=== PATIENT | male | born 1935 | race Caucasian/White ===

== ENCOUNTER 2017-06-30 08:09 | Outpatient (RCR) | payer MEDICARE, OTHER, SELFPAY | END 2017-06-30 08:30 | disposition home or self-care (01) | LOC: LAB 08:09 | PROVIDERS: Family Provider Family Medicine; PCP Family Medicine; Visit Provider Internal Medicine Cardiovascular Disease | DX: I48.0 Paroxysmal atrial fibrillation (principal); Z79.01 Long term (current) use of anticoagulants | CPT/HCPCS: 36416; 85610 ==

== ENCOUNTER 2017-08-10 09:49 | Outpatient (RCR) | payer MEDICARE, OTHER, SELFPAY ==
[2017-07-27 10:41] LABS: Prothrombin Time Fingerstick 36.1 SEC (11.9-14.4)
[2017-08-04 09:36] LABS: Prothrombin Time Fingerstick 29.4 SEC (11.9-14.4)
[2017-08-10 10:01] LABS: Prothrombin Time Fingerstick 32.1 SEC (11.9-14.4)
== END 2017-08-10 10:15 | disposition home or self-care (01) ==
LOC: LAB 09:49
PROVIDERS: Family Provider Family Medicine; PCP Family Medicine; Visit Provider Internal Medicine Cardiovascular Disease
DX: I48.0 Paroxysmal atrial fibrillation (principal); Z79.01 Long term (current) use of anticoagulants
CPT/HCPCS: 36416; 85610

== ENCOUNTER 2017-09-06 08:09 | Outpatient (RCR) | payer MEDICARE, OTHER, SELFPAY ==
[2017-08-24 08:21] LABS: Prothrombin Time Fingerstick 36.2 SEC (11.9-14.4)
[2017-09-06 08:21] LABS: Prothrombin Time Fingerstick 24.5 SEC (11.9-14.4)
== END 2017-09-06 09:00 | disposition home or self-care (01) ==
LOC: LAB 08:09
PROVIDERS: Family Provider Family Medicine; PCP Family Medicine; Visit Provider Internal Medicine Cardiovascular Disease
DX: I48.0 Paroxysmal atrial fibrillation (principal); Z79.01 Long term (current) use of anticoagulants
CPT/HCPCS: 36416; 85610

== ENCOUNTER 2017-10-05 07:58 | Outpatient (RCR) | payer MEDICARE, OTHER, SELFPAY ==
[2017-10-05 08:16] LABS: Prothrombin Time Fingerstick 20.8 SEC (11.9-14.4)
== END 2017-10-05 08:00 | disposition home or self-care (01) ==
LOC: LAB 07:58
PROVIDERS: Family Provider Family Medicine; PCP Family Medicine; Visit Provider Internal Medicine Cardiovascular Disease
DX: I48.0 Paroxysmal atrial fibrillation (principal); Z79.01 Long term (current) use of anticoagulants
CPT/HCPCS: 36416; 85610

== ENCOUNTER 2017-11-01 08:46 | Outpatient (RCR) | payer MEDICARE, OTHER, SELFPAY ==
[2017-10-19 08:16] LABS: Prothrombin Time Fingerstick 21.3 SEC (11.9-14.4)
[2017-11-01 09:01] LABS: Prothrombin Time Fingerstick 30.7 SEC (11.9-14.4)
== END 2017-11-01 09:00 | disposition home or self-care (01) ==
LOC: LAB 08:46
PROVIDERS: Family Provider Family Medicine; PCP Family Medicine; Visit Provider Internal Medicine Cardiovascular Disease
DX: I48.0 Paroxysmal atrial fibrillation (principal); Z79.01 Long term (current) use of anticoagulants
CPT/HCPCS: 36416; 85610

== ENCOUNTER 2017-11-25 08:45 | Outpatient (RCR) | payer MEDICARE, OTHER, SELFPAY ==
--- NOTE | 2017-11-25 08:45 | DT_ITS ---
This patient was seen during an EMR downtime November 21, 2017 - November 28, 2017. This patient may have a combination of paper and electronic documentation or all paper documentation. All documentation is viewable within the e-chart portion of [facility] for each patient visit.
[2017-11-27 20:06] LABS: Prothrombin Time Fingerstick 29.5 SEC (11.9-14.4)
== END 2017-11-25 09:00 | disposition home or self-care (01) ==
LOC: LAB 08:45
PROVIDERS: Family Provider Family Medicine; PCP Family Medicine; Visit Provider Internal Medicine Cardiovascular Disease
DX: I48.0 Paroxysmal atrial fibrillation (principal); Z79.01 Long term (current) use of anticoagulants
CPT/HCPCS: 36416; 85610

== ENCOUNTER 2017-12-27 08:17 | Outpatient (RCR) | payer MEDICARE, OTHER, SELFPAY ==
[2017-12-27 08:36] LABS: Prothrombin Time Fingerstick 24.2 SEC (11.9-14.4)
== END 2017-12-27 10:00 | disposition home or self-care (01) ==
LOC: LAB 08:17
PROVIDERS: Family Provider Family Medicine; PCP Family Medicine; Visit Provider Internal Medicine Cardiovascular Disease
DX: I48.0 Paroxysmal atrial fibrillation (principal); Z79.01 Long term (current) use of anticoagulants
CPT/HCPCS: 36416; 85610

== ENCOUNTER 2018-01-24 07:58 | Outpatient (RCR) | payer MEDICARE, OTHER, SELFPAY ==
[2018-01-24 08:21] LABS: Prothrombin Time Fingerstick 28.5 SEC (11.9-14.4)
== END 2018-01-24 09:00 | disposition home or self-care (01) ==
LOC: LAB 07:58
PROVIDERS: Family Provider Family Medicine; PCP Family Medicine; Visit Provider Internal Medicine Cardiovascular Disease
DX: I48.0 Paroxysmal atrial fibrillation (principal); Z79.01 Long term (current) use of anticoagulants
CPT/HCPCS: 36416; 85610

== ENCOUNTER 2018-02-23 08:10 | Outpatient (RCR) | payer MEDICARE, OTHER, SELFPAY ==
[2018-02-23 08:31] LABS: Prothrombin Time Fingerstick 31.1 SEC (11.9-14.4)
== END 2018-02-23 10:00 | disposition home or self-care (01) ==
LOC: LAB 08:10
PROVIDERS: Family Provider Family Medicine; PCP Family Medicine; Visit Provider Internal Medicine Cardiovascular Disease
DX: I48.0 Paroxysmal atrial fibrillation (principal); Z79.01 Long term (current) use of anticoagulants
CPT/HCPCS: 36416; 85610

== ENCOUNTER 2018-03-31 08:22 | Outpatient (RCR) | payer MEDICARE, OTHER, SELFPAY ==
[2018-03-23 08:26] LABS: Prothrombin Time Fingerstick 36.9 SEC (11.9-14.4)
[2018-03-31 08:36] LABS: Prothrombin Time Fingerstick 31.6 SEC (11.9-14.4)
== END 2018-03-31 10:00 | disposition home or self-care (01) ==
LOC: LAB 08:22
PROVIDERS: Family Provider Family Medicine; PCP Family Medicine; Referring Provider Internal Medicine Cardiovascular Disease; Visit Provider Internal Medicine Cardiovascular Disease
DX: I48.91 Unspecified atrial fibrillation (principal); Z79.01 Long term (current) use of anticoagulants
CPT/HCPCS: 36416; 85610

== ENCOUNTER 2018-04-08 22:12 | Emergency (ER) | payer MEDICARE, OTHER, SELFPAY ==
[2018-04-08 22:13] VITALS: BP 157/89; PULSE 90; RESP 18; TEMP 36.8; O2SAT 94; BMI 29.3
--- NOTE | 2018-04-08 23:05 | ED.DCSUM_ITS ---
- ER Visit Summary Date of Service: 04/08/18 Chief Complaint: Fourth toe bleeding History of Present Illness: The patient is a 82 M who presents with bleeding from his right fourth toe. He was clipping his toenails and excellently cut the tip of his right fourth toe. He is on warfarin due to a history of atrial fibrillation. He had bleeding for about 30 minutes and was unable to control this so presented here. His bleeding has now actually stopped prior to my evaluation. He has no other complaints. He states his INR was 2.7 earlier this week. Physical Examination: Afebrile vitals are unremarkable No distress There is a 5 mm laceration of the distal right fourth toe with no active bleeding Test Results: Not indicated Emergency Department Course and Treatment: We discussed checking the patient's INR. He states that he has been well controlled and was just 2.7 earlier this week so did not want me to repeat labs. He has no active bleeding at this time. He was advised on supportive care should he develop any recurrent bleeding. His wound was cleansed and dressed and he was discharged home. Treatment Plan: [] Disposition: Discharge Impression: Right fourth toe laceration This note was generated with [employer] dictation software. It may contain incorrect words, spelling, and punctuation that were not noted in review of the chart p rior to signing ED Disposition - Plan for ED Patient: Chief Complaint: Lower Extremity Injury Referrals: French Pimentel MD [Primary Care Provider] -
--- NOTE | 2018-04-08 23:06 | ED.DEP ---
ED Disposition - Plan for ED Patient: Chief Complaint: Lower Extremity Injury Instructions: ED Laceration Small [facility] No Sutr Referrals: French Pimentel MD [Primary Care Provider] -
[2018-04-08 23:39] VITALS: RESP 16
--- NOTE | 2018-04-08 23:40 | ED.RN ---
REVIEWED D/C INSTRUCTIONS, FOLLOW UP CARE, AND S/S THAT WOULD WARRANT A RETURN TO THE ED WITH PT. PT VERBALIZED AN UNDERSTANDING AND DENIES FURTHER QUESTIONS FOR THIS RN. PT SKIN P/W/D, RESP EVEN AND UNLABORED, PT A&O X 3, NO DISTRESS NOTED. PT AMBULATED OUT OF ED, GAIT STEADY.
== END 2018-04-08 23:41 | disposition home or self-care (01) ==
LOC: ED 23:15
PROVIDERS: Emergency Provider Emergency Medicine; Family Provider Family Medicine; PCP Family Medicine
DX: S91.114A Laceration without foreign body of right lesser toe(s) without damage to nail, initial encounter (principal); W26.8XXA Contact with other sharp object(s), not elsewhere classified, initial encounter; Y93.89 Activity, other specified; I48.91 Unspecified atrial fibrillation; I10 Essential (primary) hypertension; E11.9 Type 2 diabetes mellitus without complications; K21.9 Gastro-esophageal reflux disease without esophagitis; Z95.0 Presence of cardiac pacemaker; Z79.01 Long term (current) use of anticoagulants; Z79.899 Other long term (current) drug therapy
CPT/HCPCS: 99282; A4216

== ENCOUNTER 2018-05-05 08:50 | Outpatient (RCR) | payer MEDICARE, OTHER, SELFPAY ==
[2018-05-05 09:11] LABS: Prothrombin Time Fingerstick 38.8 SEC (11.9-14.4)
== END 2018-05-22 08:20 | disposition home or self-care (01) ==
LOC: LAB 08:50
PROVIDERS: Family Provider Family Medicine; PCP Family Medicine; Referring Provider Internal Medicine Cardiovascular Disease; Visit Provider Internal Medicine Cardiovascular Disease
DX: I48.91 Unspecified atrial fibrillation (principal); Z79.01 Long term (current) use of anticoagulants
CPT/HCPCS: 36416; 85610

== ENCOUNTER 2018-06-05 08:26 | Outpatient (RCR) | payer MEDICARE, OTHER, SELFPAY ==
[2018-05-22 08:40] LABS: Prothrombin Time Fingerstick 27.8 SEC (11.9-14.4)
[2018-06-05 08:40] LABS: Prothrombin Time Fingerstick 25.8 SEC (11.9-14.4)
--- OUTSIDE RECORDS SUMMARY | 2018-07-15 08:27 | XMS RPT_ITS ---
:1935 Author Organization OHIP Support Name Relationship Address Phone CHARLY BAEZ II Unavailable Unavailable + [place] [address] R Unavailable Unavailable Unavailable NESTOR II CHARLY Unavailable Unavailable + [place] [address] R Unavailable Unavailable Unavailable NESTOR II CHARLY Unavailable Unavailable + [place] [address] R Unavailable Unavailable Unavailable NESTOR II CHARLY Unavailable Unavailable + [place] [address] R Unavailable Unavailable Unavailable NESTOR II CHARLY Unavailable Unavailable + [place] [address] R Unavailable Unavailable Unavailable NESTOR II CHARLY Unavailable Unavailable + [place] [address] R Unavailable Unavailable Unavailable NESTOR II CHARLY Unavailable Unavailable + [place] [address] R Unavailable Unavailable Unavailable NESTOR II, CHARLY Unavailable Unavailable + [place] [address] R Unavailable Unavailable Unavailable NESTOR II CHARLY Unavailable Unavailable + [place] [address] R Unavailable Unavailable Unavailable NESTOR II CHARLY Unavailable Unavailable + [place] [address] R Unavailable Unavailable Unavailable NESTOR II CHARLY Unavailable Unavailable + [place] [address] R Unavailable Unavailable Unavailable R Unavailable Unavailable Unavailable R Unavailable Unavailable Unavailable R Unavailable Unavailable Unavailable R Unavailable Unavailable Unavailable R Unavailable Unavailable Unavailable TIMA BAEZ Unavailable [address] + [place] [address] R Unavailable Unavailable Unavailable R Unavailable Unavailable Unavailable PEG BAEZ Unavailable [address] + [facility] [address] TIMA BAEZ Unavailable [address] + [place] [address] R Unavailable Unavailable Unavailable PEG BAEZ Unavailable [address] + [place] [address] TIMA BAEZ Unavailable [address] + [place] [address] R Unavailable Unavailable Unavailable PEG BAEZ Unavailable [address] + [place] [address] TIMA BAEZ Unavailable [address] + [place] [address] R Unavailable Unavailable Unavailable Care Team Providers Name Role Phone RIVAS, Ian HALL (PA-C) Referring Unavailable HATHAWAY, Ian HALL (PA-C) Attending Unavailable HATHAWAY, Ian HALL (PA-C) Referring Unavailable HATHAWAY, Ian HALL (PA-C) Attending Unavailable HATHAWAY, Ian HALL (PA-C) Attending Unavailable HATHAWAY, Ian HALL (PA-C) Attending Unavailable CLARIBELFRENCH Attending Unavailable HATHAWAY, Ian HALL (PA-C) Referring Unavailable HATHAWAY, Ian HALL (PA-C) Attending Unavailable HATHAWAY, Ian HALL (PA-C) Referring Unavailable HATHAWAY, Ian HALL (PA-C) Attending Unavailable HATHAWAY, Ian HALL (PA-C) Attending Unavailable CARLY DOBSON (LITERACY COACH) Attending Unavailable HATHAWAY, Ian HALL (PA-C) Referring Unavailable HATHAWAY, Ian HALL (PA-C) Attending Unavailable HATHAWAY, Ian HALL (PA-C) Referring Unavailable HATHAWAY, Ian HALL (PA-C) Attending Unavailable HATHAWAY, Ian HALL (PA-C) Referring Unavailable Temo, West Attending Unavailable Claribel, French Referring Unavailable Temo, Loyd Attending Unavailable [place], French Primary Care Unavailable Elidia Pacheco Attending Unavailable Claribel, French Referring Unavailable [place], French Primary Care Unavailable Temo, West Attending Unavailable [place], French Primary Care Unavailable Temo, West Referring Unavailable Maria Luisa Santiago Attending Unavailable [place], French Referring Unavailable Claribel, French Primary Care Unavailable Temo, Loyd Attending Unavailable Temo, West Referring Unavailable [place], French Primary Care Unavailable Babs High Attending Unavailable Temo, West Attending Unavailable Temo, Loyd Referring Unavailable Claribel, French Primary Care Unavailable Tara, Elidia Attending Unavailable Claribel, French Referring Unavailable Temo, West Attending Unavailable Temo, West Referring Unavailable [place], French Primary Care Unavailable Temo, Loyd Attending Unavailable Temo, West Referring Unavailable Claribel, French Primary Care Unavailable Temo, West Attending Unavailable Temo, Loyd Referring Unavailable Claribel, French Primary Care Unavailable lEidia Pacheco Attending Unavailable [place], French Referring Unavailable Claribel, French Primary Care Unavailable Temo, West Attending Unavailable Temo, West Referring Unavailable [place], French Primary Care Unavailable Temo, Loyd Attending Unavailable Temo, West Referring Unavailable Claribel, French Primary Care Unavailable Temo, Loyd Attending Unavailable Temo, West Referring Unavailable Claribel, French Primary Care Unavailable Elidia Pacheco Attending Unavailable Claribel, French Referring Unavailable [place], French Primary Care Unavailable Kailash Bowden Attending Unavailable Temo, West Attending Unavailable Temo, West Referring Unavailable Claribel, French Primary Care Unavailable Temo, Loyd Attending Unavailable Temo, West Referring Unavailable [place], French Primary Care Unavailable PROBLEMS PROBLEMS DATE TYPE CONDITION / CODE ATTENDING STATUS SOURCE 06/05/2018 Unknown I48.91 - Unspecified Temo, Loyd Active [facility] atrial fibrillation Community / I48.91(ICD-10) Hospital Repository 05/30/2018 Unknown R07.9 - Chest pain, Temo, West Active [facility] unspecified / Community R07.9(ICD-10) Hospital Repository 05/30/2018 Unknown I48.0 - Paroxysmal Temo, West Active [facility] atrial fibrillation Community / I48.0(ICD-10) Hospital Repository 05/30/2018 Unknown I10 - Essential Temo, Loyd Active [facility] (primary) Community hypertension / Hospital I10(ICD-10) Repository 05/30/2018 Unknown Z95.0 - Presence of Temo, Loyd Active [facility] cardiac pacemaker / Community Z95.0(ICD-10) Hospital Repository 05/30/2018 Unknown E78.00 - Pure Temo, Loyd Active [facility] hypercholesterolemia Community , unspecified / Hospital E78.00(ICD-10) Repository 04/20/2018 Active Vitamin B12 NA Active [facility] deficiency anemia, [facility] unspecified / [place] D51.9(ICD-10) Repository 01/13/2018 Active Type 2 diabetes NA Active [facility] mellitus with [facility] diabetic chronic [place] kidney disease / Repository E11.22(ICD-10) 04/25/2017 Active Prediabetes / NA Active [facility] R73.03(ICD-10) [facility] [place] Repository 05/18/2005 Active Mixed hyperlipidemia NA Active [facility] / E78.2(ICD-10) [facility] [place] Repository 10/13/2017 Active Vitamin D NA Active [place] deficiency, [facility] unspecified / [place] E55.9(ICD-10) Repository 07/20/2017 Active Unknown / RIVAS M Active [facility] UNK(Unknown) ANISA (PA-C) [facility] [place] Repository 11/14/2013 Active Chronic kidney NA Active [facility] disease, stage 3 [facility] (moderate) / [place] N18.3(ICD-10) Repository 05/18/2005 Active Essential (primary) NA Active [place] hypertension / [facility] I10(ICD-10) [place] Repository PROCEDURES PROCEDURES No Procedure Records FoundRESULTS RESULTS PROTIME W/INR Collected: 06/05/2018 Status: F Source: [place] FINGERSTICK 8:34 AM [facility] REPOSITORY TYPE CODE TESTS RESULT OUT OF REFERENCE UNITS RANGE LAB L9200.1001 11.9-14.4 SEC High PROTIME ISTAT 25.8 Result Comment: Reference Range 11.9 - 14.4 LAB L9200.2000 Normal INR ISTAT 2.20 Result Comment: Critical Value > 3.5 Performed By: #### [id number] #### [facility] Point of Care [address] [place] [address] CARDIOLOGY VISIT Observed: 05/30/2018 Status: F Source: [place] REPORT 9:28 AM [facility] REPOSITORY [facility] [address] [place] [address] OFFICE VISIT Date of Service: 05/30/18 MR#: [id number] Acct: [id number] Name: PEG BAEZ Rep #: [id number] : 1935 Provider: Loyd Plascencia MD Age/Sex: 82/M Location: [facility] Status: Signed HPI HPI Chief Complaint: Follow-up visit Details: PEG NESTOR, is a 82 M who presents to the office today for a follow-up visit. He is a gentleman with a history of paroxysmal atrial fibrillation, tachybradycardia syndrome, 2-1 AV block status post pacemaker placement. He also has a history of hypertension and aortic valve calcification. He returns for routine follow-up visit. He occasionally feels some fluttering but has not had any chest pain or shortness breath or paroxysmal nocturnal dyspnea or pedal edema he denies any neck arm or jaw discomfort suggest angina. He says that occasionally he does have some chest burning and he does not know what this is. He continues to follow-up in our pacemaker clinic via remote evaluation. His physical exam today demonstrates clear lung young regular rate and rhythm and no pedal edema. Intake Vital Signs05/30/18 Height 6 ft 3 in 05/30/18 Weight: 235 lb 05/30/18 Body Mass Index (BMI) 29.3 05/30/18 Blood Pressure 146/60 H 05/30/18 Respiratory Rate 18 Intake Visit Reasons: 9 M FU Allergies lisinopril Allergy (Severe, Verified 05/30/18 07:26) rash atorvastatin [From Lipitor] Allergy (Verified 05/30/18 07:26) Unknown doxazosin Allergy (Verified 05/30/18 07:26) Unknown hydrochlorothiazide Allergy (Verified 05/30/18 07:26) Unknown niacin [From Niaspan Extended-Release] Allergy (Verified 05/30/18 07:26) Unknown propranolol [From Inderal LA] Allergy (Verified 05/30/18 07:26) Unknown quinine Allergy (Verified 05/30/18 07:26) Unknown tamsulosin [From Flomax] Allergy (Verified 05/30/18 07:26) Unknown verapamil [From Calan] Allergy (Verified 05/30/18 07:26) Unknown Medications Bumetanide [Bumex] 1 mg PO DAILY 01/24/17 [History Confirmed 05/30/18] Cyanocobalamin (Vitamin B-12) [Vitamin B-12] 1,000 mcg SL DAILY 01/24/17 [History Confirmed 05/30/18] Hydrocodone/Acetaminophen [Faxon 5-325 Tablet] 1 tab PO BID PRN 01/24/17 [History Confirmed 05/30/18] Hydrocortisone [Procto-Med Hc] 30 gm RC BID PRN PRN 01/24/17 [History Confirmed 05/30/18] Omeprazole [Prilosec] 20 mg PO DAILY 01/24/17 [History Confirmed 05/30/18] Polyethylene Glycol 3350 [Miralax] 17 gm PO DAILY PRN PRN 01/24/17 [History Confirmed 05/30/18] Simvastatin [Zocor] 20 mg PO QHS 01/24/17 [History Confirmed 05/30/18] traZODone [Desyrel] 50 mg PO QHS PRN PRN 01/24/17 [History Confirmed 05/30/18] losartan 50 mg tablet 50 mg PO DAILY 30 Days #30 08/18/17 [History Confirmed 05/30/18] warfarin 5 mg tablet 2.5 mg PO 6XW tab 10/19/17 [History Confirmed 05/30/18] DiphenhydrAMINE [Benadryl] 25 mg PO QHS 04/08/18 [History Confirmed 05/30/18] [facility] Medical History Old myocardial infarction (Chronic) Chronic systolic (congestive) heart failure (Chronic) Essential (primary) hypertension (Chronic) Paroxysmal atrial fibrillation (Chronic) Aortic valve calcification (Chronic) Atrioventricular block, Mobitz type 2 (Chronic) Atrioventricular block, complete (Chronic) Hyperlipidemia (Chronic) skilled nursing (current) use of anticoagulants (Chronic) Tachy-miller syndrome (Chronic) Chronic renal disease, stage 3, moderately decreased glomerular filtration rate between 30-59 mL/min/1.73 square meter (Chronic) Arthritis (Chronic) Type 2 diabetes mellitus (Chronic) Surgical History Cardiac pacemaker in situ (Chronic 01/26/17) History of loop recorder (Resolved) History of open reduction and internal fixation (ORIF) procedure (Resolved) Family History Father CAD (coronary artery disease) Brother CAD (coronary artery disease) Social History Smoking Status: Former smoker how long ago did patient quit smokin alcohol intake: current alcohol intake frequency: a few times a week Alcohol type: hard liquor substance use type: does not use caffeine: Yes Type: coffee Number of servings: 3 what type of physical activity do you participate in: none seatbelt use: always do you feel safe at home: Yes ROS Const Const: Negative for fatigue, weakness, difficulty sleeping, frequent falls, excessive sweating or headache(s) Eyes Eyes: Negative for loss of peripheral vision, transient loss of vision, blurry vision, tunnel vision or double vision ENT ENT: Negative for headache(s), dizziness, Nosebleed/epistaxis or balance problems Cardio Chest Pain: Yes (Describes it as left side heart burn and fluttering) Frequency: weekly Palpitations: No Edema: Bilateral (BLE ankle edema left>right) Muscle aches with walking: None Resp Respiratory: Negative for SOB with activity, SOB at rest, SOB orthopnea\SOB lying down, paroxysmal nocturnal dyspnea or Cough GI GI: Negative nausea, heartburn, black,tarry stools or vomiting : Negative for hematuria Musc Musc: Negative for balance problems, muscle aches/ myalgia, muscle weakness or joint pain Skin Skin: Negative non-healing lesions, unusual bruising or rash Neuro Neuro: Negative for weakness, frequent falls, headache(s), blurry vision, double vision, dizziness, lightheadedness, orthostatic symptoms, near syncope, syncope or lack of coordination Aleksandar Hematologic/Lymphatic: Negative for easy bruising or easy bleeding Endo Endo: Negative for fatigue, excessive sweating or increased thirst/drinking Psych Psych: Negative for anxiety or depression Allergy Allergy/Immunology: Negative for hives, Negative for rash Cardiology Exam Const Appearance: cooperative, healthy appearing, well developed, well groomed and no acute distress Nutritional Appearance: well nourished and average body habitus Orientation: alert, awake and oriented x3 Head Head: normal to inspection, normocephalic and atraumatic Ears: hearing grossly normal bilaterally and external ears normal Nose: external nose normal, nasal mucous membranes and turbinates normal, nares normal, septum normal, no nasal discharge Face and Sinus: face symmetric Mouth: oral mucosae normal, tongue normal, oropharynx normal and moist mucous membranes Teeth and gingiva: dentition normal Throat: posterior oropharynx normal, tonsils normal and uvula midline Eyes General: appearance normal, both eyes and all related structures Eyelids: eyelids normal Conjunctivae: conjunctivae normal Pupils: PERRL, normal by confrontation and accommodation normal EOM: EOM intact bilaterally Neck Neck: normal visual inspection, trachea midline and no JVD JVD: +5 Carotids: normal carotid upstroke and bounding pulses Chest Chest inspection: normal inspection of the chest, symmetric chest movement and normal respiratory effort Auscultation: Bilateral: Clear to Auscultation Cardio Palpation: normal PMI Rate: regular rate Rhythm: regular rhythm Heart sounds: S1 normal, S2 normal and normal, physiologic split S2; negative rub, gallop or murmur GI GI: normal to inspection, soft, no hepatosplenomegaly and bowel sounds present Neuro General: alert, awake, oriented x3, no focal sensory deficit, gait normal and moves all extremities Skin Skin: no rashes or lesions noted Extremities Pulses: Normal: Right Femoral Pulse, Left Femoral Pulse, Right Dorsalis Pedis Pulse, Left Dorsalis Pedis Pulse, Right Posterior Tibial Pulse, Left Posterior Tibial Pulse, Right Radial Pulse, Left Radial Pulse Lower Extremity Edema: None: Bilateral Musculoskel Musculoskeletal: No joint tenderness Psych Psychological: normal affect Assessment AND Plan 1. Chest pain R07.9 Plan He does have some chest pain which appears to be atypical. The etiology of the above is not entirely clear I recommend that we obtain a myocardial perfusion stress test to exclude any evidence of ischemia. 2. Paroxysmal atrial fibrillation I48.0 Plan He does have a history of paroxysmal atrial fibrillation. We will continue to monitor this through pacemaker interrogations. He will remain on his anticoagulation with a therapeutic INR goal of 2-3. 3. Essential (primary) hypertension I10 Plan He does have a history of hypertension. His blood pressure appears to be fairly decently controlled. We will continue the same medications without making any changes. His last echocardiogram last year demonstrated an ejection fraction of 47%. 4. Cardiac pacemaker in situ Z95.0 PPM insertion 01/26/2017 Plan He is status post permanent pacemaker implantation. He continues to follow-up here in our pacemaker clinic. His last pacemaker check was in March 2018 and no significant abnormalities were noted. 5. Pure hypercholesterolemia E78.00 Plan He does have a history of hyperlipidemia. He remains on low to medium intensity statin. A lipid profile will be obtained as appropriate. Plan Detail Follow Up 6 Months ([facility]) Coding Level of Care Code Off vis,est,level 4 Diagnoses Chest pain R07.9 Paroxysmal atrial fibrillation I48.0 Essential (primary) hypertension I10 Cardiac pacemaker in situ Z95.0 Pure hypercholesterolemia E78.00 Hyperlipidemia type: pure hypercholesterolemia Coding Level of Care Code Off vis,est,level 4 Diagnoses Chest pain R07.9 Paroxysmal atrial fibrillation I48.0 Essential (primary) hypertension I10 Cardiac pacemaker in situ Z95.0 Pure hypercholesterolemia E78.00 Hyperlipidemia type: pure hypercholesterolemia 05/30/18 0928 <Electronically signed by oLyd Plascencia MD> Date Loyd Plascencia MD Cosigner Signature: Date (if applicable) CC: French Pimentel MD PROTIME W/INR Collected: 05/22/2018 Status: F Source: [place] FINGERSTIC 8:33 AM [facility] REPOSITORY TYPE CODE TESTS RESULT OUT OF REFERENCE UNITS RANGE LAB L9200.1001 11.9-14.4 SEC High PROTIME ISTAT 27.8 Result Comment: Reference Range 11.9 - 14.4 LAB L9200.2000 Normal INR ISTAT 2.40 Result Comment: Critical Value > 3.5 Performed By: #### [id number] #### [facility] Point of [facility] [address] [place], [place] [id number] PROTIME W/INR Collected: 05/05/2018 Status: F Source: [place] FINGERSTICK 9:02 AM [facility] REPOSITORY TYPE CODE TESTS RESULT OUT OF REFERENCE UNITS RANGE LAB L9200.1001 11.9-14.4 SEC High PROTIME ISTAT 38.8 Result Comment: Reference Range 11.9 - 14.4 LAB L9200.2000 Normal INR ISTAT 3.40 Result Comment: Critical Value > 3.5 Performed By: #### [id number] #### [facility] Point of Care [address] [facility] [place], [place] [id number] PROGRESS Observed: 04/24/2018 Status: COMPLETED Source: [place] 8:12 AM [facility] REPOSITORY HNO ID: [id number] Author: Ian Hall (Andria) Rivas Service: (none) Author Type: Physician Electrical Wiring Lineman Type: Progress Notes Filed: 04/24/2018 6:18 PM Note Text: 82 year old male with c/o here for 3 month follow-up; only complaint is recent cold symptoms that started the last couple of days: runny nose, post-nasal drip and cough. 1.Post-traumatic osteoarthritis of left foot -same as always, pain and burning, takes narcotic for this -if up on foot 5 or 6 out of 10, when keeps elevated 2 out of 10 - chronic swelling left ankle 2. 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 Plascencia, last visit to office was 4 months ago, have one scheduled May 20 3. Gastroesophageal reflux disease without esophagitis -no complaints today, no issues with medication -thinks he has a cold, feels post-nasal drip 4. Mixed hyperlipidemia -requests refill for Simvastatin -reviewed lipid panel from September 2017 5.Essential hypertension, benign -takes BP periodically at home, usually 130/90 - No dizziness, headache, chest pain 6.Lumbar disc displacement without myelopathy -Back hurts all the time, hip, arthritis in neck -Hard to walk for long distance -Does not take any meds, does not hurt when sitting -No pattern of diversion. 7.Ckd (chronic kidney disease) stage 3, gfr 30-59 ml/min (hcc) Component Latest Ref Rng AND Units 07/18/2017 10/13/2017 01/13/2018 04/20/2018 BUN 7 - 21 mg/dL 27 (H) 30 (H) 24 23 (H) Creatinine 0.73 - 1.22 mg/dL 1.82 (H) 1.67 (H) 1.89 (H) 1.61 (H) 8. Chronic anticoagulation -Takes warfarin, last INR 2.7 2 weeks ago 9. Paroxysmal atrial fibrillation (hcc) -feels flutter every once in a while 10. Acute diastolic chf (congestive heart failure) (hcc) -has appointment scheduled in May with cardiology HISTORIES FAMILY HISTORY Problem Relation Age of Onset - Cancer Mother Lung cancer - Heart Father - Diabetes Brother 2 HALF BROTHERS - Coronary Artery Disease Brother CABG PAST MEDICAL HISTORY Diagnosis Date - Diaphragmatic hernia without mention of obstruction or gangrene Hiatal hernia - Diarrhea - Esophageal reflux - Generalized osteoarthrosis, unspecified site - Internal hemorrhoids without mention of complication - Other and unspecified disc disorder of unspecified region Intervertebral disc disorders - Other and unspecified hyperlipidemia - Personal history of malignant neoplasm of skin 01/17/2011 - Prediabetes Diabetes mellitus - Unspecified cardiovascular disease - 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 PAST SURGICAL HISTORY Procedure Laterality Date - COLONOSCOP W/ OR W/O BRSH SPEC 06/01/2013 Colonoscopy - COLONOSCOPY W/BX 02/22/06 - EGD W/O OR W/BRUSH/WASH 02/05/03 EGD - PAST SURGICAL HISTORY OF 1990 left foot surgery - PAST SURGICAL HISTORY OF bilateral mastoids - as an - REMV CATARACT EXTRACAP,INSERT LENS 2012 Cataract Extraction with PC IOL - REMV CATARACT EXTRACAP,INSERT LENS 2012 Cataract Extraction with PC IOL Social History Marital status: Spouse name: Years of education: Number of children: 2 Occupational History Occupation Employer Comment [employer] Social History Main Topics Smoking status: Former Smoker Packs/day: 0.00 Years: 0.00 Smokeless tobacco: Never Used Comment: quit in 1988 Alcohol use: Yes Comment: socially Drug use: No ACTIVE PROBLEM LIST Allergic Rhinitis, Cause Unspecified Coronary Atherosclerosis Esophageal Reflux Mixed Hyperlipidemia Essential Hypertension, Benign Osteoarthrosis, Generalized, Involving Multiple Sites Diaphragmatic Hernia Without Mention of Obstruction Or Gangrene Insomnia, Unspecified B12 Deficiency Anemia Back Pain Sciatica Lumbar Disc Displacement Without Myelopathy Lumbar Facet Arthropathy Lumbar Spondylosis Lumbar Stenosis Bph (Benign Prostatic Hyperplasia) Ckd (Chronic Kidney Disease) Stage 3, Gfr 30-59 Ml/Min ([facility]) Bradycardia Trifascicular Bundle Branch Block L-S Radiculopathy Psvt (Paroxysmal Supraventricular Tachycardia) ([facility]) Dependent Edema Chronic Anticoagulation Paroxysmal Atrial Fibrillation ([facility]) Status Post Placement of Implantable Loop Recorder Sick Sinus Syndrome ([facility]) [place] (Myocardial Infarction) Acute Diastolic Chf (Congestive Heart Failure) ([facility]) Complete Heart Block ([facility]) Prediabetes Pacemaker Current Outpatient Prescriptions: hydrocortisone (PROCTOSOL HC) 2.5 % rectal cream Apply one application to hemorrhoids twice a day. Disp: 2 Tube Rfl: 3 losartan (COZAAR) 100 mg tablet Take 1 tablet by mouth once daily. Disp: 30 tablet Rfl: 11 omeprazole (PRILOSEC) 20 mg capsule Take 1 capsule by mouth once daily. Disp: 90 capsule Rfl: 3 bumetanide (BUMEX) 2 mg tablet Take 0.5 tablets by mouth once daily. May take whole pill x 2-3 days prn weight gain with increased swelling Disp: 30 tablet Rfl: 6 traZODone (DESYREL) 50 mg tablet TAKE 1 TABLET BY MOUTH DAILY AT BEDTIME NEEDED FOR SLEEP. Disp: 90 tablet Rfl: 3 clotrimazole-betamethasone (LOTRISONE) cream Apply 1 application to affected area twice daily. UNTIL CLEAR FOR UP TO 2-3 WEEKS Disp: 15 g Rfl: 1 HYDROcodone-acetaminophen (NORCO) 5-325 mg per tablet Take 1 tablet by mouth twice daily as needed for up to 30 days.Earliest Fill Date: 09/18/17 Disp: 180 tablet Rfl: 0 simvastatin (ZOCOR) 20 mg tablet Take 1 tablet by mouth daily at bedtime. Disp: 90 tablet Rfl: 3 warfarin (COUMADIN) 5 mg tablet Take 0.5 tablets by mouth once daily. Disp: 30 tablet Rfl: 6 diphenhydrAMINE (BENADRYL) 25 mg capsule Take 1 capsule by mouth every 6 hours as needed. Disp: Rfl: 0 Cyanocobalamin 1,000 mcg subl Dissolve 1 tablet under the tongue once daily. One tablet under tongue daily. Disp: Rfl: 0 polyethylene glycol, bulk, 100 % powd 17 g once daily. Disp: 527 g Rfl: 6 HYDROcodone-acetaminophen (NORCO) 5-325 mg per tablet Take 1 tablet by mouth twice daily as needed for up to 30 days.Earliest Fill Date: 03/19/18 Disp: 60 tablet Rfl: 0 HYDROcodone-acetaminophen (NORCO) 5-325 mg per tablet Take 1 tablet by mouth twice daily as needed for up to 30 days.Earliest Fill Date: 02/17/18 Disp: 60 tablet Rfl: 0 HYDROcodone-acetaminophen (NORCO) 5-325 mg per tablet Take 1 tablet by mouth twice daily as needed for up to 30 days.Earliest Fill Date: 01/18/18 Disp: 60 tablet Rfl: 0 No current facility-administered medications for this visit. DTAP,TDAP,TD(1 - Tdap) due on 05/07/2016 DILATED RETINAL EXAM due on 11/04/2017 HBA1C due on 04/14/2018 EXAM: BP 124/70 Pulse 88 Temp 37.3 ?C (99.1 ?F) (Tympanic) Resp 20 Wt 108.4 kg (239 lb) BMI 30.69 kg/m? Pleasant Elderly male in no acute distress. Alert and oriented all spheres. Normal affect and cognition. Speech normal. No deficits to learning or comprehension. Skin warm, dry, pink to lips and nailbeds. Normal turgor. Respirations regular and unlabored. Cardiac: RRR, S1 and S2 appreciated. No murmurs. Respiratory: Lungs clear to auscultation. No wheezing or rhonci appreciated. Abdomen: Abdomen, soft and non-tender to palpation. Bowel sounds heard in all quadrants. HEENT: Moderate amount of gold cerumen present bilaterally in ear canals. Cerumen obstructed view of left TM. Right TM pearly rodriguez. Nasal mucosa slightly erythematous. Neck: No lymphadenopathy. No difficulty with swallowing, smooth glide motion. Extrem: no clubbing, cyanosis. Positive for bilateral ankle edema with the left more swollen than the right. Extremities are warm and pink with prompt capillary refill. ASSESSMENT/PLAN: 1. Atherosclerosis of knik coronary artery of knik heart without angina pectoris - ICD9: 414.01, ICD10: I25.10 (primary diagnosis) Stable, asymptom,atic. Follows with Dr. Plascencia. 2. Post-traumatic osteoarthritis of left foot - ICD9: 715.27, ICD10: M19.172 - HYDROCODONE 5 MG-ACETAMINOPHEN 325 MG TABLET - HYDROCODONE 5 MG-ACETAMINOPHEN 325 MG TABLET - HYDROCODONE 5 MG-ACETAMINOPHEN 325 MG TABLET No evidence of diversion 3. Gastroesophageal reflux disease without esophagitis - ICD9: 530.81, ICD10: K21.9 - Continue treatment with Prilosec 20 mg QD 4. Mixed hyperlipidemia - ICD9: 272.2, ICD10: E78.2 - good control - Continue current medication (Simvastatin). 5. Essential hypertension, benign - ICD9: 401.1, ICD10: I10 - good control - Continue current medication (Losartan) - Recommend to continue home blood pressure monitoring - Goal of BP <130/80 6. Lumbar disc displacement without myelopathy - ICD9: 722.10, ICD10: M51.26 -Chronic low back pain 7. CKD (chronic kidney disease) stage 3, GFR 30-59 ml/min (HCC) - ICD9: 585.3, ICD10: N18.3 -Recheck labs ? 8. Chronic anticoagulation - ICD9: V58.61, ICD10: Z79.01 -Continue to monitor INR 9. Paroxysmal atrial fibrillation (HCC) - ICD9: 427.31, ICD10: I48.0 -Cardiology follow-up with Dr. Plascencia in May 29. Acute diastolic CHF (congestive heart failure) (HCC) - ICD9: 428.31, 428.0, ICD10: I50.31 -Continue to monitor edema Sandi Méndez Student History co-examined, history verified and diagnoses and plan developed together with student. Wan Hathaway PA-C April 24, 2018 6:18 PM. CNOV Observed: 04/24/2018 Status: COMPLETED Source: [place] 8:00 AM [facility] REPOSITORY Office Visit (FAMPWS) PEG BAEZ ([id number]) 1935 NF Date Time Provider Department 04/24/18 8:00 AM Ian HATHAWAY) FAMPWS During your visit today, we recorded the following information about you: Temperature Pulse Respiration Blood pressure 99.1 degrees 88/minute 20/minute 124/70 Weight 108.4 kg Ian Hathaway PA-C 04/24/2018 6:18 PM Signed 82 year old male with c/o here for 3 month follow-up; only complaint is recent cold symptoms that started the last couple of days: runny nose, post-nasal drip and cough. 1.Post-traumatic osteoarthritis of left foot -same as always, pain and burning, takes narcotic for this -if up on foot 5 or 6 out of 10, when keeps elevated 2 out of 10 - chronic swelling left ankle 2. 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 Plascencia, last visit to office was 4 months ago, have one scheduled May 20 3. Gastroesophageal reflux disease without esophagitis -no complaints today, no issues with medication -thinks he has a cold, feels post-nasal drip 4. Mixed hyperlipidemia -requests refill for Simvastatin -reviewed lipid panel from September 2017 5.Essential hypertension, benign -takes BP periodically at home, usually 130/90 - No dizziness, headache, chest pain 6.Lumbar disc displacement without myelopathy -Back hurts all the time, hip, arthritis in neck -Hard to walk for long distance -Does not take any meds, does not hurt when sitting -No pattern of diversion. 7.Ckd (chronic kidney disease) stage 3, gfr 30-59 ml/min ([facility]) Component Latest Ref Rng AND Units 07/18/2017 10/13/2017 01/13/2018 04/20/2018 BUN 7 - 21 mg/dL 27 (H) 30 (H) 24 23 (H) Creatinine 0.73 - 1.22 mg/dL 1.82 (H) 1.67 (H) 1.89 (H) 1.61 (H) 8. Chronic anticoagulation -Takes warfarin, last INR 2.7 2 weeks ago 9. Paroxysmal atrial fibrillation (hcc) -feels flutter every once in a while 10. Acute diastolic chf (congestive heart failure) ([facility]) -has appointment scheduled in May with cardiology HISTORIES FAMILY HISTORY Problem Relation Age of Onset - Cancer Mother Lung cancer - Heart Father - Diabetes Brother 2 HALF BROTHERS - Coronary Artery Disease Brother CABG PAST MEDICAL HISTORY Diagnosis Date - Diaphragmatic hernia without mention of obstruction or gangrene Hiatal hernia - Diarrhea - Esophageal reflux - Generalized osteoarthrosis, unspecified site - Internal hemorrhoids without mention of complication - Other and unspecified disc disorder of unspecified region Intervertebral disc disorders - Other and unspecified hyperlipidemia - Personal history of malignant neoplasm of skin 01/17/2011 - Prediabetes Diabetes mellitus - Unspecified cardiovascular disease - 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 PAST SURGICAL HISTORY Procedure Laterality Date - COLONOSCOP W/ OR W/O BRSH SPEC 06/01/2013 Colonoscopy - COLONOSCOPY W/BX 02/22/06 - EGD W/O OR W/BRUSH/WASH 02/05/03 EGD - PAST SURGICAL HISTORY OF 1990 left foot surgery - PAST SURGICAL HISTORY OF bilateral mastoids - as an - REMV CATARACT EXTRACAP,INSERT LENS 2012 Cataract Extraction with PC IOL - REMV CATARACT EXTRACAP,INSERT LENS 2012 Cataract Extraction with PC IOL Social History Marital status: Spouse name: Years of education: Number of children: 2 Occupational History Occupation Employer Comment [employer] Social History Main Topics Smoking status: Former Smoker Packs/day: 0.00 Years: 0.00 Smokeless tobacco: Never Used Comment: quit in 1988 Alcohol use: Yes Comment: socially Drug use: No ACTIVE PROBLEM LIST Allergic Rhinitis, Cause Unspecified Coronary Atherosclerosis Esophageal Reflux Mixed Hyperlipidemia Essential Hypertension, Benign Osteoarthrosis, Generalized, Involving Multiple Sites Diaphragmatic Hernia Without Mention of Obstruction Or Gangrene Insomnia, Unspecified B12 Deficiency Anemia Back Pain Sciatica Lumbar Disc Displacement Without Myelopathy Lumbar Facet Arthropathy Lumbar Spondylosis Lumbar Stenosis Bph (Benign Prostatic Hyperplasia) Ckd (Chronic Kidney Disease) Stage 3, Gfr 30-59 Ml/Min ([facility]) Bradycardia Trifascicular Bundle Branch Block L-S Radiculopathy Psvt (Paroxysmal Supraventricular Tachycardia) ([facility]) Dependent Edema Chronic Anticoagulation Paroxysmal Atrial Fibrillation ([facility]) Status Post Placement of Implantable Loop Recorder Sick Sinus Syndrome ([facility]) [place] (Myocardial Infarction) Acute Diastolic Chf (Congestive Heart Failure) ([facility]) Complete Heart Block ([facility]) Prediabetes Pacemaker Current Outpatient Prescriptions: hydrocortisone (PROCTOSOL HC) 2.5 % rectal cream Apply one application to hemorrhoids twice a day. Disp: 2 Tube Rfl: 3 losartan (COZAAR) 100 mg tablet Take 1 tablet by mouth once daily. Disp: 30 tablet Rfl: 11 omeprazole (PRILOSEC) 20 mg capsule Take 1 capsule by mouth once daily. Disp: 90 capsule Rfl: 3 bumetanide (BUMEX) 2 mg tablet Take 0.5 tablets by mouth once daily. May take whole pill x 2-3 days prn weight gain with increased swelling Disp: 30 tablet Rfl: 6 traZODone (DESYREL) 50 mg tablet TAKE 1 TABLET BY MOUTH DAILY AT BEDTIME NEEDED FOR SLEEP. Disp: 90 tablet Rfl: 3 clotrimazole-betamethasone (LOTRISONE) cream Apply 1 application to affected area twice daily. UNTIL CLEAR FOR UP TO 2-3 WEEKS Disp: 15 g Rfl: 1 HYDROcodone-acetaminophen (NORCO) 5-325 mg per tablet Take 1 tablet by mouth twice daily as needed for up to 30 days.Earliest Fill Date: 09/18/17 Disp: 180 tablet Rfl: 0 simvastatin (ZOCOR) 20 mg tablet Take 1 tablet by mouth daily at bedtime. Disp: 90 tablet Rfl: 3 warfarin (COUMADIN) 5 mg tablet Take 0.5 tablets by mouth once daily. Disp: 30 tablet Rfl: 6 diphenhydrAMINE (BENADRYL) 25 mg capsule Take 1 capsule by mouth every 6 hours as needed. Disp: Rfl: 0 Cyanocobalamin 1,000 mcg subl Dissolve 1 tablet under the tongue once daily. One tablet under tongue daily. Disp: Rfl: 0 polyethylene glycol, bulk, 100 % powd 17 g once daily. Disp: 527 g Rfl: 6 HYDROcodone-acetaminophen (NORCO) 5-325 mg per tablet Take 1 tablet by mouth twice daily as needed for up to 30 days.Earliest Fill Date: 03/19/18 Disp: 60 tablet Rfl: 0 HYDROcodone-acetaminophen (NORCO) 5-325 mg per tablet Take 1 tablet by mouth twice daily as needed for up to 30 days.Earliest Fill Date: 02/17/18 Disp: 60 tablet Rfl: 0 HYDROcodone-acetaminophen (NORCO) 5-325 mg per tablet Take 1 tablet by mouth twice daily as needed for up to 30 days.Earliest Fill Date: 01/18/18 Disp: 60 tablet Rfl: 0 No current facility-administered medications for this visit. DTAP,TDAP,TD(1 - Tdap) due on 05/07/2016 DILATED RETINAL EXAM due on 11/04/2017 HBA1C due on 04/14/2018 EXAM: BP 124/70 Pulse 88 Temp 37.3 ?C (99.1 ?F) (Tympanic) Resp 20 Wt 108.4 kg (239 lb) BMI 30.69 kg/m? Pleasant Elderly male in no acute distress. Alert and oriented all spheres. Normal affect and cognition. Speech normal. No deficits to learning or comprehension. Skin warm, dry, pink to lips and nailbeds. Normal turgor. Respirations regular and unlabored. Cardiac: RRR, S1 and S2 appreciated. No murmurs. Respiratory: Lungs clear to auscultation. No wheezing or rhonci appreciated. Abdomen: Abdomen, soft and non-tender to palpation. Bowel sounds heard in all quadrants. HEENT: Moderate amount of gold cerumen present bilaterally in ear canals. Cerumen obstructed view of left TM. Right TM pearly rodriguez. Nasal mucosa slightly erythematous. Neck: No lymphadenopathy. No difficulty with swallowing, smooth glide motion. Extrem: no clubbing, cyanosis. Positive for bilateral ankle edema with the left more swollen than the right. Extremities are warm and pink with prompt capillary refill. ASSESSMENT/PLAN: 1. Atherosclerosis of knik coronary artery of knik heart without angina pectoris - ICD9: 414.01, ICD10: I25.10 (primary diagnosis) Stable, asymptom,atic. Follows with Dr. Plascencia. 2. Post-traumatic osteoarthritis of left foot - ICD9: 715.27, ICD10: M19.172 - HYDROCODONE 5 MG-ACETAMINOPHEN 325 MG TABLET - HYDROCODONE 5 MG-ACETAMINOPHEN 325 MG TABLET - HYDROCODONE 5 MG-ACETAMINOPHEN 325 MG TABLET No evidence of diversion 3. Gastroesophageal reflux disease without esophagitis - ICD9: 530.81, ICD10: K21.9 - Continue treatment with Prilosec 20 mg QD 4. Mixed hyperlipidemia - ICD9: 272.2, ICD10: E78.2 - good control - Continue current medication (Simvastatin). 5. Essential hypertension, benign - ICD9: 401.1, ICD10: I10 - good control - Continue current medication (Losartan) - Recommend to continue home blood pressure monitoring - Goal of BP <130/80 6. Lumbar disc displacement without myelopathy - ICD9: 722.10, ICD10: M51.26 -Chronic low back pain 7. CKD (chronic kidney disease) stage 3, GFR 30-59 ml/min (HCC) - ICD9: 585.3, ICD10: N18.3 -Recheck labs ? 8. Chronic anticoagulation - ICD9: V58.61, ICD10: Z79.01 -Continue to monitor INR 9. Paroxysmal atrial fibrillation (HCC) - ICD9: 427.31, ICD10: I48.0 -Cardiology follow-up with Dr. Plascencia in May 29. Acute diastolic CHF (congestive heart failure) (HCC) - ICD9: 428.31, 428.0, ICD10: I50.31 -Continue to monitor edema Sandi Méndez Student History co-examined, history verified and diagnoses and plan developed together with student. Wan Hathaway PA-C April 24, 2018 6:18 PM. Referring Provider: Ian HATHAWAY ([place]) [[id number]] Allergies As of Date: 04/24/2018 Noted Allergy Reaction CALAN (VERAPAMIL HCL) 05/18/2005 DOXAZOSIN 08/18/2007 2 - Rash FLOMAX (TAMSULOSIN HCL) 05/18/2005 HCTZ (HYDROCHLOROTHIAZIDE) 07/27/2007 2 - Rash INDERAL (PROPRANOLOL HCL) 05/18/2005 LIPITOR (ATORVASTATIN CALCIUM) 05/18/2005 LISINOPRIL 10/17/2017 2 - Rash NIASPAN (NIACIN (ANTIHYPERLIPIDEM*05/18/2005 NORVASC (AMLODIPINE BESYLATE) 11/30/2017 5 - Intolerance Comments: Possible rash: off for evaluation to see if improves November 30, 2017 QUININE 05/18/2005 Date Reviewed: 04/24/2018 Reviewed by: Shaina Bansal LPN - Fully Assessed Reason for Visit: F/U 3 Month [443] Rectal Bleeding [202] Cmt: bright red blood and itching at times Reason For Visit History Recorded Primary Visit Diagnosis:Atherosclerosis of knik coronary artery of knik heart without angina pectoris [I25.10] Other Visit Diagnoses:Post-traumatic osteoarthritis of left foot [M19.172] Gastroesophageal reflux disease without esophagitis [K21.9] Mixed hyperlipidemia [E78.2] Essential hypertension, benign [I10] Lumbar disc displacement without myelopathy [M51.26] CKD (chronic kidney disease) stage 3, GFR 30-59 ml/min (HCC) [N18.3] Chronic anticoagulation [Z79.01] Paroxysmal atrial fibrillation (HCC) [I48.0] Acute diastolic CHF (congestive heart failure) ([facility]) [I50.31] Order(s):simvastatin (ZOCOR) 20 mg tabletTake 1 tablet by mouth daily at bedtime.Disp: 90 tabletRfl: 3 [START ON 06/23/2018] HYDROcodone-acetaminophen (NORCO) 5-325 mg per tabletTake 1 tablet by mouth twice daily as needed for up to 30 days. Earliest Fill Date: 06/23/18Disp: 60 tabletRfl: 0 [START ON 05/24/2018] HYDROcodone-acetaminophen (NORCO) 5-325 mg per tabletTake 1 tablet by mouth twice daily as needed for up to 30 days. Earliest Fill Date: 05/24/18Disp: 60 tabletRfl: 0 HYDROcodone-acetaminophen (NORCO) 5-325 mg per tabletTake 1 tablet by mouth twice daily as needed for up to 30 days. Earliest Fill Date: 04/24/18Disp: 60 tabletRfl: 0 Prescriptions as of 04/24/2018 Sig: SIMVASTATIN 20 MG TABLET Take 1 tablet by mouth daily * HYDROCORTISONE 2.5 % TOPICAL * Apply one application to hemo* LOSARTAN 100 MG TABLET Take 1 tablet by mouth once d* OMEPRAZOLE 20 MG CAPSULE,FARNCA* Take 1 capsule by mouth once * BUMETANIDE 2 MG TABLET Take 0.5 tablets by mouth onc* TRAZODONE 50 MG TABLET TAKE 1 TABLET BY MOUTH DAILY* CLOTRIMAZOLE-BETAMETHASONE 1 * Apply 1 application to affect* WARFARIN 5 MG TABLET Take 0.5 tablets by mouth onc* DIPHENHYDRAMINE 25 MG CAPSULE Take 1 capsule by mouth every* CYANOCOBALAMIN (VIT B-12) 1,0* Dissolve 1 tablet under the t* POLYETHYLENE GLYCOL (BULK) 10* 17 g once daily. HYDROCODONE 5 MG-ACETAMINOPHE* Take 1 tablet by mouth twice * HYDROCODONE 5 MG-ACETAMINOPHE* Take 1 tablet by mouth twice * HYDROCODONE 5 MG-ACETAMINOPHE* Take 1 tablet by mouth twice * Problem List As Of Date 04/24/2018 Noted Resolved Other specified disorder of penis [N48.89] INVALID FOR*11/12/2015 ALLERGIC RHINITIS NOS [J30.9] INVALID FOR* Coronary atherosclerosis [I25.10] INVALID FOR* ESOPHAGEAL REFLUX [K21.9] INVALID FOR* Type II or unspecified type diabetes mellitus w*INVALID FOR*11/14/2013 MIXED HYPERLIPIDEMIA [E78.2] INVALID FOR* BENIGN HYPERTENSION [I10] INVALID FOR* Other and unspecified hyperlipidemia [E78.5] 11/12/2015 Osteoarthrosis, generalized, involving multiple* Unspecified cardiovascular disease [I25.10] 11/12/2015 DIAPHRAGMATIC HERNIA [K44.9] More... Other and unspecified disc disorder of unspecif* 11/12/2015 More... 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] INVALID FOR*11/12/2015 Actinic skin damage [L57.8] INVALID FOR*11/12/2015 Solar Lentigines [L81.4] INVALID FOR*11/12/2015 Seborrheic Keratoses [L82.1] INVALID FOR*11/12/2015 Surgical Scars [L90.5] INVALID FOR*11/12/2015 Edema [R60.9] INVALID FOR*11/12/2015 Irritant contact dermatitis [L24.9] INVALID FOR*11/12/2015 Open wound(s) (multiple) of unspecified site(s)*INVALID FOR*08/29/2013 Postinflammatory skin changes: fading discolora*INVALID FOR*11/12/2015 Back pain [M54.9] INVALID FOR* Sciatica [M54.30] INVALID FOR* Lumbar disc displacement without myelopathy [M5*INVALID FOR* Lumbar facet arthropathy [M47.816] INVALID FOR* Lumbar spondylosis [M47.816] INVALID FOR* Lumbar stenosis [M48.061] INVALID FOR* Balanitis [N48.1] INVALID FOR*11/12/2015 Eczema intertrigo [L30.4] INVALID FOR*11/12/2015 Eczematous dermatitis [L30.9] INVALID FOR*11/12/2015 Fixed drug eruption [L27.1] INVALID FOR*11/12/2015 BPH (benign prostatic hyperplasia) [N40.0] INVALID FOR* CKD (chronic kidney disease) stage 3, GFR 30-59*INVALID FOR* Bradycardia [R00.1] INVALID FOR* 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 Paroxysmal atrial fibrillation (HCC) [I48.0] INVALID FOR* Status post placement of implantable loop recor*INVALID FOR* Sick sinus syndrome (HCC) [I49.5] INVALID FOR* Old [place] (myocardial infarction) [I25.2] INVALID FOR* Acute diastolic CHF (congestive heart failure) *INVALID FOR* Complete heart block (HCC) [I44.2] INVALID FOR* More... Prediabetes [R73.03] INVALID FOR* Pacemaker [Z95.0] INVALID FOR* More... Prescriptions ordered this encounter Disp Refills Start End SIMVASTATIN 20 MG TABLET 90 t* 3 04/24/2018 Route: ORAL Sig: Take 1 tablet by mouth daily at bedtime. HYDROCODONE 5 MG-ACETAMINOPHEN 325 M* 60 t* 0 06/23/2018 07/23/2018 Class: Print RX Route: ORAL Sig: Take 1 tablet by mouth twice daily as needed for up to 30 days. Earliest Fill Date: 06/23/18 HYDROCODONE 5 MG-ACETAMINOPHEN 325 M* 60 t* 0 05/24/2018 06/23/2018 Class: Print RX Route: ORAL Sig: Take 1 tablet by mouth twice daily as needed for up to 30 days. Earliest Fill Date: 05/24/18 HYDROCODONE 5 MG-ACETAMINOPHEN 325 M* 60 t* 0 04/24/2018 05/24/2018 Class: Print RX Route: ORAL Sig: Take 1 tablet by mouth twice daily as needed for up to 30 days. Earliest Fill Date: 04/24/18 Medications Discontinued During This Encounter triamcinolone acetonide (KENALOG) 0.* 60 g 2 08/04/2017 04/24/2018 Route: TOPICAL Sig: Apply 1 application to affected area three times daily. Apply sparingly to area for rash/itching. Disc: Reason for discontinue is not on file. HYDROcodone-acetaminophen (NORCO) 5-* 180 * 0 09/18/2017 04/24/2018 Class: Print RX Cmt: ID number- [id number] Route: ORAL Sig: Take 1 tablet by mouth twice daily as needed for up to 30 days. Earliest Fill Date: 09/18/17 Disc: Reason for discontinue is not on file. simvastatin (ZOCOR) 20 mg tablet 90 t* 3 07/20/2017 04/24/2018 Route: ORAL Sig: Take 1 tablet by mouth daily at bedtime. Disc: Reason for discontinue is not on file. HYDROcodone-acetaminophen (NORCO) 5-* 60 t* 0 03/19/2018 04/24/2018 Class: Print RX Route: ORAL Sig: Take 1 tablet by mouth twice daily as needed for up to 30 days. Earliest Fill Date: 03/19/18 Disc: Reason for discontinue is not on file. HYDROcodone-acetaminophen (NORCO) 5-* 60 t* 0 02/17/2018 04/24/2018 Class: Print RX Route: ORAL Sig: Take 1 tablet by mouth twice daily as needed for up to 30 days. Earliest Fill Date: 02/17/18 Disc: Reason for discontinue is not on file. HYDROcodone-acetaminophen (NORCO) 5-* 60 t* 0 01/18/2018 04/24/2018 Class: Print RX Route: ORAL Sig: Take 1 tablet by mouth twice daily as needed for up to 30 days. Earliest Fill Date: 01/18/18 Disc: Reason for discontinue is not on file. Disposition: Return in about 3 months (around 07/25/2018). Follow-up and Disposition History Recorded Letter Text . [facility] AUTHORIZATION FOR THE RELEASE OF MEDICAL INFORMATION FROM OTHER HEALTHCARE FACILITIES [facility] [address] [address] Name: Peg Baez Date of : [address] [place] [address] (home) Reason for Disclosure: Continuity of Care. Release Information From: Name of Provider/Facility: [facility] Street: City: State: Zip: Fax: Phone: Release Information To: Office Receiving: Ian Hathaway PA-C PLEASE FAX TO: [phone] I hereby authorize to release the health information indicated below that is contained in my patient records to the Recipient named above. I understand and acknowledge that this may include treatment for physical and mental illness, alcohol/drug abuse and or HIV/AIDS test results or diagnosis. This authorization does not include permission to release outpatient Psychotherapy Notes* as defined below. The release of Psychotherapy Notes requires a separate authorization. REPORTS REQUESTED: Diabetes Reports: Last Eye Exam This consent is subject to revocation at any time except to the extent the action has been taken thereon. This authorization and consent will in one year from the date of authorization written below. Your health care (or payment for care) will not be affected by whether or not you sign this authorization. Once your health care information is released, re-disclosure of your health care information by the Recipient my no longer be protected by law. Signature of Patient/Legal Guardian Printed Name Date Signed: ____/ / Relationship if not Patient If other than patient?s signature, a copy of the legal papers verifying authority (e.g. Power of Business Continuity Manager or Certificate) MUST accompany the authorization when presented. Exception: parent if signing for patient under age 18. *Psychotherapy Notes defined as notes that document private, joint, group or family counseling sessions that are from the rest of a patient?s medical record. Encounter Status:Closed by Ian HATHAWAY PA-C on 04/24/18 BASIC METABOLIC PANL Collected: 04/20/2018 Status: F Source: [place] 7:51 AM [facility] REPOSITORY TYPE CODE TESTS RESULT OUT OF REFERENCE UNITS RANGE LAB GLU 74-99 mg/dL Glucose High 109 LAB BUN 7-21 mg/dL BUN High 23 LAB CRET 0.73-1.22 mg/dL High Creatinine 1.61 LAB NA 136-144 mmol/L Sodium 139 LAB K 3.7-5.1 mmol/L Potassium 4.2 LAB CL 97-105 mmol/L Chloride 104 LAB CO2 22-30 mmol/L CO2 25 LAB AGAP 9-18 mmol/L Anion Gap 10 LAB CA 8.5-10.2 mg/dL Calcium, Total 9.7 LAB GFRAA eGFR- 50 Amer. LAB GFRNAA . eGFR-All Other Races 41 Result Comment: eGFR (Estimated GFR) Units of measure: mL/min/1.73 meters squared eGFR is derived from the reexpressed MDRD Study equation using the following parameters: serum creatinine, age, gender and race. The creatinine assay has been calibrated to be traceable to IDMS. An eGFR <60 mL/min/1.73m2 for >3 months is consistent with chronic kidney disease. Refer to KDOQI guidelines for clinical interpretation. In patients with unstable renal function, e.g. those with acute kidney injury, the eGFR may not accurately reflect actual GFR. Performed By: #### CBC #### [facility] [address] [id number] CBC Collected: 04/20/2018 Status: F Source: [place] 7:51 AM [facility] REPOSITORY TYPE CODE TESTS RESULT OUT OF REFERENCE UNITS RANGE LAB WBC 3.70-11.00 k/uL WBC 5.92 LAB RBC 4.20-6.00 m/uL RBC 4.99 LAB HGB 13.0-17.0 g/dL Hemoglobin 14.9 LAB HCT 39.0-51.0 % Hematocrit 45.9 LAB MCV 80.0-100.0 fL MCV 92.0 LAB MCH 26.0-34.0 pG MCH 29.9 LAB MCHC 30.5-36.0 g/dL MCHC 32.5 LAB RDWCV 11.5-15.0 % RDW-CV 12.6 LAB PLTCT 150-400 k/uL Platelet Count 216 LAB MPV 9.0-12.7 fL MPV 10.8 LAB ABSNUC <0.01 k/uL Absolute nRBC <0.01 Performed By: #### CBC #### [facility] [address] [place], [place] [address] VITAMIN B12 Collected: 04/20/2018 Status: F Source: [place] 7:51 AM [facility] REPOSITORY TYPE CODE TESTS RESULT OUT OF REFERENCE UNITS RANGE LAB B12 232-1245 pg/mL High Vitamin B12 >2000 Performed By: #### B12 #### [facility] [address] [place], [place] [address] DISCHARGE INSTRUCTION Observed: 04/08/2018 Status: F Source: [place] 11:06 PM [facility] REPOSITORY [facility] Medical Records Department [address] [place] [address] Discharge Instruction 04/08/182305 MR#: [id number] Acct: [id number] Name: PEG BAEZ Rep #: [id number] : 1935 82 From: Kailash Bowden MD PCP: French Pimentel MD Status: PRE ER ED Disposition - Plan for ED Patient: Chief Complaint: Lower Extremity Injury Instructions: ED Laceration Small [facility] No Sutr Referrals: French Pimentel MD [Primary Care Provider] - What to do if you have Problems For any increased pain, shortness of breath, bleeding, nausea or vomiting, chest pain, or any unexpected problems, contact your Primary Care Provider. Call [facility] ([phone]) or report to the closest Emergency Room. Call 911 if necessary. 04/08/182305 <Electronically signed by Kialash Bowdne MD> Date Kailash Bowden MD Cosigner Signature (If Indicated): Date CC: French Pimentel MD EMERGENCY DEPARTMENT Observed: 04/08/2018 Status: F Source: [place] SUMMARY 11:05 PM [facility] REPOSITORY [facility] Medical Records Department [address] [place] [address] Emergency Department Summary 04/08/18 2304 MR#: [id number] Acct: [id number] Name: PEG BAEZ Rep #: [id number] : 1935 82 From: Kailash Bowden MD PCP: French Pimentel MD Status: PRE ER - ER Visit Summary Date of Service: 04/08/18 Chief Complaint: Fourth toe bleeding History of Present Illness: The patient is a 82 M who presents with bleeding from his right fourth toe. He was clipping his toenails and excellently cut the tip of his right fourth toe. He is on warfarin due to a history of atrial fibrillation. He had bleeding for about 30 minutes and was unable to control this so presented here. His bleeding has now actually stopped prior to my evaluation. He has no other complaints. He states his INR was 2.7 earlier this week. Physical Examination: Afebrile vitals are unremarkable No distress There is a 5 mm laceration of the distal right fourth toe with no active bleeding Test Results: Not indicated Emergency Department Course and Treatment: We discussed checking the patient's INR. He states that he has been well controlled and was just 2.7 earlier this week so did not want me to repeat labs. He has no active bleeding at this time. He was advised on supportive care should he develop any recurrent bleeding. His wound was cleansed and dressed and he was discharged home. Treatment Plan: [] Disposition: Discharge Impression: Right fourth toe laceration This note was generated with MONOCO dictation software. It may contain incorrect words, spelling, and punctuation that were not noted in review of the chart prior to signing ED Disposition - Plan for ED Patient: Chief Complaint: Lower Extremity Injury Referrals: French Pimentel MD [Primary Care Provider] - What to do if you have Problems For any increased pain, shortness of breath, bleeding, nausea or vomiting, chest pain, or any unexpected problems, contact your Primary Care Provider. Call [facility] ([phone]) or report to the closest Emergency Room. Call 911 if necessary. 04/08/18 4659 <Electronically signed by Kailash Bowden MD> Date Kailash Bowden MD Cosigner Signature (If Indicated): Date CC: French Pimentel MD PACEMAKER CHECK Observed: 04/07/2018 Status: F Source: [place] 6:58 AM [facility] REPOSITORY [facility] [address] [place] [address] Pacemaker Check Date of Service: 04/05/181752 MR#: [id number] Acct: [id number] Name: PEG BAEZ Rep #: [id number] : 1935 From: Elidia Pacheco Age/Sex: 82/M Location: [facility] Status: Signed Billing Codes PM Device Codes: PM Dev Interrogate (Remot 04/05/181757 <Electronically signed by Elidia Pacheco > Date Elidia Pacheco 04/07/1858<Electronically signed by Loyd Plascencia MD> Cosigner Signature: Date (if applicable) Loyd Plascencia MD CC: PROTIME W/INR Collected: 03/31/2018 Status: F Source: [place] 8:32 AM [facility] REPOSITORY TYPE CODE TESTS RESULT OUT OF REFERENCE UNITS RANGE LAB L9200.1001 11.9-14.4 SEC High PROTIME ISTAT 31.6 Result Comment: Reference Range 11.9 - 14.4 LAB L9200.2000 Normal INR ISTAT 2.80 Result Comment: Critical Value > 3.5 Performed By: #### [id number] #### [facility] Point of Care [address] [place] [address] PROTIME W/INR Collected: 03/23/2018 Status: F Source: [place] 8:18 AM [facility] REPOSITORY TYPE CODE TESTS RESULT OUT OF REFERENCE UNITS RANGE LAB L9200.1001 11.9-14.4 SEC High PROTIME ISTAT 36.9 Result Comment: Reference Range 11.9 - 14.4 LAB L9200.2000 Normal INR ISTAT 3.20 Result Comment: Critical Value > 3.5 Performed By: #### [id number] #### [facility] Point of Care [address] [place], [place] [address] PROTIME W/INR Collected: 02/23/2018 Status: F Source: [place] 8:22 AM [facility] REPOSITORY TYPE CODE TESTS RESULT OUT OF REFERENCE UNITS RANGE LAB L9200.1001 11.9-14.4 SEC High PROTIME ISTAT 31.1 Result Comment: Reference Range 11.9 - 14.4 LAB L9200.2000 Normal INR ISTAT 2.70 Result Comment: Critical Value > 3.5 Performed By: #### [id number] #### [facility] Point of Care [address] [place], [place] [address] PROTIME W/INR Collected: 01/24/2018 Status: F Source: [place] 8:15 AM [facility] REPOSITORY TYPE CODE TESTS RESULT OUT OF REFERENCE UNITS RANGE LAB L9200.1001 11.9-14.4 SEC High PROTIME ISTAT 28.5 Result Comment: Reference Range 11.9 - 14.4 LAB L9200.1999 Normal INR ISTAT 2.50 Result Comment: Critical Value > 3.5 Performed By: #### [id number] #### [facility] Point of Care [address] [place] [address] PROGRESS Observed: 01/18/2018 Status: COMPLETED Source: [place] 8:[address] [facility] REPOSITORY HNO ID: [id number] Author: Ian Hall (Pa-C) Rivas Service: (none) Author Type: Physician Electrical Wiring Lineman Type: Progress Notes Filed: 01/18/2018 9:40 AM Note Text: 82 year old male with c/o here for 3 months follow 1. CRF: stable on last lab. Recheck in 3 months. 2. CHF/ SSS/ pacemaker/ CAD followed by Dr. Plascencia. No chest pain, syncopal sx. Legs about the same with swelling. Has picked up 4lbs. Hasn't used prn lasix as dicussed. Last 2 Encounter Wt Readings: Date: Wt: 01/18/2018 107.5 kg (237 lb) 12/13/2017 105.7 kg (233 lb) 3. Pain/ lumbar stenosis: managed with two vicodin. If stops feet burn terribly. Can walk a few blocks and then needs to rest. Chronic low level back pain, worse with claudication. 4. BPH: nocturia x 1. Streams stops and goes. 5. Sleep managed well with trazedone. 6. GERD: no break through on omeprazole 7. Rash: completely resolved finally. 8. HTN: controlled on Cozaar. No complications with med. Last 3 Encounter BP Readings: Date: BP: 01/18/2018 138/70 12/13/2017 136/70 11/22/2017 130/72 9. HLD: taking Zocor. Trevon muscle aches, diarrhea. Watches diet. Component Latest Ref Rng AND Units 11/05/2016 04/28/2017 10/13/2017 Triglyceride <150 mg/dL 182 (H) 177 (H) 146 Cholesterol, Total <200 mg/dL 158 199 199 HDL Cholesterol >39 mg/dL 32 (L) 45 (L) 50 VLDL Cholesterol <30 mg/dL 36 35 29 LDL Cholesterol <100 mg/dL 90 119 120 (H) Fasting Time hrs 12 12 12 TC:HDL Ratio <5.10 4.94 4.42 3.98 LDL:HDL Ratio <2.54 2.81 2.64 2.40 Non HDL Cholesterol <130 mg/dL 126 154 149 (H) HISTORIES FAMILY HISTORY Problem Relation Age of Onset - Cancer Mother Lung cancer - Heart Father - Diabetes Brother 2 HALF BROTHERS - Coronary Artery Disease Brother CABG PAST MEDICAL HISTORY Diagnosis Date - Diaphragmatic hernia without mention of obstruction or gangrene Hiatal hernia - Diarrhea - Esophageal reflux - Generalized osteoarthrosis, unspecified site - Internal hemorrhoids without mention of complication - Other and unspecified disc disorder of unspecified region Intervertebral disc disorders - Other and unspecified hyperlipidemia - Personal history of malignant neoplasm of skin 01/17/2011 - Prediabetes Diabetes mellitus - Unspecified cardiovascular disease - 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 PAST SURGICAL HISTORY Procedure Laterality Date - COLONOSCOP W/ OR W/O BRSH SPEC 06/01/2013 Colonoscopy - COLONOSCOPY W/BX 02/22/06 - EGD W/O OR W/BRUSH/WASH 02/05/03 EGD - PAST SURGICAL HISTORY OF 1990 left foot surgery - PAST SURGICAL HISTORY OF bilateral mastoids - as an - REMV CATARACT EXTRACAP,INSERT LENS 2012 Cataract Extraction with PC IOL - REMV CATARACT EXTRACAP,INSERT LENS 2012 Cataract Extraction with PC IOL Social History Marital status: Spouse name: Years of education: Number of children: 2 Occupational History Occupation Employer Comment [employer] Social History Main Topics Smoking status: Former Smoker Packs/day: 0.00 Years: 0.00 Smokeless tobacco: Never Used Comment: quit in 1988 Alcohol use: Yes Comment: socially Drug use: No ACTIVE PROBLEM LIST Allergic Rhinitis, Cause Unspecified Coronary Atherosclerosis Esophageal Reflux Mixed Hyperlipidemia Essential Hypertension, Benign Osteoarthrosis, Generalized, Involving Multiple Sites Diaphragmatic Hernia Without Mention of Obstruction Or Gangrene Insomnia, Unspecified B12 Deficiency Anemia Back Pain Sciatica 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) Lumbar Spondylosis Lumbar Stenosis Bph (Benign Prostatic Hyperplasia) Ckd (Chronic Kidney Disease) Stage 3, Gfr 30-59 Ml/Min ([facility]) Bradycardia Trifascicular Bundle Branch Block L-S Radiculopathy Psvt (Paroxysmal Supraventricular Tachycardia) ([facility]) Dependent Edema Chronic Anticoagulation Paroxysmal Atrial Fibrillation ([facility]) Status Post Placement of Implantable Loop Recorder Sick Sinus Syndrome (Hcc) [place] (Myocardial Infarction) Acute Diastolic Chf (Congestive Heart Failure) (Hcc) Complete Heart Block (Hcc) Prediabetes Pacemaker Current Outpatient Prescriptions: hydrocortisone (PROCTOSOL HC) 2.5 % rectal cream Apply one application to hemorrhoids twice a day. Disp: 1 Tube Rfl: 3 losartan (COZAAR) 100 mg tablet Take 1 tablet by mouth once daily. Disp: 30 tablet Rfl: 11 omeprazole (PRILOSEC) 20 mg capsule Take 1 capsule by mouth once daily. Disp: 90 capsule Rfl: 3 bumetanide (BUMEX) 2 mg tablet Take 0.5 tablets by mouth once daily. May take whole pill x 2-3 days prn weight gain with increased swelling Disp: 30 tablet Rfl: 6 traZODone (DESYREL) 50 mg tablet TAKE 1 TABLET BY MOUTH DAILY AT BEDTIME NEEDED FOR SLEEP. Disp: 90 tablet Rfl: 3 triamcinolone acetonide (KENALOG) 0.1 % cream Apply 1 application to affected area three times daily. Apply sparingly to area for rash/itching. Disp: 60 g Rfl: 2 clotrimazole-betamethasone (LOTRISONE) cream Apply 1 application to affected area twice daily. UNTIL CLEAR FOR UP TO 2-3 WEEKS Disp: 15 g Rfl: 1 simvastatin (ZOCOR) 20 mg tablet Take 1 tablet by mouth daily at bedtime. Disp: 90 tablet Rfl: 3 warfarin (COUMADIN) 5 mg tablet Take 0.5 tablets by mouth once daily. Disp: 30 tablet Rfl: 6 diphenhydrAMINE (BENADRYL) 25 mg capsule Take 1 capsule by mouth every 6 hours as needed. Disp: Rfl: 0 Cyanocobalamin 1,000 mcg subl Dissolve 1 tablet under the tongue once daily. One tablet under tongue daily. Disp: Rfl: 0 polyethylene glycol, bulk, 100 % powd 17 g once daily. Disp: 527 g Rfl: 6 HYDROcodone-acetaminophen (NORCO) 5-325 mg per tablet Take 1 tablet by mouth twice daily as needed for up to 30 days. Disp: 60 tablet Rfl: 0 HYDROcodone-acetaminophen (NORCO) 5-325 mg per tablet Take 1 tablet by mouth twice daily as needed for up to 30 days.Earliest Fill Date: 09/18/17 Disp: 180 tablet Rfl: 0 No current facility-administered medications for this visit. DTAP,TDAP,TD(1 - Tdap) due on 05/07/2016 DILATED RETINAL EXAM due on 11/04/2017 INFLUENZA(1) due on 02/18/2018 EXAM: BP 138/70 Pulse 76 Temp 36.9 ?C (98.4 ?F) (Tympanic) Resp 16 Wt 107.5 kg (237 lb) BMI 30.43 kg/m? Pleasant older man in no acute distress. Alert and oriented all spheres. Normal affect and cognition. Speech normal. No deficits to learning or comprehension. Skin warm, dry, pink to lips and nailbeds. Normal turgor. Respirations regular and unlabored. HEENT WNL. TM's clear. Nose and oropharynx free from injection or lesion. No cervical lymph nodes. Thyroid non-tender, no masses Chest CTA, no dullness. HRRR without murmur or gallop. Extrem: no clubbing, cyanosis. 3/4+ edema. Extremities are warm and pink with prompt capillary refill. ASSESSMENT/PLAN: 1. Atherosclerosis of knik coronary artery of knik heart without angina pectoris - ICD9: 414.01, ICD10: I25.10 (primary diagnosis) Asymptomatic. Followed by [facility]. 2. Post-traumatic osteoarthritis of left foot - ICD9: 715.27, ICD10: M19.172 No diversion - HYDROCODONE 5 MG-ACETAMINOPHEN 325 MG TABLET - HYDROCODONE 5 MG-ACETAMINOPHEN 325 MG TABLET - HYDROCODONE 5 MG-ACETAMINOPHEN 325 MG TABLET 3. Paroxysmal atrial fibrillation (HCC) - ICD9: 427.31, ICD10: I48.0 Stable. Regular. 4. Mixed hyperlipidemia - ICD9: 272.2, ICD10: E78.2 - good control - Continue current medication. 5. Essential hypertension, benign - ICD9: 401.1, ICD10: I10 - good control - Continue current medication(s) - Recommended regular aerobic exercise. - Recommend home blood pressure monitoring, to bring results in on next visit - Goal of BP <130/80 6. Anemia due to vitamin B12 deficiency, unspecified B12 deficiency type - ICD9: 281.1, ICD10: D51.9 Recheck cbc,B 12 levels 7. CKD (chronic kidney disease) stage 3, GFR 30-59 ml/min (HCC) - ICD9: 585.3, ICD10: N18.3 Stable. Has outstanding labs 8. Chronic anticoagulation - ICD9: V58.61, ICD10: Z79.01 Therapeutic. Managed by [facility]. 9. Prediabetes - ICD9: 790.29, ICD10: R73.03 Outstanding lab 10. Pacemaker - ICD9: V45.01, ICD10: Z95.0 Stable. Pacer checks through [facility] 11. Lumbar facet arthropathy (HCC) - ICD9: 721.3, ICD10: M46.96 Pain managed with Faxon without increased use. Follow. F/u 3 months Ian Hathaway PA-C CNOV Observed: 01/18/2018 Status: COMPLETED Source: [place] 8:20 AM [facility] REPOSITORY [facility] PEG BAEZ ([id number]) 1935 M NFR Date Time Provider Department 01/18/18 8:20 AM Ian HATHAWAY) [facility] During your visit today, we recorded the following information about you: Temperature Pulse Respiration Blood pressure 98.4 degrees 76/minute 16/minute 138/70 Weight 107.5 kg Ian Hathaway PA-C 01/18/2018 9:40 AM Signed 82 year old male with c/o here for 3 months follow 1. CRF: stable on last lab. Recheck in 3 months. 2. CHF/ SSS/ pacemaker/ CAD followed by Dr. Plascencia. No chest pain, syncopal sx. Legs about the same with swelling. Has picked up 4lbs. Hasn't used prn lasix as dicussed. Last 2 Encounter Wt Readings: Date: Wt: 01/18/2018 107.5 kg (237 lb) 12/13/2017 105.7 kg (233 lb) 3. Pain/ lumbar stenosis: managed with two vicodin. If stops feet burn terribly. Can walk a few blocks and then needs to rest. Chronic low level back pain, worse with claudication. 4. BPH: nocturia x 1. Streams stops and goes. 5. Sleep managed well with trazedone. 6. GERD: no break through on omeprazole 7. Rash: completely resolved finally. 8. HTN: controlled on Cozaar. No complications with med. Last 3 Encounter BP Readings: Date: BP: 01/18/2018 138/70 12/13/2017 136/70 11/22/2017 130/72 9. HLD: taking Zocor. Trevon muscle aches, diarrhea. Watches diet. Component Latest Ref Rng AND Units 11/05/2016 04/28/2017 10/13/2017 Triglyceride <150 mg/dL 182 (H) 177 (H) 146 Cholesterol, Total <200 mg/dL 158 199 199 HDL Cholesterol >39 mg/dL 32 (L) 45 (L) 50 VLDL Cholesterol <30 mg/dL 36 35 29 LDL Cholesterol <100 mg/dL 90 119 120 (H) Fasting Time hrs 12 12 12 TC:HDL Ratio <5.10 4.94 4.42 3.98 LDL:HDL Ratio <2.54 2.81 2.64 2.40 Non HDL Cholesterol <130 mg/dL 126 154 149 (H) HISTORIES FAMILY HISTORY Problem Relation Age of Onset - Cancer Mother Lung cancer - Heart Father - Diabetes Brother 2 HALF BROTHERS - Coronary Artery Disease Brother CABG PAST MEDICAL HISTORY Diagnosis Date - Diaphragmatic hernia without mention of obstruction or gangrene Hiatal hernia - Diarrhea - Esophageal reflux - Generalized osteoarthrosis, unspecified site - Internal hemorrhoids without mention of complication - Other and unspecified disc disorder of unspecified region Intervertebral disc disorders - Other and unspecified hyperlipidemia - Personal history of malignant neoplasm of skin 01/17/2011 - Prediabetes Diabetes mellitus - Unspecified cardiovascular disease - 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 PAST SURGICAL HISTORY Procedure Laterality Date - [facility] Colonoscopy - COLONOSCOPY W/BX 02/22/06 - EGD W/O OR W/BRUSH/WASH 02/05/03 EGD - PAST SURGICAL HISTORY OF 1990 left foot surgery - PAST SURGICAL HISTORY OF bilateral mastoids - as an infant - REMV CATARACT EXTRACAP,INSERT LENS 2012 Cataract Extraction with PC IOL - REMV CATARACT EXTRACAP,INSERT LENS 2012 Cataract Extraction with PC IOL Social History Marital status: Spouse name: Years of education: Number of children: 2 Occupational History Occupation Employer Comment [employer] Social History Main Topics Smoking status: Former Smoker Packs/day: 0.00 Years: 0.00 Smokeless tobacco: Never Used Comment: quit in 1988 Alcohol use: Yes Comment: socially Drug use: No ACTIVE PROBLEM LIST Allergic Rhinitis, Cause Unspecified Coronary Atherosclerosis Esophageal Reflux Mixed Hyperlipidemia Essential Hypertension, Benign Osteoarthrosis, Generalized, Involving Multiple Sites Diaphragmatic Hernia Without Mention of Obstruction Or Gangrene Insomnia, Unspecified B12 Deficiency Anemia Back Pain Sciatica Lumbar Disc Displacement Without Myelopathy Lumbar Facet Arthropathy ([facility]) Lumbar Spondylosis Lumbar Stenosis Bph (Benign Prostatic Hyperplasia) Ckd (Chronic Kidney Disease) Stage 3, Gfr 30-59 Ml/Min ([facility]) Bradycardia Trifascicular Bundle Branch Block L-S Radiculopathy Psvt (Paroxysmal Supraventricular Tachycardia) ([facility]) Dependent Edema Chronic Anticoagulation Paroxysmal Atrial Fibrillation ([facility]) Status Post Placement of Implantable Loop Recorder Sick Sinus Syndrome ([facility]) [place] (Myocardial Infarction) Acute Diastolic Chf (Congestive Heart Failure) ([facility]) Complete Heart Block ([facility]) Prediabetes Pacemaker Current Outpatient Prescriptions: hydrocortisone (PROCTOSOL HC) 2.5 % rectal cream Apply one application to hemorrhoids twice a day. Disp: 1 Tube Rfl: 3 losartan (COZAAR) 100 mg tablet Take 1 tablet by mouth once daily. Disp: 30 tablet Rfl: 11 omeprazole (PRILOSEC) 20 mg capsule Take 1 capsule by mouth once daily. Disp: 90 capsule Rfl: 3 bumetanide (BUMEX) 2 mg tablet Take 0.5 tablets by mouth once daily. May take whole pill x 2-3 days prn weight gain with increased swelling Disp: 30 tablet Rfl: 6 traZODone (DESYREL) 50 mg tablet TAKE 1 TABLET BY MOUTH DAILY AT BEDTIME NEEDED FOR SLEEP. Disp: 90 tablet Rfl: 3 triamcinolone acetonide (KENALOG) 0.1 % cream Apply 1 application to affected area three times daily. Apply sparingly to area for rash/itching. Disp: 60 g Rfl: 2 clotrimazole-betamethasone (LOTRISONE) cream Apply 1 application to affected area twice daily. UNTIL CLEAR FOR UP TO 2-3 WEEKS Disp: 15 g Rfl: 1 simvastatin (ZOCOR) 20 mg tablet Take 1 tablet by mouth daily at bedtime. Disp: 90 tablet Rfl: 3 warfarin (COUMADIN) 5 mg tablet Take 0.5 tablets by mouth once daily. Disp: 30 tablet Rfl: 6 diphenhydrAMINE (BENADRYL) 25 mg capsule Take 1 capsule by mouth every 6 hours as needed. Disp: Rfl: 0 Cyanocobalamin 1,000 mcg subl Dissolve 1 tablet under the tongue once daily. One tablet under tongue daily. Disp: Rfl: 0 polyethylene glycol, bulk, 100 % powd 17 g once daily. Disp: 527 g Rfl: 6 HYDROcodone-acetaminophen (NORCO) 5-325 mg per tablet Take 1 tablet by mouth twice daily as needed for up to 30 days. Disp: 60 tablet Rfl: 0 HYDROcodone-acetaminophen (NORCO) 5-325 mg per tablet Take 1 tablet by mouth twice daily as needed for up to 30 days.Earliest Fill Date: 09/18/17 Disp: 180 tablet Rfl: 0 No current facility-administered medications for this visit. DTAP,TDAP,TD(1 - Tdap) due on 05/07/2016 DILATED RETINAL EXAM due on 11/04/2017 INFLUENZA(1) due on 02/18/2018 EXAM: BP 138/70 Pulse 76 Temp 36.9 ?C (98.4 ?F) (Tympanic) Resp 16 Wt 107.5 kg (237 lb) BMI 30.43 kg/m? Pleasant older man in no acute distress. Alert and oriented all spheres. Normal affect and cognition. Speech normal. No deficits to learning or comprehension. Skin warm, dry, pink to lips and nailbeds. Normal turgor. Respirations regular and unlabored. HEENT WNL. TM's clear. Nose and oropharynx free from injection or lesion. No cervical lymph nodes. Thyroid non-tender, no masses Chest CTA, no dullness. HRRR without murmur or gallop. Extrem: no clubbing, cyanosis. 3/4+ edema. Extremities are warm and pink with prompt capillary refill. ASSESSMENT/PLAN: 1. Atherosclerosis of knik coronary artery of knik heart without angina pectoris - ICD9: 414.01, ICD10: I25.10 (primary diagnosis) Asymptomatic. Followed by [facility]. 2. Post-traumatic osteoarthritis of left foot - ICD9: 715.27, ICD10: M19.172 No diversion - HYDROCODONE 5 MG-ACETAMINOPHEN 325 MG TABLET - HYDROCODONE 5 MG-ACETAMINOPHEN 325 MG TABLET - HYDROCODONE 5 MG-ACETAMINOPHEN 325 MG TABLET 3. Paroxysmal atrial fibrillation (HCC) - ICD9: 427.31, ICD10: I48.0 Stable. Regular. 4. Mixed hyperlipidemia - ICD9: 272.2, ICD10: E78.2 - good control - Continue current medication. 5. Essential hypertension, benign - ICD9: 401.1, ICD10: I10 - good control - Continue current medication(s) - Recommended regular aerobic exercise. - Recommend home blood pressure monitoring, to bring results in on next visit - Goal of BP <130/80 6. Anemia due to vitamin B12 deficiency, unspecified B12 deficiency type - ICD9: 281.1, ICD10: D51.9 Recheck cbc,B 12 levels 7. CKD (chronic kidney disease) stage 3, GFR 30-59 ml/min ([facility]) - ICD9: 585.3, ICD10: N18.3 Stable. Has outstanding labs 8. Chronic anticoagulation - ICD9: V58.61, ICD10: Z79.01 Therapeutic. Managed by [facility]. 9. Prediabetes - ICD9: 790.29, ICD10: R73.03 Outstanding lab 10. Pacemaker - ICD9: V45.01, ICD10: Z95.0 Stable. Pacer checks through [facility] 11. Lumbar facet arthropathy (HCC) - ICD9: 721.3, ICD10: M46.96 Pain managed with Faxon without increased use. Follow. F/u 3 months M Anisa Hathaway PA-C Referring Provider: SELF [200] Allergies As of Date: 01/18/2018 Noted Allergy Reaction CALAN (VERAPAMIL HCL) 05/18/2005 DOXAZOSIN 08/18/2007 2 - Rash FLOMAX (TAMSULOSIN HCL) 05/18/2005 HCTZ (HYDROCHLOROTHIAZIDE) 07/27/2007 2 - Rash INDERAL (PROPRANOLOL HCL) 05/18/2005 LIPITOR (ATORVASTATIN CALCIUM) 05/18/2005 LISINOPRIL 10/17/2017 2 - Rash NIASPAN (NIACIN (ANTIHYPERLIPIDEM*05/18/2005 NORVASC (AMLODIPINE BESYLATE) 11/30/2017 5 - Intolerance Comments: Possible rash: off for evaluation to see if improves November 30, 2017 QUININE 05/18/2005 Date Reviewed: 01/18/2018 Reviewed by: Shaina Bansal LPN - Fully Assessed Reason for Visit: F/U 3 Month [443] Cmt: lab results Primary Visit Diagnosis:Atherosclerosis of knik coronary artery of knik heart without angina pectoris [I25.10] Other Visit Diagnoses:Post-traumatic osteoarthritis of left foot [M19.172] Paroxysmal atrial fibrillation (HCC) [I48.0] Mixed hyperlipidemia [E78.2] Essential hypertension, benign [I10] Anemia due to vitamin B12 deficiency, unspecified B12 deficiency type [D51.9] CKD (chronic kidney disease) stage 3, GFR 30-59 ml/min (HCC) [N18.3] Chronic anticoagulation [Z79.01] Prediabetes [R73.03] Pacemaker [Z95.0] Lumbar facet arthropathy (HCC) [M46.96] Order(s):[START ON 03/19/2018] HYDROcodone-acetaminophen (NORCO) 5-325 mg per tabletTake 1 tablet by mouth twice daily as needed for up to 30 days. Earliest Fill Date: 03/19/18Disp: 60 tabletRfl: 0 [START ON 02/17/2018] HYDROcodone-acetaminophen (NORCO) 5-325 mg per tabletTake 1 tablet by mouth twice daily as needed for up to 30 days. Earliest Fill Date: 02/17/18Disp: 60 tabletRfl: 0 HYDROcodone-acetaminophen (NORCO) 5-325 mg per tabletTake 1 tablet by mouth twice daily as needed for up to 30 days. Earliest Fill Date: 01/18/18Disp: 60 tabletRfl: 0 CBC [SQCBC] Order #: [id number] FUTURE VITAMIN B12 BLOOD [SQB12] Order #: [id number] FUTURE Prescriptions as of 01/18/2018 Sig: HYDROCORTISONE 2.5 % TOPICAL * Apply one application to hemo* LOSARTAN 100 MG TABLET Take 1 tablet by mouth once d* OMEPRAZOLE 20 MG CAPSULE,FRANCA* Take 1 capsule by mouth once * BUMETANIDE 2 MG TABLET Take 0.5 tablets by mouth onc* TRAZODONE 50 MG TABLET TAKE 1 TABLET BY MOUTH DAILY* TRIAMCINOLONE ACETONIDE 0.1 %* Apply 1 application to affect* CLOTRIMAZOLE-BETAMETHASONE 1 * Apply 1 application to affect* SIMVASTATIN 20 MG TABLET Take 1 tablet by mouth daily * WARFARIN 5 MG TABLET Take 0.5 tablets by mouth onc* DIPHENHYDRAMINE 25 MG CAPSULE Take 1 capsule by mouth every* CYANOCOBALAMIN (VIT B-12) 1,0* Dissolve 1 tablet under the t* POLYETHYLENE GLYCOL (BULK) 10* 17 g once daily. HYDROCODONE 5 MG-ACETAMINOPHE* Take 1 tablet by mouth twice * HYDROCODONE 5 MG-ACETAMINOPHE* Take 1 tablet by mouth twice * HYDROCODONE 5 MG-ACETAMINOPHE* Take 1 tablet by mouth twice * HYDROCODONE 5 MG-ACETAMINOPHE* Take 1 tablet by mouth twice * Problem List As Of Date 01/18/2018 Noted Resolved Other specified disorder of penis [N48.89] INVALID FOR*11/12/2015 ALLERGIC RHINITIS NOS [J30.9] INVALID FOR* Coronary atherosclerosis [I25.10] INVALID FOR* ESOPHAGEAL REFLUX [K21.9] INVALID FOR* Type II or unspecified type diabetes mellitus w*INVALID FOR*11/14/2013 MIXED HYPERLIPIDEMIA [E78.2] INVALID FOR* BENIGN HYPERTENSION [I10] INVALID FOR* Other and unspecified hyperlipidemia [E78.5] 11/12/2015 Osteoarthrosis, generalized, involving multiple* Unspecified cardiovascular disease [I25.10] 11/12/2015 DIAPHRAGMATIC HERNIA [K44.9] More... Other and unspecified disc disorder of unspecif* 11/12/2015 More... 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] INVALID FOR*11/12/2015 Actinic skin damage [L57.8] INVALID FOR*11/12/2015 Solar Lentigines [L81.4] INVALID FOR*11/12/2015 Seborrheic Keratoses [L82.1] INVALID FOR*11/12/2015 Surgical Scars [L90.5] INVALID FOR*11/12/2015 Edema [R60.9] INVALID FOR*11/12/2015 Irritant contact dermatitis [L24.9] INVALID FOR*11/12/2015 Open wound(s) (multiple) of unspecified site(s)*INVALID FOR*08/29/2013 Postinflammatory skin changes: fading discolora*INVALID FOR*11/12/2015 Back pain [M54.9] INVALID FOR* Sciatica [M54.30] INVALID FOR* Lumbar disc displacement without myelopathy [M5*INVALID FOR* Lumbar facet arthropathy [M46.96] INVALID FOR* Lumbar spondylosis [M47.816] INVALID FOR* Lumbar stenosis [M48.061] INVALID FOR* Balanitis [N48.1] INVALID FOR*11/12/2015 Eczema intertrigo [L30.4] INVALID FOR*11/12/2015 Eczematous dermatitis [L30.9] INVALID FOR*11/12/2015 Fixed drug eruption [L27.1] INVALID FOR*11/12/2015 BPH (benign prostatic hyperplasia) [N40.0] INVALID FOR* CKD (chronic kidney disease) stage 3, GFR 30-59*INVALID FOR* Bradycardia [R00.1] INVALID FOR* 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 Paroxysmal atrial fibrillation (HCC) [I48.0] INVALID FOR* Status post placement of implantable loop recor*INVALID FOR* Sick sinus syndrome (HCC) [I49.5] INVALID FOR* Old WV (myocardial infarction) [I25.2] INVALID FOR* Acute diastolic CHF (congestive heart failure) *INVALID FOR* Complete heart block (HCC) [I44.2] INVALID FOR* More... Prediabetes [R73.03] INVALID FOR* Pacemaker [Z95.0] INVALID FOR* More... Prescriptions ordered this encounter Disp Refills Start End HYDROCODONE 5 MG-ACETAMINOPHEN 325 M* 60 t* 0 03/19/2018 04/18/2018 Class: Print RX Route: ORAL Sig: Take 1 tablet by mouth twice daily as needed for up to 30 days. Earliest Fill Date: 03/19/18 HYDROCODONE 5 MG-ACETAMINOPHEN 325 M* 60 t* 0 02/17/2018 03/19/2018 Class: Print RX Route: ORAL Sig: Take 1 tablet by mouth twice daily as needed for up to 30 days. Earliest Fill Date: 02/17/18 HYDROCODONE 5 MG-ACETAMINOPHEN 325 M* 60 t* 0 01/18/2018 02/17/2018 Class: Print RX Route: ORAL Sig: Take 1 tablet by mouth twice daily as needed for up to 30 days. Earliest Fill Date: 01/18/18 Medications Discontinued During This Encounter HYDROcodone-acetaminophen (NORCO) 5-* 60 t* 0 12/16/2017 01/18/2018 Class: Print RX Route: ORAL Sig: Take 1 tablet by mouth twice daily as needed for up to 30 days. Disc: Reason for discontinue is not on file. Disposition: Return in about 3 months (around 04/20/2018). Follow-up and Disposition History Recorded Encounter Status:Closed by Ian HATHAWAY PA-C on 01/18/18 BASIC METABOLIC PANL Collected: 01/13/2018 Status: F Source: [place] 7:33 AM [facility] REPOSITORY TYPE CODE TESTS RESULT OUT OF REFERENCE UNITS RANGE LAB GLU 74-99 mg/dL High Glucose 113 Result Comment: The [place] Diabetes Association (ADA) provides guidance for cutoff values for fasting glucose and random glucose. The ADA defines fasting as no caloric intake for at least 8 hours. Fas ting plasma glucose results between 100 to 125 mg/dL indicate increased risk for diabetes (prediabetes). Fasting plasma glucose results greater than or equal to 126 mg/dL meet the criteria for diagnosis of diabetes. In the absence of unequivocal hyperglycemia, results should be confirmed by repeat testing. In a patient with classic symptoms of hyperglycemia or hyperglycemic crisis, random plasma glucose results greater than or equal to 200 mg/dL meet the criteria for diagnosis of diabetes. Reference: Standards of Medical Care in Diabetes 2016, [place] Diabetes Association. Diabetes Care. 2016.39(Suppl 1). LAB BUN 9-24 mg/dL BUN 24 LAB CRET 0.73-1.22 mg/dL Creatinine High 1.89 LAB NA 136-144 mmol/L Sodium 141 LAB K 3.7-5.1 mmol/L Potassium 4.6 LAB CL 97-105 mmol/L Chloride 102 LAB CO2 22-30 mmol/L CO2 25 LAB AGAP 9-18 mmol/L Anion Gap 14 LAB CA 8.5-10.2 mg/dL Calcium, Total 8.9 LAB GFRAA eGFR- Amer. 41 LAB GFRNAA . eGFR-All Other Races 34 Result Comment: eGFR (Estimated GFR) Units of measure: mL/min/1.73 meters squared eGFR is derived from the reexpressed MDRD Study equation using the following parameters: serum creatinine, age, gender and race. The creatinine assay has been calibrated to be traceable to IDMS. An eGFR <60 mL/min/1.73m2 for >3 months is consistent with chronic kidney disease. Refer to KDOQI guidelines for clinical interpretation. In patients with unstable renal function, e.g. those with acute kidney injury, the eGFR may not accurately reflect actual GFR. Performed By: #### BMP #### [facility] [address] [place], [place] [address] PACEMAKER CHECK Observed: 12/30/2017 Status: F Source: [place] 4:03 [facility] [place] [place] REPOSITORY [facility] [address] [place] [address] Pacemaker Check Date of Service: 12/27/172008 MR#: [id number] Acct: [id number] Name: PEG BAEZ Rep #: [id number] : 1935 From: Elidia Pacheco Age/Sex: 82/M Location: [facility] [place] Status: Signed Billing Codes PM Device Codes: PM Dev Interrogate (Remot 12/27/172010 <Electronically signed by Elidia Pacheco > Date Elidia Pacheco 12/30/17 1603<Electronically signed by Loyd Plascencia MD> Russell Signature: Date (if applicable) Loyd Plascencia MD CC: PROTIME W/INR Collected: 12/27/2017 Status: F Source: [place] 8:21 AM [facility] REPOSITORY TYPE CODE TESTS RESULT OUT OF REFERENCE UNITS RANGE LAB L9200.1001 11.9-14.4 SEC High PROTIME ISTAT 24.2 Result Comment: Reference Range 11.9 - 14.4 LAB L9200.2000 Normal INR ISTAT 2.10 Result Comment: Critical Value > 3.5 Performed By: #### [id number] #### [facility] [place] [address] CNOV Observed: 12/13/2017 Status: COMPLETED Source: [place] 8:40 AM [facility] REPOSITORY Office Visit (FAMPWS) PEG BAEZ ([id number]) 1935 M NFR Date Time Provider Department 12/13/17 8:40 AM CARLY DOBSON ([facility]) FAMPWS During your visit today, we recorded the following information about you: Pulse Respiration Blood pressure Weight 74/minute 12/minute 136/70 105.7 kg Aubree Smith [facility] 12/13/2017 8:31 AM Signed Manual Readin/70 Pulse: 74 Reason for blood pressure check - Medication adjustment stopped taking amlodipine 2 weeks ago Patient is: Taking medication as prescribed Yes Took medication today Yes Experiencing side effects No Patient presents today alert and oriented Pt has been identified by name and birthdate: Yes Allergies reviewed: Yes Latex allergy: no. Medication - prescribed and OTC reviewed and updated: Yes Do you need any prescription refills prior to your next visit: yes Health Maintenance: Reviewed and up to date Referring Provider: SELF [200] Allergies As of Date: 12/13/2017 Noted Allergy Reaction CALAN (VERAPAMIL HCL) 05/18/2005 DOXAZOSIN 08/18/2007 2 - Rash FLOMAX (TAMSULOSIN HCL) 05/18/2005 HCTZ (HYDROCHLOROTHIAZIDE) 07/27/2007 2 - Rash INDERAL (PROPRANOLOL HCL) 05/18/2005 LIPITOR (ATORVASTATIN CALCIUM) 05/18/2005 LISINOPRIL 10/17/2017 2 - Rash NIASPAN (NIACIN (ANTIHYPERLIPIDEM*05/18/2005 NORVASC (AMLODIPINE BESYLATE) 11/30/2017 5 - Intolerance Comments: Possible rash: off for evaluation to see if improves November 30, 2017 QUININE 05/18/2005 Date Reviewed: 12/13/2017 Reviewed by: Aubree Smith Certified Driver Examiner - Fully Assessed Reason for Visit: Blood Pressure [15] Primary Visit Diagnosis:Essential hypertension, benign [I10] Other Visit Diagnosis:External hemorrhoid [K64.4] Prescriptions as of 12/13/2017 Sig: LOSARTAN 100 MG TABLET Take 1 tablet by mouth once d* HYDROCODONE 5 MG-ACETAMINOPHE* Take 1 tablet by mouth twice * OMEPRAZOLE 20 MG CAPSULE,FRANCA* Take 1 capsule by mouth once * BUMETANIDE 2 MG TABLET Take 0.5 tablets by mouth onc* HYDROCODONE 5 MG-ACETAMINOPHE* Take 1 tablet by mouth twice * HYDROCODONE 5 MG-ACETAMINOPHE* Take 1 tablet by mouth twice * TRAZODONE 50 MG TABLET TAKE 1 TABLET BY MOUTH DAILY* TRIAMCINOLONE ACETONIDE 0.1 %* Apply 1 application to affect* HYDROCORTISONE 2.5 % TOPICAL * Apply one application to hemo* CLOTRIMAZOLE-BETAMETHASONE 1 * Apply 1 application to affect* HYDROCODONE 5 MG-ACETAMINOPHE* Take 1 tablet by mouth twice * HYDROCODONE 5 MG-ACETAMINOPHE* Take 1 tablet by mouth twice * SIMVASTATIN 20 MG TABLET Take 1 tablet by mouth daily * WARFARIN 5 MG TABLET Take 0.5 tablets by mouth onc* DIPHENHYDRAMINE 25 MG CAPSULE Take 1 capsule by mouth every* CYANOCOBALAMIN (VIT B-12) 1,0* Dissolve 1 tablet under the t* POLYETHYLENE GLYCOL (BULK) 10* 17 g once daily. Problem List As Of Date 12/13/2017 Noted Resolved Other specified disorder of penis [N48.89] INVALID FOR*11/12/2015 ALLERGIC RHINITIS NOS [J30.9] INVALID FOR* Coronary atherosclerosis [I25.10] INVALID FOR* ESOPHAGEAL REFLUX [K21.9] INVALID FOR* Type II or unspecified type diabetes mellitus w*INVALID FOR*11/14/2013 MIXED HYPERLIPIDEMIA [E78.2] INVALID FOR* BENIGN HYPERTENSION [I10] INVALID FOR* Other and unspecified hyperlipidemia [E78.5] 11/12/2015 Osteoarthrosis, generalized, involving multiple* Unspecified cardiovascular disease [I25.10] 11/12/2015 DIAPHRAGMATIC HERNIA [K44.9] More... Other and unspecified disc disorder of unspecif* 11/12/2015 More... 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] INVALID FOR*11/12/2015 Actinic skin damage [L57.8] INVALID FOR*11/12/2015 Solar Lentigines [L81.4] INVALID FOR*11/12/2015 Seborrheic Keratoses [L82.1] INVALID FOR*11/12/2015 Surgical Scars [L90.5] INVALID FOR*11/12/2015 Edema [R60.9] INVALID FOR*11/12/2015 Irritant contact dermatitis [L24.9] INVALID FOR*11/12/2015 Open wound(s) (multiple) of unspecified site(s)*INVALID FOR*08/29/2013 Postinflammatory skin changes: fading discolora*INVALID FOR*11/12/2015 Back pain [M54.9] INVALID FOR* Sciatica [M54.30] INVALID FOR* Lumbar disc displacement without myelopathy [M5*INVALID FOR* Lumbar facet arthropathy [M46.96] INVALID FOR* Lumbar spondylosis [M47.816] INVALID FOR* Lumbar stenosis [M48.061] INVALID FOR* Balanitis [N48.1] INVALID FOR*11/12/2015 Eczema intertrigo [L30.4] INVALID FOR*11/12/2015 Eczematous dermatitis [L30.9] INVALID FOR*11/12/2015 Fixed drug eruption [L27.1] INVALID FOR*11/12/2015 BPH (benign prostatic hyperplasia) [N40.0] INVALID FOR* CKD (chronic kidney disease) stage 3, GFR 30-59*INVALID FOR* Bradycardia [R00.1] INVALID FOR* 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 Paroxysmal atrial fibrillation (HCC) [I48.0] INVALID FOR* Status post placement of implantable loop recor*INVALID FOR* Sick sinus syndrome (HCC) [I49.5] INVALID FOR* Old WV (myocardial infarction) [I25.2] INVALID FOR* Acute diastolic CHF (congestive heart failure) *INVALID FOR* Complete heart block (HCC) [I44.2] INVALID FOR* More... Prediabetes [R73.03] INVALID FOR* Pacemaker [Z95.0] INVALID FOR* More... Encounter Status:Closed by AUBREE SMITH CMA on 12/13/17 PROGRESS Observed: 12/13/2017 Status: COMPLETED Source: [place] 8:24 AM [facility] REPOSITORY O ID: [id number] Author: Aubree Smith Cma Service: (none) Author Type: (none) Type: Progress Notes Filed: 12/13/2017 8:31 AM Note Text: Manual Readin/70 Pulse: 74 Reason for blood pressure check - Medication adjustment stopped taking amlodipine 2 weeks ago Patient is: Taking medication as prescribed Yes Took medication today Yes Experiencing side effects No Patient presents today alert and oriented Pt has been identified by name and birthdate: Yes Allergies reviewed: Yes Latex allergy: no. Medication - prescribed and OTC reviewed and updated: Yes Do you need any prescription refills prior to your next visit: yes Health Maintenance: Reviewed and up to date DOWNTIME REPORT Observed: 12/08/2017 Status: F Source: [place] 12:19 PM [facility] REPOSITORY [facility] Medical Records Department [address] [place] [address] Downtime Report MR#: [id number] Acct: [id number] Name: PEG BAEZ Rep #: [id number] : 1935 81 From: Tima Romero PCP: French Pimentel MD Status: REG RCR This patient was seen during an EMR downtime November 21, 2017 - November 28, 2017. This patient may have a combination of paper and electronic documentation or all paper documentation. All documentation is viewable within the e-chart portion of [facility] for each patient visit. PROTIME W/INR Collected: 11/25/2017 Status: F Source: [place] 8:53 AM [facility] REPOSITORY TYPE CODE TESTS RESULT OUT OF REFERENCE UNITS RANGE LAB L9200.1001 11.9-14.4 SEC High PROTIME ISTAT 29.5 Result Comment: Reference Range 11.9 - 14.4 LAB L9200.2000 Normal INR ISTAT 2.60 Result Comment: Critical Value > 3.5 Performed By: #### [id number] #### [facility] Point of Care [address] [place] [address] PROGRESS Observed: 11/22/2017 Status: COMPLETED Source: [place] 8:45 AM [facility] REPOSITORY HNO ID: [id number] Author: Ian Hall (PaElviC) Rivas Service: (none) Author Type: Physician Electrical Wiring Lineman Type: Progress Notes Filed: 11/22/2017 9:43 AM Note Text: 81 year old male with c/o 1. had trouble with bowels, used suppository 2 days ago and noted a nodule. Not painful. Has some spotting intermittently with hemorrhoids. No blood a month ago with blood toilet water. Nothing since then. 2. Left leg seems to be increasing in swelling. Concerned needs more diuretic. Weight down 4lbs. Used to resolve at night, now persistent. No SOB or cough. Left leg chronic pain unchanged. 3. Update on rash: no change. Dr. Patel took biopsy from rash on sacrum, pending results. HISTORIES FAMILY HISTORY Problem Relation Age of Onset - Cancer Mother Lung cancer - Heart Father - Diabetes Brother 2 HALF BROTHERS - Coronary Artery Disease Brother CABG PAST MEDICAL HISTORY Diagnosis Date - Diaphragmatic hernia without mention of obstruction or gangrene Hiatal hernia - Diarrhea - Esophageal reflux - Generalized osteoarthrosis, unspecified site - Internal hemorrhoids without mention of complication - Other and unspecified disc disorder of unspecified region Intervertebral disc disorders - Other and unspecified hyperlipidemia - Personal history of malignant neoplasm of skin 01/17/2011 - Prediabetes Diabetes mellitus - Unspecified cardiovascular disease - 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 PAST SURGICAL HISTORY Procedure Laterality Date - [facility]01[facility]2013 Colonoscopy - COLONOSCOPY W/BX 02/22/06 - EGD W/O OR W/BRUSH/WASH 02/05/03 EGD - PAST SURGICAL HISTORY OF 1990 left foot surgery - PAST SURGICAL HISTORY OF bilateral mastoids - as an - REMV CATARACT EXTRACAP,INSERT LENS 2012 Cataract Extraction with PC IOL - REMV CATARACT EXTRACAP,INSERT LENS 2012 Cataract Extraction with PC IOL Social History Marital status: Spouse name: Years of education: Number of children: 2 Occupational History Occupation Employer Comment [employer] Social History Main Topics Smoking status: Former Smoker Packs/day: 0.00 Years: 0.00 Smokeless tobacco: Never Used Comment: quit in 1988 Alcohol use: Yes Comment: socially Drug use: No ACTIVE PROBLEM LIST Allergic Rhinitis, Cause Unspecified Coronary Atherosclerosis Esophageal Reflux Mixed Hyperlipidemia Essential Hypertension, Benign Osteoarthrosis, Generalized, Involving Multiple Sites Diaphragmatic Hernia Without Mention of Obstruction Or Gangrene Insomnia, Unspecified B12 Deficiency Anemia Back Pain Sciatica Lumbar Disc Displacement Without Myelopathy Lumbar Facet Arthropathy ([facility]) Lumbar Spondylosis Lumbar Stenosis Bph (Benign Prostatic Hyperplasia) Ckd (Chronic Kidney Disease) Stage 3, Gfr 30-59 Ml/Min Bradycardia Trifascicular Bundle Branch Block L-S Radiculopathy Psvt (Paroxysmal Supraventricular Tachycardia) ([facility]) Dependent Edema Chronic Anticoagulation Paroxysmal Atrial Fibrillation ([facility]) Status Post Placement of Implantable Loop Recorder Sick Sinus Syndrome ([facility]) Old WV (Myocardial Infarction) Acute Diastolic Chf (Congestive Heart Failure) ([facility]) Complete Heart Block ([facility]) Prediabetes Pacemaker Current Outpatient Prescriptions: losartan (COZAAR) 100 mg tablet Take 1 tablet by mouth once daily. Disp: 30 tablet Rfl: 2 traZODone (DESYREL) 50 mg tablet TAKE 1 TABLET BY MOUTH DAILY AT BEDTIME NEEDED FOR SLEEP. Disp: 90 tablet Rfl: 3 bumetanide (BUMEX) 2 mg tablet Take 0.5 tablets by mouth once daily. Disp: 30 tablet Rfl: 6 triamcinolone acetonide (KENALOG) 0.1 % cream Apply 1 application to affected area three times daily. Apply sparingly to area for rash/itching. Disp: 60 g Rfl: 2 amLODIPine (NORVASC) 10 mg tablet Take 0.5 tablets by mouth once daily. Disp: 90 tablet Rfl: 3 hydrocortisone (PROCTOSOL HC) 2.5 % rectal cream Apply one application to hemorrhoids twice a day. Disp: 1 Tube Rfl: 3 clotrimazole-betamethasone (LOTRISONE) cream Apply 1 application to affected area twice daily. UNTIL CLEAR FOR UP TO 2-3 WEEKS Disp: 15 g Rfl: 1 simvastatin (ZOCOR) 20 mg tablet Take 1 tablet by mouth daily at bedtime. Disp: 90 tablet Rfl: 3 warfarin (COUMADIN) 5 mg tablet Take 0.5 tablets by mouth once daily. Disp: 30 tablet Rfl: 6 omeprazole (PRILOSEC) 20 mg capsule Take 1 capsule by mouth once daily. Disp: 90 capsule Rfl: 3 diphenhydrAMINE (BENADRYL) 25 mg capsule Take 1 capsule by mouth every 6 hours as needed. Disp: Rfl: 0 Cyanocobalamin 1,000 mcg subl Dissolve 1 tablet under the tongue once daily. One tablet under tongue daily. Disp: Rfl: 0 polyethylene glycol, bulk, 100 % powd 17 g once daily. Disp: 527 g Rfl: 6 HYDROcodone-acetaminophen (NORCO) 5-325 mg per tablet Take 1 tablet by mouth twice daily as needed for up to 30 days.Earliest Fill Date: 07/20/17 Disp: 180 tablet Rfl: 0 HYDROcodone-acetaminophen (NORCO) 5-325 mg per tablet Take 1 tablet by mouth twice daily as needed for up to 30 days.Earliest Fill Date: 08/19/17 Disp: 180 tablet Rfl: 0 HYDROcodone-acetaminophen (NORCO) 5-325 mg per tablet Take 1 tablet by mouth twice daily as needed for up to 30 days.Earliest Fill Date: 09/18/17 Disp: 180 tablet Rfl: 0 No current facility-administered medications for this visit. DTAP,TDAP,TD(1 - Tdap) due on 05/07/2016 DILATED RETINAL EXAM due on 11/04/2017 EXAM: BP 130/72 (BP Site: Right Arm, BP Position: Sitting, BP Cuff Size: Regular Adult) Pulse 72 Resp 16 Wt 104.8 kg (231 lb) BMI 29.66 kg/m? Pleasant well appearing older man in no acute distress. Alert and oriented all spheres. Normal affect and cognition. Speech normal. No deficits to learning or comprehension. Skin warm, dry, pink to lips and nailbeds. Normal turgor. Rash with flat red plaques on low back and sacrum, deeper red and more diffuse than previously. Similar spotty areas on extremities. Respirations regular and unlabored. Chest CTA. HRRR without murmur or gallop. Rectal exam external hemorrhoid with small 2-3mm clot. Internal exam deferred. Extrem: no clubbing, cyanosis, edema. Extremities are warm and pink with prompt capillary refill. Has 2/4+ pitting edema left lower 2/3 leg, 1/4+ right lower 2/3 leg. Calf non-tender. No palpable cords.ankle is fixed from prior trauma and surgery, ASSESSMENT/PLAN: 1. Stage 3 chronic renal impairment associated with type 2 diabetes mellitus (HCC) - ICD9: 250.40, 585.3, ICD10: E11.22, N18.3 (primary diagnosis) - BASIC METABOLIC PNL 2. Post-traumatic osteoarthritis of left foot - ICD9: 715.27, ICD10: M19.172 - HYDROCODONE 5 MG-ACETAMINOPHEN 325 MG TABLET - HYDROCODONE 5 MG-ACETAMINOPHEN 325 MG TABLET - HYDROCODONE 5 MG-ACETAMINOPHEN 325 MG TABLET 3. Gastroesophageal reflux disease without esophagitis - ICD9: 530.81, ICD10: K21.9 Controlled on medication - OMEPRAZOLE 20 MG CAPSULE,DELAYED RELEASE 4. Acute diastolic CHF (congestive heart failure) (HCC) - ICD9: 428.31, 428.0, ICD10: I50.31 May increase to full tab prn for 2-3 days if swelling and weight are increasing. Advised to wear compression stockings he has at home. - BUMETANIDE 2 MG TABLET 5. Essential hypertension - ICD9: 401.9, ICD10: I10 - good control - Goal of BP <130/80 - LOSARTAN 100 MG TABLET 6. External hemorrhoid, thrombosed - ICD9: 455.4, ICD10: K64.5 Sitz baths, emollients, bowel regulation reviewed. Follow up 2 weeks if lump still present Ian Hathaway PA-C F/u prn or in 3 months Ian Hathaway PA-C CNOV Observed: 11/22/2017 Status: COMPLETED Source: [place] 8:20 AM [facility] REPOSITORY Office Visit (FAMPWS) PEG BAEZ ([id number]) 1935 M NFR Date Time Provider Department 11/22/17 8:20 AM Ian HATHAWAY) FAMPWS During your visit today, we recorded the following information about you: Pulse Respiration Blood pressure Weight 72/minute 16/minute 130/72 104.8 kg M Anisa Hathaway PA-C 11/22/2017 9:43 AM Signed 81 year old male with c/o 1. had trouble with bowels, used suppository 2 days ago and noted a nodule. Not painful. Has some spotting intermittently with hemorrhoids. No blood a month ago with blood toilet water. Nothing since then. 2. Left leg seems to be increasing in swelling. Concerned needs more diuretic. Weight down 4lbs. Used to resolve at night, now persistent. No SOB or cough. Left leg chronic pain unchanged. 3. Update on rash: no change. Dr. Patel took biopsy from rash on sacrum, pending results. HISTORIES FAMILY HISTORY Problem Relation Age of Onset - Cancer Mother Lung cancer - Heart Father - Diabetes Brother 2 HALF BROTHERS - Coronary Artery Disease Brother CABG PAST MEDICAL HISTORY Diagnosis Date - Diaphragmatic hernia without mention of obstruction or gangrene Hiatal hernia - Diarrhea - Esophageal reflux - Generalized osteoarthrosis, unspecified site - Internal hemorrhoids without mention of complication - Other and unspecified disc disorder of unspecified region Intervertebral disc disorders - Other and unspecified hyperlipidemia - Personal history of malignant neoplasm of skin 01/17/2011 - Prediabetes Diabetes mellitus - Unspecified cardiovascular disease - 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 PAST SURGICAL HISTORY Procedure Laterality Date - COLONOSCOP W/ OR W/O BRSH SPEC 06/01/2013 Colonoscopy - COLONOSCOPY W/BX 02/22/06 - EGD W/O OR W/BRUSH/WASH 02/05/03 EGD - PAST SURGICAL HISTORY OF 1990 left foot surgery - PAST SURGICAL HISTORY OF bilateral mastoids - as an infant - REMV CATARACT EXTRACAP,INSERT LENS 2012 Cataract Extraction with PC IOL - REMV CATARACT EXTRACAP,INSERT LENS 2012 Cataract Extraction with PC IOL Social History Marital status: Spouse name: Years of education: Number of children: 2 Occupational History Occupation Employer Comment [employer] Social History Main Topics Smoking status: Former Smoker Packs/day: 0.00 Years: 0.00 Smokeless tobacco: Never Used Comment: quit in 1988 Alcohol use: Yes Comment: socially Drug use: No ACTIVE PROBLEM LIST Allergic Rhinitis, Cause Unspecified Coronary Atherosclerosis Esophageal Reflux Mixed Hyperlipidemia Essential Hypertension, Benign Osteoarthrosis, Generalized, Involving Multiple Sites Diaphragmatic Hernia Without Mention of Obstruction Or Gangrene Insomnia, Unspecified B12 Deficiency Anemia Back Pain Sciatica 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) Lumbar Spondylosis Lumbar Stenosis Bph (Benign Prostatic Hyperplasia) Ckd (Chronic Kidney Disease) Stage 3, Gfr 30-59 Ml/Min Bradycardia Trifascicular Bundle Branch Block L-S Radiculopathy Psvt (Paroxysmal Supraventricular Tachycardia) ([facility]) Dependent Edema Chronic Anticoagulation Paroxysmal Atrial Fibrillation (Hcc) Status Post Placement of Implantable Loop Recorder Sick Sinus Syndrome ([facility]) Old W[place] (Myocardial Infarction) Acute Diastolic Chf (Congestive Heart Failure) ([facility]) Complete Heart Block (Hcc) Prediabetes Pacemaker Current Outpatient Prescriptions: losartan (COZAAR) 100 mg tablet Take 1 tablet by mouth once daily. Disp: 30 tablet Rfl: 2 traZODone (DESYREL) 50 mg tablet TAKE 1 TABLET BY MOUTH DAILY AT BEDTIME NEEDED FOR SLEEP. Disp: 90 tablet Rfl: 3 bumetanide (BUMEX) 2 mg tablet Take 0.5 tablets by mouth once daily. Disp: 30 tablet Rfl: 6 triamcinolone acetonide (KENALOG) 0.1 % cream Apply 1 application to affected area three times daily. Apply sparingly to area for rash/itching. Disp: 60 g Rfl: 2 amLODIPine (NORVASC) 10 mg tablet Take 0.5 tablets by mouth once daily. Disp: 90 tablet Rfl: 3 hydrocortisone (PROCTOSOL HC) 2.5 % rectal cream Apply one application to hemorrhoids twice a day. Disp: 1 Tube Rfl: 3 clotrimazole-betamethasone (LOTRISONE) cream Apply 1 application to affected area twice daily. UNTIL CLEAR FOR UP TO 2-3 WEEKS Disp: 15 g Rfl: 1 simvastatin (ZOCOR) 20 mg tablet Take 1 tablet by mouth daily at bedtime. Disp: 90 tablet Rfl: 3 warfarin (COUMADIN) 5 mg tablet Take 0.5 tablets by mouth once daily. Disp: 30 tablet Rfl: 6 omeprazole (PRILOSEC) 20 mg capsule Take 1 capsule by mouth once daily. Disp: 90 capsule Rfl: 3 diphenhydrAMINE (BENADRYL) 25 mg capsule Take 1 capsule by mouth every 6 hours as needed. Disp: Rfl: 0 Cyanocobalamin 1,000 mcg subl Dissolve 1 tablet under the tongue once daily. One tablet under tongue daily. Disp: Rfl: 0 polyethylene glycol, bulk, 100 % powd 17 g once daily. Disp: 527 g Rfl: 6 HYDROcodone-acetaminophen (NORCO) 5-325 mg per tablet Take 1 tablet by mouth twice daily as needed for up to 30 days.Earliest Fill Date: 07/20/17 Disp: 180 tablet Rfl: 0 HYDROcodone-acetaminophen (NORCO) 5-325 mg per tablet Take 1 tablet by mouth twice daily as needed for up to 30 days.Earliest Fill Date: 08/19/17 Disp: 180 tablet Rfl: 0 HYDROcodone-acetaminophen (NORCO) 5-325 mg per tablet Take 1 tablet by mouth twice daily as needed for up to 30 days.Earliest Fill Date: 09/18/17 Disp: 180 tablet Rfl: 0 No current facility-administered medications for this visit. DTAP,TDAP,TD(1 - Tdap) due on 05/07/2016 DILATED RETINAL EXAM due on 11/04/2017 EXAM: BP 130/72 (BP Site: Right Arm, BP Position: Sitting, BP Cuff Size: Regular Adult) Pulse 72 Resp 16 Wt 104.8 kg (231 lb) BMI 29.66 kg/m? Pleasant well appearing older man in no acute distress. Alert and oriented all spheres. Normal affect and cognition. Speech normal. No deficits to learning or comprehension. Skin warm, dry, pink to lips and nailbeds. Normal turgor. Rash with flat red plaques on low back and sacrum, deeper red and more diffuse than previously. Similar spotty areas on extremities. Respirations regular and unlabored. Chest CTA. HRRR without murmur or gallop. Rectal exam external hemorrhoid with small 2-3mm clot. Internal exam deferred. Extrem: no clubbing, cyanosis, edema. Extremities are warm and pink with prompt capillary refill. Has 2/4+ pitting edema left lower 2/3 leg, 1/4+ right lower 2/3 leg. Calf non-tender. No palpable cords.ankle is fixed from prior trauma and surgery, ASSESSMENT/PLAN: 1. Stage 3 chronic renal impairment associated with type 2 diabetes mellitus (HCC) - ICD9: 250.40, 585.3, ICD10: E11.22, N18.3 (primary diagnosis) - BASIC METABOLIC PNL 2. Post-traumatic osteoarthritis of left foot - ICD9: 715.27, ICD10: M19.172 - HYDROCODONE 5 MG-ACETAMINOPHEN 325 MG TABLET - HYDROCODONE 5 MG-ACETAMINOPHEN 325 MG TABLET - HYDROCODONE 5 MG-ACETAMINOPHEN 325 MG TABLET 3. Gastroesophageal reflux disease without esophagitis - ICD9: 530.81, ICD10: K21.9 Controlled on medication - OMEPRAZOLE 20 MG CAPSULE,DELAYED RELEASE 4. Acute diastolic CHF (congestive heart failure) (HCC) - ICD9: 428.31, 428.0, ICD10: I50.31 May increase to full tab prn for 2-3 days if swelling and weight are increasing. Advised to wear compression stockings he has at home. - BUMETANIDE 2 MG TABLET 5. Essential hypertension - ICD9: 401.9, ICD10: I10 - good control - Goal of BP <130/80 - LOSARTAN 100 MG TABLET 6. External hemorrhoid, thrombosed - ICD9: 455.4, ICD10: K64.5 Sitz baths, emollients, bowel regulation reviewed. Follow up 2 weeks if lump still present Ian Hathaway PA-C F/u prn or in 3 months Ian Hathaway PA-C Referring Provider: SELF [[id number]] Allergies As of Date: 11/22/2017 Noted Allergy Reaction CALAN (VERAPAMIL HCL) 05/18/2005 DOXAZOSIN 08/18/2007 2 - Rash FLOMAX (TAMSULOSIN HCL) 05/18/2005 HCTZ (HYDROCHLOROTHIAZIDE) 07/27/2007 2 - Rash INDERAL (PROPRANOLOL HCL) 05/18/2005 LIPITOR (ATORVASTATIN CALCIUM) 05/18/2005 LISINOPRIL 10/17/2017 2 - Rash NIASPAN (NIACIN (ANTIHYPERLIPIDEM*05/18/2005 QUININE 05/18/2005 Date Reviewed: 11/22/2017 Reviewed by: Haritha Cyr LPN - Fully Assessed Reason for Visit: Lump [[id number]] Cmt: rectum Primary Visit Diagnosis: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 Earliest Fill Date: 11/22/17Disp: 60 tabletRfl: 0 omeprazole (PRILOSEC) 20 mg capsuleTake 1 capsule by mouth once daily.Disp: 90 capsuleRfl: 3 bumetanide (BUMEX) 2 mg tabletTake 0.5 tablets by mouth once daily. May take whole pill x 2-3 days prn weight gain with increased swellingDisp: 30 tabletRfl: 6 BASIC METABOLIC PNL [SQBMP] Order #: [id number] FUTURE [START ON 12/22/2017] HYDROcodone-acetaminophen (NORCO) 5-325 mg per tabletTake 1 tablet by mouth twice daily as needed for up to 30 days. Earliest Fill Date: 12/22/17Disp: 60 tabletRfl: 0 [START ON 01/21/2018] HYDROcodone-acetaminophen (NORCO) 5-325 mg per tabletTake 1 tablet by mouth twice daily as needed for up to 30 days. Earliest Fill Date: 01/21/18Disp: 60 tabletRfl: 0 Prescriptions as of 11/22/2017 Sig: LOSARTAN 100 MG TABLET Take 1 tablet by mouth once d* OMEPRAZOLE 20 MG CAPSULE,FRANCA* Take 1 capsule by mouth once * BUMETANIDE 2 MG TABLET Take 0.5 tablets by mouth onc* TRAZODONE 50 MG TABLET TAKE 1 TABLET BY MOUTH DAILY* TRIAMCINOLONE ACETONIDE 0.1 %* Apply 1 application to affect* AMLODIPINE 10 MG TABLET Take 0.5 tablets by mouth onc* HYDROCORTISONE 2.5 % TOPICAL * Apply one application to hemo* CLOTRIMAZOLE-BETAMETHASONE 1 * Apply 1 application to affect* SIMVASTATIN 20 MG TABLET Take 1 tablet by mouth daily * WARFARIN 5 MG TABLET Take 0.5 tablets by mouth onc* DIPHENHYDRAMINE 25 MG CAPSULE Take 1 capsule by mouth every* CYANOCOBALAMIN (VIT B-12) 1,0* Dissolve 1 tablet under the t* POLYETHYLENE GLYCOL (BULK) 10* 17 g once daily. HYDROCODONE 5 MG-ACETAMINOPHE* Take 1 tablet by mouth twice * HYDROCODONE 5 MG-ACETAMINOPHE* Take 1 tablet by mouth twice * HYDROCODONE 5 MG-ACETAMINOPHE* Take 1 tablet by mouth twice * HYDROCODONE 5 MG-ACETAMINOPHE* Take 1 tablet by mouth twice * HYDROCODONE 5 MG-ACETAMINOPHE* Take 1 tablet by mouth twice * Problem List As Of Date 11/22/2017 Noted Resolved Other specified disorder of penis [N48.89] INVALID FOR*11/12/2015 ALLERGIC RHINITIS NOS [J30.9] INVALID FOR* Coronary atherosclerosis [I25.10] INVALID FOR* ESOPHAGEAL REFLUX [K21.9] INVALID FOR* Type II or unspecified type diabetes mellitus w*INVALID FOR*11/14/2013 MIXED HYPERLIPIDEMIA [E78.2] INVALID FOR* BENIGN HYPERTENSION [I10] INVALID FOR* Other and unspecified hyperlipidemia [E78.5] 11/12/2015 Osteoarthrosis, generalized, involving multiple* Unspecified cardiovascular disease [I25.10] 11/12/2015 DIAPHRAGMATIC HERNIA [K44.9] More... Other and unspecified disc disorder of unspecif* 11/12/2015 More... 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] INVALID FOR*11/12/2015 Actinic skin damage [L57.8] INVALID FOR*11/12/2015 Solar Lentigines [L81.4] INVALID FOR*11/12/2015 Seborrheic Keratoses [L82.1] INVALID FOR*11/12/2015 Surgical Scars [L90.5] INVALID FOR*11/12/2015 Edema [R60.9] INVALID FOR*11/12/2015 Irritant contact dermatitis [L24.9] INVALID FOR*11/12/2015 Open wound(s) (multiple) of unspecified site(s)*INVALID FOR*08/29/2013 Postinflammatory skin changes: fading discolora*INVALID FOR*11/12/2015 Back pain [M54.9] INVALID FOR* Sciatica [M54.30] INVALID FOR* Lumbar disc displacement without myelopathy [M5*INVALID FOR* Lumbar facet arthropathy [M46.96] INVALID FOR* Lumbar spondylosis [M47.816] INVALID FOR* Lumbar stenosis [M48.061] INVALID FOR* Balanitis [N48.1] INVALID FOR*11/12/2015 Eczema intertrigo [L30.4] INVALID FOR*11/12/2015 Eczematous dermatitis [L30.9] INVALID FOR*11/12/2015 Fixed drug eruption [L27.1] INVALID FOR*11/12/2015 BPH (benign prostatic hyperplasia) [N40.0] INVALID FOR* CKD (chronic kidney disease) stage 3, GFR 30-59*INVALID FOR* Bradycardia [R00.1] INVALID FOR* 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 Paroxysmal atrial fibrillation (HCC) [I48.0] INVALID FOR* Status post placement of implantable loop recor*INVALID FOR* Sick sinus syndrome (HCC) [I49.5] INVALID FOR* Old [place] (myocardial infarction) [I25.2] INVALID FOR* Acute diastolic CHF (congestive heart failure) *INVALID FOR* Complete heart block (HCC) [I44.2] INVALID FOR* More... Prediabetes [R73.03] INVALID FOR* Pacemaker [Z95.0] INVALID FOR* More... Prescriptions ordered this encounter Disp Refills Start End LOSARTAN 100 MG TABLET 30 t* 11 11/22/2017 Route: ORAL Sig: Take 1 tablet by mouth once daily. HYDROCODONE 5 MG-ACETAMINOPHEN 325 M* 60 t* 0 11/22/2017 12/22/2017 Class: Print RX Route: ORAL Sig: Take 1 tablet by mouth twice daily as needed for up to 30 days. Earliest Fill Date: 11/22/17 OMEPRAZOLE 20 MG CAPSULE,DELAYED REL* 90 c* 3 11/22/2017 Route: ORAL Sig: Take 1 capsule by mouth once daily. BUMETANIDE 2 MG TABLET 30 t* 6 11/22/2017 Class: Med Update Route: ORAL Sig: Take 0.5 tablets by mouth once daily. May take whole pill x 2-3 days prn weight gain with increased swelling HYDROCODONE 5 MG-ACETAMINOPHEN 325 M* 60 t* 0 12/22/2017 01/21/2018 Class: Print RX Route: ORAL Sig: Take 1 tablet by mouth twice daily as needed for up to 30 days. Earliest Fill Date: 12/22/17 HYDROCODONE 5 MG-ACETAMINOPHEN 325 M* 60 t* 0 01/21/2018 02/20/2018 Class: Print RX Route: ORAL Sig: Take 1 tablet by mouth twice daily as needed for up to 30 days. Earliest Fill Date: 01/21/18 Medications Discontinued During This Encounter bumetanide (BUMEX) 2 mg tablet 30 t* 6 09/12/2017 11/22/2017 Route: ORAL Sig: Take 0.5 tablets by mouth once daily. Disc: Reason for discontinue is not on file. losartan (COZAAR) 100 mg tablet 30 t* 2 10/18/2017 11/22/2017 Route: ORAL Sig: Take 1 tablet by mouth once daily. Disc: Reason for discontinue is not on file. HYDROcodone-acetaminophen (NORCO) 5-* 180 * 0 07/20/2017 11/22/2017 Class: Print RX Cmt: ID number- [id number] Route: ORAL Sig: Take 1 tablet by mouth twice daily as needed for up to 30 days. Earliest Fill Date: 07/20/17 Disc: Reason for discontinue is not on file. omeprazole (PRILOSEC) 20 mg capsule 90 c* 3 02/22/2017 11/22/2017 Route: ORAL Sig: Take 1 capsule by mouth once daily. Disc: Reason for discontinue is not on file. Encounter Status:Closed by Ian HATHAWAY PA-C on 11/22/17 PROGRESS Observed: 11/03/2017 Status: COMPLETED Source: [place] 3:52 PM [facility] REPOSITORY HNO ID: [id number] Author: Ian Shah) Rivas Service: (none) Author Type: Physician Electrical Wiring Lineman Type: Progress Notes Filed: 11/03/2017 3:53 PM Note Text: HTN controlled Follow in 3 months with routine visist Prasanth Hathaway PA-C PROGRESS Observed: 11/03/2017 Status: COMPLETED Source: [place] 8:08 AM [facility] REPOSITORY HNO ID: [id number] Author: Aubree Smith Cma Service: (none) Author Type: (none) Type: Progress Notes Filed: 11/03/2017 3:53 PM Note Text: Manual Readin/70 Pulse: 68 Bp Vira average:138/71 Readings: 143/71 67 135/75 70 138/65 72 132/72 76 144/74 73 138/71 72 Reason for blood pressure check - Medication adjustment Patient is: Taking medication as prescribed Yes Took medication today Yes Experiencing side effects No Patient alert and oriented Pt has been identified by name and birthdate: Yes Allergies reviewed: Yes Latex allergy: no. Medication - prescribed and OTC reviewed and updated: Yes Do you need any prescription refills prior to your next visit: No Health Maintenance: Reviewed and up to date CNOV Observed: 11/03/2017 Status: COMPLETED Source: [place] 8:00 AM [facility] REPOSITORY Office Visit (FAMPWS) PEG BAEZ ([id number]) 1935 M NFR Date Time Provider Department 11/03/17 8:00 AM Ian HATHAWAY) SHYAMPWS During your visit today, we recorded the following information about you: Pulse Respiration Blood pressure Weight 68/minute 12/minute 158/70 106.6 kg Aubree Smith Cma 11/03/2017 3:53 PM Signed Manual Readin/70 Pulse: 68 Bp Vira average:138/71 Readings: 143/71 67 135/75 70 138/65 72 132/72 76 144/74 73 138/71 72 Reason for blood pressure check - Medication adjustment Patient is: Taking medication as prescribed Yes Took medication today Yes Experiencing side effects No Patient alert and oriented Pt has been identified by name and birthdate: Yes Allergies reviewed: Yes Latex allergy: no. Medication - prescribed and OTC reviewed and updated: Yes Do you need any prescription refills prior to your next visit: No Health Maintenance: Reviewed and up to date Ian Hathaway PA-C 11/03/2017 3:53 PM Signed HTN controlled Follow in 3 months with routine visist Prasanth Hathaway PA-C Referring Provider: SELF [200] Allergies As of Date: 11/03/2017 Noted Allergy Reaction CALAN (VERAPAMIL HCL) 05/18/2005 DOXAZOSIN 08/18/2007 2 - Rash FLOMAX (TAMSULOSIN HCL) 05/18/2005 HCTZ (HYDROCHLOROTHIAZIDE) 07/27/2007 2 - Rash INDERAL (PROPRANOLOL HCL) 05/18/2005 LIPITOR (ATORVASTATIN CALCIUM) 05/18/2005 LISINOPRIL 10/17/2017 2 - Rash NIASPAN (NIACIN (ANTIHYPERLIPIDEM*05/18/2005 QUININE 05/18/2005 Date Reviewed: 11/03/2017 Reviewed by: Aubree Smith Cma - Fully Assessed Reason for Visit: Recheck [92] Cmt: blood pressure Primary Visit Diagnosis:Essential hypertension, benign [I10] Prescriptions as of 11/03/2017 Sig: LOSARTAN 100 MG TABLET Take 1 tablet by mouth once d* TRAZODONE 50 MG TABLET TAKE 1 TABLET BY MOUTH DAILY* BUMETANIDE 2 MG TABLET Take 0.5 tablets by mouth onc* TRIAMCINOLONE ACETONIDE 0.1 %* Apply 1 application to affect* AMLODIPINE 10 MG TABLET Take 0.5 tablets by mouth onc* HYDROCORTISONE 2.5 % TOPICAL * Apply one application to hemo* HYDROCODONE 5 MG-ACETAMINOPHE* Take 1 tablet by mouth twice * CLOTRIMAZOLE-BETAMETHASONE 1 * Apply 1 application to affect* HYDROCODONE 5 MG-ACETAMINOPHE* Take 1 tablet by mouth twice * HYDROCODONE 5 MG-ACETAMINOPHE* Take 1 tablet by mouth twice * SIMVASTATIN 20 MG TABLET Take 1 tablet by mouth daily * WARFARIN 5 MG TABLET Take 0.5 tablets by mouth onc* OMEPRAZOLE 20 MG CAPSULE,FRANCA* Take 1 capsule by mouth once * DIPHENHYDRAMINE 25 MG CAPSULE Take 1 capsule by mouth every* CYANOCOBALAMIN (VIT B-12) 1,0* Dissolve 1 tablet under the t* POLYETHYLENE GLYCOL (BULK) 10* 17 g once daily. Problem List As Of Date 11/03/2017 Noted Resolved Other specified disorder of penis [N48.89] INVALID FOR*11/12/2015 ALLERGIC RHINITIS NOS [J30.9] INVALID FOR* Coronary atherosclerosis [I25.10] INVALID FOR* ESOPHAGEAL REFLUX [K21.9] INVALID FOR* Type II or unspecified type diabetes mellitus w*INVALID FOR*11/14/2013 MIXED HYPERLIPIDEMIA [E78.2] INVALID FOR* BENIGN HYPERTENSION [I10] INVALID FOR* Other and unspecified hyperlipidemia [E78.5] 11/12/2015 Osteoarthrosis, generalized, involving multiple* Unspecified cardiovascular disease [I25.10] 11/12/2015 DIAPHRAGMATIC HERNIA [K44.9] More... Other and unspecified disc disorder of unspecif* 11/12/2015 More... 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] INVALID FOR*11/12/2015 Actinic skin damage [L57.8] INVALID FOR*11/12/2015 Solar Lentigines [L81.4] INVALID FOR*11/12/2015 Seborrheic Keratoses [L82.1] INVALID FOR*11/12/2015 Surgical Scars [L90.5] INVALID FOR*11/12/2015 Edema [R60.9] INVALID FOR*11/12/2015 Irritant contact dermatitis [L24.9] INVALID FOR*11/12/2015 Open wound(s) (multiple) of unspecified site(s)*INVALID FOR*08/29/2013 Postinflammatory skin changes: fading discolora*INVALID FOR*11/12/2015 Back pain [M54.9] INVALID FOR* Sciatica [M54.30] INVALID FOR* Lumbar disc displacement without myelopathy [M5*INVALID FOR* Lumbar facet arthropathy [M46.96] INVALID FOR* Lumbar spondylosis [M47.816] INVALID FOR* Lumbar stenosis [M48.061] INVALID FOR* Balanitis [N48.1] INVALID FOR*11/12/2015 Eczema intertrigo [L30.4] INVALID FOR*11/12/2015 Eczematous dermatitis [L30.9] INVALID FOR*11/12/2015 Fixed drug eruption [L27.1] INVALID FOR*11/12/2015 BPH (benign prostatic hyperplasia) [N40.0] INVALID FOR* CKD (chronic kidney disease) stage 3, GFR 30-59*INVALID FOR* Bradycardia [R00.1] INVALID FOR* 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 Paroxysmal atrial fibrillation (HCC) [I48.0] INVALID FOR* Status post placement of implantable loop recor*INVALID FOR* Sick sinus syndrome (HCC) [I49.5] INVALID FOR* Old [place] (myocardial infarction) [I25.2] INVALID FOR* Acute diastolic CHF (congestive heart failure) *INVALID FOR* Complete heart block (HCC) [I44.2] INVALID FOR* More... Prediabetes [R73.03] INVALID FOR* Pacemaker [Z95.0] INVALID FOR* More... Encounter Status:Closed by Ian HATHAWAY PA-C on 11/03/17 PROTIME W/INR Collected: 11/01/2017 Status: F Source: S[place]AN F[place]ER[place] 8:54 AM [facility] REPOSITORY TYPE CODE TESTS RESULT OUT OF REFERENCE UNITS RANGE LAB L9200.1001 11.9-14.4 SEC High PROTIME ISTAT 30.7 Result Comment: Reference Range 11.9 - 14.4 LAB L9200.1999 Normal INR ISTAT 2.70 Result Comment: Critical Value > 3.5 Performed By: #### [id number] #### [facility] Point of Care [address] [place] [address] PROTIME W/INR Collected: 10/19/2017 Status: F Source: SUSAN FINGERSTICK 8:11 AM [facility] REPOSITORY TYPE CODE TESTS RESULT OUT OF REFERENCE UNITS RANGE LAB L9200.1001 11.9-14.4 SEC High PROTIME ISTAT 21.3 Result Comment: Reference Range 11.9 - 14.4 LAB L9200.1999 Normal INR ISTAT 1.80 Result Comment: Critical Value > 3.5 Performed By: #### [id number] #### [facility] Point of Care [address] [place] [address] ALBUMIN/CREAT RATIO Collected: 10/17/2017 Status: F Source: [place] 12:14 PM [facility] REPOSITORY TYPE CODE TESTS RESULT OUT OF REFERENCE UNITS RANGE LAB UCRR 20-300 mg/dL Creatinine,Ur 42.9 ine,Ran LAB UALBR 0.0-23.0 mg/L High Albumin Urine 312.0 Random LAB UALBCR 0-30 mg/g High Albumin/Creat 727 Ratio Result Comment: 30 to 300 mg/g indicates an increased risk for diabetic nephropathy. Greater than 300 mg/g is consistent with clinical nephropathy. (Am J Kidney Disease 1994, 25:107) Performed By: #### UACR #### [facility] [address] [place], [place] [address] PROGRESS Observed: 10/17/2017 Status: COMPLETED Source: [place] 11:45 AM [facility] REPOSITORY HNO ID: [id number] Author: Ian Hall (Andria) Rivas Service: (none) Author Type: Physician Electrical Wiring Lineman Type: Progress Notes Filed: 10/17/2017 1:50 PM Note Text: 81 year old male with c/o here for follow up. 1. Rash: seeing Jame Jorge: was given cortisone injection. Told it may take 2-3 months for hives to stop with clearing of medication. Has remained off lisinopril. Steadily improving. Still itrching witohout obvious rash. 2. AF/ CHF: stable. Follows with Dr. Plascencia. No SOB. Pacemaker interrogated remotely last month: doing well. 3. HTN: taking medications:Cozaar, Norvasc, Bumex. No complications. 4. GERD: controlled on omeprazole. No break through 5. CRF: last GFR improved to 48, BUN/creat= 30/1.67 HISTORIES FAMILY HISTORY Problem Relation Age of Onset - Cancer Mother Lung cancer - Heart Father - Diabetes Brother 2 HALF BROTHERS - Coronary Artery Disease Brother CABG PAST MEDICAL HISTORY Diagnosis Date - Diaphragmatic hernia without mention of obstruction or gangrene Hiatal hernia - Diarrhea - Esophageal reflux - Generalized osteoarthrosis, unspecified site - Internal hemorrhoids without mention of complication - Other and unspecified disc disorder of unspecified region Intervertebral disc disorders - Other and unspecified hyperlipidemia - Personal history of malignant neoplasm of skin 01/17/2011 - Prediabetes Diabetes mellitus - Unspecified cardiovascular disease - 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 PAST SURGICAL HISTORY Procedure Laterality Date - COLONOSCOP W/ OR W/O [facility] SPEC 06/01/2013 Colonoscopy - COLONOSCOPY W/BX 02/22/06 - EGD W/O OR W/BRUSH/WASH 02/05/03 EGD - PAST SURGICAL HISTORY OF 1990 left foot surgery - PAST SURGICAL HISTORY OF bilateral mastoids - as an infant - REMV CATARACT EXTRACAP,INSERT LENS 2012 Cataract Extraction with PC IOL - REMV CATARACT EXTRACAP,INSERT LENS 2012 Cataract Extraction with PC IOL Social History Marital status: Spouse name: Years of education: Number of children: 2 Occupational History Occupation Employer Comment [employer] Social History Main Topics Smoking status: Former Smoker Packs/day: 0.00 Years: 0.00 Smokeless tobacco: Never Used Comment: quit in 1988 Alcohol use: Yes Comment: socially Drug use: No ACTIVE PROBLEM LIST Allergic Rhinitis, Cause Unspecified Coronary Atherosclerosis Esophageal Reflux Mixed Hyperlipidemia Essential Hypertension, Benign Osteoarthrosis, Generalized, Involving Multiple Sites Diaphragmatic Hernia Without Mention of Obstruction Or Gangrene Insomnia, Unspecified B12 Deficiency Anemia Back Pain Sciatica 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) Lumbar Spondylosis Lumbar Stenosis Bph (Benign Prostatic Hyperplasia) Ckd (Chronic Kidney Disease) Stage 3, Gfr 30-59 Ml/Min Bradycardia Trifascicular Bundle Branch Block L-S Radiculopathy Psvt (Paroxysmal Supraventricular Tachycardia) (Hcc) Dependent Edema Chronic Anticoagulation Paroxysmal Atrial Fibrillation (Hcc) Status Post Placement of Implantable Loop Recorder Sick Sinus Syndrome (Hcc) [place] (Myocardial Infarction) Acute Diastolic Chf (Congestive Heart Failure) (Hcc) Complete Heart Block (Hcc) Prediabetes Pacemaker Current Outpatient Prescriptions: bumetanide (BUMEX) 2 mg tablet Take 0.5 tablets by mouth once daily. Disp: 30 tablet Rfl: 6 cholecalciferol, Vitamin D3, (VITAMIN D3) 50,000 unit cap capsule Take 1 capsule by mouth once each week. HOLD 08/16/17 until rah clears Disp: 12 capsule Rfl: 3 losartan (COZAAR) 50 mg tablet Take 1 tablet by mouth once daily. Disp: 30 tablet Rfl: 2 triamcinolone acetonide (KENALOG) 0.1 % cream Apply 1 application to affected area three times daily. Apply sparingly to area for rash/itching. Disp: 60 g Rfl: 2 amLODIPine (NORVASC) 10 mg tablet Take 0.5 tablets by mouth once daily. Disp: 90 tablet Rfl: 3 hydrocortisone (PROCTOSOL HC) 2.5 % rectal cream Apply one application to hemorrhoids twice a day. Disp: 1 Tube Rfl: 3 clotrimazole-betamethasone (LOTRISONE) cream Apply 1 application to affected area twice daily. UNTIL CLEAR FOR UP TO 2-3 WEEKS Disp: 15 g Rfl: 1 HYDROcodone-acetaminophen (NORCO) 5-325 mg per tablet Take 1 tablet by mouth twice daily as needed for up to 30 days.Earliest Fill Date: 09/18/17 Disp: 180 tablet Rfl: 0 simvastatin (ZOCOR) 20 mg tablet Take 1 tablet by mouth daily at bedtime. Disp: 90 tablet Rfl: 3 warfarin (COUMADIN) 5 mg tablet Take 0.5 tablets by mouth once daily. Disp: 30 tablet Rfl: 6 traZODone (DESYREL) 50 mg tablet TAKE 1 TABLET BY MOUTH DAILY AT BEDTIME NEEDED FOR SLEEP. Disp: 90 tablet Rfl: 1 omeprazole (PRILOSEC) 20 mg capsule Take 1 capsule by mouth once daily. Disp: 90 capsule Rfl: 3 diphenhydrAMINE (BENADRYL) 25 mg capsule Take 1 capsule by mouth every 6 hours as needed. Disp: Rfl: 0 Cyanocobalamin 1,000 mcg subl Dissolve 1 tablet under the tongue once daily. One tablet under tongue daily. Disp: Rfl: 0 polyethylene glycol, bulk, 100 % powd 17 g once daily. Disp: 527 g Rfl: 6 HYDROcodone-acetaminophen (NORCO) 5-325 mg per tablet Take 1 tablet by mouth twice daily as needed for up to 30 days.Earliest Fill Date: 07/20/17 Disp: 180 tablet Rfl: 0 HYDROcodone-acetaminophen (NORCO) 5-325 mg per tablet Take 1 tablet by mouth twice daily as needed for up to 30 days.Earliest Fill Date: 08/19/17 Disp: 180 tablet Rfl: 0 No current facility-administered medications for this visit. DTAP,TDAP,TD(1 - Tdap) due on 05/07/2016 DILATED RETINAL EXAM due on 11/04/2017 URINE ALBUMIN CREATININE RATIO due on 11/05/2017 EXAM: BP 148/80 Pulse 80 Temp 36.9 ?C (98.4 ?F) (Tympanic) Resp 12 Wt 103 kg (227 lb) BMI 29.15 kg/m? Pleasant older man in no acute distress. Alert and oriented all spheres. Normal affect and cognition. Speech normal. No deficits to learning or comprehension. Skin warm, dry, pink to lips and nailbeds. Normal turgor. Has some very faint erythematous macules on RFA. Some patchy pink on upper back without clear rash. Respirations regular and unlabored. HEENT WNL. TM's clear. Nose and oropharynx free from injection or lesion. No cervical lymph nodes. Thyroid non-tender, no masses Chest CTA. HRRR without murmur or gallop. Extrem: no clubbing, cyanosis, edema though doughy lower legs. Extremities are warm and pink with prompt capillary refill. ASSESSMENT/PLAN: 1. Prediabetes - ICD9: 790.29, ICD10: R73.03 (primary diagnosis) - ALBUMIN/CREAT RATIO RND UR 2. Chronic insomnia - ICD9: 780.52, ICD10: F51.04 stable - TRAZODONE 50 MG TABLET 3. Essential hypertension, benign - ICD9: 401.1, ICD10: I10 - suboptimal control - Continue current medication(s) - Recommended regular aerobic exercise. - Recommend home blood pressure monitoring, to bring results in on next visit - Goal of BP <130/80 - LOSARTAN 50 MG TABLET - recheck in 3 months 4. CKD (chronic kidney disease) stage 3, GFR 30-59 ml/min - ICD9: 585.3, ICD10: N18.3 Improved slightly, recheck in 3 months. 5. Complete heart block (HCC) - ICD9: 426.0, ICD10: I44.[address] Plascencia. No active CHF. 6. Pacemaker - ICD9: V45.01, ICD10: Z95.0 Functioning well. f/u 3 months Patient (guardian) expressed understanding of instructions and agrees with plan. Ian Hathaway PA-C CNOV Observed: 10/17/2017 Status: COMPLETED Source: [place] 11:20 AM [facility] REPOSITORY Office Visit (FAMPWS) PEG BAEZ ([id number]) 1935 NF Date Time Provider Department 10/17/17 11:20 AM Ian HATHAWAY) FAMPWS During your visit today, we recorded the following information about you: Temperature Pulse Respiration Blood pressure 98.4 degrees 80/minute 12/minute 148/80 Weight 103 kg Ian Hathaway PA-C 10/17/2017 1:50 PM Signed 81 year old male with c/o here for follow up. 1. Rash: seeing Jame Patel: was given cortisone injection. Told it may take 2-3 months for hives to stop with clearing of medication. Has remained off lisinopril. Steadily improving. Still itrching witohout obvious rash. 2. AF/ CHF: stable. Follows with Dr. Plascencia. No SOB. Pacemaker interrogated remotely last month: doing well. 3. HTN: taking medications:Cozaar, Norvasc, Bumex. No complications. 4. GERD: controlled on omeprazole. No break through 5. CRF: last GFR improved to 48, BUN/creat= 30/1.67 HISTORIES FAMILY HISTORY Problem Relation Age of Onset - Cancer Mother Lung cancer - Heart Father - Diabetes Brother 2 HALF BROTHERS - Coronary Artery Disease Brother CABG PAST MEDICAL HISTORY Diagnosis Date - Diaphragmatic hernia without mention of obstruction or gangrene Hiatal hernia - Diarrhea - Esophageal reflux - Generalized osteoarthrosis, unspecified site - Internal hemorrhoids without mention of complication - Other and unspecified disc disorder of unspecified region Intervertebral disc disorders - Other and unspecified hyperlipidemia - Personal history of malignant neoplasm of skin 01/17/2011 - Prediabetes Diabetes mellitus - Unspecified cardiovascular disease - 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 PAST SURGICAL HISTORY Procedure Laterality Date - COLONOSCOP W/ OR W/O [facility] SPEC 06/01/2013 Colonoscopy - COLONOSCOPY W/BX 02/22/06 - EGD W/O OR W/BRUSH/WASH 02/05/03 EGD - PAST SURGICAL HISTORY OF 1990 left foot surgery - PAST SURGICAL HISTORY OF bilateral mastoids - as an - REMV CATARACT EXTRACAP,INSERT LENS 2012 Cataract Extraction with PC IOL - REMV CATARACT EXTRACAP,INSERT LENS 2012 Cataract Extraction with PC IOL Social History Marital status: Spouse name: Years of education: Number of children: 2 Occupational History Occupation Employer Comment [employer] Social History Main Topics Smoking status: Former Smoker Packs/day: 0.00 Years: 0.00 Smokeless tobacco: Never Used Comment: quit in 1988 Alcohol use: Yes Comment: socially Drug use: No ACTIVE PROBLEM LIST Allergic Rhinitis, Cause Unspecified Coronary Atherosclerosis Esophageal Reflux Mixed Hyperlipidemia Essential Hypertension, Benign Osteoarthrosis, Generalized, Involving Multiple Sites Diaphragmatic Hernia Without Mention of Obstruction Or Gangrene Insomnia, Unspecified B12 Deficiency Anemia Back Pain Sciatica 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) Lumbar Spondylosis Lumbar Stenosis Bph (Benign Prostatic Hyperplasia) Ckd (Chronic Kidney Disease) Stage 3, Gfr 30-59 Ml/Min Bradycardia Trifascicular Bundle Branch Block L-S Radiculopathy Psvt (Paroxysmal Supraventricular Tachycardia) ([facility]) Dependent Edema Chronic Anticoagulation Paroxysmal Atrial Fibrillation ([facility]) Status Post Placement of Implantable Loop Recorder Sick Sinus Syndrome ([facility]) [place] (Myocardial Infarction) Acute Diastolic Chf (Congestive Heart Failure) (Hcc) Complete Heart Block (Hcc) Prediabetes Pacemaker Current Outpatient Prescriptions: bumetanide (BUMEX) 2 mg tablet Take 0.5 tablets by mouth once daily. Disp: 30 tablet Rfl: 6 cholecalciferol, Vitamin D3, (VITAMIN D3) 50,000 unit cap capsule Take 1 capsule by mouth once each week. HOLD 08/16/17 until rah clears Disp: 12 capsule Rfl: 3 losartan (COZAAR) 50 mg tablet Take 1 tablet by mouth once daily. Disp: 30 tablet Rfl: 2 triamcinolone acetonide (KENALOG) 0.1 % cream Apply 1 application to affected area three times daily. Apply sparingly to area for rash/itching. Disp: 60 g Rfl: 2 amLODIPine (NORVASC) 10 mg tablet Take 0.5 tablets by mouth once daily. Disp: 90 tablet Rfl: 3 hydrocortisone (PROCTOSOL HC) 2.5 % rectal cream Apply one application to hemorrhoids twice a day. Disp: 1 Tube Rfl: 3 clotrimazole-betamethasone (LOTRISONE) cream Apply 1 application to affected area twice daily. UNTIL CLEAR FOR UP TO 2-3 WEEKS Disp: 15 g Rfl: 1 HYDROcodone-acetaminophen (NORCO) 5-325 mg per tablet Take 1 tablet by mouth twice daily as needed for up to 30 days.Earliest Fill Date: 09/18/17 Disp: 180 tablet Rfl: 0 simvastatin (ZOCOR) 20 mg tablet Take 1 tablet by mouth daily at bedtime. Disp: 90 tablet Rfl: 3 warfarin (COUMADIN) 5 mg tablet Take 0.5 tablets by mouth once daily. Disp: 30 tablet Rfl: 6 traZODone (DESYREL) 50 mg tablet TAKE 1 TABLET BY MOUTH DAILY AT BEDTIME NEEDED FOR SLEEP. Disp: 90 tablet Rfl: 1 omeprazole (PRILOSEC) 20 mg capsule Take 1 capsule by mouth once daily. Disp: 90 capsule Rfl: 3 diphenhydrAMINE (BENADRYL) 25 mg capsule Take 1 capsule by mouth every 6 hours as needed. Disp: Rfl: 0 Cyanocobalamin 1,000 mcg subl Dissolve 1 tablet under the tongue once daily. One tablet under tongue daily. Disp: Rfl: 0 polyethylene glycol, bulk, 100 % powd 17 g once daily. Disp: 527 g Rfl: 6 HYDROcodone-acetaminophen (NORCO) 5-325 mg per tablet Take 1 tablet by mouth twice daily as needed for up to 30 days.Earliest Fill Date: 07/20/17 Disp: 180 tablet Rfl: 0 HYDROcodone-acetaminophen (NORCO) 5-325 mg per tablet Take 1 tablet by mouth twice daily as needed for up to 30 days.Earliest Fill Date: 08/19/17 Disp: 180 tablet Rfl: 0 No current facility-administered medications for this visit. DTAP,TDAP,TD(1 - Tdap) due on 05/07/2016 DILATED RETINAL EXAM due on 11/04/2017 URINE ALBUMIN CREATININE RATIO due on 11/05/2017 EXAM: BP 148/80 Pulse 80 Temp 36.9 ?C (98.4 ?F) (Tympanic) Resp 12 Wt 103 kg (227 lb) BMI 29.15 kg/m? Pleasant older man in no acute distress. Alert and oriented all spheres. Normal affect and cognition. Speech normal. No deficits to learning or comprehension. Skin warm, dry, pink to lips and nailbeds. Normal turgor. Has some very faint erythematous macules on RFA. Some patchy pink on upper back without clear rash. Respirations regular and unlabored. HEENT WNL. TM's clear. Nose and oropharynx free from injection or lesion. No cervical lymph nodes. Thyroid non-tender, no masses Chest CTA. HRRR without murmur or gallop. Extrem: no clubbing, cyanosis, edema though doughy lower legs. Extremities are warm and pink with prompt capillary refill. ASSESSMENT/PLAN: 1. Prediabetes - ICD9: 790.29, ICD10: R73.03 (primary diagnosis) - ALBUMIN/CREAT RATIO RND UR 2. Chronic insomnia - ICD9: 780.52, ICD10: F51.04 stable - TRAZODONE 50 MG TABLET 3. Essential hypertension, benign - ICD9: 401.1, ICD10: I10 - suboptimal control - Continue current medication(s) - Recommended regular aerobic exercise. - Recommend home blood pressure monitoring, to bring results in on next visit - Goal of BP <130/80 - LOSARTAN 50 MG TABLET - recheck in 3 months 4. CKD (chronic kidney disease) stage 3, GFR 30-59 ml/min - ICD9: 585.3, ICD10: N18.3 Improved slightly, recheck in 3 months. 5. Complete heart block (HCC) - ICD9: 426.0, ICD10: I44.2 Pacemaker. Follow[address] Plascencia. No active CHF. 6. Pacemaker - ICD9: V45.01, ICD10: Z95.0 Functioning well. f/u 3 months Patient (guardian) expressed understanding of instructions and agrees with plan. M Anisa Hathaway PA-C Referring Provider: SELF [[id number]] Allergies As of Date: 10/17/2017 Noted Allergy Reaction CALAN (VERAPAMIL HCL) 05/18/2005 DOXAZOSIN 08/18/2007 2 - Rash FLOMAX (TAMSULOSIN HCL) 05/18/2005 HCTZ (HYDROCHLOROTHIAZIDE) 07/27/2007 2 - Rash INDERAL (PROPRANOLOL HCL) 05/18/2005 LIPITOR (ATORVASTATIN CALCIUM) 05/18/2005 LISINOPRIL 10/17/2017 2 - Rash NIASPAN (NIACIN (ANTIHYPERLIPIDEM*05/18/2005 QUININE 05/18/2005 Date Reviewed: 10/17/2017 Reviewed by: Shaina Bansal LPN - Fully Assessed Reason for Visit: F/U 3 Month [443] Results [95] Cmt: labs Rash [1087] Cmt: continues on going for about 3 months Reason For Visit History Recorded Primary Visit Diagnosis:Prediabetes [R73.03] Other Visit Diagnoses:Chronic insomnia [F51.04] Essential hypertension, benign [I10] CKD (chronic kidney disease) stage 3, GFR 30-59 ml/min [N18.3] Complete heart block (HCC) [I44.2] Pacemaker [Z95.0] Order(s):traZODone (DESYREL) 50 mg tabletTAKE 1 TABLET BY MOUTH DAILY AT BEDTIME NEEDED FOR SLEEP.Disp: 90 tabletRfl: 3 losartan (COZAAR) 50 mg tabletTake 1 tablet by mouth once daily.Disp: 90 tabletRfl: 2 ALBUMIN/CREAT RATIO RND UR [SQUACR] Order #: [id number] FUTURE Prescriptions as of 10/17/2017 Sig: TRAZODONE 50 MG TABLET TAKE 1 TABLET BY MOUTH DAILY* LOSARTAN 50 MG TABLET Take 1 tablet by mouth once d* BUMETANIDE 2 MG TABLET Take 0.5 tablets by mouth onc* TRIAMCINOLONE ACETONIDE 0.1 %* Apply 1 application to affect* AMLODIPINE 10 MG TABLET Take 0.5 tablets by mouth onc* HYDROCORTISONE 2.5 % TOPICAL * Apply one application to hemo* CLOTRIMAZOLE-BETAMETHASONE 1 * Apply 1 application to affect* HYDROCODONE 5 MG-ACETAMINOPHE* Take 1 tablet by mouth twice * SIMVASTATIN 20 MG TABLET Take 1 tablet by mouth daily * WARFARIN 5 MG TABLET Take 0.5 tablets by mouth onc* OMEPRAZOLE 20 MG CAPSULE,FRANCA* Take 1 capsule by mouth once * DIPHENHYDRAMINE 25 MG CAPSULE Take 1 capsule by mouth every* CYANOCOBALAMIN (VIT B-12) 1,0* Dissolve 1 tablet under the t* POLYETHYLENE GLYCOL (BULK) 10* 17 g once daily. HYDROCODONE 5 MG-ACETAMINOPHE* Take 1 tablet by mouth twice * HYDROCODONE 5 MG-ACETAMINOPHE* Take 1 tablet by mouth twice * Problem List As Of Date 10/17/2017 Noted Resolved Other specified disorder of penis [N48.89] INVALID FOR*11/12/2015 ALLERGIC RHINITIS NOS [J30.9] INVALID FOR* Coronary atherosclerosis [I25.10] INVALID FOR* ESOPHAGEAL REFLUX [K21.9] INVALID FOR* Type II or unspecified type diabetes mellitus w*INVALID FOR*11/14/2013 MIXED HYPERLIPIDEMIA [E78.2] INVALID FOR* BENIGN HYPERTENSION [I10] INVALID FOR* Other and unspecified hyperlipidemia [E78.5] 11/12/2015 Osteoarthrosis, generalized, involving multiple* Unspecified cardiovascular disease [I25.10] 11/12/2015 DIAPHRAGMATIC HERNIA [K44.9] More... Other and unspecified disc disorder of unspecif* 11/12/2015 More... 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] INVALID FOR*11/12/2015 Actinic skin damage [L57.8] INVALID FOR*11/12/2015 Solar Lentigines [L81.4] INVALID FOR*11/12/2015 Seborrheic Keratoses [L82.1] INVALID FOR*11/12/2015 Surgical Scars [L90.5] INVALID FOR*11/12/2015 Edema [R60.9] INVALID FOR*11/12/2015 Irritant contact dermatitis [L24.9] INVALID FOR*11/12/2015 Open wound(s) (multiple) of unspecified site(s)*INVALID FOR*08/29/2013 Postinflammatory skin changes: fading discolora*INVALID FOR*11/12/2015 Back pain [M54.9] INVALID FOR* Sciatica [M54.30] INVALID FOR* Lumbar disc displacement without myelopathy [M5*INVALID FOR* Lumbar facet arthropathy [M46.96] INVALID FOR* Lumbar spondylosis [M47.816] INVALID FOR* Lumbar stenosis [M48.061] INVALID FOR* Balanitis [N48.1] INVALID FOR*11/12/2015 Eczema intertrigo [L30.4] INVALID FOR*11/12/2015 Eczematous dermatitis [L30.9] INVALID FOR*11/12/2015 Fixed drug eruption [L27.1] INVALID FOR*11/12/2015 BPH (benign prostatic hyperplasia) [N40.0] INVALID FOR* CKD (chronic kidney disease) stage 3, GFR 30-59*INVALID FOR* Bradycardia [R00.1] INVALID FOR* 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 Paroxysmal atrial fibrillation (HCC) [I48.0] INVALID FOR* Status post placement of implantable loop recor*INVALID FOR* Sick sinus syndrome (HCC) [I49.5] INVALID FOR* Old [place] (myocardial infarction) [I25.2] INVALID FOR* Acute diastolic CHF (congestive heart failure) *INVALID FOR* Complete heart block (HCC) [I44.2] INVALID FOR* More... Prediabetes [R73.03] INVALID FOR* Pacemaker [Z95.0] INVALID FOR* More... Prescriptions ordered this encounter Disp Refills Start End TRAZODONE 50 MG TABLET 90 t* 3 10/17/2017 Sig: TAKE 1 TABLET BY MOUTH DAILY AT BEDTIME NEEDED FOR SLEEP. LOSARTAN 50 MG TABLET 90 t* 2 10/17/2017 Route: ORAL Sig: Take 1 tablet by mouth once daily. Medications Discontinued During This Encounter cholecalciferol, Vitamin D3, (VITAMI* 12 c* 3 08/16/2017 10/17/2017 Class: Med Update Route: ORAL Sig: Take 1 capsule by mouth once each week. HOLD 08/16/17 until rah clears Disc: Reason for discontinue is not on file. traZODone (DESYREL) 50 mg tablet 90 t* 1 04/25/2017 10/17/2017 Sig: TAKE 1 TABLET BY MOUTH DAILY AT BEDTIME NEEDED FOR SLEEP. Disc: Reason for discontinue is not on file. losartan (COZAAR) 50 mg tablet 30 t* 2 08/16/2017 10/17/2017 Route: ORAL Sig: Take 1 tablet by mouth once daily. Disc: Reason for discontinue is not on file. Encounter Status:Closed by Ian HATHAWAY PA-C on 10/17/17 CK Collected: 10/13/2017 Status: F Source: [facility] 7:35 AM [facility] [place] REPOSITORY TYPE CODE TESTS RESULT OUT OF RANGE REFERENCE UNITS LAB CK 51-298 U/L CK 107 Result Comment: Please note the updated, gender-specific reference range for this test (effective 06/03/2016). Performed By: #### CK, CMP, LIPB, HBA1C, VITD #### [facility] [address] [address] COMP METABOLIC PANEL Collected: 10/13/2017 Status: F Source: [place] 7:[address] [facility] [place] REPOSITORY TYPE CODE TESTS RESULT OUT OF REFERENCE UNITS RANGE LAB TP 6.3-8.0 g/dL Protein, Total 7.2 LAB ALB 3.9-4.9 g/dL Albumin 4.1 LAB CA 8.5-10.2 mg/dL Calcium, Total 9.4 LAB TBIL 0.2-1.3 mg/dL Bilirubin, Total 0.6 LAB ALKP 36-108 U/L Alkaline Phosphatase 47 LAB AST 14-40 U/L AST 16 LAB GLU 74-99 mg/dL Glucose High 116 Result Comment: The [place] Diabetes Association (ADA) provides guidance for cutoff values for fasting glucose and random glucose. The ADA defines fasting as no caloric intake for at least 8 hours. Fas ting plasma glucose results between 100 to 125 mg/dL indicate increased risk for diabetes (prediabetes). Fasting plasma glucose results greater than or equal to 126 mg/dL meet the criteria for diagnosis of diabetes. In the absence of unequivocal hyperglycemia, results should be confirmed by repeat testing. In a patient with classic symptoms of hyperglycemia or hyperglycemic crisis, random plasma glucose results greater than or equal to 200 mg/dL meet the criteria for diagnosis of diabetes. Reference: Standards of Medical Care in Diabetes 2016, [place] Diabetes Association. Diabetes Care. 2016.39(Suppl 1). LAB BUN 9-24 mg/dL BUN High 30 LAB CRET 0.73-1.22 mg/dL Creatinine High 1.67 LAB NA 136-144 mmol/L Sodium 139 LAB K 3.7-5.1 mmol/L Potassium 4.7 LAB CL 97-105 mmol/L Chloride 100 LAB CO2 22-30 mmol/L CO2 23 LAB AGAP 9-18 mmol/L Anion Gap 16 LAB ALT 10-54 U/L ALT 14 LAB GFRAA eGFR- Amer. 48 LAB GFRNAA . eGFR-All Other Races 40 Result Comment: eGFR (Estimated GFR) Units of measure: mL/min/1.73 meters squared eGFR is derived from the reexpressed MDRD Study equation using the following parameters: serum creatinine, age, gender and race. The creatinine assay has been calibrated to be traceable to IDMS. An eGFR <60 mL/min/1.73m2 for >3 months is consistent with chronic kidney disease. Refer to KDOQI guidelines for clinical interpretation. In patients with unstable renal function, e.g. those with acute kidney injury, the eGFR may not accurately reflect actual GFR. Performed By: #### CK, CMP, LIPB, HBA1C, VITD #### [facility] [address] [place], [place] [address] LIPID PANEL, BASIC Collected: 10/13/2017 Status: F Source: [place] 7:[address] [facility] REPOSITORY TYPE CODE TESTS RESULT OUT OF REFERENCE UNITS RANGE LAB CHOL <200 mg/dL Cholesterol 199 Result Comment: <200 mg/dL, Desirable 200-239 mg/dL, Borderline high >239 mg/dL, High LAB TRIGLY <150 mg/dL Triglyceride 146 Result Comment: <150 mg/dL, Normal 150-199 mg/dL, Borderline high 200-499 mg/dL, High >499 mg/dL, Very high LAB HDL >39 mg/dL HDL-Cholesterol 50 Result Comment: 40-59 mg/dL, Acceptable >59 mg/dL, High: Negative risk factor for coronary heart disease <40 mg/dL, Low: Positive risk factor for coronary heart disease LAB LDL <100 mg/dL LDL-Cholesterol High 120 Result Comment: <100 mg/dL, Optimal 100-129 mg/dL, Near optimal/above optimal 130-159 mg/dL, Borderline high 160-189 mg/dL, High >189 mg/dL, Very high Secondary prevention optimal LDL Cholesterol levels are recommended to be < 70 mg/dL LAB NONHDL <130 mg/dL Non HDL High Cholesterol 149 Result Comment: <130 mg/dL, Optimal 130-159 mg/dL, Near optimal/above optimal 160-189 mg/dL, Borderline high 190-219 mg/dL, High >219 mg/dL, Very high Secondary prevention optimal non HDL Cholesterol levels are recommended to be < 100 mg/dL LAB FT hrs Fasting Time 12 LAB VLDL <30 mg/dL VLDL Cholesterol 29 LAB TCHDL <5.10 TC:HDL Ratio 3.98 LAB LDLHDL <2.54 LDL:HDL Ratio 2.40 Result Comment: Reference: 1. National Cholesterol Education Program ATP III Guideline At-A-Glance Quick Desk Reference: National Heart, Lung, and Blood [place]. National Institutes of Health. 2001: NIH Publication No. 01-3305. 2. An International Atherosclerosis Society position paper: global recommendations for the management of dyslipidemia: executive summary, Atherosclerosis. 2014: 232(2):410-413. Performed By: #### CK, CMP, LIPB, HBA1C, VITD #### [facility] [address] [place] [id number] HEMOGLOBIN A1C Collected: 10/13/2017 Status: F Source: [place] 7:[address] [facility] REPOSITORY TYPE CODE TESTS RESULT OUT OF REFERENCE UNITS RANGE LAB HGBA1C 4.3-5.6 % High Hemoglobin A1c 6.2 LAB HBA0 mg/dL Est. Average Glucose 131 Result Comment: eAG: (Estimated average glucose) is a calculated value from HgbA1c and is outbound sales representative of the average blood glucose level in the last 2-3 month period. Performed By: #### CK, CMP, LIPB, HBA1C, VITD #### [facility] [address] [place], [place] [address] VITAMIN D 25 HYDROXY Collected: 10/13/2017 Status: F Source: [place] 7:[address] [facility] REPOSITORY TYPE CODE TESTS RESULT OUT OF REFERENCE UNITS RANGE LAB VITD 31.0-80.0 ng/mL Vitamin D 25 34.6 Hydroxy Result Comment: Classification of 25 [place] Vitamin D status: Insufficiency/Moderate Deficiency: < or = 30 ng/mL Sufficiency/Optimal Levels: 31 to 80 ng/mL Toxicity: > 100 ng/mL Test performed by chemiluminescent immunoassay. Performed By: #### CK, CMP, LIPB, HBA1C, VITD #### [facility] [address] [place], [place] [address] PACEMAKER CHECK Observed: 10/06/2017 Status: F Source: [place] 2:18 PM [facility] REPOSITORY [facility] [address] [place] [address] Pacemaker Check Date of Service: 09/26/17 1530 MR#: [id number] Acct: [id number] Name: PEG BAEZ Rep #: [id number] : 1935 From: Elidia Raber Age/Sex: 81/M Location: [facility] Status: Signed Comments Summary Comments: Remote Dual Chamber Pacemaker Evaluation: Remote interrogation shows 1 MS episode, <1% total time and 1 NSVT episode and 1 NSVT episode since 03/15/17. Stored e-gram for ATR shows atrial flutter with appropriate MS. E-gram for NSVT episode shows MVT @ 180 bpm (AV dissociated) x 10 beats. Presenting rhythm shows AV sequential paced @ 60 ppm. PLANTING SUPERVISOR=98%. Battery longevity approx 8.5 yrs. Lead impedances, sensing and auto pace/sense thresholds remain stable. Normal remote PPM function. Pt notified remote transmission received and next f/u appt scheduled for in 3 mos. Device Device Date Interviewed: 09/26/17 Follow-up Location: remote Interview Reason: scheduled follow up Athletic Shoe Designer: Henderson Scientific Name: Simona PARKER DR IS-1 Model: L111 Serial #: [id number] Implant Date: 01/26/17 Year(s): 0 Implant Physician: Dr. Loyd Plascencia Patient Characteristics AV/Node Indication: Second degree AV block, Complete heart block Ejection fraction %: 55 to 59 (01/25/2017) By: Echo Underlying rhythm: Mobitz 2 second degree AV block Pacemaker Dependent: No Device Characteristics Device: Dual Chamber Type: Pacemaker Remote Follow-Up: Latitude Leads Lead #1 Athletic Shoe Designer Lead 1: Henderson Scientific Model Lead 1: 8eighty WearevSayduck MRI 7741/52 Serial# Lead 1: [id number] Date Implanted Lead 1: 01/26/17 Position Lead 1: RA Lead #2 Athletic Shoe Designer Lead 2: Henderson Scientific Model Lead 2: 8eighty WearevSayduck MRI 7745/59 Serial# Lead 2: [id number] Date Implanted Lead 2: 01/26/17 Position Lead 2: RV Diagnostics Pacing % RA Pacin % RV Pacin Mode Switching Total # Episodes: 1 % Mode switched: 1 Arrhythmias Non-Sust Episodes: 0 Measurements Battery Magnet Rate (bmp): 100 Battery Status: MANDO Predicted Remaining Longevity (months or years): 8.5 years RA Measurements Signal Amplitude (mV): 2.7 Impedance (Ohms): 628 Threshold Voltage: 0.6 @ PW(ms): 0.4 RV Measurements Signal Amplitude (mV): 19.4 Impedance (Ohms): 999 Threshold Voltage: 0.6 @ PW(ms): 0.4 Miller Settings Miller Settings Pacemaker Mode DDD Lower Rate Limit (bpm) 60 Hysteresis Rate (bpm) Max Track Rate (bpm) 130 Max Sensor Rate (bpm) Max AV Delay (msec) Max PV Delay (msec) Max PVARP (msec) 300 Output/Sensing V/PW (ms) 2.0/0.4 auto1.1/0.4 Sensitivity RA RV LV AGC 0.25 0.6 Comments: Billing Codes PM Device Codes: PM Dev Interrogate (Remot Assessment AND Plan Problems 1. Cardiac pacemaker in situ Z95.0 PPM insertion 01/26/2017 2. Atrioventricular block, Mobitz type 2 I44.1 3. Atrioventricular block, complete I44.2 4. Bradycardia R00.1 symptomatic 5. 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 Paroxysmal atrial fibrillation I48.0 7. Acute on chronic diastolic congestive heart failure I50.33 10/05/17 1840 <Electronically signed by Elidia Pacheco > Date Elidia Pacheco 10/06/17 1418<Electronically signed by Loyd Plascencia MD> Cosigner Signature: Date (if applicable) Loyd Plascencia MD CC: PROTIME W/INR Collected: 10/05/2017 Status: F Source: [place] 8:09 AM [facility] REPOSITORY TYPE CODE TESTS RESULT OUT OF REFERENCE UNITS RANGE LAB L9200.1001 11.9-14.4 SEC High PROTIME ISTAT 20.8 Result Comment: Reference Range 11.9 - 14.4 LAB L9200.2000 Normal INR ISTAT 1.80 Result Comment: Critical Value > 3.5 Performed By: #### L9200.0000 #### [facility] Point of Care [address] [place] [address] CNOV Observed: 09/13/2017 Status: COMPLETED Source: [place] 1:00 PM [facility] REPOSITORY Office Visit (FAMPWS) PEG BAEZ ([id number]) 1935 M NFR Date Time Provider Department 09/13/17 1:00 PM [facility] FAMPWS During your visit today, we recorded the following information about you: Pulse Respiration Blood pressure 80/minute 12/minute 138/74 Shaina Bansal LPN 09/13/2017 8:58 AM Signed Manual Readin/74 Pulse: 84 Reason for blood pressure check - Last BP elevated and Medication adjustment Patient is: Taking medication as prescribed Yes Took medication today Yes Experiencing side effects No Alert and oriented x 3 Is not a tobacco user. Recommendations Continue taking medications as prescribed Follow-up Yes as instructed Pt has been identified by name and birthdate: Yes Allergies reviewed: Yes Latex allergy: no. Medication - prescribed and OTC reviewed and updated: Yes Do you need any prescription refills prior to your next visit: No Health Maintenance: Reviewed and up to date Referring Provider: SELF [200] Allergies As of Date: 09/13/2017 Noted Allergy Reaction CALAN (VERAPAMIL HCL) 05/18/2005 DOXAZOSIN 08/18/2007 2 - Rash FLOMAX (TAMSULOSIN HCL) 05/18/2005 HCTZ (HYDROCHLOROTHIAZIDE) 07/27/2007 2 - Rash INDERAL (PROPRANOLOL HCL) 05/18/2005 LIPITOR (ATORVASTATIN CALCIUM) 05/18/2005 NIASPAN (NIACIN (ANTIHYPERLIPIDEM*05/18/2005 QUININE 05/18/2005 Date Reviewed: 09/13/2017 Reviewed by: Shaina Bansal LPN - Fully Assessed Reason for Visit: Blood Pressure [15] Primary Visit Diagnosis:Essential hypertension, benign [I10] Prescriptions as of 09/13/2017 Sig: BUMETANIDE 2 MG TABLET Take 0.5 tablets by mouth onc* CHOLECALCIFEROL (VITAMIN D3) * Take 1 capsule by mouth once * LOSARTAN 50 MG TABLET Take 1 tablet by mouth once d* TRIAMCINOLONE ACETONIDE 0.1 %* Apply 1 application to affect* AMLODIPINE 10 MG TABLET Take 0.5 tablets by mouth onc* HYDROCORTISONE 2.5 % TOPICAL * Apply one application to hemo* CLOTRIMAZOLE-BETAMETHASONE 1 * Apply 1 application to affect* HYDROCODONE 5 MG-ACETAMINOPHE* Take 1 tablet by mouth twice * HYDROCODONE 5 MG-ACETAMINOPHE* Take 1 tablet by mouth twice * SIMVASTATIN 20 MG TABLET Take 1 tablet by mouth daily * WARFARIN 5 MG TABLET Take 0.5 tablets by mouth onc* TRAZODONE 50 MG TABLET TAKE 1 TABLET BY MOUTH DAILY* OMEPRAZOLE 20 MG CAPSULE,FRANCA* Take 1 capsule by mouth once * DIPHENHYDRAMINE 25 MG CAPSULE Take 1 capsule by mouth every* CYANOCOBALAMIN (VIT B-12) 1,0* Dissolve 1 tablet under the t* POLYETHYLENE GLYCOL (BULK) 10* 17 g once daily. HYDROCODONE 5 MG-ACETAMINOPHE* Take 1 tablet by mouth twice * Problem List As Of Date 09/13/2017 Noted Resolved Other specified disorder of penis [N48.89] INVALID FOR*11/12/2015 ALLERGIC RHINITIS NOS [J30.9] INVALID FOR* Coronary atherosclerosis [I25.10] INVALID FOR* ESOPHAGEAL REFLUX [K21.9] INVALID FOR* Type II or unspecified type diabetes mellitus w*INVALID FOR*11/14/2013 MIXED HYPERLIPIDEMIA [E78.2] INVALID FOR* BENIGN HYPERTENSION [I10] INVALID FOR* Other and unspecified hyperlipidemia [E78.5] 11/12/2015 Osteoarthrosis, generalized, involving multiple* Unspecified cardiovascular disease [I25.10] 11/12/2015 DIAPHRAGMATIC HERNIA [K44.9] More... Other and unspecified disc disorder of unspecif* 11/12/2015 More... 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] INVALID FOR*11/12/2015 Actinic skin damage [L57.8] INVALID FOR*11/12/2015 Solar Lentigines [L81.4] INVALID FOR*11/12/2015 Seborrheic Keratoses [L82.1] INVALID FOR*11/12/2015 Surgical Scars [L90.5] INVALID FOR*11/12/2015 Edema [R60.9] INVALID FOR*11/12/2015 Irritant contact dermatitis [L24.9] INVALID FOR*11/12/2015 Open wound(s) (multiple) of unspecified site(s)*INVALID FOR*08/29/2013 Postinflammatory skin changes: fading discolora*INVALID FOR*11/12/2015 Back pain [M54.9] INVALID FOR* Sciatica [M54.30] INVALID FOR* Lumbar disc displacement without myelopathy [M5*INVALID FOR* Lumbar facet arthropathy [M46.96] INVALID FOR* Lumbar spondylosis [M47.816] INVALID FOR* Lumbar stenosis [M48.061] INVALID FOR* Balanitis [N48.1] INVALID FOR*11/12/2015 Eczema intertrigo [L30.4] INVALID FOR*11/12/2015 Eczematous dermatitis [L30.9] INVALID FOR*11/12/2015 Fixed drug eruption [L27.1] INVALID FOR*11/12/2015 BPH (benign prostatic hyperplasia) [N40.0] INVALID FOR* CKD (chronic kidney disease) stage 3, GFR 30-59*INVALID FOR* Bradycardia [R00.1] INVALID FOR* 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 Paroxysmal atrial fibrillation (HCC) [I48.0] INVALID FOR* Status post placement of implantable loop recor*INVALID FOR* Sick sinus syndrome (HCC) [I49.5] INVALID FOR* Old WV (myocardial infarction) [I25.2] INVALID FOR* Acute diastolic CHF (congestive heart failure) *INVALID FOR* Complete heart block (HCC) [I44.2] INVALID FOR* More... Prediabetes [R73.03] INVALID FOR* Pacemaker [Z95.0] INVALID FOR* More... Encounter Status:Closed by SHAINA BANSAL LPN on 09/13/17 PROGRESS Observed: 09/13/2017 Status: COMPLETED Source: [place] 8:10 AM [facility] REPOSITORY HNO ID: [id number] Author: Shaina Bansal LPN Service: (none) Author Type: (none) Type: Progress Notes Filed: 09/13/2017 8:58 AM Note Text: Manual Readin/74 Pulse: 84 Reason for blood pressure check - Last BP elevated and Medication adjustment Patient is: Taking medication as prescribed Yes Took medication today Yes Experiencing side effects No Alert and oriented x 3 Is not a tobacco user. Recommendations Continue taking medications as prescribed Follow-up Yes as instructed Pt has been identified by name and birthdate: Yes Allergies reviewed: Yes Latex allergy: no. Medication - prescribed and OTC reviewed and updated: Yes Do you need any prescription refills prior to your next visit: No Health Maintenance: Reviewed and up to date PROTIME W/INR Collected: 09/06/2017 Status: F Source: [place] 8:14 AM [facility] REPOSITORY TYPE CODE TESTS RESULT OUT OF REFERENCE UNITS RANGE LAB L9200.1001 11.9-14.4 SEC High PROTIME ISTAT 24.5 Result Comment: Reference Range 11.9 - 14.4 LAB L9200.2000 Normal INR ISTAT 2.10 Result Comment: Critical Value > 3.5 Performed By: #### [id number] #### [facility] Point of Care [address] [place] [address] PROGRESS Observed: 08/30/2017 Status: COMPLETED Source: [place] 8:26 AM [facility] REPOSITORY HNO ID: [id number] Author: Ian Hall (PaElviC) Rivas Service: (none) Author Type: Physician Electrical Wiring Lineman Type: Progress Notes Filed: 08/30/2017 2:12 PM Note Text: 81 year old male for f/u the on rash and blood pressure. Lisinopril was discontinued as directed. Rash is completely resolved. No itching. Still has some reddish areas with dry skin. Saw contact centre supervisor recommended emollient. Tolerating blood pressure medication without complication. No lightheadedness or other symptoms. HISTORIES FAMILY HISTORY Problem Relation Age of Onset - Cancer Mother Lung cancer - Heart Father - Diabetes Brother 2 HALF BROTHERS - Coronary Artery Disease Brother CABG PAST MEDICAL HISTORY Diagnosis Date - Diaphragmatic hernia without mention of obstruction or gangrene Hiatal hernia - Diarrhea - Esophageal reflux - Generalized osteoarthrosis, unspecified site - Internal hemorrhoids without mention of complication - Other and unspecified disc disorder of unspecified region Intervertebral disc disorders - Other and unspecified hyperlipidemia - Personal history of malignant neoplasm of skin 01/17/2011 - Prediabetes Diabetes mellitus - Unspecified cardiovascular disease - 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 PAST SURGICAL HISTORY Procedure Laterality Date - COLONOSCOP W/ OR W/O BRSH SPEC 06/01/2013 Colonoscopy - COLONOSCOPY W/BX 02/22/06 - EGD W/O OR W/BRUSH/WASH 8/19/03 EGD - PAST SURGICAL HISTORY OF 1991 left foot surgery - PAST SURGICAL HISTORY OF bilateral mastoids - as an infant - REMV CATARACT EXTRACAP,INSERT LENS 2012 Cataract Extraction with PC IOL - REMV CATARACT EXTRACAP,INSERT LENS 2012 Cataract Extraction with PC IOL Social History Marital status: Spouse name: Years of education: Number of children: 2 Occupational History Occupation Employer Comment [employer] Social History Main Topics Smoking status: Former Smoker Packs/day: 0.00 Years: 0.00 Smokeless status: Never Used Comment: quit in 1988 Alcohol use: Yes Comment: socially Drug use: No ACTIVE PROBLEM LIST Allergic Rhinitis, Cause Unspecified Coronary Atherosclerosis Esophageal Reflux Mixed Hyperlipidemia Essential Hypertension, Benign Osteoarthrosis, Generalized, Involving Multiple Sites Diaphragmatic Hernia Without Mention of Obstruction Or Gangrene Insomnia, Unspecified B12 Deficiency Anemia Back Pain Sciatica 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) Lumbar Spondylosis Lumbar Stenosis Bph (Benign Prostatic Hyperplasia) Ckd (Chronic Kidney Disease) Stage 3, Gfr 30-59 Ml/Min Bradycardia Trifascicular Bundle Branch Block L-S Radiculopathy Psvt (Paroxysmal Supraventricular Tachycardia) (Hcc) Dependent Edema Chronic Anticoagulation Paroxysmal Atrial Fibrillation (Hcc) Status Post Placement of Implantable Loop Recorder Sick Sinus Syndrome (Hcc) Old WV (Myocardial Infarction) Acute Diastolic Chf (Congestive Heart Failure) (Hcc) Complete Heart Block (Hcc) Prediabetes Pacemaker Current Outpatient Prescriptions: cholecalciferol, Vitamin D3, (VITAMIN D3) 50,000 unit cap capsule Take 1 capsule by mouth once each week. HOLD 08/16/17 until rah clears Disp: 12 capsule Rfl: 3 losartan (COZAAR) 50 mg tablet Take 1 tablet by mouth once daily. Disp: 30 tablet Rfl: 2 triamcinolone acetonide (KENALOG) 0.1 % cream Apply 1 application to affected area three times daily. Apply sparingly to area for rash/itching. Disp: 60 g Rfl: 2 amLODIPine (NORVASC) 10 mg tablet Take 0.5 tablets by mouth once daily. Disp: 90 tablet Rfl: 3 hydrocortisone (PROCTOSOL HC) 2.5 % rectal cream Apply one application to hemorrhoids twice a day. Disp: 1 Tube Rfl: 3 clotrimazole-betamethasone (LOTRISONE) cream Apply 1 application to affected area twice daily. UNTIL CLEAR FOR UP TO 2-3 WEEKS Disp: 15 g Rfl: 1 HYDROcodone-acetaminophen (NORCO) 5-325 mg per tablet Take 1 tablet by mouth twice daily as needed for up to 30 days.Earliest Fill Date: 08/19/17 Disp: 180 tablet Rfl: 0 [START ON 09/18/2017] HYDROcodone-acetaminophen (NORCO) 5-325 mg per tablet Take 1 tablet by mouth twice daily as needed for up to 30 days.Earliest Fill Date: 09/18/17 Disp: 180 tablet Rfl: 0 simvastatin (ZOCOR) 20 mg tablet Take 1 tablet by mouth daily at bedtime. Disp: 90 tablet Rfl: 3 warfarin (COUMADIN) 5 mg tablet Take 0.5 tablets by mouth once daily. Disp: 30 tablet Rfl: 6 traZODone (DESYREL) 50 mg tablet TAKE 1 TABLET BY MOUTH DAILY AT BEDTIME NEEDED FOR SLEEP. Disp: 90 tablet Rfl: 1 omeprazole (PRILOSEC) 20 mg capsule Take 1 capsule by mouth once daily. Disp: 90 capsule Rfl: 3 bumetanide (BUMEX) 2 mg tablet Take 0.5 tablets by mouth once daily. Disp: 30 tablet Rfl: 6 diphenhydrAMINE (BENADRYL) 25 mg capsule Take 1 capsule by mouth every 6 hours as needed. Disp: Rfl: 0 Cyanocobalamin 1,000 mcg subl Dissolve 1 tablet under the tongue once daily. One tablet under tongue daily. Disp: Rfl: 0 polyethylene glycol, bulk, 100 % powd 17 g once daily. Disp: 527 g Rfl: 6 HYDROcodone-acetaminophen (NORCO) 5-325 mg per tablet Take 1 tablet by mouth twice daily as needed for up to 30 days.Earliest Fill Date: 07/20/17 Disp: 180 tablet Rfl: 0 No current facility-administered medications for this visit. There are no preventive care reminders to display for this patient. EXAM: BP 148/80 Pulse 77 Temp 36.8 ?C (98.2 ?F) (Tympanic) Resp 16 Wt 103.9 kg (229 lb) BMI 29.4 kg/m2 Pleasant older man in no acute distress. Alert and oriented all spheres. Normal affect and cognition. Speech normal. No deficits to learning or comprehension. Skin warm, dry, pink to lips and nailbeds. Normal turgor. Mild pink areason arms and back with dry skin. No lesions remain Respirations regular and unlabored. Extrem: no clubbing, cyanosis, edema. Extremities are warm and pink with prompt capillary refill. ASSESSMENT/PLAN: 1. Rash - ICD9: 782.1, ICD10: R21 (primary diagnosis) Resolved, likely from lisinopril 2. Hypertension, essential - ICD9: 401.9, ICD10: I10 - fair control - Continue current medication(s) - One more NV in 2 weeks. Ian Hathaway PA-C CNOV Observed: 08/30/2017 Status: COMPLETED Source: [place] 8:20 AM [facility] REPOSITORY Office Visit (FAMPWS) PEG BAEZ ([id number]) 1935 [facility] Date Time Provider Department 08/30/17 8:20 AM Ian HATHAWAY) FAMPWS During your visit today, we recorded the following information about you: Temperature Pulse Respiration Blood pressure 98.2 degrees 77/minute 16/minute 148/80 Weight 103.9 kg Ian Hathaway PA-C 08/30/2017 2:12 PM Signed 81 year old male for f/u the on rash and blood pressure. Lisinopril was discontinued as directed. Rash is completely resolved. No itching. Still has some reddish areas with dry skin. Saw contact centre supervisor recommended emollient. Tolerating blood pressure medication without complication. No lightheadedness or other symptoms. HISTORIES FAMILY HISTORY Problem Relation Age of Onset - Cancer Mother Lung cancer - Heart Father - Diabetes Brother 2 HALF BROTHERS - Coronary Artery Disease Brother CABG PAST MEDICAL HISTORY Diagnosis Date - Diaphragmatic hernia without mention of obstruction or gangrene Hiatal hernia - Diarrhea - Esophageal reflux - Generalized osteoarthrosis, unspecified site - Internal hemorrhoids without mention of complication - Other and unspecified disc disorder of unspecified region Intervertebral disc disorders - Other and unspecified hyperlipidemia - Personal history of malignant neoplasm of skin 01/17/2011 - Prediabetes Diabetes mellitus - Unspecified cardiovascular disease - 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 PAST SURGICAL HISTORY Procedure Laterality Date - [facility] Colonoscopy - COLONOSCOPY W/BX 02/22/06 - EGD W/O OR W/BRUSH/WASH 02/05/03 EGD - PAST SURGICAL HISTORY OF 1990 left foot surgery - PAST SURGICAL HISTORY OF bilateral mastoids - as an infant - REMV CATARACT EXTRACAP,INSERT LENS 2012 Cataract Extraction with PC IOL - REMV CATARACT EXTRACAP,INSERT LENS 2012 Cataract Extraction with PC IOL Social History Marital status: Spouse name: Years of education: Number of children: 2 Occupational History Occupation Employer Comment [employer] Social History Main Topics Smoking status: Former Smoker Packs/day: 0.00 Years: 0.00 Smokeless status: Never Used Comment: quit in 1988 Alcohol use: Yes Comment: socially Drug use: No ACTIVE PROBLEM LIST Allergic Rhinitis, Cause Unspecified Coronary Atherosclerosis Esophageal Reflux Mixed Hyperlipidemia Essential Hypertension, Benign Osteoarthrosis, Generalized, Involving Multiple Sites Diaphragmatic Hernia Without Mention of Obstruction Or Gangrene Insomnia, Unspecified B12 Deficiency Anemia Back Pain Sciatica 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) Lumbar Spondylosis Lumbar Stenosis Bph (Benign Prostatic Hyperplasia) Ckd (Chronic Kidney Disease) Stage 3, Gfr 30-59 Ml/Min Bradycardia Trifascicular Bundle Branch Block L-S Radiculopathy Psvt (Paroxysmal Supraventricular Tachycardia) (Hcc) Dependent Edema Chronic Anticoagulation Paroxysmal Atrial Fibrillation (Hcc) Status Post Placement of Implantable Loop Recorder Sick Sinus Syndrome (Hcc) Old WV (Myocardial Infarction) Acute Diastolic Chf (Congestive Heart Failure) ([facility]) Complete Heart Block (Hcc) Prediabetes Pacemaker Current Outpatient Prescriptions: cholecalciferol, Vitamin D3, (VITAMIN D3) 50,000 unit cap capsule Take 1 capsule by mouth once each week. HOLD 08/16/17 until rah clears Disp: 12 capsule Rfl: 3 losartan (COZAAR) 50 mg tablet Take 1 tablet by mouth once daily. Disp: 30 tablet Rfl: 2 triamcinolone acetonide (KENALOG) 0.1 % cream Apply 1 application to affected area three times daily. Apply sparingly to area for rash/itching. Disp: 60 g Rfl: 2 amLODIPine (NORVASC) 10 mg tablet Take 0.5 tablets by mouth once daily. Disp: 90 tablet Rfl: 3 hydrocortisone (PROCTOSOL HC) 2.5 % rectal cream Apply one application to hemorrhoids twice a day. Disp: 1 Tube Rfl: 3 clotrimazole-betamethasone (LOTRISONE) cream Apply 1 application to affected area twice daily. UNTIL CLEAR FOR UP TO 2-3 WEEKS Disp: 15 g Rfl: 1 HYDROcodone-acetaminophen (NORCO) 5-325 mg per tablet Take 1 tablet by mouth twice daily as needed for up to 30 days.Earliest Fill Date: 08/19/17 Disp: 180 tablet Rfl: 0 [START ON 09/18/2017] HYDROcodone-acetaminophen (NORCO) 5-325 mg per tablet Take 1 tablet by mouth twice daily as needed for up to 30 days.Earliest Fill Date: 09/18/17 Disp: 180 tablet Rfl: 0 simvastatin (ZOCOR) 20 mg tablet Take 1 tablet by mouth daily at bedtime. Disp: 90 tablet Rfl: 3 warfarin (COUMADIN) 5 mg tablet Take 0.5 tablets by mouth once daily. Disp: 30 tablet Rfl: 6 traZODone (DESYREL) 50 mg tablet TAKE 1 TABLET BY MOUTH DAILY AT BEDTIME NEEDED FOR SLEEP. Disp: 90 tablet Rfl: 1 omeprazole (PRILOSEC) 20 mg capsule Take 1 capsule by mouth once daily. Disp: 90 capsule Rfl: 3 bumetanide (BUMEX) 2 mg tablet Take 0.5 tablets by mouth once daily. Disp: 30 tablet Rfl: 6 diphenhydrAMINE (BENADRYL) 25 mg capsule Take 1 capsule by mouth every 6 hours as needed. Disp: Rfl: 0 Cyanocobalamin 1,000 mcg subl Dissolve 1 tablet under the tongue once daily. One tablet under tongue daily. Disp: Rfl: 0 polyethylene glycol, bulk, 100 % powd 17 g once daily. Disp: 527 g Rfl: 6 HYDROcodone-acetaminophen (NORCO) 5-325 mg per tablet Take 1 tablet by mouth twice daily as needed for up to 30 days.Earliest Fill Date: 07/20/17 Disp: 180 tablet Rfl: 0 No current facility-administered medications for this visit. There are no preventive care reminders to display for this patient. EXAM: BP 148/80 Pulse 77 Temp 36.8 ?C (98.2 ?F) (Tympanic) Resp 16 Wt 103.9 kg (229 lb) BMI 29.4 kg/m2 Pleasant older man in no acute distress. Alert and oriented all spheres. Normal affect and cognition. Speech normal. No deficits to learning or comprehension. Skin warm, dry, pink to lips and nailbeds. Normal turgor. Mild pink areason arms and back with dry skin. No lesions remain Respirations regular and unlabored. Extrem: no clubbing, cyanosis, edema. Extremities are warm and pink with prompt capillary refill. ASSESSMENT/PLAN: 1. Rash - ICD9: 782.1, ICD10: R21 (primary diagnosis) Resolved, likely from lisinopril 2. Hypertension, essential - ICD9: 401.9, ICD10: I10 - fair control - Continue current medication(s) - One more NV in 2 weeks. Ian Hathaway PA-C Referring Provider: SELF [[id number]] Allergies As of Date: 08/30/2017 Noted Allergy Reaction CALAN (VERAPAMIL HCL) 05/18/2005 DOXAZOSIN 08/18/2007 2 - Rash FLOMAX (TAMSULOSIN HCL) 05/18/2005 HCTZ (HYDROCHLOROTHIAZIDE) 07/27/2007 2 - Rash INDERAL (PROPRANOLOL HCL) 05/18/2005 LIPITOR (ATORVASTATIN CALCIUM) 05/18/2005 NIASPAN (NIACIN (ANTIHYPERLIPIDEM*05/18/2005 QUININE 05/18/2005 Date Reviewed: 08/30/2017 Reviewed by: Callie Schuster Certified Driver Examiner - Fully Assessed Reason for Visit: Recheck [92] Cmt: 2 week BP med check Primary Visit Diagnosis:Rash [R21] Other Visit Diagnosis:Hypertension, essential [I10] Prescriptions as of 08/30/2017 Sig: CHOLECALCIFEROL (VITAMIN D3) * Take 1 capsule by mouth once * LOSARTAN 50 MG TABLET Take 1 tablet by mouth once d* TRIAMCINOLONE ACETONIDE 0.1 %* Apply 1 application to affect* AMLODIPINE 10 MG TABLET Take 0.5 tablets by mouth onc* HYDROCORTISONE 2.5 % TOPICAL * Apply one application to hemo* CLOTRIMAZOLE-BETAMETHASONE 1 * Apply 1 application to affect* HYDROCODONE 5 MG-ACETAMINOPHE* Take 1 tablet by mouth twice * HYDROCODONE 5 MG-ACETAMINOPHE* Take 1 tablet by mouth twice * SIMVASTATIN 20 MG TABLET Take 1 tablet by mouth daily * WARFARIN 5 MG TABLET Take 0.5 tablets by mouth onc* TRAZODONE 50 MG TABLET TAKE 1 TABLET BY MOUTH DAILY* OMEPRAZOLE 20 MG CAPSULE,FRANCA* Take 1 capsule by mouth once * BUMETANIDE 2 MG TABLET Take 0.5 tablets by mouth onc* DIPHENHYDRAMINE 25 MG CAPSULE Take 1 capsule by mouth every* CYANOCOBALAMIN (VIT B-12) 1,0* Dissolve 1 tablet under the t* POLYETHYLENE GLYCOL (BULK) 10* 17 g once daily. HYDROCODONE 5 MG-ACETAMINOPHE* Take 1 tablet by mouth twice * Problem List As Of Date 08/30/2017 Noted Resolved Other specified disorder of penis [N48.89] INVALID FOR*11/12/2015 ALLERGIC RHINITIS NOS [J30.9] INVALID FOR* Coronary atherosclerosis [I25.10] INVALID FOR* ESOPHAGEAL REFLUX [K21.9] INVALID FOR* Type II or unspecified type diabetes mellitus w*INVALID FOR*11/14/2013 MIXED HYPERLIPIDEMIA [E78.2] INVALID FOR* BENIGN HYPERTENSION [I10] INVALID FOR* Other and unspecified hyperlipidemia [E78.5] 11/12/2015 Osteoarthrosis, generalized, involving multiple* Unspecified cardiovascular disease [I25.10] 11/12/2015 DIAPHRAGMATIC HERNIA [K44.9] More... Other and unspecified disc disorder of unspecif* 11/12/2015 More... 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] INVALID FOR*11/12/2015 Actinic skin damage [L57.8] INVALID FOR*11/12/2015 Solar Lentigines [L81.4] INVALID FOR*11/12/2015 Seborrheic Keratoses [L82.1] INVALID FOR*11/12/2015 Surgical Scars [L90.5] INVALID FOR*11/12/2015 Edema [R60.9] INVALID FOR*11/12/2015 Irritant contact dermatitis [L24.9] INVALID FOR*11/12/2015 Open wound(s) (multiple) of unspecified site(s)*INVALID FOR*08/29/2013 Postinflammatory skin changes: fading discolora*INVALID FOR*11/12/2015 Back pain [M54.9] INVALID FOR* Sciatica [M54.30] INVALID FOR* Lumbar disc displacement without myelopathy [M5*INVALID FOR* Lumbar facet arthropathy [M46.96] INVALID FOR* Lumbar spondylosis [M47.816] INVALID FOR* Lumbar stenosis [M48.061] INVALID FOR* Balanitis [N48.1] INVALID FOR*11/12/2015 Eczema intertrigo [L30.4] INVALID FOR*11/12/2015 Eczematous dermatitis [L30.9] INVALID FOR*11/12/2015 Fixed drug eruption [L27.1] INVALID FOR*11/12/2015 BPH (benign prostatic hyperplasia) [N40.0] INVALID FOR* CKD (chronic kidney disease) stage 3, GFR 30-59*INVALID FOR* Bradycardia [R00.1] INVALID FOR* 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 Paroxysmal atrial fibrillation (HCC) [I48.0] INVALID FOR* Status post placement of implantable loop recor*INVALID FOR* Sick sinus syndrome (HCC) [I49.5] INVALID FOR* Old WV (myocardial infarction) [I25.2] INVALID FOR* Acute diastolic CHF (congestive heart failure) *INVALID FOR* Complete heart block (HCC) [I44.2] INVALID FOR* More... Prediabetes [R73.03] INVALID FOR* Pacemaker [Z95.0] INVALID FOR* More... Disposition: Return in about 2 weeks (around 09/13/2017). Follow-up and Disposition History Recorded Encounter Status:Closed by Ian HATHAWAY PA-C on 08/30/17 PROTIME W/INR Collected: 08/24/2017 Status: F Source: SUSAN FINGERSTICK 8:16 AM [facility] REPOSITORY TYPE CODE TESTS RESULT OUT OF REFERENCE UNITS RANGE LAB L9200.1001 11.9-14.4 SEC High PROTIME ISTAT 36.2 Result Comment: Reference Range 11.9 - 14.4 LAB L9200.2000 Normal INR ISTAT 3.20 Result Comment: Critical Value > 3.5 Performed By: #### [id number] #### [facility] Point of Care [address] [place] [address] CARDIOLOGY VISIT Observed: 08/18/2017 Status: F Source: [place] REPORT 12:42 PM [facility] REPOSITORY [facility] [address] [place] [address] OFFICE VISIT Date of Service: 08/18/17 MR#: [id number] Acct: [id number] Name: PEG BAEZ Rep #: [id number] : 1935 Provider: Maria Luisa Santiago Age/Sex: 81/M Location: [facility] Status: Signed HPI HPI Details: PEG BAEZ, is a 81 M who presents to the office today for a cardiovascular follow-up. He established with us following a hospital stay in January 2017. 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 From a cardiac standpoint, patient is doing well. He feels he is less fatigued than prior to his PPM. He does not have any chest discomfort/heaviness/tightness. His exercise tolerance is stable for his age. He does not have any worsening symptoms of shortness of breath. He denies any PND. He does not have any orthopnea. He does not have any symptoms of congestive heart failure. He does not have any palpitations that he is aware of. He does not have any lightheadedness or dizziness. He does not have any near-syncope or syncope. He does have any lower extremity edema this is chronic from an injury. He does not have any symptoms of claudication. Intake Vital Signs08/18/17 Height 6 ft 2 in 08/18/17 Weight: 232 lb 08/18/17 Body Mass Index (BMI) 29.7 08/18/17 Blood Pressure 140/66 08/18/17 Blood Pressure Location Lt brachial Intake Visit Reasons: 6 M FU Customer Specialist Required: No Accompanied by: None Is patient in pain?: No Allergies lisinopril Allergy (Severe, Verified 08/18/17 09:59) rash atorvastatin [From Lipitor] Allergy (Verified 08/18/17 09:59) Unknown doxazosin Allergy (Verified 08/18/17 09:59) Unknown hydrochlorothiazide Allergy (Verified 08/18/17 09:59) Unknown niacin [From Niaspan Extended-Release] Allergy (Verified 08/18/17 09:59) Unknown propranolol [From Inderal LA] Allergy (Verified 08/18/17 09:59) Unknown quinine Allergy (Verified 08/18/17 09:59) Unknown tamsulosin [From Flomax] Allergy (Verified 08/18/17 09:56) Unknown verapamil [From Calan] Allergy (Verified 08/18/17 09:56) Unknown Medications Bumetanide [Bumex] 1 mg PO DAILY 01/24/17 [History Confirmed 08/18/17] Cyanocobalamin (Vitamin B-12) [Vitamin B-12] 1,000 mcg SL DAILY 01/24/17 [History Confirmed 08/18/17] Hydrocodone/Acetaminophen [Faxon 5-325 Tablet] 1 tab PO BID PRN 01/24/17 [History Confirmed 08/18/17] Hydrocortisone [Procto-Med Hc] 30 gm RC BID PRN PRN 01/24/17 [History Confirmed 08/18/17] Omeprazole [Prilosec] 20 mg PO DAILY 01/24/17 [History Confirmed 08/18/17] Polyethylene Glycol 3350 [Miralax] 17 gm PO DAILY PRN PRN 01/24/17 [History Confirmed 08/18/17] Simvastatin [Zocor] 20 mg PO QHS 01/24/17 [History Confirmed 08/18/17] Trazodone HCl [Desyrel] 50 mg PO QHS PRN PRN 01/24/17 [History Confirmed 08/18/17] Warfarin [Coumadin (PBKC)] 2.5 mg PO DAILY 01/24/17 [History Confirmed 08/18/17] amlodipine 5 mg tablet 5 mg PO QDAY 07/25/17 [History Confirmed 08/18/17] losartan 50 mg tablet PO 30 Days #30 08/18/17 [History Confirmed 03/01/18] Ejection fraction %: 45 to 49 [facility] Medical History Atrioventricular block, Mobitz type 2 (Chronic) Atrioventricular block, complete (Chronic) skilled nursing (current) use of anticoagulants (Chronic) Bradycardia (Chronic) Tachy-miller syndrome (Chronic) Atrial fibrillation (Chronic) Hypertension (Chronic) Congestive heart failure (Chronic) Myocardial infarct, 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) Diabetes mellitus, type II (Chronic) Surgical History Cardiac pacemaker in situ (Chronic) Status post placement of implantable loop recorder (Chronic) Family History Father CAD (coronary artery disease) Brother CAD (coronary artery disease) Social History Smoking Status: Former smoker how long ago did patient quit smokin alcohol intake: current alcohol intake frequency: a few times a week Alcohol type: hard liquor substance use type: does not use caffeine: Yes Type: coffee Number of servings: 3 what type of physical activity do you participate in: none seatbelt use: always do you feel safe at home: Yes ROS Const Const: Negative for weakness, fatigue, fever(s) or headache(s) Eyes Eyes: Negative for blind spots, loss of peripheral vision or transient loss of vision ENT ENT: Negative for headache(s), dizziness, tinnitus or Nosebleed/epistaxis Cardio Chest Pain: No Palpitations: No Edema: Bilateral Muscle aches with walking: None Resp Respiratory: Negative for SOB with activity, SOB at rest, SOB orthopnea\SOB lying down or Cough GI GI: Negative nausea, vomiting, heartburn or vomiting blood/hematemesis : Negative for hematuria Musc Musc: Negative for muscle aches/ myalgia Neuro Neuro: Negative for weakness, headache(s), dizziness, near syncope, syncope, lightheadedness or orthostatic symptoms Aleksandar Hematologic/Lymphatic: Negative for easy bleeding Endo Endo: Negative for fatigue Cardiology Exam Const Appearance: cooperative, no acute distress and well developed Orientation: alert, awake and oriented x3 Head Head: normocephalic and atraumatic Mouth: moist mucous membranes Eyes General: appearance normal, both eyes and all related structures Conjunctivae: conjunctivae normal Pupils: PERRL EOM: EOM intact bilaterally Neck Neck: normal visual inspection, no lymphadenopathy and no JVD Carotids: Negative bruit Neck Mass: Negative Neck mass Chest Chest inspection: normal inspection of the chest, symmetric chest movement and Pacemaker/ICD Yes left pectoral incision Auscultation: Bilateral: Clear to Auscultation Cardio Palpation: normal PMI Rate: regular rate Rhythm: regular rhythm Heart sounds: S1 normal, S2 normal and murmur; negative rub or gallop Murmur: Grade 1/6, soft and mid diastolic GI GI: normal to inspection, soft, no hepatosplenomegaly and bowel sounds present; negative tender Neuro General: alert, awake, oriented x3, CN's II-XI intact bilaterally and moves all extremities Extremities Pulses: Normal: Right Posterior Tibial Pulse, Left Posterior Tibial Pulse, Right Radial Pulse, Left Radial Pulse Lower Extremity Edema: None: Bilateral Psych Psychological: normal affect Supplemental Info Echocardiogram in 2017 demonstrated normal LV size, mild concentric LVH with an estimated ejection fraction of 47%. Mild segmental systolic dysfunction. Mild tricuspid insufficiency. Moderate focal aortic valve calcification. Assessment AND Plan 1. Essential hypertension I10 Plan - KERRIE Wong Blood pressure is well controlled on current medications, we do not recommend any changes at this time. 2. Paroxysmal atrial fibrillation I48.0 Plan - KERRIE Wong We will continue to monitor through pacemaker interrogations. He is anticoagulated with a therapeutic INR goal of 2-3. 3. Pure hypercholesterolemia E78.00; E78.0 Plan - KERRIE Wong His lipids are being monitored closely by his primary care doctor. Will not make any changes 4. Cardiac pacemaker in situ Z95.0 PPM insertion 01/26/2017 Plan - KERRIE Wong Pacemaker is functioning appropriately. We will continue to monitor at routine scheduled pacemaker interrogations. Plan Detail Additional Comments - KERRIE Wong The above patient was discussed with Dr. Plascencia, he agrees with plan of care. Thank you for allowing us to participate in patient's plan of care, if you have any questions please do not hesitate to call. This note was generated using a voice recognition system and there may be incorrect words, spelling or punctuation errors that were not noted when reviewing the office note prior to saving. 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) Coding Level of Care Code Off vis,est,level 3 Diagnoses Essential hypertension I10 Hypertension type: essential hypertension Paroxysmal atrial fibrillation I48.0 Atrial fibrillation type: paroxysmal Pure hypercholesterolemia E78.00; E78.0 Hyperlipidemia type: pure hypercholesterolemia Cardiac pacemaker in situ Z95.0 Coding Level of Care Code Off vis,est,level 3 Diagnoses Essential hypertension I10 Hypertension type: essential hypertension Paroxysmal atrial fibrillation I48.0 Atrial fibrillation type: paroxysmal Pure hypercholesterolemia E78.00; E78.0 Hyperlipidemia type: pure hypercholesterolemia Cardiac pacemaker in situ Z95.0 08/18/17 1031 <Electronically signed by Maria Luisa Santiago PA> Date Maria Luisa MÉNDEZ 08/18/17 1241<Electronically signed by Loyd Plascencia MD> Cosigner Signature: Date (if applicable) Loyd Plascencia MD CC: French Pimentel MD PROGRESS Observed: 08/16/2017 Status: COMPLETED Source: [place] 8:29 AM [facility] REPOSITORY O ID: [id number] Author: Ian Hall (Kerrie-C) Rivas Service: (none) Author Type: Physician Electrical Wiring Lineman Type: Progress Notes Filed: 08/16/2017 8:44 AM Note Text: 81 year old male with c/o persistent itch and rash: clearing on arms but still on back following extended taper. HISTORIES FAMILY HISTORY Problem Relation Age of Onset - Cancer Mother Lung cancer - Heart Father - Diabetes Brother 2 HALF BROTHERS - Coronary Artery Disease Brother CABG PAST MEDICAL HISTORY Diagnosis Date - Diaphragmatic hernia without mention of obstruction or gangrene Hiatal hernia - Diarrhea - Esophageal reflux - Generalized osteoarthrosis, unspecified site - Internal hemorrhoids without mention of complication - Other and unspecified disc disorder of unspecified region Intervertebral disc disorders - Other and unspecified hyperlipidemia - Personal history of malignant neoplasm of skin 01/17/2011 - Prediabetes Diabetes mellitus - Unspecified cardiovascular disease - 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 PAST SURGICAL HISTORY Procedure Laterality Date - COLONOSCOP W/ OR W/O [facility] SPEC 06/01/2013 Colonoscopy - COLONOSCOPY W/BX 02/22/06 - EGD W/O OR W/BRUSH/WASH 02/05/03 EGD - PAST SURGICAL HISTORY OF 1990 left foot surgery - PAST SURGICAL HISTORY OF bilateral mastoids - as an - REMV CATARACT EXTRACAP,INSERT LENS 2012 Cataract Extraction with PC IOL - REMV CATARACT EXTRACAP,INSERT LENS 2012 Cataract Extraction with PC IOL Social History Marital status: Spouse name: Years of education: Number of children: 2 Occupational History Occupation Employer Comment [employer] Social History Main Topics Smoking status: Former Smoker Packs/day: 0.00 Years: 0.00 Smokeless status: Never Used Comment: quit in 1988 Alcohol use: Yes Comment: socially Drug use: No ACTIVE PROBLEM LIST Allergic Rhinitis, Cause Unspecified Coronary Atherosclerosis Esophageal Reflux Mixed Hyperlipidemia Essential Hypertension, Benign Osteoarthrosis, Generalized, Involving Multiple Sites Diaphragmatic Hernia Without Mention of Obstruction Or Gangrene Insomnia, Unspecified B12 Deficiency Anemia Back Pain Sciatica 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) Lumbar Spondylosis Lumbar Stenosis Bph (Benign Prostatic Hyperplasia) Ckd (Chronic Kidney Disease) Stage 3, Gfr 30-59 Ml/Min Bradycardia Trifascicular Bundle Branch Block L-S Radiculopathy Psvt (Paroxysmal Supraventricular Tachycardia) ([facility]) Dependent Edema Chronic Anticoagulation Paroxysmal Atrial Fibrillation ([facility]) Status Post Placement of Implantable Loop Recorder Sick Sinus Syndrome ([facility]) Old WV (Myocardial Infarction) Acute Diastolic Chf (Congestive Heart Failure) ([facility]) Complete Heart Block (Hcc) Prediabetes Pacemaker Current Outpatient Prescriptions: triamcinolone acetonide (KENALOG) 0.1 % cream Apply 1 application to affected area three times daily. Apply sparingly to area for rash/itching. Disp: 60 g Rfl: 2 amLODIPine (NORVASC) 10 mg tablet Take 0.5 tablets by mouth once daily. Disp: 90 tablet Rfl: 3 lisinopril (PRINIVIL) 20 mg tablet Take 1 tablet by mouth once daily. Disp: 30 tablet Rfl: 2 hydrocortisone (PROCTOSOL HC) 2.5 % rectal cream Apply one application to hemorrhoids twice a day. Disp: 1 Tube Rfl: 3 HYDROcodone-acetaminophen (NORCO) 5-325 mg per tablet Take 1 tablet by mouth twice daily as needed for up to 30 days.Earliest Fill Date: 07/20/17 Disp: 180 tablet Rfl: 0 clotrimazole-betamethasone (LOTRISONE) cream Apply 1 application to affected area twice daily. UNTIL CLEAR FOR UP TO 2-3 WEEKS Disp: 15 g Rfl: 1 simvastatin (ZOCOR) 20 mg tablet Take 1 tablet by mouth daily at bedtime. Disp: 90 tablet Rfl: 3 cholecalciferol, Vitamin D3, (VITAMIN D3) 50,000 unit cap capsule Take 1 capsule by mouth once each week. Disp: 12 capsule Rfl: 3 warfarin (COUMADIN) 5 mg tablet Take 0.5 tablets by mouth once daily. Disp: 30 tablet Rfl: 6 traZODone (DESYREL) 50 mg tablet TAKE 1 TABLET BY MOUTH DAILY AT BEDTIME NEEDED FOR SLEEP. Disp: 90 tablet Rfl: 1 omeprazole (PRILOSEC) 20 mg capsule Take 1 capsule by mouth once daily. Disp: 90 capsule Rfl: 3 bumetanide (BUMEX) 2 mg tablet Take 0.5 tablets by mouth once daily. Disp: 30 tablet Rfl: 6 diphenhydrAMINE (BENADRYL) 25 mg capsule Take 1 capsule by mouth every 6 hours as needed. Disp: Rfl: 0 Cyanocobalamin 1,000 mcg subl Dissolve 1 tablet under the tongue once daily. One tablet under tongue daily. Disp: Rfl: 0 polyethylene glycol, bulk, 100 % powd 17 g once daily. Disp: 527 g Rfl: 6 [START ON 08/19/2017] HYDROcodone-acetaminophen (NORCO) 5-325 mg per tablet Take 1 tablet by mouth twice daily as needed for up to 30 days.Earliest Fill Date: 08/19/17 Disp: 180 tablet Rfl: 0 [START ON 09/18/2017] HYDROcodone-acetaminophen (NORCO) 5-325 mg per tablet Take 1 tablet by mouth twice daily as needed for up to 30 days.Earliest Fill Date: 09/18/17 Disp: 180 tablet Rfl: 0 No current facility-administered medications for this visit. There are no preventive care reminders to display for this patient. EXAM: BP 162/66 Pulse 64 Temp 36.7 ?C (98 ?F) (Tympanic) Resp 16 Wt 103.9 kg (229 lb) BMI 29.4 kg/m2 Last 3 Encounter BP Readings: Date: BP: 08/16/2017 162/66 08/04/2017 150/82 07/31/2017 164/76 Pleasant older male in no acute distress. Alert and oriented all spheres. Normal affect and cognition. Speech normal. No deficits to learning or comprehension. Skin warm, dry, pink to lips and nailbeds. Normal turgor. Morbilliform rash on back. Rash on arms better. Respirations regular and unlabored. Chest CTA. HRRR without murmur or gallop. Extrem: no clubbing, cyanosis, edema. Extremities are warm and pink with prompt capillary refill. ASSESSMENT/PLAN: 1. Rash - ICD9: 782.1, ICD10: R21 (primary diagnosis) Stop lisinopril and Vit D due rash. If improves consider restart as trial. Feels he can manage itch without steroids. 2. Low vitamin D level - ICD9: 268.9, ICD10: E55.9 Holding. 15minutes in direct light daily as much as possible. - CHOLECALCIFEROL (VITAMIN D3) 50,000 UNIT CAPSULE 3. Essential hypertension, benign - ICD9: 401.1, ICD10: I10 - poor control - Add losartan(Cozaar) - Recommended regular aerobic exercise. - Recommend home blood pressure monitoring, to bring results in on next visit - Goal of BP <130/80 - recheck in 2 weeks. Ian Hathaway PA-C PROTIME W/INR Collected: 08/10/2017 Status: F Source: [place] 9:55 AM [facility] REPOSITORY TYPE CODE TESTS RESULT OUT OF REFERENCE UNITS RANGE LAB L9200.1001 11.9-14.4 SEC High PROTIME ISTAT 32.1 Result Comment: Reference Range 11.9 - 14.4 LAB L9200.2000 Normal INR ISTAT 2.80 Result Comment: Critical Value > 3.5 Performed By: #### [id number] #### [facility] Point of Care [address] [place], [place] [address] PROTIME W/INR Collected: 08/04/2017 Status: F Source: SUSAN FINGERSTICK 9:32 AM [facility] REPOSITORY TYPE CODE TESTS RESULT OUT OF REFERENCE UNITS RANGE LAB L9200.1001 11.9-14.4 SEC High PROTIME ISTAT 29.4 Result Comment: Reference Range 11.9 - 14.4 LAB L9200.2000 Normal INR ISTAT 2.60 Result Comment: Critical Value > 3.5 Performed By: #### [id number] #### [facility] Point of Care [address] [place] [address] PROGRESS Observed: 08/04/2017 Status: COMPLETED Source: [place] 9:[address] [facility] REPOSITORY HNO ID: [id number] Author: Ian Hall (Andria) Rivas Service: (none) Author Type: Physician Electrical Wiring Lineman Type: Progress Notes Filed: 08/04/2017 3:09 PM Note Text: 81 year old male with c/o rash over last few weeks. Started breaking out on arms and spots on legs over last few weeks. Went to . Was started on prednisone 20mg x 4 days. Went back last Tuesday: given 40mg x 3 days. Did cause rash to fade temporarily. Rash comes and goes. Feels itching on legs, little dots. No change in laundry,products, soaps, new meds. recently increase in Lisinopril. Taking Benadryl at HS x 20 years. No new clothes. No exposure to irritants. Grandson visited. Has rash about 3 weeks ago. HISTORIES FAMILY HISTORY Problem Relation Age of Onset - Cancer Mother Lung cancer - Heart Father - Diabetes Brother 2 HALF BROTHERS - Coronary Artery Disease Brother CABG PAST MEDICAL HISTORY Diagnosis Date - Diaphragmatic hernia without mention of obstruction or gangrene Hiatal hernia - Diarrhea - Esophageal reflux - Generalized osteoarthrosis, unspecified site - Internal hemorrhoids without mention of complication - Other and unspecified disc disorder of unspecified region Intervertebral disc disorders - Other and unspecified hyperlipidemia - Personal history of malignant neoplasm of skin 01/17/2011 - Prediabetes Diabetes mellitus - Unspecified cardiovascular disease - 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 PAST SURGICAL HISTORY Procedure Laterality Date - COLONOSCOP W/ OR W/O [facility] SPEC 06/01/2013 Colonoscopy - COLONOSCOPY W/BX 02/22/06 - EGD W/O OR W/BRUSH/WASH 02/05/03 EGD - PAST SURGICAL HISTORY OF 1990 left foot surgery - PAST SURGICAL HISTORY OF bilateral mastoids - as an - REMV CATARACT EXTRACAP,INSERT LENS 2012 Cataract Extraction with PC IOL - REMV CATARACT EXTRACAP,INSERT LENS 2012 Cataract Extraction with PC IOL Social History Marital status: Spouse name: Years of education: Number of children: 2 Occupational History Occupation Employer Comment [employer] Social History Main Topics Smoking status: Former Smoker Packs/day: 0.00 Years: 0.00 Smokeless status: Never Used Comment: quit in 1988 Alcohol use: Yes Comment: socially Drug use: No ACTIVE PROBLEM LIST Allergic Rhinitis, Cause Unspecified Coronary Atherosclerosis Esophageal Reflux Mixed Hyperlipidemia Essential Hypertension, Benign Osteoarthrosis, Generalized, Involving Multiple Sites Diaphragmatic Hernia Without Mention of Obstruction Or Gangrene Insomnia, Unspecified B12 Deficiency Anemia Back Pain Sciatica 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) Lumbar Spondylosis Lumbar Stenosis Bph (Benign Prostatic Hyperplasia) Ckd (Chronic Kidney Disease) Stage 3, Gfr 30-59 Ml/Min Bradycardia Trifascicular Bundle Branch Block L-S Radiculopathy Psvt (Paroxysmal Supraventricular Tachycardia) ([facility]) Dependent Edema Chronic Anticoagulation Paroxysmal Atrial Fibrillation (Hcc) Status Post Placement of Implantable Loop Recorder Sick Sinus Syndrome ([facility]) [place] (Myocardial Infarction) Acute Diastolic Chf (Congestive Heart Failure) ([facility]) Complete Heart Block ([facility]) Prediabetes Pacemaker Current Outpatient Prescriptions: triamcinolone acetonide (KENALOG) 0.1 % cream Apply 1 application to affected area three times daily. Apply sparingly to area for rash/itching. Disp: 60 g Rfl: 0 amLODIPine (NORVASC) 10 mg tablet Take 0.5 tablets by mouth once daily. Disp: 90 tablet Rfl: 3 lisinopril (PRINIVIL) 20 mg tablet Take 1 tablet by mouth once daily. Disp: 30 tablet Rfl: 2 hydrocortisone (PROCTOSOL HC) 2.5 % rectal cream Apply one application to hemorrhoids twice a day. Disp: 1 Tube Rfl: 3 HYDROcodone-acetaminophen (NORCO) 5-325 mg per tablet Take 1 tablet by mouth twice daily as needed for up to 30 days.Earliest Fill Date: 07/20/17 Disp: 180 tablet Rfl: 0 clotrimazole-betamethasone (LOTRISONE) cream Apply 1 application to affected area twice daily. UNTIL CLEAR FOR UP TO 2-3 WEEKS Disp: 15 g Rfl: 1 simvastatin (ZOCOR) 20 mg tablet Take 1 tablet by mouth daily at bedtime. Disp: 90 tablet Rfl: 3 cholecalciferol, Vitamin D3, (VITAMIN D3) 50,000 unit cap capsule Take 1 capsule by mouth once each week. Disp: 12 capsule Rfl: 3 warfarin (COUMADIN) 5 mg tablet Take 0.5 tablets by mouth once daily. Disp: 30 tablet Rfl: 6 traZODone (DESYREL) 50 mg tablet TAKE 1 TABLET BY MOUTH DAILY AT BEDTIME NEEDED FOR SLEEP. Disp: 90 tablet Rfl: 1 omeprazole (PRILOSEC) 20 mg capsule Take 1 capsule by mouth once daily. Disp: 90 capsule Rfl: 3 bumetanide (BUMEX) 2 mg tablet Take 0.5 tablets by mouth once daily. Disp: 30 tablet Rfl: 6 diphenhydrAMINE (BENADRYL) 25 mg capsule Take 1 capsule by mouth every 6 hours as needed. Disp: Rfl: 0 Cyanocobalamin 1,000 mcg subl Dissolve 1 tablet under the tongue once daily. One tablet under tongue daily. Disp: Rfl: 0 polyethylene glycol, bulk, 100 % powd 17 g once daily. Disp: 527 g Rfl: 6 [START ON 08/19/2017] HYDROcodone-acetaminophen (NORCO) 5-325 mg per tablet Take 1 tablet by mouth twice daily as needed for up to 30 days.Earliest Fill Date: 08/19/17 Disp: 180 tablet Rfl: 0 [START ON 09/18/2017] HYDROcodone-acetaminophen (NORCO) 5-325 mg per tablet Take 1 tablet by mouth twice daily as needed for up to 30 days.Earliest Fill Date: 09/18/17 Disp: 180 tablet Rfl: 0 No current facility-administered medications for this visit. There are no preventive care reminders to display for this patient. EXAM: BP 166/80 Pulse 64 Temp 36.9 ?C (98.5 ?F) (Tympanic) Resp 16 Wt 102.1 kg (225 lb) BMI 28.89 kg/m2 150/82 Pleasant adult man in no acute distress. Alert and oriented all spheres. Normal affect and cognition. Speech normal. No deficits to learning or comprehension. Skin warm, dry, pink to lips and nailbeds. Normal turgor. Has blotchy red areas on upper back and shoulder, slightly palpable, smaller area on forearms. Not clear wheals. Tiny pink spots on upper thighs. None on face. Respirations regular and unlabored. Chest CTA. HRRR without murmur or gallop. Extrem: no clubbing, cyanosis, edema. Extremities are warm and pink with prompt capillary refill. ASSESSMENT/PLAN: 1. Rash - ICD9: 782.1, ICD10: R21 Trial prednisone taper longer. Unclear cause. Worrisome for increase in lisinopril. - TRIAMCINOLONE ACETONIDE 0.1 % TOPICAL CREAM - PREDNISONE 10 MG TABLET 2. Uncontrolled hypertension - ICD9: 401.9, ICD10: I10 - poor control Suspect partly r/t to steroids and itching. recehck in 2 weeks. Ian Hathaway PA-C PROGRESS Observed: 07/31/2017 Status: COMPLETED Source: [place] 11:32 AM [facility] REPOSITORY HNO ID: [id number] Author: Chacha Coker) Rambo Service: (none) Author Type: Physician Electrical Wiring Lineman Type: Progress Notes Filed: 07/31/2017 11:37 AM Note Text: HPI Pt presents with a rash to his arms for A week. He was here and placed on prednisone for 4 days. He states it helped minimally but he is still itching. No new soaps or detergents. No new lotions. No new medications. No swelling of face or mouth. No trouble breathing. Review of Systems Constitutional: Negative. HENT: Negative. Eyes: Negative. Respiratory: Negative. Cardiovascular: Negative. Skin: Positive for itching and rash. All other systems reviewed and are negative. 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 Take daily with food. Disp: 4 tablet Rfl: 0 amLODIPine (NORVASC) 10 mg tablet Take 0.5 tablets by mouth once daily. Disp: 90 tablet Rfl: 3 lisinopril (PRINIVIL) 20 mg tablet Take 1 tablet by mouth once daily. Disp: 30 tablet Rfl: 2 hydrocortisone (PROCTOSOL HC) 2.5 % rectal cream Apply one application to hemorrhoids twice a day. Disp: 1 Tube Rfl: 3 HYDROcodone-acetaminophen (NORCO) 5-325 mg per tablet Take 1 tablet by mouth twice daily as needed for up to 30 days.Earliest Fill Date: 07/20/17 Disp: 180 tablet Rfl: 0 clotrimazole-betamethasone (LOTRISONE) cream Apply 1 application to affected area twice daily. UNTIL CLEAR FOR UP TO 2-3 WEEKS Disp: 15 g Rfl: 1 [START ON 08/19/2017] HYDROcodone-acetaminophen (NORCO) 5-325 mg per tablet Take 1 tablet by mouth twice daily as needed for up to 30 days.Earliest Fill Date: 08/19/17 Disp: 180 tablet Rfl: 0 [START ON 09/18/2017] HYDROcodone-acetaminophen (NORCO) 5-325 mg per tablet Take 1 tablet by mouth twice daily as needed for up to 30 days.Earliest Fill Date: 09/18/17 Disp: 180 tablet Rfl: 0 simvastatin (ZOCOR) 20 mg tablet Take 1 tablet by mouth daily at bedtime. Disp: 90 tablet Rfl: 3 cholecalciferol, Vitamin D3, (VITAMIN D3) 50,000 unit cap capsule Take 1 capsule by mouth once each week. Disp: 12 capsule Rfl: 3 warfarin (COUMADIN) 5 mg tablet Take 0.5 tablets by mouth once daily. Disp: 30 tablet Rfl: 6 traZODone (DESYREL) 50 mg tablet TAKE 1 TABLET BY MOUTH DAILY AT BEDTIME NEEDED FOR SLEEP. Disp: 90 tablet Rfl: 1 omeprazole (PRILOSEC) 20 mg capsule Take 1 capsule by mouth once daily. Disp: 90 capsule Rfl: 3 bumetanide (BUMEX) 2 mg tablet Take 0.5 tablets by mouth once daily. Disp: 30 tablet Rfl: 6 diphenhydrAMINE (BENADRYL) 25 mg capsule Take 1 capsule by mouth every 6 hours as needed. Disp: Rfl: 0 Cyanocobalamin 1,000 mcg subl Dissolve 1 tablet under the tongue once daily. One tablet under tongue daily. Disp: Rfl: 0 polyethylene glycol, bulk, 100 % powd 17 g once daily. Disp: 527 g Rfl: 6 triamcinolone acetonide (KENALOG) 0.1 % cream Apply 1 application to affected area three times daily. Apply sparingly to area for rash/itching. Disp: 60 g Rfl: 0 predniSONE (DELTASONE) 20 mg tablet Take 1 tablet by mouth twice daily for 3 days. Disp: 6 tablet Rfl: 0 No current facility-administered medications for this visit. PAST SURGICAL HISTORY Procedure Laterality Date - COLONOSCOP W/ OR W/O [facility] SPEC 06/01/2013 Colonoscopy - COLONOSCOPY W/BX 02/22/06 - EGD W/O OR W/BRUSH/WASH 02/05/03 EGD - PAST SURGICAL HISTORY OF 1990 left foot surgery - PAST SURGICAL HISTORY OF bilateral mastoids - as an infant - REMV CATARACT EXTRACAP,INSERT LENS 2012 Cataract Extraction with PC IOL - REMV CATARACT EXTRACAP,INSERT LENS 2012 Cataract Extraction with PC IOL FAMILY HISTORY Problem Relation Age of Onset - Cancer Mother Lung cancer - Heart Father - Diabetes Brother 2 HALF BROTHERS - Coronary Artery Disease Brother CABG Social History Substance Use Topics - Smoking status: Former Smoker - Smokeless tobacco: Never Used Comment: quit in 1988 - Alcohol use Yes Comment: socially BP 164/76 Pulse 66 Temp 37.1 ?C (98.8 ?F) (Tympanic) Resp 12 Wt 103 kg (227 lb) BMI 29.15 kg/m2 Physical Exam Constitutional: He is oriented to person, place, and time and well-developed, well-nourished, and in no distress. HENT: Head: Normocephalic and atraumatic. Neck: Neck supple. Cardiovascular: Normal rate, regular rhythm and normal heart sounds. Pulmonary/Chest: Effort normal and breath sounds normal. Neurological: He is alert and oriented to person, place, and time. Skin: Skin is warm and dry. Pt has a red raised raise don his dorsal forearms bilaterally, left worse than right. No vesicles or petechiae or purpura. No signs of secondary bacterial infection or cellulitis. Psychiatric: Affect normal. Nursing note and vitals reviewed. ASSESSMENT/PLAN: 1. Contact dermatitis, unspecified contact dermatitis type, unspecified trigger - ICD9: 692.9, ICD10: L25.9 - Oral Steriod tx -Prednisone burst- will extend his prednisone 3 hutchinson to 20mg bid. Also given kenalog cream topically. Appears ot be likely some sort of contact dermatitis. Discussed with patient concerning symptoms to go to the emergency department or follow up here. Pt agreeable with this plan. - Topical steriod tx with Rx for steriod cream/ointment- see orders - Anti itch therapy of Oral Benydryl recommended prn - discussed skin care of rash - follow up if symptoms persist or worsen. Chacha Ricks PA-C PROTIME W/INR Collected: 07/27/2017 Status: F Source: [place] 10:29 AM [facility] REPOSITORY TYPE CODE TESTS RESULT OUT OF REFERENCE UNITS RANGE LAB L9200.1001 11.9-14.4 SEC High PROTIME ISTAT 36.1 Result Comment: Reference Range 11.9 - 14.4 LAB L9200.2000 Normal INR ISTAT 3.20 Result Comment: Critical Value > 3.5 Performed By: #### [id number] #### [facility] Point of Care [address] [place] [address] PROGRESS Observed: 07/27/2017 Status: COMPLETED Source: [place] 9:[address] [facility] [place] REPOSITORY HNO ID: [id number] Author: Mickie Anguiano) Sophie Service: (none) Author Type: Nurse Practitioner Type: Progress Notes Filed: 07/27/2017 9:37 AM Note Text: JOSÉ Baez is a 81 year old male who presents with a rash on his arms and legs, onset yesterday. The rash is itching. He denies pain. He states he started a new medication yesterday for yeast infection on his lips but the rash was present prior to taking the medication. He has a history of stage 3 kidney disease. He is taking lisinopril and this medication dose was doubled one week ago. Review of Systems Constitutional: Negative. Negative for fever. Respiratory: Negative. Negative for cough and shortness of breath. Cardiovascular: Positive for leg swelling (chronic). Musculoskeletal: Negative. Negative for myalgias. Skin: Positive for itching and rash. BP 142/82 Pulse 62 Temp 36.8 ?C (98.2 ?F) (Tympanic) Resp 16 Wt 103.4 kg (228 lb) BMI 29.27 kg/m2 PAST MEDICAL HISTORY Diagnosis Date - Diaphragmatic hernia without mention of obstruction or gangrene Hiatal hernia - Diarrhea - Esophageal reflux - Generalized osteoarthrosis, unspecified site - Internal hemorrhoids without mention of complication - Other and unspecified disc disorder of unspecified region Intervertebral disc disorders - Other and unspecified hyperlipidemia - Personal history of malignant neoplasm of skin 01/17/2011 - Prediabetes Diabetes mellitus - Unspecified cardiovascular disease - 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 PAST SURGICAL HISTORY Procedure Laterality Date - COLONOSCOP W/ OR W/O [facility] SPEC 06/01/2013 Colonoscopy - COLONOSCOPY W/BX 02/22/06 - EGD W/O OR W/BRUSH/WASH 02/05/03 EGD - PAST SURGICAL HISTORY OF 1990 left foot surgery - PAST SURGICAL HISTORY OF bilateral mastoids - as an infant - REMV CATARACT EXTRACAP,INSERT LENS 2012 Cataract Extraction with PC IOL - REMV CATARACT EXTRACAP,INSERT LENS 2012 Cataract Extraction with PC IOL ALLERGIES Calan [Verapamil Hcl]; Doxazosin; Flomax [Tamsulosin Hcl]; Hctz [Hydrochlorothiazide]; Inderal [Propranolol Hcl]; Lipitor [Atorvastatin Calcium]; Niaspan [Niacin (Antihyperlipidemic)]; Quinine MEDICATIONS amLODIPine (NORVASC) 10 mg tablet Take 0.5 tablets by mouth once daily. lisinopril (PRINIVIL) 20 mg tablet Take 1 tablet by mouth once daily. hydrocortisone (PROCTOSOL HC) 2.5 % rectal cream Apply one application to hemorrhoids twice a day. HYDROcodone-acetaminophen (NORCO) 5-325 mg per tablet Take 1 tablet by mouth twice daily as needed for up to 30 days.Earliest Fill Date: 07/20/17 clotrimazole-betamethasone (LOTRISONE) cream Apply 1 application to affected area twice daily. UNTIL CLEAR FOR UP TO 2-3 WEEKS [START ON 08/19/2017] HYDROcodone-acetaminophen (NORCO) 5-325 mg per tablet Take 1 tablet by mouth twice daily as needed for up to 30 days.Earliest Fill Date: 08/19/17 [START ON 09/18/2017] HYDROcodone-acetaminophen (NORCO) 5-325 mg per tablet Take 1 tablet by mouth twice daily as needed for up to 30 days.Earliest Fill Date: 09/18/17 simvastatin (ZOCOR) 20 mg tablet Take 1 tablet by mouth daily at bedtime. cholecalciferol, Vitamin D3, (VITAMIN D3) 50,000 unit cap capsule Take 1 capsule by mouth once each week. warfarin (COUMADIN) 5 mg tablet Take 0.5 tablets by mouth once daily. traZODone (DESYREL) 50 mg tablet TAKE 1 TABLET BY MOUTH DAILY AT BEDTIME NEEDED FOR SLEEP. omeprazole (PRILOSEC) 20 mg capsule Take 1 capsule by mouth once daily. bumetanide (BUMEX) 2 mg tablet Take 0.5 tablets by mouth once daily. diphenhydrAMINE (BENADRYL) 25 mg capsule Take 1 capsule by mouth every 6 hours as needed. Cyanocobalamin 1,000 mcg subl Dissolve 1 tablet under the tongue once daily. One tablet under tongue daily. polyethylene glycol, bulk, 100 % powd 17 g once daily. FAMILY HISTORY Problem Relation Age of Onset - Cancer Mother Lung cancer - Heart Father - Diabetes Brother 2 HALF BROTHERS - Coronary Artery Disease Brother CABG Social History Substance Use Topics - Smoking status: Former Smoker - Smokeless tobacco: Never Used Comment: quit in 1988 - Alcohol use Yes Comment: socially Physical Exam Constitutional: He is well-developed, well-nourished, and in no distress. HENT: Head: Normocephalic. Cardiovascular: Normal rate. Pulmonary/Chest: Effort normal. Musculoskeletal: He exhibits edema (bilateral extremity edema, 2+). Skin: Skin is warm and dry. Rash noted. There is erythema. Nursing note and vitals reviewed. ASSESSMENT/PLAN: 1. Rash - ICD9: 782.1, ICD10: R21 - PREDNISONE 20 MG TABLET - may continue benadryl - discussed possible etiologies for rash, including increased dosage of lisinopril. If not improving on prednisone, or returns after course, recommend f/u with PCP for medication evaluation. - Follow-up with your PCP in 3-5 days if symptoms have not improved or sooner if symptoms worsen - Discussed red flags and need for immediate medical evaluation if any occur. - Discussed supportive care treatment with fluids, rest and analgesia. - Discussed expected course of illness Mickie Barrios CNP TOXICOLOGY SCREEN,UR Collected: 07/20/2017 Status: F Source: [place] 10:14 AM [facility] REPOSITORY TYPE CODE TESTS RESULT OUT OF REFERENCE UNITS RANGE LAB UPCP2 Negative Negative Phencyclidin e, Urine Result Comment: Cutoff threshold at 25 ng/mL. Cross reactivity with other substances can occur with immunoassay screening. In house validation testing showed 80% of preliminary positive samples were confirmed by mass spectrometry (high specificity, quantitative) testing. Greater than 99% of negative screen results were confirmed by mass spectrometry (high specificity, quantitative) testing. LAB UBENZ2 Negative Benzodiazepines, Ur Negative Result Comment: Cutoff threshold at 200 ng/mL. Cross reactivity with other substances can occur with immunoassay screening. In house validation testing showed 90% of preliminary positive samples were confirmed by mass spectrometry (high specificity, quantitative) testing. 80% of negative screen results were confirmed by mass spectrometry (high specificity, quantitative) testing. LAB UCOC2 Negative Cocaine, Negative Urine Result Comment: Cutoff threshold at 300 ng/mL. Cross reactivity with other substances can occur with immunoassay screening. In house validation testing showed greater than 99% of preliminary positive samples were confirmed by mass spectrometry (high specificity, quantitative) testing. Greater than 99% of negative screen results were confirmed by mass spectrometry (high specificity, quantitative) testing. LAB UAMPH2 Negative Amphetamines, Urine Negative Result Comment: Cutoff threshold at 1000 ng/mL. Cross reactivity with other substances can occur with immunoassay screening. In house validation testing showed 70% of preliminary positive samples were confirmed by mass spectrometry (high specificity, quantitative) testing. Greater than 99% of negative screen results were confirmed by mass spectrometry (high specificity, quantitative) testing. LAB UTHC2 Negative Cannabinoids, Urine Negative Result Comment: Cutoff threshold at 50 ng/mL. Cross reactivity with other substances can occur wtih immunoassay screening. In house validation testing showed 80% of preliminary positive samples were confirmed by mass spectrometry (high specificity, quantitative) testing. Greater than 99% of negative screen results were confirmed by mass spectrometry (high specificity, quantitative) testing. LAB UOPI2 Negative Abnormal Preliminary Alert Opiates, Urine positive. Result Comment: Cutoff threshold at 300 ng/mL. Cross reactivity with other substances can occur wtih immunoassay screening. In house validation testing showed greater than 99% of preliminary positive samples were confirmed by mass spectrometry (high specificity, quantitative) testing. 90% of negative screen results were confirmed by mass spectrometry (high specificity, quantitative) testing. LAB UBARB2 Negative Barbiturates, Urine Negative Result Comment: Cutoff threshold at 200 ng/mL. Cross reactivity with other substances can occur with immunoassay screening. In house validation testing showed greater than 99% of preliminary positive samples were confirmed by mass spectrometry (high specificity, quantitative) testing. Greater than 99% of negative screen results were confirmed by mass spectrometry (high specificity, quantitative) testing. LAB UETOH <11 mg/dL <11 Ethanol, Urine LAB UOXYC Negative Oxycodone, Negative Urine Result Comment: Cutoff threshold at 100 ng/mL. Cross reactivity with other substances can occur with immunoassay screening. In house validation testing showed greater than 99% of preliminary positive samples were confirmed by mass spectrometry (high specificity, quantitative) testing. Greater than 99% of negative screen results were confirmed by mass spectrometry (high specificity, quantitative) testing. Comment: Immunoassay screen only. Detection of any drug(s) in this urine toxicology panel is presumptive only. Intended use is for evaluation of suspected acute overdose. These tests are for medical purposes onl y and should not be used for compliance monitoring, legal, or forensic use. If clinically indicated, confirmation by high specificity, quantitative methodology may be requested on the same specimen through Client Services ([phone]) if contacted within 48 hours of initial testing. These tests were developed and their performance characteristics determined by [facility] ([facility]). They have not been cleared or a pproved by the FDA. [facility] is regulated under CLIA as qualified to perform high complexity testing. These tests are used for clinical purposes. They should not be regarded as investigational or for research. Performed By: #### UTOX2, UQNTPP #### [facility] [address] [id number] QUANT PAIN PANEL, Collected: 07/20/2017 Status: F Source: [facility] 10:[address] [facility] [place] REPOSITORY TYPE CODE TESTS RESULT OUT OF REFERENCE UNITS RANGE LAB UQCANN <16 ng/mL <16 Cannabinoid, Urine Result Comment: Tetrahydrocannabinol carboxylic acid (THCA) is a metabolite of ncykl-2-fbihrqnhxyyhuhflbziz which is the main active component of marijuana. LAB UQBNZL <24 ng/mL Benzoylecognine, Ur <24 Result Comment: Benzoylecognine is a metabolite of cocaine. LAB UQACMR <5 ng/mL 6-Acetylmorphine, Ur <5 Result Comment: 6-LEYDI (6-monoacetylmorphine, also known as 6-acetylmorphine) is a unique metabolite of heroin. Presence of 6-LEYDI indicates use of heroin. 6-LEYDI is further metabolized to morphine and absence of 6-LEYDI does not rule out the use of heroin. LAB UQAMPH <5 ng/mL Amphetamine, Urine <5 LAB UQMAMP <8 ng/mL Methamphetamine, Ur <8 LAB UQBUPR <20 ng/mL Buprenorphine, Ur <20 LAB UQNBUP <20 ng/mL Norbuprenorphine, Ur <20 Result Comment: Norbuprenorphine is the primary active metabolite of buprenorphine. LAB UQMTHD <16 ng/mL Methadone, Urine <16 LAB UQEDDP <6 ng/mL EDDP, Urine <6 Result Comment: EDDP is a metabolite of methadone. LAB UQTRAM <25 ng/mL Tramadol, Urine <25 LAB UQDTRM <20 ng/mL Desmethyltramadol <20 ,Ur Result Comment: Desmethyltramadol is a metabolite of tramadol. LAB UQFNTL <6 ng/mL Fentanyl, Urine <6 LAB UQNFTL <6 ng/mL Norfentanyl, Urine <6 Result Comment: Norfentanyl is a metabolite of fentanyl. LAB UQCODE <11 ng/mL Codeine, Urine <11 LAB UQMORP <10 ng/mL Morphine, Urine <10 Result Comment: Morphine is a metabolite of codeine and heroin. LAB UQDCDN <5 ng/mL Dihydrocodeine, Ur High 288 Result Comment: The presence of dihydrocodeine may arise from dihydrocodeine containing drugs or from the metabolism of hydrocodone. LAB UQHCOD <8 ng/mL Hydrocodone, High Urine 1166 Result Comment: Hydrocodone may arise from hydrocodone containing drugs or by metabolism of dihydrocodeine. Hydrocodone is also a minor metabolite of codeine, and may be detected with elevated levels of codeine. Hydrocodone is metabolized to hydromorphone and dihydrocodeine. LAB UQOXYC <5 ng/mL Oxycodone, Urine <5 LAB UQHMOR <5 ng/mL Hydromorphone, High Ur 262 Result Comment: Hydromorphone may arise from hydromorphone containing drugs or by metabolism of morphine and hydrocodone. LAB UQOXYM <5 ng/mL Oxymorphone, Urine <5 Result Comment: Oxymorphone is a metabolite of oxycodone. LAB UQCREA >19 mg/dL Creatinine, >50 Urine LAB UQPH 4-10 pH, Urine 4-10 LAB UQSPGR 1.005-1.020 Specific [place],Ur 1.005-1.020 LAB UQOXID Negative Oxidants, Negative Urine LAB UQSPQ Specimen Specimen Quality quality results within acceptable limits. LAB UQNOTE Note This test is for Medical use only. Result Comment: This test was developed and its performance characteristics determined by [facility] [place] ([facility] It has not been cleared or approved by the FDA. [facility] is regulated under CLIA as qualified to perform high-complexity testing. This test is used for clinical purposes. It should not be regarded as investigational or for research. Performed By: #### UTOX2, UQNTPP #### [facility] [address] [place], [place] [address] PROGRESS Observed: 07/20/2017 Status: COMPLETED Source: [place] 8:[address] [facility] REPOSITORY HNO ID: [id number] Author: Ian Hall (Andria) Rivas Service: (none) Author Type: Physician Electrical Wiring Lineman Type: Progress Notes Filed: 07/20/2017 10:57 AM Note Text: Patient presents with: F/U 3 Month Derm Problem: upper lip and left side of nose due for diabetic foot exam Pt presents today for follow-up of blood pressure. Only concern is: Refers that he has a little rash on face. Refers that it has been there for several months. Refers that it is on his upper lip and on the left nose. No pain/itch associated with area. Refers upper lip hurts with shaving, but otherwise no pain. Not worse since starting. Refers just not healing. Does follow with derm and reports next visit is in August. 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 No dizziness/syncope. No palpitations. Ex-smoker -- age [age]. Follows with cardiology at [place]. E55.9 Low vitamin D level Taking vitamin D 50,000 units weekly. No problems. Last check was April. I10 Essential hypertension, benign 134/64. Last 3 Encounter BP Readings: Date: BP: 07/20/2017 134/64 06/07/2017 138/67[bp vira average[ 05/24/2017 162/60 Taking lisinopril and norvasc -- no problems. 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 Refers crushed heal about 25 years ago. Refers 2 operations and fused. Uses vicodin twice daily. (Itches and tingles at night if doesn't use). Refers vicodin is effective at controlling symptoms. K21.9 Gastroesophageal reflux disease without esophagitis Using omeprazole daily. Refers that is keeping symptoms controlled. E78.2 Mixed hyperlipidemia Last LDL in April -- 119. On zocor daily. No side effects. Consider optimizing dose. N18.3 CKD (chronic kidney disease) stage 3, GFR 30-59 ml/min Stable from April. Continues stage 3. Reports no worsening of urinary stream. Z79.01 Chronic anticoagulation Went to [facility] for INR on Tuesday. Refers consistently running around 2.4 - 2.6 No hematochezia/melena. No abnormal bleeding patterns. Admits to bruising easily. I48.0 Paroxysmal atrial fibrillation (HCC) Z95.818 Status post placement of implantable loop recorder Hx of complete heart block and pacemaker insertion. Follows with cardiology at [facility]. Refers had it checked (via home check) about 2 weeks ago. R73.03 Prediabetes Glucose yesterday was 97. Tries to watch what he eats. A1C has been stable in the HISTORIES FAMILY HISTORY Problem Relation Age of Onset - Cancer Mother Lung cancer - Heart Father - Diabetes Brother 2 HALF BROTHERS - Coronary Artery Disease Brother CABG PAST MEDICAL HISTORY Diagnosis Date - Diaphragmatic hernia without mention of obstruction or gangrene Hiatal hernia - Diarrhea - Esophageal reflux - Generalized osteoarthrosis, unspecified site - Internal hemorrhoids without mention of complication - Other and unspecified disc disorder of unspecified region Intervertebral disc disorders - Other and unspecified hyperlipidemia - Personal history of malignant neoplasm of skin 01/17/2011 - Prediabetes Diabetes mellitus - Unspecified cardiovascular disease - 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 PAST SURGICAL HISTORY Procedure Laterality Date - [facility] Colonoscopy - COLONOSCOPY W/BX 02/22/06 - EGD W/O OR W/BRUSH/WASH 02/05/03 EGD - PAST SURGICAL HISTORY OF 1990 left foot surgery - PAST SURGICAL HISTORY OF bilateral mastoids - as an infant - REMV CATARACT EXTRACAP,INSERT LENS 2012 Cataract Extraction with PC IOL - REMV CATARACT EXTRACAP,INSERT LENS 2012 Cataract Extraction with PC IOL Social History Marital status: Spouse name: Years of education: Number of children: 2 Occupational History Occupation Employer Comment [employer] Social History Main Topics Smoking status: Former Smoker Packs/day: 0.00 Years: 0.00 Smokeless status: Never Used Comment: quit in 1988 Alcohol use: Yes Comment: socially Drug use: No PHYSICAL EXAMINATION BP 134/64 Pulse 64 Temp 37.1 ?C (98.7 ?F) (Tympanic) Resp 16 Wt 105.2 kg (232 lb) BMI 29.79 kg/m2 GENERAL APPEARANCE: Alert, oriented, well nourished. SKIN: small dry patch on left nose. Red excoriation above upper lip. HEAD:normocephalic MOUTH and PHARYNX: moist. No open areas. No exudate. NECK: supple. No lymphadenopahy. Thyroid normal. No bruits. LUNGS: CTA HEART: RRR. No M/R/G GAIT: with limp EXT: +3 pitting lower ext edema. Brownish discoloration BLE. Red area on anterior LLE that patient refers is a remnant of a remote water blister. Feet:Shoes and socks removed, normal distal pulses, not sensitive to monofilament except an occasional spot on toes, vibratory perception decreased Right foot sensitive lateral 5th MTJ but not medial, Picks back up at mi tibia. Left Vibratory sense bilaterally 1st and 5th MTJ and calluses plantar foot, medial great toes. Has onychogryphosis with thickened yellow nails. ASSESSMENT/PLAN: 1. Atherosclerosis of knik coronary artery of knik heart without angina pectoris - ICD9: 414.01, ICD10: I25.10 (primary diagnosis) Stable. Continue to follow with cardiology. 2. Low vitamin D level - ICD9: 268.9, ICD10: E55.9 Continue Vitamin D -- labs next visit. - VITAMIN D 25 HYDROXY 3. Essential hypertension, benign - ICD9: 401.1, ICD10: I10 - good control - Continue current medication(s) -- norvasc and lisinopril. - AMLODIPINE 10 MG TABLET 4. Post-traumatic osteoarthritis of left foot - ICD9: 715.27, ICD10: M19.172 Controlled with current therapy. Will tox screen today and med agreement signed. - HYDROCODONE 5 MG-ACETAMINOPHEN 325 MG TABLET - HYDROCODONE 5 MG-ACETAMINOPHEN 325 MG TABLET - HYDROCODONE 5 MG-ACETAMINOPHEN 325 MG TABLET 5. Gastroesophageal reflux disease without esophagitis - ICD9: 530.81, ICD10: K21.9 - Continue treatment with Prilosec 20 mg daily 6. Mixed hyperlipidemia - ICD9: 272.2, ICD10: E78.2 - good control - Optimize zocor dosage d/t co-morbid conditions. - LIPID PANEL BASIC - COMP METABOLIC PANEL - CK CREATINE KINASE 7. CKD (chronic kidney disease) stage 3, GFR 30-59 ml/min - ICD9: 585.3, ICD10: N18.3 Stable. Continue to monitor. - COMP METABOLIC PANEL 8. Chronic anticoagulation - ICD9: V58.61, ICD10: Z79.01 Follows at [facility]. 9. Paroxysmal atrial fibrillation (HCC) - ICD9: 427.31, ICD10: I48.0 Controlled. RRR today. 10. Status post placement of implantable loop recorder - ICD9: V45.09, ICD10: Z95.818 No problems. Continue to follow with cardiology. 11. Prediabetes - ICD9: 790.29, ICD10: R73.03 Controlled via diet. Continue to monitor. Hemoglobin A1C (%) Date Value 04/20/2017 6.1 11/05/2016 6.1 ) - HGB A1C 12. External hemorrhoid - ICD9: 455.3, ICD10: K64.4 Needs refill: - HYDROCORTISONE 2.5 % TOPICAL CREAM WITH PERINEAL APPLICATOR 13. Rash - ICD9: 782.1, ICD10: R21 Avoid shaving until upper lip healed. Has an upcoming dermatology appt. - CLOTRIMAZOLE-BETAMETHASONE 1 %-0.05 % TOPICAL CREAM 14. Chronic narcotic use - ICD9: 305.50, ICD10: F11.90 - TOX SCREEN ROUT UR - PAIN PANEL, UR QUANT 15. Medication management - ICD9: V58.69, ICD10: Z79.899 - TOX SCREEN ROUT UR - PAIN PANEL, UR QUANT - pain contract signed. Follow-up in 3 months. Sooner if needed. Labs prior to next visit. Personally interviewed and examined patient with concurrent treatment plan development with Carly Dobson in orientation. Wan M Anisa Hathaway PA-C July 20, 2017 10:57 AM. CNOV Observed: 07/20/2017 Status: COMPLETED Source: [place] 8:20 AM [facility] REPOSITORY Office Visit (FAMPWS) PEG BAEZ ([id number]) 1935 M NFR Date Time Provider Department 07/20/17 8:20 AM Ian HATHAWAY) FAMVickiWS During your visit today, we recorded the following information about you: Temperature Pulse Respiration Blood pressure 98.7 degrees 64/minute 16/minute 134/64 Weight 105.2 kg M Anisa Hathaway PA-C 07/20/2017 10:57 AM Signed Patient presents with: F/U 3 Month Derm Problem: upper lip and left side of nose due for diabetic foot exam Pt presents today for follow-up of blood pressure. Only concern is: Refers that he has a little rash on face. Refers that it has been there for several months. Refers that it is on his upper lip and on the left nose. No pain/itch associated with area. Refers upper lip hurts with shaving, but otherwise no pain. Not worse since starting. Refers just not healing. Does follow with derm and reports next visit is in August. 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 No dizziness/syncope. No palpitations. Ex-smoker -- age [age]. Follows with cardiology at [place]. E55.9 Low vitamin D level Taking vitamin D 50,000 units weekly. No problems. Last check was April. I10 Essential hypertension, benign 134/64. Last 3 Encounter BP Readings: Date: BP: 07/20/2017 134/64 06/07/2017 138/67[bp vira average[ 05/24/2017 162/60 Taking lisinopril and norvasc -- no problems. 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 Refers crushed heal about 25 years ago. Refers 2 operations and fused. Uses vicodin twice daily. (Itches and tingles at night if doesn't use). Refers vicodin is effective at controlling symptoms. K21.9 Gastroesophageal reflux disease without esophagitis Using omeprazole daily. Refers that is keeping symptoms controlled. E78.2 Mixed hyperlipidemia Last LDL in April -- 119. On zocor daily. No side effects. Consider optimizing dose. N18.3 CKD (chronic kidney disease) stage 3, GFR 30-59 ml/min Stable from April. Continues stage 3. Reports no worsening of urinary stream. Z79.01 Chronic anticoagulation Went to [facility] for INR on Tuesday. Refers consistently running around 2.4 - 2.6 No hematochezia/melena. No abnormal bleeding patterns. Admits to bruising easily. I48.0 Paroxysmal atrial fibrillation (HCC) Z95.818 Status post placement of implantable loop recorder Hx of complete heart block and pacemaker insertion. Follows with cardiology at [facility]. Refers had it checked (via home check) about 2 weeks ago. R73.03 Prediabetes Glucose yesterday was 97. Tries to watch what he eats. A1C has been stable in the HISTORIES FAMILY HISTORY Problem Relation Age of Onset - Cancer Mother Lung cancer - Heart Father - Diabetes Brother 2 HALF BROTHERS - Coronary Artery Disease Brother CABG PAST MEDICAL HISTORY Diagnosis Date - Diaphragmatic hernia without mention of obstruction or gangrene Hiatal hernia - Diarrhea - Esophageal reflux - Generalized osteoarthrosis, unspecified site - Internal hemorrhoids without mention of complication - Other and unspecified disc disorder of unspecified region Intervertebral disc disorders - Other and unspecified hyperlipidemia - Personal history of malignant neoplasm of skin 01/17/2011 - Prediabetes Diabetes mellitus - Unspecified cardiovascular disease - 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 PAST SURGICAL HISTORY Procedure Laterality Date - COLONOSCOP W/ OR W/O [facility] SPEC 06/01/2013 Colonoscopy - COLONOSCOPY W/BX 02/22/06 - EGD W/O OR W/BRUSH/WASH 02/05/03 EGD - PAST SURGICAL HISTORY OF 1990 left foot surgery - PAST SURGICAL HISTORY OF bilateral mastoids - as an - REMV CATARACT EXTRACAP,INSERT LENS 2012 Cataract Extraction with PC IOL - REMV CATARACT EXTRACAP,INSERT LENS 2012 Cataract Extraction with PC IOL Social History Marital status: Spouse name: Years of education: Number of children: 2 Occupational History Occupation Employer Comment [employer] Social History Main Topics Smoking status: Former Smoker Packs/day: 0.00 Years: 0.00 Smokeless status: Never Used Comment: quit in 1988 Alcohol use: Yes Comment: socially Drug use: No PHYSICAL EXAMINATION BP 134/64 Pulse 64 Temp 37.1 ?C (98.7 ?F) (Tympanic) Resp 16 Wt 105.2 kg (232 lb) BMI 29.79 kg/m2 GENERAL APPEARANCE: Alert, oriented, well nourished. SKIN: small dry patch on left nose. Red excoriation above upper lip. HEAD:normocephalic MOUTH and PHARYNX: moist. No open areas. No exudate. NECK: supple. No lymphadenopahy. Thyroid normal. No bruits. LUNGS: CTA HEART: RRR. No M/R/G GAIT: with limp EXT: +3 pitting lower ext edema. Brownish discoloration BLE. Red area on anterior LLE that patient refers is a remnant of a remote water blister. Feet:Shoes and socks removed, normal distal pulses, not sensitive to monofilament except an occasional spot on toes, vibratory perception decreased Right foot sensitive lateral 5th MTJ but not medial, Picks back up at mi tibia. Left Vibratory sense bilaterally 1st and 5th MTJ and calluses plantar foot, medial great toes. Has onychogryphosis with thickened yellow nails. ASSESSMENT/PLAN: 1. Atherosclerosis of knik coronary artery of knik heart without angina pectoris - ICD9: 414.01, ICD10: I25.10 (primary diagnosis) Stable. Continue to follow with cardiology. 2. Low vitamin D level - ICD9: 268.9, ICD10: E55.9 Continue Vitamin D -- labs next visit. - VITAMIN D 25 HYDROXY 3. Essential hypertension, benign - ICD9: 401.1, ICD10: I10 - good control - Continue current medication(s) -- norvasc and lisinopril. - AMLODIPINE 10 MG TABLET 4. Post-traumatic osteoarthritis of left foot - ICD9: 715.27, ICD10: M19.172 Controlled with current therapy. Will tox screen today and med agreement signed. - HYDROCODONE 5 MG-ACETAMINOPHEN 325 MG TABLET - HYDROCODONE 5 MG-ACETAMINOPHEN 325 MG TABLET - HYDROCODONE 5 MG-ACETAMINOPHEN 325 MG TABLET 5. Gastroesophageal reflux disease without esophagitis - ICD9: 530.81, ICD10: K21.9 - Continue treatment with Prilosec 20 mg daily 6. Mixed hyperlipidemia - ICD9: 272.2, ICD10: E78.2 - good control - Optimize zocor dosage d/t co-morbid conditions. - LIPID PANEL BASIC - COMP METABOLIC PANEL - CK CREATINE KINASE 7. CKD (chronic kidney disease) stage 3, GFR 30-59 ml/min - ICD9: 585.3, ICD10: N18.3 Stable. Continue to monitor. - COMP METABOLIC PANEL 8. Chronic anticoagulation - ICD9: V58.61, ICD10: Z79.01 Follows at [facility]. 9. Paroxysmal atrial fibrillation (HCC) - ICD9: 427.31, ICD10: I48.0 Controlled. RRR today. 10. Status post placement of implantable loop recorder - ICD9: V45.09, ICD10: Z95.818 No problems. Continue to follow with cardiology. 11. Prediabetes - ICD9: 790.29, ICD10: R73.03 Controlled via diet. Continue to monitor. Hemoglobin A1C (%) Date Value 04/20/2017 6.1 11/05/2016 6.1 ) - HGB A1C 12. External hemorrhoid - ICD9: 455.3, ICD10: K64.4 Needs refill: - HYDROCORTISONE 2.5 % TOPICAL CREAM WITH PERINEAL APPLICATOR 13. Rash - ICD9: 782.1, ICD10: R21 Avoid shaving until upper lip healed. Has an upcoming dermatology appt. - CLOTRIMAZOLE-BETAMETHASONE 1 %-0.05 % TOPICAL CREAM 14. Chronic narcotic use - ICD9: 305.50, ICD10: F11.90 - TOX SCREEN ROUT UR - PAIN PANEL, UR QUANT 15. Medication management - ICD9: V58.69, ICD10: Z79.899 - TOX SCREEN ROUT UR - PAIN PANEL, UR QUANT - pain contract signed. Follow-up in 3 months. Sooner if needed. Labs prior to next visit. Personally interviewed and examined patient with concurrent treatment plan development with Carly Dobson in orientation. Wan Hathaway PA-C July 20, 2017 10:57 AM. Referring Provider: Ian HATHAWAY ([place]) [[id number]] Allergies As of Date: 07/20/2017 Noted Allergy Reaction CALAN (VERAPAMIL HCL) 05/18/2005 DOXAZOSIN 08/18/2007 2 - Rash FLOMAX (TAMSULOSIN HCL) 05/18/2005 HCTZ (HYDROCHLOROTHIAZIDE) 07/27/2007 2 - Rash INDERAL (PROPRANOLOL HCL) 05/18/2005 LIPITOR (ATORVASTATIN CALCIUM) 05/18/2005 NIASPAN (NIACIN (ANTIHYPERLIPIDEM*05/18/2005 QUININE 05/18/2005 Date Reviewed: 07/20/2017 Reviewed by: Shaina Bansal LPN - Fully Assessed Reason for Visit: F/U 3 Month [443] Derm Problem [33] Cmt: upper lip and left side of nose due for diabetic foot exam [Other] Reason For Visit History Recorded Primary Visit Diagnosis:Atherosclerosis of knik coronary artery of knik heart without angina pectoris [I25.10] Other Visit Diagnoses:Low vitamin D level [E55.9] Essential hypertension, benign [I10] Post-traumatic osteoarthritis of left foot [M19.172] Gastroesophageal reflux disease without esophagitis [K21.9] Mixed hyperlipidemia [E78.2] CKD (chronic kidney disease) stage 3, GFR 30-59 ml/min [N18.3] Chronic anticoagulation [Z79.01] Paroxysmal atrial fibrillation (HCC) [I48.0] Status post placement of implantable loop recorder [Z95.818] Prediabetes [R73.03] External hemorrhoid [K64.4] Rash [R21] Chronic narcotic use [F11.90] Medication management [Z79.899] Order(s):hydrocortisone (PROCTOSOL HC) 2.5 % rectal creamApply one application to hemorrhoids twice a day.Disp: 1 TubeRfl: 3 amLODIPine (NORVASC) 10 mg tabletTake 1 tablet by mouth once daily.Disp: 90 tabletRfl: 3 HYDROcodone-acetaminophen (NORCO) 5-325 mg per tabletTake 1 tablet by mouth twice daily as needed for up to 30 days. Earliest Fill Date: 07/20/17Disp: 180 tabletRfl: 0 LIPID PANEL BASIC [SQLIPB] Order #: [id number] FUTURE COMP METABOLIC PANEL [SQCMP] Order #: [id number] FUTURE VITAMIN D 25 HYDROXY [SQVITD] Order #: [id number] FUTURE HGB A1C [KAHEP7R] Order #: [id number] FUTURE clotrimazole-betamethasone (LOTRISONE) creamApply 1 application to affected area twice daily. UNTIL CLEAR FOR UP TO 2-3 WEEKSDisp: 15 gRfl: 1 TOX SCREEN ROUT UR [SQUTOX2] Order #: [id number] FUTURE PAIN PANEL, UR QUANT [SQUQNTPP] Order #: [id number] FUTURE simvastatin (ZOCOR) 40 mg tabletTake 1 tablet by mouth daily at bedtime.Disp: 90 tabletRfl: 3 CK CREATINE KINASE [SQCK] Order #: [id number] FUTURE [START ON 08/19/2017] HYDROcodone-acetaminophen (NORCO) 5-325 mg per tabletTake 1 tablet by mouth twice daily as needed for up to 30 days. Earliest Fill Date: 08/19/17Disp: 180 tabletRfl: 0 [START ON 09/18/2017] HYDROcodone-acetaminophen (NORCO) 5-325 mg per tabletTake 1 tablet by mouth twice daily as needed for up to 30 days. Earliest Fill Date: 09/18/17Disp: 180 tabletRfl: 0 Prescriptions as of 07/20/2017 Sig: HYDROCORTISONE 2.5 % TOPICAL * Apply one application to hemo* AMLODIPINE 10 MG TABLET Take 1 tablet by mouth once d* HYDROCODONE 5 MG-ACETAMINOPHE* Take 1 tablet by mouth twice * HYDROCODONE 5 MG-ACETAMINOPHE* Take 1 tablet by mouth twice * HYDROCODONE 5 MG-ACETAMINOPHE* Take 1 tablet by mouth twice * LISINOPRIL 10 MG TABLET Take 10 mg by mouth once adams* CHOLECALCIFEROL (VITAMIN D3) * Take 1 capsule by mouth once * WARFARIN 5 MG TABLET Take 0.5 tablets by mouth onc* TRAZODONE 50 MG TABLET TAKE 1 TABLET BY MOUTH DAILY* OMEPRAZOLE 20 MG CAPSULE,FRANCA* Take 1 capsule by mouth once * BUMETANIDE 2 MG TABLET Take 0.5 tablets by mouth onc* DIPHENHYDRAMINE 25 MG CAPSULE Take 1 capsule by mouth every* CYANOCOBALAMIN (VIT B-12) 1,0* Dissolve 1 tablet under the t* POLYETHYLENE GLYCOL (BULK) 10* 17 g once daily. CLOTRIMAZOLE-BETAMETHASONE 1 * Apply 1 application to affect* SIMVASTATIN 40 MG TABLET Take 1 tablet by mouth daily * Problem List As Of Date 07/20/2017 Noted Resolved Other specified disorder of penis [N48.89] INVALID FOR*11/12/2015 ALLERGIC RHINITIS NOS [J30.9] INVALID FOR* Coronary atherosclerosis [I25.10] INVALID FOR* ESOPHAGEAL REFLUX [K21.9] INVALID FOR* Type II or unspecified type diabetes mellitus w*INVALID FOR*11/14/2013 MIXED HYPERLIPIDEMIA [E78.2] INVALID FOR* BENIGN HYPERTENSION [I10] INVALID FOR* Other and unspecified hyperlipidemia [E78.5] 11/12/2015 Osteoarthrosis, generalized, involving multiple* Unspecified cardiovascular disease [I25.10] 11/12/2015 DIAPHRAGMATIC HERNIA [K44.9] More... Other and unspecified disc disorder of unspecif* 11/12/2015 More... 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] INVALID FOR*11/12/2015 Actinic skin damage [L57.8] INVALID FOR*11/12/2015 Solar Lentigines [L81.4] INVALID FOR*11/12/2015 Seborrheic Keratoses [L82.1] INVALID FOR*11/12/2015 Surgical Scars [L90.5] INVALID FOR*11/12/2015 Edema [R60.9] INVALID FOR*11/12/2015 Irritant contact dermatitis [L24.9] INVALID FOR*11/12/2015 Open wound(s) (multiple) of unspecified site(s)*INVALID FOR*08/29/2013 Postinflammatory skin changes: fading discolora*INVALID FOR*11/12/2015 Back pain [M54.9] INVALID FOR* Sciatica [M54.30] INVALID FOR* Lumbar disc displacement without myelopathy [M5*INVALID FOR* Lumbar facet arthropathy [M46.96] INVALID FOR* Lumbar spondylosis [M47.816] INVALID FOR* Lumbar stenosis [M48.061] INVALID FOR* Balanitis [N48.1] INVALID FOR*11/12/2015 Eczema intertrigo [L30.4] INVALID FOR*11/12/2015 Eczematous dermatitis [L30.9] INVALID FOR*11/12/2015 Fixed drug eruption [L27.1] INVALID FOR*11/12/2015 BPH (benign prostatic hyperplasia) [N40.0] INVALID FOR* CKD (chronic kidney disease) stage 3, GFR 30-59*INVALID FOR* Bradycardia [R00.1] INVALID FOR* 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 FOR* L-S radiculopathy [M54.17] INVALID FOR* PSVT (paroxysmal supraventricular tachycardia) *INVALID FOR* Status post placement of implantable loop recor*INVALID FOR*11/12/2015 Pain in right knee [M25.561] INVALID FOR*11/12/2015 Dependent edema [R60.9] INVALID FOR* Chronic anticoagulation [Z79.01] INVALID FOR* Paroxysmal atrial fibrillation (HCC) [I48.0] INVALID FOR* Status post placement of implantable loop recor*INVALID FOR* Sick sinus syndrome (HCC) [I49.5] INVALID FOR* Old W[place] (myocardial infarction) [I25.2] INVALID FOR* Acute diastolic CHF (congestive heart failure) *INVALID FOR* Complete heart block (HCC) [I44.2] INVALID FOR* More... Prediabetes [R73.03] INVALID FOR* Pacemaker [Z95.0] INVALID FOR* More... Prescriptions ordered this encounter Disp Refills Start End HYDROCORTISONE 2.5 % TOPICAL CREAM W* 1 Tu* 3 07/20/2017 Class: [facility] Sig: Apply one application to hemorrhoids twice a day. AMLODIPINE 10 MG TABLET 90 t* 3 07/20/2017 Class: [facility] Route: ORAL Sig: Take 1 tablet by mouth once daily. HYDROCODONE 5 MG-ACETAMINOPHEN 325 M* 180 * 0 07/20/2017 08/19/2017 Class: Print RX Cmt: ID number- [id number] Route: ORAL Sig: Take 1 tablet by mouth twice daily as needed for up to 30 days. Earliest Fill Date: 07/20/17 CLOTRIMAZOLE-BETAMETHASONE 1 %-0.05 * 15 g 1 07/20/2017 Route: TOPICAL Sig: Apply 1 application to affected area twice daily. UNTIL CLEAR FOR UP TO 2-3 WEEKS SIMVASTATIN 40 MG TABLET 90 t* 3 07/20/2017 Route: ORAL Sig: Take 1 tablet by mouth daily at bedtime. HYDROCODONE 5 MG-ACETAMINOPHEN 325 M* 180 * 0 08/19/2017 09/18/2017 Class: Print RX Cmt: ID number- [id number] Route: ORAL Sig: Take 1 tablet by mouth twice daily as needed for up to 30 days. Earliest Fill Date: 08/19/17 HYDROCODONE 5 MG-ACETAMINOPHEN 325 M* 180 * 0 09/18/2017 10/18/2017 Class: Print RX Cmt: ID number- [id number] Route: ORAL Sig: Take 1 tablet by mouth twice daily as needed for up to 30 days. Earliest Fill Date: 09/18/17 Medications Discontinued During This Encounter simvastatin (ZOCOR) 20 mg tablet 90 t* 3 07/26/2016 07/20/2017 Route: ORAL Sig: Take 1 tablet by mouth daily at bedtime. Disc: Reason for discontinue is not on file. PROCTOSOL HC 2.5 % rectal cream 85.0* 2 12/24/2016 07/20/2017 Sig: Apply twice daily as needed to hemorrhoids Disc: Reason for discontinue is not on file. amLODIPine (NORVASC) 10 mg tablet 90 t* 3 08/09/2016 07/20/2017 Route: ORAL Sig: Take 1 tablet by mouth once daily. Disc: Reason for discontinue is not on file. HYDROcodone-acetaminophen (NORCO) 5-* 180 * 0 04/25/2017 07/20/2017 Class: Print RX Cmt: ID number- [id number] Route: ORAL Sig: Take 1 tablet by mouth twice daily as needed. Disc: Reason for discontinue is not on file. Level of Service: [facility] PATIENT VISIT LEVEL 4 [[id number]] Disposition: Return in about 3 months (around 10/17/2017). Follow-up and Disposition History Recorded Letter Text [facility], [facility], [place] [id number] Controlled Substance Agreement GOAL The purpose of this Agreement is to prevent misunderstandings about certain medicines you will be taking for pain management. It will help both you and your doctor to comply with laws regarding controlled pharmaceuticals. I understand that this Agreement is essential to the trust and confidence necessary in a doctor/patient relationship and that my doctor undertakes to treat me based on this Agreement. AGREEMENT I, Mr. Peg Baez, understand that if I break this Agreement, my doctor will stop prescribing these pain-control medicines. In this case, my doctor will taper off the medicine over a period of several days, as necessary, to avoid withdrawal symptoms. A drug-dependence treatment program may be recommended. In certain cases, you may be terminated as a patient. 1. I will communicate fully with my doctor about the character and intensity of my pain, its effect on my daily life, and how well the medicine is helping to relieve the pain. 2. I will not use any illegal controlled substances, including marijuana, cocaine, etc. Random urine and/or serum toxicology screens may be requested; this testing may be unannounced and occur at any time. I agree that I will submit to a blood or urine test if requested by my doctor to determine my compliance with my program of pain control medicine. 3. I will not share, sell or trade my medication with anyone. 4. I will not attempt to obtain any controlled substance from any other doctor, other than a covering physician. 5. I will safeguard my pain medicine from loss or theft. Lost or stolen medicines may not be replaced. 6. I agree that refills of my prescriptions for pain medicine will be made only at the time of an office visit or during regular office hours. No refills will be available on evenings or weekends. 7. I authorize the doctor and my pharmacy to cooperate fully with any city, state or federal law enforcement agency, including this state's Board of Pharmacy, in the investigation of any possible misuse, sale, or other diversion of my medication. I authorize my doctor to provide a copy of this Agreement to my pharmacy. I agree to waive any applicable privilege or right of privacy or confidentiality with respect to these authorizations. Pharmacy: Location: Phone number: 8. I agree that I will use my medicine at a rate no greater than the prescribed rate and that use of my medicine at a greater rate may result in my being without medication for a period of time. 9. If legal authorities have questions concerning treatment, for example, if a patient were obtaining medications at several pharmacies, all confidentiality is waived and the authorities may be given full access to the [facility] Records of narcotic administration. 10. I agree to follow these guidelines and they have been fully explained to me. All of my questions and concerns regarding treatment have been answered. A copy of this document has been given to me. Patient: Date: July 20, 2017 Peg Baez [id number] Physician: Date: July 20, 2017 Ian Hathaway PA-C Encounter Status:Closed by Ian HATHAWAY PA-C on 07/20/17 CNPN Observed: 07/20/2017 Status: COMPLETED Source: [place] 12:00 AM [facility] REPOSITORY Telephone (FAMPWS) PEG BAEZ ([id number]) 1935 M NFR Date Time Provider Department 07/20/17 Ian HATHAWAY) [facility] During your visit today, we recorded the following information about you: Bipin Becerra RN 07/20/2017 11:12 AM Signed Patient calls in stating he remembers his Zocor getting decreased in 07/2016 but he wasn't sure why. TE on 07/23/16: There is a drug interaction between Simvastatin and Amlodipine. Consider reducing dose to Simvastatin 20mg daily. Since renal function is worsening, it may be recommended to switch statin in future (CrCl = 31mL/min and renal dosing for Simvastatin begins at CrCl ANDlt; 30mL/min). ? Source: Rosalia-Comp: Avoid the concurrent use of amlodipine with simvastatin when possible. If used together, avoid doses of simvastatin greater than 20 mg/day, and monitor closely for signs of HMG-CoA reductase inhibitor toxicity (e.g., myositis, rhabdomyolysis). He would like to know if you are still going to go ahead and increase to 40 mg. Please advise. Bipin Becerra RN ? Ian Hathaway PA-C 07/20/2017 5:33 PM Signed Please keep dose at 20mg. Is he interested in possibly changing Amlopidine r/t his leg edema? Thanks, ANDRIA Tse LPN 07/21/2017 9:32 AM Signed PATIENT NOTIFIED OF SAME. Patient stated in regards to changing the Amlopidine ANDquot;Leave it up to Prasanth. He knows better than I about trying a different medication.ANDquot; Ian Hathaway PA-C 07/21/2017 2:09 PM Signed Cut norvasc in half to 5mg daily Double lisinopril to 20mg. Rx sent in for 20mg tabs. Recheck in 2 weeks in the office ThanksPrasanth PA-C M Gregory Barton, PA-C 07/21/2017 2:09 PM Signed Addended by: Ian HATHAWAY PA-C on: 07/21/2017 02:09 PM Modules accepted: Orders Allergies As of Date: 07/20/2017 Noted Allergy Reaction CALAN (VERAPAMIL HCL) 05/18/2005 DOXAZOSIN 08/18/2007 2 - Rash FLOMAX (TAMSULOSIN HCL) 05/18/2005 HCTZ (HYDROCHLOROTHIAZIDE) 07/27/2007 2 - Rash INDERAL (PROPRANOLOL HCL) 05/18/2005 LIPITOR (ATORVASTATIN CALCIUM) 05/18/2005 NIASPAN (NIACIN (ANTIHYPERLIPIDEM*05/18/2005 QUININE 05/18/2005 Date Reviewed: 07/20/2017 Reviewed by: Shaina Bansal LPN - Fully Assessed Reason for Visit: Medication Question [1478] Primary Visit Diagnosis:Bilateral leg edema [R60.0] Other Visit Diagnoses:Essential hypertension, benign [I10] CKD (chronic kidney disease) stage 3, GFR 30-59 ml/min [N18.3] Order(s):simvastatin (ZOCOR) 20 mg tabletTake 1 tablet by mouth daily at bedtime.Disp: 90 tabletRfl: 3 amLODIPine (NORVASC) 10 mg tabletTake 0.5 tablets by mouth once daily.Disp: 90 tabletRfl: 3 lisinopril (PRINIVIL) 20 mg tabletTake 1 tablet by mouth once daily.Disp: 30 tabletRfl: 2 Prescriptions as of 07/20/2017 Sig: AMLODIPINE 10 MG TABLET Take 0.5 tablets by mouth onc* LISINOPRIL 20 MG TABLET Take 1 tablet by mouth once d* HYDROCORTISONE 2.5 % TOPICAL * Apply one application to hemo* HYDROCODONE 5 MG-ACETAMINOPHE* Take 1 tablet by mouth twice * CLOTRIMAZOLE-BETAMETHASONE 1 * Apply 1 application to affect* HYDROCODONE 5 MG-ACETAMINOPHE* Take 1 tablet by mouth twice * HYDROCODONE 5 MG-ACETAMINOPHE* Take 1 tablet by mouth twice * SIMVASTATIN 20 MG TABLET Take 1 tablet by mouth daily * CHOLECALCIFEROL (VITAMIN D3) * Take 1 capsule by mouth once * WARFARIN 5 MG TABLET Take 0.5 tablets by mouth onc* TRAZODONE 50 MG TABLET TAKE 1 TABLET BY MOUTH DAILY* OMEPRAZOLE 20 MG CAPSULE,FRANCA* Take 1 capsule by mouth once * BUMETANIDE 2 MG TABLET Take 0.5 tablets by mouth onc* DIPHENHYDRAMINE 25 MG CAPSULE Take 1 capsule by mouth every* CYANOCOBALAMIN (VIT B-12) 1,0* Dissolve 1 tablet under the t* POLYETHYLENE GLYCOL (BULK) 10* 17 g once daily. 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 Other and unspecified disc disorder of unspecif* 11/12/2015 More... 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] INVALID FOR*11/12/2015 Actinic skin damage [L57.8] INVALID FOR*11/12/2015 Solar Lentigines [L81.4] INVALID FOR*11/12/2015 Seborrheic Keratoses [L82.1] INVALID FOR*11/12/2015 Surgical Scars [L90.5] INVALID FOR*11/12/2015 Edema [R60.9] INVALID FOR*11/12/2015 Irritant contact dermatitis [L24.9] INVALID FOR*11/12/2015 Open wound(s) (multiple) of unspecified site(s)*INVALID FOR*08/29/2013 Postinflammatory skin changes: fading discolora*INVALID FOR*11/12/2015 Back pain [M54.9] INVALID FOR* Sciatica [M54.30] INVALID FOR* Lumbar disc displacement without myelopathy [M5*INVALID FOR* Lumbar facet arthropathy [M46.96] INVALID FOR* Lumbar spondylosis [M47.816] INVALID FOR* Lumbar stenosis [M48.061] INVALID FOR* Balanitis [N48.1] INVALID FOR*11/12/2015 Eczema intertrigo [L30.4] INVALID FOR*11/12/2015 Eczematous dermatitis [L30.9] INVALID FOR*11/12/2015 Fixed drug eruption [L27.1] INVALID FOR*11/12/2015 BPH (benign prostatic hyperplasia) [N40.0] INVALID FOR* CKD (chronic kidney disease) stage 3, GFR 30-59*INVALID FOR* Bradycardia [R00.1] INVALID FOR* 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 FOR* L-S radiculopathy [M54.17] INVALID FOR* PSVT (paroxysmal supraventricular tachycardia) *INVALID FOR* Status post placement of implantable loop recor*INVALID FOR*11/12/2015 Pain in right knee [M25.561] INVALID FOR*11/12/2015 Dependent edema [R60.9] INVALID FOR* Chronic anticoagulation [Z79.01] INVALID FOR* Paroxysmal atrial fibrillation (HCC) [I48.0] INVALID FOR* Status post placement of implantable loop recor*INVALID FOR* Sick sinus syndrome (HCC) [I49.5] INVALID FOR* Old WV (myocardial infarction) [I25.2] INVALID FOR* Acute diastolic CHF (congestive heart failure) *INVALID FOR* Complete heart block (HCC) [I44.2] INVALID FOR* More... Prediabetes [R73.03] INVALID FOR* Pacemaker [Z95.0] INVALID FOR* More... Prescriptions ordered this encounter Disp Refills Start End SIMVASTATIN 20 MG TABLET 90 t* 3 07/20/2017 Route: ORAL Sig: Take 1 tablet by mouth daily at bedtime. AMLODIPINE 10 MG TABLET 90 t* 3 07/21/2017 Class: Med Update Route: ORAL Sig: Take 0.5 tablets by mouth once daily. LISINOPRIL 20 MG TABLET 30 t* 2 07/21/2017 Route: ORAL Sig: Take 1 tablet by mouth once daily. Medications Discontinued During This Encounter simvastatin (ZOCOR) 40 mg tablet 90 t* 3 07/20/2017 07/20/2017 Route: ORAL Sig: Take 1 tablet by mouth daily at bedtime. Disc: Reason for discontinue is not on file. lisinopril (ZESTRIL, PRINIVIL) 10 mg* 90 t* 3 06/07/2017 07/21/2017 Route: ORAL Sig: Take 10 mg by mouth once daily. Disc: Reason for discontinue is not on file. amLODIPine (NORVASC) 10 mg tablet 90 t* 3 07/20/2017 07/21/2017 Class: [facility] Route: ORAL Sig: Take 1 tablet by mouth once daily. Disc: Reason for discontinue is not on file. Letter Text [facility] [address] [place], [place] [address] [address] Loyd Plascencia [address] [address] RE: Peg Baez [address] [place] [id number] Clinic #: [id number] 07/21/[address] Plascencia, Thank you for your excellent care of our patients. Mr. Baez has had an increase in leg edema since his amlodipine was increased without an increase in weight or evidence of CHF. 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 I am lowering his amlodipine from 10mg to 5 mg and may discontinue if he tolerates to see if we can resolve some of his edema. His last EF was 47% 01/24/17 echo. I am increasing Lisinopril from 10mg to 20 mg and will follow his blood pressure in 2 weeks. I will be following his creatine. Please let me know if you have any objections to this plan. Ian Morales PA-C Encounter Status:Closed by Ian HATHAWAY PA-C on 07/20/17 BASIC METABOLIC PANL Collected: 07/18/2017 Status: F Source: [place] 7:[address] [facility] REPOSITORY TYPE CODE TESTS RESULT OUT OF REFERENCE UNITS RANGE LAB GLU 74-99 mg/dL Glucose 97 Result Comment: The [place] Diabetes Association (ADA) provides guidance for cutoff values for fasting glucose and random glucose. The ADA defines fasting as no caloric intake for at least 8 hours. Fas ting plasma glucose results between 100 to 125 mg/dL indicate increased risk for diabetes (prediabetes). Fasting plasma glucose results greater than or equal to 126 mg/dL meet the criteria for diagnosis of diabetes. In the absence of unequivocal hyperglycemia, results should be confirmed by repeat testing. In a patient with classic symptoms of hyperglycemia or hyperglycemic crisis, random plasma glucose results greater than or equal to 200 mg/dL meet the criteria for diagnosis of diabetes. Reference: Standards of Medical Care in Diabetes 2016, [place] Diabetes Association. Diabetes Care. 2016.39(Suppl 1). LAB BUN 9-24 mg/dL BUN High 27 LAB CRET 0.73-1.22 mg/dL Creatinine High 1.82 LAB NA 136-144 mmol/L Sodium 141 LAB K 3.7-5.1 mmol/L Potassium 4.5 LAB CL 97-105 mmol/L Chloride 103 LAB CO2 22-30 mmol/L CO2 24 LAB AGAP 9-18 mmol/L Anion Gap 14 LAB CA 8.5-10.2 mg/dL Calcium, Total 9.1 LAB GFRAA eGFR- Amer. 43 LAB GFRNAA . eGFR-All Other Races 36 Result Comment: eGFR (Estimated GFR) Units of measure: mL/min/1.73 meters squared eGFR is derived from the reexpressed MDRD Study equation using the following parameters: serum creatinine, age, gender and race. The creatinine assay has been calibrated to be traceable to IDMS. An eGFR <60 mL/min/1.73m2 for >3 months is consistent with chronic kidney disease. Refer to KDOQI guidelines for clinical interpretation. In patients with unstable renal function, e.g. those with acute kidney injury, the eGFR may not accurately reflect actual GFR. Performed By: #### BMP #### [facility] [address] [place] [address] PROTIME W/INR Collected: 06/30/2017 Status: F Source: SUSAN FINGERSTICK 8:16 AM [facility] REPOSITORY TYPE CODE TESTS RESULT OUT OF REFERENCE UNITS RANGE LAB L9200.1001 11.9-14.4 SEC High PROTIME ISTAT 32.0 Result Comment: Reference Range 11.9 - 14.4 LAB L9200.2000 Normal INR ISTAT 2.80 Result Comment: Critical Value > 3.5 Performed By: #### L9200.0000 #### [facility] Point of Care [address] [place] [address] OFFICE VISIT REPORT Observed: 06/23/2017 Status: F Source: SUSAN 9:29 AM [facility] REPOSITORY [facility] [address] [place] [address] OFFICE VISIT Date of Service: 06/22/17 MR#: [id number] Acct: [id number] Patient: PEG BAEZ Rep #: [id number] : 1935 Provider: Elidia Pacheco Age/Sex: 81/M Location: BMS.G Status: Signed Device Device Date Interviewed: 06/22/17 Follow-up Location: remote Interview Reason: scheduled follow up Athletic Shoe Designer: Realius Name: Simona [id number] Model: [id number] Serial #: [id number] Implant Date: 01/26/17 Year(s): 0 Implant Physician: Dr. Loyd Plascencia Patient Characteristics AV/Node Indication: Second degree AV block, Complete heart block Ejection fraction %: 55 to 59 (01/25/2017) By: Echo Underlying rhythm: Mobitz 2 second degree AV block Pacemaker Dependent: No Device Characteristics Device: Dual Chamber Type: Pacemaker Remote Follow-Up: Latitude Leads Lead #1 Athletic Shoe Designer Lead 1: [employer] Model Lead 1: 8eighty Wearevity MRI 7741/52 Serial# Lead 1: [id number] Date Implanted Lead 1: 01/26/17 Position Lead 1: RA Lead #2 Athletic Shoe Designer Lead 2: [employer] Model Lead 2: 8eighty Wearevity MRI 7745/59 Serial# Lead 2: [id number] Date Implanted Lead 2: 01/26/17 Position Lead 2: RV Diagnostics Pacing % RA Pacin % RV Pacin Mode Switching Total # Episodes: 0 % Mode switched: 0 Arrhythmias Non-Sust Episodes: 0 Measurements Battery Magnet Rate (bmp): 100 Battery Status: MANDO Predicted Remaining Longevity (months or years): 8.5 years RA Measurements Impedance (Ohms): 670 Threshold Voltage: 0.6 @ PW(ms): 0.4 RV Measurements Impedance (Ohms): 1,016 Threshold Voltage: 0.5 @ PW(ms): 0.4 Miller Settings Miller Settings Pacemaker Mode DDD Lower Rate Limit (bpm) 60 Hysteresis Rate (bpm) Max Track Rate (bpm) 130 Max Sensor Rate (bpm) Max AV Delay (msec) Max PV Delay (msec) Max PVARP (msec) 300 Output/Sensing V/PW (ms) 2.0/0.4 auto1.0/0.4 Sensitivity RA RV LV AGC 0.25 0.6 Comments: Comments Summary Comments: Remote Dual Chamber Pacemaker Evaluation: Remote interrogation shows atrial burden 0% and no VHR episodes since 03/15/17. Presenting rhythm shows AV sequential paced @ 62 ppm. PLANTING SUPERVISOR=99%. Battery longevity aprpox 8.5 yrs. Lead impedances and auto pace/sense thresholds remain stable. Normal remote PPM function. Pt notified remote transmission received and next f/u appt scheduled for in 3 mos. 06/22/17 1851 <Electronically signed by Elidia Pacheco > Date Elidia Pacheco 01/04/18 0929<Electronically signed by Loyd Plascencia MD> Octaviomeshajarrod Signature: Date (if applicable) Loyd Plascencia MD CC: OBSOLETE Observed: 06/16/2017 Status: COMPLETED Source: [place] 12:00 AM [facility] REPOSITORY Refill (FAMPWS) PEG BAEZ ([id number]) 1935 M NFR Date Time Provider Department 06/16/17 [facility] During your visit today, we recorded the following information about you: Allergies As of Date: 06/16/2017 Noted Allergy Reaction CALAN (VERAPAMIL HCL) 05/18/2005 DOXAZOSIN 08/18/2007 2 - Rash FLOMAX (TAMSULOSIN HCL) 05/18/2005 HCTZ (HYDROCHLOROTHIAZIDE) 07/27/2007 2 - Rash INDERAL (PROPRANOLOL HCL) 05/18/2005 LIPITOR (ATORVASTATIN CALCIUM) 05/18/2005 NIASPAN (NIACIN (ANTIHYPERLIPIDEM*05/18/2005 QUININE 05/18/2005 Date Reviewed: 06/07/2017 Reviewed by: Shaina Bansal LPN - Fully Assessed Reason for Visit: Refill Request [94] Prescriptions as of 06/16/2017 Sig: LISINOPRIL 10 MG TABLET Take 10 mg by mouth once adams* CHOLECALCIFEROL (VITAMIN D3) * Take 1 capsule by mouth once * HYDROCODONE 5 MG-ACETAMINOPHE* Take 1 tablet by mouth twice * WARFARIN 5 MG TABLET Take 0.5 tablets by mouth onc* TRAZODONE 50 MG TABLET TAKE 1 TABLET BY MOUTH DAILY* OMEPRAZOLE 20 MG CAPSULE,FRANCA* Take 1 capsule by mouth once * PROCTOSOL HC 2.5 % TOPICAL CR* Apply twice daily as needed t* BUMETANIDE 2 MG TABLET Take 0.5 tablets by mouth onc* AMLODIPINE 10 MG TABLET Take 1 tablet by mouth once d* SIMVASTATIN 20 MG TABLET Take 1 tablet by mouth daily * DIPHENHYDRAMINE 25 MG CAPSULE Take 1 capsule by mouth every* CYANOCOBALAMIN (VIT B-12) 1,0* Dissolve 1 tablet under the t* POLYETHYLENE GLYCOL (BULK) 10* 17 g once daily. 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 Other and unspecified disc disorder of unspecif* 11/12/2015 More... 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] INVALID FOR*11/12/2015 Actinic skin damage [L57.8] INVALID FOR*11/12/2015 Solar Lentigines [L81.4] INVALID FOR*11/12/2015 Seborrheic Keratoses [L82.1] INVALID FOR*11/12/2015 Surgical Scars [L90.5] INVALID FOR*11/12/2015 Edema [R60.9] INVALID FOR*11/12/2015 Irritant contact dermatitis [L24.9] INVALID FOR*11/12/2015 Open wound(s) (multiple) of unspecified site(s)*INVALID FOR*08/29/2013 Postinflammatory skin changes: fading discolora*INVALID FOR*11/12/2015 Back pain [M54.9] INVALID FOR* Sciatica [M54.30] INVALID FOR* Lumbar disc displacement without myelopathy [M5*INVALID FOR* Lumbar facet arthropathy [M46.96] INVALID FOR* Lumbar spondylosis [M47.816] INVALID FOR* Lumbar stenosis [M48.061] INVALID FOR* Balanitis [N48.1] INVALID FOR*11/12/2015 Eczema intertrigo [L30.4] INVALID FOR*11/12/2015 Eczematous dermatitis [L30.9] INVALID FOR*11/12/2015 Fixed drug eruption [L27.1] INVALID FOR*11/12/2015 BPH (benign prostatic hyperplasia) [N40.0] INVALID FOR* CKD (chronic kidney disease) stage 3, GFR 30-59*INVALID FOR* Bradycardia [R00.1] INVALID FOR* 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 FOR* L-S radiculopathy [M54.17] INVALID FOR* PSVT (paroxysmal supraventricular tachycardia) *INVALID FOR* Status post placement of implantable loop recor*INVALID FOR*11/12/2015 Pain in right knee [M25.561] INVALID FOR*11/12/2015 Dependent edema [R60.9] INVALID FOR* Chronic anticoagulation [Z79.01] INVALID FOR* Paroxysmal atrial fibrillation (HCC) [I48.0] INVALID FOR* Status post placement of implantable loop recor*INVALID FOR* Sick sinus syndrome (HCC) [I49.5] INVALID FOR* Old WV (myocardial infarction) [I25.2] INVALID FOR* Acute diastolic CHF (congestive heart failure) *INVALID FOR* Complete heart block (HCC) [I44.2] INVALID FOR* More... Prediabetes [R73.03] INVALID FOR* Encounter Status:Closed by MICHAEL BLOUNT MA on 06/16/17 ALLERGIES ALLERGIES DATE TYPE / NAME / CODE REACTION SEVERITY SOURCE CODE Drug lisinopril/[id number](RX Rash SV [facility] [place] 8 Allergy/4 NORM) [facility] [id number]( [facility] [place]) Drug niacin/[id number](RXNORM Unknown Unknown [place] 8 Allergy/4 ) [facility] [id number]( [facility]) Drug hydrochlorothiazide/F006 Unknown Unknown [place] 8 Allergy/4 620492(RXNORM) Community [id number]( [facility]) Drug quinine/[id number](RXNOR Unknown Unknown [place] 8 Allergy/4 M) Community [id number]( [facility] [place]) Drug doxazosin/[id number](RXN Unknown Unknown [place] 8 Allergy/4 ORM) [id number] verapamil/[id number](RXN Unknown Unknown [place] 8 Allergy/4 ORM) [id number][facility] Drug propranolol/[id number](R Unknown Unknown [employer] [place] 8 Allergy/4 XNORM) [id number][facility] Drug tamsulosin/[id number](RX Unknown Unknown [employer] [place] 8 Allergy/4 NORM) Community [id number]( [facility] [place]) Drug atorvastatin/[id number]( Unknown Unknown [employer] [place] 8 Allergy/4 RXNORM) [id number][facility] DRUG AMLODIPINE BESYLATE INTOLERANCE [place] 8 INGREDI/4 Clinic Main [id number]( [place] [facility]ository [facility]) DRUG LISINOPRIL RASH [place] 8 INGREDI/4 Clinic Main [id number]( [place] [facility]) DRUG DOXAZOSIN RASH [place] 8 INGREDI/4 Clinic Main [id number]( [place] [facility]) DRUG HYDROCHLOROTHIAZIDE RASH [place] 8 INGREDI/4 Clinic Main [id number]( [place] [facility]) DRUG VERAPAMIL HCL [place] 5 INGREDI/4 Clinic Main [id number]( [place] [facility]) DRUG TAMSULOSIN HCL [place] 5 INGREDI/4 Clinic Main [id number]( [place] [facility] Repository [facility]) DRUG PROPRANOLOL HCL [place] 5 INGREDI/4 Clinic Main [id number]( [place] [facility] Rep[facility]) DRUG ATORVASTATIN CALCIUM [place] 5 INGREDI/4 Clinic Main [id number]( [place] [facility] Repository [facility]) DRUG/4195 NIACIN [place] 5 [address](SNO (ANTIHYPERLIPIDEMIC) Clinic Main MED CT) [place] Repository DRUG QUININE [place] 5 INGREDI/4 [facility] Main [id number]( [place] [facility] Repository [facility]) ENCOUNTERS ENCOUNTERS ADMIT/DISCHARGE ACCOUNT ADMITTING ENCOUNTER LOCATION SOURCE NUMBER CLASS 06/05/2018 [id number] Ambulatory [facility] ing:LAB Repository 05/30/2018/05/30/20 [id number] Ambulatory [facility]:B [facility] Repository 05/05/2018/05/22/20 [id number] Ambulatory [address] ing:LAB Repository 04/24/2018/04/25/20 [id number] Ambulatory [address] Repository 04/20/2018/04/20/20 [id number] Ambulatory [address] Repository 04/08/2018/04/08/20 [id number] Emergency [address] ing:ED Repository 04/05/2018/04/05/20 [id number] Ambulatory [facility]:B [place] [facility] Repository 03/31/2018/03/31/20 [id number] Ambulatory [address] Hospital ing:LAB Repository 02/23/2018/02/24/20 [id number] Ambulatory [address] ing:LAB Repository 01/24/2018/01/25/20 [id number] Ambulatory [address] ing:LAB Repository 01/18/2018/01/20/20 [id number] Ambulatory [address] Repository 01/13/2018/01/14/20 [id number] Ambulatory [address] Repository 12/27/2017/12/28/19 [id number] Ambulatory BMSBuilding:B [facility] Repository 12/27/2017/12/28/19 [id number] Ambulatory [address] Hospital ing:LAB Repository 12/13/2017/12/15/19 [id number] Ambulatory [address] Repository 11/25/2017/11/26/19 [id number] Ambulatory [place] ing:LAB Repository 11/22/2017/11/23/19 [id number] Ambulatory [address] Repository 11/03/2017/11/05/19 [id number] Ambulatory [address] Repository 11/01/2017/11/02/19 [id number] Ambulatory [place] [facility] ing:LAB Repository 10/17/2017/10/18/19 [id number] Ambulatory [address] Repository 10/17/2017/10/19/19 [id number] Ambulatory [address] Repository 10/13/2017/10/14/19 [id number] Ambulatory [address] Repository 10/05/2017/10/06/19 [id number] Ambulatory Susan [address] ing:LAB Repository 09/26/2017/09/27/19 [id number] Ambulatory BMSBuilding:B [facility] Repository 09/13/2017/09/15/19 [id number] Ambulatory [address] Repository 09/06/2017 [id number] Ambulatory BMSBuilding:B [facility] Repository 09/06/2017/09/07/19 [id number] Ambulatory Susan [facility] ing:LAB Repository 08/30/2017/09/01/19 [id number] Ambulatory [address] Repository 08/18/2017/08/19/19 [id number] Ambulatory BMSBuilding:B [place] [facility] Repository 08/16/2017/08/19/19 [id number] Ambulatory [address] Repository 08/10/2017/08/10/19 [id number] Ambulatory Susan [facility] ing:LAB Repository 08/04/2017/08/04/19 [id number] Ambulatory [address] Repository 07/31/2017/07/31/19 [id number] Ambulatory [address] Repository 07/27/2017/07/28/19 [id number] Ambulatory [address] Repository 07/20/2017/07/20/19 [id number] Ambulatory [address] Repository 07/18/2017/07/18/19 [id number] Ambulatory [address] Repository 06/30/2017/06/30/19 [id number] Ambulatory Susan Susan 18 [facility] ing:LAB Repository 06/22/2017/06/22/19 [id number] Ambulatory BMSBuilding:B [place] [facility] Repository PAYERS PAYERS ENCOUNTER GUARANTOR PAYER SUBSCRIBER SOURCE 06/05/2018 PEG Crouch Primary PEG R Susan [id number] LATTER[place] Insurance:MEDICARE LESTERDOB: Community [place] [facility] [id number] [address]Iks: Number: Repository [id number] () Date:2017-07-22 06/05/2018 Secondary PEG R [facility] Insurance:AARPPolicy LESTERDOB: Community Number: [id number] [facility] [id number] Repository Date:3632-51-48[address], [place] [address]GO: 06/05/2018 Tertiary NOT GIVENUNK [facility] [place] Insurance:SELF PAY [facility] Number: Effective Repository Date:2018-05-22 05/30/2018 PEG Crouch Primary PEG R [facility] [id number] LATTER-DAY Insurance:MEDICARE LESTERDOB: [facility] [place] [facility] [id number] Service Unit [address]Zxj: Number: Repository [id number] () Date:2017-08-18 05/30/2018 Secondary PEG R Susan Insurance:AARPPolicy LESTERDOB: Community Number: [id number] Hospital [id number] Repository Date:4133-42-69GX [address], [place] [address]QM: 05/30/2018 Tertiary NOT GIVENUNK [facility] [place] Insurance:SELF PAY [facility] Number: Effective Repository Date:2018-05-25 05/05/2018 PEG Crouch Primary PEG R [facility] [id number] LATTER[place] Insurance:MEDICARE LESTERDOB: Community [place] [facility] [id number] Service Unit [address]Nhq: Number: Repository [id number] (HP) Date:2017-07-22 05/05/2018 Secondary PEG R Susan Insurance:AARPPolicy LESTERDOB: Community Number: [id number] Hospital [id number] Repository Date:4321-13-03WL [facility] [place], [place] [address]FV: 05/05/2018 Tertiary NOT GIVENUNK [facility] [place] Insurance:SELF PAY [facility] Number: Effective Repository Date:2018-04-20 04/08/2018 PEG R Primary PEG R [facility] [id number] LATTER-DAY Insurance:MEDICARE LESTERDOB: Community [place] [facility] [id number] Service Unit [address]Mzn: Number: Repository [id number] (HP) Date:2018-04-08 04/08/2018 Secondary PEG R Susan Insurance:AARPPolicy LESTERDOB: Community Number: [id number] [facility] [id number] Repository Date:1771-14-67[address], [place] [address]VX: 04/08/2018 Tertiary NOT GIVENUNK [facility] [place] Insurance:SELF PAY [facility] Number: Effective Repository Date:2018-04-08 04/05/2018 PEG R Primary PEG R Susan [id number] LATTER[place]DAY Insurance:MEDICARE LESTERDOB: Community [place] [facility] [id number] Service Unit [address]Ycf: Number: Repository [id number] () Date:2017-12-28 04/05/2018 Secondary PEG R [facility] [place] Insurance:AARPPolicy LESTERDOB: Community Number: [id number] Hospital [id number] Repository Date:0735-16-10[address]ZQYVB, [place] [address]TL: 04/05/2018 Tertiary NOT GIVENUNK Susan Insurance:SELF PAY [facility] Number: Effective Repository Date:2018-04-05 03/31/2018 PEG R Primary PEG R Susan [id number] LATTER-DAY Insurance:MEDICARE LESTERDOB: Community [place] [facility] [id number] Service Unit [address]Lnz: Number: Repository [id number] (HP) Date:2017-07-22 03/31/2018 Secondary PEG R Susan Insurance:AARPPolicy LESTERDOB: Community Number: [id number] Hospital [id number] Repository Date:6075-32-16DZ [facility] 272580FYONHBR, [place] [address]WU: 03/31/2018 Tertiary NOT GIVENUNK Susan Insurance:SELF PAY [facility] Number: Effective Repository Date:2018-03-22 02/23/2018 PEG R Primary PEG R [facility] [id number] LATTER-DAY Insurance:MEDICARE LESTERDOB: Community [place] [facility] [id number] Service Unit [address]Cna: Number: Repository [id number] () Date:2017-07-22 02/23/2018 Secondary PEG R Susan Insurance:AARPPolicy LESTERDOB: Community Number: [id number] Hospital [id number] Repository Date:0848-82-12AK [facility] [address]7637WHPBTDR, [place] [address]XX: 02/23/2018 Tertiary NOT GIVENUNK [facility] [place] Insurance:SELF PAY [facility] Number: Effective Repository Date:2018-02-21 01/24/2018 PEG R Primary PEG R [facility] [place] [id number] LATTER-DAY Insurance:MEDICARE LESTERDOB: Community [place] [facility] [id number] Service Unit [address]Ama: Number: Repository [id number] (HP) Date:2017-07-22 01/24/2018 Secondary PEG R Susan Insurance:AARPPolicy LESTERDOB: Community Number: [id number] Hospital [id number] Repository Date:7358-16-40IX [facility] [address]1984CWVBDFS, [place] [address]RN: 01/24/2018 Tertiary NOT GIVENUNK Susan Insurance:SELF PAY [facility]: Effective Repository Date:2018-01-19 12/27/2017 PEG R Primary PEG R Susan [id number] LATTER[place] Insurance:MEDICARE LESTERDOB: Community [place] [facility] [id number] Service Unit [address]Hre: Number: Repository [id number] (HP) Date:2017-10-05 12/27/2017 Secondary PEG R [facility] [place] Insurance:AARPPolicy LESTERDOB: Community Number: [id number] Hospital [id number] Repository Date:3866-44-68RM [facility] [address]LG[place]FTK, [place] [address]VJ: 12/27/2017 Tertiary NOT GIVENUNK [facility] [place] Insurance:SELF PAY [facility] Number: Effective Repository Date:2017-12-27 12/27/2017 PEG R Primary PEG R Susan [id number] LATTER[place] Insurance:MEDICARE LESTERDOB: Community [place] [facility] [id number] Service Unit [address]Ggg: Number: Repository [id number] (HP) Date:2017-07-22 12/27/2017 Secondary PEG R [facility] [place] Insurance:AARPPolicy LESTERDOB: Community Number: [id number] Hospital [id number] Repository Date:4827-58-97IY [address], [place] [address]IA: 12/27/2017 Tertiary NOT GIVENUNK Susan Insurance:SELF PAY [facility] Number: Effective Repository Date:2017-12-16 11/25/2017 PEG R Primary PEG R Susan [id number] LATTER[place] Insurance:MEDICARE LESTERDOB: Community [place] [facility] [id number] Service Unit [address]Qsr: Number: Repository [id number] (HP) Date:2017-07-22 11/25/2017 Secondary PEG R Susan Insurance:AARPPolicy LESTERDOB: Community Number: [id number] Hospital [id number] Repository Date:2833-34-87CO [facility] 519635YX[place]X, [place] [address]PX: 11/25/2017 Tertiary NOT GIVENUNK [facility] [place] Insurance:SELF PAY [facility] Number: Effective Repository Date:2017-11-17 11/01/2017 PEG R Primary PEG R [facility] [id number] LATTER[place] Insurance:MEDICARE LESTERDOB: Community [place] [facility] [id number] Service Unit [address]Duc: Number: Repository [id number] (HP) Date:2017-07-22 11/01/2017 Secondary PEG R [facility] [place] Insurance:AARPPolicy LESTERDOB: Community Number: [id number] Hospital [id number] Repository Date:9827-99-99LG [address]RLSXIWF, [place] [address]JX: 11/01/2017 Tertiary NOT GIVENUNK [facility] [place] Insurance:SELF PAY [facility] Number: Effective Repository Date:2017-10-18 10/05/2017 PEG R Primary PEG R Susan [id number] LATTER[place] Insurance:MEDICARE LESTERDOB: Community [place] [facility] [id number] Service Unit [address]Gov: Number: Repository [id number] (HP) Date:2017-07-22 10/05/2017 Secondary PEG R Susan Insurance:AARPPolicy LESTERDOB: Community Number: [id number] Hospital [id number] Repository Date:0871-51-26KV [address]HHZFBNL, [place] [address]MM: 10/05/2017 Tertiary NOT GIVENUNK Susan Insurance:SELF PAY [facility] Number: Effective Repository Date:2017-09-19 09/26/2017 PGE R Primary PEG R [facility] [id number] LATTER-DAY Insurance:MEDICARE LESTERDOB: Community [place] [facility] [id number] Service Unit [address]Lyv: Number: Repository [id number] (HP) Date:2017-06-22 09/26/2017 Secondary PEG R [facility] [place] Insurance:AARPPolicy LESTERDOB: Community Number: [id number] Hospital [id number] Repository Date:7315-82-28FM [facility] 308343LJIHYLM, [place] [address]YJ: 09/26/2017 Tertiary NOT GIVENUNK [facility] [place] Insurance:SELF PAY [facility] Number: Effective Repository Date:2017-09-26 09/06/2017 PEG R Primary PEG R Susan [id number] LATTER[place] Insurance:MEDICARE LESTERDOB: Community [place] [facility] [id number] Service Unit [address]Tuw: Number: Repository [id number] (HP) Date:2017-09-06 09/06/2017 Secondary PEG R Susan Insurance:AARPPolicy LESTERDOB: Community Number: [id number] Hospital [id number] Repository Date:3520-33-21TW [address]AWZLAIV, [place] [address]UY: 09/06/2017 Tertiary NOT GIVENUNK Susan Insurance:SELF PAY [facility] Number: Effective Repository Date:2017-09-06 09/06/2017 PEG R Primary PEG R [facility] [id number] LATTER-DAY Insurance:MEDICARE LESTERDOB: Community [place] [facility] [id number] Service Unit [address]Imr: Number: Repository [id number] (HP) Date:2017-07-22 09/06/2017 Secondary PEG R Susan Insurance:AARPPolicy LESTERDOB: Community Number: [id number] Hospital [id number] Repository Date:5518-00-05VS [address]OJKNWLP, [place] [address]QB: 09/06/2017 Tertiary NOT GIVENUNK Susan Insurance:SELF PAY [facility] Number: Effective Repository Date:2017-08-18 08/18/2017 PEG R Primary PEG R [facility] [id number] LATTER-[place] Insurance:MEDICARE LESTERDOB: Community [place] [facility] [id number] Service Unit [address]Ome: Number: Repository [id number] (HP) Date:2017-05-26 08/18/2017 Secondary PEG R Susan Insurance:AARPPolicy LESTERDOB: Community Number: [id number] Hospital [id number] Repository Date:9899-57-06RH [address]JFJKAIS, [place] [address]QD: 08/18/2017 Tertiary NOT GIVENUNK Susan Insurance:SELF PAY [facility] Number: Effective Repository Date:2017-05-26 08/10/2017 PEG R Primary PEG R [facility] [id number] LATTER-DAY Insurance:MEDICARE LESTERDOB: Community [place] [facility] [id number] Service Unit [address]Udl: Number: Repository [id number] (HP) Date:2017-07-22 08/10/2017 Secondary PEG R [facility] [place] Insurance:AARPPolicy LESTERDOB: Community Number: [id number] Hospital [id number] Repository Date:4169-28-52UZ [address]USCQXL, [place] [address]GG: 08/10/2017 Tertiary NOT GIVENUNK Susan Insurance:SELF PAY [facility] Number: Effective Repository Date:2017-07-22 06/30/2017 PEG R Primary PEG R [facility] [id number] LATTER-[place] Insurance:MEDICARE LESTERDOB: Community [place] [facility] [id number] Service Unit [address]Vds: Number: Repository [id number] (HP) Date:1993-09-18 06/30/2017 Secondary PEG R Susan Insurance:AARPPolicy LESTERDOB: Community Number: [id number] Hospital [id number] Repository Date:0730-49-71KL [facility] 709419KZCGCRI, [place] [address]ZW: 06/30/2017 Tertiary NOT GIVENUNK [facility] [place] Insurance:SELF PAY [facility] Number: Effective Repository Date:2017-06-20 06/22/2017 PEG R Primary PEG R Susan [id number] LATTER[place] Insurance:MEDICARE LESTERDOB: Community [facility] [place] [facility] [id number] Service Unit [address]Keb: Number: Repository [id number] (HP) Date:2017-05-22 06/22/2017 Secondary PEG R [facility] [place] Insurance:AARPPolicy LESTERDOB: Community Number: [id number] Hospital [id number] Repository Date:8704-43-69HG [facility] [address]39837[place], [place] [address]BI: 06/22/2017 Tertiary NOT GIVENUNK [facility] [place] Insurance:SELF PAY [facility] Number: Effective Repository Date:2017-05-22
== END 2018-06-05 09:00 | disposition home or self-care (01) ==
LOC: LAB 08:26
PROVIDERS: Family Provider Family Medicine; PCP Family Medicine; Referring Provider Internal Medicine Cardiovascular Disease; Visit Provider Internal Medicine Cardiovascular Disease
DX: I48.91 Unspecified atrial fibrillation (principal); Z79.01 Long term (current) use of anticoagulants
CPT/HCPCS: 36416; 85610

== ENCOUNTER 2018-06-26 08:13 | Outpatient (RCR) | payer MEDICARE, SELFPAY ==
[2018-05-30 07:26] VITALS: BMI 29.3
[2018-06-26 08:26] LABS: Prothrombin Time Fingerstick 28.6 SEC (11.9-14.4)
== END 2018-06-26 09:13 | disposition home or self-care (01) ==
LOC: LAB 08:13
PROVIDERS: Family Provider Family Medicine; PCP Family Medicine; Referring Provider Internal Medicine Cardiovascular Disease; Visit Provider Internal Medicine Cardiovascular Disease
DX: I48.91 Unspecified atrial fibrillation (principal); Z79.01 Long term (current) use of anticoagulants
CPT/HCPCS: 36416; 85610

== ENCOUNTER 2018-07-31 09:06 | Outpatient (RCR) | payer MEDICARE, SELFPAY ==
[2018-05-30 07:26] VITALS: BMI 29.3
[2018-07-31 09:21] LABS: Prothrombin Time Fingerstick 33.4 SEC (11.9-14.4)
== END 2018-08-17 14:02 | disposition home or self-care (01) ==
LOC: LAB 09:06
PROVIDERS: Family Provider Family Medicine; PCP Family Medicine; Referring Provider Internal Medicine Cardiovascular Disease; Visit Provider Internal Medicine Cardiovascular Disease
DX: I48.91 Unspecified atrial fibrillation (principal); Z79.01 Long term (current) use of anticoagulants
CPT/HCPCS: 36416; 85610

== ENCOUNTER 2018-08-28 08:21 | Outpatient (RCR) | payer MEDICARE, SELFPAY ==
[2018-05-30 07:26] VITALS: BMI 29.3
[2018-08-28 08:31] LABS: Prothrombin Time Fingerstick 34.1 SEC (11.9-14.4)
== END 2018-08-28 09:00 | disposition home or self-care (01) ==
LOC: LAB 08:21
PROVIDERS: Family Provider Family Medicine; PCP Family Medicine; Referring Provider Internal Medicine Cardiovascular Disease; Visit Provider Internal Medicine Cardiovascular Disease
DX: I48.91 Unspecified atrial fibrillation (principal); Z79.01 Long term (current) use of anticoagulants
CPT/HCPCS: 36416; 85610

== ENCOUNTER 2018-09-25 08:16 | Outpatient (RCR) | payer MEDICARE, SELFPAY ==
[2018-05-30 07:26] VITALS: BMI 29.3
[2018-09-25 08:36] LABS: Prothrombin Time Fingerstick 32.6 SEC (11.9-14.4)
== END 2018-10-17 16:00 | disposition home or self-care (01) ==
LOC: LAB 08:16
PROVIDERS: Family Provider Family Medicine; PCP Family Medicine; Referring Provider Internal Medicine Cardiovascular Disease; Visit Provider Internal Medicine Cardiovascular Disease
DX: I48.91 Unspecified atrial fibrillation (principal); Z79.01 Long term (current) use of anticoagulants
CPT/HCPCS: 36416; 85610

== ENCOUNTER 2018-10-23 08:31 | Outpatient (RCR) | payer MEDICARE, SELFPAY ==
[2018-05-30 07:26] VITALS: BMI 29.3
[2018-10-23 08:46] LABS: Prothrombin Time Fingerstick 29.6 SEC (11.9-14.4)
== END 2018-10-23 10:00 | disposition home or self-care (01) ==
LOC: LAB 08:31
PROVIDERS: Family Provider Family Medicine; PCP Family Medicine; Referring Provider Internal Medicine Cardiovascular Disease; Visit Provider Internal Medicine Cardiovascular Disease
DX: I48.91 Unspecified atrial fibrillation (principal); Z79.01 Long term (current) use of anticoagulants
CPT/HCPCS: 36416; 85610

== ENCOUNTER 2018-12-04 08:32 | Outpatient (RCR) | payer MEDICARE, SELFPAY ==
[2018-05-30 07:26] VITALS: BMI 29.3
[2018-11-27 08:40] LABS: Prothrombin Time Fingerstick 37.4 SEC (11.9-14.4)
[2018-11-28 15:41] LABS: Absolute Lymphocyte Count 2.29 X10^3/ul (0.83-4.51); Absolute Neutrophil Count 3.1 X10^3/uL (2.0-7.7); Basophil# 0.04 X10^3/uL; Basophil% 0.7 % (0-1); Eosinophil# 0.21 X10^3/uL; Eosinophils% 3.4 % (0-5); Hemoglobin 13.9 g/dl (13.0-16.5); Lymphocyte # 2.29 X10^3/ul (4.0); Lymphocyte % 37.6 % (19-41); Mean Corp Hgb Conc 32.3 g/gl (32-36); Mean Corpuscular Hgb 30.2 pg (27.0-32.0); Mean Corpuscular Volume 93.3 fL (80-94); Mean Platelet Vol. 9.9 fl (6.2-12.0); Monocyte# 0.44 X10^3/uL; Monocyte% 7.2 % (0-10); Neutrophil # 3.07 X10^3/uL (2.7-7.7); Neutrophil % 50.4 % (47-70); Platelet Count 202 K/mm3 (150-450); RBC Distribution Width CV 12.9 % (11.6-14.6); Red Blood Count 4.61 M/mm3 (4.6-6.2); White Blood Count 6.1 K/mm3 (4.4-11.0)
[2018-11-28 15:43] LABS: POSITIVE COUNT NO; POSITIVE DIFFERENTIAL NO; POSITIVE MORPHOLOGY NO
[2018-11-28 16:21] LABS: Anion Gap 8 (5-15); BUN 27 mg/dL (7-18); Calcium,Total 8.9 mg/dL (8.5-10.1); Chloride 109 mmol/L (98-107); Creatinine, Serum 2.07 mg/dL (0.70-1.30); EST Glomerular Filtration Rate 33 mL/min (>60); Est Glom Filt Rate - Afr Amer 40 mL/min (>60); Glucose 144 mg/dL (74-106); Potassium 4.7 mmol/L (3.5-5.1); Sodium Level 142 mmol/L (136-145); Thyroid Stim Hormone (TSH) 1.54 uIU/mL (0.358-3.74)
[2018-12-04 08:41] LABS: Prothrombin Time Fingerstick 35.7 SEC (11.9-14.4)
== END 2018-12-04 09:00 | disposition home or self-care (01) ==
LOC: LAB 08:32
PROVIDERS: Physician Assistant Medical; Family Provider Family Medicine; PCP Family Medicine; Referring Provider Internal Medicine Cardiovascular Disease; Visit Provider Internal Medicine Cardiovascular Disease
DX: I48.0 Paroxysmal atrial fibrillation (principal); Z79.01 Long term (current) use of anticoagulants; R53.83 Other fatigue; E78.00 Pure hypercholesterolemia, unspecified
CPT/HCPCS: 36415; 36416; 80048; 84443; 85025; 85610

== ENCOUNTER 2018-12-22 08:04 | Outpatient (RCR) | payer MEDICARE, SELFPAY ==
[2018-11-28 14:01] VITALS: BMI 29.9
[2018-12-22 08:16] LABS: Prothrombin Time Fingerstick 27.3 SEC (11.9-14.4)
== END 2018-12-22 09:00 | disposition home or self-care (01) ==
LOC: LAB 08:04
PROVIDERS: Family Provider Family Medicine; PCP Family Medicine; Referring Provider Internal Medicine Cardiovascular Disease; Visit Provider Internal Medicine Cardiovascular Disease
DX: I48.91 Unspecified atrial fibrillation (principal); Z79.01 Long term (current) use of anticoagulants
CPT/HCPCS: 36416; 85610

== ENCOUNTER 2019-01-25 08:45 | Outpatient (RCR) | payer MEDICARE, SELFPAY ==
[2018-11-28 14:01] VITALS: BMI 29.9
[2019-01-25 16:13] LABS: Prothrombin Time Fingerstick 29.2 SEC (11.9-14.4)
== END 2019-01-25 10:00 | disposition home or self-care (01) ==
LOC: LAB 08:45
PROVIDERS: Family Provider Family Medicine; PCP Family Medicine; Referring Provider Internal Medicine Cardiovascular Disease; Visit Provider Internal Medicine Cardiovascular Disease
DX: I48.91 Unspecified atrial fibrillation (principal); Z79.01 Long term (current) use of anticoagulants
CPT/HCPCS: 36416; 85610

== ENCOUNTER 2019-02-26 08:26 | Outpatient (RCR) | payer MEDICARE, SELFPAY ==
[2018-11-28 14:01] VITALS: BMI 29.9
[2019-02-26 13:30] LABS: Prothrombin Time Fingerstick 29.8 SEC (11.9-14.4)
== END 2019-02-26 11:00 | disposition home or self-care (01) ==
LOC: LAB 08:26
PROVIDERS: Family Provider Family Medicine; PCP Family Medicine; Referring Provider Internal Medicine Cardiovascular Disease; Visit Provider Internal Medicine Cardiovascular Disease
DX: I48.91 Unspecified atrial fibrillation (principal); Z79.01 Long term (current) use of anticoagulants
CPT/HCPCS: 36416; 85610

== ENCOUNTER 2019-03-27 08:49 | Outpatient (RCR) | payer MEDICARE, SELFPAY ==
[2018-11-28 14:01] VITALS: BMI 29.9
[2019-03-27 11:56] LABS: Prothrombin Time Fingerstick 30.3 SEC (11.9-14.4)
== END 2019-03-27 18:00 | disposition home or self-care (01) ==
LOC: LAB 08:49
PROVIDERS: Family Provider Family Medicine; PCP Family Medicine; Referring Provider Internal Medicine Cardiovascular Disease; Visit Provider Internal Medicine Cardiovascular Disease
DX: Z79.01 Long term (current) use of anticoagulants (principal)
CPT/HCPCS: 36416; 85610

== ENCOUNTER 2019-05-02 08:56 | Outpatient (RCR) | payer MEDICARE, SELFPAY ==
[2018-11-28 14:01] VITALS: BMI 29.9
[2019-05-02 09:11] LABS: Prothrombin Time Fingerstick 34.8 SEC (11.9-14.4)
== END 2019-05-02 18:00 | disposition home or self-care (01) ==
LOC: LAB 08:56
PROVIDERS: Family Provider Family Medicine; PCP Family Medicine; Referring Provider Internal Medicine Cardiovascular Disease; Visit Provider Internal Medicine Cardiovascular Disease
DX: Z79.01 Long term (current) use of anticoagulants (principal)
CPT/HCPCS: 36416; 85610

== ENCOUNTER 2019-05-21 09:18 | Outpatient (RCR) | payer MEDICARE, SELFPAY ==
[2018-11-28 14:01] VITALS: BMI 29.9
[2019-05-21 10:41] LABS: Color, Urine Yellow (Yellow); Glucose, Dipstick Normal (Normal); Ketone-Dipstick Negative (Negative); Leukocyte Esterase-Dipstick Negative /ul (Negative); Nitrite-Dipstick Negative (Negative); Occult Blood-Urine Negative /ul (Negative); Protein-Dipstick Negative (Negative); Specific Gravity, Urine 1.015 (1.002-1.030); Urine Bilirubin Dipstick Negative (Negative); Urine Clarity Clear (Clear); Urine Urobilinogen Normal (Normal)
[2019-05-21 10:50] LABS: Protein, Urine (Random) 16.4 mg/dL (<11.9); Protein:Creat Ratio 156 mg/g CRE (0-200)
[2019-05-21 10:56] LABS: International Normalized Ratio 2.4; Prothrombin Time (Protime)PT. 26.3 SECONDS (11.7-14.9)
[2019-05-21 11:04] LABS: Anion Gap 7 (5-15); BUN 34 mg/dL (7-18); BUN/Creat Ratio 14.8 RATIO (10-20); Calcium,Total 8.6 mg/dL (8.5-10.1); Chloride 110 mmol/L (98-107); Creatinine, Serum 2.29 mg/dL (0.70-1.30); EST Glomerular Filtration Rate 29 mL/min (>60); Est Glom Filt Rate - Afr Amer 35 mL/min (>60); Glucose 239 mg/dL (74-106); Phosphorus 2.8 mg/dL (2.5-4.9); Potassium 4.9 mmol/L (3.5-5.1); Sodium Level 141 mmol/L (136-145)
[2019-05-22 09:59] LABS: PTHIN 128.5 pg/mL (18.4-80.1)
[2019-05-23 14:08] LABS: PROEL- Albumin 3.3 g/dL (2.9-4.4); PROEL- Alpha-1 Globulin 0.2 g/dL (0.0-0.4); PROEL- Globulin, Total 3.2 g/dL (2.2-3.9); PROEL- TOTAL PROTEIN 6.5 g/dL (6.0-8.5); PROELU- Alpha-1-Globulin,Ur 3.3 % (.); PROELU- Alpha-2-Globulin,Ur 7.9 % (.); PROELU- Gamma Globulin, Ur 9.8 % (.); Total Protein, Ur 12.4 mg/dL (Not Estab.)
== END 2019-05-21 18:00 | disposition home or self-care (01) ==
LOC: LAB 09:18
PROVIDERS: Family Provider Family Medicine; PCP Family Medicine; Referring Provider Internal Medicine Cardiovascular Disease; Visit Provider Internal Medicine Cardiovascular Disease
DX: N18.3 Chronic kidney disease, stage 3 (moderate) (principal); Z79.01 Long term (current) use of anticoagulants
CPT/HCPCS: 36415; 80048; 81002; 82306; 82570; 83970; 84100; 84156; 84165; 84166; 85610

== ENCOUNTER → 2019-05-23 09:30 | Outpatient (CLI) | payer MEDICARE, SELFPAY ==
[2018-11-28 14:01] VITALS: BMI 29.9
[2019-05-23 11:27] LABS: 24 Hour Urine Protein 142.5 mg/24HR (<150 MG/24HR); 24HR. UA Prot. Total Volume 1900 mL; Urine Protein (24 Hour) 7.5 mg/dL (<11.9)
[2019-05-23 11:29] LABS: Creat.Clear Total Volume 1900 mL; Creatinine Clearance 41 ml/min (100-200); Creatinine Serum Creat 2.3 mg/dL (0.8-1.3); Creatinine Urine 71.6 mg/dL (NO RANGE EST.); EST Glomerular Filtration Rate 29 mL/min (>60); Est Glom Filt Rate - Afr Amer 35 mL/min (>60)
== END ==
PROVIDERS: Family Provider Family Medicine; PCP Family Medicine; Referring Provider Internal Medicine; Visit Provider Internal Medicine
DX: N18.3 Chronic kidney disease, stage 3 (moderate) (principal)
CPT/HCPCS: 36415; 81050; 82575; 84156

== ENCOUNTER → 2019-06-07 08:31 | Outpatient (CLI) | payer MEDICARE, SELFPAY ==
[2018-11-28 14:01] VITALS: BMI 29.9
--- NOTE | 2019-06-07 08:38 | US_ITS ---
STUDY: RENAL ULTRASOUND - COMPLETE REASON FOR EXAM: Male, 83 years old. Chronic kidney disease TECHNIQUE: Ultrasound evaluation of the kidneys was performed with real-time and static gannon-scale imaging. COMPARISON: None available. FINDINGS: RIGHT KIDNEY: There is increased cortical echogenicity. Normal location of the right kidney, which is normal in size. The right kidney measures 11 cm. There is a normal cortex of the right kidney. There is no right renal mass or cyst. There are no right renal calculi. There is no right hydronephrosis. LEFT KIDNEY: There is increased cortical echogenicity. Normal location of the left kidney, which is normal in size. The left kidney measures 11 cm. There is a normal cortex of the left kidney. There is no left renal mass or cyst. There are no left renal calculi. There is no left hydronephrosis. AORTA: No evidence of abdominal aortic aneurysm. I.V.C.: The IVC is patent. BLADDER: The urinary bladder is partially distended and appears unremarkable. US/Kidney and Bladder IMPRESSION: Bilateral renal parenchymal disease. No evidence of acute renal pathology. Electronically Signed: Tre Goldberg, at 20:34 EST Tel , Service support ,
== END ==
PROVIDERS: Family Provider Physician Assistant; PCP Physician Assistant; Referring Provider Internal Medicine; Visit Provider Internal Medicine
DX: N18.3 Chronic kidney disease, stage 3 (moderate) (principal)
CPT/HCPCS: 76770

== ENCOUNTER 2019-06-25 09:24 | Outpatient (RCR) | payer MEDICARE, SELFPAY ==
[2019-06-14 11:02] VITALS: BMI 30.4
[2019-06-25 11:11] LABS: Prothrombin Time Fingerstick 31.3 SEC (11.9-14.4)
== END 2019-06-25 18:00 | disposition home or self-care (01) ==
LOC: LAB 09:24
PROVIDERS: Family Provider Physician Assistant; PCP Physician Assistant; Referring Provider Internal Medicine Cardiovascular Disease; Visit Provider Internal Medicine Cardiovascular Disease
DX: Z79.01 Long term (current) use of anticoagulants (principal)
CPT/HCPCS: 36416; 85610

== ENCOUNTER 2019-08-16 08:59 | Outpatient (RCR) | payer MEDICARE, SELFPAY ==
[2019-06-14 11:02] VITALS: BMI 30.4
[2019-07-28 09:05] LABS: Prothrombin Time Fingerstick 37.7 SEC (11.9-14.4)
== END 2019-08-16 18:00 | disposition home or self-care (01) ==
LOC: LAB 08:59
PROVIDERS: Family Provider Physician Assistant; PCP Physician Assistant; Referring Provider Internal Medicine Cardiovascular Disease; Visit Provider Internal Medicine Cardiovascular Disease
DX: Z79.01 Long term (current) use of anticoagulants (principal)
CPT/HCPCS: 36416; 85610

== ENCOUNTER 2019-09-10 08:39 | Outpatient (RCR) | payer MEDICARE, SELFPAY ==
[2019-06-14 11:02] VITALS: BMI 30.4
[2019-09-10 09:26] LABS: International Normalized Ratio 2.7; Prothrombin Time (Protime)PT. 29.1 SECONDS (11.7-14.9)
[2019-09-10 09:30] LABS: Protein, Urine (Random) 14.7 mg/dL (<11.9); Protein:Creat Ratio 131 mg/g CRE (0-200)
[2019-09-10 09:35] LABS: Color, Urine Yellow (Yellow); Glucose, Dipstick Normal (Normal); Ketone-Dipstick Negative (Negative); Leukocyte Esterase-Dipstick Negative /ul (Negative); Nitrite-Dipstick Negative (Negative); Occult Blood-Urine Negative /ul (Negative); Protein-Dipstick 15 mg/dl (Negative); Specific Gravity, Urine 1.015 (1.002-1.030); Urine Bilirubin Dipstick Negative (Negative); Urine Clarity Clear (Clear); Urine Urobilinogen Normal (Normal)
[2019-09-10 09:42] LABS: Anion Gap 6 (5-15); BUN 27 mg/dL (7-18); BUN/Creat Ratio 12.8 RATIO (10-20); Calcium,Total 8.9 mg/dL (8.5-10.1); Chloride 108 mmol/L (98-107); Creatinine, Serum 2.11 mg/dL (0.70-1.30); EST Glomerular Filtration Rate 32 mL/min (>60); Est Glom Filt Rate - Afr Amer 39 mL/min (>60); Glucose 147 mg/dL (74-106); Phosphorus 2.7 mg/dL (2.5-4.9); Potassium 4.4 mmol/L (3.5-5.1); Sodium Level 140 mmol/L (136-145)
[2019-09-10 10:33] LABS: PTHIN 151.5 pg/mL (18.4-80.1)
[2019-09-10 10:36] LABS: Vitamin D,25 Hydroxy 24.6 ng/mL
== END 2019-09-10 18:00 | disposition home or self-care (01) ==
LOC: LAB 08:39
PROVIDERS: Family Provider Physician Assistant; PCP Physician Assistant; Referring Provider Internal Medicine Cardiovascular Disease; Visit Provider Internal Medicine Cardiovascular Disease
DX: N18.4 Chronic kidney disease, stage 4 (severe) (principal); N25.81 Secondary hyperparathyroidism of renal origin; Z79.01 Long term (current) use of anticoagulants
CPT/HCPCS: 36415; 80048; 81002; 82306; 82570; 83970; 84100; 84156; 85610

== ENCOUNTER 2019-10-18 09:08 | Outpatient (RCR) | payer MEDICARE, SELFPAY ==
[2019-06-14 11:02] VITALS: BMI 30.4
[2019-10-18 16:51] LABS: Prothrombin Time Fingerstick 32.9 SEC (11.9-14.4)
== END 2019-10-18 18:00 | disposition home or self-care (01) ==
LOC: LAB 09:08
PROVIDERS: Family Provider Physician Assistant; PCP Physician Assistant; Referring Provider Internal Medicine Cardiovascular Disease; Visit Provider Internal Medicine Cardiovascular Disease
DX: Z79.01 Long term (current) use of anticoagulants (principal)
CPT/HCPCS: 36416; 85610

== ENCOUNTER 2019-12-05 13:48 | Outpatient (RCR) | payer MEDICARE, SELFPAY ==
[2019-06-14 11:02] VITALS: BMI 30.4
[2019-11-19 08:56] LABS: Prothrombin Time Fingerstick 36.3 SEC (11.9-14.4)
[2019-12-05 14:54] LABS: International Normalized Ratio 3.1; Prothrombin Time (Protime)PT. 31.9 SECONDS (11.7-14.9)
[2019-12-06 06:35] LABS: Prothrombin Time Fingerstick 40.6 SEC (11.9-14.4)
== END 2019-12-05 18:00 | disposition home or self-care (01) ==
LOC: LAB 13:48
PROVIDERS: Family Provider Physician Assistant; PCP Physician Assistant; Referring Provider Internal Medicine Cardiovascular Disease; Visit Provider Internal Medicine Cardiovascular Disease
DX: Z79.01 Long term (current) use of anticoagulants (principal)
CPT/HCPCS: 36415; 36416; 85610

== ENCOUNTER 2019-12-19 08:18 | Outpatient (RCR) | payer MEDICARE, SELFPAY ==
[2019-06-14 11:02] VITALS: BMI 30.4
[2019-12-19 08:36] LABS: Prothrombin Time Fingerstick 39.6 SEC (11.9-14.4)
== END 2019-12-19 18:00 | disposition home or self-care (01) ==
LOC: LAB 08:18
PROVIDERS: Family Provider Physician Assistant; PCP Physician Assistant; Referring Provider Internal Medicine Cardiovascular Disease; Visit Provider Internal Medicine Cardiovascular Disease
DX: Z79.01 Long term (current) use of anticoagulants (principal)
CPT/HCPCS: 36416; 85610

== ENCOUNTER → 2020-01-02 09:59 | Outpatient (CLI) | payer MEDICARE, SELFPAY ==
[2019-06-14 11:02] VITALS: BMI 30.4
[2020-01-02 12:10] LABS: International Normalized Ratio 2.9; Prothrombin Time (Protime)PT. 30.2 SECONDS (11.7-14.9)
[2020-01-02 12:11] LABS: Anion Gap 6 (5-15); BUN 36 mg/dL (7-18); BUN/Creat Ratio 16.6 RATIO (10-20); Calcium,Total 8.7 mg/dL (8.5-10.1); Chloride 107 mmol/L (98-107); Creatinine, Serum 2.17 mg/dL (0.70-1.30); EST Glomerular Filtration Rate 31 mL/min (>60); Est Glom Filt Rate - Afr Amer 37 mL/min (>60); Glucose 118 mg/dL (74-106); Potassium 4.8 mmol/L (3.5-5.1); Sodium Level 139 mmol/L (136-145)
== END ==
PROVIDERS: PCP Physician Assistant; Visit Provider Internal Medicine Nephrology
DX: E87.5 Hyperkalemia (principal); Z79.01 Long term (current) use of anticoagulants
CPT/HCPCS: 36415; 80048; 85610

== ENCOUNTER 2020-01-24 08:15 | Outpatient (RCR) | payer MEDICARE, SELFPAY ==
[2020-01-14 09:14] VITALS: BMI 28.2
[2020-01-21 09:42] VITALS: BMI 28.2
[2020-01-24 08:45] LABS: Hematocrit 38.9 % (40-54); Hemoglobin 12.3 g/dL (13.0-16.5); Mean Corp Hgb Conc 31.6 g/dL (32-36); Mean Corpuscular Hgb 30.1 pg (27.0-32.0); Mean Corpuscular Volume 95.3 fL (80-94); Mean Platelet Vol. 9.6 fl (6.2-12.0); Platelet Count 227 K/mm3 (150-450); RBC Distribution Width CV 12.7 % (11.6-14.6); RBC Distribution Width SD 43.9 fl (35.1-43.9); Red Blood Count 4.08 M/mm3 (4.6-6.2); White Blood Count 6.5 K/mm3 (4.4-11.0)
[2020-01-24 08:56] LABS: International Normalized Ratio 2.5; Prothrombin Time (Protime)PT. 26.5 SECONDS (11.7-14.9)
[2020-01-24 09:16] LABS: Albumin, Serum 3.3 g/dL (3.2-5.0); BUN 30 mg/dL (7-18); BUN/Creat Ratio 13.7 RATIO (10-20); Calcium,Total 9.2 mg/dL (8.5-10.1); Chloride 109 mmol/L (98-107); Creatinine, Serum 2.19 mg/dL (0.70-1.30); EST Glomerular Filtration Rate 31 mL/min (>60); Est Glom Filt Rate - Afr Amer 37 mL/min (>60); Ferritin 187 ng/mL (26-388); Glucose 144 mg/dL (74-106); Iron 68 ug/dL (65-175); Iron Binding Capacity,Total 258 ug/dL (250-450); PERCENT IRON SATURATION 26.4 % (15.0-55.0); Phosphorus 2.6 mg/dL (2.5-4.9); Potassium 5.1 mmol/L (3.5-5.1); Sodium Level 140 mmol/L (136-145)
== END 2020-02-18 18:00 | disposition home or self-care (01) ==
LOC: LAB 08:15
PROVIDERS: Internal Medicine Nephrology; Family Provider Physician Assistant; PCP Physician Assistant; Referring Provider Internal Medicine Cardiovascular Disease; Visit Provider Internal Medicine Cardiovascular Disease
DX: N18.4 Chronic kidney disease, stage 4 (severe) (principal); Z79.01 Long term (current) use of anticoagulants; D64.9 Anemia, unspecified
CPT/HCPCS: 36415; 80069; 82728; 83540; 83550; 85027; 85610

== ENCOUNTER 2020-02-04 20:07 | Emergency (ER) | payer MEDICARE, SELFPAY ==
[2020-01-21 09:42] VITALS: BMI 28.2
[2020-02-04 20:08] VITALS: BP 112/64; PULSE 60; RESP 16; TEMP 36.3; O2SAT 98; BMI 27.5
[2020-02-04 20:38] VITALS: BP 112/64; PULSE 60; RESP 16; TEMP 36.3; O2SAT 98
--- NOTE | 2020-02-04 21:00 | ED.VIS.GEN ---
History of Present Illness Chief Complaint: Wound Informant: Patient Narrative: 84-year-old male presenting with wound on the left lateral ankle which has been present for 5 weeks. He states he has been following up outpatient via tele-visit and was put on steroids for possible gout. Patient states that this is been increasingly painful. He did not respond to the steroids that they given. Today he notes that the wound on his left ankle open and was draining. He states he has not been on any antibiotics. Not have any systemic signs or symptoms. 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 Past Medical History - Allergies and Home Meds Allergies/Adverse Reactions: Allergies lisinopril Allergy (Severe, Verified 01/24/20 11:50) rash amlodipine Allergy (Intermediate, Verified 01/24/20 11:50) Rash atorvastatin [From Lipitor] Allergy (Verified 01/24/20 11:50) Unknown doxazosin Allergy (Verified 01/24/20 11:50) Unknown hydrochlorothiazide Allergy (Verified 01/24/20 11:50) Unknown niacin [From Niaspan Extended-Release] Allergy (Verified 01/24/20 11:50) Unknown propranolol [From Inderal LA] Allergy (Verified 01/24/20 11:50) Unknown quinine Allergy (Verified 01/24/20 11:50) Unknown tamsulosin [From Flomax] Allergy (Verified 01/24/20 11:50) Unknown verapamil [From Calan] Allergy (Verified 01/24/20 11:50) Unknown Primary Care Physician: Ian Hathaway PA [Primary Care Provider] - Prior records reviewed: Yes Past Medical History: - - Reviewed under problem list Surgical History: noncontributory, - - R eyelid CA removal, 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 Elder Schofield MD) Father CAD (coronary artery disease) Brother CAD (coronary artery disease) Family History: Reports: Cancer Paternal Family History: Family History (Last Reviewed 01/21/20 @ 11:[address] Elder Schofield MD) Father CAD (coronary artery disease) Brother CAD (coronary artery disease) Family History: Reports: Heart Disease, - - valve disorders Offspring Family History: Family History (Last Reviewed 01/21/20 @ 11:[address] Elder Schofield MD) Father CAD (coronary artery disease) Brother CAD (coronary artery disease) Family History: Reports: - - son- maker Review of Systems General: Denies: Chills, Fever, Sweats Eyes: Denies: Visual changes - bilaterally, Diplopia ENT: Denies: Rhinorrhea, Sore throat Cardiovascular: Denies: Chest pain, Palpitations Respiratory: Denies: Dyspnea, Cough, Dyspnea on exertion Gastrointestinal: Denies: Abdominal pain, Nausea, Vomiting, Diarrhea, Melena, Hematochezia Genitourinary: Denies: Dysuria, Hematuria, Frequency Musculoskeletal: Reports: Extremity Pain - Pain over the left ankle illness. Skin: Reports: Abscess - Left ankle Neurological: Denies: Headache, Weakness Physical Exam Vital Signs/Narrative: Vital Signs Temp Pulse Resp BP Pulse Ox 02/04/20 20:38 97.3 F L 60 16 112/64 98 02/04/20 20:08 97.3 F L 60 16 112/64 98 Inital Vital Signs reviewed: Yes General: Well nourished, No Acute Distress Head: Normocephalic ENT: Moist mucous membranes Cardiovascular: Regular rate Respiratory: No distress Extremities: - - There is to palpation over the left lateral malleolus. There appears to be an area of abscess overlying this. It is already open and draining. There is no surrounding erythema. Do not suspect infected joint. Pain with small arc range of motion. Left foot is neurovascularly intact prescribe refill to all 5 toes. Skin: - - As described under extremities Neurological: Alert, Oriented x3 Psychological: Normal affect Diagnostic/Tx/Re-eval - Medical Decision Making Patient is seen and evaluated for left ankle wound. He states his been here for a long time but has now started to swell and then today opened. It is draining. Patient has no systemic signs or symptoms. 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 On exam it does appear to be a small area of the abscess. This was expressed and has a 1 cm area of opening which is sufficient. I do not believe he needs more of an I&D. Patient is counseled on hot water soaks for his left ankle. He will be started on antibiotics for home. He is to follow-up with his primary care to ensure resolution. Impression: 1. Abscess left ankle ED Disposition - Plan for ED Patient: Disposition: Home or Assisted Living Instructions: Pressure Ulcer Prescriptions: Clindamycin [Cleocin] 450 mg PO TID #90 cap Transmission Status: Received by [facility] Referrals: Ian Hathaway PA [Primary Care Provider] -
[2020-02-04] MEDS: Clindamycin HCl 150 MG Capsule 450 MG PO (21:18)
[2020-02-04 21:33] VITALS: RESP 18
== END 2020-02-04 21:34 | disposition home or self-care (01) ==
PROVIDERS: Emergency Provider Student in an Organized Health Care Education/Training Program; PCP Physician Assistant
DX: L02.416 Cutaneous abscess of left lower limb (principal); Z79.01 Long term (current) use of anticoagulants; Z87.891 Personal history of nicotine dependence; Z95.0 Presence of cardiac pacemaker
CPT/HCPCS: 99283

== ENCOUNTER 2020-02-06 06:48 | Day surgery (SDC) | payer MEDICARE, SELFPAY ==
[2020-01-21 09:42] VITALS: BMI 28.2
--- NOTE | 2020-01-21 11:35 | HP_ITS ---
Intake Vital Signs 01/21/20 Height 6 ft 3 in 01/21/20 Weight: 222 lb 01/21/20 BMI 27.7 01/21/20 BP 145/76 H 01/21/20 Blood Pressure Location Rt brachial 01/21/20 Position Sitting 01/21/20 Respiration 18 Intake Visit Reasons: GI BLEED, UPPER ABDOMINAL PAIN Chief Complaint: Follow-up visit Cooking Instructor Required: No Is patient in pain?: No Allergies lisinopril Allergy (Severe, Verified 01/21/20 09:37) rash amlodipine Allergy (Intermediate, Verified 01/21/20 09:37) Rash atorvastatin [From Lipitor] Allergy (Verified 01/21/20 09:37) Unknown doxazosin Allergy (Verified 01/21/20 09:37) Unknown hydrochlorothiazide Allergy (Verified 01/21/20 09:37) Unknown niacin [From Niaspan Extended-Release] Allergy (Verified 01/21/20 09:37) Unknown propranolol [From Inderal LA] Allergy (Verified 01/21/20 09:37) Unknown quinine Allergy (Verified 01/21/20 09:37) Unknown tamsulosin [From Flomax] Allergy (Verified 01/21/20 09:37) Unknown verapamil [From Calan] Allergy (Verified 01/21/20 09:37) Unknown Medications Cyanocobalamin (Vitamin B-12) [Vitamin B-12] 1,000 mcg SL DAILY 01/24/17 [History Confirmed 01/21/20] Hydrocodone/Acetaminophen [Inez 5-325 Tablet] 1 tab PO BID PRN 01/24/17 [History Confirmed 01/21/20] Hydrocortisone [Procto-Med Hc] 30 gm RC BID PRN PRN 01/24/17 [History Confirmed 01/21/20] Omeprazole [Prilosec] 20 mg PO DAILY 01/24/17 [History Confirmed 01/21/20] Polyethylene Glycol 3350 [Miralax] 17 gm PO DAILY PRN PRN 01/24/17 [History Confirmed 01/21/20] Simvastatin [Zocor] 20 mg PO QHS 01/24/17 [History Confirmed 01/21/20] traZODone [Desyrel] 50 mg PO QHS PRN PRN 01/24/17 [History Confirmed 01/21/20] losartan 50 mg tablet 50 mg PO DAILY 30 Days #30 08/18/17 [History Confirmed 01/21/20] warfarin 5 mg tablet 2.5 mg PO 6XW tab 10/19/17 [History Confirmed 01/21/20] ammonium lactate 12 % lotion 1 applic TOPICAL DAILY PRN 11/28/18 [History Confirmed 01/21/20] clotrimazole-betamethasone 1 %-0.05 % topical cream 1 applic TOPICAL BID 11/28/18 [History Confirmed 01/21/20] diphenhydramine HCl 25 mg capsule 25 mg PO Q6H PRN cap 11/28/18 [History Confirmed 01/21/20] carvedilol 25 mg tablet 25 mg PO BID tab 06/14/19 [History Confirmed 01/21/20] clonidine HCl 0.1 mg tablet 0.1 mg PO BID tab 06/14/19 [History Confirmed 01/21/20] torsemide 5 mg tablet 5 mg PO DAILY tab 06/14/19 [History Confirmed 01/21/20] warfarin 1 mg tablet 1 mg PO 4XW #20 tab 12/19/19 [Rx Confirmed 01/21/20] spironolactone 25 mg tablet 12.5 mg PO DAILY tab 01/14/20 [History Confirmed 01/21/20] PFSH Medical History Atrioventricular block, complete (Chronic) Chronic systolic (congestive) heart failure (Chronic) Essential (primary) hypertension (Chronic) Paroxysmal atrial fibrillation (Chronic) Aortic valve calcification (Chronic) Hyperlipidemia (Chronic) Tachy-mary syndrome (Chronic) Arthritis (Chronic) Atrioventricular block, Mobitz type 2 (Chronic) Chronic renal disease, stage 3, moderately decreased glomerular filtration rate between 30-59 mL/min/1.73 square meter (Chronic) Old myocardial infarction (Chronic) Type 2 diabetes mellitus (Chronic) Surgical History 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 Elder Schofield MD) Smoking Status: Former smoker how long ago did patient quit smokin alcohol intake: current alcohol intake frequency: a few times a week Alcohol type: hard liquor substance use type: does not use caffeine: Yes Type: coffee Number of servings: 3 what type of physical activity do you participate in: none seatbelt use: always do you feel safe at home: Yes HPI HPI Surgical H&P: Yes HPI: PEG BAEZ, is a 84 M who presents to the office today for Evaluation for endoscopy. Patient has had a positive fecal occult blood test. In addition he is also had an episode back in 11/28/2019 of having a hemoglobin that was 12.4 which is anemic. Patient is also been losing weight approximately 15 pounds over the last year and has not been eating well and has early satiety. Patient's last colonoscopy was on 06/01/2013 and had one tubular adenoma identified. ROS General General: Yes weight change; no appetite, fatigue, colon cancer, breast cancer or weakness HEENT HEENT: Yes eye injury and eye surgery; no difficulty swallowing, swollen glands or hoarseness Endo Endocrine: Yes diabetes mellitus; no thyroid disease, thyroid cancer, Hair loss, heat intolerance or cold intolerance Skin Skin: Yes rash; no changing moles Breast Breast: No left breast lump, right breast lump, nipple discharge, breast pain, abnormal mammogram, abnormal US or breast enlargement Musc Musculoskeletal: Yes back problems and arthritis; no rheumatoid arthritis, gout or joint pain Cardio Cardiovascular: Yes pacemaker, heart disease, atrial fibrillation and high blood pressure; no murmur, heart attack, heart stent, palpitations, shortness of breat with exertion or chest pain Psych Psychiatric: No depression, anxiety or hearing voices Resp Respiratory: No shortness of breath, No sleep apnea, No cough, No COPD, No asthma, No emphysema, No wheezing Gastro Gastrointestinal: Yes abdominal pain, No nausea or vomiting, No diarrhea, Yes constipation, Yes blood in stool, Yes acid reflux, Yes hemorrhoids, No ulcers, No gallbladder problem, No black,tarry stools Aleksandar Hematologic: Yes blood thinners, No blood disorders, No bleeding, No anemia, No blood clots Neuro Neurologic: No system reviewed and no additional complaints, except as docu, No as per HPI, No abnormal walking, No abnormal hearing, No abnormal movements, No abnormal speech, No behavioral changes, No burning sensations, No confusion, No seizure-like activity, No unsteadiness, No dizziness, No localized weakness, No frequent falls, No headache(s), No lack of coordination, No loss of vision, No memory loss, Yes numbness, No other visual disturbances, No radiating pain, No restless legs, No sensory deficit, No fainting, Yes tingling, No tremor(s), No weakness, No other Exam Const General: no acute distress, well developed, well hydrated Orientation: oriented to person, oriented to place, oriented to time [facility] Head: normocephalic, atraumatic Ears: external ears normal Mouth: moist mucous membranes Eyes Sclera: sclerae normal Pupils: normal by confrontation Neck Neck: no lymphadenopathy noted Neck mass: No Thyroid: thyroid normal, symmetrical Chest Chest palpation & inspection: normal inspection of the chest Breast Palpation: No nipple discharge Resp Effort & Inspection: normal respiratory effort Auscultation: clear to auscultation bilaterally Percussion: percussion normal Cardio Rate: regular rate Rhythm: regular rhythm Heart Sounds: no murmurs GI Palpation: soft, no hepatosplenomegaly, no masses, nontender Rectal Exam: other Other: Rectal exam deferred. Extrem General: normal to inspection, no clubbing, cyanosis or edema Assessment & Plan Problems 1. Heme positive stool R19.5 2. Weight loss, abnormal R63.4 3. Loss of appetite R63.0 4. Early satiety R68.81 Plan I have discussed the above with the patient. I have offered the patient colonoscopy As well as an EGD for evaluation. I have explained the risks/benefits of the procedure and described the procedure. I have discussed the risks with the patient, including but not limited to: infection, bleeding, perforation of the GI tract requiring emergency surgery, inability to complete the procedure, injury to any internal organs, complications of anesthesia, etc. - the patient understands and agrees to proceed. I have answered all the patient's questions to the patient's satisfaction and the patient has no further questions. The patient has been given instructions for the colon cleansing preparation. Coding Level of Care Code Off vis,new,level 3 Diagnoses Heme positive stool R19.5 Weight loss, abnormal R63.4 Loss of appetite R63.0 Early satiety R68.81 COVID (Procedure Consent) Procedure Criteria Procedure Criteria: Yes Elective The surgeon/proceduralist and patient have discussed in detail the risk of exposure to and/or potential harm posed by the COVID-19 virus with having a surgery/procedure at this time versus the risk of? delaying the surgery/procedure. It is not possible to know either the risk of delaying the surgery or procedure or chance of getting an infection with perfect accuracy, but a joint decision was made between the patient and the surgeon/proceduralist ?to proceed at this time with the scheduled surgery/procedure as indicated on the consent form. 01/21/20 1135 <Electronically signed by Elder parks MD> Date _ Elder Schofield MD I have re-examined the patient. There are no clinical changes since date of exam.
[2020-02-06 07:05] VITALS: BP 141/73; PULSE 61; RESP 18; TEMP 36.3; O2SAT 98; BMI 26.8
[2020-02-06] MEDS: Lactated Ringers 1,000 ML 100 ML IV (07:11)
[2020-02-06 07:27] LABS: International Normalized Ratio 1.9; Prothrombin Time (Protime)PT. 21.2 SECONDS (11.7-14.9)
--- NOTE | 2020-02-06 08:00 | EGD_PTH ---
PATIENT: PEG BAEZ LOC: EN U#:[id number] AGE/SX: 84/M ROOM: RE02/06/[address]: Dr. Elder Schofield MD : 1935 BED: DIS: 02/06/2020 SPEC #: [id number] RECD: 02/06/20 10:39 STATUS: RACHELLE TAINA #: [id number] ANISA: 02/06/20 08:[address]: Elder Schofield DEPT: SURGICAL PATHOLOGY RECD BY: Brian Smyth ENTERED: 02/06/20 11:52 SP TYPE: EGD BIOPSY OTHR DR: KERRIE Mas Tissues: A - Gastric mucous membrane B - Sigmoid colon biopsy Procedures: Surgery Specimen Level IV HEADER OPERATION: Colonoscopy, EGD ([facility]) PRE-OP DIAGNOSIS: GI bleed, upper abdomen pain TISSUE SUBMITTED: A - Antrum biopsy for histo and H. pylori, B - Sigmoid polyps (2) MICROSCOPIC DIAGNOSIS A. Antrum, biopsy: Mild gastritis. See microscopic description and comment. B. Sigmoid polyps x 2, biopsy: Fragments of tubular adenoma. Fragments of fecal material. JULIANNE:nino 02/07/20 COMMENT A. The results of immunohistochemistry for Helicobacter pylori will be reported separately ([id number]). MICROSCOPIC DESCRIPTION Slides are reviewed. A. The specimen shows fragments of gastric mucosa with chronic inflammatory cell infiltrates in the lamina propria consisting of lymphocytes and plasma cells, consistent with mild chronic gastritis. GROSS DESCRIPTION A - Received in fixative is one container labeled with the patient's name and designated antrum biopsy. The specimen consists of one irregular fragment of light fung soft tissue that measures 0.5 x 0.2 x 0.1 cm. The specimen is totally submitted in one cassette. B - Received in fixative is one container labeled with the patient's name and designated sigmoid polyps. The specimen consists of multiple irregular fragments of fung-pink soft tissue mixed with fecal material that in aggregate measure 2.5 x 1.2 x 0.3 cm. The specimen is totally submitted in one cassette. / JULIANNE:nino 02/06/20 TC:1 CPT: 65035 x2
--- NOTE | 2020-02-06 08:00 | IMM_PTH ---
PATIENT: PEG BAEZ LOC: EN U#:[id number] AGE/SX: 84/M ROOM: RE02/06/[address]: Dr. Elder Schofield MD : 1935 BED: DIS: 02/06/2020 SPEC #: [id number] RECD: 02/06/20 12:26 STATUS: RACHELLE REAris #: [id number] ANISA: 02/06/20 08:[address]: Elder Schofield DEPT: IMMUNOHISTOCHEMISTRY RECD BY: Yessi Iyer ENTERED: 02/06/20 12:26 SP TYPE: IMMUNO OTHR DR: KERRIE Mas Tissues: A - Stomach, NOS Procedures: H Pylori (initial) PHYSICIAN & INSTITUTION [place] [address] SPECIMEN INFORMATION: Tissue Source: A - Antrum biopsy Clinical Info: GI bleed, upper abdomen pain Specimen Number: [id number] CPT code: 71627 METHODOLOGY: Deparaffinized sections of prefer/formalin-fixed tissue or PAP/DQ stained slides are incubated with monoclonal/polyclonal antibodies/oligonucleotide probes. Localization is made via biotin free immunoperoxidase method. Appropriate controls are performed and reacted as expected. Results on target cell population are indicated in the following table: RESULTS: ANTIBODY / CLONE RESULT Block A H Pylori (polyclonal) negative These tests were developed and their performance characteristics determined by [facility]. They may not have been cleared or approved by the U.S. Food and Drug Administration. The FDA has determined that such clearance or approval is not necessary. INTERPRETATION: A. Antrum biopsy: Negative for Helicobacter pylori organisms. SJ:nino 02/07/20
[2020-02-06 08:30] VITALS: BP 107/78; BP 141/73; PULSE 60; RESP 16; TEMP 36.4; O2SAT 96
[2020-02-06 08:35] VITALS: BP 116/67; BP 141/73; PULSE 60; RESP 16; O2SAT 94
--- NOTE | 2020-02-06 08:38 | OP.EGD_ITS ---
Patient Name: Demar Schrader Procedure Date: 02/06/2020 7:48 AM Date of : 1935 Age: 84 Procedure: Upper GI endoscopy Indications: Heme positive stool, Anorexia, Early satiety, Weight loss Providers: Elder Schofield MD Referring MD: Ian Hathaway Medicines: See the Anesthesia note for documentation of the administered medications Patient Profile: This is an 84 year old male. Refer to note in patient chart for documentation of history and physical. Complications: No immediate complications. Procedure: Pre-Anesthesia Assessment: - Prior to the procedure, a History and Physical was performed, and patient medications and allergies were reviewed. The patient's tolerance of previous anesthesia was also reviewed. The risks and benefits of the procedure and the sedation options and risks were discussed with the patient. All questions were answered, and informed consent was obtained. Prior Anticoagulants: The patient has taken Coumadin (warfarin), last dose was 7 days prior to procedure. ASA Grade Assessment: III - A patient with severe systemic disease. After reviewing the risks and benefits, the patient was deemed in satisfactory condition to undergo the procedure. After obtaining informed consent, the endoscope was passed under direct vision. Throughout the procedure, the patient's blood pressure, pulse, and oxygen saturations were monitored continuously. The Endoscope was introduced through the mouth, and advanced to the second part of duodenum. The upper GI endoscopy was accomplished without difficulty. The patient tolerated the procedure well. Scope In: 8:01:27 AM Scope Out: 8:05:34 AM Total Procedure Duration Time 0 hours 4 minutes 7 seconds Findings: A large hiatal hernia was present. No biopsies or other specimens were collected for this exam. This was an extremely large hiatal hernia. The diaphragmatic hiatus was located at 41 cm the GE junction was at 35 cm to 34 cm. Localized mildly erythematous mucosa without bleeding was found in the prepyloric region of the stomach. Biopsies were taken with a cold forceps for Helicobacter pylori testing. The examined duodenum was normal. No biopsies or other specimens were collected for this exam. Impression: - Large hiatal hernia. No specimens collected. - Erythematous mucosa in the prepyloric region of the stomach. Biopsied. - Normal examined duodenum. No specimens collected. Recommendation: - Discharge patient to home. - Resume previous diet. - Continue present medications. - Await pathology results. - Repeat upper endoscopy (date not yet determined) for surveillance. - Return to my office in 1 week. Procedure Code(s): --- Professional --- 93996, Esophagogastroduodenoscopy, flexible, transoral; with biopsy, single or multiple Diagnosis Code(s): --- Professional --- K44.9, Diaphragmatic hernia without obstruction or gangrene K31.89, Other diseases of stomach and duodenum R19.5, Other fecal abnormalities CPT copyright 2017 [employer]. All rights reserved. The codes documented in this report are preliminary and upon insurance territory manager review may be revised to meet current compliance requirements. MD Elder Nolasco MD 02/06/2020 8:38:22 AM This report has been signed electronically. Number of Addenda: 0 Note Initiated On: 02/06/2020 7:48 AM
--- NOTE | 2020-02-06 08:38 | OP.CCLET_ITS ---
02/06/2020 Ian Hathaway Re : Upper GI endoscopy procedure for Demar Schrader Dear Rivas This procedure was performed on Thursday, February 06, 2020. My impressions and recommendations are as follows: Impressions : - Large hiatal hernia. No specimens collected. - Erythematous mucosa in the prepyloric region of the stomach. Biopsied. - Normal examined duodenum. No specimens collected. Recommendations : - Discharge patient to home. - Resume previous diet. - Continue present medications. - Await pathology results. - Repeat upper endoscopy (date not yet determined) for surveillance. - Return to my office in 1 week. My findings are described in the full procedure note, which is enclosed. If I can be of further assistance, please feel free to contact me at Doctor phone number(s): , Fax: [phone], Work: . Sincerely, MD Elder Nolasco MD 02/06/2020 8:38:22 AM This report has been signed electronically.
[2020-02-06 08:40] VITALS: BP 104/68; BP 141/73; PULSE 61; RESP 16; O2SAT 96
--- NOTE | 2020-02-06 08:42 | OP.CCLET_ITS ---
02/06/2020 Ian Hathaway Re : Colonoscopy procedure for Demar Schrader Dear Rivas This procedure was performed on Thursday, February 06, 2020. My impressions and recommendations are as follows: Impressions : - Preparation of the colon was poor. - Two 2 to 8 mm polyps in the sigmoid colon, removed with a hot snare. Resected and retrieved. - The examination was otherwise normal. Recommendations : - Discharge patient to home. - Resume previous diet. - Continue present medications. - Await pathology results. - Repeat colonoscopy in 6 months because the bowel preparation was poor. - Return to my office in 1 week. My findings are described in the full procedure note, which is enclosed. If I can be of further assistance, please feel free to contact me at Doctor phone number(s): , Fax: [phone], Work: . Sincerely, MD Elder Nolasco MD 02/06/2020 8:41:51 AM This report has been signed electronically.
--- NOTE | 2020-02-06 08:42 | OP.COLON_ITS ---
Patient Name: Demar Schrader Procedure Date: 02/06/2020 8:05 AM Date of : 1935 Age: 84 Procedure: Colonoscopy Indications: Heme positive stool Providers: Elder Schofield MD Referring MD: Ian Hathaway Medicines: See the Anesthesia note for documentation of the administered medications Patient Profile: This is an 84 year old male. Refer to note in patient chart for documentation of history and physical. Last Colonoscopy: 2012. Complications: No immediate complications. Procedure: Pre-Anesthesia Assessment: - Prior to the procedure, a History and Physical was performed, and patient medications and allergies were reviewed. The patient's tolerance of previous anesthesia was also reviewed. The risks and benefits of the procedure and the sedation options and risks were discussed with the patient. All questions were answered, and informed consent was obtained. Prior Anticoagulants: The patient has taken Coumadin (warfarin), last dose was 7 days prior to procedure. ASA Grade Assessment: III - A patient with severe systemic disease. After reviewing the risks and benefits, the patient was deemed in satisfactory condition to undergo the procedure. After I obtained informed consent, the scope was passed under direct vision. Throughout the procedure, the patient's blood pressure, pulse, and oxygen saturations were monitored continuously. The colonoscope was introduced through the anus and advanced to the cecum, identified by appendiceal orifice and ileocecal valve. The colonoscopy was performed with difficulty due to poor bowel prep with stool present. The patient tolerated the procedure well. The quality of the bowel preparation was poor. Scope In: 8:07:34 AM Scope Withdrawal Time 0 hours 11 minutes 54 seconds Scope Out: 8:23:55 AM Total Procedure Duration Time 0 hours 16 minutes 21 seconds Findings: Two sessile polyps were found in the sigmoid colon. The polyps were 2 to 8 mm in size. These polyps were removed with a hot snare. Resection and retrieval were complete. The exam was otherwise without abnormality. Impression: - Preparation of the colon was poor. - Two 2 to 8 mm polyps in the sigmoid colon, removed with a hot snare. Resected and retrieved. - The examination was otherwise normal. Recommendation: - Discharge patient to home. - Resume previous diet. - Continue present medications. - Await pathology results. - Repeat colonoscopy in 6 months because the bowel preparation was poor. - Return to my office in 1 week. Procedure Code(s): --- Professional --- 72961, Colonoscopy, flexible; with removal of tumor(s), polyp(s), or other lesion(s) by snare technique Diagnosis Code(s): --- Professional --- D12.5, Benign neoplasm of sigmoid colon R19.5, Other fecal abnormalities CPT copyright 2017 [employer]. All rights reserved. The codes documented in this report are preliminary and upon buck swamper review may be revised to meet current compliance requirements. MD Elder Nolasco MD 02/06/2020 8:41:51 AM This report has been signed electronically. Number of Addenda: 0 Note Initiated On: 02/06/2020 8:05 AM
[2020-02-06 08:45] VITALS: BP 129/67; BP 141/73; PULSE 62; RESP 16; TEMP 36.2; O2SAT 97
[2020-02-06 08:50] LABS: Bedside Glucose 120 mg/dL (70-110)
[2020-02-06 08:57] VITALS: BP 141/73
[2020-02-06 15:41] LABS: Prothrombin Time Fingerstick 24.5 SEC (11.9-14.4)
== END 2020-02-06 09:16 | disposition home or self-care (01) ==
LOC: EN 06:49 → AC 06:50
PROVIDERS: Anesthesiology; PCP Physician Assistant; Referring Provider Physician Assistant; Visit Provider Surgery
PROC: 0DJD8ZZ Inspection of Lower Intestinal Tract, Via Natural or Artificial Opening Endoscopic (ICD-10-PCS; CPT 45378; principal; 2020-02-06 07:55)
DX: R19.5 Other fecal abnormalities (principal); D12.5 Benign neoplasm of sigmoid colon; R68.81 Early satiety; R63.4 Abnormal weight loss; K29.70 Gastritis, unspecified, without bleeding; Z11.59 Encounter for screening for other viral diseases; R63.0 Anorexia; I13.0 Hypertensive heart and chronic kidney disease with heart failure and stage 1 through stage 4 chronic kidney disease, or unspecified chronic kidney disease; K44.9 Diaphragmatic hernia without obstruction or gangrene; I50.22 Chronic systolic (congestive) heart failure; N18.3 Chronic kidney disease, stage 3 (moderate); E11.22 Type 2 diabetes mellitus with diabetic chronic kidney disease; I25.2 Old myocardial infarction; E78.5 Hyperlipidemia, unspecified; Z79.899 Other long term (current) drug therapy; Z79.01 Long term (current) use of anticoagulants; Z87.891 Personal history of nicotine dependence
CPT/HCPCS: 43239; 45385; 36416; 82962; 85610; 87635; 88305; 88342; 94799; J7120; J1610; J2405; U0003

== ENCOUNTER 2020-03-19 08:32 | Outpatient (RCR) | payer MEDICARE, SELFPAY ==
[2020-03-06 10:05] LABS: Hemoglobin 12.3 g/dL (13.0-16.5); Mean Corp Hgb Conc 30.8 g/dL (32-36); Mean Corpuscular Hgb 29.4 pg (27.0-32.0); Mean Corpuscular Volume 95.5 fL (80-94); Mean Platelet Vol. 9.6 fl (6.2-12.0); Platelet Count 249 K/mm3 (150-450); RBC Distribution Width CV 13.7 % (11.6-14.6); RBC Distribution Width SD 48.1 fl (35.1-43.9); Red Blood Count 4.19 M/mm3 (4.6-6.2); White Blood Count 6.5 K/mm3 (4.4-11.0)
[2020-03-06 10:16] LABS: Prothrombin Time (Protime)PT. 22.2 SECONDS (11.7-14.9)
[2020-03-06 10:47] LABS: Albumin, Serum 3.3 g/dL (3.2-5.0); BUN 26 mg/dL (7-18); BUN/Creat Ratio 12.9 RATIO (10-20); Chloride 109 mmol/L (98-107); Creatinine, Serum 2.01 mg/dL (0.70-1.30); EST Glomerular Filtration Rate 34 mL/min (>60); Est Glom Filt Rate - Afr Amer 41 mL/min (>60); Ferritin 186 ng/mL (26-388); Glucose 100 mg/dL (74-106); Iron 89 ug/dL (65-175); Iron Binding Capacity,Total 255 ug/dL (250-450); PERCENT IRON SATURATION 34.9 % (15.0-55.0); Phosphorus 3.2 mg/dL (2.5-4.9); Potassium 4.6 mmol/L (3.5-5.1); Sodium Level 141 mmol/L (136-145)
== END 2020-03-19 18:00 | disposition home or self-care (01) ==
LOC: LAB 08:32
PROVIDERS: Internal Medicine Nephrology; Family Provider Physician Assistant; PCP Physician Assistant; Referring Provider Internal Medicine Cardiovascular Disease; Visit Provider Internal Medicine Cardiovascular Disease
DX: N18.4 Chronic kidney disease, stage 4 (severe) (principal); Z79.01 Long term (current) use of anticoagulants; D64.9 Anemia, unspecified; I48.0 Paroxysmal atrial fibrillation
CPT/HCPCS: 36415; 36416; 80069; 82728; 83540; 83550; 85027; 85610

== ENCOUNTER 2020-04-19 09:26 | Outpatient (RCR) | payer MEDICARE, SELFPAY ==
[2020-04-03 09:46] LABS: Prothrombin Time Fingerstick 21.9 SEC (11.9-14.4)
[2020-04-19 09:41] LABS: Prothrombin Time Fingerstick 22.2 SEC (11.9-14.4)
== END 2020-04-19 18:00 | disposition home or self-care (01) ==
LOC: LAB 09:26
PROVIDERS: Family Provider Physician Assistant; PCP Physician Assistant; Referring Provider Internal Medicine Cardiovascular Disease; Visit Provider Internal Medicine Cardiovascular Disease
DX: I48.0 Paroxysmal atrial fibrillation (principal); Z79.01 Long term (current) use of anticoagulants
CPT/HCPCS: 36416; 85610

== ENCOUNTER 2020-05-12 10:38 | Outpatient (RCR) | payer MEDICARE, SELFPAY ==
[2020-04-28 09:51] LABS: Prothrombin Time Fingerstick 24.8 SEC (11.9-14.4)
[2020-05-12 13:35] LABS: Prothrombin Time Fingerstick 29.3 SEC (11.9-14.4)
== END 2020-05-12 18:00 | disposition home or self-care (01) ==
LOC: LAB 10:38
PROVIDERS: Family Provider Physician Assistant; PCP Physician Assistant; Referring Provider Internal Medicine Cardiovascular Disease; Visit Provider Internal Medicine Cardiovascular Disease
DX: I48.0 Paroxysmal atrial fibrillation (principal); Z79.01 Long term (current) use of anticoagulants
CPT/HCPCS: 36416; 85610

== ENCOUNTER 2020-06-10 09:24 | Outpatient (RCR) | payer MEDICARE, SELFPAY ==
[2020-06-10 09:35] LABS: Prothrombin Time Fingerstick 29.4 SEC (11.9-14.4)
== END 2020-06-10 18:00 | disposition home or self-care (01) ==
LOC: LAB 09:24
PROVIDERS: Family Provider Physician Assistant; PCP Physician Assistant; Referring Provider Internal Medicine Cardiovascular Disease; Visit Provider Internal Medicine Cardiovascular Disease
DX: I48.0 Paroxysmal atrial fibrillation (principal); Z79.01 Long term (current) use of anticoagulants
CPT/HCPCS: 36416; 85610

== ENCOUNTER 2020-07-16 08:44 | Outpatient (RCR) | payer MEDICARE, SELFPAY | END 2020-07-16 18:00 | disposition home or self-care (01) | LOC: LAB 08:44 | PROVIDERS: Family Provider Physician Assistant; PCP Physician Assistant; Referring Provider Internal Medicine Cardiovascular Disease; Visit Provider Internal Medicine Cardiovascular Disease | DX: I48.0 Paroxysmal atrial fibrillation (principal); Z79.01 Long term (current) use of anticoagulants; N18.4 Chronic kidney disease, stage 4 (severe) | CPT/HCPCS: 36415; 80069; 83970; 85027; 85610 ==

== ENCOUNTER 2020-07-25 13:29 | Outpatient (RCR) | payer MEDICARE, SELFPAY | END 2020-07-25 23:59 | LOC: IMMUN 13:29 | PROVIDERS: PCP Physician Assistant; Visit Provider Family Medicine | DX: Z23 Encounter for immunization (principal) | CPT/HCPCS: 0011A; 0012A ==

== ENCOUNTER 2020-07-30 08:31 | Outpatient (RCR) | payer MEDICARE, SELFPAY | END 2020-07-30 18:00 | disposition home or self-care (01) | LOC: LAB 08:31 | PROVIDERS: Family Provider Physician Assistant; PCP Physician Assistant; Referring Provider Internal Medicine Cardiovascular Disease; Visit Provider Internal Medicine Cardiovascular Disease | DX: I48.0 Paroxysmal atrial fibrillation (principal); Z79.01 Long term (current) use of anticoagulants | CPT/HCPCS: 36416; 85610 ==

== ENCOUNTER 2020-08-27 08:35 | Outpatient (RCR) | payer MEDICARE, SELFPAY ==
[2020-08-27 08:51] LABS: Prothrombin Time Fingerstick 29.8 SEC (11.9-14.4)
== END 2020-08-27 18:00 | disposition home or self-care (01) ==
LOC: LAB 08:35
PROVIDERS: Family Provider Physician Assistant; PCP Physician Assistant; Referring Provider Internal Medicine Cardiovascular Disease; Visit Provider Internal Medicine Cardiovascular Disease
DX: Z79.01 Long term (current) use of anticoagulants (principal); I48.0 Paroxysmal atrial fibrillation
CPT/HCPCS: 36415; 36416; 80069; 83970; 85027; 85610

== ENCOUNTER → 2020-09-10 10:42 | Outpatient (CLI) | payer MEDICARE, SELFPAY ==
[2020-08-28 14:48] VITALS: BMI 28.5
--- NOTE | 2020-09-10 10:47 | ECHOD_ITS ---
Version 2 Reason For Study: CHF Procedure This was a 2D Doppler, Color Flow transthoracic echocardiogram. Exam performed in department. Left Ventricle Normal LV size. The estimated ejection fraction is 53 %. Mild segmental systolic dysfunction (see wall motion). Stage 1 diastolic dysfunction. [place] : Hypokinetic. Infero-Basal: Akinetic. Basal inferoseptal: Hypokinetic. There are regional wall motion abnormalities as specified. The rest of the wall segments are normal. Right Ventricle Normal RV size. ICD or pacer leads identified within the right ventricle. Normal systolic function. Atria The left atrium is mildly enlarged. Normal right atrium. Normal atrial septum. Mitral Valve Mild focal mitral valve calcification. Mild (1+) eccentric mitral valve insufficiency. Tricuspid Valve Normal tricuspid valve. Mild (1+) tricuspid valve insufficiency. Pulmonary artery systolic pressure is 38 mmHg. Aortic Valve Trisinus/trileaflet aortic valve. Mild focal aortic valve calcification. Mild (1+) eccentric aortic valve insufficiency. Pulmonic Valve Normal pulmonic valve. Great Vessels Normal aortic root. The pulmonary artery is normal size. Normal inferior vena cava. Pericardium/Pleural No pericardial effusion. MMode/2D Measurements & Calculations LVIDd: 5.0 cm IVSd: 1.2 cm Ao root diam: 3.9 cm LVIDs: 3.5 cm LVPWd: 1.0 cm LA dimension: 4.3 cm RVDd: 3.9 cm FS: 30.1 % LAV(MOD-bp): 53.0 ml LA A4 area: 22.4 cm2 RA A4 area: 15.5 cm2 LAV(MOD-bp) Indexed: 22.8 ml/m2 LAV(MOD-sp2): 36.8 ml LAV(MOD-sp4): 64.9 ml Time Measurements MV dec time: 0.41 sec Doppler Measurements & Calculations MV E max da: 47.9 cm/sec Lat Peak E' Da: 9.7 cm/sec Med Peak E' Da: 3.7 cm/sec MV A max da: 100.4 cm/sec E/E' lat: 5.0 E/E' med: 12.8 MV E/A: 0.48 MV V2 max: 111.7 cm/sec MV P1/2t max da: 55.9 cm/sec Ao V2 max: 129.0 cm/sec MV max P.0 mmHg MV P1/2t: 133.0 msec Ao max P.7 mmHg MV V2 mean: 50.9 cm/sec MV dec slope: 123.0 cm/sec2 MV mean P.3 mmHg MVA(P1/2t): 1.7 cm2 MV V2 VTI: 31.6 cm AI max da: 396.0 cm/sec LV V1 max: 106.8 cm/sec PA V2 max: 89.6 cm/sec AI max P.7 mmHg LV V1 max P.6 mmHg AI dec slope: 161.2 cm/sec2 AI P1/2t: 719.6 msec TR max da: 291.4 cm/sec TR max P.1 mmHg Interpretation Summary Normal LV size. The estimated ejection fraction is 53 %. Mild segmental systolic dysfunction (see wall motion). Stage 1 diastolic dysfunction. The left atrium is mildly enlarged. Mild (1+) eccentric mitral valve insufficiency. Mild (1+) eccentric aortic valve insufficiency. Ordering Physician: Loyd Plascencia Referring Physician: Rafael Hathaway Performed By: Lee Floyd RCS
== END ==
PROVIDERS: PCP Physician Assistant; Referring Provider Internal Medicine Cardiovascular Disease; Visit Provider Internal Medicine Cardiovascular Disease
DX: I44.2 Atrioventricular block, complete (principal)
CPT/HCPCS: 93306

== ENCOUNTER 2020-09-29 09:07 | Outpatient (RCR) | payer MEDICARE, SELFPAY ==
[2020-08-28 14:48] VITALS: BMI 28.5
[2020-10-06 11:51] LABS: INR Fingerstick 2.8; Prothrombin Time Fingerstick 31.2 SEC (11.9-14.4)
== END 2020-09-29 18:00 | disposition home or self-care (01) ==
LOC: LAB 09:07
PROVIDERS: Family Provider Physician Assistant; PCP Physician Assistant; Referring Provider Internal Medicine Cardiovascular Disease; Visit Provider Internal Medicine Cardiovascular Disease
DX: I48.0 Paroxysmal atrial fibrillation (principal); Z79.01 Long term (current) use of anticoagulants
CPT/HCPCS: 36416; 85610

== ENCOUNTER 2020-10-28 08:37 | Outpatient (RCR) | payer MEDICARE, SELFPAY ==
[2020-08-28 14:48] VITALS: BMI 28.5
[2020-10-28 09:30] LABS: Prothrombin Time Fingerstick 32.7 SEC (11.9-14.4)
== END 2020-10-28 18:00 | disposition home or self-care (01) ==
LOC: LAB 08:37
PROVIDERS: Family Provider Physician Assistant; PCP Physician Assistant; Referring Provider Internal Medicine Cardiovascular Disease; Visit Provider Internal Medicine Cardiovascular Disease
DX: I48.0 Paroxysmal atrial fibrillation (principal); Z79.01 Long term (current) use of anticoagulants
CPT/HCPCS: 36416; 85610

== ENCOUNTER 2020-12-01 08:07 | Outpatient (RCR) | payer MEDICARE, SELFPAY ==
[2020-08-28 14:48] VITALS: BMI 28.5
[2020-12-02 10:40] LABS: Prothrombin Time Fingerstick 32.9 SEC (11.9-14.4)
== END 2020-12-01 18:00 | disposition home or self-care (01) ==
LOC: LAB 08:07
PROVIDERS: Family Provider Physician Assistant; PCP Physician Assistant; Referring Provider Internal Medicine Cardiovascular Disease; Visit Provider Internal Medicine Cardiovascular Disease
DX: I48.0 Paroxysmal atrial fibrillation (principal); Z79.01 Long term (current) use of anticoagulants
CPT/HCPCS: 36416; 85610

== ENCOUNTER 2020-12-31 08:54 | Outpatient (RCR) | payer MEDICARE, SELFPAY ==
[2020-08-28 14:48] VITALS: BMI 28.5
[2020-12-31 09:06] LABS: INR Fingerstick 3.3; Prothrombin Time Fingerstick 36.2 SEC (11.9-14.4)
== END 2020-12-31 18:00 | disposition home or self-care (01) ==
LOC: LAB 08:54
PROVIDERS: Family Provider Physician Assistant; PCP Physician Assistant; Referring Provider Internal Medicine Cardiovascular Disease; Visit Provider Internal Medicine Cardiovascular Disease
DX: I48.0 Paroxysmal atrial fibrillation (principal); Z79.01 Long term (current) use of anticoagulants
CPT/HCPCS: 36416; 85610

== ENCOUNTER 2021-02-10 08:38 | Outpatient (RCR) | payer MEDICARE, SELFPAY ==
[2020-08-28 14:48] VITALS: BMI 28.5
[2021-01-19 08:10] LABS: Hematocrit 42.6 % (40-54); Hemoglobin 13.4 g/dL (13.0-16.5); Mean Corp Hgb Conc 31.5 g/dL (32-36); Mean Corpuscular Hgb 29.7 pg (27.0-32.0); Mean Corpuscular Volume 94.5 fL (80-94); Mean Platelet Vol. 9.7 fl (6.2-12.0); Platelet Count 203 K/mm3 (150-450); RBC Distribution Width CV 13.2 % (11.6-14.6); RBC Distribution Width SD 45.9 fl (35.1-43.9); Red Blood Count 4.51 M/mm3 (4.6-6.2); White Blood Count 5.7 K/mm3 (4.4-11.0)
[2021-01-19 08:42] LABS: Albumin, Serum 3.8 g/dL (3.2-5.0); BUN 35 mg/dL (7-18); BUN/Creat Ratio 17.2 RATIO (10-20); Calcium,Total 8.8 mg/dL (8.5-10.1); Chloride 109 mmol/L (98-107); Creatinine, Serum 2.03 mg/dL (0.70-1.30); EST Glomerular Filtration Rate 33 mL/min (>60); Est Glom Filt Rate - Afr Amer 40 mL/min (>60); Glucose 103 mg/dL (74-106); Phosphorus 3.3 mg/dL (2.5-4.9); Potassium 4.6 mmol/L (3.5-5.1); Sodium Level 138 mmol/L (136-145)
[2021-01-19 09:01] LABS: PTHIN 195.1 pg/mL (18.4-80.1)
[2021-01-19 09:05] LABS: International Normalized Ratio 2.8; Prothrombin Time (Protime)PT. 28.7 SECONDS (11.7-14.9)
[2021-02-10 08:45] LABS: INR Fingerstick 2.6; Prothrombin Time Fingerstick 28.6 SEC (11.9-14.4)
== END 2021-02-10 18:00 | disposition home or self-care (01) ==
LOC: LAB 08:38
PROVIDERS: Family Provider Physician Assistant; PCP Physician Assistant; Referring Provider Internal Medicine Cardiovascular Disease; Visit Provider Internal Medicine Cardiovascular Disease
DX: I48.0 Paroxysmal atrial fibrillation (principal); Z79.01 Long term (current) use of anticoagulants; N18.4 Chronic kidney disease, stage 4 (severe)
CPT/HCPCS: 36415; 36416; 80069; 83970; 85027; 85610

== ENCOUNTER 2021-03-10 08:42 | Outpatient (RCR) | payer MEDICARE, SELFPAY ==
[2021-02-17 23:23] VITALS: BMI 28.5
[2021-03-10 09:06] LABS: INR Fingerstick 2.8; Prothrombin Time Fingerstick 30.9 SEC (11.9-14.4)
== END 2021-03-10 18:00 | disposition home or self-care (01) ==
LOC: LAB 08:42
PROVIDERS: Family Provider Physician Assistant; PCP Physician Assistant; Referring Provider Internal Medicine Cardiovascular Disease; Visit Provider Internal Medicine Cardiovascular Disease
DX: I48.0 Paroxysmal atrial fibrillation (principal); Z79.01 Long term (current) use of anticoagulants
CPT/HCPCS: 36416; 85610

== ENCOUNTER 2021-04-08 10:07 | Outpatient (RCR) | payer MEDICARE, SELFPAY ==
[2021-03-19 20:44] VITALS: BMI 28.5
[2021-04-06 11:41] LABS: INR Fingerstick 2.6; Prothrombin Time Fingerstick 29.4 SEC (11.9-14.4)
[2021-04-08 12:08] LABS: Hematocrit 40.8 % (40-54); Hemoglobin 12.8 g/dL (13.0-16.5); Mean Corp Hgb Conc 31.4 g/dL (32-36); Mean Corpuscular Hgb 30.5 pg (27.0-32.0); Mean Corpuscular Volume 97.4 fL (80-94); Mean Platelet Vol. 10.1 fl (6.2-12.0); Platelet Count 215 K/mm3 (150-450); RBC Distribution Width CV 13.2 % (11.6-14.6); Red Blood Count 4.19 M/mm3 (4.6-6.2); White Blood Count 6.4 K/mm3 (4.4-11.0)
[2021-04-08 12:50] LABS: Anion Gap 6 (5-15); BUN 30 mg/dL (7-18); BUN/Creat Ratio 15.7 RATIO (10-20); Calcium,Total 9.1 mg/dL (8.5-10.1); Chloride 108 mmol/L (98-107); Creatinine, Serum 1.91 mg/dL (0.70-1.30); EST Glomerular Filtration Rate 36 mL/min (>60); Est Glom Filt Rate - Afr Amer 43 mL/min (>60); Glucose 123 mg/dL (74-106); Magnesium 1.7 mg/dL (1.6-2.6); Potassium 4.8 mmol/L (3.5-5.1); Sodium Level 140 mmol/L (136-145); Thyroid Stim Hormone (TSH) 1.94 uIU/mL (0.358-3.74)
== END 2021-04-19 19:46 | disposition home or self-care (01) ==
LOC: LAB 10:07
PROVIDERS: Family Provider Physician Assistant; PCP Physician Assistant; Referring Provider Internal Medicine Cardiovascular Disease; Visit Provider Internal Medicine Cardiovascular Disease
DX: I48.0 Paroxysmal atrial fibrillation (principal); Z79.01 Long term (current) use of anticoagulants; N18.4 Chronic kidney disease, stage 4 (severe); I47.2 Ventricular tachycardia; Z95.0 Presence of cardiac pacemaker; I49.5 Sick sinus syndrome; I44.2 Atrioventricular block, complete; I44.1 Atrioventricular block, second degree; I50.22 Chronic systolic (congestive) heart failure; I42.8 Other cardiomyopathies
CPT/HCPCS: 36415; 36416; 80048; 83735; 84443; 85027; 85610

== ENCOUNTER 2021-05-05 09:08 | Outpatient (RCR) | payer MEDICARE, SELFPAY ==
[2021-04-19 19:46] VITALS: BMI 28.5
[2021-05-05 09:20] LABS: INR Fingerstick 3.6; Prothrombin Time Fingerstick 38.9 SEC (11.9-14.4)
== END 2021-05-19 18:00 | disposition home or self-care (01) ==
LOC: LAB 09:08
PROVIDERS: Family Provider Physician Assistant; PCP Physician Assistant; Referring Provider Internal Medicine Cardiovascular Disease; Visit Provider Internal Medicine Cardiovascular Disease
DX: I48.0 Paroxysmal atrial fibrillation (principal); Z79.01 Long term (current) use of anticoagulants
CPT/HCPCS: 36416; 85610

== ENCOUNTER 2021-06-16 09:22 | Outpatient (RCR) | payer MEDICARE, SELFPAY ==
[2021-05-20 03:23] VITALS: BMI 28.5
[2021-05-20 09:21] LABS: INR Fingerstick 3.6; Prothrombin Time Fingerstick 39.4 SEC (11.9-14.4)
[2021-06-03 14:56] LABS: INR Fingerstick 3.1; Prothrombin Time Fingerstick 34.1 SEC (11.9-14.4)
[2021-06-16 09:40] LABS: INR Fingerstick 3.6; Prothrombin Time Fingerstick 39.4 SEC (11.9-14.4)
== END 2021-06-20 18:00 | disposition home or self-care (01) ==
LOC: LAB 09:22
PROVIDERS: Family Provider Physician Assistant; PCP Physician Assistant; Referring Provider Internal Medicine Cardiovascular Disease; Visit Provider Internal Medicine Cardiovascular Disease
DX: I48.0 Paroxysmal atrial fibrillation (principal); Z79.01 Long term (current) use of anticoagulants
CPT/HCPCS: 36416; 85610

== ENCOUNTER 2021-06-29 09:25 | Outpatient (RCR) | payer MEDICARE, SELFPAY ==
[2021-06-21 04:20] VITALS: BMI 28.5
[2021-06-29 09:41] LABS: INR Fingerstick 3.1; Prothrombin Time Fingerstick 34.9 SEC (11.9-14.4)
== END 2021-07-20 18:00 | disposition home or self-care (01) ==
LOC: LAB 09:25
PROVIDERS: Family Provider Physician Assistant; PCP Physician Assistant; Referring Provider Internal Medicine Cardiovascular Disease; Visit Provider Internal Medicine Cardiovascular Disease
DX: I48.0 Paroxysmal atrial fibrillation (principal); Z79.01 Long term (current) use of anticoagulants
CPT/HCPCS: 36416; 85610

== ENCOUNTER 2021-08-05 10:30 | Outpatient (RCR) | payer MEDICARE, SELFPAY ==
[2021-07-21 01:12] VITALS: BMI 28.5
[2021-07-27 09:13] LABS: Hematocrit 40.6 % (40-54); Mean Corpuscular Volume 96.9 fL (80-94); Mean Platelet Vol. 9.7 fl (6.2-12.0); Platelet Count 184 K/mm3 (150-450); RBC Distribution Width CV 13.1 % (11.6-14.6); RBC Distribution Width SD 46.3 fl (35.1-43.9); Red Blood Count 4.19 M/mm3 (4.6-6.2); White Blood Count 5.6 K/mm3 (4.4-11.0)
[2021-07-27 09:24] LABS: Protein, Urine (Random) 9.5 mg/dL (<11.9); Protein:Creat Ratio 103 mg/g CRE (0-200)
[2021-07-27 09:31] LABS: International Normalized Ratio 3.6; Prothrombin Time (Protime)PT. 35.4 SECONDS (11.7-14.9)
[2021-07-27 09:43] LABS: Albumin, Serum 3.6 g/dL (3.2-5.0); BUN 31 mg/dL (7-18); Calcium,Total 8.5 mg/dL (8.5-10.1); Chloride 109 mmol/L (98-107); Creatinine, Serum 2.06 mg/dL (0.70-1.30); EST Glomerular Filtration Rate 33 mL/min (>60); Est Glom Filt Rate - Afr Amer 40 mL/min (>60); Glucose 104 mg/dL (74-106); Phosphorus 2.6 mg/dL (2.5-4.9); Sodium Level 140 mmol/L (136-145)
[2021-08-05 11:46] LABS: INR Fingerstick 2.7; Prothrombin Time Fingerstick 31.5 SEC (11.9-14.4)
== END 2021-08-05 23:59 | disposition home or self-care (01) ==
LOC: LAB 10:30
PROVIDERS: Family Provider Physician Assistant; PCP Physician Assistant; Referring Provider Internal Medicine Cardiovascular Disease; Visit Provider Internal Medicine Cardiovascular Disease
DX: I48.0 Paroxysmal atrial fibrillation (principal); Z79.01 Long term (current) use of anticoagulants
CPT/HCPCS: 36415; 36416; 80069; 82570; 83970; 84156; 85027; 85610

== ENCOUNTER 2021-09-09 08:42 | Outpatient (RCR) | payer MEDICARE, SELFPAY ==
[2021-08-18 09:43] VITALS: BMI 28.5
[2021-08-19 08:25] LABS: INR Fingerstick 2.8; Prothrombin Time Fingerstick 32.4 SEC (11.9-14.4)
[2021-09-10 11:56] LABS: INR Fingerstick 2.5; Prothrombin Time Fingerstick 28.9 SEC (11.7-14.9)
== END 2021-09-17 18:00 | disposition home or self-care (01) ==
LOC: LAB 08:42
PROVIDERS: Family Provider Physician Assistant; PCP Physician Assistant; Referring Provider Internal Medicine Cardiovascular Disease; Visit Provider Internal Medicine Cardiovascular Disease
DX: I48.0 Paroxysmal atrial fibrillation (principal); Z79.01 Long term (current) use of anticoagulants
CPT/HCPCS: 36416; 85610

== ENCOUNTER 2021-10-08 08:39 | Outpatient (RCR) | payer MEDICARE, SELFPAY ==
[2021-09-18 02:28] VITALS: BMI 28.5
[2021-10-08 08:50] LABS: INR Fingerstick 2.1; Prothrombin Time Fingerstick 25.1 SEC (11.7-14.9)
== END 2021-10-08 18:00 | disposition home or self-care (01) ==
LOC: LAB 08:39
PROVIDERS: Family Provider Physician Assistant; PCP Physician Assistant; Referring Provider Internal Medicine Cardiovascular Disease; Visit Provider Internal Medicine Cardiovascular Disease
DX: I48.0 Paroxysmal atrial fibrillation (principal); Z79.01 Long term (current) use of anticoagulants
CPT/HCPCS: 36416; 85610

== ENCOUNTER 2021-11-11 09:41 | Outpatient (RCR) | payer MEDICARE, SELFPAY ==
[2021-10-18 03:25] VITALS: BMI 28.5
[2021-11-11 09:51] LABS: INR Fingerstick 2.2
== END 2021-11-11 18:00 | disposition home or self-care (01) ==
LOC: LAB 09:41
PROVIDERS: Family Provider Physician Assistant; PCP Physician Assistant; Referring Provider Internal Medicine Cardiovascular Disease; Visit Provider Internal Medicine Cardiovascular Disease
DX: I48.0 Paroxysmal atrial fibrillation (principal); Z79.01 Long term (current) use of anticoagulants
CPT/HCPCS: 36416; 85610

== ENCOUNTER → 2021-11-27 | Outpatient (CLI) | payer MEDICARE, SELFPAY ==
[2021-11-27 08:44] LABS: Hematocrit 38.9 % (40-54); Hemoglobin 12.7 g/dL (13.0-16.5); Mean Corp Hgb Conc 32.6 g/dL (32-36); Mean Corpuscular Hgb 32.2 pg (27.0-32.0); Mean Corpuscular Volume 98.7 fL (80-94); Mean Platelet Vol. 9.7 fl (6.2-12.0); Platelet Count 189 K/mm3 (150-450); RBC Distribution Width CV 13.2 % (11.6-14.6); RBC Distribution Width SD 47.9 fl (35.1-43.9); Red Blood Count 3.94 M/mm3 (4.6-6.2); White Blood Count 5.1 K/mm3 (4.4-11.0)
[2021-11-27 09:08] LABS: Albumin, Serum 3.4 g/dL (3.2-5.0); BUN 27 mg/dL (7-18); BUN/Creat Ratio 12.2 RATIO (10-20); Calcium,Total 8.6 mg/dL (8.5-10.1); Chloride 109 mmol/L (98-107); Creatinine, Serum 2.22 mg/dL (0.70-1.30); EST Glomerular Filtration Rate 30 mL/min (>60); Est Glom Filt Rate - Afr Amer 36 mL/min (>60); Glucose 107 mg/dL (74-106); Phosphorus 2.9 mg/dL (2.5-4.9); Potassium 4.4 mmol/L (3.5-5.1); Sodium Level 140 mmol/L (136-145)
[2021-11-27 09:17] LABS: PTHIN 203.5 pg/mL (18.4-80.1)
== END | disposition home or self-care (01) ==
LOC: LAB 08:15
PROVIDERS: PCP Physician Assistant; Referring Provider Internal Medicine Nephrology; Visit Provider Internal Medicine Nephrology
DX: N18.4 Chronic kidney disease, stage 4 (severe) (principal); N25.81 Secondary hyperparathyroidism of renal origin
CPT/HCPCS: 36415; 80069; 83970; 85027

== ENCOUNTER 2021-12-08 08:17 | Outpatient (RCR) | payer MEDICARE, SELFPAY ==
[2021-11-17 20:45] VITALS: BMI 28.5
[2021-12-08 08:31] LABS: INR Fingerstick 2.2; Prothrombin Time Fingerstick 26.1 SEC (11.7-14.9)
== END 2021-12-08 23:59 | disposition home or self-care (01) ==
LOC: LAB 08:17
PROVIDERS: Family Provider Physician Assistant; PCP Physician Assistant; Referring Provider Internal Medicine Cardiovascular Disease; Visit Provider Internal Medicine Cardiovascular Disease
DX: I48.0 Paroxysmal atrial fibrillation (principal); Z79.01 Long term (current) use of anticoagulants
CPT/HCPCS: 36416; 85610

== ENCOUNTER 2022-01-08 13:13 | Outpatient (RCR) | payer MEDICARE, SELFPAY ==
[2021-12-18 07:04] VITALS: BMI 28.5
[2022-01-08 14:09] LABS: International Normalized Ratio 2.4; Prothrombin Time (Protime)PT. 25.4 SECONDS (11.7-14.9)
[2022-01-08 14:41] LABS: AST(SGOT) 16 U/L (15-37); Alanine Aminotransfer ALT/SGPT 18 U/L (16-61); Albumin, Serum 3.6 g/dL (3.2-5.0); Alkaline Phosphatase 43 U/L (45-117); Anion Gap 6 (5-15); BUN 32 mg/dL (7-18); BUN/Creat Ratio 13.3 RATIO (10-20); Bilirubin, Direct 0.15 mg/dL (0.00-0.30); Calcium,Total 8.7 mg/dL (8.5-10.1); Chloride 111 mmol/L (98-107); Creatinine, Serum 2.41 mg/dL (0.70-1.30); EST Glomerular Filtration Rate 27 mL/min (>60); Est Glom Filt Rate - Afr Amer 33 mL/min (>60); Globulin 3.2 g/dL (2.2-4.2); Glucose 118 mg/dL (74-106); Potassium 5.3 mmol/L (3.5-5.1); Protein, Total 6.8 g/dL (6.4-8.2); Sodium Level 139 mmol/L (136-145); Thyroid Stim Hormone (TSH) 1.73 uIU/mL (0.358-3.74)
== END 2022-01-17 02:39 | disposition home or self-care (01) ==
LOC: LAB 13:13
PROVIDERS: Family Provider Physician Assistant; PCP Physician Assistant; Referring Provider Internal Medicine Cardiovascular Disease; Visit Provider Internal Medicine Cardiovascular Disease
DX: I48.0 Paroxysmal atrial fibrillation (principal); Z79.01 Long term (current) use of anticoagulants; N18.4 Chronic kidney disease, stage 4 (severe); N25.81 Secondary hyperparathyroidism of renal origin; Z79.899 Other long term (current) drug therapy
CPT/HCPCS: 36415; 80048; 80076; 84443; 85610

== ENCOUNTER → 2022-01-08 | Outpatient (CLI) | payer MEDICARE, SELFPAY ==
--- NOTE | 2022-01-08 13:31 | RAD_ITS ---
EXAM: XR CHEST, 2 VIEWS CLINICAL INDICATION: paf TECHNIQUE: Frontal and lateral views of the chest. This report was created using [employer] report generation technology. COMPARISON: 01/27/2017 FINDINGS: LUNGS AND PLEURAL SPACES: Unremarkable. No consolidation or edema. No pneumothorax. No effusion. HEART: Unremarkable. Cardiac silhouette not enlarged. MEDIASTINUM: There is a moderate-sized hiatal hernia. BONES/JOINTS: Unremarkable. SOFT TISSUES: Unremarkable. TUBES, LINES AND DEVICES: Left-sided pacemaker in stable position. RAD/Chest PA and Lateral IMPRESSION: Moderate size hiatal hernia. There is no pulmonary abnormality. Electronically Signed: Gareth Flores MD at 3:10 EDT ,
== END | disposition home or self-care (01) ==
LOC: LAB.FUTURE 13:30
PROVIDERS: PCP Physician Assistant; Referring Provider Internal Medicine Nephrology; Visit Provider Internal Medicine Nephrology
DX: I48.0 Paroxysmal atrial fibrillation (principal); N18.4 Chronic kidney disease, stage 4 (severe); N25.81 Secondary hyperparathyroidism of renal origin; Z79.01 Long term (current) use of anticoagulants; Z79.899 Other long term (current) drug therapy
CPT/HCPCS: 36415; 71046; 80048; 80076; 84443; 85610

== ENCOUNTER 2022-02-16 08:51 | Outpatient (RCR) | payer MEDICARE, SELFPAY ==
[2022-01-17 02:40] VITALS: BMI 28.5
[2022-02-16 09:06] LABS: INR Fingerstick 4.2; Prothrombin Time Fingerstick 46.8 SEC (11.7-14.9)
[2022-02-16 09:25] LABS: Prothrombin Time (Protime)PT. 42.9 SECONDS (11.7-14.9)
[2022-02-16 09:29] LABS: International Normalized Ratio 4.5
== END 2022-02-16 18:00 | disposition home or self-care (01) ==
LOC: LAB 08:51
PROVIDERS: Family Provider Physician Assistant; PCP Physician Assistant; Referring Provider Internal Medicine Cardiovascular Disease; Visit Provider Internal Medicine Cardiovascular Disease
DX: I48.0 Paroxysmal atrial fibrillation (principal); Z79.01 Long term (current) use of anticoagulants
CPT/HCPCS: 36415; 36416; 85610

== ENCOUNTER 2022-03-15 09:46 | Outpatient (RCR) | payer MEDICARE, SELFPAY ==
[2022-02-17 23:04] VITALS: BMI 28.5
[2022-02-23 09:56] LABS: INR Fingerstick 2.6; Prothrombin Time Fingerstick 29.9 SEC (11.7-14.9)
[2022-03-15 09:55] LABS: INR Fingerstick 2.2
== END 2022-03-15 18:00 | disposition home or self-care (01) ==
LOC: LAB 09:46
PROVIDERS: Family Provider Physician Assistant; PCP Physician Assistant; Referring Provider Internal Medicine Cardiovascular Disease; Visit Provider Internal Medicine Cardiovascular Disease
DX: I48.0 Paroxysmal atrial fibrillation (principal); Z79.01 Long term (current) use of anticoagulants; N18.4 Chronic kidney disease, stage 4 (severe); N25.81 Secondary hyperparathyroidism of renal origin; Z79.899 Other long term (current) drug therapy
CPT/HCPCS: 36416; 85610

== ENCOUNTER 2022-04-15 10:43 | Outpatient (RCR) | payer MEDICARE, SELFPAY ==
[2022-03-19 21:36] VITALS: BMI 28.5
[2022-04-15 11:45] LABS: International Normalized Ratio 2.3; Prothrombin Time (Protime)PT. 25.4 SECONDS (11.7-14.9)
[2022-04-15 11:59] LABS: Albumin, Serum 3.5 g/dL (3.2-5.0); BUN 31 mg/dL (7-18); BUN/Creat Ratio 14.4 RATIO (10-20); Calcium,Total 9.1 mg/dL (8.5-10.1); Chloride 112 mmol/L (98-107); Creatinine, Serum 2.15 mg/dL (0.70-1.30); EST Glomerular Filtration Rate 31 mL/min (>60); Est Glom Filt Rate - Afr Amer 38 mL/min (>60); Glucose 123 mg/dL (74-106); Phosphorus 2.7 mg/dL (2.5-4.9); Potassium 4.9 mmol/L (3.5-5.1); Sodium Level 142 mmol/L (136-145)
[2022-04-15 12:01] LABS: PTHIN 209.4 pg/mL (18.4-80.1)
[2022-04-15 12:05] LABS: Vitamin D,25 Hydroxy 35.4 ng/mL
== END 2022-04-15 18:00 | disposition home or self-care (01) ==
LOC: LAB 10:43
PROVIDERS: Family Provider Physician Assistant; PCP Physician Assistant; Referring Provider Internal Medicine Cardiovascular Disease; Visit Provider Internal Medicine Cardiovascular Disease
DX: I48.0 Paroxysmal atrial fibrillation (principal); Z79.01 Long term (current) use of anticoagulants; N18.4 Chronic kidney disease, stage 4 (severe); N25.81 Secondary hyperparathyroidism of renal origin; Z79.899 Other long term (current) drug therapy
CPT/HCPCS: 36415; 80069; 82306; 83970; 85610

== ENCOUNTER 2022-05-27 09:24 | Outpatient (RCR) | payer MEDICARE, SELFPAY ==
[2022-04-20 09:39] VITALS: BMI 28.5
[2022-05-20 10:01] LABS: INR Fingerstick 3.5; Prothrombin Time Fingerstick 39.4 SEC (11.7-14.9)
[2022-05-27 09:31] LABS: INR Fingerstick 2.8; Prothrombin Time Fingerstick 32.6 SEC (11.7-14.9)
== END 2022-05-27 18:00 | disposition home or self-care (01) ==
LOC: LAB 09:24
PROVIDERS: Family Provider Physician Assistant; PCP Physician Assistant; Referring Provider Internal Medicine Cardiovascular Disease; Visit Provider Internal Medicine Cardiovascular Disease
DX: I48.0 Paroxysmal atrial fibrillation; Z79.01 Long term (current) use of anticoagulants
CPT/HCPCS: 36416; 85610

== ENCOUNTER 2022-06-23 08:36 | Outpatient (RCR) | payer MEDICARE, SELFPAY ==
[2022-06-20 03:55] VITALS: BMI 28.5
[2022-06-23 08:46] LABS: INR Fingerstick 2.2; Prothrombin Time Fingerstick 25.4 SEC (11.7-14.9)
== END 2022-06-23 10:00 | disposition home or self-care (01) ==
LOC: LAB 08:36
PROVIDERS: Family Provider Physician Assistant; PCP Physician Assistant; Referring Provider Internal Medicine Cardiovascular Disease; Visit Provider Internal Medicine Cardiovascular Disease
DX: I48.0 Paroxysmal atrial fibrillation (principal); Z79.01 Long term (current) use of anticoagulants; N18.4 Chronic kidney disease, stage 4 (severe); N25.81 Secondary hyperparathyroidism of renal origin; Z79.899 Other long term (current) drug therapy
CPT/HCPCS: 36416; 85610

== ENCOUNTER 2022-07-12 05:06 | Emergency (ER) | payer MEDICARE, SELFPAY ==
[2022-07-12 05:06] VITALS: BP 161/77; PULSE 63; RESP 18; TEMP 35.9; O2SAT 96; BMI 28.8
--- NOTE | 2022-07-12 05:23 | EX.ED.DYSGE1 ---
HPI History of Present Illness Chief Complaint: Other, Pain/Inj Informant: patient Narrative Narrative: Brought by EMS from home nontraumatic neck pain yesterday afternoon. He states he woke up fine while on the table he felt sharp pains lateral neck worse when he turns. No pain down the arms. No weakness in the arms. He took his home Vicodin with no relief. History of diabetes. History of A. fib with pacemaker on warfarin. History of CKD. Prior similar symptoms: No PFSH PFSH Medical History Aortic valve calcification Arthritis Atrioventricular block, complete Atrioventricular block, Mobitz type 2 Chronic renal disease, stage 3, moderately decreased glomerular filtration rate between 30-59 mL/min/1.73 square meter Chronic systolic (congestive) heart failure Essential (primary) hypertension History of non-ST elevation myocardial infarction (NSTEMI) (01/26/17) Hyperlipidemia Non-ischemic cardiomyopathy Old myocardial infarction Paroxysmal atrial fibrillation Tachy-mary syndrome Type 2 diabetes mellitus Ventricular tachycardia (paroxysmal) (03/2021) Home Medications cyanocobalamin (vitamin B-12) 1,000 mcg sublingual tablet 1,000 mcg sublingual DAILY supplement 01/24/17 [History Last Taken 01/24/17] omeprazole 20 mg capsule,delayed release 20 mg PO DAILY acid reflux 01/24/17 [History Last Taken 01/24/17] simvastatin 20 mg tablet 20 mg PO QHS cholesterol lowering 01/24/17 [History Last Taken 01/23/17] trazodone 50 mg tablet 50 mg PO QHS PRN PRN Insomnia 01/24/17 [History Last Taken 01/23/17] carvedilol 25 mg tablet 25 mg PO BID 06/14/19 [History Last Taken Unknown] spironolactone 25 mg tablet 12.5 mg PO DAILY 01/14/20 [History Last Taken Unknown] warfarin 5 mg tablet (Coumadin) 2.5 mg PO SUTUWEFRSA 04/21/20 [History Last Taken Unknown] loratadine 10 mg tablet 10 mg PO DAILY 08/28/20 [History Last Taken Unknown] acetaminophen 500 mg tablet (Tylenol Extra Strength) 500 mg PO Q6H PRN 03/02/21 [History Last Taken Unknown] losartan 50 mg tablet 50 mg PO DAILY 30 days #30 tabs 03/02/21 [History Last Taken Unknown] polyethylene glycol 3350 17 gram/dose oral powder (Miralax) 17 g PO DAILY PRN constipation 03/02/21 [History Last Taken Unknown] torsemide 5 mg tablet 2.5 mg PO DAILY 03/02/21 [History Last Taken Unknown] warfarin 1 mg tablet 1 mg PO .COMPLEX #60 tabs 02/26/22 [Rx Last Taken Unknown] amiodarone 200 mg tablet 200 mg PO DAILY #90 tabs 03/29/22 [Rx Last Taken Unknown] prednisone 20 mg tablet 40 mg PO DAILY #10 tabs 07/12/22 [Rx Last Taken Unknown] tizanidine 2 mg capsule (Zanaflex) 2 mg PO Q8H PRN muscle spasticity #12 caps 07/12/22 [Rx Last Taken Unknown] Allergy/AdvReac Type Severity Reaction Status Date / Time lisinopril Allergy Severe rash Verified 07/05/22 10:19 amlodipine Allergy Intermediate Rash Verified 07/05/22 10:19 atorvastatin [From Lipitor] Allergy Unknown Verified 07/05/22 10:19 doxazosin Allergy Unknown Verified 07/05/22 10:19 hydrochlorothiazide Allergy Unknown Verified 07/05/22 10:19 niacin Allergy Unknown Verified 07/05/22 10:19 [From Niaspan Extended-Release] propranolol [From Inderal LA] Allergy Unknown Verified 07/05/22 10:19 quinine Allergy Unknown Verified 07/05/22 10:19 tamsulosin [From Flomax] Allergy Unknown Verified 07/05/22 10:19 verapamil [From Calan] Allergy Unknown Verified 07/05/22 10:19 Family History Father CAD (coronary artery disease) Brother CAD (coronary artery disease) Surgical History Cardiac pacemaker in situ (01/26/17) History of esophagogastroduodenoscopy (EGD) History of loop recorder History of open reduction and internal fixation (ORIF) procedure Hx of colonoscopy Social History Smoking Status: Former smoker how long ago did patient quit smokin alcohol intake: current alcohol intake frequency: a few times a week Alcohol type: hard liquor substance use type: does not use caffeine: Yes Type: coffee Number of servings: 3 what type of physical activity do you participate in: none seatbelt use: always do you feel safe at home: Yes ROS ROS ED Constitutional Constitutional ED: Denies chills, fever(s) or sweats Eyes Eyes: Denies change in vision ENT ENT ED: Denies dysphagia or sore throat Cardiovascular Cardiovascular: Denies chest pain, leg edema, palpitations or racing heartbeat Respiratory/Chest Respiratory/Chest: Denies cough, dyspnea or dyspnea on exertion Gastrointestinal Gastrointestinal: Denies abdominal pain, diarrhea, nausea or vomiting Genitourinary Genitourinary ED: Denies dysuria, hematuria or urinary frequency Musculoskeletal Musculoskeletal: Reports neck pain; Denies back pain or extremity pain Integumentary Denies rash or wounds Neurologic Neurologic: Denies headache(s), paresthesias or weakness EXAM Physical Exam Const Vital Signs: 07/12/22 05:06 07/12/22 05:06 07/12/22 05:11 Temperature 96.6 F L Temperature Source Temporal Pulse Rate 63 Respiratory Rate 18 Respiratory Effort Normal Non-Labored Respiratory Pattern Normal Blood Pressure 161/77 H Blood Pressure Mean 105 Pulse Ox 96 Oxygen Delivery Method Room Air Positive well nourished and well developed General Appearance ED: well developed and NAD HEENT Reports moist mucous membranes normocephalic and atraumatic Eyes PERRL, EOMs intact bilaterally and conjunctivae normal General Eye ED: Yes normal appearance of both eyes Neck no lymphadenopathy and supple Neck Narrative: No midline tenderness tender however cervical bilateral also tenderness at the left SCM. General: tenderness Chest Wall Chest: Negative for tenderness Resp normal respiratory effort and normal air movement Effort and Inspection: symmetric chest movement; Negative for respiratory distress Cardio regular rate, regular rhythm and no murmurs Peripheral Pulses: pulses 2+ throughout GI normal to inspection, nondistended, normoactive bowel sounds and non-tender Palpation: Negative for guarding or rebound tenderness present Back/Spine no CVA tenderness and no thoracic nor lumbar tenderness Extremity normal to inspection General Extremety ED: Negative for edema or tenderness General Extremity: Negative for edema Neuro oriented x3 and no sensory deficits noted Sensorium / Orientation: awake and alert Skin no rashes or lesions noted and no wounds MDM MDM MDM Narrative Medical decision making narrative: Patient denies any trauma history exam differential more concerning for muscle strain with torticollis. Lower suspicion for any fractures. No radicular symptoms for concerning radiculopathy. I treated him with Valium p.o. he is monitored. Reevaluation states no change. Therefore x-ray cervical spine 5 views obtained interpreted by myself and read by radiology degenerative changes with no fractures. Is more reassured. He is a diet-controlled diabetic who is on warfarin for A. fib. Will avoid NSAIDs. Is willing to try steroids to help with symptoms. We will also change his muscle relaxer to Zanaflex to use 3 times a day as needed. He will follow-up with his PCP outpatient reevaluation further treatment as needed. All questions were answered. Radiography Diagnostic Testing: Clinical Impression(s) from Imaging Studies Cervical Spine X-Ray 07/12/22 06:12 IMPRESSION: Cervical degenerative changes. No acute fracture identified. Electronically Signed: Guanakito Chanel MD at 6:53 EST , Discharge Plan Triage Chief Complaint: Other, Pain/Inj ED Provider: Moe Anderson Dx/Rx/DC Orders Clinical Impression: Acute torticollis, Neck muscle strain Instructions: Torticollis (Wry Neck) Prescriptions: New tizanidine [Zanaflex] 2 mg capsule 2 mg PO Q8H PRN (Reason: muscle spasticity) Qty: 12 0RF prednisone 20 mg tablet 40 mg PO DAILY Qty: 10 0RF No Action losartan 50 mg tablet 50 mg PO DAILY 30 Days Qty: 30 Label Comments: spironolactone 25 mg tablet 12.5 mg PO DAILY carvedilol 25 mg tablet 25 mg PO BID torsemide 5 mg tablet 2.5 mg PO DAILY loratadine 10 mg tablet 10 mg PO DAILY Label Comments: TAKE 1 TABLET BY MOUTH ONCE DAILY polyethylene glycol 3350 [Miralax] 17 gram/dose powder 17 g PO DAILY PRN (Reason: constipation) acetaminophen [Tylenol Extra Strength] 500 mg tablet 500 mg PO Q6H PRN trazodone 50 MG tablet 50 mg PO QHS PRN PRN (Reason: Insomnia) simvastatin 20 MG tablet 20 mg PO QHS omeprazole 20 MG capsule 20 mg PO DAILY cyanocobalamin (vitamin B-12) 1,000 MCG tablet, sublingual 1,000 mcg SL DAILY warfarin [Coumadin] 5 mg tablet 2.5 mg PO SUTUWEFRSA Protocol: Dose Management Condition: Tuesday Dose/Route: 2.5 mg Instruction: 0.5 x 5 mg tablets Condition: Tuesday Dose/Route: 2.5 mg Instruction: 0.5 x 5 mg tablets Condition: Tuesday Dose/Route: 1 mg Instruction: 1 x 1 mg tablet Condition: Tuesday Dose/Route: 1 mg Instruction: 1 x 1 mg tablet Condition: Dose/Route: 1 mg Instruction: 1 x 1 mg tablet Condition: Tuesday Dose/Route: 1 mg Instruction: 1 x 1 mg tablet Condition: Tuesday Dose/Route: 2.5 mg Instruction: 0.5 x 5 mg tablets Protocol Text: Adjustment Start Date: Tuesday06/23/22 INR Value: 2.2 INR Date: 06/23/22 Recheck Date: 07/21/22 warfarin 1 mg tablet 1 mg PO .COMPLEX Qty: 60 3RF Protocol: Dose Management Condition: Tuesday Dose/Route: 2.5 mg Instruction: 0.5 x 5 mg tablets Condition: Tuesday Dose/Route: 2.5 mg Instruction: 0.5 x 5 mg tablets Condition: Tuesday Dose/Route: 1 mg Instruction: 1 x 1 mg tablet Condition: Tuesday Dose/Route: 1 mg Instruction: 1 x 1 mg tablet Condition: Dose/Route: 1 mg Instruction: 1 x 1 mg tablet Condition: Tuesday Dose/Route: 1 mg Instruction: 1 x 1 mg tablet Condition: Tuesday Dose/Route: 2.5 mg Instruction: 0.5 x 5 mg tablets Protocol Text: Adjustment Start Date: Tuesday06/23/22 INR Value: 2.2 INR Date: 06/23/22 Recheck Date: 07/21/22 Rx Instructions: 1 mg orally on , , (takes a 2.5 mg tablet all other days of the week).Needs more pills for dose modification prn; amiodarone 200 mg tablet 200 mg PO DAILY Qty: 90 3RF Primary Care Provider: Ian Hathaway Referrals: Ian Hathaway PA [Primary Care Provider] - 3-5 Days Disposition Disposition: Home, Self Care
[2022-07-12] MEDS: diazePAM 5 MG Tablet PO (05:31)
--- NOTE | 2022-07-12 06:12 | RAD_ITS ---
EXAM: XR CERVICAL SPINE, 4 OR 5 VIEWS CLINICAL INDICATION: pain TECHNIQUE: Frontal, lateral and bilateral oblique views of the cervical spine. This report was created using [employer] report [employer] technology. COMPARISON: None. FINDINGS: VERTEBRAE: Osseous structures are demineralized. Preserved vertebral body height. No acute fracture. Preservation of the normal cervical lordosis. Mid-cervical facet arthritis is present with slight anterior degenerative subluxation of C3 on C4. Alignment of C7 on T1 is anatomic as noted on the swimmer''s view. The odontoid is intact. No facet dislocation. There is an old avulsion fracture or ununited ossification center at the tip of the C7 spinous process. One lateral view suggests an old avulsion fracture at the tip of the C5 spinous process, but this is not confirmed on any of the views. DISC SPACES: Disc spaces are maintained. SOFT TISSUES: Unremarkable. No prevertebral soft tissue widening. LUNG APICES: Clear. Visualized upper ribs are intact. OTHER: Patient is edentulous. Visualized mandible is intact. Cardiac pacemaker is present. RAD/Cerv Spine 2 or 3 Views IMPRESSION: Cervical degenerative changes. No acute fracture identified. Electronically Signed: Guanakito Chanel MD at 6:53 EST ,
[2022-07-12] MEDS: predniSONE 20 MG Tablet 40 MG PO (07:09)
[2022-07-12 07:19] VITALS: BP 140/72; PULSE 60; RESP 16; TEMP 36.2; O2SAT 94
== END 2022-07-12 07:30 | disposition home or self-care (01) ==
PROVIDERS: Emergency Provider Emergency Medicine; PCP Physician Assistant; Visit Provider Emergency Medicine
DX: M43.6 Torticollis (principal); N18.30 Chronic kidney disease, stage 3 unspecified; S16.1XXA Strain of muscle, fascia and tendon at neck level, initial encounter; I25.2 Old myocardial infarction; Z87.891 Personal history of nicotine dependence; Z95.0 Presence of cardiac pacemaker; X58.XXXA Exposure to other specified factors, initial encounter
CPT/HCPCS: 72040; 99285

== ENCOUNTER 2022-08-06 09:29 | Outpatient (RCR) | payer MEDICARE, SELFPAY ==
[2022-07-21 08:18] VITALS: BMI 28.5
[2022-08-06 09:36] LABS: INR Fingerstick 2.4; Prothrombin Time Fingerstick 27.4 SEC (11.7-14.9)
== END 2022-08-06 18:00 | disposition home or self-care (01) ==
LOC: LAB 09:29
PROVIDERS: Family Provider Physician Assistant; PCP Physician Assistant; Referring Provider Internal Medicine Cardiovascular Disease; Visit Provider Internal Medicine Cardiovascular Disease
DX: I48.0 Paroxysmal atrial fibrillation (principal); Z79.01 Long term (current) use of anticoagulants
CPT/HCPCS: 36416; 85610

== ENCOUNTER 2022-09-06 09:47 | Outpatient (RCR) | payer MEDICARE, SELFPAY ==
[2022-08-17 23:02] VITALS: BMI 28.5
[2022-09-06 10:54] LABS: Hematocrit 39.3 % (40-54); Hemoglobin 12.3 g/dL (13.0-16.5); Mean Corp Hgb Conc 31.3 g/dL (32-36); Mean Corpuscular Hgb 30.5 pg (27.0-32.0); Mean Corpuscular Volume 97.5 fL (80-94); Mean Platelet Vol. 9.9 fl (6.2-12.0); Platelet Count 238 K/mm3 (150-450); RBC Distribution Width CV 14.4 % (11.6-14.6); RBC Distribution Width SD 51.2 fl (35.1-43.9); Red Blood Count 4.03 M/mm3 (4.6-6.2); White Blood Count 6.1 K/mm3 (4.4-11.0)
[2022-09-06 11:02] LABS: International Normalized Ratio 2.1; Prothrombin Time (Protime)PT. 23.3 SECONDS (11.7-14.9)
[2022-09-06 11:14] LABS: PTHIN 121.3 pg/mL (18.4-80.1)
[2022-09-06 11:28] LABS: AST(SGOT) 18 U/L (15-37); Alanine Aminotransfer ALT/SGPT 20 U/L (16-61); Alkaline Phosphatase 61 U/L (45-117); Anion Gap 6 (5-15); BUN 22 mg/dL (7-18); BUN/Creat Ratio 12.2 RATIO (10-20); Bilirubin, Direct 0.13 mg/dL (0.00-0.30); Calcium,Total 8.6 mg/dL (8.5-10.1); Chloride 112 mmol/L (98-107); Creatinine, Serum 1.81 mg/dL (0.70-1.30); EST Glomerular Filtration Rate 38 mL/min (>60); Est Glom Filt Rate - Afr Amer 46 mL/min (>60); Globulin 3.7 g/dL (2.2-4.2); Glucose 118 mg/dL (74-106); Phosphorus 2.2 mg/dL (2.5-4.9); Potassium 4.1 mmol/L (3.5-5.1); Protein, Total 6.7 g/dL (6.4-8.2); Sodium Level 143 mmol/L (136-145); Thyroid Stim Hormone (TSH) 2.85 uIU/mL (0.358-3.74)
== END 2022-09-17 23:00 | disposition home or self-care (01) ==
LOC: LAB 09:47
PROVIDERS: Physician Assistant Medical; Family Provider Physician Assistant; PCP Physician Assistant; Referring Provider Internal Medicine Cardiovascular Disease; Visit Provider Internal Medicine Cardiovascular Disease
DX: I48.0 Paroxysmal atrial fibrillation (principal); Z79.01 Long term (current) use of anticoagulants; I12.9 Hypertensive chronic kidney disease with stage 1 through stage 4 chronic kidney disease, or unspecified chronic kidney disease; Z95.0 Presence of cardiac pacemaker; Z79.899 Other long term (current) drug therapy; N18.4 Chronic kidney disease, stage 4 (severe); D63.1 Anemia in chronic kidney disease; N25.81 Secondary hyperparathyroidism of renal origin
CPT/HCPCS: 36415; 80048; 80076; 83970; 84100; 84443; 85027; 85610

== ENCOUNTER 2022-10-08 08:49 | Outpatient (RCR) | payer MEDICARE, SELFPAY ==
[2022-09-18 00:31] VITALS: BMI 28.5
[2022-10-08 09:00] LABS: INR Fingerstick 2.5; Prothrombin Time Fingerstick 27.1 SEC (11.7-14.9)
== END 2022-10-17 01:20 | disposition home or self-care (01) ==
LOC: LAB 08:49
PROVIDERS: Family Provider Physician Assistant; PCP Physician Assistant; Referring Provider Internal Medicine Cardiovascular Disease; Visit Provider Internal Medicine Cardiovascular Disease
DX: I48.0 Paroxysmal atrial fibrillation (principal); Z79.01 Long term (current) use of anticoagulants
CPT/HCPCS: 36416; 85610

== ENCOUNTER 2022-11-12 08:21 | Outpatient (RCR) | payer MEDICARE, SELFPAY ==
[2022-10-17 01:21] VITALS: BMI 28.5
[2022-11-12 08:28] LABS: INR Fingerstick 2.4; Prothrombin Time Fingerstick 25.6 SEC (11.7-14.9)
== END 2022-11-17 18:00 | disposition home or self-care (01) ==
LOC: LAB 08:21
PROVIDERS: Family Provider Physician Assistant; PCP Physician Assistant; Referring Provider Internal Medicine Cardiovascular Disease; Visit Provider Internal Medicine Cardiovascular Disease
DX: I48.0 Paroxysmal atrial fibrillation (principal); Z79.01 Long term (current) use of anticoagulants; I12.9 Hypertensive chronic kidney disease with stage 1 through stage 4 chronic kidney disease, or unspecified chronic kidney disease; N18.4 Chronic kidney disease, stage 4 (severe); D63.1 Anemia in chronic kidney disease; Z95.0 Presence of cardiac pacemaker; Z79.899 Other long term (current) drug therapy; N25.81 Secondary hyperparathyroidism of renal origin
CPT/HCPCS: 36416; 85610

== ENCOUNTER 2022-12-20 10:06 | Outpatient (RCR) | payer MEDICARE, SELFPAY ==
[2022-11-18 09:40] VITALS: BMI 28.5
[2022-12-20 10:15] LABS: INR Fingerstick 2.3; Prothrombin Time Fingerstick 24.6 SEC (11.7-14.9)
== END 2023-01-17 18:00 | disposition home or self-care (01) ==
LOC: LAB 10:06
PROVIDERS: Family Provider Physician Assistant; PCP Physician Assistant; Referring Provider Internal Medicine Cardiovascular Disease; Visit Provider Internal Medicine Cardiovascular Disease
DX: I48.0 Paroxysmal atrial fibrillation (principal); Z79.01 Long term (current) use of anticoagulants; I12.9 Hypertensive chronic kidney disease with stage 1 through stage 4 chronic kidney disease, or unspecified chronic kidney disease; N18.4 Chronic kidney disease, stage 4 (severe); D63.1 Anemia in chronic kidney disease; Z95.0 Presence of cardiac pacemaker; Z79.899 Other long term (current) drug therapy; N25.81 Secondary hyperparathyroidism of renal origin
CPT/HCPCS: 36416; 85610

== ENCOUNTER 2023-02-08 12:22 | Outpatient (RCR) | payer MEDICARE, SELFPAY ==
[2023-01-18 00:43] VITALS: BMI 28.5
[2023-01-25 10:46] LABS: INR Fingerstick 1.6; Prothrombin Time Fingerstick 17.4 SEC (11.7-14.9)
[2023-02-08 13:37] LABS: Hematocrit 37.5 % (40-54); Hemoglobin 11.9 g/dL (13.0-16.5); Mean Corp Hgb Conc 31.7 g/dL (32-36); Mean Corpuscular Hgb 32.3 pg (27.0-32.0); Mean Corpuscular Volume 101.9 fL (80-94); Mean Platelet Vol. 10.2 fl (6.2-12.0); Platelet Count 193 K/mm3 (150-450); RBC Distribution Width CV 13.4 % (11.6-14.6); RBC Distribution Width SD 50.6 fl (35.1-43.9); Red Blood Count 3.68 M/mm3 (4.6-6.2); White Blood Count 7.2 K/mm3 (4.4-11.0)
[2023-02-08 13:47] LABS: International Normalized Ratio 2.7; Prothrombin Time (Protime)PT. 29.3 SECONDS (11.7-14.9)
[2023-02-08 13:55] LABS: Albumin, Serum 3.4 g/dL (3.2-5.0); BUN 40 mg/dL (7-18); BUN/Creat Ratio 14.5 RATIO (10-20); Calcium,Total 8.7 mg/dL (8.5-10.1); Chloride 108 mmol/L (98-107); Creatinine, Serum 2.76 mg/dL (0.70-1.30); EST Glomerular Filtration Rate 23 mL/min (>60); Est Glom Filt Rate - Afr Amer 28 mL/min (>60); Glucose 110 mg/dL (74-106); Potassium 5.1 mmol/L (3.5-5.1); Sodium Level 139 mmol/L (136-145)
[2023-02-08 13:58] LABS: PTHIN 157.3 pg/mL (18.4-80.1)
== END 2023-02-08 18:00 | disposition home or self-care (01) ==
LOC: LAB 12:22
PROVIDERS: Family Provider Physician Assistant; PCP Physician Assistant; Referring Provider Internal Medicine Cardiovascular Disease; Visit Provider Internal Medicine Cardiovascular Disease
DX: I48.0 Paroxysmal atrial fibrillation (principal); Z79.01 Long term (current) use of anticoagulants; N18.4 Chronic kidney disease, stage 4 (severe)
CPT/HCPCS: 36415; 36416; 80069; 83970; 85027; 85610

== ENCOUNTER → 2023-02-17 | Outpatient (CLI) | payer MEDICARE, SELFPAY ==
[2023-02-17 13:07] LABS: Anion Gap 5 (5-15); BUN 33 mg/dL (7-18); BUN/Creat Ratio 13.5 RATIO (10-20); Calcium,Total 9.3 mg/dL (8.5-10.1); Chloride 108 mmol/L (98-107); Creatinine, Serum 2.45 mg/dL (0.70-1.30); EST Glomerular Filtration Rate 27 mL/min (>60); Est Glom Filt Rate - Afr Amer 32 mL/min (>60); Glucose 108 mg/dL (74-106); Potassium 5.1 mmol/L (3.5-5.1); Sodium Level 137 mmol/L (136-145)
== END | disposition home or self-care (01) ==
LOC: POLAB3 10:56
PROVIDERS: PCP Physician Assistant; Visit Provider Internal Medicine Nephrology
DX: N17.9 Acute kidney failure, unspecified (principal)
CPT/HCPCS: 36415; 80048

== ENCOUNTER 2023-03-18 12:20 | Outpatient (RCR) | payer MEDICARE, SELFPAY ==
[2023-02-17 22:55] VITALS: BMI 28.5
[2023-03-18 12:40] LABS: INR Fingerstick 2.5
== END 2023-03-18 18:00 | disposition home or self-care (01) ==
LOC: LAB 12:20
PROVIDERS: Family Provider Physician Assistant; PCP Physician Assistant; Referring Provider Internal Medicine Cardiovascular Disease; Visit Provider Internal Medicine Cardiovascular Disease
DX: I48.0 Paroxysmal atrial fibrillation (principal); Z79.01 Long term (current) use of anticoagulants; I12.9 Hypertensive chronic kidney disease with stage 1 through stage 4 chronic kidney disease, or unspecified chronic kidney disease
CPT/HCPCS: 36416; 85610

== ENCOUNTER 2023-04-22 11:45 | Outpatient (RCR) | payer MEDICARE, SELFPAY ==
[2023-03-20 02:46] VITALS: BMI 28.5
[2023-04-22 11:51] LABS: INR Fingerstick 2.6
== END 2023-05-19 18:00 | disposition home or self-care (01) ==
LOC: LAB 11:45
PROVIDERS: Family Provider Physician Assistant; PCP Physician Assistant; Referring Provider Internal Medicine Cardiovascular Disease; Visit Provider Internal Medicine Cardiovascular Disease
DX: I48.0 Paroxysmal atrial fibrillation (principal); Z79.01 Long term (current) use of anticoagulants; N18.4 Chronic kidney disease, stage 4 (severe); N25.81 Secondary hyperparathyroidism of renal origin
CPT/HCPCS: 36416; 85610

== ENCOUNTER 2023-05-26 11:55 | Outpatient (RCR) | payer MEDICARE, SELFPAY ==
[2023-05-20 03:17] VITALS: BMI 28.5
[2023-05-26 12:11] LABS: INR Fingerstick 2.8; Prothrombin Time Fingerstick 29.8 SEC (11.7-14.9)
== END 2023-06-19 18:00 | disposition home or self-care (01) ==
LOC: LAB 11:55
PROVIDERS: Family Provider Physician Assistant; PCP Physician Assistant; Referring Provider Internal Medicine Cardiovascular Disease; Visit Provider Internal Medicine Cardiovascular Disease
DX: N25.81 Secondary hyperparathyroidism of renal origin; N18.4 Chronic kidney disease, stage 4 (severe)
CPT/HCPCS: 36416; 85610

== ENCOUNTER → 2023-06-02 | Outpatient (CLI) | payer MEDICARE, SELFPAY ==
[2023-06-02 11:56] LABS: Albumin, Serum 3.1 g/dL (3.2-5.0); BUN 29 mg/dL (7-18); BUN/Creat Ratio 11.9 RATIO (10-20); Calcium,Total 8.5 mg/dL (8.5-10.1); Chloride 114 mmol/L (98-107); Creatinine, Serum 2.43 mg/dL (0.70-1.30); EST Glomerular Filtration Rate 27 mL/min (>60); Est Glom Filt Rate - Afr Amer 33 mL/min (>60); Glucose 109 mg/dL (74-106); Phosphorus 2.6 mg/dL (2.5-4.9); Potassium 4.8 mmol/L (3.5-5.1); Sodium Level 142 mmol/L (136-145)
[2023-06-02 12:06] LABS: PTHIN 160.6 pg/mL (18.4-80.1)
== END | disposition home or self-care (01) ==
LOC: LAB 10:53
PROVIDERS: PCP Physician Assistant; Referring Provider Internal Medicine Nephrology; Visit Provider Internal Medicine Nephrology
DX: N18.4 Chronic kidney disease, stage 4 (severe) (principal)
CPT/HCPCS: 36415; 80069; 83970

== ENCOUNTER 2023-07-15 10:06 | Outpatient (RCR) | payer MEDICARE, SELFPAY ==
[2023-06-19 20:52] VITALS: BMI 28.5
[2023-06-30 11:28] LABS: INR Fingerstick 1.6; Prothrombin Time Fingerstick 17.4 SEC (11.7-14.9)
[2023-07-15 10:18] LABS: Prothrombin Time Fingerstick 21.1 SEC (11.7-14.9)
== END 2023-07-15 18:00 | disposition home or self-care (01) ==
LOC: LAB 10:06
PROVIDERS: Family Provider Physician Assistant; PCP Physician Assistant; Referring Provider Internal Medicine Cardiovascular Disease; Visit Provider Internal Medicine Cardiovascular Disease
DX: N25.81 Secondary hyperparathyroidism of renal origin (principal); N18.4 Chronic kidney disease, stage 4 (severe); I48.0 Paroxysmal atrial fibrillation; Z79.01 Long term (current) use of anticoagulants
CPT/HCPCS: 36416; 85610

== ENCOUNTER 2023-08-04 11:16 | Outpatient (RCR) | payer MEDICARE, SELFPAY ==
[2023-07-20 22:39] VITALS: BMI 28.5
[2023-08-05 11:02] LABS: INR Fingerstick 1.5; Prothrombin Time Fingerstick 16.1 SEC (11.7-14.9)
== END 2023-08-18 18:00 | disposition home or self-care (01) ==
LOC: LAB 11:16
PROVIDERS: Family Provider Physician Assistant; PCP Physician Assistant; Referring Provider Internal Medicine Cardiovascular Disease; Visit Provider Internal Medicine Cardiovascular Disease
DX: I48.0 Paroxysmal atrial fibrillation; Z79.01 Long term (current) use of anticoagulants
CPT/HCPCS: 36415; 36416; 85610

== ENCOUNTER 2023-09-14 09:14 | Outpatient (RCR) | payer MEDICARE, SELFPAY ==
[2023-08-18 23:07] VITALS: BMI 28.5
[2023-08-19 09:44] LABS: INR Fingerstick 5.9; Prothrombin Time Fingerstick 54.9 SEC (11.7-14.9)
[2023-08-22 09:48] LABS: INR Fingerstick 1.6; Prothrombin Time Fingerstick 17.6 SEC (11.7-14.9)
[2023-09-06 10:26] LABS: INR Fingerstick 1.5; Prothrombin Time Fingerstick 16.8 SEC (11.7-14.9)
[2023-09-14 09:32] LABS: INR Fingerstick 1.7; Prothrombin Time Fingerstick 18.7 SEC (11.7-14.9)
== END 2023-09-17 18:00 | disposition home or self-care (01) ==
LOC: LAB 09:14
PROVIDERS: Family Provider Physician Assistant; PCP Physician Assistant; Referring Provider Internal Medicine Cardiovascular Disease; Visit Provider Internal Medicine Cardiovascular Disease
DX: I48.0 Paroxysmal atrial fibrillation (principal); Z79.01 Long term (current) use of anticoagulants
CPT/HCPCS: 36416; 85610

== ENCOUNTER 2023-09-30 09:13 | Outpatient (RCR) | payer MEDICARE, SELFPAY ==
[2023-09-17 22:34] VITALS: BMI 28.5
[2023-09-30 09:22] LABS: INR Fingerstick 2.4; Prothrombin Time Fingerstick 24.6 SEC (11.7-14.9)
== END 2023-10-18 23:09 | disposition home or self-care (01) ==
LOC: LAB 09:13
PROVIDERS: Family Provider Physician Assistant; PCP Physician Assistant; Referring Provider Internal Medicine Cardiovascular Disease; Visit Provider Internal Medicine Cardiovascular Disease
DX: I48.0 Paroxysmal atrial fibrillation (principal); Z79.01 Long term (current) use of anticoagulants; N18.4 Chronic kidney disease, stage 4 (severe); N25.81 Secondary hyperparathyroidism of renal origin
CPT/HCPCS: 36416; 85610

== ENCOUNTER 2023-10-26 10:38 | Outpatient (RCR) | payer MEDICARE, SELFPAY ==
[2023-10-18 23:09] VITALS: BMI 28.5
[2023-10-26 11:44] LABS: International Normalized Ratio 2.7; Prothrombin Time (Protime)PT. 28.4 SECONDS (11.7-14.9)
[2023-10-26 12:15] LABS: Albumin, Serum 3.5 g/dL (3.2-5.0); BUN 40 mg/dL (7-18); Calcium,Total 9.1 mg/dL (8.5-10.1); Chloride 107 mmol/L (98-107); Creatinine, Serum 2.86 mg/dL (0.70-1.30); EST Glomerular Filtration Rate 22 mL/min (>60); Est Glom Filt Rate - Afr Amer 27 mL/min (>60); Glucose 121 mg/dL (74-106); Phosphorus 3.2 mg/dL (2.5-4.9); Potassium 5.2 mmol/L (3.5-5.1); Sodium Level 139 mmol/L (136-145)
== END 2023-10-26 18:00 | disposition home or self-care (01) ==
LOC: LAB 10:38
PROVIDERS: Family Provider Physician Assistant; PCP Physician Assistant; Referring Provider Internal Medicine Cardiovascular Disease; Visit Provider Internal Medicine Cardiovascular Disease
DX: I48.0 Paroxysmal atrial fibrillation (principal); Z79.01 Long term (current) use of anticoagulants
CPT/HCPCS: 36415; 80069; 85610

== ENCOUNTER → 2023-11-02 | Outpatient (CLI) | payer MEDICARE, SELFPAY ==
[2023-11-02 11:54] LABS: Anion Gap 4 (5-15); BUN 41 mg/dL (7-18); BUN/Creat Ratio 13.7 RATIO (10-20); Calcium,Total 9.1 mg/dL (8.5-10.1); Chloride 108 mmol/L (98-107); EST Glomerular Filtration Rate 21 mL/min (>60); Est Glom Filt Rate - Afr Amer 26 mL/min (>60); Glucose 146 mg/dL (74-106); Potassium 4.8 mmol/L (3.5-5.1); Sodium Level 139 mmol/L (136-145)
== END | disposition home or self-care (01) ==
LOC: LAB 10:59
PROVIDERS: PCP Physician Assistant; Referring Provider Physician Assistant Medical; Visit Provider Physician Assistant Medical
DX: E87.5 Hyperkalemia (principal); N18.30 Chronic kidney disease, stage 3 unspecified
CPT/HCPCS: 36415; 80048

== ENCOUNTER 2023-12-01 10:57 | Outpatient (RCR) | payer MEDICARE, SELFPAY ==
[2023-11-21 09:38] VITALS: BMI 28.5
[2023-12-01 11:11] LABS: INR Fingerstick 2.7; Prothrombin Time Fingerstick 27.4 SEC (11.7-14.9)
== END 2023-12-01 18:00 | disposition home or self-care (01) ==
LOC: LAB 10:57
PROVIDERS: Family Provider Physician Assistant; PCP Physician Assistant; Referring Provider Internal Medicine Cardiovascular Disease; Visit Provider Internal Medicine Cardiovascular Disease
DX: I48.0 Paroxysmal atrial fibrillation (principal); Z79.01 Long term (current) use of anticoagulants
CPT/HCPCS: 36416; 85610

== ENCOUNTER 2024-01-16 11:43 | Outpatient (RCR) | payer MEDICARE, SELFPAY ==
[2023-12-18 22:42] VITALS: BMI 28.5
[2024-01-02 13:07] LABS: Absolute Lymphocyte Count 1.91 X10^3/uL (0.83-4.51); Absolute Neutrophil Count 3.5 X10^3/uL (2.0-7.7); Basophil# 0.06 X10^3/uL; Basophil% 0.9 % (0-1); Eosinophil# 0.35 X10^3/uL; Eosinophils% 5.5 % (0-5); Hematocrit 35.3 % (40-54); Hemoglobin 11.2 g/dL (13.0-16.5); Lymphocyte # 1.91 X10^3/ul (0.83-4.51); Lymphocyte % 29.8 % (19-41); Mean Corp Hgb Conc 31.7 g/dL (32-36); Mean Corpuscular Hgb 31.3 pg (27.0-32.0); Mean Corpuscular Volume 98.6 fL (80-94); Mean Platelet Vol. 10.5 fl (6.2-12.0); Monocyte# 0.46 X10^3/uL; Monocyte% 7.2 % (0-10); NRBC Flagged by Analyzer 0 % (0-5); Neutrophil # 3.54 X10^3/uL (2.7-7.7); Platelet Count 196 K/mm3 (150-450); RBC Distribution Width CV 13.8 % (11.6-14.6); RBC Distribution Width SD 49.8 fl (35.1-43.9); Red Blood Count 3.58 M/mm3 (4.6-6.2); White Blood Count 6.4 K/mm3 (4.4-11.0)
[2024-01-02 13:08] LABS: International Normalized Ratio 3.3; Prothrombin Time (Protime)PT. 33.3 SECONDS (11.7-14.9)
[2024-01-02 14:01] LABS: AST(SGOT) 21 U/L (15-37); Alanine Aminotransfer ALT/SGPT 25 U/L (16-61); Albumin, Serum 3.3 g/dL (3.2-5.0); Alkaline Phosphatase 52 U/L (45-117); Anion Gap 5 (5-15); BUN 31 mg/dL (7-18); BUN/Creat Ratio 12.6 RATIO (10-20); Calcium,Total 8.8 mg/dL (8.5-10.1); Chloride 108 mmol/L (98-107); Creatinine, Serum 2.47 mg/dL (0.70-1.30); EST Glomerular Filtration Rate 26 mL/min (>60); Est Glom Filt Rate - Afr Amer 32 mL/min (>60); Globulin 3.3 g/dL (2.2-4.2); Glucose 119 mg/dL (74-106); Potassium 4.6 mmol/L (3.5-5.1); Protein, Total 6.6 g/dL (6.4-8.2); Sodium Level 140 mmol/L (136-145); Thyroid Stim Hormone (TSH) 1.97 uIU/mL (0.358-3.74)
[2024-01-16 12:07] LABS: INR Fingerstick 3.1; Prothrombin Time Fingerstick 31.3 SEC (11.7-14.9)
== END 2024-01-18 18:00 | disposition home or self-care (01) ==
LOC: LAB 11:43
PROVIDERS: Physician Assistant Medical; Family Provider Physician Assistant; PCP Physician Assistant; Referring Provider Internal Medicine Cardiovascular Disease; Visit Provider Internal Medicine Cardiovascular Disease
DX: I48.0 Paroxysmal atrial fibrillation (principal); Z79.01 Long term (current) use of anticoagulants; Z95.0 Presence of cardiac pacemaker; I10 Essential (primary) hypertension; Z79.899 Other long term (current) drug therapy
CPT/HCPCS: 36415; 36416; 80053; 84443; 85025; 85610

== ENCOUNTER 2024-01-23 19:55 | Emergency (ER) | payer MEDICARE, SELFPAY ==
[2024-01-23] VITALS (7 sets, daily range): BP systolic 117–127; BP diastolic 58–108; PULSE 60–69; RESP 18–26; TEMP 36.3–36.7; O2SAT 90–97; BMI 28.0
--- NOTE | 2024-01-23 20:11 | EKG12_ITS ---
Test Reason : DYSRHYTHMIA Blood Pressure : / mmHG Vent. Rate : 060 BPM Atrial Rate : 060 BPM P-R Int : 198 ms QRS Dur : 196 ms QT Int : 574 ms P-R-T Axes : 000 -61 108 degrees QTc Int : 574 ms AV dual-paced rhythm Abnormal ECG When compared with ECG of 26-JAN-2017 05:50, Electronic ventricular pacemaker has replaced Sinus rhythm Vent. rate has increased BY 22 BPM Confirmed by Isaiah Barton ([id number]), supervising film or videotape editor LAZARA VUONG ([id number]) on 01/26/2024 9:15:20 AM Referred By: Confirmed By:Isaiah Barton
--- NOTE | 2024-01-23 20:11 | CT_ITS ---
EXAM: CT HEAD AND CERVICAL SPINE WITHOUT INTRAVENOUS CONTRAST CLINICAL INDICATION: fall, AMS TECHNIQUE: Helically acquired images were obtained of the head/brain and cervical spine without intravenous contrast. 2D reformatted images were reviewed. This CT exam was performed using one or more of the following dose reduction techniques: automated exposure control, adjustment of the mA and/or kV according to patient size, and/or use of iterative reconstruction technique. COMPARISON: CT chest and thoracic spine on the same date. FINDINGS: BRAIN AND EXTRA-AXIAL SPACES: There is non-specific periventricular hypoattenuation which is most commonly related to chronic microvascular ischemic disease in a patient of this age. There is no mass, mass-effect, or shift of the midline structures. No evidence of acute infarct or acute intracranial hemorrhage. There is no evidence of pathologic extra-axial fluid. There is no hydrocephalus. Patent basal cisterns. Posterior fossa structures are unremarkable. SKULL: No significant abnormality. No discrete lytic or blastic abnormalities. SINUSES: Mild mucosal thickening in the paranasal sinuses. MASTOID AIR CELLS: No significant abnormality. Clear. ORBITS: Bilateral ocular lens extraction presumptively for the treatment of cataracts. Otherwise, no acute orbital pathology. DENTAL: The patient is edentulous. VERTEBRAE: Multilevel facet, uncovertebral joint, and endplate osteophytosis. No fracture. No traumatic subluxation. No discrete lytic or blastic abnormality. Normal alignment. Normal craniocervical junction and cervicothoracic junction. DISCS/SPINAL CANAL/NEURAL FORAMINA: Mild to moderate multilevel spinal canal stenosis. Multilevel intervertebral disc height loss. Mild to moderate multilevel neural foraminal narrowing. SOFT TISSUES: High parietal scalp soft tissue swelling. No prevertebral soft tissue swelling. VASCULATURE: Arteriosclerosis. Vascular calcifications in the neck. LYMPH NODES: No significant abnormality. No cervical adenopathy. LUNG APICES: Normal as visualized. Clear. OTHER FINDINGS: Mild bilateral TMJ arthrosis. CT/Spine Cervical without Contras IMPRESSION: 1. High parietal scalp soft tissue swelling. No CT evidence of acute intracranial pathology. Chronic microvascular ischemic changes. 2. Diffuse sinonasal mucosal thickening. Correlate for associated symptoms. 3. Degenerative changes in the cervical spine. No evidence of acute osseous abnormalities in the spine. Electronically Signed: Thomas Haji DO at 21:31 EDT ,
--- NOTE | 2024-01-23 20:11 | CT_ITS ---
EXAM: CT CHEST, ABDOMEN, PELVIS, THORACIC SPINE AND LUMBAR SPINE WITHOUT INTRAVENOUS CONTRAST CLINICAL INDICATION: fall, chest, abdomen/pelvis trauma pain. TECHNIQUE: Helically acquired images were obtained of the chest, abdomen, pelvis, thoracic spine and lumbar spine without intravenous contrast. This CT exam was performed using one or more of the following dose reduction techniques: automated exposure control, adjustment of the mA and/or kV according to patient size, and/or use of iterative reconstruction technique. COMPARISON: Chest radiograph, 01/08/2022. FINDINGS: LIMITATIONS: The examination is limited due to motion related artifacts. CHEST: LUNGS AND PLEURAL SPACES: Small left and medium to large right pleural effusion with associated dependent airspace disease which is likely atelectasis rather than pneumonia. No mass. HEART: Coronary artery calcifications and/or stents. No pericardial effusion or significant cardiomegaly. MEDIASTINUM: Large hiatal hernia. No mediastinal or hilar adenopathy. Esophagus is unremarkable. THYROID: No significant abnormality. No thyroid lesions. ABDOMEN: LIVER: No significant abnormality. Homogeneous. GALLBLADDER AND BILE DUCTS: No significant abnormality. No calcified gallstones. No gallbladder distention or wall edema. No intra- or extrahepatic biliary ductal dilation. PANCREAS: No significant abnormality. No focal cystic mass. SPLEEN: No significant abnormality. Normal size without focal cystic or solid mass. ADRENALS: No significant abnormality. No nodules. KIDNEYS AND URETERS: No significant abnormality. Normal renal size and position. No hydronephrosis. STOMACH AND BOWEL: No significant abnormality. No stomach or bowel distention. No focal inflammatory change. PELVIS: APPENDIX: No evidence of acute appendicitis. BLADDER: Mancera catheter present. REPRODUCTIVE: Normal as visualized. No mass. THORACIC and LUMBAR SPINE: VERTEBRAE: Multilevel facet arthrosis and endplate osteophytosis. Prominent endplate sclerosis at L4-L5. Multiple Schmorl''s nodes are present throughout the thoracic and lumbar spine. No spondylolysis or spondylolisthesis. DISCS/SPINAL CANAL/NEURAL FORAMINA: Multiple prominent disc bulges and/or herniations in the lumbar spine present, worst at L4-L5 resulting in at least moderate spinal canal stenosis. Multilevel intervertebral disc height loss. L4-L5 and L5-S1 vacuum disc phenomenon. CHEST, ABDOMEN and PELVIS: INTRAPERITONEAL SPACE: No significant abnormality. No ascites or other fluid collection. No free air. BONES/JOINTS: Right posterior 10th rib fracture and nondisplaced right posterior 11th rib fracture. Degenerative changes in the bilateral shoulders, pelvis, and hips. SOFT TISSUES: Edema overlying the right greater than left hips within the superficial soft tissues. No discrete abdominal or pelvic wall hernia. VASCULATURE: Atherosclerosis of the aorta and its branch vessels. Aorta is non-dilated. LYMPH NODES: No significant abnormality. No enlarged lymph nodes. TUBES, LINES AND DEVICES: Left-sided cardiac device. CT/Spine Thoracic without Contras IMPRESSION: 1. Small left and medium to large right pleural effusion with associated dependent airspace disease which is likely atelectasis rather than pneumonia. 2. Right posterior 10th rib fracture and nondisplaced right posterior 11th rib fracture. No evidence of acute spinal fracture. Multilevel degenerative changes in the thoracic and lumbar spine. 3. Edema overlying the right greater than left hips within the superficial soft tissues. Correlate for contusion/hematoma. 4. Large hiatal hernia. No acute visceral pathology is otherwise identified in the chest, abdomen, or pelvis. Electronically Signed: Thomas Haji DO at 21:31 EDT ,
--- NOTE | 2024-01-23 20:11 | CT_ITS ---
EXAM: CT CHEST, ABDOMEN, PELVIS, THORACIC SPINE AND LUMBAR SPINE WITHOUT INTRAVENOUS CONTRAST CLINICAL INDICATION: fall, chest, abdomen/pelvis trauma pain. TECHNIQUE: Helically acquired images were obtained of the chest, abdomen, pelvis, thoracic spine and lumbar spine without intravenous contrast. This CT exam was performed using one or more of the following dose reduction techniques: automated exposure control, adjustment of the mA and/or kV according to patient size, and/or use of iterative reconstruction technique. COMPARISON: Chest radiograph, 01/08/2022. FINDINGS: LIMITATIONS: The examination is limited due to motion related artifacts. CHEST: LUNGS AND PLEURAL SPACES: Small left and medium to large right pleural effusion with associated dependent airspace disease which is likely atelectasis rather than pneumonia. No mass. HEART: Coronary artery calcifications and/or stents. No pericardial effusion or significant cardiomegaly. MEDIASTINUM: Large hiatal hernia. No mediastinal or hilar adenopathy. Esophagus is unremarkable. THYROID: No significant abnormality. No thyroid lesions. ABDOMEN: LIVER: No significant abnormality. Homogeneous. GALLBLADDER AND BILE DUCTS: No significant abnormality. No calcified gallstones. No gallbladder distention or wall edema. No intra- or extrahepatic biliary ductal dilation. PANCREAS: No significant abnormality. No focal cystic mass. SPLEEN: No significant abnormality. Normal size without focal cystic or solid mass. ADRENALS: No significant abnormality. No nodules. KIDNEYS AND URETERS: No significant abnormality. Normal renal size and position. No hydronephrosis. STOMACH AND BOWEL: No significant abnormality. No stomach or bowel distention. No focal inflammatory change. PELVIS: APPENDIX: No evidence of acute appendicitis. BLADDER: Mancera catheter present. REPRODUCTIVE: Normal as visualized. No mass. THORACIC and LUMBAR SPINE: VERTEBRAE: Multilevel facet arthrosis and endplate osteophytosis. Prominent endplate sclerosis at L4-L5. Multiple Schmorl''s nodes are present throughout the thoracic and lumbar spine. No spondylolysis or spondylolisthesis. DISCS/SPINAL CANAL/NEURAL FORAMINA: Multiple prominent disc bulges and/or herniations in the lumbar spine present, worst at L4-L5 resulting in at least moderate spinal canal stenosis. Multilevel intervertebral disc height loss. L4-L5 and L5-S1 vacuum disc phenomenon. CHEST, ABDOMEN and PELVIS: INTRAPERITONEAL SPACE: No significant abnormality. No ascites or other fluid collection. No free air. BONES/JOINTS: Right posterior 10th rib fracture and nondisplaced right posterior 11th rib fracture. Degenerative changes in the bilateral shoulders, pelvis, and hips. SOFT TISSUES: Edema overlying the right greater than left hips within the superficial soft tissues. No discrete abdominal or pelvic wall hernia. VASCULATURE: Atherosclerosis of the aorta and its branch vessels. Aorta is non-dilated. LYMPH NODES: No significant abnormality. No enlarged lymph nodes. TUBES, LINES AND DEVICES: Left-sided cardiac device. CT/CT Chest, Abd, Pelvis WO Cont IMPRESSION: 1. Small left and medium to large right pleural effusion with associated dependent airspace disease which is likely atelectasis rather than pneumonia. 2. Right posterior 10th rib fracture and nondisplaced right posterior 11th rib fracture. No evidence of acute spinal fracture. Multilevel degenerative changes in the thoracic and lumbar spine. 3. Edema overlying the right greater than left hips within the superficial soft tissues. Correlate for contusion/hematoma. 4. Large hiatal hernia. No acute visceral pathology is otherwise identified in the chest, abdomen, or pelvis. Electronically Signed: Thomas Haji DO at 21:27 EDT ,
--- NOTE | 2024-01-23 20:11 | CT_ITS ---
EXAM: CT HEAD AND CERVICAL SPINE WITHOUT INTRAVENOUS CONTRAST CLINICAL INDICATION: fall, AMS TECHNIQUE: Helically acquired images were obtained of the head/brain and cervical spine without intravenous contrast. 2D reformatted images were reviewed. This CT exam was performed using one or more of the following dose reduction techniques: automated exposure control, adjustment of the mA and/or kV according to patient size, and/or use of iterative reconstruction technique. COMPARISON: CT chest and thoracic spine on the same date. FINDINGS: BRAIN AND EXTRA-AXIAL SPACES: There is non-specific periventricular hypoattenuation which is most commonly related to chronic microvascular ischemic disease in a patient of this age. There is no mass, mass-effect, or shift of the midline structures. No evidence of acute infarct or acute intracranial hemorrhage. There is no evidence of pathologic extra-axial fluid. There is no hydrocephalus. Patent basal cisterns. Posterior fossa structures are unremarkable. SKULL: No significant abnormality. No discrete lytic or blastic abnormalities. SINUSES: Mild mucosal thickening in the paranasal sinuses. MASTOID AIR CELLS: No significant abnormality. Clear. ORBITS: Bilateral ocular lens extraction presumptively for the treatment of cataracts. Otherwise, no acute orbital pathology. DENTAL: The patient is edentulous. VERTEBRAE: Multilevel facet, uncovertebral joint, and endplate osteophytosis. No fracture. No traumatic subluxation. No discrete lytic or blastic abnormality. Normal alignment. Normal craniocervical junction and cervicothoracic junction. DISCS/SPINAL CANAL/NEURAL FORAMINA: Mild to moderate multilevel spinal canal stenosis. Multilevel intervertebral disc height loss. Mild to moderate multilevel neural foraminal narrowing. SOFT TISSUES: High parietal scalp soft tissue swelling. No prevertebral soft tissue swelling. VASCULATURE: Arteriosclerosis. Vascular calcifications in the neck. LYMPH NODES: No significant abnormality. No cervical adenopathy. LUNG APICES: Normal as visualized. Clear. OTHER FINDINGS: Mild bilateral TMJ arthrosis. CT/Brain/Head without Contrast IMPRESSION: 1. High parietal scalp soft tissue swelling. No CT evidence of acute intracranial pathology. Chronic microvascular ischemic changes. 2. Diffuse sinonasal mucosal thickening. Correlate for associated symptoms. 3. Degenerative changes in the cervical spine. No evidence of acute osseous abnormalities in the spine. Electronically Signed: Thomas Haji DO at 21:30 EDT ,
[2024-01-23] MEDS: Ondansetron 4 MG/2 ML Vial IV (20:29)
[2024-01-23] MEDS: 0.9% Normal Saline (500mL Bag) 500 ML 1000 ML IV (20:29)
[2024-01-23 20:32] LABS: Hematocrit 30.9 % (40-54); Hemoglobin 9.9 g/dL (13.0-16.5); Mean Corpuscular Hgb 31.6 pg (27.0-32.0); Mean Corpuscular Volume 98.7 fL (80-94); Mean Platelet Vol. 10.7 fl (6.2-12.0); Platelet Count 177 K/mm3 (150-450); RBC Distribution Width CV 13.7 % (11.6-14.6); RBC Distribution Width SD 48.4 fl (35.1-43.9); Red Blood Count 3.13 M/mm3 (4.6-6.2); White Blood Count 12.7 K/mm3 (4.4-11.0)
[2024-01-23 20:46] LABS: White Blood Cells 0 SEEN /hpf (0-5)
[2024-01-23 20:48] LABS: Bacteria 0 SEEN /hpf (None Seen); Mucous, Urine 0 SEEN /hpf (<or=2+)
[2024-01-23 20:48] LABS: Alcohol, Blood (Medical)-Serum < 3.0 mg/dL
--- NOTE | 2024-01-23 20:50 | RAD_ITS ---
EXAM: XR LEFT KNEE, 1 OR 2 VIEWS CLINICAL INDICATION: pain after fall TECHNIQUE: Frontal and/or lateral views of the left knee. COMPARISON: No relevant prior studies available. FINDINGS: BONES/JOINTS: Patellar enthesopathy. No acute fracture. No subluxation. Normal alignment. Preservation of the joint space. No sclerotic or destructive changes observed. SOFT TISSUES: No significant abnormality. No soft tissue swelling or gas. No radiopaque foreign body. VASCULATURE: Vascular calcifications. RAD/Knee 1 or 2 Views IMPRESSION: No radiographic evidence of acute osseous abnormality. Electronically Signed: Thomas Haji DO at 21:33 EDT ,
--- NOTE | 2024-01-23 20:50 | RAD_ITS ---
EXAM: XR RIGHT ELBOW COMPLETE, 3 OR MORE VIEWS CLINICAL INDICATION: pain after fall TECHNIQUE: Frontal, lateral and oblique views of the right elbow. COMPARISON: No relevant prior studies available. FINDINGS: BONES/JOINTS: Olecranon enthesophyte. Spurring of the coronoid process. There is no displacement of the anterior or posterior fat pads. No acute fracture. No subluxation. Normal alignment. Preservation of the joint space. No destructive or sclerotic lesions. SOFT TISSUES: Mild soft tissue swelling. No radiopaque foreign body. RAD/Elbow min 3 Views IMPRESSION: Mild soft tissue swelling. Degenerative changes. No acute osseous findings. Electronically Signed: Thomas Haji DO at 21:32 EDT ,
--- NOTE | 2024-01-23 20:50 | RAD_ITS ---
EXAM: XR LEFT ELBOW COMPLETE, 3 OR MORE VIEWS CLINICAL INDICATION: pain after fall TECHNIQUE: Frontal, lateral and oblique views of the left elbow. COMPARISON: No relevant prior studies available. FINDINGS: BONES/JOINTS: Olecranon enthesophyte. There is no displacement of the anterior or posterior fat pads. No acute fracture. No subluxation. Normal alignment. Preservation of the joint space. No destructive or sclerotic lesions. SOFT TISSUES: Mild soft tissue swelling. No radiopaque foreign body. RAD/Elbow min 3 Views IMPRESSION: Mild soft tissue swelling. No acute osseous findings. Electronically Signed: Thomas Haji DO at 21:32 EDT ,
[2024-01-23 20:53] LABS: Color, Urine Yellow (Yellow); Glucose, Dipstick Normal (Normal); Ketone-Dipstick 5 mg/dl (Negative); Leukocyte Esterase-Dipstick Negative /ul (Negative); Nitrite-Dipstick Negative (Negative); Occult Blood-Urine 150 /ul (Negative); Protein-Dipstick 30 mg/dl (Negative); Specific Gravity, Urine 1.015 (1.002-1.030); Urine Bilirubin Dipstick Negative (Negative); Urine Urobilinogen 1 mg/dl (Normal)
[2024-01-23 21:07] LABS: Red Blood Cells-Urine 10-25 SEEN /hpf (0-5); Squamous Epithelial Cells - UA 0-5 SEEN /hpf (0-5); Urine Clarity Sl Cldy (Clear)
[2024-01-23 21:20] LABS: ALB/GLOB Ratio 0.8 RATIO (0.9-2.4); AST(SGOT) 177 U/L (15-37); Alanine Aminotransfer ALT/SGPT 68 U/L (16-61); Albumin, Serum 2.9 g/dL (3.2-5.0); Alkaline Phosphatase 44 U/L (45-117); Anion Gap 12 (5-15); BUN 51 mg/dL (7-18); BUN/Creat Ratio 20.1 RATIO (10-20); Calcium,Total 8.5 mg/dL (8.5-10.1); Chloride 115 mmol/L (98-107); Creatinine, Serum 2.54 mg/dL (0.70-1.30); EST Glomerular Filtration Rate 26 mL/min (>60); Est Glom Filt Rate - Afr Amer 31 mL/min (>60); Estimated Creatinine Clearance 25.47 ml/min; Globulin 3.5 g/dL (2.2-4.2); Glucose 140 mg/dL (74-106); Lipase 16 U/L (13-75); Potassium 4.5 mmol/L (3.5-5.1); Protein, Total 6.4 g/dL (6.4-8.2); Sodium Level 147 mmol/L (136-145)
[2024-01-23 21:23] LABS: Reflex Lactate? Y
[2024-01-23 21:24] LABS: Lactic Acid 3.6 mmol/L (0.4-1.9)
[2024-01-23 21:25] LABS: Troponin-I HS 132 pg/mL (3.0-78.0)
[2024-01-23 21:26] LABS: CPK Total, Creatine Kinase 5060 U/L (39-308)
[2024-01-23 22:19] LABS: International Normalized Ratio 1.6; Prothrombin Time (Protime)PT. 19.2 SECONDS (11.7-14.9)
--- NOTE | 2024-01-23 23:44 | ED.VIS.FALL ---
HPI HPI - Fall History of Present Illness Chief Complaint: Fall PFSH [facility] Medical History Ventricular tachycardia (paroxysmal) (03/2021) Non-ischemic cardiomyopathy History of non-ST elevation myocardial infarction (NSTEMI) (01/26/17) Arthritis Type 2 diabetes mellitus Old myocardial infarction Chronic systolic (congestive) heart failure Essential (primary) hypertension Paroxysmal atrial fibrillation Aortic valve calcification Atrioventricular block, Mobitz type 2 Atrioventricular block, complete Hyperlipidemia Chronic renal disease, stage 3, moderately decreased glomerular filtration rate between 30-59 mL/min/1.73 square meter Tachy-mary syndrome Home Medications ?Medication ?Instructions ?Recorded ?Last Taken ?Type cyanocobalamin (vitamin B-12) 1,000 mcg sublingual DAILY 01/24/17 01/24/17 History 1,000 mcg sublingual tablet supplement omeprazole 20 mg capsule,delayed 20 mg PO DAILY acid reflux 01/24/17 01/24/17 History release simvastatin 20 mg tablet 20 mg PO QHS cholesterol lowering 01/24/17 01/23/17 History carvedilol 25 mg tablet 25 mg PO BID 06/14/19 Unknown History warfarin 5 mg tablet (Coumadin) 2.5 mg PO SUTUWEFRSA 04/21/20 Unknown History loratadine 10 mg tablet 10 mg PO DAILY 08/28/20 Unknown History acetaminophen 500 mg tablet 500 mg PO Q6H PRN 03/02/21 Unknown History (Tylenol Extra Strength) losartan 50 mg tablet 50 mg PO DAILY 30 days #30 tabs 03/02/21 Unknown History polyethylene glycol 3350 17 17 g PO DAILY PRN constipation 03/02/21 Unknown History gram/dose oral powder (Miralax) torsemide 5 mg tablet 2.5 mg PO DAILY 03/02/21 Unknown History warfarin 1 mg tablet 1 mg PO .COMPLEX #60 tabs 02/26/22 Unknown Rx amiodarone 200 mg tablet 100 mg (1/2 x 200 mg) PO DAILY #90 01/02/24 Unknown Rx tabs azelastine 137 mcg (0.1 %) nasal 1 spray intranasal Q12H 01/23/24 Unknown History spray trazodone 50 mg tablet 50 mg PO QHS PRN sleep 01/23/24 Unknown History Allergy/AdvReac Type Severity Reaction Status Date / Time lisinopril Allergy Severe rash Verified 01/02/24 10:52 amlodipine Allergy Intermediate Rash Verified 01/02/24 10:52 atorvastatin (From Lipitor) Allergy Unknown Verified 01/02/24 10:52 doxazosin Allergy Unknown Verified 01/02/24 10:52 hydrochlorothiazide Allergy Unknown Verified 01/02/24 10:52 niacin (From Niaspan Allergy Unknown Verified 01/02/24 10:52 Extended-Release) propranolol (From Inderal LA) Allergy Unknown Verified 01/02/24 10:52 quinine Allergy Unknown Verified 01/02/24 10:52 tamsulosin (From Flomax) Allergy Unknown Verified 01/02/24 10:52 verapamil (From Calan) Allergy Unknown Verified 01/02/24 10:52 Family History Father CAD (coronary artery disease) Brother CAD (coronary artery disease) Surgical History Hx of colonoscopy History of esophagogastroduodenoscopy (EGD) History of open reduction and internal fixation (ORIF) procedure History of loop recorder Cardiac pacemaker in situ (01/26/17) Social History Smoking Status: Former smoker how long ago did patient quit smokin alcohol intake: current alcohol intake frequency: a few times a week Alcohol type: hard liquor substance use type: does not use caffeine: Yes Type: coffee Number of servings: 3 what type of physical activity do you participate in: none seatbelt use: always do you feel safe at home: Yes EXAM Physical Exam Const Vital Signs: 01/23/24 19:56 01/23/24 20:01 01/23/24 20:01 Temperature 97.6 F L 97.9 F Temperature Source Oral Oral Pulse Rate 69 Respiratory Rate 26 H Respiratory Effort Normal Respiratory Depth Normal Respiratory Pattern Normal Blood Pressure 127/108 H Blood Pressure Mean 114 Pulse Ox 93 Oxygen Delivery Method Room Air Oxygen Flow Rate (L/min) 01/23/24 20:09 01/23/24 21:16 01/23/24 21:16 Temperature 97.4 F L Temperature Source Core Pulse Rate 69 64 Respiratory Rate 26 H 18 Respiratory Effort Respiratory Depth Respiratory Pattern Blood Pressure 127/105 H 118/61 118/61 Blood Pressure Mean 112 80 80 Pulse Ox 93 96 Oxygen Delivery Method Room Air Oxygen Flow Rate (L/min) 01/23/24 22:02 01/23/24 22:03 01/23/24 22:29 Temperature 97.7 F L 98.1 F Temperature Source Core Core Pulse Rate 61 60 Respiratory Rate 20 H 19 H Respiratory Effort Respiratory Depth Respiratory Pattern Blood Pressure 117/67 117/67 124/58 H Blood Pressure Mean 83 83 80 Pulse Ox 90 97 Oxygen Delivery Method Room Air Nasal Cannula Oxygen Flow Rate (L/min) 2 MDM MDM MDM Narrative Medical decision making narrative: HISTORY OF PRESENT ILLNESS: 88-year-old male presents with fall. Per EMS patient was down for several days. REVIEW OF SYSTEMS: Pertinent positives: Reports bilateral knee pain Pertinent negatives: Chest pain PHYSICAL EXAM: Nursing triage notes reviewed, Vital signs reviewed Primary Survey Airway: Intact Breathing: Bilateral breath sounds Circulation: Palpable bilateral femorals, Palpable bilateral radial, Palpable bilateral DP and Palpable bilateral PT Disability / Spine precautions GCS Score: Eye Openin Verbal Response: 5 Motor Response: 6 Secondary Survey Constitutional: Please see MDM Head: Atraumatic, Midface stable, NO jaw malocclusion, No Cephalohematoma, and No Lacerations noted Eye: Pupils equal round and reactive to light, Extraocular muscles intact and No periorbital ecchymosis or stepoff, no evidence of entrapment ENT: Oropharynx clear, no lacerations, no hemotympanum, no raccoon eyes or chanel sign Cervical spine / Neck: No cervical spine bony tenderness, crepitance, or stepoff deformity Trachea midline Lungs: Clear to auscultation, No asymmetric rise and No crepitus, no flail chest Cardiac: Regular rate and rhythm and No murmurs Abdomen: Soft, Nontender and No rebound Pelvis: Pelvis stable to compression : No evidence of genital injury Back: No midline bony tenderness to thoracic/lumbar/sacral spines Neuro: Alert to person and place but not time, moves all 4 extremities, sensation intact in all 4 extremities Extremities: NO gross Deformities Psych: Normal affect Nursing triage notes reviewed, Vital signs reviewed MEDICAL DECISION MAKING: Chief Complaint: Fall, found down External records reviewed: Meds reviewed: On warfarin Factors affecting care: sort V. tach status post his maker, A-fib, hypertension, CHF, warfarin use Social determinants of health: Elderly, lives alone History obtained from others: EMS, son Consults: Trauma surgery [facility] Goals of care discussion: Full code MDM Narrative: Patient was initially hemodynamically stable, afebrile and nontoxic-appearing. Exam concerning for multiple traumatic etiologies including traumatic injury to the head, cervical spine, thoracic, lumbar spine, abdomen, chest and pelvis. Also concern for significant dehydration rhabdomyolysis given amount of time down. Patient was initially resuscitated 1 L normal saline and Zofran for nausea control. ALL IMAGES (IF OBTAINED) HAVE BEEN PERSONALLY REVIEWED AND INTERPRETED BY MYSELF. CK grossly elevated consistent rhabdomyolysis CBC with leukocytosis consistent with endorgan hypoperfusion, severe anemia, no thrombocytopenia INR subtherapeutic BMP with hyponatremia, CKD, Lactate elevated consistent with endorgan hypoperfusion LFTs with hyperbilirubinemia Troponin elevated consistent with endorgan hypoperfusion BNP elevated consistent with volume overload Lipase is wnl indicating no pancreatic inflammation. Urinalysis shows no evidence of urinary inflammation suggestive of UTI Serum alcohol negative CT scan of the head, neck, abdomen, pelvis, thoracic, lumbar spine are negative for acute traumatic injury CT of the chest shows right-sided rib fractures of the 10th and 11th rib X-rays of the elbows bilaterally, left knee were read and reviewed personally myself show no evidence of obvious bony abnormality. Radiologist agrees my interpretation. The synthesis of the patient's history, physical exam, labs images suggest traumatic rhabdomyolysis, rib fractures, dehydration and resulting troponin elevation result of fall and debility. Patient was rehydrated. Patient will need admission to trauma center. The patient and/or family, caregivers express understanding. The patient and/or family, caregivers agrees with the plan. Shared decision making: I will have a discussion with the patient and or visitors regarding risk/benefits of further testing or admission. They will be made aware of of the risk/benefits inherent in this decision they will be given the opportunity to voice understanding. Total critical care time today provided was at least 60 minutes. This excludes separately billable procedures. Critical care time (if documented) is secondary to the patient having high probability of clinically significant/life threatening deterioration in the patient's condition which required my urgent intervention. Impression: 1. Fall 2. Traumatic rhabdomyolysis 3. Elevated troponin 4. Dehydration 5. Hypernatremia Dispo: Transfer to trauma center This note was generated with Sodbuster dictation software. It may contain incorrect words, spelling, and punctuation that were not noted in review of the chart prior to signing. Lab Data Labs: Laboratory Results - last 24 hr 01/23/24 01/23/24 20:15 20:30 WBC 12.7 H RBC 3.13 L Hgb 9.9 L Hct 30.9 L MCV 98.7 H MCH 31.6 MCHC 32.0 RDW Std Deviation 48.4 H RDW Coeff of Noa 13.7 Plt Count 177 MPV 10.7 PT 19.2 H INR 1.6 Sodium 147 H Potassium 4.5 Chloride 115 H Carbon Dioxide 20.0 L Anion Gap 12 BUN 51 H Creatinine 2.54 H Estim Creat Clear Calc 25.47 Est GFR (MDRD) Af Amer 31 L Est GFR (MDRD) Non-Af 26 L BUN/Creatinine Ratio 20.1 H Glucose 140 H Lactic Acid 3.6 H* Calcium 8.5 Total Bilirubin 1.80 H AST 177 H ALT 68 H Alkaline Phosphatase 44 L Total Creatine Kinase 5060 H Troponin I High Sens 132 H* B-Natriuretic Peptide 620.0 H Total Protein 6.4 Albumin 2.9 L Globulin 3.5 Albumin/Globulin Ratio 0.8 L Lipase 16 Urine Color Yellow Urine Clarity Sl Cldy Urine pH 5.0 Ur Specific Delano 1.015 Urine Protein 30 H Urine Glucose (UA) Normal Urine Ketones 5 H Urine Occult Blood 150 H Urine Nitrite Negative Urine Bilirubin Negative Urine Urobilinogen 1 H Ur Leukocyte Esterase Negative Urine RBC 10-25 SEEN Urine WBC 0 SEEN Ur Squamous Epith Cells 0-5 SEEN Urine Bacteria 0 SEEN Urine Mucus 0 SEEN Ethyl Alcohol < 3.0 Radiography Diagnostic Testing: Clinical Impression(s) from Imaging Studies Brain CT 01/23/24 20:11 IMPRESSION: 1. High parietal scalp soft tissue swelling. No CT evidence of acute intracranial pathology. Chronic microvascular ischemic changes. 2. Diffuse sinonasal mucosal thickening. Correlate for associated symptoms. 3. Degenerative changes in the cervical spine. No evidence of acute osseous abnormalities in the spine. Electronically Signed: Thomas Haji DO at 21:30 EDT , Cervical Spine CT 01/23/24 20:11 IMPRESSION: 1. High parietal scalp soft tissue swelling. No CT evidence of acute intracranial pathology. Chronic microvascular ischemic changes. 2. Diffuse sinonasal mucosal thickening. Correlate for associated symptoms. 3. Degenerative changes in the cervical spine. No evidence of acute osseous abnormalities in the spine. Electronically Signed: Thomas Ross DO Raissa at 21:31 EDT , Chest/Abdomen/Pelvis CT 01/23/24 20:11 IMPRESSION: 1. Small left and medium to large right pleural effusion with associated dependent airspace disease which is likely atelectasis rather than pneumonia. 2. Right posterior 10th rib fracture and nondisplaced right posterior 11th rib fracture. No evidence of acute spinal fracture. Multilevel degenerative changes in the thoracic and lumbar spine. 3. Edema overlying the right greater than left hips within the superficial soft tissues. Correlate for contusion/hematoma. 4. Large hiatal hernia. No acute visceral pathology is otherwise identified in the chest, abdomen, or pelvis. Electronically Signed: Thomas PrideSangita Haji DO at 21:27 EDT , Lumbar Spine CT 01/23/24 20:11 IMPRESSION: 1. Small left and medium to large right pleural effusion with associated dependent airspace disease which is likely atelectasis rather than pneumonia. 2. Right posterior 10th rib fracture and nondisplaced right posterior 11th rib fracture. No evidence of acute spinal fracture. Multilevel degenerative changes in the thoracic and lumbar spine. 3. Edema overlying the right greater than left hips within the superficial soft tissues. Correlate for contusion/hematoma. 4. Large hiatal hernia. No acute visceral pathology is otherwise identified in the chest, abdomen, or pelvis. Electronically Signed: Thomas PrideSangita Haji DO at 21:31 EDT , Thoracic Spine CT 01/23/24 20:11 IMPRESSION: 1. Small left and medium to large right pleural effusion with associated dependent airspace disease which is likely atelectasis rather than pneumonia. 2. Right posterior 10th rib fracture and nondisplaced right posterior 11th rib fracture. No evidence of acute spinal fracture. Multilevel degenerative changes in the thoracic and lumbar spine. 3. Edema overlying the right greater than left hips within the superficial soft tissues. Correlate for contusion/hematoma. 4. Large hiatal hernia. No acute visceral pathology is otherwise identified in the chest, abdomen, or pelvis. Electronically Signed: Thomas HajiDO at 21:31 EDT , Elbow X-Ray 01/23/24 20:50 IMPRESSION: Mild soft tissue swelling. No acute osseous findings. Electronically Signed: Thomas Haji at 21:32 EDT , Elbow X-Ray 01/23/24 20:50 IMPRESSION: Mild soft tissue swelling. Degenerative changes. No acute osseous findings. Electronically Signed: Thomas HajiDO at 21:32 EDT , Knee X-Ray 01/23/24 20:50 IMPRESSION: No radiographic evidence of acute osseous abnormality. Electronically Signed: Thomas Haji at 21:33 EDT , Discharge Plan Triage Chief Complaint: Fall ED Provider: Mars Sanchez Dx/Rx/DC Orders Clinical Impression: Traumatic rhabdomyolysis Prescriptions: No Action losartan 50 mg tablet 50 mg PO DAILY 30 Days Qty: 30 Patient Comments: carvedilol 25 mg tablet 25 mg PO BID torsemide 5 mg tablet 2.5 mg PO DAILY loratadine 10 mg tablet 10 mg PO DAILY Patient Comments: TAKE 1 TABLET BY MOUTH ONCE DAILY polyethylene glycol 3350 [Miralax] 17 gram/dose powder 17 g PO DAILY PRN (Reason: constipation) acetaminophen [Tylenol Extra Strength] 500 mg tablet 500 mg PO Q6H PRN amiodarone 200 mg tablet 100 mg PO DAILY Qty: 90 3RF simvastatin 20 MG tablet 20 mg PO QHS omeprazole 20 MG capsule 20 mg PO DAILY cyanocobalamin (vitamin B-12) 1,000 MCG tablet, sublingual 1,000 mcg SL DAILY warfarin [Coumadin] 5 mg tablet 2.5 mg PO SUTUWEFRSA Protocol: Dose Management Condition: Tuesday Dose/Route: 1 mg Instruction: 1 x 1 mg tablet Condition: Tuesday Dose/Route: 1 mg Instruction: 1 x 1 mg tablet Condition: Tuesday Dose/Route: 2.5 mg Instruction: 0.5 x 5 mg tablets Condition: Tuesday Dose/Route: 2.5 mg Instruction: 0.5 x 5 mg tablets Condition: Dose/Route: 1 mg Instruction: 1 x 1 mg tablet Condition: Tuesday Dose/Route: 2.5 mg Instruction: 0.5 x 5 mg tablets Condition: Tuesday Dose/Route: 1 mg Instruction: 1 x 1 mg tablet Protocol Text: Adjustment Start Date: Tuesday01/16/24 INR Value: 3.1 INR Date: 01/16/24 Recheck Date: 01/30/24 azelastine 137 mcg (0.1 %) spray,non-aerosol 1 spray INTRANASAL Q12H Patient Comments: USE 1 SPRAY IN EACH NOSTRIL TWICE DAILY trazodone 50 mg tablet 50 mg PO QHS PRN (Reason: sleep) Patient Comments: TAKE 1 TABLET BY MOUTH ONCE DAILY AT BEDTIME NEEDED FOR SLEEP warfarin 1 mg tablet 1 mg PO .COMPLEX Qty: 60 3RF Protocol: Dose Management Condition: Tuesday Dose/Route: 1 mg Instruction: 1 x 1 mg tablet Condition: Tuesday Dose/Route: 1 mg Instruction: 1 x 1 mg tablet Condition: Tuesday Dose/Route: 2.5 mg Instruction: 0.5 x 5 mg tablets Condition: Tuesday Dose/Route: 2.5 mg Instruction: 0.5 x 5 mg tablets Condition: Dose/Route: 1 mg Instruction: 1 x 1 mg tablet Condition: Tuesday Dose/Route: 2.5 mg Instruction: 0.5 x 5 mg tablets Condition: Tuesday Dose/Route: 1 mg Instruction: 1 x 1 mg tablet Protocol Text: Adjustment Start Date: Tuesday01/16/24 INR Value: 3.1 INR Date: 01/16/24 Recheck Date: 01/30/24 Rx Instructions: 1 mg orally on , , (takes a 2.5 mg tablet all other days of the week).Needs more pills for dose modification prn; Primary Care Provider: Ian Hathaway Referrals: Ian Hathaway PA [Primary Care Provider] - Print Language: Georgian Disposition Disposition: Acute Care Hospital Discharge Location: [facility]
[2024-01-24] VITALS: BP 116/64; PULSE 61; RESP 19; TEMP 36.8; O2SAT 97
[2024-01-24 00:38] VITALS: BP 116/64; PULSE 61; RESP 18; TEMP 36.8; O2SAT 97
== END 2024-01-24 01:00 | disposition short-term general hospital (02) ==
PROVIDERS: Emergency Provider Emergency Medicine; PCP Physician Assistant; Visit Provider Emergency Medicine
DX: T79.6XXA Traumatic ischemia of muscle, initial encounter (principal); I13.0 Hypertensive heart and chronic kidney disease with heart failure and stage 1 through stage 4 chronic kidney disease, or unspecified chronic kidney disease; I50.22 Chronic systolic (congestive) heart failure; I48.0 Paroxysmal atrial fibrillation; N18.30 Chronic kidney disease, stage 3 unspecified; S22.41XA Multiple fractures of ribs, right side, initial encounter for closed fracture; W19.XXXA Unspecified fall, initial encounter; E86.0 Dehydration; E87.0 Hyperosmolality and hypernatremia; R77.8 Other specified abnormalities of plasma proteins; E78.5 Hyperlipidemia, unspecified; Z79.01 Long term (current) use of anticoagulants; Z79.899 Other long term (current) drug therapy; Z87.891 Personal history of nicotine dependence
CPT/HCPCS: 70450; 71250; 72125; 72128; 72131; 73080; 73560; 74176; 80053; 81001; 82077; 82550; 83605; 83690; 83880; 84484; 85027; 85610; 87631; 93005; 96361; 96374; 96376; 99284; A4216; J2405

== ENCOUNTER 2024-01-31 15:44 | Inpatient (IN) | payer MEDICARE, SELFPAY ==
[2024-01-31 15:57] VITALS: BP 136/61; PULSE 69; RESP 14; RESP 18; TEMP 36.1; O2SAT 97; BMI 28.7
--- NOTE | 2024-01-31 17:07 | NURSING ---
Pt arrives to unit ~1600 via EMS. Pt states that his son, Demar Schrader II is his POA. Called and updated pt son of arrival to unit and room number. Pt confirms code status is [id number], no intubation. No further comments/concerns at this time.
--- NOTE | 2024-01-31 19:05 | NURSING ---
Pharmacy called requesting patient's most recent INR results before approving Warfarin order. INR results not included with D/C paperwork from [facility]. RN called [facility], left message requesting information and callback number. Awaiting callback.
[2024-01-31] MEDS: oxyCODONE 5 MG Tablet 2.5 MG PO (20:11)
[2024-01-31] MEDS: Docusate Sodium 100 MG Capsule PO (20:59)
[2024-01-31] MEDS: Acetaminophen 500 MG Tablet PO (21:01)
[2024-01-31] MEDS: Senna Tablet 1 TABLET PO (21:01)
[2024-01-31] MEDS: Carvedilol 25 MG Tablet PO (21:09)
[2024-01-31] MEDS: traZODone 50 MG Tablet PO (21:09)
[2024-01-31] MEDS: Simvastatin 20 MG Tablet PO (21:09)
[2024-01-31] MEDS: Methocarbamol 500 MG Tablet PO (21:16)
[2024-01-31 21:18] VITALS: BP 119/58; PULSE 61; O2SAT 92
--- NOTE | 2024-01-31 21:48 | HP.PCM_ITS ---
HPI - General General Date of Admission: 01/31/24 Date of Service: 01/31/24 Chief Complaint: Here for rehabilitation. HPI Narrative 01/23/2024 PEG BAEZ, is a 88 Male who presents to [facility] ED with fall. Fell into tub, found down by his grandson. Rhabdo, elevated troponin, dehydration, hypernatremia. Transfer to [facility] for trauma care. 01/24/2024 Admit to [facility]. Fell 2-3 days prior, found down. Right 10th, right 11th rib fractures, CK 5,000. Pain control, Lovenox for dvt prophylaxis. 01/25/2024 Tylenol, prn oxycodone for pain.. Amiodarone, restart coumadin for atrial fibrillation. Restart Torsemide 01/26/2024 for HFrEF. Pulmonary toilet for rib fractures. [employer] recommends regular diet. Remove sam catheter. 01/26/2024 Hold Losartan for low blood pressure. Hold Simvastatin for elevated liver enzymes. CK coming down with IV fluids. 01/27/2024 Hold Torsemide. 01/28/2024 Pharmacy adjusting warfarin for atrial fibrillation. PT recommends SNF. 01/29/2024 Palliative Care to discuss goals of care. PT recommends SNF. CK trending down. 01/31/2024 SNF recommended. 01/31/2024 Admit to TCU with debility, here for rehabilitation, strengthening, prior to discharge home alone. [facility] Medical History (Updated 01/31/24 @ 21:[address] Wagner Richardson MD) Ventricular tachycardia (paroxysmal) (03/2021) Non-ischemic cardiomyopathy History of non-ST elevation myocardial infarction (NSTEMI) (01/26/17) Arthritis Type 2 diabetes mellitus Old myocardial infarction Chronic systolic (congestive) heart failure Essential (primary) hypertension Paroxysmal atrial fibrillation Aortic valve calcification Atrioventricular block, Mobitz type 2 Atrioventricular block, complete Hyperlipidemia Chronic renal disease, stage 3, moderately decreased glomerular filtration rate between 30-59 mL/min/1.73 square meter Tachy-mary syndrome Home Medications ?Medication ?Instructions ?Recorded ?Last Taken ?Type cyanocobalamin (vitamin B-12) 1,000 mcg sublingual DAILY 01/24/17 01/24/17 History 1,000 mcg sublingual tablet supplement omeprazole 20 mg capsule,delayed 20 mg PO DAILY acid reflux 01/24/17 01/31/24 History release simvastatin 20 mg tablet 20 mg PO QHS cholesterol lowering 01/24/17 01/23/17 History carvedilol 25 mg tablet 25 mg PO BID Heart 06/14/19 01/31/24 History warfarin 5 mg tablet (Coumadin) 2.5 mg PO TUWEFR Anticoagulant 04/21/20 Unknown History loratadine 10 mg tablet 10 mg PO DAILY Allergies 08/28/20 01/31/24 History acetaminophen 500 mg tablet 500 mg PO Q8H PRN pain (scale 03/02/21 Unknown History (Tylenol Extra Strength) score 1-3) losartan 50 mg tablet 50 mg PO DAILY Blood pressure 30 03/02/21 01/31/24 History days #30 tabs polyethylene glycol 3350 17 17 g PO DAILY PRN constipation 03/02/21 01/31/24 History gram/dose oral powder (Miralax) torsemide 5 mg tablet 2.5 mg PO DAILY PRN Edema, weight 03/02/21 Unknown History gain azelastine 137 mcg (0.1 %) nasal 1 spray intranasal Q12H 01/23/24 Unknown History spray trazodone 50 mg tablet 50 mg PO QHS sleep 01/23/24 Unknown History amiodarone 200 mg tablet 200 mg PO DAILY Blood pressure 01/31/24 01/31/24 History bisacodyl 10 mg rectal suppository 10 mg OK DAILY PRN constipation 01/31/24 Unknown History docusate sodium 100 mg capsule 100 mg PO BID Constipation 01/31/24 Unknown History (Colace) melatonin 3 mg tablet 3 mg PO QHS PRN Sleep 01/31/24 Unknown History methocarbamol 500 mg tablet 500 mg PO Q8H PRN Muscle spasms 01/31/24 Unknown History ondansetron 4 mg disintegrating 4 mg PO Q8H PRN nausea 01/31/24 Unknown History tablet oxycodone 5 mg tablet 2.5 mg PO Q6H PRN Pain 4-6 01/31/24 Unknown History sennosides 8.6 mg tablet (senna) 8.6 mg PO QHS Constipation 01/31/24 Unknown History warfarin 1 mg tablet 1 mg PO .COMPLEX Anticoagulant 01/31/24 Unknown History Allergy/AdvReac Type Severity Reaction Status Date / Time lisinopril Allergy Severe rash Verified 01/02/24 10:52 amlodipine Allergy Intermediate Rash Verified 01/02/24 10:52 atorvastatin (From Lipitor) Allergy Unknown Verified 01/02/24 10:52 doxazosin Allergy Unknown Verified 01/02/24 10:52 hydrochlorothiazide Allergy Unknown Verified 01/02/24 10:52 niacin (From Niaspan Allergy Unknown Verified 01/02/24 10:52 Extended-Release) propranolol (From Inderal LA) Allergy Unknown Verified 01/02/24 10:52 quinine Allergy Unknown Verified 01/02/24 10:52 tamsulosin (From Flomax) Allergy Unknown Verified 01/02/24 10:52 verapamil (From Calan) Allergy Unknown Verified 01/02/24 10:52 Family History Father CAD (coronary artery disease) Brother CAD (coronary artery disease) Surgical History Hx of colonoscopy History of esophagogastroduodenoscopy (EGD) History of open reduction and internal fixation (ORIF) procedure History of loop recorder Cardiac pacemaker in situ (01/26/17) Social History (Updated 01/31/24 @ 21:[address] Wagner Richardson MD) household members: none Smoking Status: Former smoker how long ago did patient quit smokin alcohol intake: current alcohol intake frequency: a few times a week Alcohol type: hard liquor substance use type: does not use caffeine: Yes Type: coffee Number of servings: 3 what type of physical activity do you participate in: none seatbelt use: always do you feel safe at home: Yes ROS Constitutional Constitutional: Reports weakness; Denies chills, fever(s) or weight gain ENT HEENT: Denies headache(s), nasal congestion or nasal discharge Cardiovascular Cardiovascular: Denies chest pain or palpitations Respiratory/Chest Respiratory/Chest: Denies cough, excessive phlegm production or shortness of breath with exertion Gastrointestinal Gastrointestinal: Denies abdominal pain, nausea or vomiting Genitourinary Genitourinary: Denies dysuria Musculoskeletal Musculoskeletal: Denies joint pain or joint swelling Integumentary Integumentary: Denies rash or wounds Neurologic Neurologic: Denies focal weakness, numbness or tingling Psychiatric Psychiatric: Denies anxiety, auditory hallucinations, depression, homicidal ideation or suicidal ideation Vital Signs Vital Signs Vital Signs: 01/31/24 15:57 01/31/24 15:57 01/31/24 21:18 Temperature 96.9 F L Temperature Source Temporal Pulse Rate 69 61 Pulse Rhythm Regular Pulse Strength Normal (2+) Respiratory Rate 14 18 Respiratory Effort Normal Non-Labored Respiratory Depth Normal Respiratory Pattern Normal Blood Pressure 136/61 H 119/58 L Blood Pressure Mean 86 78 Blood Pressure Source Monitor Monitor Blood Pressure Position Semi-Fowlers Semi-Fowlers Blood Pressure Location Left Arm Right Arm Pulse Ox 97 92 Oxygen Delivery Method Nasal Cannula Nasal Cannula Nasal Cannula Oxygen Flow Rate (L/min) 2 2 2 Weight Weight: 104.326 kg Body Mass Index (BMI) 28.7 Physical Exam Const alert General Appearance: cooperative HEENT normocephalic Eyes PERRL and EOMs intact bilaterally Neck supple, no JVD and no carotid bruits Resp normal respiratory effort, normal air movement and clear to auscultation bilaterally Cardio regular rate and regular rhythm GI normal to inspection, nondistended, normoactive bowel sounds, non-tender and non-distended Extremity normal capillary refill General Extremity: Negative for edema Skin no rashes or lesions noted General Skin Exam: no breakdown Psych affect normal Appearance: appropriate Assessment & Plan Assessment/Plan (1) Debility: (2) Fall: (3) Traumatic rhabdomyolysis: (4) Multiple rib fractures: (5) Vitamin B12 deficiency: (6) GERD (gastroesophageal reflux disease): (7) Hyperlipidemia: QUALIFIERS: Hyperlipidemia type: pure hypercholesterolemia Qualified Code(s): E78.00 - Pure hypercholesterolemia, unspecified; E78.0 - Pure hypercholesterolemia (8) Chronic HFrEF (heart failure with reduced ejection fraction): (9) Atrial fibrillation: (10) Coronary artery disease: (11) Diabetes mellitus: (12) Allergic rhinitis: (13) Insomnia: PLAN: Plan 88 year old male with below past medical history hospitalized for fall, rib fractures, rhabdomyolysis, complicated by hypotension, admitted to TCU with debility, here for rehabilitation, strengthening, prior to discharge home alone. * Debility - PT/OT. * Pain - Tylenol 1000mg q8, Oxycodone 2.5mg q4 prn pain (4-10). * Bowel - senna/colace 2 tablets bid, Dulcolax 10mg pr daily prn, Miralax 17gm daily prn. * Adult immunization - Administer pneumonia vaccine, covid vaccine, flu vaccine as appropriate. * DVT prophylaxis - on warfarin. * Atrial fibrillation - Coreg 25mg bid, Amiodarone 200mg daily, Warfarin 1mg/2.5mg alternating, follow inr. * Coronary artery disease - Coreg 25mg bid, Losartan 50mg daily, warfarin 1mg/2.5mg alternating, follow inr. * Chronic HFrEF - Coreg 25mg bid, Losartan 50mg daily, Furosemide 5mg daily prn. * Allergic rhinitis - Loratadine 10mg q48. * Insomnia - Melatonin 3mg qhs prn. * Muscle spasm - Robaxin 500mg q8 prn. * Nausea - Zofran odt 4mg q8 prn. * GERD - Pantoprazole 20mg daily. * Hyperlipidemia - Simvastatin 20mg qhs. 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
[2024-01-31] MEDS: Acetaminophen 500 MG Tablet 1000 MG PO (22:55)
[2024-02-01] MEDS: Acetaminophen 500 MG Tablet 1000 MG PO ×2 (05:51→21:58)
[2024-02-01 05:57] LABS: Hemoglobin 8.5 g/dL (13.0-16.5); Mean Corp Hgb Conc 30.4 g/dL (32-36); Mean Corpuscular Volume 102.2 fL (80-94); Mean Platelet Vol. 10.2 fl (6.2-12.0); POSITIVE COUNT YES; POSITIVE MORPHOLOGY YES; Platelet Count 328 K/mm3 (150-450); RBC Distribution Width CV 14.6 % (11.6-14.6); RBC Distribution Width SD 53.5 fl (35.1-43.9); Red Blood Count 2.74 M/mm3 (4.6-6.2); White Blood Count 6.2 K/mm3 (4.4-11.0)
[2024-02-01 06:02] LABS: Differential Indicated MANUAL DIFF
[2024-02-01 06:06] LABS: International Normalized Ratio 2.9; Prothrombin Time (Protime)PT. 29.9 SECONDS (11.7-14.9)
[2024-02-01 06:34] LABS: Anion Gap 4 (5-15); BUN 43 mg/dL (7-18); BUN/Creat Ratio 19.2 RATIO (10-20); Calcium,Total 8.5 mg/dL (8.5-10.1); Chloride 109 mmol/L (98-107); Creatinine, Serum 2.24 mg/dL (0.70-1.30); EST Glomerular Filtration Rate 30 mL/min (>60); Est Glom Filt Rate - Afr Amer 36 mL/min (>60); Estimated Creatinine Clearance 29.23 ml/min; Glucose 106 mg/dL (74-106); Potassium 4.9 mmol/L (3.5-5.1); Sodium Level 139 mmol/L (136-145)
[2024-02-01 07:18] LABS: Eosinophil 3 % (0-5); Lymphocyte 36 % (19-41); Metamyelocyte 1 % (0-1); Monocyte 4 % (0-10); Myelocyte 7 % (0-0); Neutrophil-Segmented 48 % (47-70); Promyelocyte 1 % (0-0); Total Cells Counted 100 (MANUAL DIFF)
[2024-02-01 07:19] LABS: Absolute Lymphocyte Count 2.24 X10^3/uL (0.83-4.51)
--- NOTE | 2024-02-01 10:34 | PCM.PN.DRR ---
Documented by User: Carina Lake 02/01/24 10:59 TCU RX Drug Regimen Review Subjective/Objective Subjective/Objective: Subjective: TCU Admission. 88 YOM presented to ER with a fall. Hospitalized for fall, rib fractures, rhabdomyolysis, complicated by hypotension. Admitted to TCU with debility for strengthening and rehabilitation. Objective: Allergies lisinopril Allergy (Severe, Verified 01/02/24 10:52) rash amlodipine Allergy (Intermediate, Verified 01/02/24 10:52) Rash atorvastatin (From Lipitor) Allergy (Verified 01/02/24 10:52) Unknown doxazosin Allergy (Verified 01/02/24 10:52) Unknown hydrochlorothiazide Allergy (Verified 01/02/24 10:52) Unknown niacin (From Niaspan Extended-Release) Allergy (Verified 01/02/24 10:52) Unknown propranolol (From Inderal LA) Allergy (Verified 01/02/24 10:52) Unknown quinine Allergy (Verified 01/02/24 10:52) Unknown tamsulosin (From Flomax) Allergy (Verified 01/02/24 10:52) Unknown verapamil (From Calan) Allergy (Verified 01/02/24 10:52) Unknown Current Medications Generic Name Dose Route Start Last Admin Trade Name Freq PRN Reason Stop Dose Admin Acetaminophen 1,000 mg 01/31/24 22:05 02/01/24 05:51 Acetaminophen 500 Mg Tablet PO 1,000 mg Q8 TRI Administration Amiodarone HCl 200 mg 02/01/24 10:00 Amiodarone 200 Mg Tablet PO DAILY TRI Bisacodyl 10 mg 01/31/24 16:58 Bisacodyl 10 Mg Suppository RC DAILY PRN constipation Carvedilol 25 mg 01/31/24 22:00 01/31/24 21:09 Carvedilol 25 Mg Tablet PO 25 mg BID COUNTS INCLUDE 234 BEDS AT THE [facility] Administration Protocol Furosemide 5 mg 01/31/24 17:34 Furosemide 20 Mg Tablet PO DAILY PRN Edema, weight gain Loratadine 10 mg 02/02/24 10:00 Loratadine 10 Mg Tablet PO Q48 COUNTS INCLUDE 234 BEDS AT THE [facility] Losartan Potassium 50 mg 02/01/24 10:00 Losartan Potassium 50 Mg Tablet PO DAILY COUNTS INCLUDE 234 BEDS AT THE [facility] Protocol Melatonin 3 mg 01/31/24 16:58 Melatonin 3 Mg Tablet PO QHS PRN Sleep Methocarbamol 500 mg 01/31/24 16:58 01/31/24 21:16 Methocarbamol 500 Mg Tablet PO 500 mg Q8H PRN Administration Muscle spasms Ondansetron HCl 4 mg 01/31/24 16:58 Ondansetron Odt 4 Mg Tablet PO Q8H PRN nausea Oxycodone HCl 2.5 mg 01/31/24 22:01 Oxycodone 5 Mg Tablet PO Q4H PRN PRN Pain 4-10 Pantoprazole Sodium 20 mg 02/01/24 10:00 Pantoprazole Sodium 20 Mg Tablet PO DAILY TRI Polyethylene Glycol 17 gm 01/31/24 17:20 Polyethylene Glycol 3350 17 Gm Packet PO DAILY PRN constipation Senna/Docusate Sodium 2 tablet 02/01/24 10:00 Senna/Docusate Sodium 1 Tablet PO BID COUNTS INCLUDE 234 BEDS AT THE [facility] Simvastatin 20 mg 01/31/24 22:00 01/31/24 21:09 Simvastatin 20 Mg Tablet PO 20 mg QHS COUNTS INCLUDE 234 BEDS AT THE [facility] Administration Trazodone HCl 50 mg 01/31/24 22:00 01/31/24 21:09 Trazodone 50 Mg Tablet PO 50 mg QHS COUNTS INCLUDE 234 BEDS AT THE [facility] Administration Tuberculin PPD 0.1 ml 02/08/24 10:00 Tuberculin,Purif.Prot.Deriv. 50 Tu/Ml Vial ID 02/08/24 10:01 X1 ONE Warfarin Sodium 2.5 mg 01/31/24 17:00 01/31/24 19:36 Warfarin 2.5 Mg Tablet PO 2.5 mg TUWEFR TRI Administration Warfarin Sodium 1 mg 02/02/24 17:00 Warfarin 1 Mg Tablet PO SuMoThSa COUNTS INCLUDE 234 BEDS AT THE [facility] Problem List Insomnia (Acute) Allergic rhinitis (Acute) Diabetes mellitus (Acute) Coronary artery disease (Acute) Atrial fibrillation (Acute) Chronic HFrEF (heart failure with reduced ejection fraction) (Chronic) Hyperlipidemia (Acute) GERD (gastroesophageal reflux disease) (Acute) Vitamin B12 deficiency (Acute) Multiple rib fractures (Acute) Fall (Acute) Debility (Acute) Vital Signs Temp Pulse Resp BP Pulse Ox O2 Del Method O2 Flow Rate 96.9 F L 61 18 119/58 L 92 Nasal Cannula 2 01/31/24 15:57 01/31/24 21:18 01/31/24 15:57 01/31/24 21:18 01/31/24 21:18 01/31/24 21:18 02/01/24 10:14 Oxygen Flow Rate (L/min) 2 Oxygen Delivery Method Nasal Cannula Weight: 104.326 kg Body Mass Index (BMI) 28.7 Sodium 139 mmol/L (136-145) 02/01/24 05:09 Potassium 4.9 mmol/L (3.5-5.1) 02/01/24 05:09 Chloride 109 mmol/L (98-107) H 02/01/24 05:09 Carbon Dioxide 26.0 mmol/L (21.0-32.0) 02/01/24 05:09 Anion Gap 4 (5-15) L 02/01/24 05:09 BUN 43 mg/dL (7-18) H 02/01/24 05:09 Creatinine 2.24 mg/dL (0.70-1.30) H 02/01/24 05:09 Est GFR (MDRD) Af Amer 36 mL/min (>60) L 02/01/24 05:09 Est GFR (MDRD) Non-Af 30 mL/min (>60) L 02/01/24 05:09 BUN/Creatinine Ratio 19.2 RATIO (10-20) 02/01/24 05:09 Glucose 106 mg/dL (74-106) 02/01/24 05:09 Assessment/Plan: 1. Pain: acetaminophen 1000mg PO Q8 and oxycodone 2.5mg PO Q4H PRN pain 4-10. Resident has not had any PRN doses. Please continue to monitor for increased pain and PRN usage. 2. Bowel: senna/docusate 2T PO BID, bisacodyl 10mg RC daily PRN constipation and Miralax 17gm PO daily PRN constipation. Resident has not used any PRN doses. Please continue to monitor for constipation and PRN usage. Last documented bowel movement was 01/30. 3. Atrial fibrillation/CAD/HFrEF: carvedilol 25mg PO BID, amiodarone 200mg PO daily, losartan 50mg PO daily, furosemide 5mg PO daily PRN edema/weight gain and warfarin 2.5mg PO TMF and 1mg all other days. Please continue to monitor for S/S of bleeding, INR (last 2.9 01/31), BP (last 119/58), HR (last 61), Scr (last 2.24mg/dL), potassium (last 4.9mmol/L), sodium (last 139mmol/L), LFTs and SOB. No PRN doses have been given. 4. Hyperlipidemia: simvastatin 20mg PO QHS. Please consider ordering a lipid panel if clinically appropriate as there is no panel in the chart. Thanks. Please continue to monitor LFTs (last 01/23/24) and muscle pain. 5. GERD: pantoprazole 20mg PO daily. Please continue to monitor for S/S of GERD and diarrhea (BEERs medication). 6. Muscle spasms: methocarbamol 500mg Q8H PRN muscle spasms. Resident has had 1 dose so far. Please continue to monitor PRN usage, muscle spasms and anticholinergic side effects (BEERs). 7. Allergic rhinitis: loratadine 10mg PO Q48. Please continue to monitor for S/S of allergies and renal function. 8. Nausea: ondansetron ODT 4mg PO Q8 PRN nausea. Resident has not had any PRN doses. Please continue to monitor for nausea and PRN usage. Assessment/Plan for indications treated with psychotropic medications: 1. Insomnia: trazodone 50mg PO QHS and melatonin 3mg PO QHS PRN insomnia. Resident has not had any PRN doses. Please see physician note regarding GDR. Please continue to monitor for PRN usage and excessive drowsiness. Medical chart and medication regimen reviewed. The following medication irregularities or issues were identified: 1. Simvastatin 20mg PO QHS. Please consider ordering a lipid panel if clinically appropriate as there is no panel in the chart. Thanks. Date Date of Note:: 02/01/24 Documented by User: Dr. Wagner Richardson MD 02/01/24 11:40 TCU RX Drug Regimen Review Provider Comments Provider responsibility Provider Comments to Recommendations by Pharmacy: Agree
[2024-02-01] MEDS: Carvedilol 25 MG Tablet PO ×2 (10:36→21:58)
[2024-02-01] MEDS: Amiodarone 200 MG Tablet PO (10:36)
[2024-02-01] MEDS: Losartan Potassium 50 MG Tablet PO (10:37)
[2024-02-01] MEDS: Pantoprazole Sodium 20 MG Tablet PO (10:37)
[2024-02-01] MEDS: Senna/Docusate Sodium 1 Tablet 2 TABLET PO ×2 (10:37→21:58)
[2024-02-01 10:46] VITALS: BP 115/56; PULSE 60; RESP 18; O2SAT 93
--- NOTE | 2024-02-01 11:23 | NURSING ---
Denial Management Representative Note; Activity Asset: Judy Benz prefers to be called Moses. Moses is independent in his choice of daily activities. He enjoy watching tv, reading and spending time with family. He prefers to rest when not in therapy. He welcomes visits from the hospice clinical manager and therapy dog as well. Staff will encourage social activities, remind him of weekly activities and respect his right to say no.
[2024-02-01] MEDS: Tuberculin,Purif.prot.deriv. 50 TU/ML Vial 0.1 ML ID (12:15)
[2024-02-01] MEDS: Ondansetron ODT 4 MG Tablet PO (13:19)
--- NOTE | 2024-02-01 13:33 | NURSING ---
AROUND 0830 PT THROWING UP THICK CLEAR PHLEGM AFTER BREAKFAST. SM AMOUNT OF FOOD WITH IT. PT STATED HE FEELS FINE. LUNGS DIMINISHED BUT CLEAR. OFFERED PRN ZOFRAN,PT DECLINED. THEN AFTER LUNCH PT STARTED AGAIN WITH THICK CLEAR PHLEGM AND SM AMOUNT OF FOOD.. PT DID TAKE ZOFRAN THIS TIME. AND SPEECH THERAPY DID SEE PT. WILL CONTINUE TO MONITOR AND WILL LET KNOW. RN AWARE
[2024-02-01 14:54] VITALS: BP 109/65; PULSE 60; RESP 14; TEMP 35.6; O2SAT 97
[2024-02-01] MEDS: oxyCODONE 5 MG Tablet 2.5 MG PO ×2 (15:38→21:57)
[2024-02-01 15:46] VITALS: O2SAT 97
--- NOTE | 2024-02-01 16:33 | CASEMGMT ---
Social Work SW met with patient to complete initial assessment. Introduced self and role. Verified contacts. Pt confirmed code status as DNR-CCA, no intubation. SW requested pt have son provide copies of advanced directives. Educated to [facility] insurance with NRD 02/12 and continued stay is not guaranteed with each review. Pt's goal is to return home alone to tri-level home at [facility]. See assessment for details. SW will continue to follow for DC planning. Betty Burrell, INSURANCE PREMIUM AUDITOR COMBAT CONTROL MANAGER
[2024-02-01 17:02] VITALS: O2SAT 97
--- NOTE | 2024-02-01 17:35 | RAD_ITS ---
EXAM: XR CHEST, 2 VIEWS CLINICAL INDICATION: Vomiting clear sputum. Vomiting clear sputum. TECHNIQUE: Frontal and lateral views of the chest. COMPARISON: Chest x-ray 01/09/2022. FINDINGS: LUNGS AND PLEURAL SPACES: There are small bilateral pleural effusions. There is non-dense infiltration in the mid and lower lung young bilaterally. Findings probably represent CHF with pulmonary edema. Overlying pneumonia cannot be entirely excluded but is thought to be less likely. No pneumothorax. HEART: The heart is borderline in size. MEDIASTINUM: Central airways and mediastinal contour are unremarkable. BONES/JOINTS: There are multilevel degenerative changes in the visualized spine. No acute fracture. SOFT TISSUES: Unremarkable. TUBES, LINES AND DEVICES: There is an atrioventricular pacemaker. RAD/Chest PA and Lateral IMPRESSION: 1. Suspect CHF with pulmonary edema and small bilateral pleural effusions. 2. Pacemaker. Electronically Signed: Kaden Rider MD at 6:48 EDT ,
[2024-02-01 21:45] VITALS: BP 114/66; PULSE 60; RESP 18; O2SAT 98
[2024-02-01] MEDS: MELATONIN 3 MG TABLET PO (21:56)
[2024-02-01] MEDS: traZODone 50 MG Tablet PO (21:58)
[2024-02-01 22:00] VITALS: O2SAT 98
[2024-02-01] MEDS: Simvastatin 20 MG Tablet PO (22:00)
[2024-02-02] MEDS: oxyCODONE 5 MG Tablet 2.5 MG PO ×2 (05:33→20:44)
[2024-02-02] MEDS: Methocarbamol 500 MG Tablet PO ×2 (05:34→14:06)
[2024-02-02] MEDS: Acetaminophen 500 MG Tablet 1000 MG PO ×3 (05:34→20:49)
[2024-02-02 05:38] LABS: Hematocrit 27.8 % (40-54); Hemoglobin 8.4 g/dL (13.0-16.5)
[2024-02-02 05:49] LABS: International Normalized Ratio 3.3
--- NOTE | 2024-02-02 06:09 | NURSING ---
This nurse was in patient's room to administer AM medications. This nurse noticed the mepilex from the patient's left elbow/AC area was sitting on the table. When asked why the dressing was off patient stated, that lady had to wrap a big gob of tape around my arm after taking blood. Patient stated he did not take the dressing off and is sure that the lady that took his labs removed the dressing. Upon assessment pt's elbow skin tear was HERB and coban was tightly wrapped around pt's AC. Coban removed, cleansed tear with NS, new mepilex applied. Date time and initials on dressing.
[2024-02-02 08:50] LABS: Pathologist Review Reviewed
[2024-02-02] MEDS: Loratadine 10 MG Tablet PO (10:11)
[2024-02-02] MEDS: Pantoprazole Sodium 20 MG Tablet PO (10:11)
[2024-02-02] MEDS: Senna/Docusate Sodium 1 Tablet 2 TABLET PO ×2 (10:12→20:49)
[2024-02-02 10:19] VITALS: BP 90/50; PULSE 60; O2SAT 92
[2024-02-02 11:21] VITALS: BP 88/50; PULSE 60
--- NOTE | 2024-02-02 11:31 | NURSING ---
PT BP LOW, NOTIFIED. PER HOLD LASIX,AMIODARONE,COREG AND COZAAR AND PUSH WATER. RN AWARE
[2024-02-02] MEDS: Ondansetron ODT 4 MG Tablet PO (12:53)
[2024-02-02 13:55] VITALS: O2SAT 95
--- NOTE | 2024-02-02 14:10 | NURSING ---
PT THREW UP 200CC OF LUNCH AND CLEAR THICK PHLEGM. PRN ZOFRAN GIVEN
[2024-02-02 14:30] VITALS: BP 94/54; PULSE 60; RESP 16; TEMP 35.8; O2SAT 97
[2024-02-02 17:21] VITALS: BP 120/70
[2024-02-02] MEDS: MELATONIN 3 MG TABLET PO (20:44)
[2024-02-02] MEDS: Carvedilol 25 MG Tablet PO (20:49)
[2024-02-02] MEDS: Simvastatin 20 MG Tablet PO (20:49)
[2024-02-02] MEDS: traZODone 50 MG Tablet PO (20:50)
[2024-02-03] MEDS: Acetaminophen 500 MG Tablet 1000 MG PO ×2 (05:34→21:50)
[2024-02-03] MEDS: Methocarbamol 500 MG Tablet PO ×2 (05:34→21:53)
[2024-02-03 06:06] LABS: Anion Gap 4 (5-15); BUN 51 mg/dL (7-18); BUN/Creat Ratio 20.6 RATIO (10-20); Calcium,Total 8.6 mg/dL (8.5-10.1); Chloride 107 mmol/L (98-107); Creatinine, Serum 2.48 mg/dL (0.70-1.30); EST Glomerular Filtration Rate 26 mL/min (>60); Est Glom Filt Rate - Afr Amer 32 mL/min (>60); Glucose 93 mg/dL (74-106); Potassium 4.8 mmol/L (3.5-5.1); Sodium Level 135 mmol/L (136-145)
[2024-02-03] MEDS: Pantoprazole Sodium 20 MG Tablet PO (09:46)
[2024-02-03] MEDS: Furosemide 20 MG Tablet PO (09:46)
[2024-02-03] MEDS: Senna/Docusate Sodium 1 Tablet 2 TABLET PO ×2 (09:46→21:49)
[2024-02-03] MEDS: oxyCODONE 5 MG Tablet 2.5 MG PO (09:59)
--- NOTE | 2024-02-03 10:58 | SP.MBSS_ITS ---
Modified Barium Swallow Patient Information Study Date: 02/03/24 Study Time: 10:00 Direct Billable Minutes: 160 Total Minutes procedure & reportin Diagnosis: oropharyngeal dysphagia, R13.12 esophageal dysphagia R13.14 Referring Physician: Wagner Richardson Chi Reason for Referral: Objectively assess swallow function, assess risk for aspiration, and determine recommendations for least restrictive diet textures and compensatory strategies to improve safety of swallow. Medical History: Patient is a 88 Male who presents to [facility] ED with fall on 01/23/24. He fell into tub and was found by grandson several days later. He was transferred to [facility] for trauma. Right 10th, right 11th rib fractures, CK 5,000. On 024, pt. admitted to TCU with debility, here for rehabilitation, strengthening, prior to discharge home alone. Pt. was seen at [facility] on 01/25/24 d/t incident of choking while eating and laying in bed. ST was ordered for dysphagia however no skilled ST was indicated as pt. was tolerating diet w/o difficulty. It was recommended that if concerns for aspiration persist, recommend MBSS. ST consulted at this level of care d/t pt. throwing up significant amount of thick, clear phlegm after breakfast and lunch w/ small amount of food observed. Pt. participated in CBSE on 02/02/24 where he was showing s/sx of oropharyngeal and esophageal dysphagia, therefore MBSS was recommended. Current Diet Ordered: Regular; Thin Dentition: WNL, Upper Dentures and Lower Dentures Mental Status: WNL Respiratory Status: Oxygenating on 2L/M nasal cannula Penetration-Aspiration Scale Penetration-Aspiration Scale: OBJECTIVE ASSESSMENT OF SWALLOW FUNCTION (QUANTITATIVE ? PER TRIAL): PENETRATION / ASPIRATION SCALE ([place]): 1 = does not enter airway 2 = enters airway/above vocal folds/ejected 3 = enters airway/above vocal folds/not ejected 4 = enters airway/contacts vocal folds/ejected 5 = enters airway/contacts vocal folds/not ejected 6 = enters airway/below vocal folds/ejected 7 = enters airway/below vocal folds/not ejected despite effort 8 = enters airway/below vocal folds/no effort VIDEOFLOROSCOPIC SCALE SCORE ([place]): Grade I = aspiration of material that has penetrated into the laryngeal vestibule, intact cough reflex Grade II = aspiration < 10 % of the bolus, intact cough reflex Grade III = aspiration of < 10 % of the bolus, reduced cough reflex or aspiration of > 10 % of the bolus, intact cough reflex Grade IV = aspiration of > 10 % of the bolus, reduced cough reflex Penetration-Aspiration Scale Score Thin Liquid via teaspoon: Result: 2= enter airway/above vocal folds/ejected Thin Liquid via teaspoon Trial 2: Result: 2= enter airway/above vocal folds/ejected Thin Liquid via small single sip: cup: Result: 3= enters airways/above vocal folds/not ejected Thin Liquid via small single sip: cup Trial 2: Result: 2= enter airway/above vocal folds/ejected Thin Liquid via sequential sips: cup: Result: 3= enters airways/above vocal folds/not ejected Thin Liquid via small single sip: cup Effortful swallow: Result: 2= enter airway/above vocal folds/ejected [place] Thick Liquid via small single sip: cup: Result: 2= enter airway/above vocal folds/ejected Honey Thick Liquid via small single sip: cup: Result: 2= enter airway/above vocal folds/ejected Pudding: Result: 1= does not enter airway Cookie: Result: 1= does not enter airway Thin Liquid via single sip: straw: Result: 2= enter airway/above vocal folds/ejected Barium Tablet: Result: 1= does not enter airway Oral Phase Labial Seal: No Labial Escape Tongue Control During Bolus Hold: Posterior escape of greater than half of bolus Bolus Preparation/Mastication: Slow prolonged chewing/mashing with complete recollection Bolus Transport/Lingual Motion: Delayed initiation of tongue motion Oral Residue: Residue collection on oral structures Pharyngeal Phase Initiation of Pharyngeal Swallow: Bolus head in pyriforms Soft Palate Elevation: No bolus between soft palate and pharyngeal wall Laryngeal Elevation: Comp. Superior move thyroid cart w/comp. apprx arytenoid cart-epig pet Anterior Hyoid Excursion: Partial anterior movement Epiglottic Movement: Complete inversion Laryngeal Vestibule Closure at Height of Swallow: Incomplete; narrow column of air/contrast in laryngeal vestibule Pharyngeal Stripping Wave: Present - diminished Pharyngoesophageal Segment Opening: Parital distension and partial duration; parital obstruction of flow Tongue Base Retraction: Narrow column of contrast between tongue base & post. pharyngeal wall Pharyngeal Residue: Collection of residue within or on pharyngeal structures Esophageal Phase Esophageal Clearance: Esophageal retention w/ retrograde flow through pharyngoesophageal seg Treatment Strategies Effects of treatment strategies attemped:: effortful swallow = not effective Diagnosis/Impression Diagnosis: mild oropharyngeal dysphagia R13.12, moderate esophageal dysphagia R13.14 Impression: Pt. presents w/ mild oropharyngeal deficits. Pt. demonstrated mildly prolonged mastication w/ Rebecca Doone cookie which HEAD MEN'S TENNIS COACH suspects is d/t ill fitting dentures. W/ time, pt. was able to demonstrate adequate bolus cohesion, AP transit and mild oral residue after the swallow. Pt. demonstrating poor bolus control observed with all consistencies (thin, NTL, HTL, pudding, cookie) resulting in premature spillage to the vallecula and pyriforms. Pt. also had delayed pharyngeal onset timing resulting in suboptimal bolus location upon swallow onset. Pharyngeal delay, combined with poor bolus control results in laryngeal penetration with all consistences. W/ sequential sips of thin liquid via cup - trace penetration observed on the 2nd swallow that was NOT fully ejected. Poor pharyngeal motility resulting in pharyngeal residue in the vallecula post deglutition. Pt. independently used a double swallow which decreased pharyngeal residues. Pt. presents w/ esophageal dysphagia. Notable retention of contrast material in the upper and mid-esophagus following few sips of thin liquids suggestive of esophageal motility issues or obstruction. Retrograde flow of contrast through the Upper Esophageal Sphincter (UES) observed after ingestion of a bite of cookie which almost spilled into the laryngeal vestibule. Observed reflux of contrast material nearly spilling into the airway which indicates a significant risk for aspiration. The reflux reaching the airway suggests compromised airway protection and potential aspiration risk. 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 Recommending GI referral. Recommendations Diet: Thin Liquids (full liquid diet w/ diet advancement per GI recommendations) Compensatory Strategies: Small Bites, Small Sips (intermittent cough and re- swallow), Slow Rate, Multiple Swallows, Alternate bites/solids and sips/liquids, Sitting upright and Remain sitting upright for 30 minutes after PO intake Recommend Repeat Modified Barium Swallow: No Need for Skilled Speech Therapy Services: Yes Recommended Referrals: GI Consult (Communication w/ Dr. Richardson and Dr. Zhang on MBSS results.) Education Completed: 1. Described result of evaluation., 2. Pt understands evaluation & agrees with goals and treatment plan. and 4. Family/caregivers understand evaluation & agree w/ goals & tx plan. Status Active ST Patient: Active Contact Information [facility] Speech Therapy:: Nancy Milner M.A. CCC-HEAD M[employer]'S TENNIS COACH Speech-Language Pathologist [facility] [address] [place] [address] [email or web address] [phone]
[2024-02-03] MEDS: Ondansetron ODT 4 MG Tablet PO (13:19)
[2024-02-03 16:28] VITALS: BP 98/62; PULSE 60; RESP 17; TEMP 36.1; O2SAT 100
[2024-02-03] MEDS: oxyCODONE 5 MG Tablet PO ×2 (16:31→21:51)
--- NOTE | 2024-02-03 17:37 | CON.PCM.GI_ITS ---
HPI Consult Data Date of Consult: 02/03/24 HPI Narrative Reason for Consultation: Dysphagia and aspiration HPI Narrative: PEG BAEZ, is a 88 M who is currently in TCU. The patient was diagnosed with rhabdomyolysis after patient fell in the tub and was found several days later by family member. He sustained multiple rib fractures. He has been doing well except for some mild anemia. As per the patient he has been having trouble swallowing. He says at home he can feel things get stuck and subsequently he able to get it up without liquids or he vomits it up. He underwent a recent video swallow by speech therapy and it showed significant dilation of the esophagus with distal thickening around the lower esophageal sphincter and aspiration of liquids into his oropharynx. I was consulted for management of esophageal dysphagia with aspiration. [facility] Medical History (Updated 02/03/24 @ 17:[address] Quach Friend, DO) Ventricular tachycardia (paroxysmal) (03/2021) Non-ischemic cardiomyopathy History of non-ST elevation myocardial infarction (NSTEMI) (01/26/17) Arthritis Type 2 diabetes mellitus Old myocardial infarction Chronic systolic (congestive) heart failure Essential (primary) hypertension Paroxysmal atrial fibrillation Aortic valve calcification Atrioventricular block, Mobitz type 2 Atrioventricular block, complete Hyperlipidemia Chronic renal disease, stage 3, moderately decreased glomerular filtration rate between 30-59 mL/min/1.73 square meter Tachy-mary syndrome Home Medications ?Medication ?Instructions ?Recorded ?Last Taken ?Type cyanocobalamin (vitamin B-12) 1,000 mcg sublingual DAILY 01/24/17 01/24/17 History 1,000 mcg sublingual tablet supplement omeprazole 20 mg capsule,delayed 20 mg PO DAILY acid reflux 01/24/17 01/31/24 History release simvastatin 20 mg tablet 20 mg PO QHS cholesterol lowering 01/24/17 01/23/17 History carvedilol 25 mg tablet 25 mg PO BID Heart 06/14/19 01/31/24 History warfarin 5 mg tablet (Coumadin) 2.5 mg PO TUWEFR Anticoagulant 04/21/20 Unknown History loratadine 10 mg tablet 10 mg PO DAILY Allergies 08/28/20 01/31/24 History acetaminophen 500 mg tablet 500 mg PO Q8H PRN pain (scale 03/02/21 Unknown History (Tylenol Extra Strength) score 1-3) losartan 50 mg tablet 50 mg PO DAILY Blood pressure 30 03/02/21 01/31/24 History days #30 tabs polyethylene glycol 3350 17 17 g PO DAILY PRN constipation 03/02/21 01/31/24 History gram/dose oral powder (Miralax) torsemide 5 mg tablet 2.5 mg PO DAILY PRN Edema, weight 03/02/21 Unknown History gain azelastine 137 mcg (0.1 %) nasal 1 spray intranasal Q12H 01/23/24 Unknown History spray trazodone 50 mg tablet 50 mg PO QHS sleep 01/23/24 Unknown History amiodarone 200 mg tablet 200 mg PO DAILY Blood pressure 01/31/24 01/31/24 History bisacodyl 10 mg rectal suppository 10 mg ND DAILY PRN constipation 01/31/24 Unknown History docusate sodium 100 mg capsule 100 mg PO BID Constipation 01/31/24 Unknown History (Colace) melatonin 3 mg tablet 3 mg PO QHS PRN Sleep 01/31/24 Unknown History methocarbamol 500 mg tablet 500 mg PO Q8H PRN Muscle spasms 01/31/24 Unknown History ondansetron 4 mg disintegrating 4 mg PO Q8H PRN nausea 01/31/24 Unknown History tablet oxycodone 5 mg tablet 2.5 mg PO Q6H PRN Pain 4-6 01/31/24 Unknown History sennosides 8.6 mg tablet (senna) 8.6 mg PO QHS Constipation 01/31/24 Unknown History warfarin 1 mg tablet 1 mg PO .COMPLEX Anticoagulant 01/31/24 Unknown History Allergy/AdvReac Type Severity Reaction Status Date / Time lisinopril Allergy Severe rash Verified 01/02/24 10:52 amlodipine Allergy Intermediate Rash Verified 01/02/24 10:52 atorvastatin (From Lipitor) Allergy Unknown Verified 01/02/24 10:52 doxazosin Allergy Unknown Verified 01/02/24 10:52 hydrochlorothiazide Allergy Unknown Verified 01/02/24 10:52 niacin (From Niaspan Allergy Unknown Verified 01/02/24 10:52 Extended-Release) propranolol (From Inderal LA) Allergy Unknown Verified 01/02/24 10:52 quinine Allergy Unknown Verified 01/02/24 10:52 tamsulosin (From Flomax) Allergy Unknown Verified 01/02/24 10:52 verapamil (From Calan) Allergy Unknown Verified 01/02/24 10:52 Family History Father CAD (coronary artery disease) Brother CAD (coronary artery disease) Surgical History Hx of colonoscopy History of esophagogastroduodenoscopy (EGD) History of open reduction and internal fixation (ORIF) procedure History of loop recorder Cardiac pacemaker in situ (01/26/17) Social History (Updated 01/31/24 @ 21:[address] Wagner Richardson MD) household members: none Smoking Status: Former smoker how long ago did patient quit smokin alcohol intake: current alcohol intake frequency: a few times a week Alcohol type: hard liquor substance use type: does not use caffeine: Yes Type: coffee Number of servings: 3 what type of physical activity do you participate in: none seatbelt use: always do you feel safe at home: Yes ROS Constitutional Constitutional: Reports weakness; Denies chills, fever(s) or weight gain ENT HEENT: Denies headache(s), nasal congestion or nasal discharge Cardiovascular Cardiovascular: Denies chest pain or palpitations Respiratory/Chest Respiratory/Chest: Denies cough, excessive phlegm production or shortness of breath with exertion Gastrointestinal Gastrointestinal: Denies abdominal pain, nausea or vomiting Genitourinary Genitourinary: Denies dysuria Musculoskeletal Musculoskeletal: Denies joint pain or joint swelling Integumentary Integumentary: Denies rash or wounds Neurologic Neurologic: Denies focal weakness, numbness or tingling Psychiatric Psychiatric: Denies anxiety, auditory hallucinations, depression, homicidal ideation or suicidal ideation Physical Exam Const alert General Appearance: cooperative HEENT normocephalic Eyes PERRL and EOMs intact bilaterally Neck supple, no JVD and no carotid bruits Resp normal respiratory effort, normal air movement and clear to auscultation bilaterally Cardio regular rate and regular rhythm GI normal to inspection, nondistended, normoactive bowel sounds, non-tender and non-distended Extremity normal capillary refill General Extremity: Negative for edema Skin no rashes or lesions noted General Skin Exam: no breakdown Psych affect normal Appearance: appropriate Lab / Micro Data 02/02/24 05:12 02/03/24 04:57 Labs: Laboratory Results - last 24 hr 02/03/24 04:57: Sodium 135 L, Potassium 4.8, Chloride 107, Carbon Dioxide 24.0, Anion Gap 4 L, BUN 51 H, Creatinine 2.48 H, Estim Creat Clear Calc 26.40, Est GFR (MDRD) Af Amer 32 L, Est GFR (MDRD) Non-Af 26 L, BUN/Creatinine Ratio 20.6 H , Glucose 93, Calcium 8.6 Assessment & Plan Assessment/Plan (1) Dysphagia: (2) Aspiration into airway: PLAN: Plan 88-year-old with multiple comorbidities and recent multiple rib fractures and the development of rhabdomyolysis. He has also history of tachybradycardia syndrome, AV block, paroxysmal atrial fibrillation on anticoagulation status post permanent pacemaker in 2017. He is currently in the TCU and has been determined to have aspiration and esophageal dysphagia. After looking at the images it looks like an appropriate esophageal motility of the lower esophageal sphincter versus achalasia. He will undergo an upper endoscopy on 02/06/2024. Okay with him being a liquid diet for now. Risk and benefits were explained to the patient. Charges/Coding Visit Charges Inpatient E&M: 57706 SNF Init L2
[2024-02-03] MEDS: traZODone 50 MG Tablet PO (21:49)
[2024-02-03] MEDS: Carvedilol 25 MG Tablet PO (21:49)
[2024-02-03] MEDS: Simvastatin 20 MG Tablet PO (21:50)
[2024-02-03 22:00] VITALS: O2SAT 99
[2024-02-04] MEDS: Acetaminophen 500 MG Tablet 1000 MG PO ×3 (06:10→21:16)
[2024-02-04] MEDS: oxyCODONE 5 MG Tablet PO ×2 (06:11→21:09)
[2024-02-04] MEDS: Methocarbamol 500 MG Tablet PO (06:13)
[2024-02-04 06:32] LABS: Hematocrit 26.8 % (40-54); Hemoglobin 8.3 g/dL (13.0-16.5)
[2024-02-04 06:39] LABS: Anion Gap 6 (5-15); BUN 49 mg/dL (7-18); BUN/Creat Ratio 19.5 RATIO (10-20); Calcium,Total 8.4 mg/dL (8.5-10.1); Chloride 106 mmol/L (98-107); Creatinine, Serum 2.51 mg/dL (0.70-1.30); EST Glomerular Filtration Rate 26 mL/min (>60); Est Glom Filt Rate - Afr Amer 31 mL/min (>60); Estimated Creatinine Clearance 26.08 ml/min; Glucose 92 mg/dL (74-106); Potassium 4.3 mmol/L (3.5-5.1); Sodium Level 136 mmol/L (136-145)
[2024-02-04] MEDS: Ondansetron ODT 4 MG Tablet PO (07:58)
--- NOTE | 2024-02-04 08:59 | NURSING ---
Addendum entered by Olamide Ashish Herman 02/04/24 12:59: dr stephenson notified, new order xray rt hip and start IVF d5.45 NS @ 60cc/hr. Original Note: CALLED TO PT ROOM. PT THROWING UP BREAKFAST. PT STATED HE WAS NAUSEATED AND COULDN'T GET FOOD DOWN,IT GETS STUCK HALF WAY DOWN. SPEECH THERAPY SEEN PT, NEW ORDERS AND .FRIEND SEEN PT AND WILL DO UP SCOPE ON TUESDAY. GAVE PT PRN ZOFRAN. WILL CONTINUE TO MONITOR. PT ALSO COMPLAINING OF ALOT OF RT HIP PAIN AND CAN HARDLY STAND ON LEG. WILL ASK FOR XRAY OF RT HIP.
[2024-02-04] MEDS: Menthol/Lanolin/Calamine/Znox 113 GM Tube 1 APPLIC TOPICAL ×2 (10:10→21:11)
[2024-02-04] MEDS: Senna/Docusate Sodium 1 Tablet 2 TABLET PO ×2 (10:12→21:15)
[2024-02-04] MEDS: Carvedilol 25 MG Tablet PO (10:12)
[2024-02-04] MEDS: Amiodarone 200 MG Tablet PO (10:12)
[2024-02-04] MEDS: Furosemide 20 MG Tablet PO (10:12)
[2024-02-04] MEDS: Pantoprazole Sodium 20 MG Tablet PO (10:13)
[2024-02-04] MEDS: Loratadine 10 MG Tablet PO (10:13)
[2024-02-04 10:21] VITALS: BP 102/50; PULSE 61
[2024-02-04] MEDS: Petrolatum 33% Tube 1 APPLIC TOPICAL ×2 (10:27→21:15)
[2024-02-04] MEDS: Dext 5%-0.45% NS 1,000 ML 60 ML IV (13:37)
--- NOTE | 2024-02-04 14:00 | RAD_ITS ---
INDICATION: s/p fall/pain EXAMINATION/TECHNIQUE: X-RAY - RIGHT XR Hip Unilateral with Pelvis when performed; 2-3 Views COMPARISON: None. FINDINGS: SOFT TISSUES: Vascular calcifications. BONES/JOINTS: No fracture or dislocation. Moderate degenerative changes of the hips, right greater than left. No erosive changes. RAD/HIP, UNI W/ Pelvis 2-3 Views IMPRESSION: No fracture or dislocation. Electronically Signed: Tre Johnson DO at 16:03 EDT ,
--- NOTE | 2024-02-04 14:40 | NURSING ---
PT COMPLAINED OF FEELING LIKE HE HAS TO PEE BUT CANT GET IT ALL OUT. PT BLADDER SCANNED FOR 311. WILL CONTINUE TO MONITOR. RN AWARE
[2024-02-04 14:56] VITALS: BP 92/49; PULSE 93; RESP 18; TEMP 35.8; O2SAT 95
--- NOTE | 2024-02-04 18:24 | NURSING ---
GAVE PT A CUP OF BEEF BROTH. PT WAS ABLE TO KEEP IT DOWN. BLADDER SCANNED PT FOR 136.
[2024-02-04] MEDS: traZODone 50 MG Tablet PO (21:14)
[2024-02-04] MEDS: Simvastatin 20 MG Tablet PO (21:16)
[2024-02-05] MEDS: Dext 5%-0.45% NS 1,000 ML 60 ML IV (05:45)
[2024-02-05] MEDS: Acetaminophen 500 MG Tablet 1000 MG PO ×3 (05:47→22:12)
[2024-02-05 06:53] LABS: Anion Gap 5 (5-15); BUN 47 mg/dL (7-18); Calcium,Total 8.6 mg/dL (8.5-10.1); Chloride 106 mmol/L (98-107); Creatinine, Serum 2.61 mg/dL (0.70-1.30); EST Glomerular Filtration Rate 25 mL/min (>60); Est Glom Filt Rate - Afr Amer 30 mL/min (>60); Estimated Creatinine Clearance 25.08 ml/min; Glucose 101 mg/dL (74-106); Potassium 4.1 mmol/L (3.5-5.1); Sodium Level 136 mmol/L (136-145)
[2024-02-05] MEDS: Menthol/Lanolin/Calamine/Znox 113 GM Tube 1 APPLIC TOPICAL ×2 (09:01→22:11)
--- NOTE | 2024-02-05 09:07 | NURSING ---
DUE TO LOW BP,PER HOLD MORNING DOSE LASIX, COREG AND CORDARONE. RN AWARE
[2024-02-05] MEDS: Senna/Docusate Sodium 1 Tablet 2 TABLET PO ×2 (09:08→22:12)
[2024-02-05] MEDS: Pantoprazole Sodium 20 MG Tablet PO (09:09)
[2024-02-05] MEDS: Petrolatum 33% Tube 1 APPLIC TOPICAL ×2 (09:10→22:12)
[2024-02-05 09:13] VITALS: BP 86/54; PULSE 67
--- NOTE | 2024-02-05 10:27 | NURSING ---
FLUIDS INCREASED TO 75 ML/HR PER NEW ORDER FROM . RN AWARE
--- NOTE | 2024-02-05 11:23 | NURSING ---
Addendum entered by Jose Graves 02/05/24 11:25: ON 02/06/24 Original Note: PT SON PEG WANTS TO BE CALLED SOON WE KNOW WHEN PT IS GOING DOWN FOR HIS UPPER SCOPE WITH .
[2024-02-05 14:09] VITALS: BP 100/59; PULSE 61; RESP 16; TEMP 36.4; O2SAT 94
[2024-02-05] MEDS: oxyCODONE 5 MG Tablet PO ×2 (17:54→22:16)
[2024-02-05] MEDS: Dext 5%-0.45% NS 1,000 ML 75 ML IV (20:17)
[2024-02-05] MEDS: Carvedilol 25 MG Tablet PO (22:11)
[2024-02-05] MEDS: traZODone 50 MG Tablet PO (22:11)
[2024-02-05] MEDS: Simvastatin 20 MG Tablet PO (22:13)
[2024-02-05] MEDS: Ondansetron ODT 4 MG Tablet PO (22:47)
[2024-02-06] MEDS: oxyCODONE 5 MG Tablet PO ×3 (02:36→21:47)
[2024-02-06] MEDS: Acetaminophen 500 MG Tablet 1000 MG PO ×3 (05:31→21:48)
[2024-02-06 06:57] LABS: Prothrombin Time (Protime)PT. 48.9 SECONDS (11.7-14.9)
[2024-02-06 07:10] LABS: International Normalized Ratio 5.4
--- NOTE | 2024-02-06 07:46 | NURSING ---
Addendum entered by Sandra Roman 02/06/24 08:10: Called and updated pts son, Demar. He thanked me for update, states he will be in later today to visit pt. Original Note: Pt's INR 5.[address] Richardson placed warfarin on hold and PT/INR scheduled daily through 02/10. Dr. Zhang notified via secure messaging, states will not proceed with scheduled EGD today, possibly tomorrow. Will notify pt's son.
[2024-02-06 07:50] VITALS: O2SAT 92
[2024-02-06] MEDS: Dext 5%-0.45% NS 1,000 ML 75 ML IV ×2 (09:47→23:13)
[2024-02-06 09:48] VITALS: BP 115/61; PULSE 61; RESP 18; TEMP 36.1; O2SAT 94
[2024-02-06] MEDS: Petrolatum 33% Tube 1 APPLIC TOPICAL ×2 (09:50→21:46)
[2024-02-06] MEDS: Senna/Docusate Sodium 1 Tablet 2 TABLET PO (09:51)
[2024-02-06] MEDS: Loratadine 10 MG Tablet PO (09:51)
[2024-02-06] MEDS: Carvedilol 25 MG Tablet PO ×2 (09:51→21:47)
[2024-02-06] MEDS: Amiodarone 200 MG Tablet PO (09:51)
[2024-02-06] MEDS: Pantoprazole Sodium 20 MG Tablet PO (09:52)
[2024-02-06] MEDS: Menthol/Lanolin/Calamine/Znox 113 GM Tube 1 APPLIC TOPICAL ×2 (09:53→21:46)
[2024-02-06] MEDS: Ondansetron ODT 4 MG Tablet PO (14:23)
--- NOTE | 2024-02-06 15:46 | CHAPLAIN ---
Type of Pastoral Visit _x__ Initial Visit ___ Follow-up Visit ___ On-call Visit ___ General Patient Visit ___ Spiritual Assessment ___ Family Conference ___ Bereavement ___ Rapid Response ___ Code Blue ___ Other (describe below) Pastoral Care Referral From _x__ Patient ___ Family ___ Nurse ___ Physician ___ Cash Register Balancer ___ Battery Charger ___ Other (describe below) Sacrament/Intervention _x__ Active listening ___ Anointing ___ Worship ___ Bereavement ___ Communion ___ Nicole exploration ___ _x__ Life review ___ Prayer ___ Reconciliation ___ Sacrament of Sick _x__ Supportive presence ___ Wedding ___ Other (describe below) Pastoral Comments patient and his only sister are in the room; pt admits that he has had some frustration due to not being able to eat and having things go slow in his recovery and treatment; pt is a and discussion on his service is enjoyed by the patient; offer of supportive presence and listening ear is received; pt is not connected to a nicole community in his adult life but welcomes a prayer for his situation;
[2024-02-06 21:30] VITALS: O2SAT 96
[2024-02-06] MEDS: Simvastatin 20 MG Tablet PO (21:48)
[2024-02-06] MEDS: traZODone 50 MG Tablet PO (21:49)
[2024-02-06] MEDS: Methocarbamol 500 MG Tablet PO (21:49)
[2024-02-06 21:51] VITALS: BP 107/58; PULSE 60; O2SAT 96
[2024-02-07 06:08] LABS: Prothrombin Time (Protime)PT. 49.9 SECONDS (11.7-14.9)
[2024-02-07 06:39] LABS: International Normalized Ratio 5.6
--- NOTE | 2024-02-07 06:43 | NURSING ---
Lab called w/ INR result of 5.6 this am. Secure Backline message sent to Dr. Richardson who acknowledged order.
[2024-02-07 07:00] VITALS: O2SAT 93
[2024-02-07] MEDS: Acetaminophen 500 MG Tablet 1000 MG PO ×3 (07:02→20:25)
[2024-02-07] MEDS: oxyCODONE 5 MG Tablet PO ×3 (07:03→20:30)
[2024-02-07] MEDS: Methocarbamol 500 MG Tablet PO ×2 (07:03→20:29)
[2024-02-07 07:29] VITALS: BMI 28.4
[2024-02-07 08:12] VITALS: BP 94/63; PULSE 73; RESP 16; TEMP 36.4; O2SAT 3
[2024-02-07] MEDS: Pantoprazole Sodium 20 MG Tablet PO (08:15)
[2024-02-07] MEDS: Carvedilol 25 MG Tablet PO ×2 (08:16→20:29)
[2024-02-07] MEDS: Amiodarone 200 MG Tablet PO (08:16)
[2024-02-07] MEDS: Furosemide 20 MG Tablet PO (08:16)
[2024-02-07] MEDS: Menthol/Lanolin/Calamine/Znox 113 GM Tube 1 APPLIC TOPICAL ×2 (08:16→20:24)
[2024-02-07] MEDS: Petrolatum 33% Tube 1 APPLIC TOPICAL ×2 (08:20→20:24)
[2024-02-07] MEDS: Phytonadione (Vit K) 10 MG in 0.9% Normal Saline (50mL Bag) 50 ML 150 MG IV ×2 (10:49→18:02)
[2024-02-07] MEDS: 0.9% Saline Lock 10 ML Syringe IV (14:01)
[2024-02-07] MEDS: Dext 5%-0.45% NS 1,000 ML 75 ML IV (14:01)
[2024-02-07 14:51] LABS: International Normalized Ratio 2.4; Prothrombin Time (Protime)PT. 25.9 SECONDS (11.7-14.9)
--- NOTE | 2024-02-07 15:38 | CASEMGMT ---
Social Work SW conducted BIMS () and PHQ-9 () completed for MDS assessment. SW explored positive responses and pt contributes decline in mood and other symptoms d/t medical decline. Pt reports to pain, having emesis' and feeling fatigued since hospitalization. SW empathized with pt and provided verbal support. pt is forward thinking and optimistic with recovery with ongoing therapy and medical care during stay. SW offered ongoing support visits as pt needs. Betty Burrell, [employer] SURFACE HEATER OPERATOR BUSINESS DEVELOPMENT OFFICER
[2024-02-07] MEDS: traZODone 50 MG Tablet PO (20:27)
[2024-02-07] MEDS: Simvastatin 20 MG Tablet PO (20:28)
[2024-02-07 20:31] VITALS: BP 108/55; PULSE 61; O2SAT 96
[2024-02-07 23:08] LABS: International Normalized Ratio 1.5; Prothrombin Time (Protime)PT. 18.4 SECONDS (11.7-14.9)
[2024-02-08] MEDS: oxyCODONE 5 MG Tablet PO ×3 (03:32→20:11)
[2024-02-08] MEDS: Dext 5%-0.45% NS 1,000 ML 75 ML IV ×2 (04:56→21:54)
--- NOTE | 2024-02-08 04:58 | NURSING ---
Offered dose of scheduled Tylenol at this time and resident declines. Will continue to monitor.
[2024-02-08 06:00] VITALS: BP 100/53; PULSE 68; RESP 15; TEMP 36.6; O2SAT 93; BMI 28.4
[2024-02-08 06:02] LABS: Absolute Lymphocyte Count 1.49 X10^3/uL (0.83-4.51); Absolute Neutrophil Count 2.8 X10^3/uL (2.0-7.7); Basophil# 0.05 X10^3/uL; Eosinophil# 0.23 X10^3/uL; Eosinophils% 4.5 % (0-5); Hematocrit 26.1 % (40-54); Hemoglobin 8.1 g/dL (13.0-16.5); Lymphocyte # 1.49 X10^3/ul (0.83-4.51); Lymphocyte % 29.2 % (19-41); Mean Corpuscular Hgb 31.3 pg (27.0-32.0); Mean Corpuscular Volume 100.8 fL (80-94); Mean Platelet Vol. 10.1 fl (6.2-12.0); Monocyte# 0.42 X10^3/uL; Monocyte% 8.2 % (0-10); NRBC Flagged by Analyzer 0 % (0-5); Neutrophil # 2.84 X10^3/uL (2.7-7.7); Neutrophil % 55.5 % (47-70); Platelet Count 305 K/mm3 (150-450); RBC Distribution Width SD 51.5 fl (35.1-43.9); Red Blood Count 2.59 M/mm3 (4.6-6.2); White Blood Count 5.1 K/mm3 (4.4-11.0)
[2024-02-08 06:13] LABS: International Normalized Ratio 1.4; Prothrombin Time (Protime)PT. 16.9 SECONDS (11.7-14.9)
[2024-02-08] MEDS: Acetaminophen 500 MG Tablet 1000 MG PO ×3 (06:19→20:11)
[2024-02-08 06:28] LABS: Anion Gap 5 (5-15); BUN 34 mg/dL (7-18); BUN/Creat Ratio 14.7 RATIO (10-20); Calcium,Total 8.1 mg/dL (8.5-10.1); Chloride 109 mmol/L (98-107); Creatinine, Serum 2.32 mg/dL (0.70-1.30); EST Glomerular Filtration Rate 28 mL/min (>60); Est Glom Filt Rate - Afr Amer 34 mL/min (>60); Estimated Creatinine Clearance 28.08 ml/min; Glucose 100 mg/dL (74-106); Potassium 3.7 mmol/L (3.5-5.1); Sodium Level 136 mmol/L (136-145)
[2024-02-08 07:10] VITALS: O2SAT 93
--- NOTE | 2024-02-08 09:08 | NURSING ---
Steam Box Tender Note; MDS for 02/07/2024 Complete
[2024-02-08] MEDS: Menthol/Lanolin/Calamine/Znox 113 GM Tube 1 APPLIC TOPICAL ×2 (09:36→20:10)
[2024-02-08] MEDS: Petrolatum 33% Tube 1 APPLIC TOPICAL ×2 (09:36→20:13)
[2024-02-08 09:40] VITALS: BP 100/53; PULSE 68; RESP 15; O2SAT 93
[2024-02-08 10:00] VITALS: O2SAT 92
--- NOTE | 2024-02-08 10:22 | CASEMGMT ---
Social Work IDT met with patient and son for care plan meeting. Discussed patient's progress in PT/OT/ST/SN. [facility] and continued stay is not guaranteed with each review. SW provided pt/family with written communication on insurance process and copay coverage during stay. Son stated his son is a physical therapist and would like pt to return home with family to get continued care. Pt is wanting to return to his home. SW educated to nonskilled HHC option vs SNF/AL and financial liability. SW provided son with CAR DELIVERER resources. Son stated pt does not want to go to another facility and is pleased with pts progress thus far, despite medical concerns. SW will continue to follow for DC planning. NEVIN BardalesW
--- NOTE | 2024-02-08 13:10 | HP.PCM_ITS ---
History and Physical Date of Admission: 02/08/24 Reason for Consultation: Dysphagia and aspiration HPI Narrative: PEG BAEZ, is a 88 M who is currently in TCU. The patient was diagnosed with rhabdomyolysis after patient fell in the tub and was found several days later by family member. He sustained multiple rib fractures. He has been doing well except for some mild anemia. As per the patient he has been having trouble swallowing. He says at home he can feel things get stuck and subsequently he able to get it up without liquids or he vomits it up. He underwent a recent video swallow by speech therapy and it showed significant dilation of the esophagus with distal thickening around the lower esophageal sphincter and aspiration of liquids into his oropharynx. I was consulted for management of esophageal dysphagia with aspiration. [facility] Medical History (Updated 02/03/24 @ 17:[address] Quach Friend, DO) Ventricular tachycardia (paroxysmal) (03/2021) Non-ischemic cardiomyopathy History of non-ST elevation myocardial infarction (NSTEMI) (01/26/17) Arthritis Type 2 diabetes mellitus Old myocardial infarction Chronic systolic (congestive) heart failure Essential (primary) hypertension Paroxysmal atrial fibrillation Aortic valve calcification Atrioventricular block, Mobitz type 2 Atrioventricular block, complete Hyperlipidemia Chronic renal disease, stage 3, moderately decreased glomerular filtration rate between 30-59 mL/min/1.73 square meter Tachy-mary syndrome Home Medications ?Medication ?Instructions ?Recorded ?Last Taken ?Type cyanocobalamin (vitamin B-12) 1,000 mcg sublingual DAILY 01/24/17 01/24/17 History 1,000 mcg sublingual tablet supplement omeprazole 20 mg capsule,delayed 20 mg PO DAILY acid reflux 01/24/17 01/31/24 History release simvastatin 20 mg tablet 20 mg PO QHS cholesterol lowering 01/24/17 01/23/17 History carvedilol 25 mg tablet 25 mg PO BID Heart 06/14/19 01/31/24 History warfarin 5 mg tablet (Coumadin) 2.5 mg PO TUWEFR Anticoagulant 04/21/20 Unknown History loratadine 10 mg tablet 10 mg PO DAILY Allergies 08/28/20 01/31/24 History acetaminophen 500 mg tablet 500 mg PO Q8H PRN pain (scale 03/02/21 Unknown History (Tylenol Extra Strength) score 1-3) losartan 50 mg tablet 50 mg PO DAILY Blood pressure 30 03/02/21 01/31/24 History days #30 tabs polyethylene glycol 3350 17 17 g PO DAILY PRN constipation 03/02/21 01/31/24 History gram/dose oral powder (Miralax) torsemide 5 mg tablet 2.5 mg PO DAILY PRN Edema, weight 03/02/21 Unknown History gain azelastine 137 mcg (0.1 %) nasal 1 spray intranasal Q12H 01/23/24 Unknown History spray trazodone 50 mg tablet 50 mg PO QHS sleep 01/23/24 Unknown History amiodarone 200 mg tablet 200 mg PO DAILY Blood pressure 01/31/24 01/31/24 History bisacodyl 10 mg rectal suppository 10 mg [place] DAILY PRN constipation 01/31/24 Unknown History docusate sodium 100 mg capsule 100 mg PO BID Constipation 01/31/24 Unknown History (Colace) melatonin 3 mg tablet 3 mg PO QHS PRN Sleep 01/31/24 Unknown History methocarbamol 500 mg tablet 500 mg PO Q8H PRN Muscle spasms 01/31/24 Unknown History ondansetron 4 mg disintegrating 4 mg PO Q8H PRN nausea 01/31/24 Unknown History tablet oxycodone 5 mg tablet 2.5 mg PO Q6H PRN Pain 4-6 01/31/24 Unknown History sennosides 8.6 mg tablet (senna) 8.6 mg PO QHS Constipation 01/31/24 Unknown History warfarin 1 mg tablet 1 mg PO .COMPLEX Anticoagulant 01/31/24 Unknown History Allergy/AdvReac Type Severity Reaction Status Date / Time lisinopril Allergy Severe rash Verified 01/02/24 10:52 amlodipine Allergy Intermediate Rash Verified 01/02/24 10:52 atorvastatin (From Lipitor) Allergy Unknown Verified 01/02/24 10:52 doxazosin Allergy Unknown Verified 01/02/24 10:52 hydrochlorothiazide Allergy Unknown Verified 01/02/24 10:52 niacin (From Niaspan Allergy Unknown Verified 01/02/24 10:52 Extended-Release) propranolol (From Inderal LA) Allergy Unknown Verified 01/02/24 10:52 quinine Allergy Unknown Verified 01/02/24 10:52 tamsulosin (From Flomax) Allergy Unknown Verified 01/02/24 10:52 verapamil (From Calan) Allergy Unknown Verified 01/02/24 10:52 Family History Father CAD (coronary artery disease)Brother CAD (coronary artery disease) Surgical History Hx of colonoscopy History of esophagogastroduodenoscopy (EGD) History of open reduction and internal fixation (ORIF) procedure History of loop recorder Cardiac pacemaker in situ (01/26/17) Social History (Updated 01/31/24 @ 21:[address] Wagner Richardson MD) household members: none Smoking Status: Former smoker how long ago did patient quit smokin alcohol intake: current alcohol intake frequency: a few times a week Alcohol type: hard liquor substance use type: does not use caffeine: Yes Type: coffee Number of servings: 3 what type of physical activity do you participate in: none seatbelt use: always do you feel safe at home: Yes ROS Constitutional Constitutional: Reports weakness; Denies chills, fever(s) or weight gain ENT HEENT: Denies headache(s), nasal congestion or nasal discharge Cardiovascular Cardiovascular: Denies chest pain or palpitations Respiratory/Chest Respiratory/Chest: Denies cough, excessive phlegm production or shortness of breath with exertion Gastrointestinal Gastrointestinal: Denies abdominal pain, nausea or vomiting Genitourinary Genitourinary: Denies dysuria Musculoskeletal Musculoskeletal: Denies joint pain or joint swelling Integumentary Integumentary: Denies rash or wounds Neurologic Neurologic: Denies focal weakness, numbness or tingling Psychiatric Psychiatric: Denies anxiety, auditory hallucinations, depression, homicidal ideation or suicidal ideation Physical Exam Const alert General Appearance: cooperative HEENT normocephalic Eyes PERRL and EOMs intact bilaterally Neck supple, no JVD and no carotid bruits Resp normal respiratory effort, normal air movement and clear to auscultation bilaterally Cardio regular rate and regular rhythm GI normal to inspection, nondistended, normoactive bowel sounds, non-tender and non-distended Extremity normal capillary refill General Extremity: Negative for edema Skin no rashes or lesions noted General Skin Exam: no breakdown Psych affect normal Appearance: appropriate Lab / Micro Data 02/02/24 05:12 02/03/24 04:57 Labs: Laboratory Results - last 24 hr 02/03/24 04:57: Sodium 135 L, Potassium 4.8, Chloride 107, Carbon Dioxide 24.0, Anion Gap 4 L, BUN 51 H, Creatinine 2.48 H, Estim Creat Clear Calc 26.40, Est GFR (MDRD) Af Amer 32 L, Est GFR (MDRD) Non-Af 26 L, BUN/Creatinine Ratio 20.6 H , Glucose 93, Calcium 8.6 Assessment & Plan Assessment/Plan (1) Dysphagia: (2) Aspiration into airway: PLAN: Plan 88-year-old with multiple comorbidities and recent multiple rib fractures and the development of rhabdomyolysis. He has also history of tachybradycardia syndrome, AV block, paroxysmal atrial fibrillation on anticoagulation status post permanent pacemaker in 2017. He is currently in the TCU and has been determined to have aspiration and esophageal dysphagia. After looking at the images it looks like an appropriate esophageal motility of the lower esophageal sphincter versus achalasia. He will undergo an upper endoscopy on 02/06/2024. Okay with him being a liquid diet for now. Risk and benefits were explained to the patient. I have examined the patient and the H&P has been reviewed. There are no clinical changes since date of exam.
--- NOTE | 2024-02-08 14:00 | WOUNDNOTE ---
Pt off unit at this time.
[2024-02-08] MEDS: Amiodarone 200 MG Tablet PO (14:45)
[2024-02-08] MEDS: Carvedilol 25 MG Tablet PO ×2 (14:45→20:16)
[2024-02-08] MEDS: Pantoprazole Sodium 20 MG Tablet PO (14:45)
[2024-02-08] MEDS: Furosemide 20 MG Tablet PO (14:45)
[2024-02-08] MEDS: 0.9% Saline Lock 10 ML Syringe IV (14:50)
[2024-02-08] MEDS: Tuberculin,Purif.prot.deriv. 50 TU/ML Vial 0.1 ML ID (14:56)
[2024-02-08] MEDS: Ensure Plus High Protein 120 ML LIQUID PO (16:43)
[2024-02-08] MEDS: traZODone 50 MG Tablet PO (20:11)
[2024-02-08] MEDS: Simvastatin 20 MG Tablet PO (20:12)
[2024-02-08] MEDS: MELATONIN 3 MG TABLET PO (20:12)
[2024-02-08] MEDS: Nystatin 500,000 UNIT/5 ML PO.SYRINGE (WCH) 500000 UNIT PO (20:13)
[2024-02-09] MEDS: oxyCODONE 5 MG Tablet PO (05:28)
[2024-02-09] MEDS: Acetaminophen 500 MG Tablet 1000 MG PO (05:29)
[2024-02-09] MEDS: Nystatin 500,000 UNIT/5 ML PO.SYRINGE (WCH) 500000 UNIT PO ×3 (05:29→18:03)
[2024-02-09 06:08] LABS: International Normalized Ratio 1.3; Prothrombin Time (Protime)PT. 16.5 SECONDS (11.7-14.9)
[2024-02-09] MEDS: Metoclopramide 5 MG TABLET PO ×2 (07:02→11:21)
[2024-02-09] MEDS: Menthol/Lanolin/Calamine/Znox 113 GM Tube 1 APPLIC TOPICAL (09:03)
[2024-02-09] MEDS: Amiodarone 200 MG Tablet PO (09:04)
[2024-02-09] MEDS: Carvedilol 25 MG Tablet PO (09:04)
[2024-02-09] MEDS: Pantoprazole Sodium 20 MG Tablet PO (09:05)
[2024-02-09] MEDS: Furosemide 20 MG Tablet PO (09:05)
[2024-02-09] MEDS: Petrolatum 33% Tube 1 APPLIC TOPICAL (09:06)
[2024-02-09 09:16] VITALS: BP 110/60; PULSE 60
[2024-02-09] MEDS: Dext 5%-0.45% NS 1,000 ML 75 ML IV (11:19)
--- NOTE | 2024-02-09 11:22 | NURSING ---
Updated that another patient and a staff member tested positive for covid. Patient does not want family updated.
--- NOTE | 2024-02-09 11:27 | NURSING ---
Updated that a patient and a staff member tested covid positive. Updated son Demar by phone.
--- NOTE | 2024-02-09 12:13 | NURSING ---
Addendum entered by Stephanie Short 02/09/24 13:11: Received approval for CT chest and CT abd/pelvis, case #s [id number], [id number]. Approval numbers [id number], [id number]. Faxed order to CT. Addendum entered by Stephanie Short 02/09/24 12:47: Azithromycin interacts with coumadin and amiodarone, updated Dr. Zhang, order to DC. Addendum entered by Stephanie Shotr 02/09/24 12:40: Updated patient. Attempted to updated son, left VM requesting return call. Original Note: Updated Dr. Zhang that patient continuing to vomit after dinner last night and this morning. Patient describes it as everything getting stuck after he swallows then it either goes down or comes back up. Dr. Zhang gave verbal orders to give 10mg reglan IV q6 hrs, 500mg IV azithromycin, and to do chest/abdomen/pelvis CT with oral contrast.
--- NOTE | 2024-02-09 13:19 | NURSING ---
PT CONTINUES TO BRING UP FOOD AND FLUID AFTER MEALS. AND AWARE. NEW ORDERS
--- NOTE | 2024-02-09 14:24 | NURSING ---
PT CAN NOT KEEP ORAL CONTRAST DOWN. NOTIFIED AND STATED GIVE IV CONTRAST. CALLED CT TO SEE IF APPROVAL WAS NEEDED AGAIN FOR IV CONTRAST. CT STATED NO. CT ALSO CALLED TO SEE IF WE COULD GIVE 500 ML BOLUS OF NS DUE TO PT HAVING CHF AND EDEMA. PER CT STATED IT WOULD BE FINE TO GIVE SINCE PT CANT KEEP ANY THING DOWN AND DEHYDRATED. RN AWARE AND ORDERS IN.
[2024-02-09] MEDS: 0.9% Normal Saline (500mL Bag) 500 ML IV (14:34)
[2024-02-09 15:04] VITALS: BP 85/41; PULSE 60; RESP 13; TEMP 36; O2SAT 96
--- NOTE | 2024-02-09 15:06 | WOUNDNOTE ---
wound photo: left heel
--- NOTE | 2024-02-09 15:20 | NURSING ---
PT LEFT FLOOR BY BED TO CT AT 1515.
--- NOTE | 2024-02-09 15:48 | NURSING ---
PT RETURNED TO FLOOR BY BED FROM A CT AT 1540.
--- NOTE | 2024-02-09 17:51 | NURSING ---
PT TRYING TO EAT ICE CREAM AND PUDDING. PT THREW UP BOTH. GAVE BEEF BROTH TO PT TO TRY. WILL CONTINUE TO MONITOR.
[2024-02-09] MEDS: Metoclopramide 10 MG/2 ML Vial 5 MG IV (18:14)
--- NOTE | 2024-02-09 19:19 | NURSING ---
Dr Zhang notified of CT scan results, order to send pt to ER.
--- NOTE | 2024-02-09 19:23 | NURSING ---
pt son notified, ER will return call with bed
--- NOTE | 2024-02-09 19:30 | NURSING ---
pt off unit to ER via bed, oxygen continues
--- NOTE | 2024-02-10 07:42 | DS.PCM_ITS ---
Providers Date of Admission: 01/31/24 Primary Care Physician: KERRIE Mas Consultations 01/31/24 17:13 Consult: Onc/Wound/controller repairer and tester Routine Comment: Reason for Consult:: Several wounds, unstageable DTI left heel 02/03/24 13:15 Consult: Gastroenterology Routine Consulting Provider: [facility] Reason for Consult: esophageal retention observed in the upper/mid esophagus with liquids EMERGENT Consult: No MD Notified: Yes Date Notified: 02/03/24 Time Notified: 13:15 Method of Notification: Text Comments:: Dr. Zhang completed consult on 02/02 Reason For Visit: RHABDOMYOLYSIS DIBILITY Diagnosis Discharge Diagnosis (1) Dysphagia: Status: Acute Code(s): R13.10 - Dysphagia, unspecified (2) Aspiration into airway: Status: Acute Code(s): T17.908A - Unspecified foreign body in respiratory tract, part unspecified causing other injury, initial encounter Plan 88 year old male with below past medical history hospitalized for fall, rib fractures, rhabdomyolysis, complicated by hypotension, admitted to TCU with debility, here for rehabilitation, strengthening, prior to discharge home alone. * Debility - PT/OT. * Pain - Tylenol 1000mg q8, Oxycodone 2.5mg q4 prn pain (4-10). * Bowel - senna/colace 2 tablets bid, Dulcolax 10mg pr daily prn, Miralax 17gm daily prn. * Adult immunization - Administer pneumonia vaccine, covid vaccine, flu vaccine as appropriate. * DVT prophylaxis - on warfarin. * Atrial fibrillation - Coreg 25mg bid, Amiodarone 200mg daily, Warfarin 1mg/2.5mg alternating, follow inr. * Coronary artery disease - Coreg 25mg bid, Losartan 50mg daily, warfarin 1mg/2.5mg alternating, follow inr. * Chronic HFrEF - Coreg 25mg bid, Losartan 50mg daily, Furosemide 5mg daily prn. * Allergic rhinitis - Loratadine 10mg q48. * Insomnia - Melatonin 3mg qhs prn. * Muscle spasm - Robaxin 500mg q8 prn. * Nausea - Zofran odt 4mg q8 prn. * GERD - Pantoprazole 20mg daily. * Hyperlipidemia - Simvastatin 20mg qhs. 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 Medications at Discharge Home Medications simvastatin 20 mg tablet 20 mg PO QHS cholesterol lowering 01/24/17 carvedilol 25 mg tablet 25 mg PO BID Heart 06/14/19 warfarin 5 mg tablet (Coumadin) 2.5 mg PO TUWEFR Anticoagulant 04/21/20 loratadine 10 mg tablet 10 mg PO DAILY Allergies 08/28/20 acetaminophen 500 mg tablet (Tylenol Extra Strength) 500 mg PO Q8H PRN pain (scale score 1-3) 03/02/21 polyethylene glycol 3350 17 gram/dose oral powder (Miralax) 17 g PO DAILY PRN constipation 03/02/21 trazodone 50 mg tablet 50 mg PO QHS sleep 01/23/24 amiodarone 200 mg tablet 200 mg PO DAILY Blood pressure 01/31/24 bisacodyl 10 mg rectal suppository 10 mg MO DAILY PRN constipation 01/31/24 melatonin 3 mg tablet 3 mg PO QHS PRN Sleep 01/31/24 methocarbamol 500 mg tablet 500 mg PO Q8H PRN Muscle spasms 01/31/24 ondansetron 4 mg disintegrating tablet 4 mg PO Q8H PRN nausea 01/31/24 oxycodone 5 mg tablet 5 mg PO Q4H PRN Pain 4-6 01/31/24 warfarin 1 mg tablet 1 mg PO .COMPLEX Anticoagulant 01/31/24 furosemide 20 mg tablet (Lasix) 20 mg PO DAILY diuretic 02/09/24 metoclopramide HCl 5 mg tablet (Reglan) 5 mg PO .tidac nausea 02/09/24 nystatin 100,000 unit/mL oral suspension 500,000 unit PO Q6H thrush 02/09/24 pantoprazole 20 mg tablet,delayed release (Protonix) 20 mg PO DAILY GERD 02/09/24 sennosides 8.6 mg tablet (Senokot) 17.2 mg PO DAILY PRN constipation 02/09/24 azelastine 137 mcg (0.1 %) nasal spray 1 spray intranasal BID PRN allergies 02/10/24 losartan 50 mg tablet 50 mg PO DAILY BP 02/10/24 omeprazole 20 mg capsule,delayed release 20 mg PO DAILY GERD 02/10/24 spironolactone 25 mg tablet 12.5 mg PO DAILY BP 02/10/24 torsemide 5 mg tablet 2.5 - 5 mg PO PRN PRN swelling 02/10/24 Hospital Course Operations None Procedures EGD Summary of Care Provided Minutes Spent on Discharge: 15 Hospital Course: 88 year old male with below past medical history hospitalized for fall, rib fractures, rhabdomyolysis, complicated by hypotension, admitted to TCU with debility, here for rehabilitation, strengthening, prior to discharge home alone. 02/03/2024 MBS: Notable retention of contrast material in the upper and mid-esophagus following few sips of thin liquids suggestive of esophageal motility issues or obstruction. Retrograde flow of contrast through the Upper Esophageal Sphincter (UES) observed after ingestion of a bite of cookie which almost spilled into the laryngeal vestibule. Observed reflux of contrast material nearly spilling into the airway which indicates a significant risk for aspiration. The reflux reaching the airway suggests compromised airway protection and potential aspiration risk. 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 Recommending GI referral. 02/08/2024 Dr. Zhang EGD: Impressions : - Tortuous esophagus. - Benign-appearing esophageal stenosis. Dilated. Biopsied. - Abnormal esophageal motility, suspicious for achalasia. - Large hiatal hernia. - Excessive gastric fluid. Fluid aspiration performed. - No gross lesions in the first portion of the duodenum. 02/09/2024 Resident vomiting ice cream and pudding, not tolerating PO. 02/09/2024 CT chest/abdomen/pelvis: IMPRESSION: 1. Bilateral pleural effusions. Bilateral compressive atelectasis of the lower lobes. On the right, findings are stable. On the left, findings are significantly worse. 2. Abnormal distended fluid-filled esophagus which appears to have probable partial functional obstruction related to a moderately large hiatal hernia. Findings worse than prior study. 3. Marked distention of the gallbladder without definite stones. 4. Bilateral cortical thinning of the kidneys with scarring. No hydronephrosis or stones. Discharge to [facility] ED 02/09/2024 for evaluation and admission for esophageal obstruction. Weight / BMI Weight Weight: 103.192 kg Body Mass Index (BMI) 28.4 ABG / Lab / Microbiology Data 02/08/24 05:10 02/08/24 05:10 Microbiology: Microbiology 02/09/24 Unknown Nasal Secretion SARS-CoV-2 Antigen (Rapid) - Final 02/02/24 05:36 Nasal Secretion SARS-CoV-2 Antigen (Rapid) - Final D/C Instructions Discharge Activity: Return to Normal Activity, May Shower and Use Walker Weight Bearing Status: Weight bearing as tolerated Call your doctor if you observe: Fever of 101 or Higher, Inability to urinate, Inability to have a bowel movement, Shortness of breath, Dizziness, Fainting spells, Swelling in the ankles, Chest pain and Uncontrolled pain Additional Instructions: Discharge to [facility] ED 02/09/2024 for evaluation and admission for esophageal obstruction. Please Follow Up With: [facility] Meaningful Use Info Meaningful Use Meaningful Use Diagnoses (Choose all that apply): None applicable Ischemic Stroke Statin Dosing Therapy Reference: STATIN DOSE THERAPY REFERENCE: * Patients > 75 years receive moderate or high dose statin therapy. * Patients 75 years or YOUNGER should receive HIGH intensity statin dose unless contraindicated. You will be required to document reason for non-treatment if statin daily dose does not meet guidelines. HIGH DOSE STATIN THERAPY DAILY Atorvastatin > than or = to 40 mg Rosuvastatin > than or = to 20 mg Amlodipine + Atorvastatin > than or = to 2.5/40 mg Ezetimibe + Simvastatin 10/80 mg Simvastatin 80mg Discharge Plan Admission Admit Date/Time: 01/31/24 15:44 Primary Reason for Your Visit: Multiple Trauma Attending Provider: Wagner Richardson Chi Primary Care Provider: Ian Hathaway Instructions Additional Instructions / Restrictions: Discharge to [facility] ED 02/09/2024 for evaluation and admission for esophageal obstruction. Discharge Orders/Prescriptions Prescriptions: No Action carvedilol 25 mg tablet 25 mg PO BID loratadine 10 mg tablet 10 mg PO DAILY Patient Comments: TAKE 1 TABLET BY MOUTH ONCE DAILY polyethylene glycol 3350 [Miralax] 17 gram/dose powder 17 g PO DAILY PRN (Reason: constipation) acetaminophen [Tylenol Extra Strength] 500 mg tablet 500 mg PO Q8H PRN (Reason: pain (scale score 1-3)) simvastatin 20 MG tablet 20 mg PO QHS warfarin [Coumadin] 5 mg tablet 2.5 mg PO Protocol: Dose Management Condition: Tuesday Dose/Route: 1 mg Instruction: 1 x 1 mg tablet Condition: Tuesday Dose/Route: 1 mg Instruction: 1 x 1 mg tablet Condition: Tuesday Dose/Route: 2.5 mg Instruction: 0.5 x 5 mg tablets Condition: Tuesday Dose/Route: 2.5 mg Instruction: 0.5 x 5 mg tablets Condition: Dose/Route: 1 mg Instruction: 1 x 1 mg tablet Condition: Tuesday Dose/Route: 2.5 mg Instruction: 0.5 x 5 mg tablets Condition: Tuesday Dose/Route: 1 mg Instruction: 1 x 1 mg tablet Protocol Text: Adjustment Start Date: Tuesday01/16/24 INR Value: 3.1 INR Date: 01/16/24 Recheck Date: 01/30/24 bisacodyl 10 mg suppository 10 mg MO DAILY PRN (Reason: constipation) melatonin 3 mg tablet 3 mg PO QHS PRN (Reason: Sleep) methocarbamol 500 mg tablet 500 mg PO Q8H PRN (Reason: Muscle spasms) ondansetron 4 mg tablet,disintegrating 4 mg PO Q8H PRN (Reason: nausea) oxycodone 5 mg tablet 5 mg PO Q4H PRN (Reason: Pain 4-6) amiodarone 200 mg tablet 200 mg PO DAILY warfarin 1 mg tablet 1 mg PO .COMPLEX Protocol: Dose Management Condition: Tuesday Dose/Route: 1 mg Instruction: 1 x 1 mg tablet Condition: Tuesday Dose/Route: 1 mg Instruction: 1 x 1 mg tablet Condition: Tuesday Dose/Route: 2.5 mg Instruction: 0.5 x 5 mg tablets Condition: Tuesday Dose/Route: 2.5 mg Instruction: 0.5 x 5 mg tablets Condition: Dose/Route: 1 mg Instruction: 1 x 1 mg tablet Condition: Tuesday Dose/Route: 2.5 mg Instruction: 0.5 x 5 mg tablets Condition: Tuesday Dose/Route: 1 mg Instruction: 1 x 1 mg tablet Protocol Text: Adjustment Start Date: Tuesday01/16/24 INR Value: 3.1 INR Date: 01/16/24 Recheck Date: 01/30/24 Rx Instructions: 1 mg orally on , , , Tue (takes a 2.5 mg tablet all other days of the week).Needs more pills for dose modification prn; trazodone 50 mg tablet 50 mg PO QHS Patient Comments: TAKE 1 TABLET BY MOUTH ONCE DAILY AT BEDTIME NEEDED FOR SLEEP furosemide [Lasix] 20 mg tablet 20 mg PO DAILY nystatin 100,000 unit/mL suspension 500,000 unit PO Q6H Rx Instructions: administer 1/2 of dose in each side of the mouth pantoprazole [Protonix] 20 mg tablet,delayed release (DR/EC) 20 mg PO DAILY metoclopramide HCl [Reglan] 5 mg tablet 5 mg PO .tidac sennosides [Senokot] 8.6 mg tablet 17.2 mg PO DAILY PRN (Reason: constipation) azelastine 137 mcg (0.1 %) spray,non-aerosol 1 spray INTRANASAL BID PRN (Reason: allergies) losartan 50 mg tablet 50 mg PO DAILY omeprazole 20 mg capsule,delayed release(DR/EC) 20 mg PO DAILY torsemide 5 mg tablet 2.5 - 5 mg PO PRN PRN (Reason: swelling) spironolactone 25 mg tablet 12.5 mg PO DAILY Referrals / Follow Up: Ian Hathaway PA [Primary Care Provider] - Disposition Disposition (needs filled in before D/C Order can be placed): [facility]
--- NOTE | 2024-02-10 08:18 | MDS.RN ---
Information for the MDS was obtained from review of the clinical record, interview of resident, staff, and direct observation of resident?s care.
== END 2024-02-09 19:30 | disposition home or self-care (01) | DRG 560 ==
PROVIDERS: Admitting Provider Family Medicine Geriatric Medicine; PCP Physician Assistant; Referring Provider Family Medicine Geriatric Medicine; Visit Provider Family Medicine Geriatric Medicine
DX: S22.41XD Multiple fractures of ribs, right side, subsequent encounter for fracture with routine healing (principal); I50.22 Chronic systolic (congestive) heart failure; I42.8 Other cardiomyopathies; J91.8 Pleural effusion in other conditions classified elsewhere; I13.0 Hypertensive heart and chronic kidney disease with heart failure and stage 1 through stage 4 chronic kidney disease, or unspecified chronic kidney disease; N18.4 Chronic kidney disease, stage 4 (severe); K22.0 Achalasia of cardia; E11.22 Type 2 diabetes mellitus with diabetic chronic kidney disease; I48.0 Paroxysmal atrial fibrillation; K22.2 Esophageal obstruction; I25.10 Atherosclerotic heart disease of native coronary artery without angina pectoris; J30.9 Allergic rhinitis, unspecified; E78.00 Pure hypercholesterolemia, unspecified; K21.9 Gastro-esophageal reflux disease without esophagitis; E53.8 Deficiency of other specified B group vitamins; W18.2XXD Fall in (into) shower or empty bathtub, subsequent encounter; K44.9 Diaphragmatic hernia without obstruction or gangrene; T79.6XXD Traumatic ischemia of muscle, subsequent encounter; Z87.891 Personal history of nicotine dependence; G47.00 Insomnia, unspecified; Z79.899 Other long term (current) drug therapy; Z79.01 Long term (current) use of anticoagulants
CPT/HCPCS: 36415; 71046; 73502; 74230; 80048; 85014; 85018; 85025; 85610; 87811; 92523; 92526; 92610; 92611; 97110; 97129; 97130; 97162; 97166; 97530; 97535; 97802; A4216; J2405

== ENCOUNTER 2024-02-08 10:30 | Day surgery (SDC) | payer MEDICARE, SELFPAY ==
[2024-02-08] VITALS (7 sets, daily range): BP systolic 87–102; BP diastolic 42–55; PULSE 60–88; RESP 16–18; TEMP 36.1–36.6; O2SAT 95–99; BMI 28.3
[2024-02-08] MEDS: Lactated Ringers 1,000 ML 15 ML IV (11:02)
--- NOTE | 2024-02-08 11:37 | PRE.ANES_ITS ---
ASA Classification* ASA Classification ASA Classification: 3 and E Assessment & Plan Anesthesia* Anesthesia Assessment Anesthesia Assessment: Discussed sedation and/or anesthesia options, risks, benefits, and alternatives with patient/parents/legal guardian/POA. Questions invited. The patient/parents/legal guardian/POA seems to understand and agrees to proceed with anesthesia plan. Reviewed the physical assessment, medical history, allergy history and patient home medications list prior to surgery/procedure/anesthetic and documented any changes. Performed airway and anesthesia risk assessments. Anesthesia Type Anesthesia Type: MAC (see written pre anesthesia record for full assessment) Anesthesia Focused Assessment* Temperature: 97.8 F Pulse Rate: 88 Blood Pressure: 102/48 Respiratory Rate: 18 Pulse Ox: 98 Airway Assessment Mouth opens: >3 cm Mallampati Score: II Focused Labs Anesthesia Preop lab: CBC WBC 5.1 K/mm3 (4.4-11.0) 02/08/24 05:10 RBC 2.59 M/mm3 (4.6-6.2) L 02/08/24 05:10 Hgb 8.1 g/dL (13.0-16.5) L 02/08/24 05:10 Hct 26.1 % (40-54) L 02/08/24 05:10 Plt Count 305 K/mm3 (150-450) 02/08/24 05:10 CHEMISTRY Potassium 3.7 mmol/L (3.5-5.1) 02/08/24 05:10 Sodium 136 mmol/L (136-145) 02/08/24 05:10 Magnesium 1.7 mg/dL (1.6-2.6) 04/08/21 10:09 Phosphorus 3.2 mg/dL (2.5-4.9) 10/26/23 10:44 BUN 34 mg/dL (7-18) H 02/08/24 05:10 Creatinine 2.32 mg/dL (0.70-1.30) H 02/08/24 05:10 Glucose 100 mg/dL (74-106) 02/08/24 05:10 POC Glucose 120 mg/dL (70-110) H 02/06/20 07:05 TSH 1.97 uIU/mL (0.358-3.74) 01/02/24 12:07 COAG PT 16.9 SECONDS (11.7-14.9) H 02/08/24 05:10 Pre-Assessment Diagnosis/Proposed Procedure Planned Operative Procedure(s): egd Anesthesia History 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 When Was Last Pacemaker Check 12/201901/24/20 11:57 QUESTION #4 FULL TEXT: You/Your Family Experience fever (hyperthermia) with Anesthesia Last Oral Intake Last Oral intake: Last Oral Intake NPO since Meds taken in AM with sips of water? Meds patient instructed to take am of surgery PONV PONV - harbor department manager: PONV - harbor department manager Female HX of Motion Sickness HX of N/V After Surgery Non-Smoker Duration of Surgery greater than 60 minutes Number of Risk Factors PONV Score Height & Weight Height & Weight: Anesthesia: Height & Weight Height 6 ft 2 in 02/08/24 11:02 Weight: 100.244 kg 02/08/24 11:02 Body Mass Index (BMI) 28.3 02/08/24 11:02 Respiratory Assessment Respiratory Assessment - harbor department manager: Respiratory Tract Infection Hx - harbor department manager Hx Respiratory Tract Infection No 01/24/20 11:57 STOP Sleep Apnea STOP Sleep Apnea - harbor department manager: STOP Sleep Apnea - harbor department manager Hx Hypertension Yes 02/01/24 17:02 Hx Sleep Apnea No 01/31/24 15:57 CPAP No 02/06/20 08:30 BIPAP No 01/24/20 11:57 Do you snore loudly (louder than talking or can be heard Do you often feel tired/ fatigued/ sleepy during daytime? Has anyone observed you stop breathing during sleep? STOP Results QUESTION #5 FULL TEXT : Do you snore loudly (louder than talking or can be heard through closed doors)? Tobacco Use History Tobacco Use History - harbor department manager: Tobacco Use History - harbor department manager Tobacco Use Smoking Status Former smoker 01/31/24 21:53 Hx Tobacco Use No 01/31/24 15:57 Years Smoking Packs Smoked per Day Smoking Cessation Date was within the last 15 years Hx Smoking Cessation Date Hx Smoking Cessation No 01/31/24 15:57 Counseling Hematologic Medial History Hematologic Hx - harbor department manager: Hematologic Medical Hx - clinical reviewer Hx of Blood Transfusion Hx of Transfusion in last 3 Months Date of Last Transfusion (if within last 3 months) Ever experience any problems with transfusion(s)? Specify any problems Hx of Preganancy in last 3 Months Nurse Filling Out Transfusion & Questions: Date: Time: Patient unable to answer at this time (ie. confused, unrespo /Reproduction History /Reproductive History - harbor department manager: /Reproductive Hx- harbor department manager Hx Now Gestational Age (in weeks): EDC: Hx Hx Para Hx Section SAB Active Medications Active Medications: Current Medications Generic Name Dose Route Start Last Admin Trade Name Freq PRN Reason Stop Dose Admin Lactated Ringer's 1,000 mls @ 15 mls/hr 02/08/24 11:00 02/08/24 11:02 IV 15 mls/hr .Q48H TRI Administration PFSH Medical History Ventricular tachycardia (paroxysmal) (03/2021) Non-ischemic cardiomyopathy History of non-ST elevation myocardial infarction (NSTEMI) (01/26/17) Arthritis Type 2 diabetes mellitus Old myocardial infarction Chronic systolic (congestive) heart failure Essential (primary) hypertension Paroxysmal atrial fibrillation Aortic valve calcification Atrioventricular block, Mobitz type 2 Atrioventricular block, complete Hyperlipidemia Chronic renal disease, stage 3, moderately decreased glomerular filtration rate between 30-59 mL/min/1.73 square meter Tachy-mary syndrome Home Medications ?Medication ?Instructions ?Recorded ?Last Taken ?Type cyanocobalamin (vitamin B-12) 1,000 mcg sublingual DAILY 01/24/17 01/24/17 History 1,000 mcg sublingual tablet supplement omeprazole 20 mg capsule,delayed 20 mg PO DAILY acid reflux 01/24/17 01/31/24 History release simvastatin 20 mg tablet 20 mg PO QHS cholesterol lowering 01/24/17 01/23/17 History carvedilol 25 mg tablet 25 mg PO BID Heart 06/14/19 01/31/24 History warfarin 5 mg tablet (Coumadin) 2.5 mg PO TUWEFR Anticoagulant 04/21/20 Unknown History loratadine 10 mg tablet 10 mg PO DAILY Allergies 08/28/20 01/31/24 History acetaminophen 500 mg tablet 500 mg PO Q8H PRN pain (scale 03/02/21 Unknown History (Tylenol Extra Strength) score 1-3) losartan 50 mg tablet 50 mg PO DAILY Blood pressure 30 03/02/21 01/31/24 History days #30 tabs polyethylene glycol 3350 17 17 g PO DAILY PRN constipation 03/02/21 01/31/24 History gram/dose oral powder (Miralax) torsemide 5 mg tablet 2.5 mg PO DAILY PRN Edema, weight 03/02/21 Unknown History gain azelastine 137 mcg (0.1 %) nasal 1 spray intranasal Q12H 01/23/24 Unknown History spray trazodone 50 mg tablet 50 mg PO QHS sleep 01/23/24 Unknown History amiodarone 200 mg tablet 200 mg PO DAILY Blood pressure 01/31/24 01/31/24 History bisacodyl 10 mg rectal suppository 10 mg MT DAILY PRN constipation 01/31/24 U nknown History docusate sodium 100 mg capsule 100 mg PO BID Constipation 01/31/24 Unknown History (Colace) melatonin 3 mg tablet 3 mg PO QHS PRN Sleep 01/31/24 Unknown History methocarbamol 500 mg tablet 500 mg PO Q8H PRN Muscle spasms 01/31/24 Unknown History ondansetron 4 mg disintegrating 4 mg PO Q8H PRN nausea 01/31/24 Unknown History tablet oxycodone 5 mg tablet 2.5 mg PO Q6H PRN Pain 4-6 01/31/24 Unknown History sennosides 8.6 mg tablet (senna) 8.6 mg PO QHS Constipation 01/31/24 Unknown History warfarin 1 mg tablet 1 mg PO .COMPLEX Anticoagulant 01/31/24 Unknown History Allergy/AdvReac Type Severity Reaction Status Date / Time lisinopril Allergy Severe rash Verified 02/08/24 11:11 amlodipine Allergy Intermediate Rash Verified 02/08/24 11:11 atorvastatin (From Lipitor) Allergy Unknown Verified 02/08/24 11:11 doxazosin Allergy Unknown Verified 02/08/24 11:11 hydrochlorothiazide Allergy Unknown Verified 02/08/24 11:11 niacin (From Niaspan Allergy Unknown Verified 02/08/24 11:11 Extended-Release) propranolol (From Inderal LA) Allergy Unknown Verified 02/08/24 11:11 quinine Allergy Unknown Verified 02/08/24 11:11 tamsulosin (From Flomax) Allergy Unknown Verified 02/08/24 11:11 verapamil (From Calan) Allergy Unknown Verified 02/08/24 11:11 Family History Father CAD (coronary artery disease) Brother CAD (coronary artery disease) Surgical History Hx of colonoscopy History of esophagogastroduodenoscopy (EGD) History of open reduction and internal fixation (ORIF) procedure History of loop recorder Cardiac pacemaker in situ (01/26/17) Social History household members: none Smoking Status: Former smoker how long ago did patient quit smokin alcohol intake: current alcohol intake frequency: a few times a week Alcohol type: hard liquor substance use type: does not use caffeine: Yes Type: coffee Number of servings: 3 what type of physical activity do you participate in: none seatbelt use: always do you feel safe at home: Yes Review of Systems (Anesthesia) ROS Narrative System reviewed and no additional complaints, except as documented.
--- NOTE | 2024-02-08 11:45 | EGD_PTH ---
PATIENT: PEG BAEZ LOC: [facility] U#:[id number] AGE/SX: 88/M ROOM: RE02/08/[address]: Dr. Main Zhang DO : 1935 BED: DIS: 02/08/2024 SPEC #: [id number] RECD: 02/08/24 17:00 STATUS: RACHELLE HER #: [id number] ANISA: 02/08/24 11:[address]: Main Zhang DEPT: SURGICAL PATHOLOGY RECD BY: Loni Chávez ENTERED: 02/09/24 09:08 SP TYPE: EGD BIOPSY SANDY DR: KERRIE Mas Tissues: Esophagus, NOS Procedures: Special Stain Group I Surgery Specimen Level IV Alcian Blue/PAS (control) HEADER OPERATION: EGD with biopsies and esophageal dilation PRE-OP DIAGNOSIS: Dysphagia TISSUE SUBMITTED: Distal esophagus MICROSCOPIC DIAGNOSIS Distal esophagus, biopsy: Fragments of gastroesophageal mucosa with chronic inflammation and minimal acute inflammation. Intestinal metaplasia (goblet cell metaplasia) not identified. See comment. Sydnee 02/10/2024 COMMENT Alcian blue/PAS stain with matched control is used in the evaluation of the specimen. The specimen predominantly consists of squamous mucosa. MICROSCOPIC DESCRIPTION Slides are reviewed. GROSS DESCRIPTION Received in fixative is one container labeled with the patient's name and designated Distal esophagus biopsy. The specimen consists of multiple irregular fragments of light fung soft tissue that in aggregate measure 1.0 x 0.5 x 0.1 cm. The specimen is totally submitted in one cassette. 02/09/2024 TC:3 CPT:42399,53347
--- NOTE | 2024-02-08 13:18 | OP.EGD_ITS ---
Patient Name: Demar Schrader Procedure Date: 02/08/2024 11:29 AM Date of : 1935 Age: 88 Procedure: Upper GI endoscopy Indications: Dysphagia Providers: Main Zhang DO Medicines: Monitored Anesthesia Care Patient Profile: This is an 88 year old male. Refer to note in patient chart for documentation of history and physical. Patient has symptoms of dysphagia with both liquids and solids. Complications: No immediate complications. Procedure: Pre-Anesthesia Assessment: - Prior to the procedure, a History and Physical was performed, and patient medications and allergies were reviewed. The patient is competent. The risks and benefits of the procedure and the sedation options and risks were discussed with the patient. All questions were answered and informed consent was obtained. Patient identification and proposed procedure were verified by the physician in the pre-procedure area. Mental Status Examination: alert and oriented. Airway Examination: normal oropharyngeal airway and neck mobility. Respiratory Examination: clear to auscultation. CV Examination: normal. Prophylactic Antibiotics: The patient does not require prophylactic antibiotics. Prior Anticoagulants: The patient has taken Coumadin (warfarin), last dose was 5 days prior to procedure. ASA Grade Assessment: III - A patient with severe systemic disease. After reviewing the risks and benefits, the patient was deemed in satisfactory condition to undergo the procedure. The anesthesia plan was to use monitored anesthesia care (MAC). Immediately prior to administration of medications, the patient was re-assessed for adequacy to receive sedatives. The heart rate, respiratory rate, oxygen saturations, blood pressure, adequacy of pulmonary ventilation, and response to care were monitored throughout the procedure. The physical status of the patient was re-assessed after the procedure. After obtaining informed consent, the endoscope was passed under direct vision. Throughout the procedure, the patient's blood pressure, pulse, and oxygen saturations were monitored continuously. The gastroscope was introduced through the mouth, and advanced to the second part of duodenum. The upper GI endoscopy was accomplished without difficulty. The patient tolerated the procedure well. Scope In: 12:58:09 PM Scope Out: 1:06:42 PM Total Procedure Duration Time 0 hours 8 minutes 33 seconds Findings: The examined esophagus was significantly tortuous. One benign-appearing, intrinsic severe (stenosis; an endoscope cannot pass) stenosis was found 38 to 39 cm from the incisors. This stenosis measured 4 mm (inner diameter) x 3 cm (in length). The stenosis was traversed after dilation. A guidewire was placed and the scope was withdrawn. Dilation was performed with a Savary dilator with no resistance at 54 Fr. The dilation site was examined and showed moderate mucosal disruption. Biopsies were taken with a cold forceps for histology. Verification of patient identification for the specimen was done. Estimated blood loss was minimal. Abnormal motility was noted in the esophagus. The cricopharyngeus was abnormal. There are extra peristaltic waves in the esophageal body. The distal esophagus/lower esophageal sphincter is patulous. Secondary peristaltic waves are noted. A large hiatal hernia was present. Excessive fluid was found in the entire examined stomach. Fluid aspiration was performed. Verification of patient identification for the specimen was done. Estimated blood loss was minimal. No gross lesions were noted in the first portion of the duodenum. Patchy, white plaques were found in the upper third of the esophagus. Impression: - Tortuous esophagus. - Benign-appearing esophageal stenosis. Dilated. Biopsied. - Abnormal esophageal motility, suspicious for achalasia. - Large hiatal hernia. - Excessive gastric fluid. Fluid aspiration performed. - No gross lesions in the first portion of the duodenum. Recommendation: - Return patient to referring hospital for ongoing care. - Advance diet as tolerated. - Continue present medications. - Await pathology results. - Nystatin swish and swallow 4 times a day for 5 days - Metoclopramide 5 mg 3 times a day Procedure Code(s): --- Professional --- 49794, Esophagogastroduodenoscopy, flexible, transoral; with insertion of guide wire followed by passage of dilator(s) through esophagus over guide wire 39659, 59,51, Esophagogastroduodenoscopy, flexible, transoral; with biopsy, single or multiple CPT copyright 2021 [employer]. All rights reserved. The codes documented in this report are preliminary and upon cutter down review may be revised to meet current compliance requirements. Main Zhang DO 02/08/2024 1:17:41 PM This report has been signed electronically. Number of Addenda: 0 Note Initiated On: 02/08/2024 11:29 AM
--- NOTE | 2024-02-08 13:18 | OP.CCLET_ITS ---
02/08/2024 Ian Hathaway Re : Upper GI endoscopy procedure for Demar Schrader Dear Rivas This procedure was performed on Thursday, February 08, 2024. My impressions and recommendations are as follows: Impressions : - Tortuous esophagus. - Benign-appearing esophageal stenosis. Dilated. Biopsied. - Abnormal esophageal motility, suspicious for achalasia. - Large hiatal hernia. - Excessive gastric fluid. Fluid aspiration performed. - No gross lesions in the first portion of the duodenum. Recommendations : - Return patient to referring hospital for ongoing care. - Advance diet as tolerated. - Continue present medications. - Await pathology results. - Nystatin swish and swallow 4 times a day for 5 days - Metoclopramide 5 mg 3 times a day My findings are described in the full procedure note, which is enclosed. If I can be of further assistance, please feel free to contact me at . Sincerely, Main Zhang, 02/08/2024 1:17:41 PM This report has been signed electronically.
--- NOTE | 2024-02-08 13:22 | PCM.POST.ANE ---
Anesthesia: Postop Eval I Current Vital Signs Temperature: 97.2 F Pulse Rate: 60 Blood Pressure: 87/55 Respiratory Rate: 16 Pulse Ox: 99 Oxygen Delivery Method: Nasal Cannula Oxygen Flow Rate (L/min): 3 Assessment Airway patent: Yes Spontaneous unlabored respirations: Yes Mental status: Awake and Calm nausea: No Vomiting: No Anesthesia Complication: No Fluid Hydration Crystalloid volume administer (ml): 300 Total IV fluid infused: 300 Progress Note Anesthesia document: Postop Eval 1 completed: Yes
--- NOTE | 2024-02-08 13:39 | PCM.POSTANE2 ---
Anesthesia Postop Eval I Sum Postop Eval Completion status Anesthesia document: Postop Eval 1 completed: Yes Anesthesia Postop Eval I Summary Anesthesia Postop Eval I Summary: Anesthesia Postop Eval I: Assessment Summary Airway patent Yes 02/08/24 13:23 [email or web address] Spontaneous unlabored Yes 02/08/24 13:23 [email or web address] respirations Mental status Awake,Calm 02/08/24 13:23 [email or web address] nausea No 02/08/24 13:23 [email or web address] Vomiting No 02/08/24 13:23 [email or web address] Anesthesia Postop Eval I: Fluid Summary Crystalloid volume administer 300 02/08/24 13:23 [email or web address] (ml) Colloids volume administered ( ml) Blood Product volume administered (ml) Total IV fluid infused 300 02/08/24 13:23 [email or web address] Anesthesia Postop Eval I: Summary Notes Anesthesia Complication No 02/08/24 13:23 [email or web address] Anesthesia Complication Comment: Post-operative progress note Anesthesia: Postop Eval II Evaluation Mental status: Awake Pain Level: 0 nausea: No Vomiting: No
== END 2024-02-08 23:00 | disposition home or self-care (01) ==
LOC: EN 08-22 21:31
PROVIDERS: PCP Clinical Nurse Specialist Adult Health; Referring Provider Clinical Nurse Specialist Adult Health; Visit Provider Internal Medicine Gastroenterology
PROC: 0DJ08ZZ Inspection of Upper Intestinal Tract, Via Natural or Artificial Opening Endoscopic (ICD-10-PCS; CPT 43235; principal; 2024-02-08 11:40)
DX: Q39.8 Other congenital malformations of esophagus (principal); I48.0 Paroxysmal atrial fibrillation; E11.9 Type 2 diabetes mellitus without complications; K22.2 Esophageal obstruction; K44.9 Diaphragmatic hernia without obstruction or gangrene; R13.10 Dysphagia, unspecified; I25.2 Old myocardial infarction; Z95.0 Presence of cardiac pacemaker; Z87.891 Personal history of nicotine dependence
CPT/HCPCS: 43248; 43239; 88305; 88312; C1769

== ENCOUNTER → 2024-02-09 | Outpatient (CLI) | payer MEDICARE, SELFPAY ==
--- NOTE | 2024-02-09 15:20 | CT_ITS ---
EXAM: CT CHEST, ABDOMEN AND PELVIS WITH INTRAVENOUS CONTRAST CLINICAL INDICATION: VOMITING TECHNIQUE: Helically acquired images were obtained of the chest, abdomen and pelvis with intravenous contrast. This CT exam was performed using one or more of the following dose reduction techniques: automated exposure control, adjustment of the mA and/or kV according to patient size, and/or use of iterative reconstruction technique. CONTRAST: IV 100mL Isovue-370 RADIATION DOSE: CTDIvol = 25.49 mGy, DLP = 2281.78 mGy-cm COMPARISON: 01/23/2024 FINDINGS: CHEST: LUNGS AND PLEURAL SPACES: Small to moderate right pleural effusion, with compressive atelectasis of the adjacent right lung, stable. Small to moderate left pleural effusion and adjacent subsegmental atelectasis of left lower lobe, significantly worse than prior exam. Lungs otherwise show mild interstitial thickening, probably fibrosis. No other focal pulmonary opacities. No definite mass. No pneumothorax. HEART: Mild cardiomegaly. Coronary artery calcifications. No pericardial effusion. MEDIASTINUM: Abnormal distended fluid-filled tortuous esophagus which appears to have probable partial functional distal obstruction related to a moderately large hiatal hernia. Findings worse than prior study. No mediastinal or hilar adenopathy. THYROID: Unremarkable. No thyroid lesions. ABDOMEN: LIVER: Unremarkable. Homogeneous. No focal mass. GALLBLADDER AND BILE DUCTS: Markedly distended gallbladder. No definite stones. No intra- or extrahepatic biliary ductal dilation. PANCREAS: Unremarkable. No focal cystic or solid mass. SPLEEN: Unremarkable. Normal size without focal cystic or solid mass. ADRENALS: Unremarkable. No nodules. KIDNEYS AND URETERS: Bilateral cortical thinning and scarring of the kidneys. No acute abnormalities of the kidneys. No hydronephrosis. STOMACH AND BOWEL: Moderately large hiatal hernia and distended esophagus. No small or large bowel distention. No focal inflammatory change. PELVIS: APPENDIX: No evidence of acute appendicitis. BLADDER: Unremarkable. REPRODUCTIVE: Unremarkable as visualized. No mass. CHEST, ABDOMEN and PELVIS: INTRAPERITONEAL SPACE: Unremarkable. No ascites or other fluid collection. No free air. BONES/JOINTS: Stable fractures of the posterior 10th and 11th ribs. Degenerative changes throughout the spine. No suspicious lytic or blastic abnormality. SOFT TISSUES: Unremarkable. No discrete abdominal or pelvic wall hernia. VASCULATURE: Calcified plaque of the aorta. No aneurysm. Heavily calcified aorta and iliac arteries. No aneurysm. No aortic dissection. No obvious central pulmonary embolism although this study was not performed with the pulmonary embolism protocol. LYMPH NODES: Unremarkable. No enlarged lymph nodes. CT/CT Chest, Abd, Pel w/Contrast IMPRESSION: 1. Bilateral pleural effusions. Bilateral compressive atelectasis of the lower lobes. On the right, findings are stable. On the left, findings are significantly worse. 2. Abnormal distended fluid-filled esophagus which appears to have probable partial functional obstruction related to a moderately large hiatal hernia. Findings worse than prior study. 3. Marked distention of the gallbladder without definite stones. 4. Bilateral cortical thinning of the kidneys with scarring. No hydronephrosis or stones. Electronically Signed: Shakeel Quesada MD at 17:33 EDT ,
== END | disposition home or self-care (01) ==
LOC: CT 15:19
PROVIDERS: PCP Physician Assistant; Visit Provider Internal Medicine Gastroenterology
DX: K22.0 Achalasia of cardia (principal); K44.9 Diaphragmatic hernia without obstruction or gangrene; R11.10 Vomiting, unspecified
CPT/HCPCS: 71260; 74177

== ENCOUNTER 2024-02-15 18:21 | Inpatient (IN) | payer MEDICARE, SELFPAY ==
[2024-02-15 18:38] VITALS: BP 119/67; PULSE 60; RESP 20; TEMP 35.7; O2SAT 94; BMI 28.3
[2024-02-15] MEDS: Jevity 1.5 1,000 ML 60 ML GT (19:05)
--- NOTE | 2024-02-15 20:49 | NURSING ---
New order received via secure Backline text for new order for blood sugar checks every 6 hours as resident is NPO and has continuous tube feed.
--- NOTE | 2024-02-15 20:59 | PCM.HP.STD ---
[facility] - General General Date of Admission: 02/15/24 Date of Service: 02/16/24 Chief Complaint: Here for rehabilitation. HPI Narrative 02/09/2024 PEG BAEZ, is a 88 Male who presents to [facility] ED with abdominal pain, nausea/vomiting. CT abdomen/pelvis showed dilated esophagus, large hiatal hernia, possible obstruction. Morphine given, then repeated. Dr. Zhang recommended EGD. 02/10/2024 Admit [facility]. Hold coumadin, give Reglan IV, Protonix IV, consult Dr. Zhang for PEG placement for esophageal stenosis, obstruction, hiatal hernia, achalasia. Lasix IV for bilateral pleural effusion. 02/11/2024 NPO, Chest X-ray showed bilateral pleural effusion. Dr. Zhang offered PEG, patient reluctant. Dr. Zhang discussed Nissin fundiplication, esophageal stent placement. Consider thoracentesis 02/13/2024 for bilateral pleural effusion. 02/11/2024 Dr. Zhang EGD benign esophageal stenosis. Large hiatal hernia, Dobbhoff placed. 02/12/2024 TF per Dobbhoff. Thoracentesis cancelled, not enough fluid to tap. 02/13/2024, Nausea/vomiting 2/2 large hiatal hernia, possible achalasia. [facility] declined transfer for hiatal hernia surgery. Dobbhoff tube not roasterman solution. 02/14/2024 Dr. Zhang placed PEG. 02/14/2024 Pre-[facility] TCU. PEG for TF, ST to evaluate to advance diet. BMP to monitor ckd 4. Iron iv for iron deficiency anemia. Lasix iv for acute on chronic HFpEF. 02/15/2024 Admit to TCU with debility, here for rehabilitation, strengthening, prior to discharge home alone. [facility] Medical History Ventricular tachycardia (paroxysmal) (03/2021) Non-ischemic cardiomyopathy History of non-ST elevation myocardial infarction (NSTEMI) (01/26/17) Arthritis Type 2 diabetes mellitus Old myocardial infarction Chronic systolic (congestive) heart failure Essential (primary) hypertension Paroxysmal atrial fibrillation Aortic valve calcification Atrioventricular block, Mobitz type 2 Atrioventricular block, complete Hyperlipidemia Chronic renal disease, stage 3, moderately decreased glomerular filtration rate between 30-59 mL/min/1.73 square meter Tachy-mary syndrome Home Medications ?Medication ?Instructions ?Recorded ?Last Taken ?Type simvastatin 20 mg tablet 20 mg feeding tube QHS cholesterol 01/24/17 02/09/24 History lowering carvedilol 25 mg tablet 25 mg feeding tube BID Heart 06/14/19 02/11/24 History warfarin 5 mg tablet (Coumadin) 2.5 mg feeding tube TUWEFR 04/21/20 02/15/24 17:47 History Anticoagulant acetaminophen 500 mg tablet 500 mg feeding tube Q8H PRN pain 03/02/21 02/09/24 History (Tylenol Extra Strength) (scale score 1-3) polyethylene glycol 3350 17 17 g feeding tube DAILY PRN 03/02/21 02/06/24 History gram/dose oral powder (Miralax) constipation trazodone 50 mg tablet 50 mg feeding tube QHS sleep 01/23/24 02/12/24 History amiodarone 200 mg tablet 200 mg feeding tube DAILY Blood 01/31/24 02/12/24 History pressure melatonin 3 mg tablet 3 mg feeding tube QHS PRN Sleep 01/31/24 Unknown History methocarbamol 500 mg tablet 500 mg feeding tube Q8H PRN Muscle 01/31/24 02/08/24 History spasms ondansetron 4 mg disintegrating 4 mg feeding tube Q8H PRN nausea 01/31/24 02/09/24 History tablet warfarin 1 mg tablet 1 mg feeding tube SUMOTHSA 01/31/24 02/09/24 History Anticoagulant sennosides 8.6 mg tablet (Senokot) 17.2 mg feeding tube DAILY PRN 02/09/24 Unknown History constipation enoxaparin 30 mg/0.3 mL 30 mg (0.3 mL) subcut DAILY blood 02/15/24 02/15/24 10:25 Rx subcutaneous syringe thinner #0 mL ferrous sulfate 325 mg (65 mg 325 mg feeding tube BID supplement 02/15/24 Unknown History iron) tablet furosemide 40 mg tablet (Lasix) 60 mg feeding tube DAILY fluid 02/15/24 Unknown History losartan 50 mg tablet 25 mg feeding tube DAILY BP 02/15/24 02/09/24 History menthol 0.44 %-zinc oxide 20.6 % 1 applic topical BID skin #0 grams 02/15/24 02/15/24 10:25 Rx topical ointment (Calmoseptine) omeprazole 20 mg capsule,delayed 40 mg feeding tube DAILY GERD 02/15/24 02/09/24 History release Allergy/AdvReac Type Severity Reaction Status Date / Time lisinopril Allergy Severe rash Verified 02/09/24 20:00 amlodipine Allergy Intermediate Rash Verified 02/09/24 20:00 atorvastatin (From Lipitor) Allergy Unknown Verified 02/09/24 20:00 doxazosin Allergy Unknown Verified 02/09/24 20:00 hydrochlorothiazide Allergy Unknown Verified 02/09/24 20:00 niacin (From Niaspan Allergy Unknown Verified 02/09/24 20:00 Extended-Release) propranolol (From Inderal LA) Allergy Unknown Verified 02/09/24 20:00 quinine Allergy Unknown Verified 02/09/24 20:00 tamsulosin (From Flomax) Allergy Unknown Verified 02/09/24 20:00 verapamil (From Calan) Allergy Unknown Verified 02/09/24 20:00 Family History Father CAD (coronary artery disease) Brother CAD (coronary artery disease) Surgical History Hx of colonoscopy History of esophagogastroduodenoscopy (EGD) History of open reduction and internal fixation (ORIF) procedure History of loop recorder Cardiac pacemaker in situ (01/26/17) Social History household members: none housing: correction Smoking Status: Former smoker how long ago did patient quit smokin alcohol intake: current alcohol intake frequency: a few times a week Alcohol type: hard liquor substance use type: does not use caffeine: Yes Type: coffee Number of servings: 3 what type of physical activity do you participate in: none seatbelt use: always do you feel safe at home: Yes ROS Constitutional Constitutional: Denies chills, fever(s) or weight gain ENT HEENT: Denies headache(s), nasal congestion or nasal discharge Cardiovascular Cardiovascular: Denies chest pain or palpitations Respiratory/Chest Respiratory/Chest: Denies cough, excessive phlegm production or shortness of breath with exertion Gastrointestinal Gastrointestinal: Denies abdominal pain, nausea or vomiting Genitourinary Genitourinary: Denies dysuria Musculoskeletal Musculoskeletal: Denies joint pain or joint swelling Integumentary Integumentary: Denies rash or wounds Neurologic Neurologic: Denies focal weakness, numbness or tingling Psychiatric Psychiatric: Denies anxiety, auditory hallucinations, depression, homicidal ideation or suicidal ideation Vital Signs Vital Signs Vital Signs: 02/15/24 18:38 Temperature 96.3 F L Temperature Source Temporal Pulse Rate 60 Respiratory Rate 20 H Blood Pressure 119/67 Blood Pressure Mean 84 Pulse Ox 94 Oxygen Delivery Method Nasal Cannula Oxygen Flow Rate (L/min) 2 Weight Weight: 100.329 kg Body Mass Index (BMI) 28.3 Physical Exam Const alert General Appearance: cooperative HEENT normocephalic Eyes PERRL and EOMs intact bilaterally Neck supple, no JVD and no carotid bruits Resp normal respiratory effort, normal air movement and clear to auscultation bilaterally Cardio regular rate and regular rhythm GI normal to inspection, nondistended, normoactive bowel sounds, non-tender and non-distended GI Narrative: PEG present. Extremity normal capillary refill General Extremity: Negative for edema Skin no rashes or lesions noted General Skin Exam: no breakdown Psych affect normal Appearance: appropriate Assessment & Plan Assessment/Plan (1) Debility: (2) Dysphagia: (3) Esophageal obstruction: (4) Large hiatal hernia: (5) Esophageal achalasia: (6) Status post insertion of percutaneous endoscopic gastrostomy (PEG) tube: (7) Bilateral pleural effusion: (8) Acute on chronic heart failure with preserved ejection fraction (HFpEF): (9) Atrial fibrillation: (10) Coronary artery disease: (11) Allergic rhinitis: (12) Insomnia: (13) Muscle spasm: (14) GERD (gastroesophageal reflux disease): (15) Hyperlipidemia: QUALIFIERS: Hyperlipidemia type: pure hypercholesterolemia Qualified Code(s): E78.00 - Pure hypercholesterolemia, unspecified; E78.0 - Pure hypercholesterolemia PLAN: Plan 88 year old male with below past medical history hospitalized for nausea, vomiting 2/2 esophageal obstruction, hiatal hernia, achalasia, underwent PEG placement 02/14/[address] Zhang, complicated by acute on chronic HFpEF, bilateral pleural effusion, admitted to TCU with debility, here for rehabilitation, strengthening, prior to discharge home alone. Debility - PT/OT. Dysphagia - ST. Pain - Tylenol 500mg q8 prn. Bowel - Miralax 17gm daily prn, Senokot 2 tablets daily prn. Adult immunization - Administer pneumonia vaccine, covid vaccine, flu vaccine as appropriate DVT prophylaxis - on warfarin. Atrial fibrillation - Coreg 25mg bid, Amiodarone 200mg daily, Warfarin 1mg/2.5mg alternating, follow INR. Iron deficiency anemia - Ferrous sulfate 325mg bidcm. Chronic HFpEF - Coreg 25mg bid, Losartan 25mg daily, Furosemide 60mg daily. Nutrition - Jevity 1.5 60mL/hour. GERD - Lansoprazole 30mg daily. Insomnia - Melatonin 3mg qhs prn. Skin irritation - Calmoseptine topical bid. Muscle spasm - Robaxin 500mg q8 prn. Nausea - Zofran odt 4mg q8 prn. Hyperlipidemia - Simvastatin 20mg qhs. Insomnia - Trazodone 50mg qhs.
[2024-02-15] MEDS: Simvastatin 20 MG Tablet GT (22:47)
[2024-02-15] MEDS: traZODone 50 MG Tablet GT (22:47)
[2024-02-15] MEDS: Ferrous Sulfate 325 MG Tablet GT (22:47)
[2024-02-15] MEDS: Menthol/Lanolin/Calamine/Znox 113 GM Tube 1 APPLIC TOPICAL (22:53)
[2024-02-15] MEDS: Carvedilol 25 MG Tablet GT (23:20)
[2024-02-16 03:39] LABS: Bedside Glucose 137 mg/dL (74-106)
[2024-02-16 06:45] LABS: Bedside Glucose 155 mg/dL (74-106)
[2024-02-16 07:29] VITALS: O2SAT 91
--- NOTE | 2024-02-16 09:03 | NURSING ---
Technical Implementation Lead Note; Activity Asset: Judy Benz prefers to be called Moses. Moses has returned to TCU for continued therapy and remines independent in his choice of daily activities. He enjoy watching tv, reading and spending time with family. He prefers to rest when not in therapy. He welcomes visits from the banquet bartender and therapy dog as well. Staff will encourage social activities, remind him of weekly activities and respect his right to say no.
[2024-02-16 09:10] VITALS: O2SAT 92
[2024-02-16] MEDS: Furosemide 20 MG Tablet 60 MG GT (10:29)
[2024-02-16] MEDS: Lansoprazole 15 MG Capsule.DR 30 MG GT (10:30)
[2024-02-16] MEDS: Ferrous Sulfate 325 MG Tablet GT ×2 (10:30→17:41)
[2024-02-16] MEDS: Carvedilol 25 MG Tablet GT ×2 (10:30→22:18)
[2024-02-16] MEDS: Amiodarone 200 MG Tablet GT (10:31)
[2024-02-16] MEDS: Menthol/Lanolin/Calamine/Znox 113 GM Tube 1 APPLIC TOPICAL ×2 (10:31→22:17)
[2024-02-16] MEDS: Losartan Potassium 25 MG Tablet GT (10:31)
--- NOTE | 2024-02-16 10:47 | PCM.PN.DRR ---
TCU RX Drug Regimen Review Subjective/Objective Subjective/Objective: Subjective: 88 YOM admitted to TCU on 02/15/24 s/p hospitalization at [facility] secondary to abdominal pain/ n/v. During hospitalization, patient was found to have a large hiatal hernia, transfer to outside facility was declined, ultimately resulting in a GT placement. Admitted to TCU for rehabilitation and strengthening prior to discharge home where he currently resides alone. Objective: Allergies lisinopril Allergy (Severe, Verified 02/09/24 20:00) rash amlodipine Allergy (Intermediate, Verified 02/09/24 20:00) Rash atorvastatin (From Lipitor) Allergy (Verified 02/09/24 20:00) Unknown doxazosin Allergy (Verified 02/09/24 20:00) Unknown hydrochlorothiazide Allergy (Verified 02/09/24 20:00) Unknown niacin (From Niaspan Extended-Release) Allergy (Verified 02/09/24 20:00) Unknown propranolol (From Inderal LA) Allergy (Verified 02/09/24 20:00) Unknown quinine Allergy (Verified 02/09/24 20:00) Unknown tamsulosin (From Flomax) Allergy (Verified 02/09/24 20:00) Unknown verapamil (From Calan) Allergy (Verified 02/09/24 20:00) Unknown Current Medications Generic Name Dose Route Start Last Admin Trade Name Freq PRN Reason Stop Dose Admin Acetaminophen 500 mg 02/15/24 20:33 Acetaminophen 650 Mg/20 Ml Udc GT Q8H PRN pain (scale score 1-3) Amiodarone HCl 200 mg 02/16/24 10:00 Amiodarone 200 Mg Tablet GT DAILY [facility] Calamine/Phenol 1 applic 02/15/24 22:00 02/15/24 22:53 Menthol/Lanolin/Calamine/Znox 113 Gm Tube TOPICAL 1 applic BID TRI Administration Protocol Carvedilol 25 mg 02/15/24 22:00 02/15/24 23:20 Carvedilol 25 Mg Tablet GT 25 mg BID TRI Administration Protocol Ferrous Sulfate 325 mg 02/15/24 22:00 02/15/24 22:47 Ferrous Sulfate 325 Mg Tablet GT 325 mg BIDCM TRI Administration Furosemide 60 mg 02/16/24 10:00 Furosemide 20 Mg Tablet GT DAILY [facility] Protocol Enteral Nutritional Formula 1,000 mls @ 60 mls/hr 02/15/24 19:05 02/15/24 19:05 Jevity 1.5 GT 60 mls/hr .[id number] TRI Administration Lansoprazole 30 mg 02/16/24 10:00 Lansoprazole 15 Mg Capsule. GT DAILY [facility] Losartan Potassium 25 mg 02/16/24 10:00 Losartan Potassium 25 Mg Tablet GT DAILY [facility] Protocol Melatonin 3 mg 02/15/24 18:53 Melatonin 3 Mg Tablet GT QHS PRN Sleep Methocarbamol 500 mg 02/15/24 18:53 Methocarbamol 500 Mg Tablet GT Q8H PRN Muscle spasms Ondansetron HCl 4 mg 02/15/24 18:53 Ondansetron Odt 4 Mg Tablet GT Q8H PRN nausea Polyethylene Glycol 17 gm 02/15/24 20:39 Polyethylene Glycol 3350 17 Gm Packet GT DAILY PRN Constipation Senna 2 tablet 02/15/24 18:53 Senna Tablet GT DAILY PRN constipation Simvastatin 20 mg 02/15/24 22:00 02/15/24 22:47 Simvastatin 20 Mg Tablet GT 20 mg QHS [facility] Administration Trazodone HCl 50 mg 02/15/24 22:00 02/15/24 22:47 Trazodone 50 Mg Tablet GT 50 mg QHS [facility] Administration Tuberculin PPD 0.1 ml 02/23/24 10:00 Tuberculin,Purif.Prot.Deriv. 50 Tu/Ml Vial ID 02/23/24 10:01 X1 ONE Warfarin Sodium 2.5 mg 02/17/24 17:00 Warfarin 2.5 Mg Tablet GT [id number] [facility] Warfarin Sodium 1 mg 02/16/24 17:00 Warfarin 1 Mg Tablet GT [id number] [facility] Problem List Muscle spasm (Acute) Acute on chronic heart failure with preserved ejection fraction (HFpEF) (Acute) Bilateral pleural effusion (Acute) Status post insertion of percutaneous endoscopic gastrostomy (PEG) tube (Acute) Large hiatal hernia (Acute) Esophageal obstruction (Acute) Esophageal achalasia (Acute) Dysphagia (Acute) Insomnia (Acute) Allergic rhinitis (Acute) Coronary artery disease (Acute) Atrial fibrillation (Acute) Hyperlipidemia (Acute) GERD (gastroesophageal reflux disease) (Acute) Debility (Acute) Vital Signs Temp Pulse Resp BP Pulse Ox O2 Del Method O2 Flow Rate 96.3 F L 60 20 H 119/67 92 Nasal Cannula 2 02/15/24 18:38 02/15/24 18:38 02/15/24 18:38 02/15/24 18:38 02/16/24 09:10 02/16/24 07:29 02/16/24 09:10 Oxygen Flow Rate (L/min) 2 Oxygen Delivery Method Nasal Cannula Weight: 100.329 kg Body Mass Index (BMI) 28.3 Assessment/Plan: 1. Pain: Tylenol 500mg GT Q8h PRN Pain 1-10. Please continue to monitor for S/S increased/decreased pain, PRN medication usage. - To date, the patient has not required any doses of PRN medication for pain. 2. Atrial Fibrillation/ HLD: Amiodarone 200mg GT Daily, Coreg 25mg GT BID, Simvastatin 20mg GT QHS, Warfarin 2.5mg GT // and Warfarin 1mg ///. Please continue to monitor blood pressures (last 119/67), pulse ( LAST 60 bpm), s/s bleeding/bruising, INR (1.2 on 02/14), lipid panel annually (none on file). 3. CHF: Coreg 25mg GT BID, Lasix 60mg GT Daily, Losartan 25mg GT Daily. Please continue to monitor blood pressure, pulse, I/O, s/s increased fluid retention, renal function (Scr 2.31 on 02/13). 4. GERD: Prevacid 30mg GT Daily. Please continue to monitor for GERD exacerbations, abdominal pain, headache. 5. Iron Deficiency Anemia: Ferrous sulfate 325mg PO BIDCM. Please continue to monitor H/H (Hgb 8.1/ Hct 26.3 on 02/13), GI upset, nausea, iron studies (last done 02/11/24). 6. Muscle Spasm: Methocarbamol 500mg GT Q8h PRN. This is a BEER's criteria medication which can have anticholinergic side effects on patients greater than 65 years of age. Please continue to monitor closely for risk v. benefit if patient requires doses. To date, the patient has not needed/ used any doses of this medication. 7. Nausea: Zofran 4mg GT Q8h PRN. Please continue to monitor for PRN medication usage, headache, medication effectiveness. -The patient has not needed any doses of this medication since admission. 8. Insomnia: melatonin 3mg GT QHS PRN. Please continue to monitor for medication effectiveness, oversedation, PRN usage. If medication appears ineffective, please consider administration of medication at least 2 hours prior to desired bedtime for optimal effectiveness. 9. Skin Integrity: Calmoseptine topically BID. Please continue to monitor for skin irritation, redness, ulcer formation. 10. Bowel: Senna 2 tab GT Daily PRN, Miralax 17g GT Daily PRN. Please continue to monitor for increased/decreased S/S constipation and/or diarrhea. -The patient has not had a BM since admission (<24hrs ago). If patient does not have BM in the next 48-72hrs, please consider administering PRN medications, thank you. Assessment/Plan for indications treated with psychotropic medications: 1. Insomnia: Trazodone 50mg GT QHS. Please consider a GDR by 07/2024 if clinically indicated, thank you. Medical chart and medication regimen reviewed. The following medication irregularities or issues were identified: 1. INR: Patient's last INR is subtherapeutic. Please evaluate dose and consider increasing dose or bridging with Lovenox to achieve INR goal if clinically indicated, thank you. 2. Patient is on statin therapy and no lipid panel is on file per EMR review. Please consider obtaining a lipid panel of clinically indicated, thank you. Date Date of Note:: 02/16/24
[2024-02-16 10:48] VITALS: O2SAT 92
[2024-02-16 11:15] VITALS: BP 126/55; PULSE 61
[2024-02-16] MEDS: Tuberculin,Purif.prot.deriv. 50 TU/ML Vial 0.1 ML ID (11:44)
[2024-02-16 14:40] VITALS: PULSE 60; RESP 24; O2SAT 96
--- NOTE | 2024-02-16 15:56 | NURSING ---
PT CONTINUES TO COUGH UP THICK CLEAR PHLEUM. CRACKLES THREW OUT LUNGS AND CAN HEAR MOISTURE IN THROAT. PT ALSO STATED THAT TYLENOL AND ROBAXIN DOES NOT HELP HIM WITH PAIN. RN AWARE AND NOTE LEFT FOR .
[2024-02-16 16:00] VITALS: BP 111/52; PULSE 60; RESP 16; TEMP 36.7; O2SAT 94
[2024-02-16 17:01] LABS: International Normalized Ratio 1.3; Prothrombin Time (Protime)PT. 16.4 SECONDS (11.7-14.9)
[2024-02-16] MEDS: oxyCODONE 5 MG Tablet GT ×2 (17:48→22:16)
--- NOTE | 2024-02-16 18:40 | RAD_ITS ---
STUDY: X-RAY CHEST REASON FOR EXAM: Male, 88 years old. Productive cough. TECHNIQUE: Frontal and lateral views of the chest. COMPARISON: 02/14/2024. FINDINGS: Increasing pulmonary opacities in the lower right lung and in the mid and lower left lung consistent with worsening of atelectasis/infiltrate with pleural effusions. Lateral views show no definite pleural effusions, small on the right and small to moderate on the left. Mild cardiomegaly. Implanted administrative processor seen in typical location. Pacemaker is seen with leads terminating in the right atrium and right ventricle. Normal size heart. Normal mediastinum and alexander. Normal visualized pulmonary arteries. Normal visualized aortic arch and descending thoracic aorta. There are diffuse degenerative changes of the visualized thoracic spine. Normal visualized ribs, clavicles, and shoulders. There is no demonstrated abnormality of the visualized soft tissue structures of the upper abdomen. RAD/Chest PA and Lateral IMPRESSION: Worsening of bilateral atelectasis or infiltrate and pleural effusions. Electronically Signed: Shakeel Quesdaa MD at 20:36 EDT ,
[2024-02-16] MEDS: Jevity 1.5 1,000 ML 60 ML GT (22:17)
[2024-02-16] MEDS: Simvastatin 20 MG Tablet GT (22:18)
[2024-02-16] MEDS: traZODone 50 MG Tablet GT (22:18)
--- NOTE | 2024-02-16 23:36 | NURSING ---
Addendum entered by Robb Burgess 02/17/24 01:12: DX:PNE Original Note: Contacted Dr. Richardson via telephone, notified of chest xray results,crackles to bilat lower lobes. Reviewed allergies. New order received for Levaquin 750mg IV Q48H x7 days, give first dose now. Order repeated back to Dr. Richardson.
[2024-02-17] MEDS: levoFLOXacin IV 750 MG/150 ML BAG 100 MG IV (00:47)
[2024-02-17] MEDS: 0.9% Normal Saline (250mL Bag) 250 ML 15 ML IV (00:49)
[2024-02-17 01:07] LABS: Bedside Glucose 127 mg/dL (74-106)
[2024-02-17] MEDS: traMADol 50 MG Tablet GT ×2 (02:14→21:52)
[2024-02-17] MEDS: oxyCODONE 5 MG Tablet GT ×3 (05:05→17:52)
[2024-02-17 05:27] VITALS: BMI 29.3
[2024-02-17 06:00] LABS: Absolute Lymphocyte Count 1.28 X10^3/uL (0.83-4.51); Absolute Neutrophil Count 3.2 X10^3/uL (2.0-7.7); Basophil# 0.04 X10^3/uL; Basophil% 0.7 % (0-1); Eosinophil# 0.31 X10^3/uL; Eosinophils% 5.7 % (0-5); Hematocrit 26.1 % (40-54); Hemoglobin 7.9 g/dL (13.0-16.5); Lymphocyte # 1.28 X10^3/ul (0.83-4.51); Lymphocyte % 23.7 % (19-41); Mean Corp Hgb Conc 30.3 g/dL (32-36); Mean Corpuscular Hgb 30.3 pg (27.0-32.0); Mean Platelet Vol. 10.5 fl (6.2-12.0); Monocyte# 0.48 X10^3/uL; Monocyte% 8.9 % (0-10); NRBC Flagged by Analyzer 0.4 % (0-5); Neutrophil # 3.22 X10^3/uL (2.7-7.7); Neutrophil % 59.5 % (47-70); Platelet Count 197 K/mm3 (150-450); RBC Distribution Width SD 51.2 fl (35.1-43.9); Red Blood Count 2.61 M/mm3 (4.6-6.2); White Blood Count 5.4 K/mm3 (4.4-11.0)
[2024-02-17 06:07] LABS: International Normalized Ratio 1.3; Prothrombin Time (Protime)PT. 16.6 SECONDS (11.7-14.9)
[2024-02-17 06:19] LABS: Anion Gap 5 (5-15); BUN 31 mg/dL (7-18); BUN/Creat Ratio 16.9 RATIO (10-20); Calcium,Total 8.3 mg/dL (8.5-10.1); Chloride 108 mmol/L (98-107); Creatinine, Serum 1.83 mg/dL (0.70-1.30); EST Glomerular Filtration Rate 37 mL/min (>60); Est Glom Filt Rate - Afr Amer 45 mL/min (>60); Estimated Creatinine Clearance 35.14 ml/min; Glucose 139 mg/dL (74-106); Sodium Level 140 mmol/L (136-145)
[2024-02-17 06:57] LABS: Bedside Glucose 105 mg/dL (74-106)
[2024-02-17 07:09] VITALS: O2SAT 93
--- NOTE | 2024-02-17 09:10 | CASEMGMT ---
Social Work SW readmitted to TCU. Completed new BIMS and educated to [facility] NRD 02/20. No changes to previous assessment. SW will continue to follow for DC planning. NEVIN BardalesW
[2024-02-17] MEDS: Amiodarone 200 MG Tablet GT (11:04)
[2024-02-17] MEDS: Ferrous Sulfate 325 MG Tablet GT ×2 (11:04→17:50)
[2024-02-17] MEDS: Menthol/Lanolin/Calamine/Znox 113 GM Tube 1 APPLIC TOPICAL ×2 (11:06→21:29)
[2024-02-17] MEDS: Lansoprazole 15 MG Capsule.DR 30 MG GT (11:06)
[2024-02-17] MEDS: Furosemide 20 MG Tablet 60 MG GT (11:06)
[2024-02-17 11:46] VITALS: BP 102/42; PULSE 69; O2SAT 96
--- NOTE | 2024-02-17 11:48 | NURSING ---
Addendum entered by Stephanie Short 02/17/24 12:38: Dr. Richardson adjusted meds, decreased coreg and lasix, discontinued losartan. Original Note: COZAAR AND COREG HELD PER . DUE TO PT BP LOW. PT HAS NON PITTING EDEMA IN LEFT FORE ARM AND ELBOW AND LEAKING FLUID. ABD AND WRAPPED IN GAZE. ALSO CONCERN RED HARD AREA TO PT LEFT SIDE OF BACK. WILL CONTINUE TO MONITOR.
[2024-02-17 15:32] VITALS: BP 93/49; PULSE 68; RESP 17; TEMP 36.2; O2SAT 96
[2024-02-17 16:51] LABS: Bedside Glucose 113 mg/dL (74-106)
[2024-02-17] MEDS: Jevity 1.5 1,000 ML 60 ML GT (18:15)
--- NOTE | 2024-02-17 18:31 | NURSING ---
0 RESIDUAL TODAY. PT TOLERATING TUBE FEEDING AND FLUSH WELL.
[2024-02-17] MEDS: traZODone 50 MG Tablet GT (21:28)
[2024-02-17] MEDS: 0.9% Saline Lock 10 ML Syringe IV (21:28)
[2024-02-17] MEDS: Simvastatin 20 MG Tablet GT (21:29)
[2024-02-17 21:30] VITALS: PULSE 59; RESP 24; O2SAT 95
[2024-02-17 21:40] VITALS: BP 92/47; PULSE 59; RESP 18; O2SAT 3
[2024-02-18 00:48] LABS: Bedside Glucose 114 mg/dL (74-106)
[2024-02-18 04:24] LABS: International Normalized Ratio 1.4; Prothrombin Time (Protime)PT. 16.7 SECONDS (11.7-14.9)
[2024-02-18 05:44] VITALS: BMI 28.8
[2024-02-18] MEDS: oxyCODONE 5 MG Tablet GT ×3 (07:41→22:19)
[2024-02-18] MEDS: Ferrous Sulfate 325 MG Tablet GT ×2 (07:41→17:33)
[2024-02-18] MEDS: Lansoprazole 15 MG Capsule.DR 30 MG GT (07:42)
[2024-02-18] MEDS: Amiodarone 200 MG Tablet GT (07:42)
[2024-02-18] MEDS: Furosemide 40 MG Tablet GT (07:43)
[2024-02-18] MEDS: Menthol/Lanolin/Calamine/Znox 113 GM Tube 1 APPLIC TOPICAL ×2 (07:47→22:43)
[2024-02-18 10:58] LABS: Bedside Glucose 109 mg/dL (74-106)
[2024-02-18 11:46] LABS: Bedside Glucose 136 mg/dL (74-106)
[2024-02-18] MEDS: Jevity 1.5 1,000 ML 60 ML GT (12:41)
[2024-02-18 16:00] VITALS: BP 127/61; PULSE 60; RESP 16; TEMP 36.1; O2SAT 95
[2024-02-18] MEDS: Polyethylene Glycol 3350 17 GM PACKET GT (17:32)
[2024-02-18] MEDS: Senna Tablet 2 TABLET GT (17:35)
[2024-02-18] MEDS: 0.9% Saline Lock 10 ML Syringe IV ×2 (17:39→22:08)
[2024-02-18 22:07] VITALS: BP 114/48; PULSE 60; O2SAT 97
[2024-02-18] MEDS: levoFLOXacin IV 750 MG/150 ML BAG 100 MG IV (22:12)
[2024-02-18] MEDS: traZODone 50 MG Tablet GT (22:17)
[2024-02-18] MEDS: Simvastatin 20 MG Tablet GT (22:17)
[2024-02-18] MEDS: Carvedilol 12.5 MG Tablet GT (22:19)
[2024-02-18] MEDS: 0.9% Normal Saline (250mL Bag) 250 ML 15 ML IV (22:30)
[2024-02-18] MEDS: Methocarbamol 500 MG Tablet GT (22:39)
[2024-02-18] MEDS: Acetaminophen 650 MG/20 ML UDC 1000 MG GT (22:40)
[2024-02-19 00:20] LABS: Bedside Glucose 131 mg/dL (74-106)
[2024-02-19 05:58] VITALS: BMI 29.3
[2024-02-19] MEDS: Jevity 1.5 1,000 ML 60 ML GT (06:05)
[2024-02-19 06:21] LABS: Bedside Glucose 117 mg/dL (74-106)
[2024-02-19] MEDS: Acetaminophen 650 MG/20 ML UDC 1000 MG GT ×2 (07:45→17:33)
[2024-02-19] MEDS: oxyCODONE 5 MG Tablet GT ×3 (07:45→23:00)
[2024-02-19 09:18] VITALS: BP 103/51; PULSE 60; RESP 18; TEMP 35.9; O2SAT 96
[2024-02-19] MEDS: Methocarbamol 500 MG Tablet GT ×2 (09:23→23:59)
[2024-02-19] MEDS: traMADol 50 MG Tablet GT ×2 (09:23→17:32)
[2024-02-19] MEDS: Ferrous Sulfate 325 MG Tablet GT ×2 (09:24→17:25)
[2024-02-19] MEDS: Lansoprazole 15 MG Capsule.DR 30 MG GT (09:24)
[2024-02-19] MEDS: Furosemide 40 MG Tablet GT (09:24)
[2024-02-19] MEDS: Carvedilol 12.5 MG Tablet GT ×2 (09:24→22:50)
[2024-02-19] MEDS: Amiodarone 200 MG Tablet GT (09:24)
[2024-02-19] MEDS: Menthol/Lanolin/Calamine/Znox 113 GM Tube 1 APPLIC TOPICAL ×2 (09:24→22:49)
[2024-02-19 12:02] LABS: Bedside Glucose 133 mg/dL (74-106)
[2024-02-19 17:17] LABS: Bedside Glucose 121 mg/dL (74-106)
[2024-02-19] MEDS: 0.9% Saline Lock 10 ML Syringe IV ×2 (17:25→22:58)
[2024-02-19] MEDS: Senna Tablet 2 TABLET GT (18:14)
[2024-02-19] MEDS: Polyethylene Glycol 3350 17 GM PACKET GT (18:14)
[2024-02-19] MEDS: traZODone 50 MG Tablet GT (22:50)
[2024-02-19] MEDS: Simvastatin 20 MG Tablet GT (22:50)
[2024-02-19 23:45] VITALS: O2SAT 94
[2024-02-20 00:31] LABS: Bedside Glucose 109 mg/dL (74-106)
[2024-02-20] MEDS: Jevity 1.5 1,000 ML 60 ML GT ×2 (01:07→20:32)
[2024-02-20 06:00] VITALS: BMI 29.2
[2024-02-20] MEDS: oxyCODONE 5 MG Tablet GT ×3 (06:10→20:38)
[2024-02-20] MEDS: Acetaminophen 650 MG/20 ML UDC 1000 MG GT ×3 (06:11→20:33)
[2024-02-20 07:05] VITALS: O2SAT 93
[2024-02-20 07:14] LABS: Bedside Glucose 121 mg/dL (74-106)
[2024-02-20 07:15] LABS: International Normalized Ratio 1.5; Prothrombin Time (Protime)PT. 17.7 SECONDS (11.7-14.9)
[2024-02-20] MEDS: Lansoprazole 15 MG Capsule.DR 30 MG GT (10:30)
[2024-02-20] MEDS: Ferrous Sulfate 325 MG Tablet GT ×2 (10:31→16:19)
[2024-02-20] MEDS: Menthol/Lanolin/Calamine/Znox 113 GM Tube 1 APPLIC TOPICAL ×2 (10:31→20:33)
[2024-02-20] MEDS: Carvedilol 12.5 MG Tablet GT ×2 (10:35→20:31)
[2024-02-20] MEDS: Amiodarone 200 MG Tablet GT (10:36)
[2024-02-20] MEDS: Furosemide 40 MG Tablet GT (10:36)
[2024-02-20] MEDS: traMADol 50 MG Tablet GT ×2 (10:40→23:47)
[2024-02-20] MEDS: 0.9% Saline Lock 10 ML Syringe IV ×2 (10:53→20:30)
[2024-02-20] MEDS: Senna Tablet 2 TABLET GT (11:03)
[2024-02-20 11:12] VITALS: BP 124/62; PULSE 60; O2SAT 99
[2024-02-20 11:23] LABS: Bedside Glucose 102 mg/dL (74-106)
[2024-02-20 15:28] VITALS: BP 105/41; PULSE 61; RESP 16; TEMP 36.7; O2SAT 98
[2024-02-20 16:35] VITALS: BP 112/64
[2024-02-20 18:05] LABS: Bedside Glucose 114 mg/dL (74-106)
--- NOTE | 2024-02-20 18:16 | NURSING ---
0 RESIDUAL, PEG TUBE PLACEMENT VERIFIED BY AUSCULTATION. PT TOLERATING MEDS AND TUBE FEED WELL.
[2024-02-20 20:15] VITALS: BP 104/50; PULSE 60; O2SAT 95
[2024-02-20] MEDS: traZODone 50 MG Tablet GT (20:31)
[2024-02-20] MEDS: Methocarbamol 500 MG Tablet GT (20:31)
[2024-02-20] MEDS: Simvastatin 20 MG Tablet GT (20:32)
[2024-02-20] MEDS: MELATONIN 3 MG TABLET GT (20:37)
[2024-02-20] MEDS: levoFLOXacin IV 750 MG/150 ML BAG 100 MG IV (20:41)
[2024-02-20] MEDS: 0.9% Normal Saline (250mL Bag) 250 ML 15 ML IV (20:48)
[2024-02-21] MEDS: Acetaminophen 650 MG/20 ML UDC 1000 MG GT (02:37)
[2024-02-21] MEDS: oxyCODONE 5 MG Tablet GT ×4 (02:38→22:38)
[2024-02-21 06:00] VITALS: BMI 29.4
[2024-02-21 06:47] LABS: Bedside Glucose 124 mg/dL (74-106)
--- NOTE | 2024-02-21 07:34 | RAD_ITS ---
HISTORY: Constipation. TECHNIQUE: XR Abdomen 1 View. COMPARISON: 02/12/2024. FINDINGS: BOWEL GAS PATTERN: Percutaneous gastrostomy tube in the left upper quadrant. Feeding tube removed. No dilated small bowel loops identified. Mild gaseous and stool distention of the colon with contrast in the descending rectosigmoid colon. FREE AIR: Not assessed on supine view. CALCIFICATIONS: No abnormal calcifications observed. BONES: Degenerative change. SOFT TISSUES: Cardiac pacemaker noted. Probable hiatal hernia. RAD/Abdomen Single View IMPRESSION: Non-obstructive bowel gas pattern. Mild stool and gaseous distention of the colon. Electronically Signed: Marisel Mcdonald MD at 8:53 EDT ,
[2024-02-21] MEDS: Amiodarone 200 MG Tablet GT (09:02)
[2024-02-21] MEDS: Ferrous Sulfate 325 MG Tablet GT ×2 (09:02→17:23)
[2024-02-21] MEDS: Carvedilol 12.5 MG Tablet GT ×2 (09:02→22:37)
[2024-02-21] MEDS: Lansoprazole 15 MG Capsule.DR 30 MG GT (09:02)
[2024-02-21] MEDS: Furosemide 40 MG Tablet GT (09:03)
[2024-02-21] MEDS: Petrolatum 33% Tube 1 APPLIC TOPICAL ×2 (09:10→22:39)
[2024-02-21] MEDS: Menthol/Lanolin/Calamine/Znox 113 GM Tube 1 APPLIC TOPICAL ×2 (09:10→22:39)
[2024-02-21 12:39] LABS: Bedside Glucose 136 mg/dL (74-106)
[2024-02-21 14:18] VITALS: BP 90/47; PULSE 61; RESP 16; TEMP 36.1; O2SAT 96
[2024-02-21] MEDS: Jevity 1.5 1,000 ML 60 ML GT (15:50)
[2024-02-21] MEDS: 0.9% Saline Lock 10 ML Syringe IV ×2 (17:24→22:37)
[2024-02-21 22:35] VITALS: BP 116/61; PULSE 79
[2024-02-21] MEDS: traZODone 50 MG Tablet GT (22:37)
[2024-02-21] MEDS: Simvastatin 20 MG Tablet GT (22:37)
[2024-02-22 01:23] LABS: Bedside Glucose 132 mg/dL (74-106)
[2024-02-22] MEDS: oxyCODONE 5 MG Tablet GT ×4 (05:17→20:57)
[2024-02-22 05:58] VITALS: BMI 29.2
[2024-02-22 06:49] LABS: Bedside Glucose 110 mg/dL (74-106)
--- NOTE | 2024-02-22 08:42 | NURSING ---
Senior Dentist Note; MDS for 02/22/2024 Complete
--- NOTE | 2024-02-22 09:06 | CASEMGMT ---
Social Work IDT met with patient and son for care plan meeting. Discussed patient's progress in PT/OT/ST/SN. Educated to [facility] insurance with NRD 02/26 and continued stay is not guaranteed with each review. Provided family with written communication on insurance process and copay coverage during stay. Broached topic of recommending SNF at time of DC d/t high LOF and x2 assist. Educated to OOP or JACKLYN coverage for SNF stay and part B therapies. Son stated he and his family would like to care for pt at home, instead of a SNF. Pt agreed. 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 DIL and children live at home and can assist. Son has contacts with [facility] who can assist when needed as well. SW offered for son and other family members to attend consistent therapy training to ensure he can care for pt at home. Son agreed and scheduled daily training. ST and Dietitian agreed to change tube feed from continuous to bolus. Son agreed to begin teaching with tube feeings and medication administration. Nursing notified. ASHLEIGH will continue to follow for DC planning. Betty Burrell, FAMILY MANAGER YARD RIGGER
[2024-02-22] MEDS: Ferrous Sulfate 325 MG Tablet GT ×2 (10:23→16:42)
[2024-02-22] MEDS: Menthol/Lanolin/Calamine/Znox 113 GM Tube 1 APPLIC TOPICAL ×2 (10:24→20:57)
[2024-02-22] MEDS: Furosemide 40 MG Tablet GT (10:24)
[2024-02-22] MEDS: Lansoprazole 15 MG Capsule.DR 30 MG GT (10:24)
[2024-02-22] MEDS: Carvedilol 12.5 MG Tablet GT (10:24)
[2024-02-22] MEDS: Amiodarone 200 MG Tablet GT (10:24)
[2024-02-22] MEDS: Petrolatum 33% Tube 1 APPLIC TOPICAL ×2 (10:25→21:12)
[2024-02-22 10:30] VITALS: BP 110/56; PULSE 60; O2SAT 94
[2024-02-22] MEDS: Jevity 1.5 1,000 ML 60 ML GT (10:50)
[2024-02-22] MEDS: 0.9% Saline Lock 10 ML Syringe IV ×3 (10:53→22:56)
[2024-02-22 11:49] VITALS: O2SAT 94
--- NOTE | 2024-02-22 13:56 | CASEMGMT ---
BIMS () and PHQ2 (0) interviews completed on this date for MDS assessment. DAVE Lara
--- NOTE | 2024-02-22 14:42 | CHAPLAIN ---
Type of Pastoral Visit ___ Initial Visit _x__ Follow-up Visit ___ On-call Visit ___ General Patient Visit ___ Spiritual Assessment ___ Family Conference ___ Bereavement ___ Rapid Response ___ Code Blue ___ Other (describe below) Pastoral Care Referral From _x__ Patient ___ Family ___ Nurse ___ Physician ___ [place] Manager ___ Seasonal Greenery Bundler ___ Other (describe below) Sacrament/Intervention _x__ Active listening ___ Anointing ___ Pentecostalism ___ Bereavement ___ Communion ___ Nicole exploration ___ ___ Life review _x__ Prayer ___ Reconciliation ___ Sacrament of Sick _x__ Supportive presence ___ Wedding ___ Other (describe below) Pastoral Comments follow up to patient who admits that he gets discouraged or depressed at long stay in the hospital; pt however is encouraged today that he had jello and it stayed down; presence and prayer given
[2024-02-22 14:50] VITALS: BP 114/60; PULSE 62; RESP 16; TEMP 36; O2SAT 96
--- NOTE | 2024-02-22 15:56 | NURSING ---
PT JEVITY CHANGED TO BOLUS X6 A DAY,240ML AND 90 ML FLUSH BEFORE AND AFTER. PER DIETARY AND SPEECH DUE TO FAMILY REQUESTING.
[2024-02-22] MEDS: Jevity 1.5. 1,000 ML Bottle 240 ML GT ×2 (16:43→19:26)
--- NOTE | 2024-02-22 17:07 | NURSING ---
PEG TUBE PLACEMENT VERIFIED BY AUSCULTATION, O RESIDUAL TODAY. PT TOLERATED FEED AND FLUSH WELL.
[2024-02-22 17:35] LABS: Bedside Glucose 91 mg/dL (74-106)
[2024-02-22] MEDS: Methocarbamol 500 MG Tablet GT (19:25)
[2024-02-22 19:40] VITALS: PULSE 64; RESP 16
[2024-02-22] MEDS: levoFLOXacin IV 750 MG/150 ML BAG 100 MG IV (21:03)
[2024-02-22] MEDS: 0.9% Normal Saline (250mL Bag) 250 ML 15 ML IV (21:03)
[2024-02-22] MEDS: traZODone 50 MG Tablet GT (21:11)
[2024-02-22] MEDS: Simvastatin 20 MG Tablet GT (21:12)
[2024-02-22 21:19] VITALS: BP 96/54; PULSE 67; RESP 16
[2024-02-22 21:37] LABS: Bedside Glucose 131 mg/dL (74-106)
[2024-02-23 00:22] LABS: Bedside Glucose 87 mg/dL (74-106)
[2024-02-23] MEDS: oxyCODONE 5 MG Tablet GT ×2 (01:00→06:31)
--- NOTE | 2024-02-23 05:04 | NURSING ---
Patient c/o difficulty sleeping, states takes trazodone at home, written communication left for Dr. Richardson regarding patient request for trazodone.
[2024-02-23 05:34] VITALS: BMI 63.8
[2024-02-23 06:05] LABS: International Normalized Ratio 1.4; Prothrombin Time (Protime)PT. 16.9 SECONDS (11.7-14.9)
[2024-02-23] MEDS: Jevity 1.5. 1,000 ML Bottle 240 ML GT ×4 (06:31→20:01)
[2024-02-23 06:38] LABS: Bedside Glucose 88 mg/dL (74-106)
--- NOTE | 2024-02-23 06:55 | NURSING ---
Patient continues to complain of 8/10 pain to right hip despite current Oxy order, patient is requesting stronger pain medication, written communication left for Dr. Richardson regarding patient request.
[2024-02-23 09:19] VITALS: BP 106/56; PULSE 61; RESP 17; TEMP 36.4; O2SAT 94
[2024-02-23] MEDS: Ferrous Sulfate 325 MG Tablet GT ×2 (09:23→17:15)
[2024-02-23] MEDS: Carvedilol 12.5 MG Tablet GT (09:23)
[2024-02-23] MEDS: Amiodarone 200 MG Tablet GT (09:23)
[2024-02-23] MEDS: Menthol/Lanolin/Calamine/Znox 113 GM Tube 1 APPLIC TOPICAL ×2 (09:23→20:17)
[2024-02-23] MEDS: Petrolatum 33% Tube 1 APPLIC TOPICAL ×2 (09:24→20:17)
[2024-02-23] MEDS: Lansoprazole 15 MG Capsule.DR 30 MG GT (09:24)
[2024-02-23] MEDS: Furosemide 40 MG Tablet GT (09:25)
--- NOTE | 2024-02-23 10:45 | NURSING ---
Addendum entered by Monica Vogel 02/23/24 11:29: Patient's son in with patient, inquiring about podiatry to address patient's toenails. Call placed to podiatry and per medical secretary teacher podiatry will come see patient while on unit. Communication left for Dr. Richardsno for podiatry consult. Son also requesting patient getting up to commode for elimination rather than using a urinal to increase patient's mobility. Nursing explained as long as it is OK'd by therapy nursing staff will encourage patient to do this. Son appreciative. Addendum entered by Monica Vogel 02/23/24 10:54: Son at bedside expressed concerns that bolus feedings 6x/day are too much for patient and patient feeling too full. Son asks to speak with metal drill operator. Call placed to metal drill operator, Elidia is not in today but spoke with another metal drill operator who will pass the message to Elidia. Updated son. Original Note: Per speech therapy, patient has been doing well with pureed foods. OK to try meds crushed in apple sauce. Speech also discussed concerns 6x/day bolus feedings are too much and patient is c/o feeling too full and having a lack of appetite. Will pass message to metal drill operator.
[2024-02-23 11:40] LABS: Bedside Glucose 100 mg/dL (74-106)
[2024-02-23] MEDS: oxyCODONE 5 MG Tablet 10 MG GT ×2 (13:59→20:30)
[2024-02-23] MEDS: 0.9% Saline Lock 10 ML Syringe IV ×2 (14:24→20:17)
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
[2024-02-23 16:56] LABS: Bedside Glucose 126 mg/dL (74-106)
[2024-02-23] MEDS: Jantoven 2 MG Tablet GT (17:15)
[2024-02-23 19:45] VITALS: PULSE 62; RESP 16
[2024-02-23 20:34] VITALS: BP 91/44; PULSE 62
[2024-02-23] MEDS: Simvastatin 20 MG Tablet GT (20:42)
[2024-02-23] MEDS: traZODone 100 MG Tablet GT (20:42)
[2024-02-23 21:36] LABS: Bedside Glucose 135 mg/dL (74-106)
[2024-02-24] MEDS: Jevity 1.5. 1,000 ML Bottle 240 ML GT ×3 (05:28→20:31)
[2024-02-24] MEDS: Polyethylene Glycol 3350 17 GM PACKET GT (05:28)
[2024-02-24 05:30] VITALS: BMI 29.2
--- NOTE | 2024-02-24 05:44 | NURSING ---
During feed administration this AM, Patient reported to this nurse he was full and has had enough. Patient tolerated an intake of 120ml/240ml of Jevity 1.5. Flushed PEG per order.
[2024-02-24 06:02] LABS: Absolute Lymphocyte Count 1.67 X10^3/uL (0.83-4.51); Absolute Neutrophil Count 2.9 X10^3/uL (2.0-7.7); Basophil# 0.01 X10^3/uL; Basophil% 0.2 % (0-1); Eosinophil# 0.17 X10^3/uL; Eosinophils% 3.2 % (0-5); Hematocrit 27.2 % (40-54); Hemoglobin 8.4 g/dL (13.0-16.5); Lymphocyte # 1.67 X10^3/ul (0.83-4.51); Lymphocyte % 31.6 % (19-41); Mean Corp Hgb Conc 30.9 g/dL (32-36); Mean Corpuscular Hgb 30.8 pg (27.0-32.0); Mean Corpuscular Volume 99.6 fL (80-94); Mean Platelet Vol. 10.1 fl (6.2-12.0); Monocyte# 0.41 X10^3/uL; Monocyte% 7.8 % (0-10); NRBC Flagged by Analyzer 0 % (0-5); Neutrophil # 2.94 X10^3/uL (2.7-7.7); Neutrophil % 55.5 % (47-70); Platelet Count 202 K/mm3 (150-450); RBC Distribution Width CV 14.1 % (11.6-14.6); RBC Distribution Width SD 50.5 fl (35.1-43.9); Red Blood Count 2.73 M/mm3 (4.6-6.2); White Blood Count 5.3 K/mm3 (4.4-11.0)
[2024-02-24 06:33] LABS: Bedside Glucose 103 mg/dL (74-106)
[2024-02-24 07:30] VITALS: O2SAT 95
[2024-02-24 09:53] LABS: Anion Gap 7 (5-15); BUN 43 mg/dL (7-18); BUN/Creat Ratio 15.2 RATIO (10-20); Calcium,Total 9.3 mg/dL (8.5-10.1); Chloride 101 mmol/L (98-107); Creatinine, Serum 2.83 mg/dL (0.70-1.30); EST Glomerular Filtration Rate 23 mL/min (>60); Est Glom Filt Rate - Afr Amer 27 mL/min (>60); Estimated Creatinine Clearance 22.72 ml/min; Glucose 92 mg/dL (74-106); Potassium 4.2 mmol/L (3.5-5.1); Sodium Level 136 mmol/L (136-145)
[2024-02-24] MEDS: Carvedilol 12.5 MG Tablet GT ×2 (10:18→20:33)
[2024-02-24] MEDS: Ferrous Sulfate 325 MG Tablet GT ×2 (10:18→17:34)
[2024-02-24] MEDS: oxyCODONE 5 MG Tablet 10 MG GT ×2 (10:18→20:31)
[2024-02-24] MEDS: Amiodarone 200 MG Tablet GT (10:18)
[2024-02-24] MEDS: Furosemide 40 MG Tablet GT (10:19)
[2024-02-24] MEDS: Lansoprazole 15 MG Capsule.DR 30 MG GT (10:19)
[2024-02-24] MEDS: Menthol/Lanolin/Calamine/Znox 113 GM Tube 1 APPLIC TOPICAL ×2 (10:21→20:30)
[2024-02-24] MEDS: Petrolatum 33% Tube 1 APPLIC TOPICAL ×2 (10:21→20:30)
[2024-02-24 11:29] LABS: Bedside Glucose 129 mg/dL (74-106)
[2024-02-24 12:24] VITALS: BP 102/48; PULSE 60; RESP 16; TEMP 36.2; O2SAT 95
--- NOTE | 2024-02-24 12:31 | PCM.CONS.GEN ---
Assessment & Plan Assessment/Plan (1) Tinea unguium: PLAN: Patient was examined and evaluated. All findings were discussed with the patient. All questions were answered to the patient satisfaction. Patient's chart reviewed. Patient's toenails 1 through 5 bilateral debrided down to and including normal limits with a sterile double-action nail nipper without incident. Patient expressed relief after debridement. Orders will be placed for bilateral Km bandages from sulcus of toes to mid calf to be worn whenever the patient is up and out of bed. Order will be given for ammonium lactate 12% to be applied twice daily for 30 days. Repeat as necessary. Medicine: On board, medical management GI: On board No plan for any surgical intervention to the bilateral lower extremity from a podiatric standpoint. Patient is cleared to discharge from a podiatry standpoint once cleared by medicine and GI medical team. Podiatry will sign off and follow from a distance. Please reach out to Dr. Gao with any questions or concerns. Thank you for patient consult! (2) Other specified peripheral vascular diseases: (3) Lymphedema: (4) Pain in toe of left foot: (5) Pain in right toe(s): (6) Xerosis cutis: HPI Consult Data Date of Consult: 02/24/24 HPI Narrative Reason for Consultation: Elongated toenails HPI Narrative: PEG BAEZ, is a 88 M who presents to [facility] ED with abdominal pain, nausea/vomiting. CT abdomen/pelvis showed dilated esophagus, large hiatal hernia, possible obstruction. Patient has been seen by Dr. Zhang who recommended EDG and has been being treated by gastrointestinal doctor since his admission on 02/09/2024. Patient has been getting consulted by PT/OT who is currently present in the room. Podiatry consulted for painful elongated toenails as well as bilateral leg swelling. Patient does admit to fall prior to his admission. Denies constitutional symptoms. Other pedal complaints at this time. [facility] Medical History Esophageal stenosis Esophageal achalasia Pleural effusion Hiatal hernia Nausea and vomiting Dysphagia GERD (gastroesophageal reflux disease) Ventricular tachycardia (paroxysmal) (03/2021) Non-ischemic cardiomyopathy History of non-ST elevation myocardial infarction (NSTEMI) (01/26/17) Arthritis Type 2 diabetes mellitus Old myocardial infarction Chronic systolic (congestive) heart failure Essential (primary) hypertension Paroxysmal atrial fibrillation Aortic valve calcification Atrioventricular block, Mobitz type 2 Atrioventricular block, complete Hyperlipidemia Chronic renal disease, stage 3, moderately decreased glomerular filtration rate between 30-59 mL/min/1.73 square meter Tachy-mary syndrome Home Medications ?Medication ?Instructions ?Recorded ?Last Taken ?Type simvastatin 20 mg tablet 20 mg feeding tube QHS cholesterol 01/24/17 02/09/24 History lowering carvedilol 25 mg tablet 25 mg feeding tube BID Heart 06/14/19 02/11/24 History warfarin 5 mg tablet (Coumadin) 2.5 mg feeding tube TUWEFR 04/21/20 02/15/24 17:47 History Anticoagulant acetaminophen 500 mg tablet 500 mg feeding tube Q8H PRN pain 03/02/21 02/09/24 History (Tylenol Extra Strength) (scale score 1-3) polyethylene glycol 3350 17 17 g feeding tube DAILY PRN 03/02/21 02/06/24 History gram/dose oral powder (Miralax) constipation trazodone 50 mg tablet 50 mg feeding tube QHS sleep 01/23/24 02/12/24 History amiodarone 200 mg tablet 200 mg feeding tube DAILY Blood 01/31/24 02/12/24 History pressure melatonin 3 mg tablet 3 mg feeding tube QHS PRN Sleep 01/31/24 Unknown History methocarbamol 500 mg tablet 500 mg feeding tube Q8H PRN Muscle 01/31/24 02/08/24 History spasms ondansetron 4 mg disintegrating 4 mg feeding tube Q8H PRN nausea 01/31/24 02/09/24 History tablet warfarin 1 mg tablet 1 mg feeding tube SUMOTHSA 01/31/24 02/09/24 History Anticoagulant sennosides 8.6 mg tablet (Senokot) 17.2 mg feeding tube DAILY PRN 02/09/24 Unknown History constipation enoxaparin 30 mg/0.3 mL 30 mg (0.3 mL) subcut DAILY blood 02/15/24 02/15/24 10:25 Rx subcutaneous syringe thinner #0 mL ferrous sulfate 325 mg (65 mg 325 mg feeding tube BID supplement 02/15/24 Unknown History iron) tablet furosemide 40 mg tablet (Lasix) 60 mg feeding tube DAILY fluid 02/15/24 Unknown History losartan 50 mg tablet 25 mg feeding tube DAILY BP 02/15/24 02/09/24 History menthol 0.44 %-zinc oxide 20.6 % 1 applic topical BID skin #0 grams 02/15/24 02/15/24 10:25 Rx topical ointment (Calmoseptine) omeprazole 20 mg capsule,delayed 40 mg feeding tube DAILY GERD 02/15/24 02/09/24 History release Allergy/AdvReac Type Severity Reaction Status Date / Time lisinopril Allergy Severe rash Verified 02/09/24 20:00 amlodipine Allergy Intermediate Rash Verified 02/09/24 20:00 atorvastatin (From Lipitor) Allergy Unknown Verified 02/09/24 20:00 doxazosin Allergy Unknown Verified 02/09/24 20:00 hydrochlorothiazide Allergy Unknown Verified 02/09/24 20:00 niacin (From Niaspan Allergy Unknown Verified 02/09/24 20:00 Extended-Release) propranolol (From Inderal LA) Allergy Unknown Verified 02/09/24 20:00 quinine Allergy Unknown Verified 02/09/24 20:00 tamsulosin (From Flomax) Allergy Unknown Verified 02/09/24 20:00 verapamil (From Calan) Allergy Unknown Verified 02/09/24 20:00 Family History Father CAD (coronary artery disease) Brother CAD (coronary artery disease) Surgical History Hx of colonoscopy History of esophagogastroduodenoscopy (EGD) History of open reduction and internal fixation (ORIF) procedure History of loop recorder Cardiac pacemaker in situ (01/26/17) Social History household members: none housing: [facility] Smoking Status: Former smoker how long ago did patient quit smokin alcohol intake: current alcohol intake frequency: a few times a week Alcohol type: hard liquor substance use type: does not use caffeine: Yes Type: coffee Number of servings: 3 what type of physical activity do you participate in: none seatbelt use: always do you feel safe at home: Yes Physical Exam Narrative Vascular: DP and PT pulses are faintly palpable secondary to edema. CFT is brisk. +1 pitting edema appreciated bilateral lower extremity. Evidence of hemosiderin deposits and dependent edema. Neurological: Light touch intact. Patient does respond to painful stimuli. Dermatological: Toenails 1 through 5 are thickened elongated discolored with evidence of supple debris's. Evidence of xerotic tissue appreciated to the plantar foot. Webspaces 1 through 4 are clean dry and intact. No open lesion or abrasions are appreciated. Musculoskeletal: Mild pain on palpation to toenails 1 through 5 bilateral. No pain on palpation to the lower extremity. No pain with calf pressure bilateral. Const alert, oriented x3 and no apparent distress Lab / Micro Data 02/24/24 05:33 02/24/24 05:33 Labs: Laboratory Results - last 24 hr 02/23/24 16:23: POC Glucose 126 H 02/23/24 21:09: POC Glucose 135 H 02/24/24 05:33: WBC 5.3, RBC 2.73 L, Hgb 8.4 L, Hct 27.2 L, MCV 99.6 H, MCH 30.8, MCHC 30.9 L, RDW Std Deviation 50.5 H, RDW Coeff of Noa 14.1, Plt Count 202, MPV 10.1, Immature Gran % (Auto) 1.700 H, Neut % (Auto) 55.5, Lymph % (Auto) 31.6, [place] % (Auto) 7.8, Eos % (Auto) 3.2, Baso % (Auto) 0.2, Absolute Neuts (auto) 2.9, Absolute Lymphs (auto) 1.67, Nucleated RBC % 0, Sodium 136, Potassium 4.2, Chloride 101, Carbon Dioxide 28.0, Anion Gap 7, BUN 43 H, Creatinine 2.83 H, Estim Creat Clear Calc 22.72, Est GFR (MDRD) Af Amer 27 L, Est GFR (MDRD) Non-Af 23 L, BUN/Creatinine Ratio 15.2, Glucose 92, Calcium 9.3 02/24/24 06:13: POC Glucose 103 02/24/24 11:11: POC Glucose 129 H
--- NOTE | 2024-02-24 13:37 | WOUNDNOTE ---
wound photo: left heel
[2024-02-24] MEDS: Ensure Plus High Protein 120 ML LIQUID PO ×2 (15:18→20:31)
[2024-02-24] MEDS: Senna/Docusate Sodium 1 Tablet 2 TABLET GT ×2 (15:19→20:32)
[2024-02-24 16:29] LABS: Bedside Glucose 106 mg/dL (74-106)
[2024-02-24] MEDS: Jantoven 2 MG Tablet GT (17:34)
[2024-02-24 20:00] VITALS: PULSE 62; RESP 18; O2SAT 98
[2024-02-24] MEDS: traZODone 100 MG Tablet GT (20:32)
[2024-02-24] MEDS: Simvastatin 20 MG Tablet GT (20:33)
[2024-02-24] MEDS: Ammonium Lactate 225 gm Bottle 1 APPLIC TOPICAL (20:47)
[2024-02-24 20:50] VITALS: BP 112/54; PULSE 62; RESP 16
[2024-02-24 21:48] LABS: Bedside Glucose 157 mg/dL (74-106)
[2024-02-25 06:00] VITALS: BMI 28.4
[2024-02-25 06:27] LABS: Bedside Glucose 110 mg/dL (74-106)
[2024-02-25 08:54] VITALS: O2SAT 95
[2024-02-25] MEDS: Menthol/Lanolin/Calamine/Znox 113 GM Tube 1 APPLIC TOPICAL ×2 (09:21→20:32)
[2024-02-25] MEDS: Ferrous Sulfate 325 MG Tablet GT ×2 (09:23→17:37)
[2024-02-25] MEDS: Carvedilol 12.5 MG Tablet GT ×2 (09:23→20:31)
[2024-02-25] MEDS: Amiodarone 200 MG Tablet GT (09:23)
[2024-02-25] MEDS: Furosemide 40 MG Tablet GT (09:24)
[2024-02-25] MEDS: Lansoprazole 15 MG Capsule.DR 30 MG GT (09:24)
[2024-02-25] MEDS: Senna/Docusate Sodium 1 Tablet 2 TABLET GT ×2 (09:25→20:32)
[2024-02-25] MEDS: Ammonium Lactate 225 gm Bottle 1 APPLIC TOPICAL ×2 (09:25→20:31)
[2024-02-25] MEDS: oxyCODONE 5 MG Tablet 10 MG GT ×2 (09:30→20:35)
[2024-02-25 09:38] VITALS: BP 110/59; PULSE 61; O2SAT 96
[2024-02-25 10:02] VITALS: O2SAT 96
[2024-02-25 11:30] VITALS: PULSE 61; RESP 18; O2SAT 96
[2024-02-25 12:29] LABS: Bedside Glucose 113 mg/dL (74-106)
[2024-02-25 16:00] VITALS: BP 97/47; PULSE 63; RESP 14; TEMP 36.7; O2SAT 97
[2024-02-25] MEDS: Jantoven 2 MG Tablet GT (17:38)
[2024-02-25 18:16] LABS: Bedside Glucose 106 mg/dL (74-106)
[2024-02-25] MEDS: Magnesium Citrate 300 ML GT (18:39)
--- NOTE | 2024-02-25 18:45 | NURSING ---
PT ATE OVER 50% FOR ALL MEALS AND TOOK MEDS BY MOUTH WITH OUT ANY PROBLEMS. PT HAS NOT HAD A BM IN 4 DAYS. PEG PLACEMENT VERIFIED, PRN MAG CITRATE GIVEN THREW PEG.
[2024-02-25 20:25] VITALS: BP 107/59; PULSE 60
[2024-02-25] MEDS: traZODone 100 MG Tablet GT (20:31)
[2024-02-25] MEDS: Simvastatin 20 MG Tablet GT (20:32)
[2024-02-25 22:15] LABS: Bedside Glucose 124 mg/dL (74-106)
--- NOTE | 2024-02-25 22:21 | NURSING ---
PEG flushed per order, intact and patent.
[2024-02-26 05:42] VITALS: BMI 28.3
[2024-02-26 06:42] LABS: Bedside Glucose 99 mg/dL (74-106)
[2024-02-26 09:55] VITALS: BP 108/54; PULSE 60; O2SAT 95
[2024-02-26] MEDS: Menthol/Lanolin/Calamine/Znox 113 GM Tube 1 APPLIC TOPICAL ×2 (09:57→20:31)
[2024-02-26] MEDS: Ferrous Sulfate 325 MG Tablet GT ×2 (09:58→16:37)
[2024-02-26] MEDS: Furosemide 40 MG Tablet GT (09:59)
[2024-02-26] MEDS: Amiodarone 200 MG Tablet GT (09:59)
[2024-02-26] MEDS: Senna/Docusate Sodium 1 Tablet 2 TABLET GT ×2 (09:59→20:33)
[2024-02-26] MEDS: Carvedilol 12.5 MG Tablet GT ×2 (09:59→20:31)
[2024-02-26] MEDS: Ammonium Lactate 225 gm Bottle 1 APPLIC TOPICAL ×2 (10:00→20:34)
[2024-02-26] MEDS: Lansoprazole 15 MG Capsule.DR 30 MG GT (10:00)
[2024-02-26] MEDS: oxyCODONE 5 MG Tablet 10 MG GT ×2 (10:07→20:30)
[2024-02-26 12:11] LABS: Bedside Glucose 119 mg/dL (74-106)
[2024-02-26 16:00] VITALS: BP 93/52; PULSE 62; RESP 16; TEMP 36.9; O2SAT 97
[2024-02-26] MEDS: Jantoven 2 MG Tablet GT (16:37)
[2024-02-26 16:51] LABS: Bedside Glucose 105 mg/dL (74-106)
[2024-02-26] MEDS: traZODone 100 MG Tablet GT (20:31)
[2024-02-26] MEDS: Simvastatin 20 MG Tablet GT (20:33)
[2024-02-26] MEDS: 0.9% Saline Lock 10 ML Syringe IV (20:35)
[2024-02-26 20:40] VITALS: PULSE 61; RESP 17; O2SAT 97
[2024-02-26 20:46] VITALS: BP 107/52; PULSE 61
[2024-02-26 22:20] LABS: Bedside Glucose 112 mg/dL (74-106)
[2024-02-27 06:00] VITALS: BMI 28.2
[2024-02-27 06:05] LABS: International Normalized Ratio 1.5
[2024-02-27 06:19] LABS: Bedside Glucose 92 mg/dL (74-106)
[2024-02-27] MEDS: oxyCODONE 5 MG Tablet 10 MG GT ×2 (09:33→18:05)
[2024-02-27] MEDS: Ferrous Sulfate 325 MG Tablet GT ×2 (10:30→18:04)
[2024-02-27] MEDS: Amiodarone 200 MG Tablet GT (10:30)
[2024-02-27] MEDS: Carvedilol 12.5 MG Tablet GT ×2 (10:30→20:23)
[2024-02-27] MEDS: Senna/Docusate Sodium 1 Tablet 2 TABLET GT ×2 (10:31→20:24)
[2024-02-27] MEDS: Lansoprazole 15 MG Capsule.DR 30 MG GT (10:31)
[2024-02-27] MEDS: Furosemide 40 MG Tablet GT (10:31)
[2024-02-27] MEDS: Menthol/Lanolin/Calamine/Znox 113 GM Tube 1 APPLIC TOPICAL ×2 (10:31→20:24)
[2024-02-27] MEDS: Ammonium Lactate 225 gm Bottle 1 APPLIC TOPICAL ×2 (10:32→20:25)
--- NOTE | 2024-02-27 11:01 | MDS.RN ---
Information for the MDS was obtained from review of the clinical record, interview of resident, staff, and direct observation of resident?s care.
[2024-02-27 11:22] LABS: Bedside Glucose 109 mg/dL (74-106)
[2024-02-27 13:55] VITALS: BP 103/56; PULSE 60; RESP 16; TEMP 36.1; O2SAT 94
[2024-02-27 17:13] LABS: Bedside Glucose 130 mg/dL (74-106)
[2024-02-27] MEDS: 0.9% Saline Lock 10 ML Syringe IV (18:07)
[2024-02-27] MEDS: Simvastatin 20 MG Tablet GT (20:24)
[2024-02-27] MEDS: traZODone 100 MG Tablet GT (20:24)
[2024-02-27 20:29] VITALS: BP 108/58; PULSE 60
[2024-02-27 21:29] LABS: Bedside Glucose 116 mg/dL (74-106)
[2024-02-28 06:00] VITALS: BMI 27.9
[2024-02-28 06:42] LABS: Bedside Glucose 95 mg/dL (74-106)
[2024-02-28] MEDS: Ferrous Sulfate 325 MG Tablet GT ×2 (09:06→17:08)
[2024-02-28] MEDS: Amiodarone 200 MG Tablet GT (09:07)
[2024-02-28] MEDS: Menthol/Lanolin/Calamine/Znox 113 GM Tube 1 APPLIC TOPICAL ×2 (09:07→22:03)
[2024-02-28] MEDS: Senna/Docusate Sodium 1 Tablet 2 TABLET GT ×2 (09:08→22:07)
[2024-02-28] MEDS: Furosemide 40 MG Tablet GT (09:08)
[2024-02-28] MEDS: Lansoprazole 15 MG Capsule.DR 30 MG GT (09:08)
[2024-02-28] MEDS: Carvedilol 12.5 MG Tablet GT ×2 (09:08→22:07)
[2024-02-28] MEDS: oxyCODONE 5 MG Tablet 10 MG GT (09:11)
[2024-02-28] MEDS: Ammonium Lactate 225 gm Bottle 1 APPLIC TOPICAL ×2 (09:12→21:54)
[2024-02-28 09:28] VITALS: BP 109/61; PULSE 63; O2SAT 96
[2024-02-28 10:00] VITALS: BP 109/61; BP 132/64; BP 85/49; PULSE 61; PULSE 62; PULSE 63; PULSE 86; RESP 16; O2SAT 97
[2024-02-28 10:38] VITALS: O2SAT 99
[2024-02-28 11:27] LABS: Bedside Glucose 126 mg/dL (74-106)
[2024-02-28 13:45] VITALS: BP 103/84; PULSE 62; RESP 16; TEMP 36.3; O2SAT 98
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
--- NOTE | 2024-02-28 14:08 | NURSING ---
PT COMPLAINED OF DIZZINESS WHEN STANDING. ORTHOSTATIC VITALS DONE AND RECORDED. DR. GUZMÁN NOTIFIED.
[2024-02-28 17:24] LABS: Bedside Glucose 105 mg/dL (74-106)
[2024-02-28] MEDS: 0.9% Normal Saline (1000mL) 1,000 ML 75 ML IV (18:02)
--- NOTE | 2024-02-28 19:36 | NURSING ---
NEW ORDER FOR NORMAL SALINE AT 75 ML/HR. DUE TO DIZZINESS AND ORTHOSTATIC VITAL RESULTS.
[2024-02-28 22:00] VITALS: BP 117/60; PULSE 61; RESP 18; O2SAT 97
[2024-02-28 22:04] LABS: Bedside Glucose 116 mg/dL (74-106)
[2024-02-28] MEDS: traZODone 100 MG Tablet GT (22:07)
[2024-02-28] MEDS: Simvastatin 20 MG Tablet GT (22:07)
[2024-02-28] MEDS: Methocarbamol 500 MG Tablet GT (22:30)
[2024-02-29] MEDS: oxyCODONE 5 MG Tablet 10 MG GT ×2 (04:06→17:41)
[2024-02-29 06:00] VITALS: BMI 29.4
[2024-02-29 06:28] LABS: Bedside Glucose 84 mg/dL (74-106)
[2024-02-29] MEDS: 0.9% Normal Saline (1000mL) 1,000 ML 75 ML IV ×2 (06:45→19:55)
[2024-02-29 07:10] VITALS: O2SAT 93
[2024-02-29] MEDS: Amiodarone 200 MG Tablet GT (08:40)
[2024-02-29] MEDS: Ferrous Sulfate 325 MG Tablet GT ×2 (08:40→17:42)
[2024-02-29] MEDS: Lansoprazole 15 MG Capsule.DR 30 MG GT (08:41)
[2024-02-29] MEDS: Senna/Docusate Sodium 1 Tablet 2 TABLET GT ×2 (08:42→19:56)
[2024-02-29] MEDS: Ammonium Lactate 225 gm Bottle 1 APPLIC TOPICAL ×2 (08:45→20:00)
[2024-02-29] MEDS: Menthol/Lanolin/Calamine/Znox 113 GM Tube 1 APPLIC TOPICAL ×2 (08:45→19:57)
[2024-02-29 11:39] LABS: Bedside Glucose 106 mg/dL (74-106)
[2024-02-29 14:23] VITALS: BP 109/58; PULSE 61; RESP 14; TEMP 36.8; O2SAT 96
[2024-02-29] MEDS: Magnesium Citrate 300 ML GT (17:42)
[2024-02-29 18:01] LABS: Bedside Glucose 113 mg/dL (74-106)
[2024-02-29] MEDS: traMADol 50 MG Tablet GT (19:54)
[2024-02-29] MEDS: traZODone 100 MG Tablet GT (19:56)
[2024-02-29] MEDS: Carvedilol 12.5 MG Tablet GT (19:57)
[2024-02-29] MEDS: Simvastatin 20 MG Tablet GT (19:57)
[2024-02-29 21:47] LABS: Bedside Glucose 104 mg/dL (74-106)
[2024-03-01 05:11] VITALS: BMI 28.6
[2024-03-01 06:23] LABS: Bedside Glucose 82 mg/dL (74-106)
[2024-03-01 06:35] VITALS: O2SAT 92
[2024-03-01 06:55] LABS: International Normalized Ratio 1.7; Prothrombin Time (Protime)PT. 19.6 SECONDS (11.7-14.9)
[2024-03-01] MEDS: oxyCODONE 5 MG Tablet 10 MG GT ×3 (08:38→20:18)
[2024-03-01] MEDS: Amiodarone 200 MG Tablet GT (08:39)
[2024-03-01] MEDS: Lansoprazole 15 MG Capsule.DR 30 MG GT (08:39)
[2024-03-01] MEDS: Ferrous Sulfate 325 MG Tablet GT ×2 (08:39→18:06)
[2024-03-01] MEDS: Senna/Docusate Sodium 1 Tablet 2 TABLET GT ×2 (08:39→20:19)
[2024-03-01] MEDS: FLU VACCINE **HIGH DOSE** TV 24-25 180 MCG/0.5 ML SYRINGE IM (08:39)
[2024-03-01] MEDS: Ammonium Lactate 225 gm Bottle 1 APPLIC TOPICAL ×2 (08:51→20:20)
[2024-03-01] MEDS: Carvedilol 12.5 MG Tablet GT ×2 (08:51→20:19)
[2024-03-01] MEDS: Menthol/Lanolin/Calamine/Znox 113 GM Tube 1 APPLIC TOPICAL ×2 (08:51→20:19)
[2024-03-01] MEDS: 0.9% Normal Saline (1000mL) 1,000 ML 75 ML IV ×2 (09:33→22:57)
--- NOTE | 2024-03-01 10:20 | WOUNDNOTE ---
wound photo: left heel
[2024-03-01 11:31] LABS: Bedside Glucose 104 mg/dL (74-106)
[2024-03-01 16:00] VITALS: BP 116/78; PULSE 62; RESP 12; TEMP 36.4; O2SAT 96
[2024-03-01 17:08] LABS: Bedside Glucose 92 mg/dL (74-106)
[2024-03-01] MEDS: Warfarin (BKC) 3 MG Tablet GT (18:06)
[2024-03-01] MEDS: traMADol 50 MG Tablet GT (18:06)
[2024-03-01 20:00] VITALS: BP 127/71; PULSE 66; RESP 16; O2SAT 97
[2024-03-01] MEDS: Simvastatin 20 MG Tablet GT (20:19)
[2024-03-01] MEDS: traZODone 100 MG Tablet GT (20:19)
--- NOTE | 2024-03-01 20:29 | NURSING ---
No BM since 02/25, patient requesting soap suds enema, states nothing else works but the enema. Dr. Richardson notified via telephone, new order received for soap suds enema x1
--- NOTE | 2024-03-01 21:00 | NURSING ---
Patient refused HS Jevity dose, A&Ox4, states I don't need it, I'm still full from dinner,accepts flush as ordered.
[2024-03-01 21:52] LABS: Bedside Glucose 98 mg/dL (74-106)
[2024-03-01 23:00] VITALS: PULSE 98; RESP 16
[2024-03-02 05:49] VITALS: BMI 28.8
[2024-03-02] MEDS: oxyCODONE 5 MG Tablet 10 MG GT ×2 (06:04→20:43)
[2024-03-02 06:06] LABS: Absolute Lymphocyte Count 1.39 X10^3/uL (0.83-4.51); Basophil# 0.03 X10^3/uL; Basophil% 0.6 % (0-1); Eosinophil# 0.21 X10^3/uL; Eosinophils% 4.1 % (0-5); Hematocrit 27.2 % (40-54); Hemoglobin 8.2 g/dL (13.0-16.5); Lymphocyte # 1.39 X10^3/ul (0.83-4.51); Lymphocyte % 27.2 % (19-41); Mean Corp Hgb Conc 30.1 g/dL (32-36); Mean Corpuscular Hgb 30.4 pg (27.0-32.0); Mean Corpuscular Volume 100.7 fL (80-94); Mean Platelet Vol. 9.4 fl (6.2-12.0); Monocyte# 0.45 X10^3/uL; Monocyte% 8.8 % (0-10); NRBC Flagged by Analyzer 0 % (0-5); Neutrophil # 2.98 X10^3/uL (2.7-7.7); Neutrophil % 58.3 % (47-70); Platelet Count 248 K/mm3 (150-450); RBC Distribution Width CV 13.5 % (11.6-14.6); RBC Distribution Width SD 49.6 fl (35.1-43.9); White Blood Count 5.1 K/mm3 (4.4-11.0)
[2024-03-02 06:35] LABS: Bedside Glucose 78 mg/dL (74-106)
[2024-03-02 06:37] LABS: Anion Gap 4 (5-15); BUN 29 mg/dL (7-18); BUN/Creat Ratio 14.5 RATIO (10-20); Calcium,Total 8.3 mg/dL (8.5-10.1); Chloride 106 mmol/L (98-107); EST Glomerular Filtration Rate 34 mL/min (>60); Est Glom Filt Rate - Afr Amer 41 mL/min (>60); Estimated Creatinine Clearance 31.89 ml/min; Glucose 86 mg/dL (74-106); Potassium 4.4 mmol/L (3.5-5.1); Sodium Level 138 mmol/L (136-145)
[2024-03-02] MEDS: Ferrous Sulfate 325 MG Tablet GT ×2 (08:06→18:27)
[2024-03-02] MEDS: Amiodarone 200 MG Tablet GT (09:24)
[2024-03-02] MEDS: Lansoprazole 15 MG Capsule.DR 30 MG GT (09:25)
[2024-03-02] MEDS: Carvedilol 12.5 MG Tablet GT ×2 (09:25→20:45)
[2024-03-02] MEDS: Senna/Docusate Sodium 1 Tablet 2 TABLET GT ×2 (09:25→21:54)
[2024-03-02] MEDS: Cephalexin Suspension 250 MG/5 ML PO.SYRINGE 500 MG GT ×2 (09:27→20:49)
[2024-03-02] MEDS: Doxycycline 100 MG CAPSULE GT ×2 (09:33→20:45)
[2024-03-02] MEDS: Ammonium Lactate 225 gm Bottle 1 APPLIC TOPICAL ×2 (09:34→20:46)
[2024-03-02] MEDS: Menthol/Lanolin/Calamine/Znox 113 GM Tube 1 APPLIC TOPICAL ×2 (09:38→20:43)
[2024-03-02 10:30] VITALS: BP 109/52; PULSE 60; RESP 18; TEMP 36.2; O2SAT 96
--- NOTE | 2024-03-02 10:48 | NURSING ---
N.O. to stop IV fluids and obtain Doppler of LLE. Fluids stopped. IV site to RFA intact, no s/sx infection. LLE red, warm to touch. Patient denies any pain.
[2024-03-02 11:21] LABS: Bedside Glucose 90 mg/dL (74-106)
[2024-03-02 15:32] VITALS: PULSE 60; RESP 16
[2024-03-02 16:54] VITALS: O2SAT 94
[2024-03-02 17:09] LABS: Bedside Glucose 99 mg/dL (74-106)
[2024-03-02] MEDS: Warfarin (BKC) 3 MG Tablet GT (18:27)
--- NOTE | 2024-03-02 18:31 | NURSING ---
pt c/o feeling bloated, declined supper & refused jevity this evening. will update third shift lieutenant in report. pt pleasant, sitting up in chair. no BM today but did have SSE yesterday with XLG results per staff.
--- NOTE | 2024-03-02 19:16 | RAD_ITS ---
STUDY: X-RAY - ABDOMEN/PELVIS REASON FOR EXAM: Male, 88 years old. Bloating, nausea TECHNIQUE: Frontal views COMPARISON: None. FINDINGS: Left basilar effusion and possible infiltrate. There is an unremarkable bowel gas pattern. There is no demonstrated free abdominal air. Small calcific foci over the left renal shadow. There is a PEG tube noted over the stomach. Vascular calcifications. Normal soft tissue structures. Degenerative vertebral changes. RAD/Abdomen Single View IMPRESSION: Small calcific foci over the left renal shadow.Left basilar effusion and possible infiltrate. Electronically Signed: Cordell Reilly DO at 19:32 EDT ,
[2024-03-02] MEDS: traZODone 100 MG Tablet GT (20:44)
[2024-03-02 20:54] VITALS: BP 123/62; PULSE 60
[2024-03-02 21:51] LABS: Bedside Glucose 102 mg/dL (74-106)
[2024-03-02] MEDS: Simvastatin 20 MG Tablet GT (21:54)
[2024-03-03] MEDS: oxyCODONE 5 MG Tablet 10 MG GT ×2 (05:40→20:18)
[2024-03-03 05:51] VITALS: PULSE 61; RESP 17; O2SAT 92
[2024-03-03 05:57] VITALS: BMI 28.7
[2024-03-03 06:44] LABS: Bedside Glucose 75 mg/dL (74-106)
[2024-03-03 09:49] VITALS: O2SAT 98
[2024-03-03 10:36] VITALS: BP 120/61; PULSE 60; RESP 16; TEMP 36.1; O2SAT 97
[2024-03-03] MEDS: Polyethylene Glycol 3350 17 GM PACKET GT ×2 (10:44→21:42)
[2024-03-03] MEDS: 0.9% Saline Lock 10 ML Syringe IV (10:44)
[2024-03-03] MEDS: Electrolyte Solution/Peg's 4000 ML 500 ML PO (10:48)
[2024-03-03] MEDS: Amiodarone 200 MG Tablet GT (10:52)
[2024-03-03] MEDS: Lansoprazole 15 MG Capsule.DR 30 MG GT (10:52)
[2024-03-03] MEDS: Ferrous Sulfate 325 MG Tablet GT ×2 (10:52→16:32)
[2024-03-03] MEDS: Senna/Docusate Sodium 1 Tablet 2 TABLET GT ×2 (10:52→21:42)
[2024-03-03] MEDS: Carvedilol 12.5 MG Tablet GT (10:52)
[2024-03-03] MEDS: Cephalexin Suspension 250 MG/5 ML PO.SYRINGE 500 MG GT ×2 (10:52→21:47)
[2024-03-03] MEDS: Menthol/Lanolin/Calamine/Znox 113 GM Tube 1 APPLIC TOPICAL ×2 (10:52→21:43)
[2024-03-03] MEDS: Doxycycline 100 MG CAPSULE GT ×2 (10:52→21:42)
[2024-03-03] MEDS: Ammonium Lactate 225 gm Bottle 1 APPLIC TOPICAL ×2 (10:53→21:44)
[2024-03-03 11:11] VITALS: O2SAT 98
[2024-03-03 11:30] LABS: Bedside Glucose 118 mg/dL (74-106)
--- NOTE | 2024-03-03 11:44 | NURSING ---
Dr Richardson notified of KUB results. Dr. Richardson perviously ordered mag citrate, pt refused. Pt reported mag citrate does not work and makes him nauseous. Pt requesting SSE. Dr Richardson aware ordered Nulytely 500mL. Dr Richardson reported the stool is higher than the SSE can reach and pt needs to drink substance. Dr. Richardson notified of Doppler, NNO.
[2024-03-03] MEDS: Warfarin (BKC) 3 MG Tablet GT (16:32)
[2024-03-03 16:43] LABS: Bedside Glucose 134 mg/dL (74-106)
[2024-03-03 21:42] LABS: Bedside Glucose 123 mg/dL (74-106)
[2024-03-03] MEDS: traZODone 100 MG Tablet GT (21:42)
[2024-03-03] MEDS: Simvastatin 20 MG Tablet GT (21:42)
[2024-03-03] MEDS: MELATONIN 3 MG TABLET GT (21:47)
[2024-03-04 05:55] VITALS: BMI 28.9
[2024-03-04 06:40] LABS: Bedside Glucose 84 mg/dL (74-106)
[2024-03-04 08:06] VITALS: BP 115/58; PULSE 63; RESP 16; TEMP 36.2; O2SAT 94
[2024-03-04] MEDS: Polyethylene Glycol 3350 17 GM PACKET GT ×2 (08:07→22:15)
[2024-03-04] MEDS: Ferrous Sulfate 325 MG Tablet GT ×2 (08:07→17:35)
[2024-03-04] MEDS: Amiodarone 200 MG Tablet GT (08:07)
[2024-03-04] MEDS: Menthol/Lanolin/Calamine/Znox 113 GM Tube 1 APPLIC TOPICAL ×2 (08:08→22:16)
[2024-03-04] MEDS: Senna/Docusate Sodium 1 Tablet 2 TABLET GT ×2 (08:08→22:15)
[2024-03-04] MEDS: Carvedilol 12.5 MG Tablet GT ×2 (08:08→22:14)
[2024-03-04] MEDS: Lansoprazole 15 MG Capsule.DR 30 MG GT (08:08)
[2024-03-04] MEDS: Doxycycline 100 MG CAPSULE GT ×2 (08:08→22:14)
[2024-03-04] MEDS: Ammonium Lactate 225 gm Bottle 1 APPLIC TOPICAL ×2 (08:09→22:16)
[2024-03-04] MEDS: Cephalexin Suspension 250 MG/5 ML PO.SYRINGE 500 MG GT ×2 (08:15→22:12)
[2024-03-04 11:39] LABS: Bedside Glucose 96 mg/dL (74-106)
[2024-03-04 17:27] LABS: Bedside Glucose 103 mg/dL (74-106)
[2024-03-04] MEDS: Warfarin (BKC) 3 MG Tablet GT (17:35)
[2024-03-04 21:46] LABS: Bedside Glucose 108 mg/dL (74-106)
[2024-03-04 22:00] VITALS: BP 122/61; PULSE 61
[2024-03-04] MEDS: oxyCODONE 5 MG Tablet 10 MG GT (22:12)
[2024-03-04] MEDS: Simvastatin 20 MG Tablet GT (22:14)
[2024-03-04] MEDS: traZODone 100 MG Tablet GT (22:15)
[2024-03-04 22:30] VITALS: PULSE 61; RESP 16; O2SAT 99
[2024-03-05 05:24] VITALS: BMI 28.8
[2024-03-05 06:09] LABS: International Normalized Ratio 2.2; Prothrombin Time (Protime)PT. 24.4 SECONDS (11.7-14.9)
[2024-03-05 07:22] LABS: Bedside Glucose 86 mg/dL (74-106)
[2024-03-05 08:00] VITALS: BP 120/60; PULSE 67; RESP 16; TEMP 36.3; O2SAT 96
[2024-03-05] MEDS: Amiodarone 200 MG Tablet GT (08:05)
[2024-03-05] MEDS: Ferrous Sulfate 325 MG Tablet GT ×2 (08:05→16:30)
[2024-03-05] MEDS: Carvedilol 12.5 MG Tablet GT ×2 (08:05→22:11)
[2024-03-05] MEDS: Menthol/Lanolin/Calamine/Znox 113 GM Tube 1 APPLIC TOPICAL ×2 (08:05→22:10)
[2024-03-05] MEDS: Doxycycline 100 MG CAPSULE GT ×2 (08:06→22:11)
[2024-03-05] MEDS: Ammonium Lactate 225 gm Bottle 1 APPLIC TOPICAL ×2 (08:06→22:12)
[2024-03-05] MEDS: Senna/Docusate Sodium 1 Tablet 2 TABLET GT ×2 (08:07→22:11)
[2024-03-05] MEDS: Polyethylene Glycol 3350 17 GM PACKET GT ×2 (08:07→22:12)
[2024-03-05] MEDS: Lansoprazole 15 MG Capsule.DR 30 MG GT (08:07)
[2024-03-05] MEDS: Cephalexin Suspension 250 MG/5 ML PO.SYRINGE 500 MG GT ×2 (08:10→22:10)
[2024-03-05] MEDS: oxyCODONE 5 MG Tablet 10 MG GT ×3 (08:10→22:09)
[2024-03-05 08:27] VITALS: O2SAT 96
[2024-03-05 09:45] VITALS: O2SAT 97
[2024-03-05 14:30] VITALS: O2SAT 96
[2024-03-05] MEDS: Warfarin (BKC) 3 MG Tablet GT (16:34)
[2024-03-05] MEDS: Arthritis Pain Compound 60 CLICK TUBE TOPICAL (22:10)
[2024-03-05] MEDS: traZODone 100 MG Tablet GT (22:11)
[2024-03-05] MEDS: Simvastatin 20 MG Tablet GT (22:11)
[2024-03-05 22:33] VITALS: BP 131/63; PULSE 60
[2024-03-06 06:00] VITALS: BMI 28.7
[2024-03-06 06:47] LABS: Bedside Glucose 83 mg/dL (74-106)
[2024-03-06 06:59] VITALS: O2SAT 92
[2024-03-06] MEDS: oxyCODONE 5 MG Tablet 10 MG GT ×2 (08:05→18:06)
[2024-03-06] MEDS: Amiodarone 200 MG Tablet GT (08:05)
[2024-03-06] MEDS: Ferrous Sulfate 325 MG Tablet GT ×2 (08:05→18:07)
[2024-03-06] MEDS: Polyethylene Glycol 3350 17 GM PACKET GT ×2 (08:07→20:54)
[2024-03-06] MEDS: Lansoprazole 15 MG Capsule.DR 30 MG GT (08:07)
[2024-03-06] MEDS: Senna/Docusate Sodium 1 Tablet 2 TABLET GT ×2 (08:07→21:02)
[2024-03-06] MEDS: Doxycycline 100 MG CAPSULE GT ×2 (08:07→21:01)
[2024-03-06] MEDS: Carvedilol 12.5 MG Tablet GT ×2 (08:08→21:02)
[2024-03-06] MEDS: Cephalexin Suspension 250 MG/5 ML PO.SYRINGE 500 MG GT ×2 (08:14→20:58)
[2024-03-06] MEDS: Ammonium Lactate 225 gm Bottle 1 APPLIC TOPICAL ×2 (08:17→21:01)
[2024-03-06] MEDS: Arthritis Pain Compound 60 CLICK TUBE TOPICAL (08:17)
[2024-03-06] MEDS: Menthol/Lanolin/Calamine/Znox 113 GM Tube 1 APPLIC TOPICAL ×2 (08:18→21:02)
--- NOTE | 2024-03-06 12:51 | NURSING ---
Offered covid vaccine, resident refuses at this time. VIS provided.
[2024-03-06 13:26] VITALS: BP 112/58; PULSE 62; RESP 16; TEMP 36.1; O2SAT 98
--- NOTE | 2024-03-06 15:12 | CASEMGMT ---
Social Work per son request, SW phoned son to notify of insurance approval with NRD 03/12. Son appreciative. Betty Burrell, GLOBAL PROJECT MANAGER UPHOLSTERY CUTTER
[2024-03-06] MEDS: Warfarin (BKC) 3 MG Tablet GT (18:07)
[2024-03-06] MEDS: COVID VAC 24-25 (12UP)(MODERNA)/PF 50 MCG/0.5 ML SYRINGE IM (18:10)
[2024-03-06] MEDS: traMADol 50 MG Tablet GT (21:00)
[2024-03-06] MEDS: traZODone 100 MG Tablet GT (21:02)
[2024-03-06] MEDS: Simvastatin 20 MG Tablet GT (21:02)
[2024-03-06 21:05] VITALS: PULSE 61; RESP 16; O2SAT 95
[2024-03-06 21:17] VITALS: BP 142/70; PULSE 61
[2024-03-07 05:32] VITALS: BMI 28.7
[2024-03-07 05:35] VITALS: RESP 15
[2024-03-07 06:39] LABS: Bedside Glucose 88 mg/dL (74-106)
[2024-03-07 07:38] VITALS: O2SAT 96
[2024-03-07 08:14] VITALS: BP 114/50; PULSE 65; RESP 18; TEMP 36.8; O2SAT 93
[2024-03-07] MEDS: Ferrous Sulfate 325 MG Tablet GT ×2 (08:16→16:24)
[2024-03-07] MEDS: Senna/Docusate Sodium 1 Tablet 2 TABLET GT ×2 (08:17→20:29)
[2024-03-07] MEDS: Lansoprazole 15 MG Capsule.DR 30 MG GT (08:17)
[2024-03-07] MEDS: Polyethylene Glycol 3350 17 GM PACKET GT ×2 (08:21→20:27)
[2024-03-07] MEDS: oxyCODONE 5 MG Tablet 10 MG GT ×2 (08:28→20:44)
[2024-03-07] MEDS: Amiodarone 200 MG Tablet GT (08:29)
[2024-03-07] MEDS: Carvedilol 12.5 MG Tablet GT ×2 (08:29→20:28)
[2024-03-07] MEDS: Doxycycline 100 MG CAPSULE GT ×2 (08:32→20:29)
[2024-03-07] MEDS: Cephalexin Suspension 250 MG/5 ML PO.SYRINGE 500 MG GT ×2 (08:32→20:38)
[2024-03-07] MEDS: Ammonium Lactate 225 gm Bottle 1 APPLIC TOPICAL ×2 (08:42→20:40)
[2024-03-07] MEDS: Menthol/Lanolin/Calamine/Znox 113 GM Tube 1 APPLIC TOPICAL ×2 (08:42→20:27)
[2024-03-07] MEDS: Warfarin (BKC) 3 MG Tablet GT (16:24)
[2024-03-07] MEDS: traZODone 100 MG Tablet GT (20:28)
[2024-03-07] MEDS: Simvastatin 20 MG Tablet GT (20:40)
[2024-03-08 05:19] VITALS: BMI 28.8
[2024-03-08 06:24] LABS: Bedside Glucose 92 mg/dL (74-106)
[2024-03-08 06:34] LABS: International Normalized Ratio 2.9; Prothrombin Time (Protime)PT. 30.4 SECONDS (11.7-14.9)
[2024-03-08 08:43] VITALS: O2SAT 95
[2024-03-08] MEDS: Menthol/Lanolin/Calamine/Znox 113 GM Tube 1 APPLIC TOPICAL ×2 (09:08→22:05)
[2024-03-08] MEDS: Doxycycline 100 MG CAPSULE GT (09:10)
[2024-03-08] MEDS: Ferrous Sulfate 325 MG Tablet GT (09:10)
[2024-03-08] MEDS: Lansoprazole 15 MG Capsule.DR 30 MG GT (09:11)
[2024-03-08] MEDS: Senna/Docusate Sodium 1 Tablet 2 TABLET GT (09:11)
[2024-03-08] MEDS: Polyethylene Glycol 3350 17 GM PACKET GT ×2 (09:11→22:06)
[2024-03-08] MEDS: Ammonium Lactate 225 gm Bottle 1 APPLIC TOPICAL ×2 (09:11→22:05)
[2024-03-08] MEDS: Amiodarone 200 MG Tablet GT (09:12)
[2024-03-08] MEDS: Carvedilol 12.5 MG Tablet GT (09:12)
[2024-03-08] MEDS: oxyCODONE 5 MG Tablet 10 MG GT (09:20)
[2024-03-08] MEDS: Cephalexin Suspension 250 MG/5 ML PO.SYRINGE 500 MG GT ×2 (09:35→21:59)
[2024-03-08 09:42] VITALS: BP 113/56; PULSE 60; O2SAT 96
[2024-03-08 11:10] VITALS: O2SAT 94
[2024-03-08 11:40] VITALS: PULSE 60; RESP 18; O2SAT 93
--- NOTE | 2024-03-08 13:10 | NURSING ---
THIS NURSE IN ROOM BEDSIDE THIS PT AND HEARD PT COUGHING A LOT. SON IN ROOM, FOUND PT THROWING UP SOME OF HIS LUNCH THAT THE SON BROUGHT IN. ASKED BOTH WHAT HAPPENED ? PT AND SON BOTH STATED THAT PT WAS EATING AND DID NOT HAVE THE HEAD OF BED HIGH ENOUGH LIKE THEY SHOULD AND WAS GOING TO PUT THE HEAD UP HIGHER AND SEEN PT WAS DOING FINE AT THAT TIME AND DIDN'T DO IT. THIS NURSE EDUCATED SON AND PT AGAIN ON THE REASONS ETC OF THE PT NEEDING TO BE SITTING UP STRAIGHT WHEN EATING AND DRINKING AND WHAT CAN HAPPEN YOU SEE IF NOT. SON AND PT STATED THEY LEARNED THERE LESSON. STATED TO BOTH THAT IT ALSO NEEDS TO BE FOLLOWED WHEN AT HOME WHAT STAFF AND SPEECH THERAPY HAS RECOMMENDED. PT AND SON BOTH STATED THEY UNDER STOOD. STATED TO PT AND SON THAT PT NEEDS TO BE UP IN CHAIR FOR MEALS. RN AND SPEECH THERAPY AWARE. WILL CONTINUE TO MONITOR PT.
[2024-03-08 15:46] VITALS: BP 109/54; PULSE 60; RESP 18; TEMP 36.2; O2SAT 94
[2024-03-08] MEDS: Ferrous Sulfate 325 MG Tablet PO (17:20)
[2024-03-08] MEDS: Warfarin (BKC) 3 MG Tablet PO (17:20)
--- NOTE | 2024-03-08 18:00 | NURSING ---
NO BM IN 3 DAYS. PRUNE JUICE AND BUTTER GIVEN.
--- NOTE | 2024-03-08 19:30 | NURSING ---
PT HAS ATE 50% OR BETTER ON ALL MEALS TODAY. PEG PLACEMENT VERIFIED,0 RESIDUAL,PEG FLUSHED.
[2024-03-08] MEDS: oxyCODONE 5 MG Tablet 10 MG PO (22:03)
[2024-03-08] MEDS: Carvedilol 12.5 MG Tablet PO (22:05)
[2024-03-08] MEDS: traZODone 100 MG Tablet PO (22:05)
[2024-03-08] MEDS: Senna/Docusate Sodium 1 Tablet 2 TABLET PO (22:06)
[2024-03-08] MEDS: Simvastatin 20 MG Tablet PO (22:06)
[2024-03-08] MEDS: Doxycycline 100 MG CAPSULE PO (22:06)
[2024-03-08 22:16] VITALS: BP 123/65; PULSE 60; RESP 18
--- NOTE | 2024-03-09 00:59 | NURSING ---
Patient refusing arthritis cream as ordered x several doses, states doesn't work. Written communication left for Dr. Richardson regarding refusal
[2024-03-09 06:37] LABS: Bedside Glucose 92 mg/dL (74-106)
[2024-03-09 08:23] LABS: Absolute Lymphocyte Count 1.57 X10^3/uL (0.83-4.51); Absolute Neutrophil Count 2.3 X10^3/uL (2.0-7.7); Basophil# 0.04 X10^3/uL; Basophil% 0.9 % (0-1); Eosinophil# 0.15 X10^3/uL; Eosinophils% 3.2 % (0-5); Hemoglobin 9.4 g/dL (13.0-16.5); Lymphocyte # 1.57 X10^3/ul (0.83-4.51); Lymphocyte % 33.7 % (19-41); Mean Corp Hgb Conc 30.3 g/dL (32-36); Mean Corpuscular Hgb 29.7 pg (27.0-32.0); Mean Corpuscular Volume 98.1 fL (80-94); Mean Platelet Vol. 9.9 fl (6.2-12.0); Monocyte# 0.52 X10^3/uL; Monocyte% 11.2 % (0-10); NRBC Flagged by Analyzer 0 % (0-5); Neutrophil # 2.32 X10^3/uL (2.7-7.7); Neutrophil % 49.7 % (47-70); Platelet Count 252 K/mm3 (150-450); RBC Distribution Width CV 13.5 % (11.6-14.6); RBC Distribution Width SD 47.8 fl (35.1-43.9); Red Blood Count 3.16 M/mm3 (4.6-6.2); White Blood Count 4.7 K/mm3 (4.4-11.0)
[2024-03-09 08:38] VITALS: O2SAT 95
[2024-03-09 08:50] LABS: Anion Gap 8 (5-15); BUN 20 mg/dL (7-18); BUN/Creat Ratio 9.5 RATIO (10-20); Calcium,Total 8.7 mg/dL (8.5-10.1); Chloride 109 mmol/L (98-107); EST Glomerular Filtration Rate 32 mL/min (>60); Est Glom Filt Rate - Afr Amer 38 mL/min (>60); Estimated Creatinine Clearance 30.38 ml/min; Glucose 94 mg/dL (74-106); Potassium 4.1 mmol/L (3.5-5.1); Sodium Level 140 mmol/L (136-145)
--- NOTE | 2024-03-09 10:03 | NURSING ---
Addendum entered by Stephanie Short 03/09/24 10:08: Spoke with vascular office staff, notified them of consult. Original Note: Per photonics technician, RLE DVT is completely unchanged. Updated Dr. Richardson, order to consult Nitza Tenorio with vascular for their recommendations.
[2024-03-09] MEDS: Ferrous Sulfate 325 MG Tablet PO ×2 (10:10→17:27)
[2024-03-09] MEDS: Menthol/Lanolin/Calamine/Znox 113 GM Tube 1 APPLIC TOPICAL ×2 (10:10→20:35)
[2024-03-09] MEDS: Amiodarone 200 MG Tablet PO (10:11)
[2024-03-09] MEDS: Doxycycline 100 MG CAPSULE PO (10:11)
[2024-03-09] MEDS: Ammonium Lactate 225 gm Bottle 1 APPLIC TOPICAL ×2 (10:11→20:35)
[2024-03-09] MEDS: Carvedilol 12.5 MG Tablet PO ×2 (10:11→20:34)
[2024-03-09] MEDS: Polyethylene Glycol 3350 17 GM PACKET GT ×2 (10:12→20:34)
[2024-03-09] MEDS: Senna/Docusate Sodium 1 Tablet 2 TABLET PO ×2 (10:12→20:35)
[2024-03-09] MEDS: Lansoprazole 15 MG Capsule.DR 30 MG PO (10:12)
[2024-03-09] MEDS: oxyCODONE 5 MG Tablet 10 MG PO ×2 (10:17→20:34)
[2024-03-09] MEDS: Cephalexin Suspension 250 MG/5 ML PO.SYRINGE 500 MG GT (10:22)
[2024-03-09 10:34] VITALS: BP 131/71; PULSE 61; O2SAT 96
[2024-03-09 14:55] VITALS: PULSE 61; RESP 18; O2SAT 98
--- NOTE | 2024-03-09 15:54 | NURSING ---
SOAP SUDS ENEMA COMPLEAT PER ORDER WITH POSITIVE RESULTS OF X-LG SOFT. PT TOLERATED WELL.
[2024-03-09 16:00] VITALS: BP 108/53; PULSE 61; RESP 14; TEMP 36.1; O2SAT 90
--- NOTE | 2024-03-09 16:25 | NURSING ---
GORDON SY FROM VASCULAR IN TO SEE PT AND STATED TO HAVE A REPEAT ULTRASOUND IN 1 WEEK.
[2024-03-09] MEDS: Warfarin (BKC) 3 MG Tablet PO (17:25)
--- NOTE | 2024-03-09 18:01 | CON.PCM.SX_ITS ---
Assessment & Plan Assessment/Plan (1) DVT (deep venous thrombosis): PLAN: He has a right soleus vein DVT identified on duplex 03/02/2024 and stable on duplex 03/09/2024. He remains on Coumadin, INR is therapeutic, and he is tolerating without adverse bleeding to this point. I recommend continued anticoagulation with Coumadin and a repeat right lower extremity venous duplex in 1 week to monitor for stability. The pulsatile venous flow noted on duplex is typically cardiogenic, this would be consistent with his history of heart failure. HPI Consult Data Date of Consult: 03/09/24 HPI Narrative HPI Narrative: PEG BAEZ, is a 88 M with an acute right lower extremity DVT. Mr. Baez is presently in TCU recovering from recent hospitalizations. In January 2024 patient had a fall at home and unfortunately was down for a few days prior to discovery. He was brought to the [facility] ER found to be in rhabdo and have some broken ribs and he was transferred to [facility] for further evaluation and management. Following his discharge from [facility] he was sent to the TCU on 01/31/2024. On 02/10/2024 he had to be transferred back to the [facility] ER for esophageal obstruction and then following surgical management of that by GI was readmitted to TCU on 02/16/2024. He is chronically anticoagulated with Coumadin for his history of A-fib. Based on chart review, it appears that he was on prophylactic Lovenox until his readmission on 02/15 at which point that was discontinued and his Coumadin was restarted. However it appears he was subtherapeutic until 03/05/2024. R Soleus DVT was identified on venous duplex on 03/02/2024. He had a repeat venous duplex today 03/09/2024 which showed stable Soleus DVT no evidence of propagation. On ultrasound, he was also noted to have pulsatile venous flow. At present, he denies any pain in the right calf. He has bilateral lower extremity edema, fairly equal bilaterally now but he reports at baseline his left leg is usually more swollen than the right due to a remote injury. He does have some mild erythema still present on the right calf. He also has significant erythema on the left calf, but is being treated for cellulitis here. Denies any prior history of VTE. His medical history is otherwise significant for CHF, CAD, tachybradycardia syndrome status post pacemaker placement. [facility]LY [facility] Medical History Esophageal stenosis Esophageal achalasia Pleural effusion Hiatal hernia Nausea and vomiting Dysphagia GERD (gastroesophageal reflux disease) Ventricular tachycardia (paroxysmal) (03/2021) Non-ischemic cardiomyopathy History of non-ST elevation myocardial infarction (NSTEMI) (01/26/17) Arthritis Type 2 diabetes mellitus Old myocardial infarction Chronic systolic (congestive) heart failure Essential (primary) hypertension Paroxysmal atrial fibrillation Aortic valve calcification Atrioventricular block, Mobitz type 2 Atrioventricular block, complete Hyperlipidemia Chronic renal disease, stage 3, moderately decreased glomerular filtration rate between 30-59 mL/min/1.73 square meter Tachy-mary syndrome Home Medications ?Medication ?Instructions ?Recorded ?Last Taken ?Type simvastatin 20 mg tablet 20 mg feeding tube QHS cholesterol 01/24/17 02/09/24 History lowering carvedilol 25 mg tablet 25 mg feeding tube BID Heart 06/14/19 02/11/24 History warfarin 5 mg tablet (Coumadin) 2.5 mg feeding tube TUWEFR 04/21/20 02/15/24 17:47 History Anticoagulant acetaminophen 500 mg tablet 500 mg feeding tube Q8H PRN pain 03/02/21 02/09/24 History (Tylenol Extra Strength) (scale score 1-3) polyethylene glycol 3350 17 17 g feeding tube DAILY PRN 03/02/21 02/06/24 History gram/dose oral powder (Miralax) constipation trazodone 50 mg tablet 50 mg feeding tube QHS sleep 01/23/24 02/12/24 History amiodarone 200 mg tablet 200 mg feeding tube DAILY Blood 01/31/24 02/12/24 History pressure melatonin 3 mg tablet 3 mg feeding tube QHS PRN Sleep 01/31/24 Unknown History methocarbamol 500 mg tablet 500 mg feeding tube Q8H PRN Muscle 01/31/24 02/08/24 History spasms ondansetron 4 mg disintegrating 4 mg feeding tube Q8H PRN nausea 01/31/24 02/09/24 History tablet warfarin 1 mg tablet 1 mg feeding tube SUMOTHSA 01/31/24 02/09/24 History Anticoagulant sennosides 8.6 mg tablet (Senokot) 17.2 mg feeding tube DAILY PRN 02/09/24 Unknown History constipation enoxaparin 30 mg/0.3 mL 30 mg (0.3 mL) subcut DAILY blood 02/15/24 02/15/24 10:25 Rx subcutaneous syringe thinner #0 mL ferrous sulfate 325 mg (65 mg 325 mg feeding tube BID supplement 02/15/24 Unknown History iron) tablet furosemide 40 mg tablet (Lasix) 60 mg feeding tube DAILY fluid 02/15/24 Unknown History losartan 50 mg tablet 25 mg feeding tube DAILY BP 02/15/24 02/09/24 History menthol 0.44 %-zinc oxide 20.6 % 1 applic topical BID skin #0 grams 02/15/24 02/15/24 10:25 Rx topical ointment (Calmoseptine) omeprazole 20 mg capsule,delayed 40 mg feeding tube DAILY GERD 02/15/24 02/09/24 History release Allergy/AdvReac Type Severity Reaction Status Date / Time lisinopril Allergy Severe rash Verified 02/09/24 20:00 amlodipine Allergy Intermediate Rash Verified 02/09/24 20:00 atorvastatin (From Lipitor) Allergy Unknown Verified 02/09/24 20:00 doxazosin Allergy Unknown Verified 02/09/24 20:00 hydrochlorothiazide Allergy Unknown Verified 02/09/24 20:00 niacin (From Niaspan Allergy Unknown Verified 02/09/24 20:00 Extended-Release) propranolol (From Inderal LA) Allergy Unknown Verified 02/09/24 20:00 quinine Allergy Unknown Verified 02/09/24 20:00 tamsulosin (From Flomax) Allergy Unknown Verified 02/09/24 20:00 verapamil (From Calan) Allergy Unknown Verified 02/09/24 20:00 Family History Father CAD (coronary artery disease) Brother CAD (coronary artery disease) Surgical History Hx of colonoscopy History of esophagogastroduodenoscopy (EGD) History of open reduction and internal fixation (ORIF) procedure History of loop recorder Cardiac pacemaker in situ (01/26/17) Social History household members: none housing: [facility] Smoking Status: Former smoker how long ago did patient quit smokin alcohol intake: current alcohol intake frequency: a few times a week Alcohol type: hard liquor substance use type: does not use caffeine: Yes Type: coffee Number of servings: 3 what type of physical activity do you participate in: none seatbelt use: always do you feel safe at home: Yes Physical Exam Const alert, oriented x3 and no apparent distress General Appearance: cooperative and comfortable HEENT normocephalic, head/scalp atraumatic, hearing grossly normal bilaterally and external ears normal Eyes EOMs intact bilaterally General Eye: normal appearance of both eyes Neck General: normal visual inspection and trachea midline Resp normal respiratory effort, no retractions and no use of accessory muscles Effort and Inspection: able to speak in complete sentences Extremity Extremity Narrative: BLE edema 3+ R calf/arias with mild erythema, did not appreciate any excessive warmth, no significant tenderness to palpation L calf with moderate erythema, slightly more warm to palpation, no significant tenderness to palpation Neuro oriented x3, CN's II-XII intact bilaterally, moves all extremities and no focal motor deficits Psych mental status grossly normal, cooperative, affect normal, speech normal and activity/motor behavior normal Lab / Micro Data 03/09/24 07:55 03/09/24 07:55 Labs: Laboratory Results - last 24 hr 03/09/24 06:19: POC Glucose 92 03/09/24 07:55: WBC 4.7, RBC 3.16 L, Hgb 9.4 L, Hct 31.0 L, MCV 98.1 H, MCH 29.7, MCHC 30.3 L, RDW Std Deviation 47.8 H, RDW Coeff of Noa 13.5, Plt Count 252, MPV 9.9, Immature Gran % (Auto) 1.300 H, Neut % (Auto) 49.7, Lymph % (Auto) 33.7, Gosper % (Auto) 11.2 H, Eos % (Auto) 3.2, Baso % (Auto) 0.9, Absolute Neuts (auto) 2.3, Absolute Lymphs (auto) 1.57, Nucleated RBC % 0, Sodium 140, Potassium 4.1, Chloride 109 H, Carbon Dioxide 23.0, Anion Gap 8, BUN 20 H, C reatinine 2.10 H, Estim Creat Clear Calc 30.38, Est GFR (MDRD) Af Amer 38 L, Est GFR (MDRD) Non-Af 32 L, BUN/Creatinine Ratio 9.5 L, Glucose 94, Calcium 8.7 Charges/Coding Visit Charges Inpatient E&M: 56139 SNF Init L1
--- NOTE | 2024-03-09 18:28 | NURSING ---
PEG PLACEMENT VERIFIED,O RESIDUAL, PEG FLUSHED. PT ATE WELL FOR BREAKFAST AND DINNER. ONLY 25% FOR LUNCH. PT ON ROOM AIR ALL DAY AND RANGING 94-98%. WILL CONTINUE TO MONITOR.
[2024-03-09 20:00] VITALS: BP 129/66; PULSE 60; RESP 16; O2SAT 93
[2024-03-09] MEDS: traZODone 100 MG Tablet PO (20:34)
[2024-03-09] MEDS: Simvastatin 20 MG Tablet PO (20:35)
[2024-03-10 04:00] VITALS: O2SAT 95
[2024-03-10 06:00] VITALS: BMI 28.4
[2024-03-10 06:41] LABS: Bedside Glucose 84 mg/dL (74-106)
[2024-03-10 07:14] VITALS: O2SAT 92
[2024-03-10] MEDS: Carvedilol 12.5 MG Tablet PO ×2 (10:11→22:05)
[2024-03-10] MEDS: Ferrous Sulfate 325 MG Tablet PO ×2 (10:11→17:40)
[2024-03-10] MEDS: Amiodarone 200 MG Tablet PO (10:12)
[2024-03-10] MEDS: Polyethylene Glycol 3350 17 GM PACKET GT ×2 (10:12→22:02)
[2024-03-10] MEDS: Lansoprazole 15 MG Capsule.DR 30 MG PO (10:12)
[2024-03-10] MEDS: Senna/Docusate Sodium 1 Tablet 2 TABLET PO ×2 (10:12→22:02)
[2024-03-10] MEDS: Menthol/Lanolin/Calamine/Znox 113 GM Tube 1 APPLIC TOPICAL ×2 (10:13→22:01)
[2024-03-10] MEDS: Ammonium Lactate 225 gm Bottle 1 APPLIC TOPICAL ×2 (10:13→22:02)
[2024-03-10 12:12] VITALS: BP 111/50; PULSE 60; RESP 16; TEMP 36.3; O2SAT 92
[2024-03-10 12:37] VITALS: O2SAT 92
[2024-03-10] MEDS: Warfarin (BKC) 3 MG Tablet PO (17:39)
[2024-03-10] MEDS: traZODone 100 MG Tablet PO (22:01)
[2024-03-10] MEDS: Simvastatin 20 MG Tablet PO (22:02)
[2024-03-10 22:05] VITALS: BP 127/59; PULSE 61; RESP 18
[2024-03-11 06:00] VITALS: BMI 28.4
[2024-03-11 07:06] VITALS: O2SAT 94
[2024-03-11 07:10] LABS: Bedside Glucose 87 mg/dL (74-106)
[2024-03-11] MEDS: Senna/Docusate Sodium 1 Tablet 2 TABLET PO ×2 (12:11→22:10)
[2024-03-11] MEDS: Ferrous Sulfate 325 MG Tablet PO ×2 (12:11→17:37)
[2024-03-11] MEDS: Lansoprazole 15 MG Capsule.DR 30 MG PO (12:12)
[2024-03-11] MEDS: Amiodarone 200 MG Tablet PO (12:12)
[2024-03-11] MEDS: Carvedilol 12.5 MG Tablet PO ×2 (12:12→22:09)
[2024-03-11] MEDS: Polyethylene Glycol 3350 17 GM PACKET GT ×2 (12:15→22:10)
[2024-03-11] MEDS: Menthol/Lanolin/Calamine/Znox 113 GM Tube 1 APPLIC TOPICAL ×2 (12:21→22:07)
[2024-03-11] MEDS: Ammonium Lactate 225 gm Bottle 1 APPLIC TOPICAL ×2 (12:22→22:08)
[2024-03-11 16:00] VITALS: BP 125/62; PULSE 66; RESP 16; TEMP 36.4; O2SAT 94
[2024-03-11] MEDS: Warfarin (BKC) 3 MG Tablet PO (17:34)
[2024-03-11] MEDS: Simvastatin 20 MG Tablet PO (22:10)
[2024-03-11] MEDS: oxyCODONE 5 MG Tablet 10 MG PO (22:16)
[2024-03-11] MEDS: traZODone 100 MG Tablet PO (22:17)
[2024-03-12 06:00] VITALS: BMI 28.5
[2024-03-12 06:14] LABS: International Normalized Ratio 3.5; Prothrombin Time (Protime)PT. 34.7 SECONDS (11.7-14.9)
[2024-03-12 06:48] LABS: Bedside Glucose 89 mg/dL (74-106)
[2024-03-12 09:16] VITALS: O2SAT 93
[2024-03-12] MEDS: Polyethylene Glycol 3350 17 GM PACKET GT ×2 (09:59→21:56)
[2024-03-12] MEDS: Carvedilol 12.5 MG Tablet PO ×2 (09:59→21:57)
[2024-03-12] MEDS: Amiodarone 200 MG Tablet PO (09:59)
[2024-03-12] MEDS: Ferrous Sulfate 325 MG Tablet PO ×2 (09:59→17:18)
[2024-03-12] MEDS: Senna/Docusate Sodium 1 Tablet 2 TABLET PO ×2 (10:00→21:56)
[2024-03-12] MEDS: Lansoprazole 15 MG Capsule.DR 30 MG PO (10:00)
[2024-03-12] MEDS: Ammonium Lactate 225 gm Bottle 1 APPLIC TOPICAL ×2 (10:07→21:56)
[2024-03-12] MEDS: Menthol/Lanolin/Calamine/Znox 113 GM Tube 1 APPLIC TOPICAL ×2 (10:07→21:57)
[2024-03-12 10:13] VITALS: BP 132/67; PULSE 60
[2024-03-12 14:05] VITALS: PULSE 63; RESP 18; O2SAT 92
[2024-03-12 15:16] VITALS: BP 124/62; PULSE 60; RESP 16; TEMP 36.2; O2SAT 93
--- NOTE | 2024-03-12 15:19 | WOUNDNOTE ---
wound photo: left heel
--- NOTE | 2024-03-12 15:19 | WOUNDNOTE ---
wound photo: right heel
--- NOTE | 2024-03-12 15:21 | NURSING ---
ESSIERN/WOUND NURSE IN TO CHANGE PT HEEL DRESSINGS.
--- NOTE | 2024-03-12 20:03 | PN.TCU_ITS ---
Subjective Subjective Resident seen, examined for regulatory visit. He appears well, he is drinking, eating, swallowing much better, on regular diet. He has no new problems, concerns, issues, complaints. He has made considerable progress in therapy. Objective Data Objective Data Vital Signs: Vital Signs Temp Pulse Resp BP Pulse Ox O2 Del Method O2 Flow Rate 97.2 F L 60 16 124/62 H 93 Room Air 1 03/12/24 15:16 03/12/24 15:16 03/12/24 15:16 03/12/24 15:16 03/12/24 15:16 03/12/24 15:16 03/09/24 10:34 FiO2 94 03/05/24 22:33 Oxygen Flow Rate (L/min) 1 Oxygen Delivery Method Room Air Weight: 100.698 kg Body Mass Index (BMI) 28.5 Intake & Output: Intake and Output for Last 24 Hours 03/10/24 03/11/24 03/12/24 23:59 23:59 23:59 Intake Total 240 / 240 380 / 380 240 / 240 Output Total 550 / 550 Balance 240 / 240 380 / 380 -310 / -310 Lab / Micro Data 03/09/24 07:55 03/09/24 07:55 Labs: Laboratory Results - last 24 hr 03/12/24 05:06: PT 34.7 H, INR 3.5 03/12/24 06:29: POC Glucose 89 Micro: Microbiology 02/16/24 05:38 Nasal Secretion SARS-CoV-2 Antigen (Rapid) - Final Physical Exam Const alert General Appearance: cooperative HEENT normocephalic Eyes PERRL and EOMs intact bilaterally Neck supple, no JVD and no carotid bruits Resp normal respiratory effort, normal air movement and clear to auscultation bilaterally Cardio regular rate and regular rhythm GI normal to inspection, nondistended, normoactive bowel sounds, non-tender and non-distended GI Narrative: PEG present. Extremity normal capillary refill General Extremity: Negative for edema Skin no rashes or lesions noted General Skin Exam: no breakdown Psych affect normal Appearance: appropriate Assessment & Plan Assessment/Plan (1) Debility: (2) Dysphagia: (3) Esophageal obstruction: (4) Large hiatal hernia: (5) Esophageal achalasia: (6) Status post insertion of percutaneous endoscopic gastrostomy (PEG) tube: (7) Bilateral pleural effusion: (8) Acute on chronic heart failure with preserved ejection fraction (HFpEF): (9) Atrial fibrillation: (10) Coronary artery disease: (11) Allergic rhinitis: (12) Insomnia: (13) Muscle spasm: (14) GERD (gastroesophageal reflux disease): (15) Hyperlipidemia: QUALIFIERS: Hyperlipidemia type: pure hypercholesterolemia Q ualified Code(s): E78.00 - Pure hypercholesterolemia, unspecified; E78.0 - Pure hypercholesterolemia PLAN: Plan 88 year old male with below past medical history hospitalized for nausea, vomiting 2/2 esophageal obstruction, hiatal hernia, achalasia, underwent PEG placement 02/14/[address] Zhang, complicated by acute on chronic HFpEF, bilateral pleural effusion, admitted to TCU with debility, here for rehabilitation, strengthening, prior to discharge home alone. * Debility - PT/OT. * Dysphagia - ST. * Pain - Tylenol 1000mg q6 prn, Tramadol 50mg q6 prn. * Bowel - Miralax 17gm twice daily, and daily prn, Senna/colace 2 tablets bid, Dulcolax 10mg pr daily prn, Magnesium citrate 300ml daily prn. * Adult immunization - Administer pneumonia vaccine, covid vaccine, flu vaccine as appropriate * DVT prophylaxis - on warfarin. * Atrial fibrillation - Coreg 12.5mg bid, Amiodarone 200mg daily, Warfarin 2.5mg daily, follow INR. * Iron deficiency anemia - Ferrous sulfate 325mg bidcm. * Chronic HFpEF - Coreg 12.5mg bid. * GERD - Lansoprazole 30mg daily. * Insomnia - Melatonin 3mg qhs prn. * Skin irritation - Calmoseptine topical bid. * Muscle spasm - Robaxin 500mg q8 prn. * Hyperlipidemia - Simvastatin 20mg qhs. * Insomnia - Trazodone 100mg qhs. * Right soleus vein dvt - appreciate Nitza Tenorio consultation, stable on doppler over 1 week, repeat doppler in another week to document stability. * Dry skin - Ammonium lactate topical bid.
[2024-03-12] MEDS: oxyCODONE 5 MG Tablet 10 MG PO (21:56)
[2024-03-12] MEDS: traZODone 100 MG Tablet PO (21:57)
[2024-03-12] MEDS: Simvastatin 20 MG Tablet PO (21:57)
[2024-03-12 22:00] VITALS: BP 122/67; PULSE 60; RESP 16
[2024-03-13 06:00] VITALS: BMI 28.3
[2024-03-13 06:25] LABS: Bedside Glucose 80 mg/dL (74-106)
[2024-03-13] MEDS: Carvedilol 12.5 MG Tablet PO ×2 (08:14→20:45)
[2024-03-13] MEDS: Lansoprazole 15 MG Capsule.DR 30 MG PO (08:15)
[2024-03-13] MEDS: Amiodarone 200 MG Tablet PO (08:15)
[2024-03-13] MEDS: Ferrous Sulfate 325 MG Tablet PO ×2 (08:15→17:03)
[2024-03-13] MEDS: Polyethylene Glycol 3350 17 GM PACKET GT ×2 (08:15→20:44)
[2024-03-13] MEDS: Senna/Docusate Sodium 1 Tablet 2 TABLET PO ×2 (08:15→20:44)
[2024-03-13] MEDS: Menthol/Lanolin/Calamine/Znox 113 GM Tube 1 APPLIC TOPICAL ×2 (08:16→20:46)
[2024-03-13] MEDS: Ammonium Lactate 225 gm Bottle 1 APPLIC TOPICAL ×2 (08:16→20:43)
[2024-03-13] MEDS: oxyCODONE 5 MG Tablet 10 MG PO ×2 (08:21→17:03)
[2024-03-13 10:49] VITALS: BP 125/65; PULSE 62; RESP 16; TEMP 35.8; O2SAT 94
[2024-03-13] MEDS: traZODone 100 MG Tablet PO (20:44)
[2024-03-13] MEDS: Simvastatin 20 MG Tablet PO (20:45)
[2024-03-13 20:52] VITALS: BP 122/70; PULSE 60; RESP 16
[2024-03-14 06:00] VITALS: BMI 28.6
[2024-03-14 07:04] LABS: Bedside Glucose 82 mg/dL (74-106)
[2024-03-14 08:00] VITALS: BP 113/50; PULSE 62; O2SAT 97
[2024-03-14] MEDS: Ferrous Sulfate 325 MG Tablet PO ×2 (08:34→18:19)
[2024-03-14] MEDS: Polyethylene Glycol 3350 17 GM PACKET GT ×2 (08:34→20:21)
[2024-03-14] MEDS: Menthol/Lanolin/Calamine/Znox 113 GM Tube 1 APPLIC TOPICAL ×2 (08:35→20:22)
[2024-03-14] MEDS: Amiodarone 200 MG Tablet PO (08:36)
[2024-03-14] MEDS: Carvedilol 12.5 MG Tablet PO ×2 (08:36→20:21)
[2024-03-14] MEDS: Lansoprazole 15 MG Capsule.DR 30 MG PO (08:37)
[2024-03-14] MEDS: Ammonium Lactate 225 gm Bottle 1 APPLIC TOPICAL ×2 (08:37→20:22)
[2024-03-14] MEDS: Senna/Docusate Sodium 1 Tablet 2 TABLET PO ×2 (08:37→20:21)
[2024-03-14] MEDS: oxyCODONE 5 MG Tablet 10 MG PO ×2 (08:41→20:21)
[2024-03-14 15:00] VITALS: BP 116/68; PULSE 61; RESP 16; TEMP 36.1; O2SAT 98
[2024-03-14] MEDS: Juven (unflavored) Packet 1 PACKET PO (18:19)
[2024-03-14 20:15] VITALS: PULSE 61; RESP 16; O2SAT 97
[2024-03-14] MEDS: traZODone 100 MG Tablet PO (20:21)
[2024-03-14] MEDS: Simvastatin 20 MG Tablet PO (20:21)
[2024-03-14 20:28] VITALS: BP 103/50; PULSE 61
[2024-03-15 05:37] LABS: Basophil# 0.03 X10^3/uL; Basophil% 0.6 % (0-1); Eosinophils% 2.1 % (0-5); Hematocrit 28.6 % (40-54); Hemoglobin 8.8 g/dL (13.0-16.5); Mean Corp Hgb Conc 30.8 g/dL (32-36); Mean Corpuscular Hgb 30.2 pg (27.0-32.0); Mean Corpuscular Volume 98.3 fL (80-94); Mean Platelet Vol. 9.6 fl (6.2-12.0); Monocyte# 0.41 X10^3/uL; Monocyte% 8.6 % (0-10); NRBC Flagged by Analyzer 0 % (0-5); Neutrophil % 41.9 % (47-70); Platelet Count 179 K/mm3 (150-450); RBC Distribution Width CV 13.6 % (11.6-14.6); RBC Distribution Width SD 47.8 fl (35.1-43.9); Red Blood Count 2.91 M/mm3 (4.6-6.2); White Blood Count 4.8 K/mm3 (4.4-11.0)
[2024-03-15 05:56] LABS: Prothrombin Time (Protime)PT. 47.3 SECONDS (11.7-14.9)
[2024-03-15 06:00] VITALS: BMI 28.0
[2024-03-15 06:02] LABS: Anion Gap 2 (5-15); BUN 25 mg/dL (7-18); BUN/Creat Ratio 11.7 RATIO (10-20); Calcium,Total 8.4 mg/dL (8.5-10.1); Chloride 110 mmol/L (98-107); Creatinine, Serum 2.14 mg/dL (0.70-1.30); EST Glomerular Filtration Rate 31 mL/min (>60); Est Glom Filt Rate - Afr Amer 38 mL/min (>60); Estimated Creatinine Clearance 29.43 ml/min; Glucose 96 mg/dL (74-106); Potassium 4.5 mmol/L (3.5-5.1); Sodium Level 139 mmol/L (136-145)
[2024-03-15 06:30] LABS: International Normalized Ratio 5.2
[2024-03-15 06:40] LABS: Bedside Glucose 88 mg/dL (74-106)
[2024-03-15 06:52] VITALS: RESP 16
[2024-03-15] MEDS: Ferrous Sulfate 325 MG Tablet PO ×2 (08:45→17:57)
[2024-03-15] MEDS: Amiodarone 200 MG Tablet PO (08:46)
[2024-03-15] MEDS: Juven (unflavored) Packet 1 PACKET PO ×2 (08:46→17:57)
[2024-03-15] MEDS: Senna/Docusate Sodium 1 Tablet 2 TABLET PO ×2 (08:48→20:59)
[2024-03-15] MEDS: Lansoprazole 15 MG Capsule.DR 30 MG PO (08:48)
[2024-03-15] MEDS: Polyethylene Glycol 3350 17 GM PACKET GT ×2 (08:48→20:59)
[2024-03-15] MEDS: Carvedilol 12.5 MG Tablet PO ×2 (08:49→20:58)
--- NOTE | 2024-03-15 11:13 | SP.MBSS_ITS ---
Modified Barium Swallow Patient Information Study Date: 03/15/24 Study Time: 09:30 Direct Billable Minutes: 140 Total Minutes procedure & reportin Diagnosis: Oropharyngeal Dysphagia R13.12, Esophageal Dysphagia R13.14 Referring Physician: Wagner Richardson Chi Reason for Referral: Objectively assess swallow function, assess risk for aspiration, and determine recommendations for least restrictive diet textures and compensatory strategies to improve safety of swallow. Medical History: Patient is a 88 M w/ extensive oropharyngeal and esophageal dysphagia. Initially, pt. presented to [facility] ED on 01/23/24 with fall. He fell into tub and was found by grandson several days later. He was transferred to [facility] for trauma. Right 10th, right 11th rib fractures, CK 5,000. On 01/31/2024, pt. admitted to TCU with debility, here for rehabilitation, strengthening, prior to discharge home alone. Pt. was seen at [facility] on 01/25/24 d/t incident of choking while eating and laying in bed. ST was ordered for dysphagia however no skilled ST was indicated as pt. was tolerating diet w/o difficulty. It was recommended that if concerns for aspiration persist, recommend MBSS. ST consulted at this level of care d/t pt. throwing up significant amount of thick, clear phlegm after breakfast and lunch w/ small amount of food observed. Pt. participated in CBSE on 02/02/24 where he was showing s/sx of oropharyngeal and esophageal dysphagia, therefore MBSS was recommended. Participation in MBSS on 02/03/24 which showed mild oropharyngeal dysphagia and moderate-severe esophageal dysphagia. PRODUCTION BROACHING MACHINE OPERATOR recommended a full liquid diet until GI intervention. See report for full details. Pt. was seen by Dr. Zhang (GI) per PRODUCTION BROACHING MACHINE OPERATOR recommendations w/ dx of esophageal achalasia. Esophagus was dilated. Imaging revealed a distended esophagus and a large hiatal hernia, leading to a GI consultation for potential surgical options and stent placement. On 02/12/2024, an EGD confirmed benign esophageal stenosis and successful feeding tube placement. Since then, pt. has been transitioned to PO diet of mechanical soft and thin liquids w/ use of compensatory swallowing strategies. Pt. continues to show s/sx of aspiration w/ frequent throat clearing /coughing w/ PO intake and belching during and after meals. PRODUCTION BROACHING MACHINE OPERATOR recommended repeat MBSS to objectively assess swallow function prior to d/c home w/ son. Mental Status: WNL Respiratory Status: Oxygenating on Room Air Penetration-Aspiration Scale Penetration-Aspiration Scale: OBJECTIVE ASSESSMENT OF SWALLOW FUNCTION (QUANTITATIVE ? PER TRIAL): PENETRATION / ASPIRATION SCALE ([place]): 1 = does not enter airway 2 = enters airway/above vocal folds/ejected 3 = enters airway/above vocal folds/not ejected 4 = enters airway/contacts vocal folds/ejected 5 = enters airway/contacts vocal folds/not ejected 6 = enters airway/below vocal folds/ejected 7 = enters airway/below vocal folds/not ejected despite effort 8 = enters airway/below vocal folds/no effort VIDEOFLOROSCOPIC SCALE SCORE ([place]): Grade I = aspiration of material that has penetrated into the laryngeal vestibule, intact cough reflex Grade II = aspiration < 10 % of the bolus, intact cough reflex Grade III = aspiration of < 10 % of the bolus, reduced cough reflex or aspiration of > 10 % of the bolus, intact cough reflex Grade IV = aspiration of > 10 % of the bolus, reduced cough reflex Penetration-Aspiration Scale Score Thin Liquid via small single sip: cup: Result: 3= enters airways/above vocal folds/not ejected Thin Liquid via single sip: straw: Result: 5= enters airways/contacts vocal folds/not ejected Thin Liquid via single sip: straw Trial 2: Result: 5= enters airways/contacts vocal folds/not ejected [place] Thick Liquid via small single sip: cup: Result: 5= enters airways/contacts vocal folds/not ejected Honey Thick Liquid via small single sip: cup: Result: 2= enter airway/above vocal folds/ejected Pudding: Result: 1= does not enter airway Pears: Result: 1= does not enter airway Thin Liquid via small single sip: cup Trial 2: Result: 3= enters airways/above vocal folds/not ejected Thin Liquid via small single sip: cup Trial 3: Result: 3= enters airways/above vocal folds/not ejected Oral Phase Labial Seal: No Labial Escape Tongue Control During Bolus Hold: Posterior escape of greater than half of bolus Bolus Preparation/Mastication: Slow prolonged chewing/mashing with complete recollection Bolus Transport/Lingual Motion: Delayed initiation of tongue motion Oral Residue: Trace residue lining oral structures Pharyngeal Phase Initiation of Pharyngeal Swallow: Bolus head in pyriforms Soft Palate Elevation: No bolus between soft palate and pharyngeal wall Laryngeal Elevation: Partial superior movement thyroid cart/partial apprx aryt- epig petiole Anterior Hyoid Excursion: Partial anterior movement Epiglottic Movement: Complete inversion Laryngeal Vestibule Closure at Height of Swallow: Incomplete; narrow column of air/contrast in laryngeal vestibule Pharyngeal Stripping Wave: Present - diminished Pharyngoesophageal Segment Opening: Parital distension and partial duration; parital obstruction of flow Tongue Base Retraction: Narrow column of contrast between tongue base & post. pharyngeal wall Pharyngeal Residue: Collection of residue within or on pharyngeal structures Esophageal Phase Esophageal Clearance: Esophageal retention w/ retrograde flow below pharyngoesophageal seg. Diagnosis/Impression Diagnosis: mild/moderate oropharyngeal dysphagia, moderate esophageal dysphagia Impression: Patient presents with mild to moderate oropharyngeal dysphagia. Compared to the MBSS conducted on 02/03/2024, there is a deterioration in oropharyngeal function, likely attributed to disuse atrophy of the swallowing muscles resulting from prolonged NPO status. Pt. demonstrated mildly prolonged mastication, timely AP transit and minimal oral residue after the swallow. Pt. demonstrating poor bolus control observed with all consistencies (thin, NTL, HTL, pudding, pears) resulting in premature spillage to the vallecula and pyriforms prior to swallow onset. Additionally, pt.'s kyphotic posture is causing the bolus to enter the airway prior to swallow onset, nearly contacting the vocal cords. Pharyngeal onset delay, combined with poor bolus control results in laryngeal penetration that is NOT ejecting. Contrast residue remained above the vocal cords. Poor pharyngeal motility resulting in pharyngeal residue in the vallecula and pyriforms. Pharyngeal residues in the vallecula and pyriforms seen spilling into the airway during and after the swallow. Despite the noted decline in oropharyngeal function likely due to disuse atrophy and laryngeal penetration to the vocal cords observed during MBSS, the patient's respiratory status has significantly improved since initial admission. He is currently on room air, exhibiting clear lung sounds and no signs of pneumonia as confirmed by nursing staff. Therefore, I recommend continuing the thin liquid diet w/ use of compensatory swallowing strategies rather than transitioning to thickened liquids. If worsening respiratory status - consider diet downgrade and repeat MBSS. PRODUCTION BROACHING MACHINE OPERATOR is recommending PO diet of mechanical soft textures and thin liquids w/ use of compensatory swallowing strategies. Pt. would benefit from a slight recline backwards w/ PO intake as poor posture is resulting in pre-prandial penetration to the vocal cords. W/ thin liquids - no straws, small sips, cough and re- swallow after every sip w/ goal to eject laryngeal penetration. PRODUCTION BROACHING MACHINE OPERATOR is recommending pt. to avoid mixed consistences such as cereal, soup, etc. d/t poor bolus control and laryngeal penetration to the cords observed w/ thin liquids. Pt. would be an appropriate candidate for [place] Free Water Protocol. Recommendations Diet: Mechanical Soft Textures (No mixed consistenices) and Thin Liquids Compensatory Strategies: Small Bites, Small Sips (Cough and re-swallow), No Straws, Slow Rate (Consider smaller, more frequent meals), Multiple Swallows, Alternate bites/solids and sips/liquids, Sitting upright (or slightly reclined backwards if possible as kyphotic posture is resulting in bolus in airway prior to swallow onset), Remain sitting upright for 30 minutes after PO intake and Assist with verbal cues to use recommended strategies Recommend Repeat Modified Barium Swallow: Yes Need for Skilled Speech Therapy Services: Yes Comment: Pt. requires continued ST services to target diet texture management, training/implementation of compensatory strategies, and training/implementation of oropharyngeal exercise program. Education Completed: 1. Described result of evaluation., 2. Pt understands evaluation & agrees with goals and treatment plan. and 4. Family/caregivers understand evaluation & agree w/ goals & tx plan. Status Active ST Patient: Active Contact Information [facility] Speech Therapy:: Nancy Milner M.A. [facility]-PRODUCTION BROACHING MACHINE OPERATOR Speech-Language Pathologist [facility] [address] [place] [address] [email or web address] [phone]
[2024-03-15] MEDS: Menthol/Lanolin/Calamine/Znox 113 GM Tube 1 APPLIC TOPICAL ×2 (13:50→20:59)
[2024-03-15] MEDS: Ammonium Lactate 225 gm Bottle 1 APPLIC TOPICAL ×2 (13:50→20:59)
[2024-03-15] MEDS: oxyCODONE 5 MG Tablet 10 MG PO ×2 (14:19→20:57)
[2024-03-15 16:00] VITALS: BP 112/66; PULSE 60; RESP 18; TEMP 35.9; O2SAT 95
[2024-03-15] MEDS: Simvastatin 20 MG Tablet PO (20:58)
[2024-03-15] MEDS: traZODone 100 MG Tablet PO (20:59)
[2024-03-15 21:01] VITALS: BP 126/71; PULSE 60
[2024-03-16 05:42] VITALS: BMI 28.1
[2024-03-16 06:13] LABS: Prothrombin Time (Protime)PT. 49.7 SECONDS (11.7-14.9)
[2024-03-16 06:16] LABS: International Normalized Ratio 5.5
[2024-03-16 06:22] LABS: Bedside Glucose 85 mg/dL (74-106)
[2024-03-16] MEDS: Menthol/Lanolin/Calamine/Znox 113 GM Tube 1 APPLIC TOPICAL ×2 (08:50→22:05)
[2024-03-16] MEDS: Ferrous Sulfate 325 MG Tablet PO ×2 (08:51→16:43)
[2024-03-16] MEDS: Juven (unflavored) Packet 1 PACKET PO ×2 (08:51→16:42)
[2024-03-16] MEDS: Carvedilol 12.5 MG Tablet PO ×2 (08:51→22:07)
[2024-03-16] MEDS: Amiodarone 200 MG Tablet PO (08:51)
[2024-03-16] MEDS: Lansoprazole 15 MG Capsule.DR 30 MG PO (08:52)
[2024-03-16] MEDS: Senna/Docusate Sodium 1 Tablet 2 TABLET PO ×2 (08:53→22:07)
[2024-03-16] MEDS: Polyethylene Glycol 3350 17 GM PACKET GT ×2 (08:53→22:07)
[2024-03-16] MEDS: Ammonium Lactate 225 gm Bottle 1 APPLIC TOPICAL ×2 (08:55→21:57)
[2024-03-16] MEDS: Phytonadione (Vit K1) 5 MG TABLET PO (13:28)
[2024-03-16] MEDS: oxyCODONE 5 MG Tablet 10 MG PO ×2 (13:31→22:05)
[2024-03-16 16:00] VITALS: BP 100/52; PULSE 60; RESP 18; TEMP 35.9; O2SAT 93
[2024-03-16 22:00] VITALS: BP 113/55; PULSE 60; RESP 16; RESP 18; O2SAT 95
[2024-03-16] MEDS: Simvastatin 20 MG Tablet PO (22:07)
[2024-03-16] MEDS: traZODone 100 MG Tablet PO (22:07)
[2024-03-17 05:30] LABS: International Normalized Ratio 3.4; Prothrombin Time (Protime)PT. 33.9 SECONDS (11.7-14.9)
[2024-03-17 05:59] VITALS: BMI 28.3
[2024-03-17 06:43] LABS: Bedside Glucose 91 mg/dL (74-106)
[2024-03-17] MEDS: Juven (unflavored) Packet 1 PACKET PO ×2 (09:32→17:41)
[2024-03-17] MEDS: Menthol/Lanolin/Calamine/Znox 113 GM Tube 1 APPLIC TOPICAL ×2 (09:33→21:40)
[2024-03-17] MEDS: Ferrous Sulfate 325 MG Tablet PO ×2 (09:33→17:41)
[2024-03-17] MEDS: Ammonium Lactate 225 gm Bottle 1 APPLIC TOPICAL ×2 (09:35→21:40)
[2024-03-17] MEDS: Amiodarone 200 MG Tablet PO (09:35)
[2024-03-17] MEDS: Carvedilol 12.5 MG Tablet PO ×2 (09:35→21:39)
[2024-03-17] MEDS: Senna/Docusate Sodium 1 Tablet 2 TABLET PO ×2 (09:36→21:40)
[2024-03-17] MEDS: Polyethylene Glycol 3350 17 GM PACKET GT ×2 (09:36→21:41)
[2024-03-17] MEDS: Lansoprazole 15 MG Capsule.DR 30 MG PO (09:36)
[2024-03-17] MEDS: oxyCODONE 5 MG Tablet 10 MG PO ×2 (09:52→21:39)
[2024-03-17 09:56] VITALS: BP 114/58; PULSE 62; O2SAT 96
[2024-03-17 14:05] VITALS: PULSE 61; RESP 18; O2SAT 93
[2024-03-17 15:09] VITALS: BP 108/55; PULSE 61; RESP 16; TEMP 36.5; O2SAT 94
--- NOTE | 2024-03-17 16:29 | PCM.PN.DRR ---
Documented by User: Richie Garcia 03/17/24 16:47 TCU RX Drug Regimen Review Subjective/Objective Subjective/Objective: Subjective: TCU February note. 88 YOM admitted to TCU on 02/15/24 s/p hospitalization at [facility] secondary to abdominal pain/ n/v. During hospitalization, patient was found to have a large hiatal hernia, transfer to outside facility was declined, ultimately resulting in a GT placement. Admitted to TCU for rehabilitation and strengthening prior to discharge home where he currently resides alone. Objective: Allergies lisinopril Allergy (Severe, Verified 02/09/24 20:00) rash amlodipine Allergy (Intermediate, Verified 02/09/24 20:00) Rash atorvastatin (From Lipitor) Allergy (Verified 02/09/24 20:00) Unknown doxazosin Allergy (Verified 02/09/24 20:00) Unknown hydrochlorothiazide Allergy (Verified 02/09/24 20:00) Unknown niacin (From Niaspan Extended-Release) Allergy (Verified 02/09/24 20:00) Unknown propranolol (From Inderal LA) Allergy (Verified 02/09/24 20:00) Unknown quinine Allergy (Verified 02/09/24 20:00) Unknown tamsulosin (From Flomax) Allergy (Verified 02/09/24 20:00) Unknown verapamil (From Calan) Allergy (Verified 02/09/24 20:00) Unknown Current Medications Generic Name Dose Route Start Last Admin Trade Name Freq PRN Reason Stop Dose Admin Acetaminophen 1,000 mg 03/08/24 11:28 Acetaminophen 650 Mg/20 Ml Udc PO Q6H PRN PRN Pain Score 1-3 Amiodarone HCl 200 mg 03/09/24 10:00 03/17/24 09:35 Amiodarone 200 Mg Tablet PO 200 mg DAILY TRI Administration Bisacodyl 10 mg 03/09/24 15:48 Bisacodyl 10 Mg Suppository RC DAILY PRN Constipation Calamine/Phenol 1 applic 02/15/24 22:00 03/17/24 09:33 Menthol/Lanolin/Calamine/Znox 113 Gm Tube TOPICAL 1 applic BID TRI Administration Protocol Carvedilol 12.5 mg 03/08/24 22:00 03/17/24 09:35 Carvedilol 12.5 Mg Tablet PO 12.5 mg BID TRI Administration Protocol Ferrous Sulfate 325 mg 03/08/24 17:00 03/17/24 09:33 Ferrous Sulfate 325 Mg Tablet PO 325 mg BIDCM TRI Administration Sodium Chloride 250 mls @ 15 mls/hr 02/17/24 00:38 02/23/24 09:27 IV Infused .[id number] PRN Infusion Additional IVPB Infusion Sodium Chloride 250 mls @ 15 mls/hr 02/17/24 00:38 IV .[id number] PRN Saline Flush L-Arginine/L-Glutamine/Calcium HMB 1 packet 03/14/24 17:00 03/17/24 09:32 Alexis (Unflavored) Packet PO 1 packet BIDCM TRI Administration Lactic Acid 1 applic 02/24/24 22:00 03/17/24 09:35 Ammonium Lactate 225 Gm Bottle TOPICAL 1 applic BID TRI Administration Protocol Lansoprazole 30 mg 03/09/24 10:00 03/17/24 09:36 Lansoprazole 15 Mg Capsule.Dr PO 30 mg DAILY TRI Administration Magnesium Citrate 300 ml 03/08/24 11:31 Magnesium Citrate 300 Ml PO DAILY PRN Constipation Melatonin 3 mg 03/08/24 11:31 Melatonin 3 Mg Tablet PO QHS PRN Sleep Methocarbamol 500 mg 03/08/24 11:31 Methocarbamol 500 Mg Tablet PO Q8H PRN Muscle spasms Ondansetron HCl 4 mg 03/08/24 11:32 Ondansetron Odt 4 Mg Tablet PO Q8H PRN nausea Oxycodone HCl 10 mg 03/08/24 11:32 03/17/24 09:52 Oxycodone 5 Mg Tablet PO 10 mg Q4H PRN PRN Administration Pain Score 6-10 or Pre PT/OT Polyethylene Glycol 17 gm 02/15/24 20:39 02/24/24 05:28 Polyethylene Glycol 3350 17 Gm Packet GT 17 gm DAILY PRN Administration Constipation Polyethylene Glycol 17 gm 03/02/24 22:00 03/17/24 09:36 Polyethylene Glycol 3350 17 Gm Packet GT 17 gm BID TRI Administration Senna/Docusate Sodium 2 tablet 03/08/24 22:00 03/17/24 09:36 Senna/Docusate Sodium 1 Tablet PO 2 tablet BID TRI Administration Simvastatin 20 mg 03/08/24 22:00 03/16/24 22:07 Simvastatin 20 Mg Tablet PO 20 mg QHS TRI Administration Sodium Chloride 10 - 40 ml 02/17/24 00:37 03/03/24 10:44 0.9% Saline Lock 10 Ml Syringe IV 10 ml UD PRN Administration SALINE FLUSH Tramadol HCl 50 mg 03/08/24 11:33 Tramadol 50 Mg Tablet PO Q6H PRN PRN Pain Score 4-5 or Pre PT/OT Trazodone HCl 100 mg 03/08/24 22:00 03/16/24 22:07 Trazodone 100 Mg Tablet PO 100 mg QHS TRI Administration Warfarin Sodium 2.5 mg 03/12/24 17:00 03/14/24 18:19 Warfarin 2.5 Mg Tablet PO 2.5 mg DINNER TRI Administration Problem List DVT (deep venous thrombosis) (Acute) Xerosis cutis (Acute) Pain in right toe(s) (Acute) Pain in toe of left foot (Acute) Lymphedema (Acute) Other specified peripheral vascular diseases (Acute) Tinea unguium (Acute) Muscle spasm (Acute) Acute on chronic heart failure with preserved ejection fraction (HFpEF) (Acute) Bilateral pleural effusion (Acute) Status post insertion of percutaneous endoscopic gastrostomy (PEG) tube (Acute) Large hiatal hernia (Acute) Esophageal obstruction (Acute) Insomnia (Acute) Allergic rhinitis (Acute) Coronary artery disease (Acute) Atrial fibrillation (Acute) Hyperlipidemia (Acute) Debility (Acute) Vital Signs Temp Pulse Resp BP Pulse Ox O2 Del Method O2 Flow Rate 97.7 F L 61 16 108/55 L 94 Room Air 1 03/17/24 15:03/17/24 15:03/17/24 15:03/17/24 15:03/17/24 15:03/17/24 15:03/09/24 10:34 FiO2 94 03/05/24 22:33 Oxygen Flow Rate (L/min) 1 Oxygen Delivery Method Room Air Weight: 99.904 kg Body Mass Index (BMI) 28.3 Sodium 139 mmol/L (136-145) 03/15/24 05:16 Potassium 4.5 mmol/L (3.5-5.1) 03/15/24 05:16 Chloride 110 mmol/L (98-107) H 03/15/24 05:16 Carbon Dioxide 27.0 mmol/L (21.0-32.0) 03/15/24 05:16 Anion Gap 2 (5-15) L 03/15/24 05:16 BUN 25 mg/dL (7-18) H 03/15/24 05:16 Creatinine 2.14 mg/dL (0.70-1.30) H 03/15/24 05:16 Est GFR (MDRD) Af Amer 38 mL/min (>60) L 03/15/24 05:16 Est GFR (MDRD) Non-Af 31 mL/min (>60) L 03/15/24 05:16 BUN/Creatinine Ratio 11.7 RATIO (10-20) 03/15/24 05:16 Glucose 96 mg/dL (74-106) 03/15/24 05:16 Assessment/Plan: 1. Pain: Tylenol 500mg GT Q8h PRN Pain 1-10, oxycodone 10 mg PO Q4H PRN pain 6-10, tramadol 50 mg Q6H PRN pain 4-5. Please continue to monitor for S/S increased/decreased pain, PRN medication usage. - The patient has required 14 doses of PRN oxycodone to date. 2. Atrial Fibrillation/ HLD: Amiodarone 200mg GT Daily, Coreg 25mg GT BID, Simvastatin 20mg GT QHS, Warfarin 2.5mg GT // and Warfarin 1mg ///. Please continue to monitor blood pressures (recent range = 100-126/50-71 mmHg), pulse (recent range = 60-62 bpm), s/s bleeding/bruising, INR (3.4 on 03/17/24), lipid panel annually (none on file). 3. CHF: Coreg 25mg GT BID. Please continue to monitor blood pressure, pulse, I/O, s/s increased fluid retention, renal function (Scr 2.14 on 03/15). 4. GERD: Prevacid 30mg GT Daily. Please continue to monitor for GERD exacerbations, abdominal pain, headache. 5. Iron Deficiency Anemia: Ferrous sulfate 325mg PO BIDCM. Please continue to monitor H/H (Hgb 8.8 on 03/15), GI upset, nausea, iron studies (last done 02/11/24). 6. Muscle Spasm: Methocarbamol 500mg GT Q8h PRN. This is a BEER's criteria medication which can have anticholinergic side effects on patients greater than 65 years of age. Please continue to monitor closely for risk v. benefit if patient requires doses. To date, the patient has not needed/ used any doses of this medication. 7. Nausea: Zofran 4mg GT Q8h PRN. Please continue to monitor for PRN medication usage, headache, medication effectiveness. -The patient has not needed any doses of this medication since admission. 8. Insomnia: melatonin 3mg GT QHS PRN. Please continue to monitor for medication effectiveness, oversedation, PRN usage. If medication appears ineffective, please consider administration of medication at least 2 hours prior to desired bedtime for optimal effectiveness. 9. Skin Integrity: Calmoseptine topically BID, ammonium lactate topically BID. Please continue to monitor for skin irritation, redness, ulcer formation. 10. Bowel: Senna 2 tab GT Daily PRN, Miralax 17g GT Daily and PRN, magnesium citrate daily PRN constipation, bisacodyl 10 mg rectal daily PRN constipation. Please continue to monitor for increased/decreased S/S constipation and/or diarrhea. -The patient's last bowel movement was 03/16/24. 11. Nutrition: Alexis 1 packet PO BID with meals. Please continue to monitor overall nutritional status. Assessment/Plan for indications treated with psychotropic medications: 1. Insomnia: Trazodone 100mg GT QHS. Please continue to monitor for insomnia and sedation. Please consider a GDR by 07/2024 if clinically indicated, thank you. Medical chart and medication regimen reviewed. The following medication irregularities or issues were identified: NA Date Date of Note:: 03/17/24 Documented by User: Dr. Wagner Richardson MD 03/18/24 06:25 TCU RX Drug Regimen Review Provider Comments Provider responsibility Provider Comments to Recommendations by Pharmacy: Agree
[2024-03-17] MEDS: traZODone 100 MG Tablet PO (21:40)
[2024-03-17] MEDS: Simvastatin 20 MG Tablet PO (21:41)
[2024-03-17 21:48] VITALS: BP 117/60; PULSE 61
[2024-03-18 05:59] VITALS: BMI 27.8
[2024-03-18 06:35] LABS: International Normalized Ratio 1.6; Prothrombin Time (Protime)PT. 19.1 SECONDS (11.7-14.9)
[2024-03-18 06:43] LABS: Bedside Glucose 92 mg/dL (74-106)
[2024-03-18 10:00] VITALS: BP 124/51; PULSE 60; O2SAT 93
--- NOTE | 2024-03-18 10:02 | NURSING ---
dr stephenson notified of INR 1.6, restart warfarin 1.5mg today.
[2024-03-18] MEDS: Ammonium Lactate 225 gm Bottle 1 APPLIC TOPICAL ×2 (10:14→21:35)
[2024-03-18] MEDS: Juven (unflavored) Packet 1 PACKET PO ×2 (10:20→17:03)
[2024-03-18] MEDS: Polyethylene Glycol 3350 17 GM PACKET GT ×2 (10:20→21:37)
[2024-03-18] MEDS: Ferrous Sulfate 325 MG Tablet PO ×2 (10:21→17:03)
[2024-03-18] MEDS: Menthol/Lanolin/Calamine/Znox 113 GM Tube 1 APPLIC TOPICAL ×2 (10:22→21:35)
[2024-03-18] MEDS: Amiodarone 200 MG Tablet PO (10:23)
[2024-03-18] MEDS: Lansoprazole 15 MG Capsule.DR 30 MG PO (10:24)
[2024-03-18] MEDS: Carvedilol 12.5 MG Tablet PO ×2 (10:24→21:36)
[2024-03-18] MEDS: Senna/Docusate Sodium 1 Tablet 2 TABLET PO ×2 (10:25→21:36)
[2024-03-18] MEDS: oxyCODONE 5 MG Tablet 10 MG PO ×2 (10:31→21:35)
[2024-03-18 16:00] VITALS: BP 105/53; PULSE 60; RESP 16; TEMP 36.2
[2024-03-18] MEDS: Warfarin 0.5 MG Tablet 1.5 MG PO (17:03)
[2024-03-18] MEDS: traZODone 100 MG Tablet PO (21:36)
[2024-03-18] MEDS: Simvastatin 20 MG Tablet PO (21:36)
[2024-03-18 21:40] VITALS: RESP 17
[2024-03-18 21:48] VITALS: BP 135/69; PULSE 61
[2024-03-19 05:42] VITALS: BMI 27.9
[2024-03-19 05:52] VITALS: RESP 16
[2024-03-19 05:58] LABS: International Normalized Ratio 1.5; Prothrombin Time (Protime)PT. 17.8 SECONDS (11.7-14.9)
[2024-03-19 06:50] LABS: Bedside Glucose 88 mg/dL (74-106)
[2024-03-19] MEDS: Juven (unflavored) Packet 1 PACKET PO ×2 (08:09→18:02)
[2024-03-19] MEDS: Amiodarone 200 MG Tablet PO (08:09)
[2024-03-19] MEDS: Ferrous Sulfate 325 MG Tablet PO ×2 (08:09→18:02)
[2024-03-19] MEDS: Carvedilol 12.5 MG Tablet PO ×2 (08:10→21:21)
[2024-03-19] MEDS: Lansoprazole 15 MG Capsule.DR 30 MG PO (08:10)
[2024-03-19] MEDS: Senna/Docusate Sodium 1 Tablet 2 TABLET PO ×2 (08:10→21:21)
[2024-03-19] MEDS: Polyethylene Glycol 3350 17 GM PACKET GT ×2 (08:10→21:21)
[2024-03-19] MEDS: Ammonium Lactate 225 gm Bottle 1 APPLIC TOPICAL ×2 (08:14→21:21)
[2024-03-19] MEDS: Menthol/Lanolin/Calamine/Znox 113 GM Tube 1 APPLIC TOPICAL ×2 (08:15→21:22)
--- NOTE | 2024-03-19 10:28 | CASEMGMT ---
Addendum entered by Betty Burrell 03/20/24 14:57: SW followed up with son on HHC preference. Son prefers [facility]. IDT also requesting to add [facility] to order. SW phoned referral to [facility] for PT/OT/ST/SN/[facility] Original Note: Social Work SW received call from son requesting to set DC date for 03/22. IDT agreeable. Son inquired if peg tube can be removed prior to DC. SW to follow up with nursing. Son confirmed no DME needs and wish for skilled HHC. SW inquired about [facility] of choice or offered list of skilled HHC providers with quality and resource data via [email or web address] Guide. Son agreed to list and to leave it in pt's room for tomorrow's visit. Son to transport pt home. SW inquired to nursing about peg tube. GI will see pt after to DC to determine removal. SW left written note to son with HHC provider list in pt's room. Plan: DC home with son 03/22, HHC PT/OT/ST/SN. Betty Burrell, NEVIN HOSKINSW
[2024-03-19 13:42] VITALS: BP 121/63; PULSE 74; RESP 16; TEMP 36.3; O2SAT 96
--- NOTE | 2024-03-19 14:31 | NURSING ---
Updated resident that staff members and another resident tested positive for covid. He would like to update his family.
--- NOTE | 2024-03-19 15:06 | WOUNDNOTE ---
Heel dressings due to be changed tomorrow 03/20/24. will monitor.
[2024-03-19] MEDS: Warfarin 0.5 MG Tablet 1.5 MG PO (18:02)
--- NOTE | 2024-03-19 18:56 | PCM.DC.SUM ---
Providers Date of Admission: 02/15/24 Primary Care Physician: KERRIE Mas Consultations 02/21/24 16:05 Consult: Onc/Wound/divinity professor Routine Comment: Reason for Consult:: left heel 02/23/24 17:06 Consult: Podiatry Routine Consulting Provider: Demar Gao Reason for Consult: General toenail care. EMERGENT Consult: No MD Notified: Yes Date Notified: 02/23/24 Time Notified: 17:06 Method of Notification: Verbal 03/09/24 10:04 Consult: Vascular Surgery Routine Consulting Provider: Nitza Tenorio Reason for Consult: RLE DVT EMERGENT Consult: No MD Notified: Yes Date Notified: 03/09/24 Time Notified: 10:07 Method of Notification: Answering Service Reason For Visit: ESOPHAGEAL STENOSIS Diagnosis Discharge Diagnosis (1) Debility: Status: Acute Code(s): R53.81 - Other malaise (2) Dysphagia: Status: Inactive Code(s): R13.10 - Dysphagia, unspecified (3) Esophageal obstruction: Status: Acute Code(s): K22.2 - Esophageal obstruction (4) Large hiatal hernia: Status: Acute Code(s): K44.9 - Diaphragmatic hernia without obstruction or gangrene (5) Esophageal achalasia: Status: Inactive Code(s): K22.0 - Achalasia of cardia (6) Status post insertion of percutaneous endoscopic gastrostomy (PEG) tube: Status: Acute Code(s): Z93.1 - Gastrostomy status (7) Bilateral pleural effusion: Status: Acute Code(s): J90 - Pleural effusion, not elsewhere classified (8) Acute on chronic heart failure with preserved ejection fraction (HFpEF): Status: Acute Code(s): I50.33 - Acute on chronic diastolic (congestive) heart failure (9) Atrial fibrillation: Status: Acute Code(s): I48.91 - Unspecified atrial fibrillation (10) Coronary artery disease: Status: Acute Code(s): I25.10 - Atherosclerotic heart disease of [place] coronary artery without angina pectoris (11) Allergic rhinitis: Status: Acute Code(s): J30.9 - Allergic rhinitis, unspecified (12) Insomnia: Status: Acute Code(s): G47.00 - Insomnia, unspecified (13) Muscle spasm: Status: Acute Code(s): M62.838 - Other muscle spasm (14) GERD (gastroesophageal reflux disease): Status: Inactive Code(s): K21.9 - Gastro-esophageal reflux disease without esophagitis (15) Hyperlipidemia: Status: Acute Code(s): E78.5 - Hyperlipidemia, unspecified Qualifiers: Hyperlipidemia type: pure hypercholesterolemia Qualified Code(s): E78.00 - Pure hypercholesterolemia, unspecified; E78.0 - Pure hypercholesterolemia Plan 88 year old male with below past medical history hospitalized for nausea, vomiting 2/2 esophageal obstruction, hiatal hernia, achalasia, underwent PEG placement 02/14/[address] Zhang, complicated by acute on chronic HFpEF, bilateral pleural effusion, admitted to TCU with debility, here for rehabilitation, strengthening, prior to discharge home alone. Debility - PT/OT. Dysphagia - ST. Pain - Tylenol 1000mg q6 prn, Tramadol 50mg q6 prn. Bowel - Miralax 17gm twice daily, and daily prn, Senna/colace 2 tablets bid, Dulcolax 10mg pr daily prn, Magnesium citrate 300ml daily prn. Adult immunization - Administer pneumonia vaccine, covid vaccine, flu vaccine as appropriate DVT prophylaxis - on warfarin. Atrial fibrillation - Coreg 12.5mg bid, Amiodarone 200mg daily, Warfarin 2.5mg daily, follow INR. Iron deficiency anemia - Ferrous sulfate 325mg bidcm. Chronic HFpEF - Coreg 12.5mg bid. GERD - Lansoprazole 30mg daily. Insomnia - Melatonin 3mg qhs prn. Skin irritation - Calmoseptine topical bid. Muscle spasm - Robaxin 500mg q8 prn. Hyperlipidemia - Simvastatin 20mg qhs. Insomnia - Trazodone 100mg qhs. Right soleus vein dvt - appreciate Nitza Tenorio consultation, stable on doppler over 1 week, repeat doppler in another week to document stability. Dry skin - Ammonium lactate topical bid. Medications at Discharge Home Medications warfarin 5 mg tablet (Coumadin) 2.5 mg feeding tube TUWEFR Anticoagulant 04/21/20 warfarin 1 mg tablet 1 mg feeding tube SUMOTHSA Anticoagulant 01/31/24 amiodarone 200 mg tablet 200 mg PO DAILY #0 tabs 03/19/24 arginine 7 gram-glutam 7 gram-CaHMB 1.5 [id number]-min oral pwd pkt (Alexis (with collagen)) 1 packet PO BIDCM 30 days #60 ea 03/19/24 carvedilol 12.5 mg tablet 12.5 mg PO BID #0 tabs 03/19/24 ferrous sulfate 325 mg (65 mg iron) tablet (FeroSul) 325 mg PO BIDCM #0 tabs 03/19/24 lansoprazole 15 mg capsule,delayed release 30 mg (2 x 15 mg) PO DAILY 30 days #60 caps 03/19/24 sennosides 8.6 mg-docusate sodium 50 mg tablet (Stimulant Laxative Plus) 2 tab PO BID 30 days #120 tabs 03/19/24 simvastatin 20 mg tablet 20 mg PO QHS #0 tabs 03/19/24 trazodone 100 mg tablet 100 mg PO QHS 30 days #30 tabs 03/19/24 Hospital Course Operations None Procedures None Summary of Care Provided Minutes Spent on Discharge: 35 Hospital Course: 88 year old male with below past medical history hospitalized for nausea, vomiting 2/2 esophageal obstruction, hiatal hernia, achalasia, underwent PEG placement 02/14/[address] Zhang, complicated by acute on chronic HFpEF, bilateral pleural effusion, admitted to TCU with debility, here for rehabilitation, strengthening, prior to discharge home alone. Vascular surgery consulted for right soleus dvt, doppler ultrasound repeated to document stability, continue warfarin. Discharge home with son 03/22/2024, [facility] PT/OT/ST/SN. Physical Exam Const alert General Appearance: cooperative HEENT normocephalic Eyes PERRL and EOMs intact bilaterally Neck supple, no JVD and no carotid bruits Resp normal respiratory effort, normal air movement and clear to auscultation bilaterally Cardio regular rate and regular rhythm GI normal to inspection, nondistended, normoactive bowel sounds, non-tender and non-distended GI Narrative: PEG present. Extremity normal capillary refill General Extremity: Negative for edema Skin no rashes or lesions noted General Skin Exam: no breakdown Psych affect normal Appearance: appropriate Weight / BMI Weight Weight: 98.702 kg Body Mass Index (BMI) 27.9 ABG / Lab / Microbiology Data 03/15/24 05:16 03/15/24 05:16 Laboratory: Laboratory Results - last 24 hr 03/19/24 05:25: PT 17.8 H, INR 1.5 03/19/24 06:30: POC Glucose 88 Microbiology: Microbiology 02/16/24 05:38 Nasal Secretion SARS-CoV-2 Antigen (Rapid) - Final D/C Instructions Discharge Diet: No restrictions Discharge Activity: Return to Normal Activity, May Shower and Use Walker Weight Bearing Status: Weight bearing as tolerated Call your doctor if you observe: Fever of 101 or Higher, Inability to urinate, Inability to have a bowel movement, Shortness of breath, Dizziness, Fainting spells, Swelling in the ankles, Chest pain and Uncontrolled pain Additional Instructions: Discharge home with son 03/22/2024, [facility] PT/OT/ST/SN. Meaningful Use Info Meaningful Use Meaningful Use Diagnoses (Choose all that apply): None applicable Ischemic Stroke Statin Dosing Therapy Reference: STATIN DOSE THERAPY REFERENCE: * Patients > 75 years receive moderate or high dose statin therapy. * Patients 75 years or YOUNGER should receive HIGH intensity statin dose unless contraindicated. You will be required to document reason for non-treatment if statin daily dose does not meet guidelines. HIGH DOSE STATIN THERAPY DAILY Atorvastatin > than or = to 40 mg Rosuvastatin > than or = to 20 mg Amlodipine + Atorvastatin > than or = to 2.5/40 mg Ezetimibe + Simvastatin 10/80 mg Simvastatin 80mg Discharge Plan Admission Admit Date/Time: 02/15/24 18:21 Primary Reason for Your Visit: Debility. Attending Provider: Wagner Richardson Chi Primary Care Provider: Ian Hathaway Consulting Providers: Demar Gao; Nitza Tenorio Instructions Additional Instructions / Restrictions: Discharge home with son 03/22/2024, [facility] PT/OT/ST/SN. Discharge Orders/Prescriptions Prescriptions: New carvedilol 12.5 mg Tablet 12.5 mg PO BID Qty: 0 0RF amiodarone 200 mg Tablet 200 mg PO DAILY Qty: 0 0RF sennosides-docusate sodium [Stimulant Laxative Plus] 8.6-50 mg Tablet 2 tab PO BID 30 Days Qty: 120 0RF trazodone 100 mg Tablet 100 mg PO QHS 30 Days Qty: 30 0RF simvastatin 20 mg Tablet 20 mg PO QHS Qty: 0 0RF ferrous sulfate [FeroSul] 325 mg (65 mg iron) Tablet 325 mg PO BIDCM Qty: 0 0RF lansoprazole 15 mg Capsule,Delayed Release(Dr/Ec) 30 mg PO DAILY 30 Days Qty: 60 0RF Alexis (with collagen) 7-7-1.5 gram Powder In Packet 1 packet PO BIDCM 30 Days Qty: 60 0RF Continued warfarin [Coumadin] 5 mg tablet 2.5 mg feeding tube Protocol: Dose Management Condition: Tuesday Dose/Route: 1 mg Instruction: 1 x 1 mg tablet Condition: Tuesday Dose/Route: 1 mg Instruction: 1 x 1 mg tablet Condition: Tuesday Dose/Route: 2.5 mg Instruction: 0.5 x 5 mg tablets Condition: Tuesday Dose/Route: 2.5 mg Instruction: 0.5 x 5 mg tablets Condition: Dose/Route: 1 mg Instruction: 1 x 1 mg tablet Condition: Tuesday Dose/Route: 2.5 mg Instruction: 0.5 x 5 mg tablets Condition: Tuesday Dose/Route: 1 mg Instruction: 1 x 1 mg tablet Protocol Text: Adjustment Start Date: Tuesday01/16/24 INR Value: 3.1 INR Date: 01/16/24 Recheck Date: 01/30/24 warfarin 1 mg tablet 1 mg feeding tube SUMO Protocol: Dose Management Condition: Tuesday Dose/Route: 1 mg Instruction: 1 x 1 mg tablet Condition: Tuesday Dose/Route: 1 mg Instruction: 1 x 1 mg tablet Condition: Tuesday Dose/Route: 2.5 mg Instruction: 0.5 x 5 mg tablets Condition: Tuesday Dose/Route: 2.5 mg Instruction: 0.5 x 5 mg tablets Condition: Dose/Route: 1 mg Instruction: 1 x 1 mg tablet Condition: Tuesday Dose/Route: 2.5 mg Instruction: 0.5 x 5 mg tablets Condition: Tuesday Dose/Route: 1 mg Instruction: 1 x 1 mg tablet Protocol Text: Adjustment Start Date: Tuesday01/16/24 INR Value: 3.1 INR Date: 01/16/24 Recheck Date: 01/30/24 Rx Instructions: 1 mg orally on , Mo, , Sat (takes a 2.5 mg tablet all other days of the week).Needs more pills for dose modification prn; Discontinued carvedilol 25 mg tablet 25 mg feeding tube BID polyethylene glycol 3350 [Miralax] 17 gram/dose powder 17 g feeding tube DAILY PRN (Reason: constipation) acetaminophen [Tylenol Extra Strength] 500 mg tablet 500 mg feeding tube Q8H PRN (Reason: pain (scale score 1-3)) simvastatin 20 MG tablet 20 mg feeding tube QHS melatonin 3 mg tablet 3 mg feeding tube QHS PRN (Reason: Sleep) methocarbamol 500 mg tablet 500 mg feeding tube Q8H PRN (Reason: Muscle spasms) ondansetron 4 mg tablet,disintegrating 4 mg feeding tube Q8H PRN (Reason: nausea) amiodarone 200 mg tablet 200 mg feeding tube DAILY losartan 50 mg tablet 25 mg feeding tube DAILY furosemide [Lasix] 40 mg tablet 60 mg feeding tube DAILY ferrous sulfate 325 mg (65 mg iron) tablet 325 mg feeding tube BID omeprazole 20 mg capsule,delayed release(DR/EC) 40 mg feeding tube DAILY trazodone 50 mg tablet 50 mg feeding tube QHS Patient Comments: TAKE 1 TABLET BY MOUTH ONCE DAILY AT BEDTIME NEEDED FOR SLEEP sennosides [Senokot] 8.6 mg tablet 17.2 mg feeding tube DAILY PRN (Reason: constipation) enoxaparin 30 mg/0.3 mL Syringe 30 mg subcut DAILY Qty: 0 0RF menthol-zinc oxide [Calmoseptine] 0.44-20.6 % Ointment 1 applic topical BID Qty: 0 0RF Protocol: *Topical Application Instructions APPLICATION INSTRUCTIONS: buttocks Referrals / Follow Up: Ian Hathaway PA [Primary Care Provider] - Disposition Disposition (needs filled in before D/C Order can be placed): Home Health Service
[2024-03-19 21:15] VITALS: BP 133/67; PULSE 60; RESP 16
[2024-03-19] MEDS: traZODone 100 MG Tablet PO (21:21)
[2024-03-19] MEDS: Simvastatin 20 MG Tablet PO (21:21)
[2024-03-19] MEDS: traMADol 50 MG Tablet PO (21:21)
[2024-03-20 05:20] VITALS: BMI 27.2
[2024-03-20 06:29] LABS: Bedside Glucose 90 mg/dL (74-106)
[2024-03-20 06:31] LABS: International Normalized Ratio 1.5; Prothrombin Time (Protime)PT. 17.8 SECONDS (11.7-14.9)
[2024-03-20 09:13] VITALS: BMI 27.2
[2024-03-20] MEDS: Carvedilol 12.5 MG Tablet PO ×2 (10:25→20:05)
[2024-03-20] MEDS: Juven (unflavored) Packet 1 PACKET PO ×2 (10:26→17:26)
[2024-03-20] MEDS: Ferrous Sulfate 325 MG Tablet PO ×2 (10:27→17:26)
[2024-03-20] MEDS: Ammonium Lactate 225 gm Bottle 1 APPLIC TOPICAL ×2 (10:29→20:06)
[2024-03-20] MEDS: Menthol/Lanolin/Calamine/Znox 113 GM Tube 1 APPLIC TOPICAL ×2 (10:29→20:07)
[2024-03-20 10:31] VITALS: BP 122/61; PULSE 60; O2SAT 96
[2024-03-20] MEDS: Polyethylene Glycol 3350 17 GM PACKET GT ×2 (11:25→20:06)
[2024-03-20] MEDS: Amiodarone 200 MG Tablet PO (11:26)
[2024-03-20] MEDS: Lansoprazole 15 MG Capsule.DR 30 MG PO (11:26)
[2024-03-20] MEDS: Senna/Docusate Sodium 1 Tablet 2 TABLET PO ×2 (11:26→20:06)
[2024-03-20 13:45] VITALS: PULSE 60; RESP 18; O2SAT 94
--- NOTE | 2024-03-20 14:45 | WOUNDNOTE ---
wound photo: left heel
--- NOTE | 2024-03-20 14:45 | WOUNDNOTE ---
wound photo: right heel
[2024-03-20 15:06] VITALS: BP 108/58; PULSE 60; RESP 16; TEMP 35.9; O2SAT 94
--- NOTE | 2024-03-20 16:06 | NURSING ---
ESSIERN/WOUND NURSE IN TO [facility] PT DRESSINGS TO [facility].
[2024-03-20] MEDS: Warfarin 0.5 MG Tablet 1.5 MG PO (17:27)
[2024-03-20 20:00] VITALS: BP 116/57; PULSE 61; RESP 16
[2024-03-20] MEDS: oxyCODONE 5 MG Tablet 10 MG PO (20:05)
[2024-03-20] MEDS: Simvastatin 20 MG Tablet PO (20:06)
[2024-03-20] MEDS: traZODone 100 MG Tablet PO (20:07)
[2024-03-21 06:00] VITALS: BMI 27.2
[2024-03-21 06:21] LABS: Bedside Glucose 86 mg/dL (74-106)
[2024-03-21 09:10] VITALS: BP 119/62; PULSE 60; RESP 16; TEMP 36.1; O2SAT 94
[2024-03-21] MEDS: Polyethylene Glycol 3350 17 GM PACKET GT ×2 (09:12→22:00)
[2024-03-21] MEDS: Juven (unflavored) Packet 1 PACKET PO ×2 (09:12→16:46)
[2024-03-21] MEDS: Senna/Docusate Sodium 1 Tablet 2 TABLET PO ×2 (09:13→22:03)
[2024-03-21] MEDS: Ferrous Sulfate 325 MG Tablet PO ×2 (09:13→16:46)
[2024-03-21] MEDS: Amiodarone 200 MG Tablet PO (09:13)
[2024-03-21] MEDS: Carvedilol 12.5 MG Tablet PO ×2 (09:13→22:02)
[2024-03-21] MEDS: Lansoprazole 15 MG Capsule.DR 30 MG PO (09:13)
[2024-03-21] MEDS: Menthol/Lanolin/Calamine/Znox 113 GM Tube 1 APPLIC TOPICAL ×2 (09:14→22:03)
[2024-03-21] MEDS: Ammonium Lactate 225 gm Bottle 1 APPLIC TOPICAL ×2 (09:14→22:04)
[2024-03-21] MEDS: oxyCODONE 5 MG Tablet 10 MG PO ×2 (09:22→22:00)
[2024-03-21] MEDS: Warfarin 0.5 MG Tablet 1.5 MG PO (16:46)
[2024-03-21 21:56] VITALS: BP 115/58; PULSE 61
[2024-03-21] MEDS: traZODone 100 MG Tablet PO (22:03)
[2024-03-21] MEDS: Simvastatin 20 MG Tablet PO (22:03)
[2024-03-22 05:26] VITALS: BMI 27.1
[2024-03-22 06:42] VITALS: PULSE 61; RESP 16; O2SAT 96
[2024-03-22 06:43] LABS: Bedside Glucose 87 mg/dL (74-106)
[2024-03-22 09:11] VITALS: BP 106/53; PULSE 60; RESP 16; TEMP 36.4; O2SAT 96
[2024-03-22] MEDS: Lansoprazole 15 MG Capsule.DR 30 MG PO (09:13)
[2024-03-22] MEDS: Carvedilol 12.5 MG Tablet PO (09:13)
[2024-03-22] MEDS: Ferrous Sulfate 325 MG Tablet PO (09:13)
[2024-03-22] MEDS: Polyethylene Glycol 3350 17 GM PACKET GT (09:13)
[2024-03-22] MEDS: Juven (unflavored) Packet 1 PACKET PO (09:13)
[2024-03-22] MEDS: Amiodarone 200 MG Tablet PO (09:14)
[2024-03-22] MEDS: Senna/Docusate Sodium 1 Tablet 2 TABLET PO (09:14)
[2024-03-22] MEDS: Menthol/Lanolin/Calamine/Znox 113 GM Tube 1 APPLIC TOPICAL (09:14)
[2024-03-22] MEDS: Ammonium Lactate 225 gm Bottle 1 APPLIC TOPICAL (09:15)
[2024-03-22] MEDS: oxyCODONE 5 MG Tablet 10 MG PO (09:17)
--- NOTE | 2024-03-22 10:25 | NURSING ---
Discussed DC follow-ups with resident and son. Per son he already set up f/u with PCP and Dr. Zhang.
== END 2024-03-22 10:45 | disposition home health service (06) | DRG 391 ==
PROVIDERS: Admitting Provider Family Medicine Geriatric Medicine; PCP Physician Assistant; Visit Provider Family Medicine Geriatric Medicine
DX: K22.2 Esophageal obstruction (principal); J18.9 Pneumonia, unspecified organism; I13.0 Hypertensive heart and chronic kidney disease with heart failure and stage 1 through stage 4 chronic kidney disease, or unspecified chronic kidney disease; I42.8 Other cardiomyopathies; J91.8 Pleural effusion in other conditions classified elsewhere; I50.42 Chronic combined systolic (congestive) and diastolic (congestive) heart failure; I82.461 Acute embolism and thrombosis of right calf muscular vein; E11.22 Type 2 diabetes mellitus with diabetic chronic kidney disease; N18.30 Chronic kidney disease, stage 3 unspecified; D50.9 Iron deficiency anemia, unspecified; I48.0 Paroxysmal atrial fibrillation; L89.620 Pressure ulcer of left heel, unstageable; Z93.1 Gastrostomy status; K22.0 Achalasia of cardia; M62.838 Other muscle spasm; I25.10 Atherosclerotic heart disease of native coronary artery without angina pectoris; E78.00 Pure hypercholesterolemia, unspecified; J30.9 Allergic rhinitis, unspecified; K21.9 Gastro-esophageal reflux disease without esophagitis; K44.9 Diaphragmatic hernia without obstruction or gangrene; I89.0 Lymphedema, not elsewhere classified; L85.3 Xerosis cutis; B35.1 Tinea unguium; Z87.891 Personal history of nicotine dependence; G47.00 Insomnia, unspecified; R13.10 Dysphagia, unspecified; Z79.01 Long term (current) use of anticoagulants; Z79.899 Other long term (current) drug therapy; Z23 Encounter for immunization
CPT/HCPCS: 36415; 71046; 74018; 74230; 80048; 82962; 85025; 85610; 87811; 90480; 90662; 91322; 92526; 92610; 92611; 97110; 97116; 97162; 97166; 97530; 97535; 97802; 97803; J7030; J7050; A4216

== ENCOUNTER → 2024-03-02 | Outpatient (CLI) | payer MEDICARE, SELFPAY ==
--- NOTE | 2024-03-02 09:11 | VDLE_ITS ---
Reason For Study: BLE Swelling RIGHT LEFT GSV is normal. GSV is normal. CFV is compressible, spontaneous, competent CFV is compressible, spontaneous, competent, and demonstrates pulsatile venous flow. and demonstrates pulsatile venous flow. FV is compressible, spontaneous, competent FV is compressible, spontaneous, competent and demonstrates pulsatile venous flow. and demonstrates pulsatile venous flow. POP V is compressible, spontaneous, competent POP V is compressible, spontaneous, and demonstrates pulsatile venous flow. competent and demonstrates pulsatile venous T/P Trunk is compressible. flow. PTV is compressible. T/P Trunk is compressible. RT PerV is compressible. PTV is compressible. Acute deep vein thrombosis is noted in the LT PerV is compressible. Soleus Vein. It is dilated and NONCOMPRESSIBLE. Procedure This is a venous duplex using B-mode, color flow and spectral Doppler. Exam performed portable in patient room. The exam was diagnostic. A preliminary report was called and/or faxed to TCU reading aide. VL/Venous Duplex US - Salomon Extrem Interpretation Summary Acute deep vein thrombosis is noted in the right soleus vein. The remainder of the right lower extremity deep venous system is patent and compressible. There is no evidence o f left lower extremity deep vein thrombosis. Valvular competence appears intact within the p roximal deep venous systems bilaterally. The great saphenous veins appear bilaterally patent and co mpressible segmentally. Pulsatile flow is noted in the deep venous system bilaterally, whi ch may be indicative of elevated central venous pressure (i.e. congestive heart failure, pulmonary h ypertension, etc.). Clinical correlation is advised. Ordering Physician: Wagner Richardson Chi Referring Physician: Erum Hathaway Performed By: Paresh Austin RVT
== END | disposition home or self-care (01) ==
PROVIDERS: PCP Physician Assistant; Referring Provider Family Medicine Geriatric Medicine; Visit Provider Family Medicine Geriatric Medicine
DX: R60.0 Localized edema (principal)
CPT/HCPCS: 93970

== ENCOUNTER → 2024-03-09 | Outpatient (CLI) | payer MEDICARE, SELFPAY ==
--- NOTE | 2024-03-09 08:14 | VDLE_ITS ---
Reason For Study: HX RLE DVT RIGHT GSV is normal. CFV is compressible, spontaneous, phasic, competent and demonstrates normal augmentation. FV is compressible, spontaneous, phasic, competent and demonstrates normal augmentation. POP V is compressible, spontaneous, and pulsatile. T/P Trunk is compressible. PTV is compressible. RT PerV is compressible. Acute deep vein thrombosis is noted in the Soleus Vein. It is dilated and NONCOMPRESSIBLE. Procedure This is a venous duplex using B-mode, color flow and spectral Doppler. Exam performed portable in patient room. The exam was diagnostic. A preliminary report was called and/or faxed to TCU ballistics expert forensic. VL/Venous Duplex US, Unilateral Interpretation Summary Acute deep vein thrombosis is noted in the right soleus vein. The remainder of the right lower extremity deep venous system is patent and compressible. Valvular competence ap pears intact within the proximal deep venous system on the right . The right great saphenous vein a ppears patent and compressible segmentally. Ordering Physician: Wagner Richardson Chi Referring Physician: Ian Hathaway Performed By: Paresh Austin RVT
== END | disposition home or self-care (01) ==
PROVIDERS: PCP Physician Assistant; Referring Provider Family Medicine Geriatric Medicine; Visit Provider Family Medicine Geriatric Medicine
DX: R22.41 Localized swelling, mass and lump, right lower limb (principal)
CPT/HCPCS: 93971

== ENCOUNTER → 2024-03-16 | Outpatient (CLI) | payer MEDICARE, SELFPAY ==
--- NOTE | 2024-03-16 08:11 | VDLE_ITS ---
Reason For Study: Swelling RLE RIGHT LEFT GSV is normal. CFV is compressible, spontaneous, phasic, CFV is compressible, spontaneous, phasic, competent, and demonstrates normal competent and demonstrates normal augmentation. augmentation. FV is compressible, spontaneous, phasic, competent and demonstrates normal augmentation. POP V is compressible, spontaneous, phasic, competent and demonstrates normal augmentation. T/P Trunk is compressible. PTV is compressible. RT PerV is compressible. Procedure This is a venous duplex using B-mode, color flow and spectral Doppler. Exam performed portable in patient room. A preliminary report was called and/or faxed to TCU. VL/Venous Duplex US, Unilateral Interpretation Summary Deep veins of the right lower extremity are patent and compressible segmentally . There is no evidence of right lower extremity deep vein thrombosis. The right great sapheno us vein appears patent and compressible segmentally. Ordering Physician: Nitza Tenorio Referring Physician: Ian Hathaway Performed By: Clotilde Lugo RDCS, RVT
== END | disposition home or self-care (01) ==
LOC: CVS 08:09
PROVIDERS: PCP Physician Assistant; Referring Provider Physician Assistant; Visit Provider Physician Assistant
DX: R22.41 Localized swelling, mass and lump, right lower limb (principal)
CPT/HCPCS: 93971

== ENCOUNTER 2024-04-26 11:01 | Day surgery (SDC) | payer MEDICARE, SELFPAY ==
[2024-04-26] VITALS (13 sets, daily range): BP systolic 61–141; BP diastolic 44–73; PULSE 60–63; RESP 16–18; TEMP 36–36.6; O2SAT 92–100; BMI 31.2
[2024-04-26 11:49] LABS: INR Fingerstick 1.5; Prothrombin Time Fingerstick 17.5 SEC (11.7-14.9)
[2024-04-26 13:18] LABS: Bedside Glucose 95 mg/dL (74-106)
[2024-04-26] MEDS: 0.9% Normal Saline (500mL Bag) 500 ML 999 ML IV (13:46)
== END 2024-04-26 14:38 | disposition home or self-care (01) ==
LOC: EN 11:04 → AC 11:10
PROVIDERS: PCP Physician Assistant; Referring Provider Physician Assistant; Visit Provider Internal Medicine Gastroenterology
PROC: 0DJ08ZZ Inspection of Upper Intestinal Tract, Via Natural or Artificial Opening Endoscopic (ICD-10-PCS; CPT 43235; principal; 2024-04-26 12:10)
DX: K22.2 Esophageal obstruction (principal); Z93.1 Gastrostomy status; I50.22 Chronic systolic (congestive) heart failure; I13.0 Hypertensive heart and chronic kidney disease with heart failure and stage 1 through stage 4 chronic kidney disease, or unspecified chronic kidney disease; I48.0 Paroxysmal atrial fibrillation; E11.22 Type 2 diabetes mellitus with diabetic chronic kidney disease; N18.30 Chronic kidney disease, stage 3 unspecified; R13.10 Dysphagia, unspecified; Q39.8 Other congenital malformations of esophagus; I25.10 Atherosclerotic heart disease of native coronary artery without angina pectoris; Z79.899 Other long term (current) drug therapy; Z79.01 Long term (current) use of anticoagulants; Z86.718 Personal history of other venous thrombosis and embolism; Z87.891 Personal history of nicotine dependence
CPT/HCPCS: 43246; 43245; 36416; 82962; 85610; J7040; A4216; J2405

== ENCOUNTER 2024-06-27 09:05 | Outpatient (RCR) | payer MEDICARE, SELFPAY ==
[2024-01-18 21:45] VITALS: BMI 28.5
[2024-06-21 10:47] LABS: INR Fingerstick 3.4; Prothrombin Time Fingerstick 34.6 SEC (11.7-14.9)
[2024-06-27 09:18] LABS: INR Fingerstick 2.2; Prothrombin Time Fingerstick 24.2 SEC (11.7-14.9)
== END 2024-06-27 18:00 | disposition home or self-care (01) ==
LOC: LAB 09:05
PROVIDERS: Family Provider Physician Assistant; PCP Clinical Nurse Specialist Adult Health; Referring Provider Clinical Nurse Specialist Adult Health; Visit Provider Internal Medicine Cardiovascular Disease
DX: I48.0 Paroxysmal atrial fibrillation (principal); Z79.01 Long term (current) use of anticoagulants

== ENCOUNTER 2024-07-31 15:29 | Outpatient (RCR) | payer MEDICARE, SELFPAY ==
[2024-07-21 01:59] VITALS: BMI 28.5
[2024-07-31 15:43] LABS: INR Fingerstick 2.8; Prothrombin Time Fingerstick 28.3 SEC (11.7-14.9)
== END 2024-08-17 18:00 | disposition home or self-care (01) ==
LOC: LAB 15:29
PROVIDERS: Family Provider Physician Assistant; PCP Clinical Nurse Specialist Adult Health; Referring Provider Clinical Nurse Specialist Adult Health; Visit Provider Internal Medicine Cardiovascular Disease
DX: I48.0 Paroxysmal atrial fibrillation (principal); Z79.01 Long term (current) use of anticoagulants; N18.4 Chronic kidney disease, stage 4 (severe); N25.81 Secondary hyperparathyroidism of renal origin
CPT/HCPCS: 36416; 85610

== ENCOUNTER → 2024-08-07 | Outpatient (CLI) | payer MEDICARE, SELFPAY ==
--- NOTE | 2024-08-07 11:29 | RAD_ITS ---
PROCEDURE: CHEST PA AND LATERAL REASON FOR EXAM: Ppm generator change TECHNIQUE: Frontal and lateral views of the chest. COMPARISON: None. FINDINGS: Left chest pacemaker The heart size is normal. There are atherosclerotic calcifications of the thoracic aorta. There are chronic-appearing changes of both lungs. Blunting of the left costophrenic angle The bones are unremarkable. RAD/Chest PA and Lateral IMPRESSION: 1. Chronic interstitial changes in the lungs with mild left pleural effusion. 2. Support devices as described Reading Location: [facility]
[2024-08-07 11:45] LABS: Bacteria 0 SEEN /hpf (None Seen); Mucous, Urine 0 SEEN /hpf (<or=2+)
[2024-08-07 12:05] LABS: Hematocrit 33.8 % (40-54); Hemoglobin 10.5 g/dL (13.0-16.5); Mean Corp Hgb Conc 31.1 g/dL (32-36); Mean Corpuscular Hgb 29.8 pg (27.0-32.0); Mean Platelet Vol. 9.8 fl (6.2-12.0); Platelet Count 245 K/mm3 (150-450); RBC Distribution Width CV 14.5 % (11.6-14.6); RBC Distribution Width SD 50.7 fl (35.1-43.9); Red Blood Count 3.52 M/mm3 (4.6-6.2); White Blood Count 7.1 K/mm3 (4.4-11.0)
[2024-08-07 12:06] LABS: Glucose, Dipstick Normal (Normal); Ketone-Dipstick Negative (Negative); Leukocyte Esterase-Dipstick Negative /ul (Negative); Nitrite-Dipstick Negative (Negative); Occult Blood-Urine Negative /ul (Negative); Protein-Dipstick 15 mg/dl (Negative); Specific Gravity, Urine 1.015 (1.002-1.030); Urine Bilirubin Dipstick Negative (Negative); Urine Urobilinogen Normal (Normal)
[2024-08-07 12:10] LABS: Color, Urine Yellow (Yellow); Urine Clarity Clear (Clear)
[2024-08-07 12:12] LABS: International Normalized Ratio 1.9; Prothrombin Time (Protime)PT. 22.6 SECONDS (11.7-14.9)
[2024-08-07 12:17] LABS: Hyaline Cast 0-5 SEEN /lpf (0-5); Red Blood Cells-Urine 0-5 SEEN /hpf (0-5); Squamous Epithelial Cells - UA 0-5 SEEN /hpf (0-5); White Blood Cells 0-5 SEEN /hpf (0-5)
== END | disposition home or self-care (01) ==
PROVIDERS: PCP Clinical Nurse Specialist Adult Health; Referring Provider Internal Medicine Cardiovascular Disease; Visit Provider Internal Medicine Cardiovascular Disease
DX: T82.111A Breakdown (mechanical) of cardiac pulse generator (battery), initial encounter (principal); I48.91 Unspecified atrial fibrillation; I49.5 Sick sinus syndrome; I44.2 Atrioventricular block, complete; I47.20 Ventricular tachycardia, unspecified; Z95.0 Presence of cardiac pacemaker; I44.1 Atrioventricular block, second degree
CPT/HCPCS: 36415; 71046; 81001; 85027; 85610

== ENCOUNTER 2024-09-03 10:37 | Day surgery (SDC) | payer MEDICARE, SELFPAY ==
[2024-08-31 10:01] VITALS: BMI 33.9
[2024-09-03 11:17] LABS: International Normalized Ratio 1.3; Prothrombin Time (Protime)PT. 16.2 SECONDS (11.7-14.9)
[2024-09-03 11:51] LABS: Anion Gap 9 (5-15); BUN 40 mg/dL (4-19); BUN/Creat Ratio 19.7 RATIO (10-20); Calcium,Total 9.4 mg/dL (7.6-11.0); Chloride 110 mmol/L (98-108); Creatinine, Serum 2.02 mg/dL (0.70-1.20); EST Glomerular Filtration Rate 31 (>60); Estimated Creatinine Clearance 29.63 ml/min (50-250); Glucose 112 mg/dL (70-99); Potassium 4.4 mmol/L (3.3-5.1); Sodium Level 141 mmol/L (133-145)
--- NOTE | 2024-09-03 13:14 | CL.IE_ITS ---
Patient: PEG BAEZ Study Date: 09/03/2024 Performing: Loyd Plascencia MD : 1935 Age: 88 Gender: male PROCEDURES PERFORMED [id number])BATTERY REMOVAL+REPLACEMENT PACER-DUAL LEAD INDICATIONS Mobitz (type II) AV block PROCEDURE DETAILS The patient was brought to the Catheterization Lab in the postabsorptive nonsedated state. Informed consent was obtained prior to the procedure. Local anesthetic was given subcutaneously to the left upper chest area with Lidocaine 2%. Incision was made to the left upper chest. PPM generator was removed. PPM generator was attached to the lead(s) and inserted into the pocket. PPM generator was then interrogated by the rpg programmer. PPM atrial lead (existing) was checked and tested. PPM ventricular lead (existing) was checked and tested. Device pocket was irrigated with antibiotic. Subcutaneous closure was completed with 3-0 Vicryl. Skin closure was completed with 4-0 Vicryl. Steri-strips applied to Lt chest area. Instrument, sponge, and needle counts were noted to be normal. The patient tolerated the procedure well. Estimated Blood Loss: < 10 mls IMPLANTED / EX-PLANTED DEVICES IMPLANTED DEVICE(S): PPM Generator - Concrete Pipe Plant Supervisor: N-1-1, Model # ESSENTIO MRI , Serial # [id number] DEVICE PARAMETERS CONCLUSIONS / RECOMMENDATIONS Device Conclusions: Successful implantation of a dual chamber pacemaker battery change and replacement Device Recommendations: Follow up with Primary Care Physician PROCEDURE MEDICATIONS Fentanyl 25 mcg IV Versed 0.5 mg IV Fentanyl 25 mcg IV Oxygen: 2 L/min via nasal cannula Antibiotic given in appropriate timeframe. Ancef 2 Gm IV @ 09/03/2024 12:22:28 Signed By Loyd Plascencia MD On 09/03/2024 13:14:16 Loyd Plascencia MD
== END 2024-09-03 14:10 | disposition home or self-care (01) ==
PROVIDERS: PCP Clinical Nurse Specialist Adult Health; Referring Provider Internal Medicine Cardiovascular Disease; Visit Provider Internal Medicine Cardiovascular Disease
DX: Z95.0 Presence of cardiac pacemaker (principal); I11.0 Hypertensive heart disease with heart failure; I50.22 Chronic systolic (congestive) heart failure; I48.0 Paroxysmal atrial fibrillation; I44.30 Unspecified atrioventricular block; F41.9 Anxiety disorder, unspecified; F32.A Depression, unspecified; E66.3 Overweight; I25.2 Old myocardial infarction; Z79.01 Long term (current) use of anticoagulants; Z79.899 Other long term (current) drug therapy; Z87.891 Personal history of nicotine dependence
CPT/HCPCS: 33228; 36415; 80048; 85610; 99152; 99153

== ENCOUNTER 2024-09-10 10:08 | Outpatient (RCR) | payer MEDICARE, SELFPAY ==
[2024-08-18 04:52] VITALS: BMI 28.5
[2024-09-11 08:37] LABS: INR Fingerstick 3.8; Prothrombin Time Fingerstick 38.4 SEC (11.7-14.9)
== END 2024-09-10 18:00 | disposition home or self-care (01) ==
LOC: LAB 10:08
PROVIDERS: Family Provider Physician Assistant; PCP Clinical Nurse Specialist Adult Health; Referring Provider Internal Medicine Cardiovascular Disease; Visit Provider Internal Medicine Cardiovascular Disease
DX: I48.0 Paroxysmal atrial fibrillation (principal); Z79.01 Long term (current) use of anticoagulants
CPT/HCPCS: 36416; 85610

== ENCOUNTER 2024-09-19 09:01 | Outpatient (RCR) | payer MEDICARE, SELFPAY ==
[2024-09-17 22:14] VITALS: BMI 28.5
[2024-09-19 09:39] LABS: Prothrombin Time (Protime)PT. 32.2 SECONDS (11.7-14.9)
[2024-09-19 10:08] LABS: Free T3 3.1 pg/mL (2.18-3.98); Thyroid Stim Hormone (TSH) < 0.005 uIU/mL (0.300-4.200)
[2024-10-04 14:08] LABS: Anti-Thyroglobulin AB 1.4 IU/mL (0.0-0.9); Thyroglobulin RIA 249 ng/mL (.); Thyroid Peroxidase AB 15 IU/mL (0-34); Thyroid Stim Immunoglob <0.10 IU/L (0.00-0.55)
== END 2024-10-17 18:00 | disposition home or self-care (01) ==
LOC: LAB 09:01
PROVIDERS: Family Provider Physician Assistant; PCP Clinical Nurse Specialist Adult Health; Referring Provider Internal Medicine Cardiovascular Disease; Visit Provider Internal Medicine Cardiovascular Disease
DX: I48.0 Paroxysmal atrial fibrillation (principal); Z79.01 Long term (current) use of anticoagulants; E05.90 Thyrotoxicosis, unspecified without thyrotoxic crisis or storm; N18.4 Chronic kidney disease, stage 4 (severe); N25.81 Secondary hyperparathyroidism of renal origin
CPT/HCPCS: 36415; 84432; 84439; 84443; 84445; 84481; 85610; 86376; 86800